=== PATIENT | female | born 1995 | race Caucasian/White ===

== ENCOUNTER 2023-10-14 19:23 | Outpatient (REF) | payer OTHER, SELFPAY ==
[2023-10-20 09:12] LABS: Age Gdln ACOG Testing Note (.); IGP, rfx Aptima HPV ASCU Note (.)
== END 2023-10-14 19:24 | disposition home or self-care (01) ==
LOC: LAB 19:23
PROVIDERS: Visit Provider Obstetrics & Gynecology
DX: Z01.419 Encounter for gynecological examination (general) (routine) without abnormal findings (principal)
CPT/HCPCS: G0145

== ENCOUNTER 2024-10-17 12:49 | Outpatient (REF) | payer OTHER, SELFPAY ==
[2024-10-24 03:13] LABS: Age Gdln ACOG Testing Note (.); HPV Aptima Positive (Negative); IGP, rfx Aptima HPV ASCU Note (.)
== END 2024-10-17 12:50 | disposition home or self-care (01) ==
LOC: LAB 12:49
PROVIDERS: Visit Provider Obstetrics & Gynecology
DX: Z01.419 Encounter for gynecological examination (general) (routine) without abnormal findings (principal)
CPT/HCPCS: 87624; 88175

== ENCOUNTER 2024-10-31 12:49 | Outpatient (REF) | payer OTHER, SELFPAY ==
--- OUTSIDE RECORDS SUMMARY | 2024-11-06 13:16 | XMS_ITS | CCD ---
Author Organization [facility] Care Team Providers Care Customer Sales Distributor Name Role Phone Marcanthony, Aimee Unavailable Unavailable Marcanthony, Aimee Unavailable Unavailable DOCTOR, OUT OF TOWN Unavailable Unavailable Marcanthony, Aimee Unavailable Unavailable DOCTOR, OUT OF TOWN Unavailable Unavailable Marcanthony, Aimee Unavailable Unavailable Marcanthony, Aimee Unavailable Unavailable Marcanthony, Aimee Unavailable Unavailable Latha, Edward E Unavailable Unavailable Latha, Edward E Unavailable Unavailable JOSEFINA, NAVITA Unavailable Unavailable JOSEFINA, NAVITA Unavailable Unavailable Giuliana Mckee DO Primary Care Provider [phone] [facility]OSCH Primary Care Unavailable MARYANA ., DR PA Consulting Unavailable MARYANA ., DR PA Admitting Unavailable MARYANA ., DR PA Attending Unavailable [facility]OS[facility] Primary Care Unavailable MARYANA ., DR PA Admitting Unavailable MARYANA ., DR PA Attending Unavailable MARYANA ., DR PA Consulting Unavailable ZIEBER, DR CALLIE Bhagat Consulting Unavailable GIULIANA MCKEE Primary Care Unavailable BORIS SMITH Attending Unavailable Giuliana Mckee DO Primary Care Provider Ellis Mijares DO Unavailable ELLIS MIJARES Attending Unavailable ELLIS MIJARES Attending Unavailable Allergies Allergy Classification Reported Allergen(s) Allergy Type Date of Onset Reaction(s) Facility (2 sources) No Known Allergies Drug allergy (disorder) 04-12-2017 [facility] Repository Medications Current Medications Medication Drug Class(es) Dates Sig (Normalized) Sig (Original) acetaminophen 325 mg oral tablet (1 source) Start: 04-23-2016 take 2 tablets by mouth every four hours as needed for pain acetaminophen (TYLENOL) 325 MG tablet Take 2 tablets by mouth every 4 hours as needed for Pain or Fever 120 tablet 3 04/23/2016 Active sertraline 50 mg oral tablet (1 source) Serotonin Reuptake Inhibitor Start: 10-11-2019 take 1 tablet by mouth once daily sertraline (ZOLOFT) 50 MG tablet Take 1 tablet by mouth daily 30 tablet 5 10/11/2019 Active Problems Active Problems Problem Classification Problem Date Documented Date Episodic/Chronic Anxiety disorders (1 source) Anxiety; Translations: [Anxiety disorder, unspecified] Onset: 10-11-2019 10-11-2019 Chronic E Codes: Natural/environment (1 source) Bitten by dog, initial encounter; Translations: [Bitten by dog, initial encounter] Onset: 04-29-2023 Episodic Esophageal disorders (1 source) Gastroesophageal reflux disease; Translations: [Gastro-esophageal reflux disease without esophagitis] Onset: 03-06-2013 03-06-2013 Chronic Immunizations and screening for infectious disease (2 sources) Suspected disease caused by 2019-nCoV; Translations: [Suspected 2019-nCoV infection] Onset: 04-29-2023 Episodic Menstrual disorders (7 sources) Excessive and frequent menstruation with irregular cycle; Translations: [Menorrhagia] Onset: 07-27-2022 Chronic Open wounds of extremities (2 sources) Open bite of left hand, initial encounter; Translations: [Laceration without foreign body of left hand, initial encounter] Onset: 04-29-2023 Episodic Unclassified (5 sources) Encounter for screening for malignant neoplasm of cervix; Translations: [Z12.4 - Encounter for screening for malignant neoplasm of cervix] Onset: 06-01-2017 Episodic Unclassified (2 sources) 37 weeks gestation of ; Translations: [35 weeks gestation of ] Onset: 04-16-2017 Past or Other Problems Problem Classification Problem Date Documented Da te Episodic/Chronic Coma; stupor; and brain damage (1 source) Loss of consciousness; Translations: [Unspecified coma] Onset: 04-22-2016 Resolved: 06-01-2016 06-01-2016 Episodic Headache; including migraine (1 source) Headache; Translations: [Headache] Onset: 12-07-2013 Resolved: 06-01-2016 06-01-2016 Episodic Normal and/or delivery (5 sources) Encounter for supervision of normal first , third trimester; Translations: [Single live ] Onset: 02-01-2017 Episodic OB-related trauma to perineum and vulva (1 source) First degree perineal laceration during delivery; Translations: [O70.0 - First degree perineal laceration during delivery] Onset: 08-06-2017 Episodic Other bone disease and musculoskeletal deformities (1 source) Costal chondritis; Translations: [Chondrocostal junction syndrome [Tietze]] Onset: 03-06-2013 Resolved: 10-11-2019 10-11-2019 Episodic Other injuries and conditions due to external causes (1 source) Injury of head; Translations: [Unspecified injury of head, initial encounter] Onset: 04-22-2016 Resolved: 06-01-2016 06-01-2016 Episodic Polyhydramnios and other problems of amniotic cavity (1 source) Full-term premature rupture of membranes, onset of labor within 24 hours of rupture; Translations: [O42.02 - Full-term premature rupture of membranes, onset of labor within 24 hours of rupture] Onset: 08-06-2017 Episodic Umbilical cord complication (1 source) Labor and delivery complicated by cord around neck, without compression, not applicable or unspecified; Translations: [O69.81X0 - Labor and delivery complicated by cord around neck, without compression, not applicable or unspecified] Onset: 08-06-2017 Episodic Results Test Name Value Interpretation Reference Range Facility HCG ( test) Ql (U)o n 10-31-2024 Interpretation and review of laboratory results Normal [facility] Preg Test, Ur Negative Negative [facility] Urinalysis macro (dipstick) panel (U)on 10-31-2024 Bilirubin, UA Negative Negative - 4(70) +++ mg/dL [facility] Blood, UA Positive Negative - 50 Terell/mcL [facility] Comment on above: large Clarity, UA Clear [facility] Color, UA Yellow [facility] Glucose, UA Negative Negative - 1999(110) ++++ mg/dL [facility] Interpretation and review of laboratory results Normal [facility] Ketones, UA Negative Negative - 160(16) ++++ mg/dL [facility] Leukocytes, UA Negative Negative - 500+++ Kaylyn/mcL [facility] Nitrite, UA Negative Negative - Positive [facility] pH, UA 5.5 5 - 9 [facility] Protein, UA Negative Negative - 1999(20) ++++ mg/dL [facility] Spec Grav, UA 1.03 1 - 1.03 [facility] Urobilinogen, UA 0.2 0.2 - 12 mg/dL [facility] IGP,APTIMA HPV,AGE GDLNon AGE GDLN ACOG TESTING Note . [facility] Comment on above: TESTS RESULT FLAG UN ITS REF RANGE LAB Clinician Provided Cytology Information Source.............Cervix;Endocervix No. of containers..01 ThinPrep Vial Age Algo ACOG Olinda... FLAG LEGEND: L-Low Normal,H-High Normal,LL-Alert Low,HH-Alert High <-Panic Low,>-Panic High,A-Abnormal,AA-Critical Abnormal Performed at: 01 =[address] [place] [address] Leisa Rivera MD, HPV APTIMA Positive Abnormal Negative [facility] Comment on above: This nucleic acid am plification test detects fourteen high- risk HPV types (16,18,31,33,35,39,45,51,52,56,58,59,66,68) without differentiation. Performed at: =[address] [id number] Gang Mower Operator: Leisa Rivera MD, Phone: [phone] Performed at: [address] [id number] Gang Mower Operator: Leisa Rivera MD, Phone: [phone] IGP, RFX APTIMA HPV ASCU Note Abnormal . [facility] Comment on above: TESTS RESULT FLAG UN ITS REF RANGE LAB DIAGNOSIS: [A] 02 EPITHELIAL CELL ABNORMALITY. ATYPICAL SQUAMOUS CELLS OF UNDETERMINED SIGNIFICANCE (ASC-US). PREDOMINANCE OF COCCOBACILLI CONSISTENT WITH SHIFT IN VAGINAL LUCY IS PRESENT. Recommendation: [A] 02 Suggest follow up as clinically appropriate. Specimen adequacy: 02 Satisfactory for evaluation. Endocervical and/or squamous metaplastic cells (endocervical component) are present. Areas of partially obscuring inflammatory exudate are present. Performed by: 02 Janelle Hooper, Hops Farmworker (ASCP) Electronically si... 02 Fanny Phan MD, Pathologist . 02 Pathologist ICD10: 02 R87.610, R87.5 Note: Note 02 The Pap smear is a screening test designed to aid in the detection of premalignant and malignant conditions of the uterine cervix. It is not a diagnostic procedure and should not be used as the sole means of detecting cervical cancer. Both false-positive and false-negative reports do occur. Test Methodology: Note 02 This liquid based ThinPrep(R) pap test was screened with the use of an image guided system. . 02 See below for HPV testing results. FLAG LEGEND: L-Low Normal,H-High Normal,LL-Alert Low,HH-Alert High <-Panic Low,>-Panic High,A-Abnormal,AA-Critical Abnormal Performed at: [address] [facility] [address] [id number] Leisa Rivera MD, Interpretation and review of laboratory results Abnormal [facility] BRUSH-SPATULA CERVIX ENDOCERVIX CLINISY[facility] Cytology Cervical or vaginal smear or scraping studyOrdered By: Radha Hayes on 10-14-2023 [facility] PAP ACOG PANEL 2: 21 to 29on 10-14-2022 . . Normal [facility] Comment on above: Performed By: #### [id number] #### [facility] [address] [address] [address] Thu Whitman Age Gdln ACOG Testing - [facility] Comment on above: Performed By: #### [id number] #### [facility] [address] [place] [address] Dr. Thu Whitman DIAGNOSIS: Comment [facility] Comment on above: Result Comment: NEGA TIVE FOR INTRAEPITHELIAL LESION OR MALIGNANCY. Performed By: #### [id number] #### [facility] [address] [address] [address] Thu Whitman Methodology: Comment [facility] Comment on above: Result Comment: This liquid based ThinPrep(R) pap test was screened with the use of an image guided system. Performed By: #### [id number] #### [facility] [address] [place] [address] Dr. Thu Whitman Note: Comment [facility] Comment on above: Result Comment: The Pap smear is a screening test designed to aid in the detection of premalignant and malignant conditions of the uterine cervix. It is not a diagnostic procedure and should not be used as the sole means of detecting cervical cancer. Both false-positive and false-negative reports do occur. . Performed By: #### [id number] #### [facility] [address] [place] [address] Dr. Thu Whitman Performed by: Comment Normal [facility] Comment on above: Result Comment: Denisse Dukes, Product Analyst Performed By: #### 4 [id number] #### [facility] [address] [place] [address] Dr. Thu Whitman Reflex Criteria: Comment Normal [facility] Comment on above: Result Comment: The HPV DNA reflex criteria were not met with this specimen result therefore, no HPV testing was performed. . Performed By: #### [id number] #### [facility] [address] [place] [address] Dr. Thu Whitman Specimen adequacy: Comment Normal [facility] Comment on above: Result Comment: Sati sfactory for evaluation. Endocervical and/or squamous metaplastic cells (endocervical component) are present. Performed By: #### 4 [id number] #### [facility] [address] [place] [address] Dr. Thu Whitman CBC AUTO DIFFon 07-27-2022 BASO # 0.1 103/ul Normal 0.0-0.1 [facility] Comment on above: Performed By: #### C BC #### [facility] [address] [place] [address] Dr. Thu Whitman Basophils/100 WBC (Bld) 1.0 % Normal 0.2-2.0 [facility] Comment on above: Performed By: #### C BC #### [facility] [address] [place] [address] Dr. Thu Whitman EO # 0.1 103/ul Normal 0.0-0.7 [facility] Comment on above: Performed By: #### C BC #### [facility] [address] [place] [address] Dr. Thu Whitman Eosinophils/100 WBC (Bld) 2.0 % Normal 0.9-7.0 [facility] Comment on above: Performed By: #### C BC #### [facility] [address] [place] [address] Dr. Thu Whitman Erythrocyte distribution width (RBC) [Ratio] 12.2 % Normal 11.0-15.0 [facility] Comment on above: Performed By: #### C BC #### [facility] [address] [place] [address] Dr. Thu Whitman Hematocrit (Bld) [Volume fraction] 43.3 % Normal 36.0-48.0 [facility] Comment on above: Performed By: #### C BC #### [facility] [address] [place] [address] Dr. Thu Whitman Hemoglobin (Bld) [Mass/Vol] 13.8 g/dL Normal 12.0-16.0 [facility] Comment on above: Performed By: #### C BC #### [facility] [address] [place] [address] Dr. Thu Whitman IG # 0.01 10e3/ul Normal 0.00-0.03 [facility] Comment on above: Performed By: #### C BC #### [facility] [address] [place] [address] Dr. Thu Whitman IG % 0.2 % Normal 0.0-0.5 [facility] Comment on above: Performed By: #### C BC #### [facility] [address] [place] [address] Dr. Thu Whitman LYMPH # 2.3 103/ul Normal 1.2-3.8 [facility] Comment on above: Performed By: #### C BC #### [facility] [address] [place] [address] Dr. Thu Whitman Lymphocytes/100 WBC (Bld) 47.2 % Normal 20.5-60.0 [facility] Comment on above: Performed By: #### C BC #### [facility] [address] [place] [address] Dr. Thu Whitman MANUAL DIFF REQ NO Normal [facility] Comment on above: Performed By: #### C BC #### [facility] [address] [place] [address] Dr. Thu Whitman MCH (RBC) [Entitic mass] 28.5 pg Normal 26.7-34.0 [facility] Comment on above: Performed By: #### C BC #### [facility] [address] [place] [address] Dr. Thu Whitman MCHC (RBC) [Mass/Vol] 31.9 g/dL Normal 29.9-35.2 [facility] Comment on above: Performed By: #### C BC #### [facility] [address] [address] [address] Thu Whitman MCV (RBC) [Entitic vol] 89.5 fL Normal 81.0-99.0 [facility] Comment on above: Performed By: #### C BC #### [facility] [address] [address] [address] Thu Whitman MONO # 0.4 103/ul Normal 0.3-0.8 [facility] Comment on above: Performed By: #### C BC #### [facility] [address] [place] [address] Dr. Thu Whitman Monocytes/100 WBC (Bld) 7.4 % Normal 1.7-12.0 [facility] Comment on above: Performed By: #### C BC #### [facility] [address] [place] [address] Dr. Thu Whitman NEUT # 2.1 103/ul Normal 1.4-6.5 [facility] Comment on above: Performed By: #### C BC #### [facility] [address] [place] [address] Dr. Thu Whitman Neutrophils/100 WBC (Bld) 42.2 % Critically low 43.0-75.0 [facility] Comment on above: Performed By: #### C BC #### [facility] [address] [place] [address] Dr. Thu Whitman Platelet mean volume (Bld) [Entitic vol] 10.0 fL Normal 9.5-13.5 [facility] Comment on above: Performed By: #### C BC #### [facility] [address] [place] [address] Dr. Thu Whitman PLT 218 103/ul Normal 150-450 [facility] Comment on above: Performed By: #### C BC #### [facility] [address] [place] [address] Dr. Thu Whitman RBC 4.84 106/ul Normal 4.20-5.40 [facility] Comment on above: Performed By: #### C BC #### [facility] [address] [address] [address] Thu Whitman WBC 4.9 103/ul Normal 4.0-11.0 [facility] Comment on above: Performed By: #### C BC #### [facility] [address] [place] [address] Dr. Thu Whitman FREE T4on 07-27-2022 Free T4 [Mass/Vol] 0.85 ng/dL Normal 0.76-1.46 [facility] Comment on above: Performed By: #### F T4 #### [facility] [address] [place] [address] Dr. Thu Whitman GLYCOHEMOGLOBIN A1Con 2022 ADA RECOMMENDATION SEE BELOW Normal [facility] Comment on above: Result Comment: ADA RECOMMENDED LIMIT 4.0 - 6.0 ADA THERAPEUTIC TARGET < 7.0 ACTION SUGGESTED > 7.0 Performed By: #### A 1C #### [facility] [address] [place] [address] Dr. Thu Whitman Glucose [Mass/Vol] 94 mg/dL Normal [facility] Comment on above: Performed By: #### A 1C #### [facility] [address] [place] [address] Dr. Thu Whitman HbA1c (Bld) [Mass fraction] 4.9 % Normal 4.5-6.2 [facility] Comment on above: Performed By: #### A 1C #### [facility] [address] [place] [address] Dr. Thu Whitman PREG QUANT HCGon 07-27-2022 HCG QUANT <1 Normal [facility] Comment on above: Performed By: #### T SH, PREGQNT #### [facility] [address] [place] [address] Dr. Thu Whitman HCG RANGE SEE BELOW Normal [facility] Comment on above: Result Comment: 5-50 0.2-1 WEEK 50-500 1-2 WEEKS 100-5,000 2-3 WEEKS 500-10,000 3-4 WEEKS 1,000-50,000 4-5 WEEKS 10,000-100,000 5-6 WEEKS 15,000-200,000 6-8 WEEKS 10,000-100,000 2-3 MONTHS Performed By: #### T SH, PREGQNT #### [facility] [address] [place] [address] Dr. Thu Whitman PROTIMEon 07-27-2022 INR Coag (PPP) [Relative time] 1.04 {INR} Normal [facility] Comment on above: Performed By: #### P TT, PT #### [facility] [address] [place] [address] Dr. Thu Whitman INR GUIDELINES SEE BELOW Normal [facility] Comment on above: Result Comment: HELGA RED INR: 2.0 - 3.0 CONDITIONS NOT LISTED BELOW 2.5 - 3.5 FOR PROSTHETIC HEART VALVE REPLACEMENT 2.5 - 3.5 RECURRENT THROMBOSIS Performed By: #### P TT, PT #### [facility] [address] [place] [address] Dr. Thu Whitman PT Coag (PPP) [Time] 11.0 s Normal 9.0-11.6 [facility] Comment on above: Performed By: #### P TT, PT #### [facility] [address] [place] [address] Dr. Thu Whitman PTTon 07-27-2022 aPTT Coag (Bld) [Time] 28.9 s Normal 22.3-36.2 [facility] Comment on above: Performed By: #### P TT, PT #### [facility] [address] [place] [address] Dr. Thu Whitman TSHon 07-27-2022 TSH 1.549 uIU/mL Normal 0.358-3.740 [facility] Comment on above: Performed By: #### T SH, PREGQNT #### [facility] [address] [place] [address] Dr. Thu Whitman US PELVIS AND TRANSVAGon US PELVIS AND TRANSVAG EXAMINATION: US PELVIS AND TRANSVAG HISTORY: Excessive menstruation with irregular cycle COMPARISON: No relevant comparison available. TECHNIQUE: Transabdominal and transvaginal sonographic examination. FINDINGS: UTERUS: Normal size and appearance. Uterus size: 8.1 x 4.4 x 4.5 cm ENDOMETRIUM: Normal homogeneous appearance. Endometrial thickness: 6 mm RIGHT OVARY: Contains numerous small follicles. Duplex Doppler demonstrates normal waveform and flow; resistive index 0.7. Ovary size: 4.8 x 3.4 x 2.0 cm LEFT OVARY: Contains numerous small follicles. Duplex Doppler demonstrates normal waveform and flow; resistive index 0.4. Ovary size: 3.6 x 2.8 x 2.4 cm CUL-DE-SAC: Unremarkable. No significant free fluid. BLADDER: Unremarkable. OTHER: None. IMPRESSION: 1. Normal pelvic ultrasound. Electronically authenticated by: CALLIE WEISS Date: 2022-07-27 11:20 Normal [facility] COVID-19, Rapidon 07-31-2021 SARS-CoV-2 (COVID-19) RNA TASNEEM+probe Ql (Unsp spec) Not detected Not Detected [facility] Comment on above: Rapid NAAT: The specimen is NEGATIVE for SARS-CoV-2, the novel coronavirus associated with COVID-19. The ID NOW COVID-19 assay is designed to detect the virus that causes COVID-19 in patients with signs and symptoms of infection who are suspected of COVID-19. An individual without symptoms of COVID-19 and who is not shedding SARS-CoV-2 virus would expect to have a negative (not detected) result in this assay. Negative results should be treated as presumptive and, if inconsistent with clinical signs and symptoms or necessary for patient management, should be tested with an alternative molecular assay. Negative results do not preclude SARS-CoV-2 infection and should not be used as the sole basis for patient management decisions. Fact sheet for Healthcare Providers: https://www.fda.gov/media/284049/download Fact sheet for Patients: https://www.fda.gov/media/316508/download Methodology: Isothermal Nucleic Acid Amplification Specimen Description .NASOPHARYNGEAL SWAB [facility] Provider Letteron 12-31-2020 Provider Letter (Inserted Image. Rhonda ble to display) December 31, 2020 Dear Summer, We have been trying to reach you with no success. It is important that you return our call regarding your appointment upon receiving this letter. Also, at the time of your call, please provide us with your current information. Thank you for your prompt attention to this matter. Sincerely, [facility] [address] [place] [address] [facility] CBCon 08-05-2020 Erythrocyte distribution width (RBC) [Ratio] 12.5 % Normal 11.5 - 14.5 [facility] Comment on above: Performed By: #### C BC #### [address] [address] Hematocrit (Bld) [Volume fraction] 39.1 % Normal 36.0 - 46.0 [facility] Comment on above: Performed By: #### C BC #### [address] [address] Hemoglobin (Bld) [Mass/Vol] 13.2 g/dL Normal 12.0 - 16.0 [facility] Comment on above: Performed By: #### C BC #### [address] [address] MCHC (RBC) [Mass/Vol] 33.7 g/dL Normal 32.0 - 36.0 [facility] Comment on above: Performed By: #### C BC #### [address] [address] MCV (RBC) [Entitic vol] 93 fL Normal 80 - 100 [facility] Comment on above: Performed By: #### C BC #### [address] [address] Platelets (Bld) [#/Vol] 189 10*3/uL Normal 150 - 450 [facility] Comment on above: Performed By: #### C BC #### [address] [address] RBC (Bld) [#/Vol] 4.21 x10E12/L Normal 4.00 - 5.20 [facility] Comment on above: Performed By: #### C BC #### [address] [address] WBC (Bld) [#/Vol] 4.9 10*3/uL Normal 4.4 - 11.3 [facility] Comment on above: Performed By: #### C BC #### [address] [address] HCG,SERUM QUALITATIVEon 07-22 HCG,SERUM QUALITATIVE Negative Normal Negative [facility] Comment on above: Performed By: #### H CGS #### [address] [address] Provider Note - ED v2on 07-22 Provider Note - ED v2 Provider Note - ED v2: Chart Review: ED NOTES ED NOTES: HPI: Patient started her period on Wednesday and has noticed increased bleeding ever since. She states she is feeling approximately 2 pads per hour. Patient does not take any current control pills and follows up with Dr. Dias LAW ENFORCEMENT DIRECTOR in [place]. She denies any nausea vomiting or fever. Review of systems negative otherwise. ROS: All systems are negative other than as noted in HPI. Physical Exam I have reviewed the triage vital signs. Const: Well nourished, well developed, appears stated age, no acute distress Eyes: PERRL, EOM intact, no conjunctival injection, vision grossly normal HENT: Neck supple without meningismus , Moist mucous membranes, no pharyengeal swelling or exudate CV: Regular rate and rhythm, Warm, well-perfused extremities. Chest non tender RESP: Lungs clear bilaterally, Unlabored respiratory effort GI: soft, non-tender, non-distended, no masses : MSK: No gross deformities appreciated Back: Non tender, no pain with ROM Skin: Warm, dry. No rashes Neuro: Alert and oriented x4, GCS 15 , seismograph helper II-XII grossly intact. Sensation and motor function of extremities grossly intact. Psych: Appropriate mood and affect. I have reviewed and confirmed nurses/medics notes for patient past, social and family history. Portions of this note were dictated by speech recognition. An attempt at proof reading was made to minimize errors. Minor errors in gold leaf laborer may be present. HISTORY OF PRESENTING ILLNESS SUMMER is a 24 year old Female and was seen by me at 05-Aug-2020 12:03. Triage Information: Most recent Vital Sign Value Date Temp (F): 98.6 08-05-2020 12:36 Temp (C): 37 08-05-2020 12:36 Heart Rate (beats/min): 77 08-05-2020 12:36 Respirations (breaths/min): 16 08-05-2020 12:36 SpO2 (%): 100 08-05-2020 12:36 BP Systolic (mm Hg): 120 08-05-2020 12:36 BP Diastolic (mm Hg): 74 08-05-2020 12:36 PAST MEDICAL HISTORY ATTESTATION: I have reviewed and confirmed nurse's/medic's notes for patient's medications, allergies, and medical, surgical, family and social history ALLERGIES/INTOLERANCES: No Known Allergies HEALTH HISTORY: No documented data. OUTPATIENT MEDICATIONS: Home Medications Review Status for Reconciliation: Complete Med Status: No Current Medications SIGNIFICANT EVENTS: No documented data. LAW ENFORCEMENT DIRECTOR: Is : unable to answer Is : no Order Test: order serum test RESULTS/VITAL SIGNS RESULTS: Recent Lab Results: I have reviewed these laboratory results: Complete Blood Count 05-Aug-2020 12:41:00 ResultValue White Blood Cell Count 4.9 Red Blood Cell Count 4.21 HGB 13.2 HCT 39.1 MCV 93 MCHC 33.7 PLT 189 RDW-CV 12.5 HCG, Serum 05-Aug-2020 12:41:00 ResultValue HCG, Serum NEGATIVE VITAL SIGNS: T PRBP SpO2O2(LPM) %FiO2 Method 05-Aug-2020 13:37:[id number] 100 05-Aug-2020 12:36:[id number] 100 05-Aug-2020 12:05:[id number]/74 100 MEDICAL DECISION MAKING/ED COURSE MDM/ED COURSE: 1330-final results reviewed with patient. Lab work here was unremarkable including a negative test and stable hemoglobin and hematocrit. Patient has stable vital signs and I discussed with her the option of me calling her LAW ENFORCEMENT DIRECTOR or her taking care of it on discharge and she states she would prefer to be discharged where she will contact them and discuss possible initiation of hormonal control peers. Patient given discharge instructions as noted below and discharged home. Your lab work today does not show any sign of anemia and you are not currently . As discussed, I do recommend that you contact your LAW ENFORCEMENT DIRECTOR today or tomorrow and discuss your symptoms as to whether or not they would recommend starting on some sort of a hormonal control to help regulate your bleeding. Please otherwise get plenty rest and fluids and feel free to return to the nearest ER for any new or worsening concerns. CLINICAL IMPRESSION Diagnosis/Annotation: ED Dx Name:Abnormal uterine bleeding Code:N93.9 Disposition: discharged Type: home ATTESTATION CRITICAL CARE TIME Is this a critically ill patient: no Electronic Signatures: Jitendra Lux I (WELLNESS PROGRAM MANAGER-INSURANCE ADMINISTRATOR) (Signed 05-Aug-2020 13:41) Authored: ED Notes, HPI, PMH, Results/Vital Signs, MDM/ED Course, Clinical Impression, Attestation, Chart Review, Scores Last Updated: 05-Aug-2020 13:41 by Jitendra Lux I (WELLNESS PROGRAM MANAGER-INSURANCE ADMINISTRATOR) [facility] Risk Screen - Adult Emergenc n 08-05-2020 Risk Screen - Adult Emergency Preferred Language: Preferred Language: Preferred Language for Discussing Health Care (patient/designee)Azeri Advanced Directives: Advance Directive/DNRno Family Violence Adult: Abuse Screen: Are you or have you been threatened or abused physically, emotionally, or sexually by anyoneno Learning Assessment (Patient): Learning Assessment (Patient): Patient is Able to be Assessed for Learningyes Factors Influencing Readiness to Learnn/a Factors that Impact Ability to Learnnone Devices/Methods Used to Communicatenone Learning Preferencesverbal instruction; written material Cultural Considerationsnone Developmental Considerationsnone Confucianism Considerationsnone Learning Assessment (Other Learner): Learning Assessment (Other Learner): Other learner availableno Pressure Injury/TB/Substance: Pressure Injury: Do you have a coughno Substance Use Current or Former Historynever: Cigarette/Tobacco, e-Cigarette/Vaping, Alcohol, Street Drugs Admission Risk Screen: Significant IndicatorsComplete CAGE: CAGE: Is this an injured patient at a Trauma Center ([facility]/[place]/ [place]): no Electronic Signatures: Kay Medley) (Signed 05-Aug-2020 12:43) Authored: Preferred Language, Advanced Directives, Family Violence Adult, Learning Assessment (Patient), Learning Assessment (Other Learner), Pressure Injury/TB/Substance, Pressure Injury, CAGE Last Updated: 05-Aug-2020 12:43 by Kay Medley) [facility] Triage - EDon 08-05-2020 Triage - ED Quick Triage: Are You no Have You Given In The Last 6 Weeksyes Are You Currently Breastfeedingno (1) Chart Review: PRIMARY ASSESSMENT FEMI KRAMER's primary assessment is Within Defined Limits. The airway is open and patent. Breathing spontaneous and unlabored with clear breath sounds bilaterally. Circulation is normal with good peripheral pulses. Skin is warm and dry and color is normal for race. ARRIVAL INFORMATION Means of Arrival: Ambulatory Mode of Arrival: private vehicle Arrival From: home Accompanied By: self Language: Spoken Language Preferred: Azeri Reading Language Preferred: Azeri Present on Arrival: Device Present on Arrival to ED: no CHIEF COMPLAINT FEMI KRAMER is a Female patient with a chief complaint of vaginal bleeding (c/o vaginal bleeding x 2 days, heavier than normal. denies any pain. pt had a tubal ligation done on 06/26. denies feeling lightheaded). Triage Date/Time: 05-Aug-2020 12:05 Pain Rating (0-10): 0 = None Vital Signs: Temperature: 98.6F ( 37.0C) Blood Pressure: 120/74 Mean: Heart Rate: 77 Respiratory Rate: 16 Pulse Oximetry: 100% Height: 5 feet 4 inches. 162.5 CM Weight: 150.3 pounds. Calculated 68.2 kg. 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 Symptoms Are Negative For: fever and nausea. Risk Screens Suicide Risk Screen In the Past Month: Have you wished you were or wished you could go to sleep and not wake up no In the Past Month: Have you had any actual thoughts of killing yourself no In Your Lifetime: Have you ever done anything, started to do anything, or prepared to do anything to end your life no Gillespie Fall Scale Screening Has the patient fallen before (or is the patient in the ED as a result of a fall) has not had a fall Does the patient have an impaired gait does not have impaired gait Is the patient cognitively impaired not cognitively impaired Interventions: Gillespie Fall Interventions: LOW INTERVENTIONS: *patient oriented to surroundings and call system, * patient/family falls education completed and documented, *patients fall status communicated during bedside handoff, *whiteboard updated, *mode of toileting discussed with patient, *bed in low position with brakes locked, *call light in reach, * non-skid footwear TRAVEL HISTORY Travel History Coronavirus Screening: no exposure or symptoms Travel Exposure History: NO travel to International locations in the past 30 days PAIN Pain Scale Used: PRATIBHA Pain Rating (0-10): 0 = None Past Medical History: Past Medical History Reviewedyes Electronic Signatures: Kay Medley (RN) (Signed 05-Aug-2020 13:59) Authored: Quick Triage, Risk Screens, Pain, Arrival, ABCD, Travel History, Chart Review, Scores, Past Medical History Last Updated: 05-Aug-2020 13:59 by Kay Medley (BRENDA) References: 1. Data Referenced From Provider Note - ED v2 05-Aug-2020 12:25 Normal [facility] Ambulatory Clinical Summaryo n 07-09-2020 Ambulatory Clinical Summary {[id number] Normal [facility] Obstetrics Office/Clinic Not john 07-09-2020 Obstetrics Office/Clinic Note Chief Complaint 6 week PP and PO, delivered 05-29-2020, had tubel 06-26-2020, EPDS score 9 , bottlefeeding - formula Paradox Depression Score EPDS Score: 9 History of Present Illness 24 yo s/p in May, then L/S bilat salpingectomy 06/26, doing well. Bottle feeding. EPDS score of 9. Mood good. VB stopped, just spotting. No pain. Incisions healed well. No sex yet. Review of Systems Constitutional: No fever, No chills, No sweats, No weakness. Respiratory: No shortness of breath, No cough. Cardiovascular: No chest pain, Noperipheral edema. Physical Exam Vitals & Measurements T: 36.7 ?C (Temporal Artery) BP: 114/72 HT: 162 cm WT: 70.2 kg WT: 70.2 kg BMI: 26.75 General Exam: Constitutional: alert, no acute distress, well hydrated, well developed, well nourished. Skin: normal color, no rashes, no lesions, no unusual bruising. Head: atraumatic, normocephalic. Eyes: EOM intact, no nystagmus, no icterus. Ears: no external deformities, gross hearing intact. Mouth: normal dentition Respiratory: no respiratory distress. Abdomen: nondistended, nontender, no guarding, no masses. Spine: normal mobility, no deformities. Extremities: no deformities, no clubbing, no cyanosis, no edema. Neuro: normal, cranial nn II-XII grossly intact, sensation intact, motor intact, station & gait normal. Psych: oriented to all spheres, affect and mood appropriate, normal interaction, good eye contact. Pelvic Exam: Vulva: normal appearance, normal hair distribution, no lesions or masses. Urethra: normal, no masses, non-tender, no discharge. Bladder: normal, non-tender, non-distended. Vagina: normal, rugated, physiologic discharge, no lesions, no masses, adequate pelvic support. Cervix: normal, midposition, no motion tenderness, no lesions. Uterus: smooth, mobile, non-tender, adequate support, anteverted. Adnexa: normal, no masses, mobile, nontender. Assessment/Plan RTC 1 yr or prn. 1. examination following vaginal delivery (Z39.2: Encounter for routine follow-up) Ordered: care only (separate procedure) 79441 Orders: acetaminophen-oxycodone, 1 tab(s), Oral, q6hr Pain 4-7, 15 tab(s), Refill(s) 0, [facility], 162, cm, 06/18/20 7:34:00 EST, Height/Length Dosing, 70.6, kg, 06/18/20 7:34:00 EST, Weight Dosing docusate, 100 mg = 1 cap(s), Oral, BID, Take to avoid constipation, # 40 cap(s), Refills(s) 0, Pharmacy: [facility], 162, cm, 06/18/20 7:34:00 EST, Height/Length Dosing, 70.6, kg, 06/18/20 7:34:00 EST, Weight Dosing ibuprofen, 600 mg = 1 tab(s), Oral, q6hr, PRN Pain 1-3, # 30 tab(s), Refills(s) 0, Pharmacy: [facility], 162, cm, 06/18/20 7:34:00 EST, Height/Length Dosing, 70.6, kg, 06/18/20 7:34:00 EST, Weight Dosing Follow-up With When Contact Information [facility] In 1 year Additional Instructions: Problem List/Past Medical History Ongoing No qualifying data Historical Depression during , antepartum 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 Never Smokeless Tobacco Use:., 07/09/2020 Family History Diabetes mellitus type 1: Grandparent. Hypertension: Grandparent. [facility] Patient Educationon 07-09-19 21 Patient Education Heart Disease Preven tion Heart disease can lead to heart attacks and strokes. This is a leading cause of . Heart disease can be inherited and can be caused from the lifestyle you lead. You can do a lot to keep your heart and blood vessels healthy. WHAT SHOULD I DO EACH DAY TO KEEP MY HEART HEALTHY? ? Do not smoke. ? Follow a healthy eating plan as recommended by your caregiver or dietitian. ? Be active for a total of 30 minutes most days. Ask your caregiver what activities are best for you. ? Limit the amount of alcohol you drink. ? Involve family and friends to help you with a healthy lifestyle. HOW DOES HEART DISEASE CAUSE HIGH BLOOD PRESSURE? ? Narrowed blood vessels leave a smaller opening for blood to flow through. It is like turning on a garden hose and holding your thumb over the opening. The smaller opening makes the water shoot out with more pressure. In the same way, narrowed blood vessels can lead to high blood pressure. Other factors, such as kidney problems and being overweight, also can lead to high blood pressure. ? If you have high blood pressure you may need to take blood pressure medicine every day. Some types of blood pressure medicine can also help keep your kidneys healthy. ? Many people with diabetes also have high blood pressure. If you have heart, eye, or kidney problems from diabetes, high blood pressure can make them worse. HOW DO MY BLOOD VESSELS GET CLOGGED? ? Cholesterol is a substance that is made by the body and used for many important functions. It is also found in food that comes from animals. When your cholesterol is high, it can stick to the insides of your blood vessels, making them narrowed and even clogged. This problem is called atherosclerosis . ? Narrowed and clogged blood vessels make it harder for blood to get to important body organs. This can cause problems such as: ? Chest pain (angina ). Angina can cause temporary pain in your chest, arms, shoulders, or back. You may feel the pain more when your heart beats faster, such as when you exercise. The pain may go away when you rest. You also may feel very weak and sweaty. ? A heart attack. A heart attack happens when a blood vessel in or near the heart becomes blocked. Not enough blood is getting to the heart. During a heart attack, you may have chest pain in your chest, arms, shoulders, or back along with nausea, indigestion, extreme weakness, and sweating. WHAT CAN I DO TO PREVENT HEART DISEASE? ? Keep your blood pressure under control as recommended by your caregiver. ? Keep your cholesterol under control. Have it checked at least once a year. Target cholesterol levels for most people are: ? Total blood cholesterol level: Below 200. ? LDL (bad) cholesterol: Below 100. ? HDL (good) cholesterol: Above 40 in men and above 50 in women. ? Triglycerides (another type of fat in the blood): Below 150. ? Make physical activity a part of your daily routine. Check with your caregiver to learn what activities are best for you. ? Make sure that the foods you eat are heart-healthy. ? Include foods high in fiber, such as oat bran, oatmeal, whole-grain breads and cereals. ? Cut back on fried foods and foods high in saturated fat. This includes foods such as meats, butter, whole dairy products, shortening, and coconut or palm oil. ? Avoid salty foods such as canned food, luncheon meat, salty snacks, and fast food. ? Eat more fruits and vegetables. ? Drink less alcohol. ? Lose weight as recommended by your caregiver. ? If you smoke, quit. Your caregiver can help you with quitting options. ? Ask your caregiver whether you should take a daily aspirin. Studies have shown that taking aspirin can help reduce your risk of heart disease and stroke. ? Take your prescribed medicines as directed. WHAT ARE THE WARNING SIGNS OF A HEART ATTACK? You may have one or more of the following warning signs: ? Chest pain or discomfort. ? Pain or discomfort in your arms, back, jaw, or neck. ? Indigestion or stomach pain. ? Shortness of breath. ? Sweating. ? Nausea or vomiting. ? Lightheadedness. ? No warning signs at all or they may come and go. FOR MORE INFORMATION To find out more about heart disease and stroke prevention, visit the [place] [employer] website at www.americanheart.org Document Released: 01/19/2005 Document Revised: 12/06/2012 Document Reviewed: 08/03/2008 ExitCare? Patient Information ?2013 [facility]. [facility] Pre-Certification Formon Pre-Certification Form [id number]:12 7 [facility] IntraOperative Documentson 0 07-01-2020 IntraOperative Documents [id number]:12 7 [facility] Main OR Intraoperative Recor don 07-01-2020 Main OR Intraoperative Record IntraOp Document Type FT Summary Primary Physician: TAWANDA SARMIENTO, Ludivina Phillip Finalized Date/Time: 07/01/20 09:20:13 Pt. Name: FEMI KRAMER Leola Samaniego/Sex: 1995 Female Med Rec #: [id number] Physician: Ludivina GARDNER MD Financial #: [id number] Pt. Type: A Room/Bed: [facility] Admit/Disch: 06/26/20 11:11:26 - 06/26/20 17:05:00 Institution: Case Times FT Entry 1 Patient Times In Room 06/26/20 13:41:00 Out Room 06/26/20 14:28:00 Procedure Times Start 06/26/20 14:02:00 Stop 06/26/20 14:24:00 Anesthesia Times Start 06/26/20 13:41:00 Stop 06/26/20 14:28:00 Last Modified By: Barrett GUTIERREZ, Nazia Phillip 06/26/20 14:28:41 General Comments: 07/01/20 Chart open to review and send charges. Chelsey Dumont RN Case Attendance FT Entry 1 Entry 2 Entry 3 Case Attendee Pamela Orr MD, Ludivina Hyde RN, Nazia Phillip Role Performed Anesthesiologist Surgeon - Primary Burial Needs Salesperson - Primary Drilling Engineering Manager Time In 06/26/20 13:41:00 06/26/20 13:41:00 06/26/20 13:41:00 Time Out 06/26/20 14:28:00 06/26/20 14:28:00 06/26/20 14:28:00 Procedure TUBAL LIGATION TUBAL LIGATION TUBAL LIGATION LAPAROSCOPIC(Bilateral) LAPAROSCOPIC(Bilateral) LAPAROSCOPIC(Bilateral) Comments DR MILLIGAN SUPERVISING Last Modified By: Barrett GUTIERREZ, Nazia Hyde RN, Nazia Hyde RN, Nazia Phillip 06/26/20 14:36:36 06/26/20 14:36:36 06/26/20 14:36:36 Entry 4 Entry 5 Case Attendee Janelle Orozco RN, CNOR, Wagner Role Performed Scrub - Primary MARITIME PILOT Time In 06/26/20 13:41:00 06/26/20 13:41:00 Time Out 06/26/20 14:28:00 06/26/20 14:28:00 Procedure TUBAL LIGATION TUBAL LIGATION LAPAROSCOPIC(Bilateral) LAPAROSCOPIC(Bilateral) Comments Last Modified By: Barrett GUTIERREZ, Nazia Nazia He RN 06/26/20 14:36:36 06/26/20 14:36:36 Perioperative Protocols FT Pre-Care Text: Implements protective measures prior to operative or invasive procedure, confirms identity before the operative or invasive procedure, verifies operative procedure, surgical site, and laterality Entry 1 Procedure(s) TUBAL LIGATION Patient Identity Birthday, ID Band LAPAROSCOPIC(Bilateral) Verified (select at Check, Patient least 2): Participation Consents / H and P Anesthesia Consent, Operative Site N/A Verified HandP, Surgery/Procedure Marking Verified Consent Surgical Site Yes Laterality Verified n/a Verified Procedure Verified Yes Correct Patient Yes Position Verified Availability Equipment, Medication Prep Dry Yes Verified (If Applicable) PreOp Antibiotic No Time Out Pamela Orr, Given Participants Ludivina GARDNER MD, Crosby RN, Amy J, Ojeda, Rachel L, Alva GUTIERREZ, Wagner MENDES Time Out Complete 06/26/20 14:01:00 Outcomes Met? Yes Last Modified By: Nazia Hyde RN 06/26/20 14:05:28 Post-Care Text: The patient is free from signs and symptoms of injury caused by extraneous objects Allergy Information FT Pre-Care Text: Verifies allergies Entry 1 Allergies Reviewed? Yes Allergies Reviewed Self/Patient With Outcomes Met? Yes Last Modified By: Nazia Hyde RN 06/26/20 10:11:50 Post-Care Text: The patient received appropriate medication(s) safely administered during the perioperative period Surgical Procedures FT Entry 1 Procedure Description Procedure TUBAL LIGATION Modifiers Bilateral LAPAROSCOPIC Surgeon Description BILATERAL LAPAROSCOPIC SALPINGECTOMY Primary Procedure Yes Primary Surgeon Ludivina GARDNER MD Start 06/26/20 14:02:00 Stop 06/26/20 14:24:00 Anesthesia Type General Surgical Service Obstetric Gynecology Wound Class 2 - Clean-Contaminated Last Modified By: Nazia Hyde RN 06/26/20 14:36:38 General Case Data FT Pre-Care Text: Classifies surgical wound, implements aseptic technique, initiates traffic control Entry 1 Case Information OR OR 6 FT Case Level Level 3 Wound Class 2 - Clean-Contaminated Specialty Obstetric Gynecology ASA Class 2 Preop Diagnosis ELECTIVE STERILIZATION Postop Same As Preop Yes Postop Diagnosis ELECTIVE STERILIZATION Outcomes Met? Yes Last Modified By: Nazia Hyde RN 06/26/20 14:05:35 Post-Care Text: The patient is free from signs and symptoms of infection Skin Assessment (Pre Procedure) FT Pre-Care Text: Implements protective measures to prevent skin/ tissue injury due to thermal or mechanical sources Evaluates for signs and symptoms of physical injury to skin and tissue Entry 1 Skin Integrity Intact, Almond, Warm, and Skin Abnormality No Dry Outcomes Met? Yes Last Modified By: Nazia Hyde RN 06/26/20 14:05:46 Post-Care Text: The patient is free from signs and symptoms of injury caused by extraneous objects Patient Positioning FT Pre-Care Text: Identifies physical alterations that require additional precautions for procedure-specific positioning, verifies presence of prosthetics or corrective devices, positions the patient, evaluates the patient for signs and symptoms of injury as a result of positioning En (more content not included)... Normal [facility] Coding Summary.on 06-29-2020 Coding Summary. CODING DATE: FINAL [facility] STATUS: Home (Routine DC) PAYOR: Medicaid EAPG DESCRIPTION 0999 UNASSIGNED ADMIT DX: REASON FOR VISIT DX: Z30.2 Encounter for sterilization FINAL DX: PRINCIPAL: Z30.2 Encounter for sterilization SECONDARY: PYMT PROC EAPG STAT DESCRIPTION DOCTOR NAME DATE 56918 Laparoscopy, surgical; Ludivina GARDNER MD 06/26/2020 with removal of adnexal structures (partial or total oophorectomy and/or salpingectomy) 83752 Anesthesia for Wilfred Milligan Jr., DO 06/26/2020 intraperitoneal procedures in lower abdomen including laparoscopy; not otherwise specified NOTE: The code number assigned matches the documented diagnosis and / or procedure in the patient's chart. However, the narrative phrase printed from the coding software may appear abbreviated, or result in slightly different terminology. Coded By: Kelly Leal Date Saved: 06/29/2020 09:41 pm Normal [facility] Coding Summary. CODING DATE: FINAL [facility] STATUS: Home (Routine DC) PAYOR: Medicaid EAPG DESCRIPTION 0999 UNASSIGNED ADMIT DX: REASON FOR VISIT DX: Z30.2 Encounter for sterilization FINAL DX: PRINCIPAL: Z30.2 Encounter for sterilization SECONDARY: PYMT PROC EAPG STAT DESCRIPTION DOCTOR NAME DATE 14652 Laparoscopy, surgical; Ludivina GARDNER MD 06/26/2020 with removal of adnexal structures (partial or total oophorectomy and/or salpingectomy) 27562 Anesthesia for Twin Milligan Jr., DOyde 06/26/2020 intraperitoneal procedures in lower abdomen including laparoscopy; not otherwise specified NOTE: The code number assigned matches the documented diagnosis and / or procedure in the patient's chart. However, the narrative phrase printed from the coding software may appear abbreviated, or result in slightly different terminology. Revised Coded By: Kelly Leal Revised Date Saved: 06/29/2020 09:41 pm [facility] [place] 06-28-2020 Consent [id number]:1 27 [facility] Postoperative Documentson Postoperative Documents [id number]:1 27 [facility] [place] 06-27-2020 Consent [id number]:12 7 [facility] Consent for Anesthesiaon Consent for Anesthesia [id number]#1.00CD:12 7 [facility] Consent for Procedure/Surger yon 06-27-2020 Consent for Procedure/Surgery [id number]#1.00CD:12 7 [facility] Discharge Instructionson Discharge Instructions [id number]#1.00CD:12 7 [facility] H&P Updateon 06-27-2020 H&P Update [id number]#1.00CD:12 7 [facility] IntraOperative Documentson 0 06-27-2020 IntraOperative Documents [id number]#1.00CD:12 7 [facility] IntraOperative Documents [id number]#1.00CD:12 7 Normal [facility] Preoperative Documentson Preoperative Documents [id number]#1.00CD:12 7 Normal [facility] Consent for Treatmenton Consent for Treatment [id number]#1.00CD:12 7 Normal [facility] Inpatient Patient Summaryon 06-26-2020 Inpatient Patient Summary [address] [address] [facility] Clinical Discharge Instructions PERSON INFORMATION Name: FEMI KRAMER [facility]#:[id number] PHYSICIANS Admitting Physician: Ludivina GARDNER MD Attending Physician: Ludivina GARDNER MD PCP: GIULIANA MCKEE DO Discharge Diagnosis: Encounter for female sterilization procedure Comment: PATIENT EDUCATION INFORMATION Instructions: Post Op Patient Instructions - FT (Custom) Medication Leaflets: Follow up: With: Address: When: Ludivina GARDNER [address] [place] [address] In 2 weeks 07/10/2020 Comments: already scheduled Type Location Start [facility] 07/09/2020 10:30 AM 07/09/2020 11:00 AM Confirmed MEDICATION LIST New Medications [employer] [address] [place] [address], [phone] acetaminophen-oxycodone (Percocet 325 mg-5 mg Tab) 1 Tablets By Mouth every 6 hours as needed Pain 4-7. Refills: 0. docusate (Colace 100 mg Cap) 1 Capsules By Mouth 2 times a day. Take to avoid constipation. Refills: 0. ibuprofen (ibuprofen 600 mg Tab) 1 Tablets By Mouth every 6 hours as needed Pain 1-3. Refills: 0. Medications to Continue with No Changes Other Medications acetaminophen (acetaminophen 325 mg Tab) 1 Tablets By Mouth every 4 hours as needed Pain/Fever. Comment: Normal [facility] Main OR PACU I [facility] Main OR PACU I Record PACU Phase I Document Type FT Summary Primary Physician: Ludivina GARDNER MD Finalized Date/Time: 06/26/20 16:16:53 Pt. Name: FEMI KRAMER Leola Voss./Sex: 1995 Female Med Rec #: [id number] Physician: Ludivina GARDNER MD Financial #: [id number] Pt. Type: A Room/Bed: Admit/Disch: 06/26/20 11:11:26 - Institution: Case Times PACU I FT Pre-Care Text: Identifies barriers to communication and implements measures to provide psychological support Develops individualized plan of care, and ensures continuity of care Maintains patient's dignity and privacy, and maintains patient confidentiality Identifies and reports philosophical, cultural, and spiritual beliefs and values Identifies individual values and wishes concerning care Implements aseptic technique, and administers prescribed antibiotic therapy and immunizing agents as ordered Evaluates postoperative tissue perfusion Implements thermoregulation measures, and monitors body temperature Evaluates postoperative respiratory status Evaluates postoperative cardiac status Evaluates postoperative neurological status Assesses pain control, collaborated in initiating patient-controlled analgesia and implements alternative methods of pain control Verifies allergies, administers prescribed medications and solutions, evaluates response to medications Entry 1 In PACU I 06/26/20 14:30:00 Discharge from PACU 06/26/20 15:00:00 I Outcomes Met? Yes Last Modified By: Giovanna Plunkett RN 06/26/20 16:16:46 Post-Care Text: The patient demonstrates knowledge of the expected response to the operative or invasive procedure The patient's care is consistent with the individualized perioperative plan of care The patient's right to privacy is maintained The patient's value system, lifestyle, ethnicity, and culture are considered, respected, and incorporated into the perioperative plan of care The patient participates in decisions affecting his or her perioperative plan of care The patient is free from signs and symptoms of infection The patient has wound/tissue perfusion consistent with or improved from baseline levels established preoperatively The patient is at or returning to normothermia at the conclusion of the immediate postoperative period The patient's respiratory function is consistent with or improved from baseline levels established preoperatively The patient's cardiovascular status is consistent with or improved from baseline levels established preoperatively The patient's cardiovascular status is consistent with or improved from baseline levels established preoperatively The patient demonstrates and/or reports adequate pain control throughout the perioperative period The patient received appropriate medication(s), safely administered during the perioperative period Acuity Level PACU I FT Entry 1 Start Time 06/26/20 14:30:00 Stop Time 06/26/20 15:00:00 Acuity Level Acuity Level I Last Modified By: Giovanna Plunkett RN 06/26/20 16:16:52 Finalized By: Giovanna Plunkett RN Document Signatures Signed By: Giovanna Plunkett RN 06/26/20 16:16 Normal [facility] Main OR PACU II Rec[facility] Main OR PACU II Record PACU Phase II Document Type FT Summary Primary Physician: Ludivina GARDNER MD Finalized Date/Time: 06/26/20 18:39:38 Pt. Name: FEMI KRAMERO.B./Sex: 1995 Female Med Rec #: [id number] Physician: Ludivina GARDNER MD Financial #: [id number] Pt. Type: A Room/Bed: Admit/Disch: 06/26/20 11:11:26 - Institution: Case Times PACU II FT Pre-Care Text: Identifies barriers to communication and implements measures to provide psychological support and determines knowledge level Develops individualized plan of care, and ensures continuity of care Maintains patient's dignity and privacy, and maintains patient confidentiality Identifies and reports philosophical, cultural, and spiritual beliefs and values Identifies individual values and wishes concerning care administers prescribed antibiotic therapy and immunizing agents as ordered, Evaluates postoperative tissue perfusion Implements thermoregulation measures, and monitors body temperature Evaluates postoperative respiratory status Evaluates postoperative cardiac status Evaluates postoperative neurological status Assesses pain control, collaborated in initiating patient-controlled analgesia and implements alternative methods of pain control Verifies allergies, administers prescribed medications and solutions, evaluates response to medications Entry 1 In PACU II 06/26/20 15:00:00 Discharge from PACU 06/26/20 17:05:00 II Outcomes Met? Yes Last Modified By: Evangelina Juarez RN 06/26/20 18:39:36 Post-Care Text: The patient demonstrates knowledge of the expected response to the operative or invasive procedure The patient's care is consistent with the individualized perioperative plan of care The patient's right to privacy is maintained The patient's value system, lifestyle, ethnicity, and culture are considered, respected, and incorporated into the perioperative plan of care The patient participates in decisions affecting his or her perioperative plan of care. The patient is free from signs and symptoms of infection The patient has wound/tissue perfusion consistent with or improved from baseline levels established preoperatively The patient is at or returning to normothermia at the conclusion of the immediate postoperative period The patient's respiratory function is consistent with or improved from baseline levels established preoperatively The patient's cardiovascular status is consistent with or improved from baseline levels established preoperatively The patient's neurological status is consistent with or improved from baseline levels established preoperatively The patient demonstrates and/or reports adequate pain control throughout the perioperative period The patient received appropriate medication(s), safely administered during the perioperative period Finalized By: Evangelina Juarez RN Document Signatures Signed By: Evangelina Juarez RN 06/26/20 18:39 Normal [facility] Main OR Preoperative Recordo n 06-26-2020 Main OR Preoperative Record PreOp Document Type FT Summary Primary Physician: Ludivina GARDNER MD Finalized Date/Time: 06/26/20 14:11:47 Pt. Name: FEMI KRAMER/Sex: 1995 Female Med Rec #: [id number] Physician: Ludivina GARDNER MD Financial #: [id number] Pt. Type: A Room/Bed: [place] [address] Admit/Disch: 06/26/20 11:11:26 - Institution: Case Times PreOp FT Pre-Care Text: Verifies consent for planned procedure, identifies individual values and wishes concerning care, includes family members in perioperative teaching Entry 1 Patient Times. In Pre Surgery 06/26/20 11:15:00 Out Pre Surgery 06/26/20 13:39:00 Outcomes Met? Yes Last Modified By: Nazia Hyde RN 06/26/20 14:11:46 Post-Care Text: The patient participates in decisions affecting his or her perioperative plan of care Finalized By: Nazia Hyde RN Document Signatures Signed By: Nazia Hyde RN 06/26/20 14:11 Normal [facility] Monitor [facility] 06-26-2020 Monitor Record [id number]#1.00CD:1 27 Normal [facility] Operative Reporton Operative Report Patient: MÓNICA KRAMER Age: 24 years Sex: Female : 1995 Associated Diagnoses: None Author: Ludivina GARDNER MD Postoperative Information Procedure: Laparoscopic bilateral salpingectomy Date/ Time: 06/26/2020 14:36:00 Preoperative Diagnosis: Encounter for female sterilization procedure ([id number] Z30.2, Discharge, Medical). Postoperative Diagnosis: same. Performed by: Ludivina GARDNER MD. Findings: Normal appearing uterus, tubes, and ovaries bilaterally. Specimens Removed: bilateral fallopian tubes. Estimated Blood Loss: 5 ml. Complications: None. Anesthesia type: General. Description of procedure: After obtaining consent, patient taken to the OR. Once adequate anesthesia obtained, patient placed in the dorsal lithotomy position and was prepped and draped in the normal sterile fashion. A bivalved speculum was placed in the patient's vagina. Cervix visualized and appeared very large. Uterine manipulator placed for uterine manipulation during the surgery. Speculum then removed. Attention was then turned to the abdomen, where the Veress needle was placed in the umbilicus. Opening pressure was noted to be 6mmHg. Pneumoperitoneum was obtained to a pressure of 15mmHg. 5mm port then placed through umbilicus into abdomen, and intraabdominal placement confirmed with the laparoscope. Intraabdominal findings as noted above. First the right lower quadrant and then left lower quadrant 5mm ports were then placed under direct visualization. First the left fallopian tube was grasped, followed to the fimbriated end, and then then mesosalpinx was cauterized and transected almost up to the uterus. The fallopian tube was then cauterized and transected, thus amputating the left fallopian tube. Tube was removed. Likewise this process was repeated on the right side where the right fallopian tube was grasped, followed to fimbriated end, mesosalpinx cauterized and transected, and fallopian tube cauterized and transected, amputating the tube. Almost the entire length of each fallopian tube was removed. Following removal, hemostasis noted. All instruments then removed. Pneumoperitoneum was allowed to escape. With aid of anesthesia, she was given deep breaths along with simultaneous abdominal pressure to expel as much gas as possible. Ports then removed. Skin closed with skin glue. Uterine manipulator and tenaculum also removed. Patient tolerated procedure well and was taken to the recovery room in stable condition. Sponge, lap, and instrument counts were correct x2. Ludivina Gardner MD [facility] Comment on above: Result Comment: Elec tronically Signed By: Ludivina GARDNER MD\.br\Date and Time Signed: 06/26/20 14:40 EST Outpatient Surgery Discharge Instructionon 06-26-2020 Outpatient Surgery Discharge Instruction [place] [id number] Patient Discharge Instructions PERSON INFORMATION Name: FEMI KRAMER Date of : 1995 Current Date: 06/26/2020 15:02:14 PHYSICIANS Admitting Physician: Ludivina GARDNER MD Discharge Diagnosis: Encounter for female sterilization procedure FEMI KRAMER has been given the following list of follow-up instructions, prescriptions, and patient education materials: PATIENT FOLLOW-UP INFORMATION Diet: Regular Discharge Activity: Ambulate as tolerated, Arrange for a responsible adult supervision for 24 hours, Expect mild pain, Expect minimal amount of drainage and/or bleeding Call Your Doctor For: Persistent or heavy bleeding, Temperature above 101.5 degrees, Redness, swelling, or pus at operative site, Severe pain at the operative site, Persistent vomiting Additional Instructions: No driving x3days, no strenuous activity or lifting >20# x2wk, nothing in vagina x2wk. Remove skin glue in 1wk, rinse with hydrogen peroxide 2x/day if needed. Showers only, no baths until incisions mostly healed. Walking/stairs fine today in moderation. IF UNABLE TO CONTACT YOUR PHYSICIAN AND YOU FEEL IT IS AN EMERGENCY, GO TO THE NEAREST EMERGENCY ROOM OR CALL [address] [facility] R, have received the attached patient education materials/instructions and have verbalized understanding: May we do a follow up call? Yes No I was present when discharge instructions were given Patient Signature ___ Date Clinican/Nurse Signature Date Follow up: With: Address: When: Ludivina GARDNER [address] [place] [address] In 2 weeks 07/10/2020 Comments: already scheduled Type Location Start [facility] 07/09/2020 10:30 AM 07/09/2020 11:00 AM Confirmed Pharmacy Information: Other: [facility] You may receive a survey from Oliver Mathur asking you to rate your care experience. Your feedback is important and will help us understand what we do well and how we can improve the quality of care we provide to you, your loved ones and our community. It?s an honor to serve you. Thank you for choosing [facility] HERE ARE THE MEDICATION CHANGES THAT OCCURRED DURING YOUR HOSPITAL STAY New Medications [facility] [address] [facility] [place] [address], [phone] acetaminophen-oxycodone (Percocet 325 mg-5 mg Tab) 1 Tablets By Mouth every 6 hours as needed Pain 4-7. Refills: 0. docusate (Colace 100 mg Cap) 1 Capsules By Mouth 2 times a day. Take to avoid constipation. Refills: 0. ibuprofen (ibuprofen 600 mg Tab) 1 Tablets By Mouth every 6 hours as needed Pain 1-3. Refills: 0. Medications to Continue with No Changes Other Medications acetaminophen (acetaminophen 325 mg Tab) 1 Tablets By Mouth every 4 hours as needed Pain/Fever. PATIENT EDUCATION INFORMATION Instructions: Normal [facility] Patient Education - Texton 0 06-26-2020 Patient Education - Text Normal [facility] Progress Note-Physicianon Progress Note-Physician Patient: FEMI KRAMER Age: 24 years Sex: Female : 1995 Associated Diagnoses: None Author: Wilfred Milligan Jr., DO Postoperative Information Post Operative Note: Post Anesthesia Care Unit. Anesthetic utilized: General. Health Status Allergies: Allergic Reactions (Selected) No Known Allergies Problem list: All Problems Supervision of normal in third trimester / SNOMED CT 736942130 / Confirmed Encounter for sterilization / SNOMED CT 166979944 / Confirmed Resolved: Depression during , antepartum / SNOMED CT 2417619383 Resolved: Genital herpes simplex virus (HSV) infection in mother affecting / SNOMED CT 8820239801 Resolved: / SNOMED CT 728046751 Resolved: / SNOMED CT 814564695 need for PA Canceled: Supervision of normal in second trimester / SNOMED CT 413824717 Physical Examination Vital Signs 06/26/2020 15:05 EST Temperature Oral 36.4 DegC Heart Rate Monitored 51 bpm LOW Respiratory Rate 16 br/min Systolic Blood Pressure 122 mmHg Diastolic Blood Pressure 76 mmHg Blood Pressure Location Right arm Mean Arterial Pressure, Monitered 91 mmHg SpO2 99 % BP/Pulse Patient Position Supine 06/26/2020 14:30 EST Temperature Axillary 36.3 DegC Heart Rate Monitored 50 bpm LOW Respiratory Rate Monitored 21 br/min Systolic Blood Pressure 106 mmHg Diastolic Blood Pressure 62 mmHg Blood Pressure Location Left arm SpO2 98 % Pain assessment: Pain Assessment 06/26/2020 15:05 EST Preliminary Pain Scale 0 , Controlled. General: Alert and oriented, No acute distress, No nausea. Adequate hydration.. Respiratory: Adequate air exchange.. Cardiovascular: stable. Neurologic: Normal sensory. Review / Management Condition: Stable. Assessment Anesthetic outcome No anesthetic complications noted. Plan Transfer/ Discharge: Condition stable. Normal [facility] Comment on above: Result Comment: Elec tronically Signed By: Wilfred Milligan Jr., DO\.br\Date and Time Signed: 06/26/20 15:11 EST Progress Note-Physician Patient: FEMI KRAMER Age: 24 years Sex: Female : 1995 Associated Diagnoses: None Author: Wilfred Milligan Jr., DO Preoperative Information Time patient last ate or drank:=== (NPO since midnight) Anesthesia history: Patient History: No prior problems with anesthesia.. Re-eval prior to induction: Inital eval reviewed: No significant interval change, Surgical H&P documented and on chart. Surgical consent signed and on chart.. Anesthesia results Review of Systems Cardiovascular: Negative except as documented in history of present illness. Respiratory: Negative. Neurologic: Negative. Health Status Allergies: Allergic Reactions (Selected) No Known Allergies, Allergies (1) Active Reaction No Known Allergies None Documented Current medications: (Selected) Inpatient Medications Ordered HYDROmorphone 1 mg/mL injectable solution: 0.4 mg = 0.4 mL, Injection, IV Push, q4min PRN Pain for 5 dose(s), Stop date Limited # of times, Routine, Start date 06/26/20 12:46:00 EST Lactated Ringers IV Cher 1000 mL 1,000 mL: 1,000 mL, IV, 100 mL/hr, Routine, Start date 06/26/20 12:46:00 EST, 10 hour(s), Total volume (mL): 1,000, 70.6 kg, 1.78, m2 Lactated Ringers IV Cher 1000 mL 1,000 mL: 1,000 mL, IV, 150 mL/hr, Routine, Start date 06/26/20 11:15:00 EST, 6.7 hour(s), Total volume (mL): 1,000, 70.6 kg, 1.78, m2 Phenergan 25 mg/mL Injection: 12.5 mg = 0.5 mL, Injection, IV Push, q2min PRN Other (see comment) for 2 dose(s), Stop date Limited # of times, Routine, Start date 06/26/20 12:46:00 EST Documented Medications Documented acetaminophen 325 mg Tab: 325 mg = 1 tab(s), Oral, q4hr, PRN Pain/Fever, Refills(s) 0 Histories Past Medical History: Resolved (265421956): Onset on 08/30/2019 at 24 years. Resolved on 05/29/2020 at 24 years. 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 Resolved on 04/12/2017 at 21 years. Genital herpes simplex virus (HSV) infection in mother affecting (6977779540): Resolved. Depression during , antepartum (1669891744): Resolved. Family History: Hypertension Grandparent Diabetes mellitus type 1 Grandparent Procedure history: Tonsillectomy (401715638). 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 Physical Examination Airway: Mallampati classification: II (soft palate, fauces, uvula visible). Respiratory: Lungs are clear to auscultation. Cardiovascular: Regular rhythm. Review / Management Results review: Lab results 06/19/2020 9:36 EST SARS-CoV-2, TASNEEM Not Detected 06/18/2020 7:43 EST WBC 5.0 E9/L RBC 4.8 E12/L Hgb 15.0 gm/dL Hct 45.2 % MCV 93.3 fL MCH 31.0 pg MCHC 33.2 gm/dL RDW 11.8 % Platelet 184.0 E9/L MPV 8.7 fL Beta hCG Ql Negative . Plan [place] [employer]hesi[employer] (ASA) physical status classification: Class II. Anesthetic Preoperative Plan Anesthesia: General. . Anesthetic plan, risks, benefits, and alternatives discussed with the patient and/or family. Patient verbalized understanding. Adverse reactions, complications, and alternatives discujssed. Consent signed and on chart.. [facility] Comment on above: Result Comment: Elec tronically Signed By: Wilfred Milligan Jr., DO.portillo\Date and Time Signed: 06/26/20 12:48 EST Nursing Assessmenton Nursing Assessment [id number]:12 7 [facility] Coding Summary.on 06-22-2020 Coding Summary. CODING DATE: FINAL [facility] STATUS: Home (Routine DC) PAYOR: Medicaid [facility] DESCRIPTION 0388 LEVEL III MICROBIOLOGY TESTS ADMIT DX: REASON FOR VISIT DX: Z01.818 Encounter for other preprocedural examination FINAL DX: PRINCIPAL: Z01.818 Encounter for other preprocedural examination SECONDARY: Z20.828 Contact with and (suspected) exposure to other viral communicable diseases PYMT PROC EAPG STAT DESCRIPTION DOCTOR NAME DATE NOTE: The code number assigned matches the documented diagnosis and / or procedure in the patient's chart. However, the narrative phrase printed from the coding software may appear abbreviated, or result in slightly different terminology. Coded By: Jackie Mccartney Date Saved: 06/22/2020 02:45 pm [facility] Formson 06-20-2020 Forms [id number]:12 7 [facility] Priority Order-Wilmar 2019 Priority Order-STAT Comment Invalid Interpretation Code [facility] Comment on above: Result Comment: Rece ived Performed at: [facility] [address] [facility], [place] [id number] MD Gene Rae Performed By: #### S ARS-CoV-2, TASNEEM, [id number] #### [facility] [address] [place] [address] SARS-CoV-2, NAAon 06-20-2020 SARS-CoV-2 (COVID-19) RNA TASNEEM+probe Ql (Resp) Not detected Invalid Interpretation Code Not Detected [facility] Comment on above: Result Comment: This nucleic acid amplification test was developed and its performance characteristics determined by [employer]. Nucleic acid amplification tests include PCR and TMA. This test has not been FDA cleared or approved. This test has been authorized by FDA under an Emergency Use Authorization (EUA). This test is only authorized for the duration of time the declaration that circumstances exist justifying the authorization of the emergency use of in vitro diagnostic tests for detection of SARS-CoV-2 virus and/or diagnosis of COVID-19 infection under section 564(b)(1) of the Act, 21 U.S.C. 360bbb-3(b) (1), unless the authorization is terminated or revoked sooner. When diagnostic testing is negative, the possibility of a false negative result should be considered in the context of a patient's recent exposures and the presence of clinical signs and symptoms consistent with COVID-19. An individual without symptoms of COVID-19 and who is not shedding SARS-CoV-2 virus would expect to have a negative (not detected) result in this assay. Performed at: [facility] [address] [facility] [place] [id number] MD Gene Rae Performed By: #### S ARS-CoV-2, TASNEEM, [id number] #### [facility] [address] [place] [address] Coding Summary.on 06-19-2020 Coding Summary. CODING DATE: 020 FINAL [facility] STATUS: Home (Routine DC) PAYOR: Medicaid EAPG DESCRIPTION 0402 BASIC CHEMISTRY TESTS 0408 LEVEL I HEMATOLOGY TESTS ADMIT DX: REASON FOR VISIT DX: Z01.812 Encounter for preprocedural laboratory examination FINAL DX: PRINCIPAL: Z01.812 Encounter for preprocedural laboratory examination SECONDARY: PYMT PROC EAPG STAT DESCRIPTION DOCTOR NAME DATE NOTE: The code number assigned matches the documented diagnosis and / or procedure in the patient's chart. However, the narrative phrase printed from the coding software may appear abbreviated, or result in slightly different terminology. Coded By: Falguni Baez CphT Date Saved: 06/19/2020 04:53 pm Normal [facility] B hCG [place] 06-18-2020 Beta hCG Ql Negative Normal [facility] Comment on above: Order Comment: unles s history of hysterectomy Performed By: #### 2 [id number] #### [facility] [address] [place] [address] CBC w/Indiceson 06-18-2020 Erythrocyte distribution width (RBC) [Ratio] 11.8 % Normal 10.9-14.2 [facility] Comment on above: Performed By: #### 2 [id number], [id number] #### [facility] [address] [place] [address] Hematocrit (Bld) [Volume fraction] 45.2 % Normal 34.0-46.0 [facility] Comment on above: Performed By: #### 2 [id number], [id number] #### [facility] [address] [place] [address] Hemoglobin (Bld) [Mass/Vol] 15.0 g/dL Normal 12.0-16.0 [facility] Comment on above: Performed By: #### 2 [id number], [id number] #### [facility] [address] [place] [address] MCH (RBC) [Entitic mass] 31.0 pg Normal 27.0-34.0 [facility] Comment on above: Performed By: #### 2 [id number], [id number] #### [facility] [address] [place] [address] MCHC (RBC) [Mass/Vol] 33.2 g/dL Normal 31.4-36.0 [facility] Comment on above: Performed By: #### 2 [id number], [id number] #### [facility] [address] [place] [address] MCV (RBC) [Entitic vol] 93.3 fL Normal 80.0-100.0 [facility] Comment on above: Performed By: #### 2 [id number], [id number] #### [facility] [address] [place] [address] Platelet mean volume (Bld) [Entitic vol] 8.7 fL Normal 6.4-10.8 [facility] Comment on above: Performed By: #### 2 [id number], [id number] #### [facility] [address] [place] [address] Platelets (Bld) [#/Vol] 184.0 E9/L Normal 150.0-500.0 [facility] Comment on above: Performed By: #### 2 [id number], [id number] #### [facility] [address] [place] [address] RBC (Bld) [#/Vol] 4.8 E12/L Normal 4.3-5.9 [facility] Comment on above: Performed By: #### 2 [id number], [id number] #### [facility] [address] [place] [address] WBC corrected for nucl RBC Auto (Bld) [#/Vol] 5.0 E9/L Normal 4.0-11.0 [facility] Comment on above: Performed By: #### 2 [id number], [id number] #### [facility] [address] [place] [address] Consent for Treatmenton 05-22 Consent for Treatment [id number]:12 7 Normal [facility] H&P Updateon 06-18-2020 H&P Update [id number]#1.00CD:1 27 Normal [facility] Pre-Certification Formon Pre-Certification Form [id number]#1.00CD:12 7 Normal [facility] Consent for Procedure/Surger yon 06-06-2020 Consent for Procedure/Surgery [id number]#1.00CD:12 7 Normal [facility] Physician Orderon 06-06-2020 Physician Order [id number]#1.00CD:12 7 Normal [facility] Physician Orderon 06-05-2020 Physician Order [id number]#1.00CD:12 7 Normal [facility] Coding Summary.on 06-02-2020 Coding Summary. CODING DATE: 020 FINAL [facility] STATUS: Home (Routine DC) PAYOR: Medicaid GROUPERS: 807 MS-DRG VAGINAL DELIVERY WITHOUT STERILIZATION OR D&C WITHOUT CC/GROUP HOME Low Trim 0 High Trim 999 560 APR-DRG VAGINAL DELIVERY Severity of Illness Moderate Risk of Mortality Minor DIAGNOSES: ADMIT DX: O99.344 Other mental disorders complicating childbirth REASON FOR VISIT DX: FINAL DX: PRINCIPAL: O69.81X0 Y Labor and delivery complicated by cord around neck, without compression, not applicable or unspecified SECONDARY: Z37.0 1 Single live O99.344 Y Other mental disorders complicating childbirth F32.9 Y Major depressive disorder, single episode, unspecified Z3A.39 1 39 weeks gestation of Z86.19 1 Personal history of other infectious and parasitic diseases PROCEDURES: DOCTOR NAME DATE Delivery of Products of Ludivina GARDNER MD 05/29/2020 Conception, External Approach [id number] Introduction of Hernando Matos JR, DO 05/29/2020 Anti-inflammatory into Spinal Canal, Percutaneous Approach [id number] Introduction of Anesthetic Hernando Matos JR, DO 05/29/2020 Agent into Spinal Canal, Percutaneous Approach [id number] Drainage of Amniotic Fluid, Ludivina GARDNER MD 05/29/2020 Therapeutic from Products of Conception, Via Natural or Artificial Opening NOTE: The code number assigned matches the documented diagnosis and / or procedure in the patient's chart. However, the narrative phrase printed from the coding software may appear abbreviated, or result in slightly different terminology. Coded By: Jackie Mccartney Date Saved: 06/02/2020 05:00 pm Normal [facility] Discharge Instructionson Discharge Instructions [id number]:1 27 Normal [facility] Inpatient Clinical Summaryon 05-31-2020 Inpatient Clinical Summary [address] [address] Clinical Summary Person Information Name: FEMI KRAMER [place] Age: 24 Years : 1995 Sex: Female PCP: GIULIANA MCKEE DO Marital Status: Single Race: White Ethnicity: Non- or Language: Azeri Visit Id: Visit Reason: Speciality: Acuity: 2 PP Enc Type: Inpatient Med Service: Obstetrics Arrival: 05/29/2020 06:52:16 Discharge: 05/31/2020 13:15:00 Dispo Type: Home (Routine DC) Address: [address] [place] [id number] Provider Notes: Patient: FEMI KRAMER Age: 24 years Sex: Female : 1995 Associated Diagnoses: None Author: TAWANDA SARMIENTO, Ludivina Phillip Basic Information 24 yo PPD#2 s/p , doing well. Ambulating, voiding, jon reg diet, pain well controlled with po pain meds. Bottle feeding going well. Desires BTL for PP contraception. Lochia normal. Admit date: 05/29/20 Discharge date: 05/31/20 Condition: stable Discharge diagnoses: 1. TIUP 2. Depression 3. h/o HSV 4. Desires permanent sterilization Procedures: 1. 2. Epidural Consultations: none Disposition: home Discharge diet: regular Discharge meds: ibuprofen OTC prn Hospital course: Patient admitted for scheduled IOL. Progressed to complete and went on to deliver without complication. Please see delivery note for further details about delivery. On PPD#2 pt was ambulating, voiding, jon reg diet, pain well controlled, and bottle feeding. Ready for discharge. Pt would like bilat salpingectomy for PP contraception. Discharge restrictions: No lifting >20# for 4 wks, nothing in vagina x4 wks, no strenuous activity x4 wks. Call if Temp >100.4, uncontrolled pain or N/V, bleeding soaking more than 1 pad/hr. Review of Systems Constitutional: Negative. Eye: Negative. Ear/Nose/Mouth/Throat: Negative. Respiratory: Negative. Cardiovascular: Negative. Breast: Negative. Gastrointestinal: Negative. Genitourinary: Negative. Gynecologic: bleeding. Hematology/Lymphatics: Negative. Endocrine: Negative. Immunologic: Negative. Musculoskeletal: Negative. Integumentary: Negative. Neurologic: Negative. Psychiatric: Negative. All other systems are negative Health Status Allergies: Allergic Reactions (Selected) No Known Allergies Current medications: (Selected) Inpatient Medications Ordered Lanolin: 1 ubaldo, Ointment, Topical, q2hr PRN Dry skin, Routine, Start date 05/29/20 15:37:00 EST Multivitamins with Folic Acid 1 mg Tab: 1 tab(s), Tab, Oral, qAM, Routine, Start date 05/30/20 7:30:00 EST acetaminophen 325 mg Tab: 975 mg = 3 tab(s), Tab, Oral, q8hr PRN Headache, Routine, Start date 05/29/20 15:37:00 EST acetaminophen-codeine 300 mg-30 mg Tab: 1 tab(s), Tab, Oral, q6hr PRN Pain 1-3, Routine, Start date 05/29/20 15:37:00 EST acetaminophen-codeine 300 mg-30 mg Tab: 2 tab(s), Tab, Oral, q6hr PRN Pain 4-7, Routine, Start date 05/29/20 15:37:00 EST benzocaine-menthol 20%-0.5% topical spray: 1 spray(s), [place], Topical, q4hr PRN Pain, Routine, Start date 05/29/20 15:37:00 EST calcium carbonate 500 mg Chew Tab: 500 mg = 1 tab(s), Tab-Chew, Oral, q6hr PRN Control of stomach acid, Routine, Start date 05/29/20 15:37:00 EST docusate sodium 100 mg Cap: 100 mg = 1 cap(s), Cap, Oral, BID, Routine, Start date 05/29/20 21:00:00 EST hydrocortisone 2.5% Rectal Crm w/Appl: 1 ubaldo, Cream-Ubaldo, Rectal, QID PRN Other (see comment), Routine, Start date 05/29/20 15:37:00 EST hydrocortisone 25 mg Supp: 25 mg = 1 supp, Supp, Rectal, BID PRN Other (see comment), Routine, Start date 05/29/20 15:37:00 EST ibuprofen 600 mg Tab: 600 mg = 1 tab(s), Tab, Oral, q6hr PRN Other (see comment), Routine, Start date 05/29/20 15:37:00 EST simethicone 80 mg Chew Tab: 80 mg = 1 tab(s), Tab-Chew, Oral, QID PRN Gas, Routine, Start date 05/29/20 15:37:00 EST witch jose rectal 50% pad: 1 ubaldo, Pad, Topical, q4hr PRN Other (see comment), Routine, Start date 05/29/20 15:37:00 EST zolpidem 5 mg Tab: 5 mg = 1 tab(s), Tab, Oral, Bedtime PRN Sleep for 7 day(s), Stop date 06/05/20 15:36:00 EST, Routine, Start date 05/29/20 15:37:00 EST Prescriptions Prescribed PNV oral tablet: 1 tab(s), Oral, Daily, 90 tab(s), Refill(s) 4, ANY VITAMIN, [facility], 163, cm, 11/07/19 8:38:00 EDT, Height/Length Measured, 71.9, kg, 11/07/19 8:38:00 EDT, Weight Measured valacyclovir 500 mg Tab: 500 mg = 1 tab(s), Oral, q12hr, # 30 tab(s), Refills(s) 1, Pharmacy: [facility], 163, cm, 04/25/20 11:47:00 EST, Height/Length Dosing, 78.1, kg, 04/25/20 11:47:00 EST, Weight Dosing Physical Examination Vital Signs 05/30/2020 20:16 EST Temperature Oral 36.5 DegC Heart Rate Monitored 67 bpm Systolic Blood Pressure 116 mmHg Diastolic Blood Pressure 68 mmHg Mean (more content not included)... Normal [facility] Inpatient Patient Summaryon 05-31-2020 Inpatient Patient Summary [address] [address] Patient Discharge Instructions PERSON INFORMATION Name: FEMI KRAMER Date of : 1995 Current Date: 05/31/2020 13:26:12 PHYSICIANS Admitting Physician: Ludivina GARDNER MD Primary Care Physician: GIULIANA MCKEE DO PCP Comment: Discharge Diagnosis: Condition at Discharge: Stable FEMI KRAMER has been given the following list of follow-up instructions, prescriptions, and patient education materials: PATIENT FOLLOW-UP INFORMATION Diet: Regular Activity: Wound Care Instructions: Remove Your Dressing IN: Days Call Your Doctor For: IF UNABLE TO CONTACT YOUR PHYSICIAN AND YOU FEEL IT IS AN EMERGENCY, GO TO THE NEAREST EMERGENCY ROOM OR CALL 911 Home Treatment: Devices/Equipment: Special Services: Additional Instructions: Physician to provide the following pending test results: None Follow up: In the event that this physician does not participate in your insurance network, please consult with your insurance company to find a nearby participating provider. Type Location Start [facility] 07/09/2020 10:30 AM 07/09/2020 11:00 AM Confirmed Comment: INIA SUMMER R, have received the attached patient education materials/instructions and have verbalized understanding. Patient Signature ____ Date Clinican/Nurse Signature Date MEDICATION LIST Medications to Continue with No Changes Other Medications multivitamin, (PNV oral tablet) 1 Tablets By Mouth every day. ANY VITAMIN. Refills: 4. Last Dose: Next Dose: valacyclovir (valacyclovir 500 mg Tab) 1 Tablets By Mouth every 12 hours. Refills: 1. Last Dose: Next Dose: Pharmacy Information: Other: [facility] PATIENT EDUCATION INFORMATION Instructions: Medication Leaflets: Thank you for choosing [facility] Normal [facility] Progress Note-Physicianon Progress Note-Physician Patient: FEMI KRAMER Age: 24 years Sex: Female : 1995 Associated Diagnoses: None Author: Hernando Matos JR, DO Postoperative Information Post Operative Note: L/D EPIDURAL POST DELIVERY NOTE.. Anesthetic utilized: Regional: EPCA for L/D. Health Status Allergies: Allergic Reactions (Selected) No Known Allergies Current medications: (Selected) Inpatient Medications Ordered Lanolin: 1 ubaldo, Ointment, Topical, q2hr PRN Dry skin, Routine, Start date 05/29/20 15:37:00 EST Multivitamins with Folic Acid 1 mg Tab: 1 tab(s), Tab, Oral, qAM, Routine, Start date 05/30/20 7:30:00 EST acetaminophen 325 mg Tab: 975 mg = 3 tab(s), Tab, Oral, q8hr PRN Headache, Routine, Start date 05/29/20 15:37:00 EST acetaminophen-codeine 300 mg-30 mg Tab: 1 tab(s), Tab, Oral, q6hr PRN Pain 1-3, Routine, Start date 05/29/20 15:37:00 EST acetaminophen-codeine 300 mg-30 mg Tab: 2 tab(s), Tab, Oral, q6hr PRN Pain 4-7, Routine, Start date 05/29/20 15:37:00 EST benzocaine-menthol 20%-0.5% topical spray: 1 spray(s), [place], Topical, q4hr PRN Pain, Routine, Start date 05/29/20 15:37:00 EST calcium carbonate 500 mg Chew Tab: 500 mg = 1 tab(s), Tab-Chew, Oral, q6hr PRN Control of stomach acid, Routine, Start date 05/29/20 15:37:00 EST docusate sodium 100 mg Cap: 100 mg = 1 cap(s), Cap, Oral, BID, Routine, Start date 05/29/20 21:00:00 EST hydrocortisone 2.5% Rectal Crm w/Appl: 1 ubaldo, Cream-Ubaldo, Rectal, QID PRN Other (see comment), Routine, Start date 05/29/20 15:37:00 EST hydrocortisone 25 mg Supp: 25 mg = 1 supp, Supp, Rectal, BID PRN Other (see comment), Routine, Start date 05/29/20 15:37:00 EST ibuprofen 600 mg Tab: 600 mg = 1 tab(s), Tab, Oral, q6hr PRN Other (see comment), Routine, Start date 05/29/20 15:37:00 EST simethicone 80 mg Chew Tab: 80 mg = 1 tab(s), Tab-Chew, Oral, QID PRN Gas, Routine, Start date 05/29/20 15:37:00 EST witch jose rectal 50% pad: 1 ubaldo, Pad, Topical, q4hr PRN Other (see comment), Routine, Start date 05/29/20 15:37:00 EST zolpidem 5 mg Tab: 5 mg = 1 tab(s), Tab, Oral, Bedtime PRN Sleep for 7 day(s), Stop date 06/05/20 15:36:00 EST, Routine, Start date 05/29/20 15:37:00 EST Prescriptions Prescribed PNV oral tablet: 1 tab(s), Oral, Daily, 90 tab(s), Refill(s) 4, ANY VITAMIN, [employer] [employer], 163, cm, 11/07/19 8:38:00 EDT, Height/Length Measured, 71.9, kg, 11/07/19 8:38:00 EDT, Weight Measured valacyclovir 500 mg Tab: 500 mg = 1 tab(s), Oral, q12hr, # 30 tab(s), Refills(s) 1, Pharmacy: [facility], 163, cm, 11/05/20 11:47:00 EST, Height/Length Dosing, 78.1, kg, 04/25/20 11:47:00 EST, Weight Dosing Problem list: All Problems Supervision of normal in third trimester / SNOMED CT 272955234 / Confirmed Depression during , antepartum / SNOMED CT 2651992815 / Confirmed Genital herpes simplex virus (HSV) infection in mother affecting / SNOMED CT 3008276624 / Confirmed Resolved: / SNOMED CT 612669509 Resolved: / SNOMED CT 333647764 Canceled: Supervision of normal in second trimester / SNOMED CT 065947523 Physical Examination VSS, Epidural catheter removed intact, Lumbar area site nontender, no erythema Intake and Output Pt. denies significant n/v, and is tolerating p.o. Vital Signs (last 24 hrs) Last Charted Temp Oral 36.5 DegC (MAY 30:) SBP 116 mmHg (MAY 30:) DBP 68 mmHg (MAY 30:) SpO2 98 % (MAY 30) Pain assessment: Pain Assessment 05/31/2020 0:50 EST Pain Symptoms Self Report Yes, able to self report Primary Pain Location OB Uterine Primary Pain Laterality Bilateral Primary Pain Radiation No Primary Pain Quality Cramping Patient Preferred Pain Tool Numeric rating Numeric Pain Scale 4 Numeric Pain Score 4 Primary Pain Interventions Medications 05/30/2020 20:16 EST Pain Symptoms Self Report No, able to self report 05/30/2020 7:49 EST Pain Symptoms Self Report No, able to self report Numeric Pain Scale 0 = No pain Numeric Pain Score 0 05/30/2020 6:15 EST Numeric Pain Scale 0 = No pain Numeric Pain Score 0 05/30/2020 5:15 EST Numeric Pain Scale 0 = No pain Numeric Pain Score 0 05/30/2020 3:15 EST Numeric Pain Scale 0 = No pain Numeric Pain Score 0 05/30/2020 1:37 EST Numeric Pain Scale 0 = No pain Numeric Pain Score 0 . Respiratory: Adequate air exchange with voodoo of preoperative function.. Cardiovascular: Cardiovascular function is stable and has returned to preoperative levels.. Neurologic: Pt. has returned to preoperative baseline.. Assessment Anesthetic outcome No anesthetic complications noted. Plan Transfer/ Discharge: Patient can be discharged from anesthesia care. Condition good. Normal [facility] Comment on above: Result Comment: Elec tronically Signed By: Hernando Matos JR, DO\.br\Date and Time Signed: 05/31/20 09:12 EST Progress Note-Physician Patient: FEMI KRAMER Age: 24 years Sex: Female : 1995 Associated Diagnoses: None Author: Hernando Matos JR, DO Postoperative Information Post Operative Note: L/D EPIDURAL POST DELIVERY NOTE.. Anesthetic utilized: Regional: EPCA for L/D. Health Status Allergies: Allergic Reactions (Selected) No Known Allergies Current medications: (Selected) Inpatient Medications Ordered D5LR 1000 mL Soln-IV 1,000 mL: 1,000 mL, IV, 125 mL/hr, Routine, Start date 05/29/20 7:14:00 EST, 8 hour(s), Total volume (mL): 1,000, 78.6 kg, May saline lock IV if patient desires mobility, 1.89, m2 Epidural Bag Ropivacaine Fentanyl 200 mL: 200 mL, Epidural, 10 mL/hr, for 48 hour(s), Stop date 05/31/20 9:52:00 EST, Routine, Start date 05/29/20 9:53:00 EST, 20 hour(s), Total volume (mL): 200, 76.8 kg, 1.86, m2 Lactated Ringers IV Cher 1000 mL 1,000 mL: 1,000 mL, IV, 125 mL/hr, Routine, Start date 05/29/20 7:14:00 EST, 8 hour(s), Total volume (mL): 1,000, 78.6 kg, May saline lock IV if patient desires mobility, 1.89, m2 Lactated Ringers IV Cher 1000 mL 1,000 mL: 1,000 mL, IV, 125 mL/hr, Routine, Start date 05/29/20 9:53:00 EST, 8 hour(s), Total volume (mL): 1,000, 76.8 kg, 1.86, m2 Lactated Ringers IV Cher 1000 mL 1,000 mL: 1,000 mL, IV, Bolus, Other (see comment) for 2 dose(s), Stop date 05/31/20 9:52:00 EST, Routine, Start date 05/29/20 9:53:00 EST, Total volume (mL): 1,000, 76.8 kg, 1.86, m2 Zofran 4 mg/2 mL Injection: 4 mg = 2 mL, Injection, IV Push, q4hr PRN Itching, Routine, Start date 05/29/20 9:53:00 EST diphenhydrAMINE 50 mg/mL Inj: 25 mg = 0.5 mL, Injection, IV Push, q4hr PRN Itching, Routine, Start date 05/29/20 9:53:00 EST ePHEDrine 50 mg/mL Inj: 10 mg = 0.2 mL, Injection, IV Push, Once PRN Other (see comment), Routine, Start date 05/29/20 9:53:00 EST fentaNYL 50 mcg/mL Inj 2 mL: 100 microgram = 2 mL, Injection, Epidural, Once PRN Other (see comment), Routine, Start date 05/29/20 9:53:00 EST naloxone 1 mg/mL Soln: 2 mg = 2 mL, Injection, IV Push, Once PRN Other (see comment), Routine, Start date 05/29/20 9:53:00 EST ondansetron 4 mg/2 mL Inj: 4 mg = 2 mL, Injection, IV Push, q4hr PRN Nausea, Routine, Start date 05/29/20 7:14:00 EST oxytocin additive 30 unit(s) [1 munit/min] + Dextrose 5% in Lactated Ringers Premix 500 mL: 500 mL, IV, 1 mL/hr, Routine, Start date 05/29/20 7:14:00 EST, 500 hour(s), Total volume (mL): 500, Titrate per protocol, 78.6 kg, 1.89, m2 ropivacaine 0.2% injectable solution 10 mL: 18 mg, 9 mL, Injection, Epidural, Once PRN Other (see comment), Routine, Start date 05/29/20 9:53:00 EST Prescriptions Prescribed PNV oral tablet: 1 tab(s), Oral, Daily, 90 tab(s), Refill(s) 4, ANY VITAMIN, [employer] 320, 163, cm, 11/07/19 8:38:00 EDT, Height/Length Measured, 71.9, kg, 11/07/19 8:38:00 EDT, Weight Measured valacyclovir 500 mg Tab: 500 mg = 1 tab(s), Oral, q12hr, # 30 tab(s), Refills(s) 1, Pharmacy: [facility], 163, cm, 04/25/20 11:47:00 EST, Height/Length Dosing, 78.1, kg, 04/25/20 11:47:00 EST, Weight Dosing Problem list: All Problems Supervision of normal in third trimester / SNOMED CT 062554457 / Confirmed Depression during , antepartum / SNOMED CT 5072382081 / Confirmed Genital herpes simplex virus (HSV) infection in mother affecting / SNOMED CT 4601378808 / Confirmed / SNOMED CT 173092707 / Confirmed Resolved: / SNOMED CT 198226472 Canceled: Supervision of normal in second trimester / SNOMED CT 497856558 Physical Examination VSS, Epidural catheter removed intact, Lumbar area site nontender, no erythema Intake and Output Pt. denies significant n/v, and is tolerating p.o. Vital Signs (last 24 hrs) Last Charted Temp Oral 36.6 DegC (MAY 29 07:30) SBP 133 mmHg (MAY 29:30) DBP 82 mmHg (MAY 29:) Weight 76.6 kg (MAY 29:40) Height 162.5 cm (MAY 29:40) BMI 29.01 (MAY 29:40) Pain assessment: Pain Assessment 05/29/2020 7:40 EST Numeric Pain Scale 0 = No pain Numeric Pain Score 0 . Respiratory: Adequate air exchange with voodoo of preoperative function.. Cardiovascular: Cardiovascular function is stable and has returned to preoperative levels.. Neurologic: Pt. has returned to preoperative baseline.. Assessment Anesthetic outcome No anesthetic complications noted. Plan Transfer/ Discharge: Patient can be discharged from anesthesia care. Condition good. Normal [facility] Comment on above: Result Comment: Elec tronically Signed By: Hernando Matos JR, DO CBC w/Indiceson 05-30-2020 Erythrocyte distribution width (RBC) [Ratio] 12.3 % Normal 10.9-14.2 [facility] Comment on above: Performed By: #### 2 [id number] #### [facility] [address] [place] [address] Hematocrit (Bld) [Volume fraction] 38.9 % Normal 34.0-46.0 [facility] Comment on above: Performed By: #### 2 [id number] #### [facility] [address] [place] [address] Hemoglobin (Bld) [Mass/Vol] 13.9 g/dL Normal 12.0-16.0 [facility] Comment on above: Performed By: #### 2 [id number] #### [facility] [address] [place] [address] MCH (RBC) [Entitic mass] 33.0 pg Normal 27.0-34.0 [facility] Comment on above: Performed By: #### 2 [id number] #### [facility] [address] [place] [address] MCHC (RBC) [Mass/Vol] 35.7 g/dL Normal 31.4-36.0 [facility] Comment on above: Performed By: #### 2 [id number] #### [facility] [address] [place] [address] MCV (RBC) [Entitic vol] 92.3 fL Normal 80.0-100.0 [facility] Comment on above: Performed By: #### 2 [id number] #### [facility] [address] [place] [address] Platelet mean volume (Bld) [Entitic vol] 9.9 fL Normal 6.4-10.8 [facility] Comment on above: Performed By: #### 2 [id number] #### [facility] [address] [place] [address] Platelets (Bld) [#/Vol] 155.0 E9/L Normal 150.0-500.0 [facility] Comment on above: Performed By: #### 2 [id number] #### [facility] [address] [place] [address] RBC (Bld) [#/Vol] 4.2 E12/L Low 4.3-5.9 [facility] Comment on above: Performed By: #### 2 [id number] #### [facility] [address] [place] [address] WBC corrected for nucl RBC Auto (Bld) [#/Vol] 11.2 E9/L High 4.0-11.0 [facility] Comment on above: Performed By: #### 2 [id number] #### [facility] [address] [place] [address] Progress Note-Physicianon Progress Note-Physician Patient: FEMI KRAMER Age: 24 years Sex: Female : 1995 Associated Diagnoses: None Author: TAWANDA SARMIENTO, Ludivina Phillip Basic Information 24 yo PPD#1 s/p , doing well. Ambulating, voiding, jon reg diet, pain well controlled with po pain meds. going well, but not sure she will keep this up. Was not planning on . Desires BTL for PP contraception. Lochia normal. Review of Systems Constitutional: Negative. Eye: Negative. Ear/Nose/Mouth/Throat: Negative. Respiratory: Negative. Cardiovascular: Negative. Breast: Negative. Gastrointestinal: Negative. Genitourinary: Negative. Gynecologic: bleeding. Hematology/Lymphatics: Negative. Endocrine: Negative. Immunologic: Negative. Musculoskeletal: Negative. Integumentary: Negative. Neurologic: Negative. Psychiatric: Negative. All other systems are negative Health Status Allergies: Allergic Reactions (Selected) No Known Allergies Current medications: (Selected) Inpatient Medications Ordered Lanolin: 1 ubaldo, Ointment, Topical, q2hr PRN Dry skin, Routine, Start date 05/29/20 15:37:00 EST Multivitamins with Folic Acid 1 mg Tab: 1 tab(s), Tab, Oral, qAM, Routine, Start date 05/30/20 7:30:00 EST acetaminophen 325 mg Tab: 975 mg = 3 tab(s), Tab, Oral, q8hr PRN Headache, Routine, Start date 05/29/20 15:37:00 EST acetaminophen-codeine 300 mg-30 mg Tab: 1 tab(s), Tab, Oral, q6hr PRN Pain 1-3, Routine, Start date 05/29/20 15:37:00 EST acetaminophen-codeine 300 mg-30 mg Tab: 2 tab(s), Tab, Oral, q6hr PRN Pain 4-7, Routine, Start date 05/29/20 15:37:00 EST benzocaine-menthol 20%-0.5% topical spray: 1 spray(s), [place], Topical, q4hr PRN Pain, Routine, Start date 05/29/20 15:37:00 EST calcium carbonate 500 mg Chew Tab: 500 mg = 1 tab(s), Tab-Chew, Oral, q6hr PRN Control of stomach acid, Routine, Start date 05/29/20 15:37:00 EST docusate sodium 100 mg Cap: 100 mg = 1 cap(s), Cap, Oral, BID, Routine, Start date 05/29/20 21:00:00 EST hydrocortisone 2.5% Rectal Crm w/Appl: 1 ubaldo, Cream-Ubaldo, Rectal, QID PRN Other (see comment), Routine, Start date 05/29/20 15:37:00 EST hydrocortisone 25 mg Supp: 25 mg = 1 supp, Supp, Rectal, BID PRN Other (see comment), Routine, Start date 05/29/20 15:37:00 EST ibuprofen 600 mg Tab: 600 mg = 1 tab(s), Tab, Oral, q6hr PRN Other (see comment), Routine, Start date 05/29/20 15:37:00 EST measles/mumps/rubella virus vaccine subcutaneous injection: 0.5 mL, Powder-Inj, SubCutaneous, Once PRN Other (see comment), Routine, Start date 05/29/20 15:37:00 EST oxytocin additive 30 unit(s) + Dextrose 5% in Lactated Ringers Premix 500 mL: 500 mL, IV, Titrate, Routine, Start date 05/29/20 15:34:00 EST, Total volume (mL): 500, Titrate to control bleeding after delivery of placenta., 76.8 kg, 1.86, m2 simethicone 80 mg Chew Tab: 80 mg = 1 tab(s), Tab-Chew, Oral, QID PRN Gas, Routine, Start date 05/29/20 15:37:00 EST witch jose rectal 50% pad: 1 ubaldo, Pad, Topical, q4hr PRN Other (see comment), Routine, Start date 05/29/20 15:37:00 EST zolpidem 5 mg Tab: 5 mg = 1 tab(s), Tab, Oral, Bedtime PRN Sleep for 7 day(s), Stop date 06/05/20 15:36:00 EST, Routine, Start date 05/29/20 15:37:00 EST Prescriptions Prescribed PNV oral tablet: 1 tab(s), Oral, Daily, 90 tab(s), Refill(s) 4, ANY VITAMIN, [facility], 163, cm, 11/07/19 8:38:00 EDT, Height/Length Measured, 71.9, kg, 11/07/19 8:38:00 EDT, Weight Measured valacyclovir 500 mg Tab: 500 mg = 1 tab(s), Oral, q12hr, # 30 tab(s), Refills(s) 1, Pharmacy: [facility], 163, cm, 04/25/20 11:47:00 EST, Height/Length Dosing, 78.1, kg, 04/25/20 11:47:00 EST, Weight Dosing Physical Examination Vital Signs 05/30/2020 7:49 EST Temperature Oral 36.8 DegC Heart Rate Monitored 75 bpm Systolic Blood Pressure 122 mmHg Diastolic Blood Pressure 75 mmHg Mean Arterial Pressure, Monitered 91 mmHg SpO2 98 % 05/30/2020 7:49 EST Respiratory Rate 16 br/min Blood Pressure Location Left arm Mean Arterial Pressure, Cuff 91 mmHg Hourly Rounding Yes General: Alert and oriented, No acute distress. Eye: Pupils are equal, round and reactive to light. HENT: Normocephalic, Normal hearing, Oral mucosa is moist. Respiratory: Lungs are clear to auscultation, Respirations are non-labored, Breath sounds are equal, Symmetrical chest wall expansion. Cardiovascular: Normal rate, Regular rhythm, Normal peripheral perfusion. Gastrointestinal: Soft, Non-tender, Non-distended, Normal bowel sounds. Musculoskeletal Normal range of motion. Normal strength. Integumentary: Warm, Dry. Neurologic: Alert, Oriented. Psychiatric: Cooperative, Appropriate mood & affect. Review / Management Results review: Lab results 05/30/2020 6:26 EST Hgb 13.9 gm/dL 05/29/2020 7:34 EST Hgb 14.4 gm/dL . Impression and Plan 24 yo PPD#1 s/p , doing well. 1. Routine PP care 2. Plan for BTL 3-4 wks PP 3. Anticipate (more content not included)... Normal [facility] Comment on above: Result Comment: Elec tronically Signed By: Ludivina GARDNER MD\.br\Date and Time Signed: 05/30/20 17:52 EST Progress Note-Physician Patient: FEMI KRAMER Age: 24 years Sex: Female : 1995 Associated Diagnoses: None Author: Ludivina GARDNER MD Basic Information 24 yo PPD#1 s/p , doing well. Ambulating, voiding, jon reg diet, pain well controlled with po pain meds. going well, but not sure she will keep this up. Was not planning on . Desires BTL for PP contraception. Lochia normal. Review of Systems Constitutional: Negative. Eye: Negative. Ear/Nose/Mouth/Throat: Negative. Respiratory: Negative. Cardiovascular: Negative. Breast: Negative. Gastrointestinal: Negative. Genitourinary: Negative. Gynecologic: bleeding. Hematology/Lymphatics: Negative. Endocrine: Negative. Immunologic: Negative. Musculoskeletal: Negative. Integumentary: Negative. Neurologic: Negative. Psychiatric: Negative. All other systems are negative Health Status Allergies: Allergic Reactions (Selected) No Known Allergies Current medications: (Selected) Inpatient Medications Ordered Lanolin: 1 ubaldo, Ointment, Topical, q2hr PRN Dry skin, Routine, Start date 05/29/20 15:37:00 EST Multivitamins with Folic Acid 1 mg Tab: 1 tab(s), Tab, Oral, qAM, Routine, Start date 05/30/20 7:30:00 EST acetaminophen 325 mg Tab: 975 mg = 3 tab(s), Tab, Oral, q8hr PRN Headache, Routine, Start date 05/29/20 15:37:00 EST acetaminophen-codeine 300 mg-30 mg Tab: 1 tab(s), Tab, Oral, q6hr PRN Pain 1-3, Routine, Start date 05/29/20 15:37:00 EST acetaminophen-codeine 300 mg-30 mg Tab: 2 tab(s), Tab, Oral, q6hr PRN Pain 4-7, Routine, Start date 05/29/20 15:37:00 EST benzocaine-menthol 20%-0.5% topical spray: 1 spray(s), [place], Topical, q4hr PRN Pain, Routine, Start date 05/29/20 15:37:00 EST calcium carbonate 500 mg Chew Tab: 500 mg = 1 tab(s), Tab-Chew, Oral, q6hr PRN Control of stomach acid, Routine, Start date 05/29/20 15:37:00 EST docusate sodium 100 mg Cap: 100 mg = 1 cap(s), Cap, Oral, BID, Routine, Start date 05/29/20 21:00:00 EST hydrocortisone 2.5% Rectal Crm w/Appl: 1 ubaldo, Cream-Ubaldo, Rectal, QID PRN Other (see comment), Routine, Start date 05/29/20 15:37:00 EST hydrocortisone 25 mg Supp: 25 mg = 1 supp, Supp, Rectal, BID PRN Other (see comment), Routine, Start date 05/29/20 15:37:00 EST ibuprofen 600 mg Tab: 600 mg = 1 tab(s), Tab, Oral, q6hr PRN Other (see comment), Routine, Start date 05/29/20 15:37:00 EST simethicone 80 mg Chew Tab: 80 mg = 1 tab(s), Tab-Chew, Oral, QID PRN Gas, Routine, Start date 05/29/20 15:37:00 EST witch jose rectal 50% pad: 1 ubaldo, Pad, Topical, q4hr PRN Other (see comment), Routine, Start date 05/29/20 15:37:00 EST zolpidem 5 mg Tab: 5 mg = 1 tab(s), Tab, Oral, Bedtime PRN Sleep for 7 day(s), Stop date 06/05/20 15:36:00 EST, Routine, Start date 05/29/20 15:37:00 EST Prescriptions Prescribed PNV oral tablet: 1 tab(s), Oral, Daily, 90 tab(s), Refill(s) 4, ANY VITAMIN, [facility], 163, cm, 11/07/19 8:38:00 EDT, Height/Length Measured, 71.9, kg, 11/07/19 8:38:00 EDT, Weight Measured valacyclovir 500 mg Tab: 500 mg = 1 tab(s), Oral, q12hr, # 30 tab(s), Refills(s) 1, Pharmacy: [facility], 163, cm, 04/25/20 11:47:00 EST, Height/Length Dosing, 78.1, kg, 04/25/20 11:47:00 EST, Weight Dosing Physical Examination Vital Signs 05/30/2020 7:49 EST Temperature Oral 36.8 DegC Heart Rate Monitored 75 bpm Systolic Blood Pressure 122 mmHg Diastolic Blood Pressure 75 mmHg Mean Arterial Pressure, Monitered 91 mmHg SpO2 98 % 05/30/2020 7:49 EST Respiratory Rate 16 br/min Blood Pressure Location Left arm Mean Arterial Pressure, Cuff 91 mmHg Hourly Rounding Yes General: Alert and oriented, No acute distress. Eye: Pupils are equal, round and reactive to light. HENT: Normocephalic, Normal hearing, Oral mucosa is moist. Respiratory: Lungs are clear to auscultation, Respirations are non-labored, Breath sounds are equal, Symmetrical chest wall expansion. Cardiovascular: Normal rate, Regular rhythm, Normal peripheral perfusion. Gastrointestinal: Soft, Non-tender, Non-distended, Normal bowel sounds. Musculoskeletal Normal range of motion. Normal strength. Integumentary: Warm, Dry. Neurologic: Alert, Oriented. Psychiatric: Cooperative, Appropriate mood & affect. Review / Management Results review: Lab results 05/30/2020 6:26 EST Hgb 13.9 gm/dL 05/29/2020 7:34 EST Hgb 14.4 gm/dL . Impression and Plan 24 yo PPD#1 s/p , doing well. 1. Routine PP care 2. Plan for BTL 3-4 wks PP 3. Anticipate d/c tomorrow. Ludivina Gardner MD Normal [facility] Comment on above: Result Comment: Elec tronically Signed By: TAWANDA SARMIENTO, Ludivina J\.br\Date and Time Signed: 05/30/20 17:55 EST ABO/Rhon 05-29-2020 ABO/Rh Positive Invalid Interpretation Code [facility] Comment on above: Performed By: #### 1 [id number] ####[facility] [address] [place] [address] ABO/Rh History Checkon 05-29 ABO/Rh History Check Verified Hx Blood Type Normal [facility] Comment on above: Performed By: #### 1 [id number] ####[facility] [address] [place] [address] ABSCon 05-29-2020 ABSC Gel Interp Negative Normal [facility] Comment on above: Performed By: #### 1 [id number] ####[facility] [address] [place] [address] Blood Bank ID#on 05-29-2020 BBID# [id number] Invalid Interpretation Code [facility] Comment on above: Performed By: #### 1 [id number] ####[facility] [address] [place] [address] CBC w/Indiceson 05-29-2020 Erythrocyte distribution width (RBC) [Ratio] 12.6 % Normal 10.9-14.2 [facility] Comment on above: Performed By: #### 2 [id number] #### [facility] [address] [place] [address] Hematocrit (Bld) [Volume fraction] 41.6 % Normal 34.0-46.0 [facility] Comment on above: Performed By: #### 2 [id number] #### [facility] [address] [place] [address] Hemoglobin (Bld) [Mass/Vol] 14.4 g/dL Normal 12.0-16.0 [facility] Comment on above: Performed By: #### 2 [id number] #### [facility] [address] [place] [address] MCH (RBC) [Entitic mass] 32.3 pg Normal 27.0-34.0 [facility] Comment on above: Performed By: #### 2 [id number] #### [facility] [address] [place] [address] MCHC (RBC) [Mass/Vol] 34.6 g/dL Normal 31.4-36.0 [facility] Comment on above: Performed By: #### 2 [id number] #### [facility] [address] [place] [address] MCV (RBC) [Entitic vol] 93.5 fL Normal 80.0-100.0 [facility] Comment on above: Performed By: #### 2 [id number] #### [facility] [address] [place] [address] Platelet mean volume (Bld) [Entitic vol] 10.1 fL Normal 6.4-10.8 [facility] Comment on above: Performed By: #### 2 [id number] #### [facility] [address] [place] [address] Platelets (Bld) [#/Vol] 191.0 E9/L Normal 150.0-500.0 [facility] Comment on above: Performed By: #### 2 [id number] #### [facility] [address] [place] [address] RBC (Bld) [#/Vol] 4.4 E12/L Normal 4.3-5.9 [facility] Comment on above: Performed By: #### 2 [id number] #### [facility] [address] [place] [address] WBC corrected for nucl RBC Auto (Bld) [#/Vol] 9.8 E9/L Normal 4.0-11.0 [facility] Comment on above: Performed By: #### 2 [id number] #### [facility] [address] [place] [address] Consenton 05-29-2020 Consent [id number]#1.00CD:1 27 Normal [facility] Consent for Procedure/Surger yon 05-29-2020 Consent for Procedure/Surgery [id number]#1.00CD:12 7 [facility] Consent for Procedure/Surgery [id number]#1.00CD:12 7 [facility] Consent for Treatmenton Consent for Treatment [id number]#1.00CD:1 27 [facility] Consent for Treatment [id number]#1.00CD:1 27 [facility] Delivery Summaryon 0 Delivery Summary Patient: MÓNICA KRAMER Age: 24 years Sex: Female : 1995 Associated Diagnoses: None Author: Ludivina GARDNER MD Basic Information Gestational Age: Gestational Age (EGA) and LETY * Note: EGA calculated as of 05/29/2020 LETY: 06/05/2020 EGA*: 39 weeks Type: Authoritative Method Date: 08/30/2019 Method: Last Menstrual Period (08/30/2019) Confirmation: Confirmed Description: -- Comments: -- Entered by: Kaylyn Lobo LPN on 10/24/2019 Other LETY Calculations for this : No additional LETY calculations have been recorded for this . Procedure Vaginal delivery procedure Performed by: Ludivina GARDNER MD. Indication for delivery: labor progression induced. Informed consent obtained: for anesthesia, for procedure. Anesthesia method: epidural. Position: birthing bed. Rupture of membranes: moderate amount of fluid, appearance of fluid clear, amniotomy. Delivery of : time of 05/29/2020 14:48:00, uneventful, umbilical cord clamped and cut, RACHELE presentation, with right shoulder anterior, left shoulder posterior. Tight nuchal cord x1 reduced after delivery of body. Status of Viable Gender: male. Apgars: 7 at one minute, 9 at five minutes. Weight: 3644 grams, =8# 1oz. Cord blood: blood gases obtained, specimen obtained. Umbilical cord: three vessels. Resuscitation required: manual stimulation. Personnel present at resuscitation: L&D RN. Not suctioned prior to delivery of shoulders. Placenta: delivery spontaneous, intact, mono-amnionic, no abnormalities. Uterus: hemostasis. Procedure tolerated: well. Complications Maternal: no complications. Tyler/ Baby A: no complications. Post Delivery Intact. Estimated blood loss: 300 ml. Impression and Plan Vaginal Delivery: condition: Stable. Maternal condition: Stable. Ludivina Gardner MD [facility] Comment on above: Result Comment: Elec tronically Signed By: TAWANDA SARMIENTO, Ludivina Phillip\.br\Date and Time Signed: 05/29/20 17:01 EST Discharge Instructionson Discharge Instructions [id number]#1.00CD:12 7 [facility] Help Me Grow Referralon Help Me Grow Referral [id number]#1.00CD:12 7 [facility] Progress Note-Physicianon Progress Note-Physician Patient: FEMI KRAMER Age: 24 years Sex: Female : 1995 Associated Diagnoses: None Author: Hernando Matos JR, DO Preoperative Information Anesthesia history: Patient history: Denies any history of anesthesia complications.. Family history: Denies any history of anesthesia complications.. Review of Systems Respiratory: Denies sob, or change in respiratory status.. Cardiovascular: Denies chest pain, or palpitations. No recent change in functional status.. Hematology/Lymphatics: Denies any history of bleeding disorders or excessive bleeding/ bruising.. Neurologic: Denies any history of significant motor/sensory deficits, TIA's or CVA's.. Health Status Allergies: Allergic Reactions (Selected) No Known Allergies Current medications: (Selected) Inpatient Medications Ordered D5LR 1000 mL Soln-IV 1,000 mL: 1,000 mL, IV, 125 mL/hr, Routine, Start date 05/29/20 7:14:00 EST, 8 hour(s), Total volume (mL): 1,000, 78.6 kg, May saline lock IV if patient desires mobility, 1.89, m2 Epidural Bag Ropivacaine Fentanyl 200 mL: 200 mL, Epidural, 10 mL/hr, for 48 hour(s), Stop date 05/31/20 9:52:00 EST, Routine, Start date 05/29/20 9:53:00 EST, 20 hour(s), Total volume (mL): 200, 76.8 kg, 1.86, m2 Lactated Ringers IV Cher 1000 mL 1,000 mL: 1,000 mL, IV, 125 mL/hr, Routine, Start date 05/29/20 7:14:00 EST, 8 hour(s), Total volume (mL): 1,000, 78.6 kg, May saline lock IV if patient desires mobility, 1.89, m2 Lactated Ringers IV Cher 1000 mL 1,000 mL: 1,000 mL, IV, 125 mL/hr, Routine, Start date 05/29/20 9:53:00 EST, 8 hour(s), Total volume (mL): 1,000, 76.8 kg, 1.86, m2 Lactated Ringers IV Cher 1000 mL 1,000 mL: 1,000 mL, IV, Bolus, Other (see comment) for 2 dose(s), Stop date 05/31/20 9:52:00 EST, Routine, Start date 05/29/20 9:53:00 EST, Total volume (mL): 1,000, 76.8 kg, 1.86, m2 Zofran 4 mg/2 mL Injection: 4 mg = 2 mL, Injection, IV Push, q4hr PRN Itching, Routine, Start date 05/29/20 9:53:00 EST diphenhydrAMINE 50 mg/mL Inj: 25 mg = 0.5 mL, Injection, IV Push, q4hr PRN Itching, Routine, Start date 05/29/20 9:53:00 EST ePHEDrine 50 mg/mL Inj: 10 mg = 0.2 mL, Injection, IV Push, Once PRN Other (see comment), Routine, Start date 05/29/20 9:53:00 EST fentaNYL 50 mcg/mL Inj 2 mL: 100 microgram = 2 mL, Injection, Epidural, Once PRN Other (see comment), Routine, Start date 05/29/20 9:53:00 EST naloxone 1 mg/mL Soln: 2 mg = 2 mL, Injection, IV Push, Once PRN Other (see comment), Routine, Start date 05/29/20 9:53:00 EST ondansetron 4 mg/2 mL Inj: 4 mg = 2 mL, Injection, IV Push, q4hr PRN Nausea, Routine, Start date 05/29/20 7:14:00 EST oxytocin additive 30 unit(s) [1 munit/min] + Dextrose 5% in Lactated Ringers Premix 500 mL: 500 mL, IV, 1 mL/hr, Routine, Start date 05/29/20 7:14:00 EST, 500 hour(s), Total volume (mL): 500, Titrate per protocol, 78.6 kg, 1.89, m2 ropivacaine 0.2% injectable solution 10 mL: 18 mg, 9 mL, Injection, Epidural, Once PRN Other (see comment), Routine, Start date 05/29/20 9:53:00 EST Prescriptions Prescribed PNV oral tablet: 1 tab(s), Oral, Daily, 90 tab(s), Refill(s) 4, ANY VITAMIN, [facility] 320, 163, cm, 11/07/19 8:38:00 EDT, Height/Length Measured, 71.9, kg, 11/07/19 8:38:00 EDT, Weight Measured valacyclovir 500 mg Tab: 500 mg = 1 tab(s), Oral, q12hr, # 30 tab(s), Refills(s) 1, Pharmacy: [facility], 163, cm, 04/25/20 11:47:00 EST, Height/Length Dosing, 78.1, kg, 04/25/20 11:47:00 EST, Weight Dosing Problem list: All Problems Supervision of normal in third trimester / SNOMED CT 200494644 / Confirmed Depression during , antepartum / SNOMED CT 3165482734 / Confirmed Genital herpes simplex virus (HSV) infection in mother affecting / SNOMED CT 6793968497 / Confirmed / SNOMED CT 346612235 / Confirmed Resolved: / SNOMED CT 055917563 Canceled: Supervision of normal in second trimester / SNOMED CT 859800427 Histories Past Medical History: Resolved ([id number]): Onset on 07/27/2016 at 20 years. Resolved on 04/12/2017 at 21 years. Family History: Hypertension Grandparent Diabetes mellitus type 1 Grandparent Procedure history: Tonsillectomy ([id number]). 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 Physical Examination Vital Signs (last 24 hrs) Last Charted Temp Oral 36.6 DegC (MAY 29 07:30) SBP 133 mmHg (MAY 29:30) DBP 82 mmHg (MAY 29 07:30) Weight 76.6 kg (MAY 29 07:40) Height 1 (more content not included)... Normal [facility] Comment on above: Result Comment: Elec tronically Signed By: Hernando Matos JR, DO\.br\Date and Time Signed: 05/29/20 10:57 EST Progress Note-Physician Patient: FEMI KRAMER Age: 24 years Sex: Female : 1995 Associated Diagnoses: None Author: Hernando Matos JR, DO Procedure Epidural injection procedure Confirmed: patient. Performed by: self. Informed consent: signed by patient. Indication: CONTROL OF LABOR PAIN. Location: lumbar. Preparation and technique: informed consent obtained, positioned sitting upright, sterile preparation of site (in usual fashion, with 10 % povidone iodine, draped to expose affected area, UTILIZING AN ARROW EPIDURAL KIT), local anesthesia lidocaine with epinephrine, approach (midline, L 3-4), needle (# 17 gauge, placed via loss of resistance technique, WITH NS AND AIR), aspiration NEGATIVE FOR BLOOD OR CSF, injectant UPON LOCATION OF THE EPIDURAL SPACE, A 19G ARROW EPIDURAL CATHETER WAS EASILY INSERTED WITHOUT PAIN OR PARESTHESIAS TO 3CM INTO THE EPIDURAL SPACE. AFTER A TEST DOSE, A TOTAL BOLUS OF 9 ML OF NAROPIN 0.2% AND 100MCG OF FENTANYL WAS EASILY INJECTED. PATIENT DENIED ANY SIGNS OR SYMPTOMS OF INTRAVASCULAR OR INTRATHECAL INJECTION, THEN AN EPIDURAL HOTEL RECREATIONAL FACILITIES MANAGER WAS INITIATED AND MAINTAINED AT 10 ML/HR. INFUSION TO BE DISCONTINUED AT THE TAPE MAKING MACHINE OPERATOR'S REQUEST.. Procedure tolerated: well. Complications: NO APPARENT COMPLICATIONS AT THE END OF THE PROCEDURE. 12S/ 5S Impression and Plan Normal [facility] Comment on above: Result Comment: Elec tronically Signed By: Hernando Matos JR, DO.portillo\Date and Time Signed: 05/29/20 10:56 EST UA With Cult Reflexon 2019 Bacteria LM Ql (Urine sed) TRACE Normal Trace [facility] Comment on above: Order Comment: Urina ry Catheter Insertion triggered Urinalysis With Culture Reflex order by discern. Performed By: #### 1 [id number] ####[facility] [address] [place] [address] Bilirubin Ql (U) Negative Normal Negative [facility] Comment on above: Order Comment: Urina ry Catheter Insertion triggered Urinalysis With Culture Reflex order by discern. Performed By: #### 1 [id number] ####[facility] [address] [place] [address] Clarity (U) CLEAR Normal Clear [facility] Comment on above: Order Comment: Urina ry Catheter Insertion triggered Urinalysis With Culture Reflex order by discern. Performed By: #### 1 [id number] ####[facility] [address] [place] [address] Color (U) YELLOW Normal Yellow [facility] Comment on above: Order Comment: Urina ry Catheter Insertion triggered Urinalysis With Culture Reflex order by discern. Performed By: #### 1 [id number] ####[facility] [address] [place] [address] Epithelial cells.squamous LM.HPF (Urine sed) [#/Area] 0-2 Normal 0-2 [facility] Comment on above: Order Comment: Urina ry Catheter Insertion triggered Urinalysis With Culture Reflex order by discern. Performed By: #### 1 [id number] ####[facility] [address] [place] [address] Glucose Test strip (U) [Mass/Vol] Negative Normal Negative [facility] Comment on above: Order Comment: Urina ry Catheter Insertion triggered Urinalysis With Culture Reflex order by discern. Performed By: #### 1 [id number] ####[address] [address] Hemoglobin Ql (U) TRACE Abnormal Negative [facility] Comment on above: Order Comment: Urina ry Catheter Insertion triggered Urinalysis With Culture Reflex order by discern. Performed By: #### 1 [id number] ####[address] [address] Ketones (U) [Mass/Vol] Negative Normal Negative [facility] Comment on above: Order Comment: Urina ry Catheter Insertion triggered Urinalysis With Culture Reflex order by discern. Performed By: #### 1 [id number] ####[address] [address] [place].plasma/Lith ium.RBC (Bld) [Mass ratio] 0-3 Normal 0-3 [facility] Comment on above: Order Comment: Urina ry Catheter Insertion triggered Urinalysis With Culture Reflex order by discern. Performed By: #### 1 [id number] ####[address] [address] Nitrite Ql (U) Negative Normal Negative [facility] Comment on above: Order Comment: Urina ry Catheter Insertion triggered Urinalysis With Culture Reflex order by discern. Performed By: #### 1 [id number] ####[address] [address] pH (U) 7.0 [pH] Invalid Interpretation Code 5.0-9.0 [facility] Comment on above: Order Comment: Urina ry Catheter Insertion triggered Urinalysis With Culture Reflex order by discern. Performed By: #### 1 [id number] ####[address] [address] Protein (U) [Mass/Vol] Negative Normal Negative [facility] Comment on above: Order Comment: Urina ry Catheter Insertion triggered Urinalysis With Culture Reflex order by discern. Performed By: #### 1 [id number] ####[address] [address] Specific gravity (U) [Rel density] 1.015 Invalid Interpretation Code 1.005-1.030 [facility] Comment on above: Order Comment: Urina ry Catheter Insertion triggered Urinalysis With Culture Reflex order by discern. Performed By: #### 1 [id number] ####[address] [address] UA Spec Desc Romero Normal [facility] Comment on above: Order Comment: Urina ry Catheter Insertion triggered Urinalysis With Culture Reflex order by discern. Performed By: #### 1 [id number] ####[address] [address] Urobilinogen Qn (U) 0.2 {Damien'U}/dL Normal 0.0-1.0 [facility] Comment on above: Order Comment: Urina ry Catheter Insertion triggered Urinalysis With Culture Reflex order by discern. Performed By: #### 1 [id number] ####[address] [address] WBC Auto Ql (U) Negative Normal Negative [facility] Comment on above: Order Comment: Urina ry Catheter Insertion triggered Urinalysis With Culture Reflex order by discern. Performed By: #### 1 [id number] ####[address] [address] WBC LM.HPF (Urine sed) [#/Area] 0-5 Normal 0-5 [facility] Comment on above: Order Comment: Urina ry Catheter Insertion triggered Urinalysis With Culture Reflex order by discern. Performed By: #### 1 [id number] ####[address] [address] Vaccinationson 05-29-2020 Vaccinations [id number]#1.00CD:1 27 Normal [facility] Vaccinations [id number]#1.00CD:1 27 Normal [facility] Coding Summary.on 05-25-2020 Coding Summary. CODING DATE: 020 [facility] STATUS: Home (Routine DC) PAYOR: Medicaid EAPG DESCRIPTION 0397 LEVEL II MICROBIOLOGY TESTS ADMIT DX: REASON FOR VISIT DX: Z34.93 Encounter for supervision of normal , unspecified, third trimester FINAL DX: PRINCIPAL: Z34.93 Encounter for supervision of normal , unspecified, third trimester SECONDARY: PYMT PROC EAPG STAT DESCRIPTION DOCTOR NAME DATE NOTE: The code number assigned matches the documented diagnosis and / or procedure in the patient's chart. However, the narrative phrase printed from the coding software may appear abbreviated, or result in slightly different terminology. Coded By: Shakila Peter Date Saved: 05/25/2020 05:57 am [facility] Consent for Procedure/Surger yon 05-22-2020 Consent for Procedure/Surgery [id number]:1 27 [facility] Formson 05-22-2020 Forms [id number]#1.00CD:1 27 [facility] Ambulatory Clinical Summaryo n 05-21-2020 Ambulatory Clinical Summary {[id number] D:[id number] [facility] Obstetrics Office/Clinic Not john 05-21-2020 Obstetrics Office/Clinic Note Chief Complaint OB 37w 6d, baby moving, ROJAS and nausea increase hip and back pain Obstetric History History (0,0,0,1) # 1 Baby 1 Outcome Date: 04/12/2017 Outcome: Live Outcome or Result: Vaginal Gender: Female Gest Age: 37 weeks Wt: 3033 g Hospital: [facility] Labor: -- Child's Name: -- Baby's Father: -- Comment: Tenzin EGA and LETY Gestational Age (EGA) and LETY * Note: EGA calculated as of 05/21/2020 LETY: 06/05/2020 EGA*: 37 weeks 6 days Type: Authoritative Method Date: 08/30/2019 Method: Last Menstrual Period (08/30/2019) Confirmation: Confirmed Description: -- Comments: -- Entered by: Kaylyn Lobo LPN on 10/24/2019 Other LETY Calculations for this : No additional LETY calculations have been recorded for this History of Present Illness ob visit Review of Systems Constitutional: No fever, No chills, No sweats, No weakness. Respiratory: No shortness of breath, No cough. Cardiovascular: No chest pain, Noperipheral edema. Physical Exam Vitals & Measurements T: 36.8 ?C (Temporal Artery) BP: 16/72 HT: 163.0 cm HT: 163 cm WT: 78.6 kg WT: 78.6 kg BMI: 29.58 Examinations Glucose Urine Dipstick: Negative Protein Urine Dipstick: Negative Weight Measured: 78.6 kg Systolic Blood Pressure: 16 mmHg Low Diastolic Blood Pressure: 72 mmHg D-EGA at Documented Date, Time: 37W 6D Fundal Height: 40.5 cm Labor Signs/Symptoms: Headaches, Nausea, Other: hip pain Cervix Dilation: 3 cm Cervix Effacement: 80 Station: -3 Armijo's Score: 9 Baby A - Activity: Decreased per patient Baby A - FHR: 120 bpm Next Appointment: 1 week(s) Antepartum Comment: desires IOL next wk. Signed labor/larc consents - desires PP BTL. Signed medicaid and surgery consents. IOL sched for next 05/29 @ 0700. BPP today for decr General Exam: Constitutional: alert, no acute distress, well hydrated, well developed, well nourished. Skin: normal color, no rashes, no lesions, no unusual bruising. Head: atraumatic, normocephalic. Eyes: EOM intact, no nystagmus, no icterus. Ears: no external deformities, gross hearing intact. Respiratory: no respiratory distress. Abdomen: gravid, nontender. Extremities: no deformities, no edema. Psych: oriented to all spheres, affect and mood appropriate, normal interaction, good eye contact. Assessment/Plan IOL next Wed, 05/29 @ 0700. BPP today due to [facility]. 1. Supervision of normal in third trimester (Z34.93: Encounter for supervision of normal , unspecified, third trimester) Ordered: Office Visit Level 4 Est 91347 TH US Biophysical Profile w/o N-Str 2. Genital herpes simplex virus (HSV) infection in mother affecting (O98.319: Other infections with a predominantly sexual mode of transmission complicating , unspecified trimester) Ordered: Office Visit Level 4 Est 21034 TH US Biophysical Profile w/o N-Str 3. Depression during , antepartum (O99.340: Other mental disorders complicating , unspecified trimester) Ordered: Office Visit Level 4 Est 31973 TH US Biophysical Profile w/o N-Str 4. 37 weeks gestation of (Z3A.37: 37 weeks gestation of ) Ordered: Office Visit Level 4 Est 79547 TH US Biophysical Profile w/o N-Str Follow-up With When Contact Information Ludivina GARDNER MD In [address] [place] [address]- Additional Instructions: Problem List/Past Medical History Ongoing Depression during , antepartum Genital herpes simplex virus (HSV) infection in mother affecting Supervision of normal in third trimester Historical Procedure/Surgical History Tonsillectomy. 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 Never Smokeless Tobacco Use:., 05/13/2020 Family History Diabetes mellitus type 1: Grandparent. Hypertension: Grandparent. Lab Results Ambulatory Point of Care Results Glucose Urine Dipstick: Negative (05/21/20 09:40:00) Protein Urine Dipstick: Negative (05/21/20 09:40:00) Normal [facility] Comment on above: Result Comment: Elec tronically Signed By: Ludivina GARDNER MD\.br\Date and Time Signed: 05/21/20 10:57 EST Patient Educationon 12-01-20 20 Patient Education Score The score is a number given to a baby at 1 and 5 minutes after . The 1 minute score tells how well the baby survived the process. The 5 minute score tells how the baby is adapting to being outside of the womb. It is a standard way to exam babies before they leave the delivery room. The test is scored on 10 points. The highest score is 10. The lowest is 0. Both the tests are the same. They are the total of points from five observations: ACTIVITY ? 2 points if the baby is active, moving arms and legs. ? 1 point if the baby's arms are curled up and legs are bent. ? 0 points if the baby is limp. PULSE (HOW MANY TIMES THE HEART BEATS IN A MINUTE) ? 2 points if the pulse is over 100. A baby's heart is tiny, so it beats fast. ? 1 point if the pulse is 80-100. ? 0 points if the pulse is absent or below 80. GRIMACE ? 2 points if the baby coughs or pulls away when suctioned. ? 1 point if the baby makes a face when suctioned or touched. ? 0 points if the baby does not respond at all. APPEARANCE ? 2 points if the skin is the same color all over the body. ? 1 point if the arms and legs are a different, usually bluish color. ? 0 points if the baby is pale or bluish saldivar. RESPIRATION OR BREATHING ? 2 points if the baby is crying. ? 1 point if breathing is slow or weak. This can happen if the mother has had narcotics. ? 0 points if the baby is not breathing at all. Scores below 3 are critically low, scores 4 to 6 are fairly low, and scores 7 to 10 are normal. A low score in the first minute indicates that the baby needs some type of assistance. If the score remains low longer than 10 minutes there is a risk of the baby having neurological problems. Even babies with lower scores at 10 minutes tend to do well. The score does not predict intelligence, personality, or abilities. The Score is not used in babies that require immediate resuscitation. The ABC (airway, breathing, and circulation) emergency evaluation is used instead. Document Released: 09/13/2008 Document Revised: 03/01/2013 Document Reviewed: 09/13/2008 [employer]? Patient Information ?2013 [employer]. Family Medicine Score The score is a number given to a baby at 1 and 5 minutes after . The 1 minute score tells how well the baby survived the process. The 5 minute score tells how the baby is adapting to being outside of the womb. It is a standard way to exam babies before they leave the delivery room. The test is scored on 10 points. The highest score is 10. The lowest is 0. Both the tests are the same. They are the total of points from five observations: ACTIVITY ? 2 points if the baby is active, moving arms and legs. ? 1 point if the baby's arms are curled up and legs are bent. ? 0 points if the baby is limp. PULSE (HOW MANY TIMES THE HEART BEATS IN A MINUTE) ? 2 points if the pulse is over 100. A baby's heart is tiny, so it beats fast. ? 1 point if the pulse is 80-100. ? 0 points if the pulse is absent or below 80. GRIMACE ? 2 points if the baby coughs or pulls away when suctioned. ? 1 point if the baby makes a face when suctioned or touched. ? 0 points if the baby does not respond at all. APPEARANCE ? 2 points if the skin is the same color all over the body. ? 1 point if the arms and legs are a different, usually bluish color. ? 0 points if the baby is pale or bluish saldivar. RESPIRATION OR BREATHING ? 2 points if the baby is crying. ? 1 point if breathing is slow or weak. This can happen if the mother has had narcotics. ? 0 points if the baby is not breathing at all. Scores below 3 are critically low, scores 4 to 6 are fairly low, and scores 7 to 10 are normal. A low score in the first minute indicates that the baby needs some type of assistance. If the score remains low longer than 10 minutes there is a risk of the baby having neurological problems. Even babies with lower scores at 10 minutes tend to do well. The score does not predict intelligence, personality, or abilities. The Score is not used in babies that require immediate resuscitation. The ABC (airway, breathing, and circulation) emergency evaluation is used instead. Document Released: 09/13/2008 Document Revised: 03/01/2013 Document Reviewed: 09/13/2008 [facility]? Patient Information ?2013 [employer]. Normal [facility] US Biophysical Profile w/o N-Stron 05-21-2020 US Biophysical Profile w/o N-Str Exam Date/Time: 05/21/2020 11:11 EST Reason for Exam: Decreased movements Report IMPRESSION: BIOPHYSICAL PROFILE SCORE OF 8 OUT OF 8. EXAM: US Biophysical Profile w/o N-Str CLINICAL HISTORY: Decreased movements Gestational Age by LMP: 37 weeks, 6 days 37w6d (weeks/days) COMPARISON: 05/08/2020 TECHNIQUE: Grayscale evaluation of the fetus was performed for biophysical profile purposes and does not constitute an anatomic survey. FINDINGS: There is a single intrauterine fetus in a cephalic position. There is a posterior placenta without evidence of placenta previa. Amniotic Fluid Index: 15.0 cm cardiac activity is measured at 146 bpm. Points were awarded for the following: * Breathin *Gross Body Movement: 2 * Tone: 2 *Amniotic Fluid Volume: 2 Biophysical Profile Sum Score: 8 FINAL REPORT Dictated: 05/21/2020 2:26 pm Pato Orta MD Signed (Electronic Signature): 05/21/2020 2:26 pm Signed by: Pato Orta MD Transcribed by: LUIS Technologist: MIKEY Technical Comments LMP : 08/30/19 LETY 06/05/20 LETY Obtained LETY by LMP GA 37w6d History 2 Para 1 Technical Comments Transabdominal Ultrasound Performed Placenta Location posterior, fundal Placenta Grade 2 Positioning Vertex Amniotic Fluid Volume Normal Biophysical Profile Total Score out of 8 8 Normal [facility] Ambulatory Clinical Summaryo n 05-13-2020 Ambulatory Clinical Summary {[id number] Normal [facility] Obstetrics Office/Clinic Not john 05-13-2020 Obstetrics Office/Clinic Note Chief Complaint OB 36w 5d, baby moving, had cramping and sharp pain down through vagina, GBS done last visit Obstetric History History (0,0,0,1) # 1 Baby 1 Outcome Date: 04/12/2017 Outcome: Live Outcome or Result: Vaginal Gender: Female Gest Age: 37 weeks Wt: 3033 g Hospital: [facility] Labor: -- Child's Name: -- Baby's Father: -- Comment: Tenzin EGA and LETY Gestational Age (EGA) and LETY * Note: EGA calculated as of 05/13/2020 LETY: 06/05/2020 EGA*: 36 weeks 5 days Type: Authoritative Method Date: 08/30/2019 Method: Last Menstrual Period (08/30/2019) Confirmation: Confirmed Description: -- Comments: -- Entered by: Kaylyn Lobo LPN on 10/24/2019 Other LETY Calculations for this : No additional LETY calculations have been recorded for this History of Present Illness ob visit Review of Systems Constitutional: No fever, No chills, No sweats, No weakness. Respiratory: No shortness of breath, No cough. Cardiovascular: No chest pain, Noperipheral edema. Physical Exam Vitals & Measurements T: 37.1 ?C (Temporal Artery) BP: 124/72 HT: 163 cm HT: 163.0 cm WT: 78.5 kg WT: 78.5 kg BMI: 29.55 Examinations Glucose Urine Dipstick: Negative Protein Urine Dipstick: Negative Weight Measured: 78.5 kg Systolic Blood Pressure: 124 mmHg Diastolic Blood Pressure: 72 mmHg D-EGA at Documented Date, Time: 36W 5D Fundal Height: 38 cm Labor Signs/Symptoms: Contractions Cervix Dilation: 3 cm Cervix Effacement: 70 Station: -3 Armijo's Score: 8 Baby A - Activity: Present per patient Baby A - FHR: 135 bpm Next Appointment: 1 week(s) Antepartum Comment: routine ob General Exam: Constitutional: alert, no acute distress, well hydrated, well developed, well nourished. Skin: normal color, no rashes, no lesions, no unusual bruising. Head: atraumatic, normocephalic. Eyes: EOM intact, no nystagmus, no icterus. Ears: no external deformities, gross hearing intact. Respiratory: no respiratory distress. Abdomen: gravid, nontender. Extremities: no deformities, no edema. Psych: oriented to all spheres, affect and mood appropriate, normal interaction, good eye contact. Assessment/Plan RTC 1 wk. Plan for induction at 39wks. Mood stable. GBS neg. 1. Supervision of normal in third trimester (Z34.93: Encounter for supervision of normal , unspecified, third trimester) Ordered: Office Visit Level 4 Est 70702 TH 2. Genital herpes simplex virus (HSV) infection in mother affecting (O98.319: Other infections with a predominantly sexual mode of transmission complicating , unspecified trimester) Ordered: Office Visit Level 4 Est 49007 TH 3. Depression during , antepartum (O99.340: Other mental disorders complicating , unspecified trimester) Ordered: Office Visit Level 4 Est 09463 TH 4. 36 weeks gestation of (Z3A.36: 36 weeks gestation of ) Ordered: Office Visit Level 4 Est 51925 TH Follow-up With When Contact Information Ludivina GARDNER MD In [address] [place] [address]- Additional Instructions: Problem List/Past Medical History Ongoing Depression during , antepartum Genital herpes simplex virus (HSV) infection in mother affecting Supervision of normal in third trimester Historical Procedure/Surgical History Tonsillectomy. 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 Never Smokeless Tobacco Use:., 05/13/2020 Family History Diabetes mellitus type 1: Grandparent. Hypertension: Grandparent. Lab Results Ambulatory Point of Care Results Glucose Urine Dipstick: Negative (05/13/20 13:18:00) Protein Urine Dipstick: Negative (05/13/20 13:18:00) Normal [facility] Comment on above: Result Comment: Elec tronically Signed By: Ludivina GARDNER MD\.br\Date and Time Signed: 05/13/20 13:59 EST Patient Educationon 05-13-20 20 Patient Education [facility] Score The score is a number given to a baby at 1 and 5 minutes after . The 1 minute score tells how well the baby survived the process. The 5 minute score tells how the baby is adapting to being outside of the womb. It is a standard way to exam babies before they leave the delivery room. The test is scored on 10 points. The highest score is 10. The lowest is 0. Both the tests are the same. They are the total of points from five observations: ACTIVITY ? 2 points if the baby is active, moving arms and legs. ? 1 point if the baby's arms are curled up and legs are bent. ? 0 points if the baby is limp. PULSE (HOW MANY TIMES THE HEART BEATS IN A MINUTE) ? 2 points if the pulse is over 100. A baby's heart is tiny, so it beats fast. ? 1 point if the pulse is 80-100. ? 0 points if the pulse is absent or below 80. GRIMACE ? 2 points if the baby coughs or pulls away when suctioned. ? 1 point if the baby makes a face when suctioned or touched. ? 0 points if the baby does not respond at all. APPEARANCE ? 2 points if the skin is the same color all over the body. ? 1 point if the arms and legs are a different, usually bluish color. ? 0 points if the baby is pale or bluish saldivar. RESPIRATION OR BREATHING ? 2 points if the baby is crying. ? 1 point if breathing is slow or weak. This can happen if the mother has had narcotics. ? 0 points if the baby is not breathing at all. Scores below 3 are critically low, scores 4 to 6 are fairly low, and scores 7 to 10 are normal. A low score in the first minute indicates that the baby needs some type of assistance. If the score remains low longer than 10 minutes there is a risk of the baby having neurological problems. Even babies with lower scores at 10 minutes tend to do well. The score does not predict intelligence, personality, or abilities. The Score is not used in babies that require immediate resuscitation. The ABC (airway, breathing, and circulation) emergency evaluation is used instead. Document Released: 09/13/2008 Document Revised: 03/01/2013 Document Reviewed: 09/13/2008 [employer]? Patient Information ?2013 [employer]. Epifanio [facility] US Follow Upon US Follow Up Exam Date/Time: 05/08/2020 09:19 EST Reason for Exam: Size - measuring standard growth/amniotic fluid volume Report IMPRESSION: SINGLE LIVE INTRAUTERINE CORRESPONDING TO APPROXIMATELY COMPOSITE ULTRASOUND AGE: 36 WEEKS, 1 DAYS. NO GROSS ABNORMALITY IDENTIFIED. US Follow Up: 05/08/2020 8:59 AM CLINICAL HISTORY: Size - measuring standard growth/amniotic fluid volume. . LMP: 08/30/2019 LETY from LMP: 06/05/2020 Gestational Age by LMP: 36 weeks, 0 days LETY (AUA): 06/04/2020 COMPOSITE ULTRASOUND AGE: 36 WEEKS, 1 DAYS COMPARISON: 04/11/2020. Transabdominal ultrasound of the gravid uterus was performed. FINDINGS: A single live intrauterine is noted in cephalic position. cardiac activity is measured at 125 bpm. PLACENTA: A grade 2-appearing placenta is posterior and fundal without evidence of placenta previa. The amniotic fluid volume appears within normal limits for gestation. Amniotic Fluid Index: 19.9 cm MEASUREMENTS: The following measurements were obtained: * Biparietal Diameter: 8.8 cm with the Growth Percentile Rank: 45.0 Percent * Head Circumference: 31.8 cm with the Growth Percentile Rank: 17.0 Percent * Abdominal Circumference: 33.5 cm with the Growth Percentile Rank: 90.0 Percent * Femur Length: 6.9 cm with the Growth Percentile Rank: 32.0 Percent * which corresponds to COMPOSITE ULTRASOUND AGE: 36 WEEKS, 1 DAYS. ESTIMATED WEIGHT: Estimated Weight: 2961.2 (grams) Report Estimated Weight: 6lbs 8.5ozs (lbs/oz) EFW growth percentile rank: 66 (Percent) EFW AUA Percentile: 62.5 (Percent) EFW LMP Percentile: 66.1 (Percent) A full anatomy survey was not performed. FINAL REPORT Dictated: 05/10/2020 1:24 pm Ishaan Fonseca M.D. Signed (Electronic Signature): 05/10/2020 1:24 pm Signed by: Ishaan Fonseca M.D. Transcribed by: [place] Technologist: MIKEY Technical Comments LMP : 08/30/19 LETY 06/05/20 LETY Obtained LETY by LMP GA 36w0d History 2 Para 1 Transabdominal Ultrasound Performed Placenta Location posterior, fundal Placenta Grade 2 Amniotic Fluid Volume High Normal Normal [facility] Group B Strep by PCRon 05-09 Group B Strep by PCR Specimen Negative for Group B Streptococcus by DNA amplification. Normal Negative [facility] Comment on above: Performed By: #### S ARS-CoV-2, TASNEEM, [id number] #### [facility] [address] [place] [address] Group B Strep colonization by PCR Negative Normal Negative [facility] Comment on above: Performed By: #### S ARS-CoV-2, TASNEEM, [id number] #### [facility] [address] [place] [address] Ambulatory Clinical Summaryo n 05-08-2020 Ambulatory Clinical Summary {[id number] D:[id number] Normal [facility] Ambulatory Clinical Summary {[id number] Normal [facility] Obstetrics Office/Clinic Not john 05-08-2020 Obstetrics Office/Clinic Note Chief Complaint OB visit 36 weeks, headaches, [place], GBS today. Obstetric History History (0,0,0,1) # 1 Baby 1 Outcome Date: 04/12/2017 Outcome: Live Outcome or Result: Vaginal Gender: Female Gest Age: 37 weeks Wt: 3033 g Hospital: [facility] Labor: -- Child's Name: -- Baby's Father: -- Comment: Tenzin EGA and LETY Gestational Age (EGA) and LETY * Note: EGA calculated as of 05/08/2020 LETY: 06/05/2020 EGA*: 36 weeks Type: Authoritative Method Date: 08/30/2019 Method: Last Menstrual Period (08/30/2019) Confirmation: Confirmed Description: -- Comments: -- Entered by: Kaylyn Lobo LPN on 10/24/2019 Other LETY Calculations for this : No additional LETY calculations have been recorded for this History of Present Illness 24 y/o here for appt following growth US. Per mammography supervisor: FHR 125, SHANTELLE 19.9, EFW 66%, 6lbs 8oz, AC 90%. She has been having mago carballo contractions. Frequency varies. She has some at least once a day, feels like severe period cramp. She feels like she is starting to lose her mucous plug. She started on the antivirals. Review of Systems Constitutional: No fever, No chills, No headache. Skin: No rash, No lesions. Respiratory: No shortness of breath. Cardiovascular: No peripheral edema. Gastrointestinal: No nausea, No vomiting, Noheartburn, No diarrhea, No constipation. Genitourinary: No dysuria. Gynecology: No abnormal vaginal discharge, No vaginal itching/burning, No bleeding, No leaking of fluid. Physical Exam Vitals & Measurements BP: 122/74 HT: 163 cm HT: 163.0 cm WT: 77.7 kg WT: 77.7 kg BMI: 29.24 Examinations Glucose Urine Dipstick: Negative Protein Urine Dipstick: Negative Weight Measured: 77.7 kg Systolic Blood Pressure: 122 mmHg Diastolic Blood Pressure: 74 mmHg D-EGA at Documented Date, Time: 36 weeks Labor Signs/Symptoms: Cramps Cervix Dilation: 2 cm Cervix Effacement: 50 Station: -3 Armijo's Score: 3 Baby A - Activity: Present per patient Baby A - FHR: 125 bpm Next Appointment: 1 week(s) Antepartum Comment: gbs done. growth today. SHANTELLE 19.9, EFW 66%, 6lbs 8oz, AC 90%. General Exam: Constitutional: alert, no acute distress, well hydrated, well developed, well nourished. Skin: normal color, no rashes, no lesions, no unusual bruising. Head: atraumatic, normocephalic. Eyes: EOM intact, no nystagmus, no icterus. Ears: no external deformities, gross hearing intact. Respiratory: no respiratory distress. Abdomen: gravid, nontender. Extremities: no deformities, no edema. Psych: oriented to all spheres, affect and mood appropriate, normal interaction, good eye contact. Assessment/Plan 1. Depression during , antepartum (O99.340: Other mental disorders complicating , unspecified trimester) Stable. Ordered: Office Visit Level 3 Est 11713 TH 2. Supervision of normal in third trimester (Z34.93: Encounter for supervision of normal , unspecified, third trimester) Follow up in [address] Gardner. Ordered: Group B Streptococcus colonization by PCR Office Visit Level 3 Est 49129 TH 3. 36 weeks gestation of (Z3A.36: 36 weeks gestation of ) Ordered: Office Visit Level 3 Est 19094 TH 4. Genital herpes simplex virus (HSV) infection in mother affecting (O98.319: Other infections with a predominantly sexual mode of transmission complicating , unspecified trimester) Start on antivirals. Ordered: Office Visit Level 3 Est 61476 TH Follow-up With When Contact Information [facility] In [address] [place] [address]- Additional Instructions: Problem List/Past Medical History Ongoing Depression during , antepartum Genital herpes simplex virus (HSV) infection in mother affecting Supervision of normal in third trimester Historical Procedure/Surgical History Tonsillectomy. 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 Never Smokeless Tobacco Use:., 05/08/2020 Family History Diabetes mellitus type 1: Grandparent. Hypertension: Grandparent. Lab Results Ambulatory Point of Care Results Glucose Urine Dipstick: Negative (05/08/20 08:57:00) Protein Urine Dipstick: Negative (05/08/20 08:57:00) Normal [facility] Comment on above: Result Comment: Elec tronically Signed By: Silvia MURDOCK\.portillo\Date and Time Signed: 05/08/20 10:11 EST Patient Educationon 05-08-20 20 Patient Education Family Medicine How a Baby Grows During begins when the male's sperm enters the female's egg. This happens in the fallopian tube and is called fertilization. The fertilized egg is called an embryo until it reaches 9 weeks from the time of fertilization. From 9 weeks until it is called a fetus. The fertilized egg moves down the tube into the uterus and attaches to the inside lining of the uterus. The woman is responsible for the growth of the embryo/fetus by supplying nourishment and oxygen through the blood stream and placenta to the developing fetus. The uterus becomes larger and pops out from the abdomen more and more as the fetus develops and grows. A normal lasts 280 days, with a range of 259 to 294 days, or 40 weeks. The is divided up into three trimesters: ? First trimester - 0 to 13 weeks. ? Second trimester - 14 to 27 weeks. ? Third trimester - 28 to 40 weeks. The day your baby is supposed to be born is called estimated date of confinement (EDC) or estimated date of delivery (LETY). GROWTH OF THE BABY MONTH BY MONTH 1. First Month: The fertilized egg attaches to the inside of the uterus and certain cells will form the placenta and others will develop into the fetus. The arms, legs, brain, spinal cord, lungs, and heart begin to develop. At the end of the first month the heart begins to beat. The embryo weighs less than an ounce and is ? inch long. 2. Second Month: The bones can be seen, the inner ear, eye lids, hands and feet form and genitals develop. By the end of 8 weeks, all of the major organs are developing. The fetus now weighs less than an ounce and is one inch (2.54 cm) long. 3. Third Month: Teeth buds appear, all the internal organs are forming, bones and muscles begin to grow, the spine can flex and the skin is transparent. Finger and toe nails begin to form, the hands develop faster than the feet and the arms are longer than the legs at this point. The fetus weighs a little more than an ounce (0.03 kg) and is 3? inches (8.89cm) long. 4. Fourth Month: The placenta is completely formed. The external sex organs, neck, outer ear, eyebrows, eyelids and fingernails are formed. The fetus can hear, swallow, flex its arms and legs and the kidney begins to produce urine. The skin is covered with a white waxy coating (vernix ) and very thin hair (lanugo ) is present. The fetus weighs 5 ounces (0.14kg) and is 6 to 7 inches (16.51cm) long. 5. Fifth Month: The fetus moves around more and can be felt for the first time (called quickening ), sleeps and wakes up at times, may begin to suck its finger and the nails grow to the end of the fingers. The gallbladder is now functioning and helps to digest the nutrients, eggs are formed in the female and the testicles begin to drop down from the abdomen to the scrotum in the male. The fetus weighs ? to 1 pound (0.45kg) and is 10 inches (25.4cm) long. 6. Sixth Month: The lungs are formed but the fetus does not breath yet. The eyes open, the brain develops more quickly at this time, one can detect finger and toe prints and thicker hair grows. The fetus weighs 1 to 1? pounds (0.68kg) and is 12 inches (30.48cm) long. 7. Seventh Month: The fetus can hear and respond to sounds, kicks and stretches and can sense changes in light. The fetus weighs 2 to 2? pounds (1.13kg) and is 14 inches (35.56cm) long. 8. Eight Month: All organs and body systems are fully developed and functioning. The bones get harder, taste buds develop and can taste sweet and sour flavors and the fetus may hiccup now. Different parts of the brain are developing and the skull remains soft for the brain to grow. The fetus weighs 5 pounds (2.27kg) and is 18 inches (45.75cm) long. 9. Ninth Month: The fetus gains about a half a pound a week, the lungs are fully developed, patterns of sleep develop and the head moves down into the bottom of the uterus called vertex. If the buttocks moves into the bottom of the uterus, it is called a breech. The fetus weighs 6 to 9 pounds (2.72 to 4.08kg) and is 20 inches (50.8cm) long. You should be informed about your , yourself and how the baby is developing as much as possible. Being informed helps you to enjoy this experience. It also gives you the sense to feel if something is not going right and when to ask questions. Talk to your caregiver when you have questions about your baby or your own body. Document Released: 11/23/2008 Document Revised: 08/29/2012 Document Reviewed: 11/23/2008 ExitCare? Patient Information ?2013 [employer]. [facility] Ambulatory Clinical Summaryo n 04-25-2020 Ambulatory Clinical Summary {[id number] [facility] Obstetrics Office/Clinic Not john 04-25-2020 Obstetrics Office/Clinic Note Chief Complaint OB visit 34 weeks 1 day, Obstetric History History (0,0,0,1) # 1 Baby 1 Outcome Date: 04/12/2017 Outcome: Live Outcome or Result: Vaginal Gender: Female Gest Age: 37 weeks Wt: 3033 g Hospital: [facility] Labor: -- Child's Name: -- Baby's Father: -- Comment: Tenzin EGA and LETY Gestational Age (EGA) and LETY * Note: EGA calculated as of 04/25/2020 LETY: 06/05/2020 EGA*: 34 weeks 1 day Type: Authoritative Method Date: 08/30/2019 Method: Last Menstrual Period (08/30/2019) Confirmation: Confirmed Description: -- Comments: -- Entered by: Kaylyn Lobo LPN on 10/24/2019 Other LETY Calculations for this : No additional LETY calculations have been recorded for this History of Present Illness 24 y/o here for visit. Active movement. Denies ctx. TUMS for heartburn here and there. Tylenol for headaches. Review of Systems Constitutional: No fever, No chills, Yes headache. Skin: No rash, No lesions. Respiratory: No shortness of breath. Cardiovascular: No peripheral edema. Gastrointestinal: No nausea, No vomiting, Yesheartburn, No diarrhea, No constipation. Genitourinary: No dysuria. Gynecology: No abnormal vaginal discharge, No vaginal itching/burning, No bleeding, No leaking of fluid. Physical Exam Vitals & Measurements T: 36.7 ?C (Temporal Artery) BP: 122/70 HT: 163.0 cm HT: 163.0 cm WT: 78.1 kg WT: 78.1 kg BMI: 29.4 Examinations Glucose Urine Dipstick: Negative Protein Urine Dipstick: Negative Weight Measured: 78.1 kg Systolic Blood Pressure: 122 mmHg Diastolic Blood Pressure: 70 mmHg D-EGA at Documented Date, Time: 34W 1D Fundal Height: 39 cm Labor Signs/Symptoms: None Baby A - Activity: Present per patient Baby A - FHR: 152 bpm Next Appointment: 2 week(s) Antepartum Comment: growth & GBS next time. General Exam: Constitutional: alert, no acute distress, well hydrated, well developed, well nourished. Skin: normal color, no rashes, no lesions, no unusual bruising. Head: atraumatic, normocephalic. Eyes: EOM intact, no nystagmus, no icterus. Ears: no external deformities, gross hearing intact. Respiratory: no respiratory distress. Abdomen: gravid, nontender. Extremities: no deformities, no edema. Psych: oriented to all spheres, affect and mood appropriate, normal interaction, good eye contact. Assessment/Plan 1. Depression during , antepartum (O99.340: Other mental disorders complicating , unspecified trimester) Stable. Ordered: Office Visit Level 3 Est 00348 TH 2. Supervision of normal in third trimester (Z34.93: Encounter for supervision of normal , unspecified, third trimester) Follow up in 2 weeks for appt and growth US. Ordered: Office Visit Level 3 Est 92917 TH Follow Up 3. 34 weeks gestation of (Z3A.34: 34 weeks gestation of ) Ordered: Office Visit Level 3 Est 40527 TH 4. Genital herpes simplex virus (HSV) infection in mother affecting (O98.319: Other infections with a predominantly sexual mode of transmission complicating , unspecified trimester) Plan to start antivirals @ 36 wks. Ordered: Office Visit Level 3 Est 29872 TH Orders: valacyclovir, 500 mg = 1 tab(s), Oral, q12hr, # 30 tab(s), Refills(s) 1, Pharmacy: [facility], 163, cm, 04/25/20 11:47:00 EST, Height/Length Dosing, 78.1, kg, 04/25/20 11:47:00 EST, Weight Dosing Follow-up With When Contact Information [facility] In [address] [place] [address]- Additional Instructions: Problem List/Past Medical History Ongoing Depression during , antepartum Genital herpes simplex virus (HSV) infection in mother affecting Supervision of normal in third trimester Historical Procedure/Surgical History Tonsillectomy. 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 Never Smokeless Tobacco Use:., 04/25/2020 Family History Diabetes mellitus type 1: Grandparent. Hypertension: Grandparent. Lab Results Ambulatory Point of Care Results Glucose Urine Dipstick: Negative (04/25/20 12:04:51) Protein Urine Dipstick: Negative (04/25/20 12:04:51) Normal [facility] Comment on above: Result Comment: Elec tronically Signed By: Silvia MURDOCK\.portillo\Date and Time Signed: 04/25/20 12:07 EST Patient Educationon 04-25-20 Patient Education Family Medicine How a Baby Grows During begins when the male's sperm enters the female's egg. This happens in the fallopian tube and is called fertilization. The fertilized egg is called an embryo until it reaches 9 weeks from the time of fertilization. From 9 weeks until it is called a fetus. The fertilized egg moves down the tube into the uterus and attaches to the inside lining of the uterus. The woman is responsible for the growth of the embryo/fetus by supplying nourishment and oxygen through the blood stream and placenta to the developing fetus. The uterus becomes larger and pops out from the abdomen more and more as the fetus develops and grows. A normal lasts 280 days, with a range of 259 to 294 days, or 40 weeks. The is divided up into three trimesters: ? First trimester - 0 to 13 weeks. ? Second trimester - 14 to 27 weeks. ? Third trimester - 28 to 40 weeks. The day your baby is supposed to be born is called estimated date of confinement (EDC) or estimated date of delivery (LETY). GROWTH OF THE BABY MONTH BY MONTH 1. First Month: The fertilized egg attaches to the inside of the uterus and certain cells will form the placenta and others will develop into the fetus. The arms, legs, brain, spinal cord, lungs, and heart begin to develop. At the end of the first month the heart begins to beat. The embryo weighs less than an ounce and is ? inch long. 2. Second Month: The bones can be seen, the inner ear, eye lids, hands and feet form and genitals develop. By the end of 8 weeks, all of the major organs are developing. The fetus now weighs less than an ounce and is one inch (2.54 cm) long. 3. Third Month: Teeth buds appear, all the internal organs are forming, bones and muscles begin to grow, the spine can flex and the skin is transparent. Finger and toe nails begin to form, the hands develop faster than the feet and the arms are longer than the legs at this point. The fetus weighs a little more than an ounce (0.03 kg) and is 3? inches (8.89cm) long. 4. Fourth Month: The placenta is completely formed. The external sex organs, neck, outer ear, eyebrows, eyelids and fingernails are formed. The fetus can hear, swallow, flex its arms and legs and the kidney begins to produce urine. The skin is covered with a white waxy coating (vernix ) and very thin hair (lanugo ) is present. The fetus weighs 5 ounces (0.14kg) and is 6 to 7 inches (16.51cm) long. 5. Fifth Month: The fetus moves around more and can be felt for the first time (called quickening ), sleeps and wakes up at times, may begin to suck its finger and the nails grow to the end of the fingers. The gallbladder is now functioning and helps to digest the nutrients, eggs are formed in the female and the testicles begin to drop down from the abdomen to the scrotum in the male. The fetus weighs ? to 1 pound (0.45kg) and is 10 inches (25.4cm) long. 6. Sixth Month: The lungs are formed but the fetus does not breath yet. The eyes open, the brain develops more quickly at this time, one can detect finger and toe prints and thicker hair grows. The fetus weighs 1 to 1? pounds (0.68kg) and is 12 inches (30.48cm) long. 7. Seventh Month: The fetus can hear and respond to sounds, kicks and stretches and can sense changes in light. The fetus weighs 2 to 2? pounds (1.13kg) and is 14 inches (35.56cm) long. 8. Eight Month: All organs and body systems are fully developed and functioning. The bones get harder, taste buds develop and can taste sweet and sour flavors and the fetus may hiccup now. Different parts of the brain are developing and the skull remains soft for the brain to grow. The fetus weighs 5 pounds (2.27kg) and is 18 inches (45.75cm) long. 9. Ninth Month: The fetus gains about a half a pound a week, the lungs are fully developed, patterns of sleep develop and the head moves down into the bottom of the uterus called vertex. If the buttocks moves into the bottom of the uterus, it is called a breech. The fetus weighs 6 to 9 pounds (2.72 to 4.08kg) and is 20 inches (50.8cm) long. You should be informed about your , yourself and how the baby is developing as much as possible. Being informed helps you to enjoy this experience. It also gives you the sense to feel if something is not going right and when to ask questions. Talk to your caregiver when you have questions about your baby or your own body. Document Released: 11/23/2008 Document Revised: 08/29/2012 Document Reviewed: 11/23/2008 ExitCare? Patient Information ?2013 [employer]. [facility] Follow Upon Follow Up Exam Date/Time: 04/11/2020 10:21 EDT Reason for Exam: EFW large on previous US, and S>D on fundal heights; Size - measuring standard growth/ amniotic fluid volume Report IMPRESSION: SINGLE LIVE INTRAUTERINE CORRESPONDING TO APPROXIMATELY COMPOSITE ULTRASOUND AGE: 33 WEEKS, 6 DAYS. US Follow Up: 04/11/2020 9:53 AM CLINICAL HISTORY: Size - measuring standard growth/amniotic fluid volume, EFW large on previous US, and S>D on fundal heights. . LMP: 08/30/2019 LETY from LMP: 06/05/2020 Gestational Age by LMP: 32 weeks, 1 days LETY (AUA): 05/24/2020 COMPOSITE ULTRASOUND AGE: 33 WEEKS, 6 DAYS COMPARISON: 01/03/2020. Transabdominal ultrasound of the gravid uterus was performed. FINDINGS: A single live intrauterine is noted in cephalic position. cardiac activity is measured at 135 bpm. PLACENTA: A grade 1-appearing placenta is posterior without evidence of placenta previa. The amniotic fluid volume appears within normal limits for gestation. Amniotic Fluid Index: 21.3 cm MEASUREMENTS: The following measurements were obtained: * Biparietal Diameter: 8.5 cm with the Growth Percentile Rank: 91.0 Percent * Head Circumference: 31.7 cm with the Growth Percentile Rank: 93.0 Percent * Abdominal Circumference: 30.1 cm with the Growth Percentile Rank: 92.0 Percent * Femur Length: 6.0 cm with the Growth Percentile Rank: 16.0 Percent * which corresponds to COMPOSITE ULTRASOUND AGE: 33 WEEKS, 6 DAYS. ESTIMATED WEIGHT: Estimated Weight: 2187.2 (grams) Estimated Weight: 4lbs 13.2ozs (lbs/oz) Report EFW growth percentile rank: 79 (Percent) EFW AUA Percentile: 29.9 (Percent) EFW LMP Percentile: 79.2 (Percent) The estimated weight is within normal limits. There are growth parameters (BPD, HC, AC) that are greater than 90th percentile. A full anatomy survey was not performed. FINAL REPORT Dictated: 04/12/2020 3:35 pm Ishaan Fonseca M.D. Signed (Electronic Signature): 04/12/2020 3:35 pm Signed by: Ishaan Fonseca M.D. Transcribed by: LUIS Technologist: MIKEY Technical Comments LMP : 08/30/19 LETY 06/05/20 LETY Obtained LETY by LMP GA 32w1d History 2 Para 1 Transabdominal Ultrasound Performed Placenta Location posterior Placenta Grade 1 Positioning Vertex Amniotic Fluid Volume High Normal Normal [facility] Ambulatory Clinical Summaryo n 04-11-2020 Ambulatory Clinical Summary {[id number] Normal [facility] Obstetrics Office/Clinic Not john 04-11-2020 Obstetrics Office/Clinic Note Chief Complaint OB 32w 1d, baby moving, swelling fingers Obstetric History History (0,0,0,1) # 1 Baby 1 Outcome Date: 04/12/2017 Outcome: Live Outcome or Result: Vaginal Gender: Female Gest Age: 37 weeks Wt: 3033 g Hospital: [facility] Labor: -- Child's Name: -- Baby's Father: -- Comment: Stephenle EGA and LETY Gestational Age (EGA) and LETY * Note: EGA calculated as of 04/11/2020 LETY: 06/05/2020 EGA*: 32 weeks 1 day Type: Authoritative Method Date: 08/30/2019 Method: Last Menstrual Period (08/30/2019) Confirmation: Confirmed Description: -- Comments: -- Entered by: Kaylyn Lobo LPN on 10/24/2019 Other LETY Calculations for this : No additional LETY calculations have been recorded for this History of Present Illness ob visit Review of Systems Constitutional: No fever, No chills, No sweats, No weakness. Respiratory: No shortness of breath, No cough. Cardiovascular: No chest pain, Noperipheral edema. Physical Exam Vitals & Measurements T: 36.8 ?C (Temporal Artery) BP: 120/74 HT: 163 cm HT: 163.0 cm WT: 77.7 kg WT: 77.7 kg BMI: 29.24 Examinations Glucose Urine Dipstick: Negative Protein Urine Dipstick: Negative Weight Measured: 77.7 kg Systolic Blood Pressure: 120 mmHg Diastolic Blood Pressure: 74 mmHg D-EGA at Documented Date, Time: 32W 1D Fundal Height: 38 cm Labor Signs/Symptoms: None Baby A - Activity: Present per patient Baby A - FHR: 135 bpm Next Appointment: 2 week(s) Antepartum Comment: EFW 79%, but BPD 91%, HC 93%, AC 92%, FL 16%. SHANTELLE 21.3cm. Will repeat at 36wks General Exam: Constitutional: alert, no acute distress, well hydrated, well developed, well nourished. Skin: normal color, no rashes, no lesions, no unusual bruising. Head: atraumatic, normocephalic. Eyes: EOM intact, no nystagmus, no icterus. Ears: no external deformities, gross hearing intact. Respiratory: no respiratory distress. Abdomen: gravid, nontender. Extremities: no deformities, no edema. Psych: oriented to all spheres, affect and mood appropriate, normal interaction, good eye contact. Assessment/Plan RTC 2 wks 1. Supervision of normal in third trimester (Z34.93: Encounter for supervision of normal , unspecified, third trimester) Ordered: Office Visit Level 3 Est 68974 TH 2. Genital herpes simplex virus (HSV) infection in mother affecting (O98.319: Other infections with a predominantly sexual mode of transmission complicating , unspecified trimester) Ordered: Office Visit Level 3 Est 84676 3. Depression during , antepartum (O99.340: Other mental disorders complicating , unspecified trimester) Ordered: Office Visit Level 3 Est 22836 TH 4. 32 weeks gestation of (Z3A.32: 32 weeks gestation of ) Ordered: Office Visit Level 3 Est 03163 Follow-up With When Contact Information Ludivina GARDNER MD In [address] [place] [address]- Additional Instructions: Problem List/Past Medical History Ongoing Depression during , antepartum Genital herpes simplex virus (HSV) infection in mother affecting Supervision of normal in third trimester Historical Procedure/Surgical History Tonsillectomy. 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 Never Smokeless Tobacco Use:., 04/11/2020 Family History Diabetes mellitus type 1: Grandparent. Hypertension: Grandparent. Lab Results Ambulatory Point of Care Results Glucose Urine Dipstick: Negative (04/11/20 10:13:00) Protein Urine Dipstick: Negative (04/11/20 10:13:00) Normal [facility] Comment on above: Result Comment: Elec tronically Signed By: TAWANDA SARMIENTO, Ludivina Kat.portillo\Date and Time Signed: 04/11/20 10:48 EDT Patient Educationon 04-11-20 20 Patient Education Family Medicine How a Baby Grows During begins when the male's sperm enters the female's egg. This happens in the fallopian tube and is called fertilization. The fertilized egg is called an embryo until it reaches 9 weeks from the time of fertilization. From 9 weeks until it is called a fetus. The fertilized egg moves down the tube into the uterus and attaches to the inside lining of the uterus. The woman is responsible for the growth of the embryo/fetus by supplying nourishment and oxygen through the blood stream and placenta to the developing fetus. The uterus becomes larger and pops out from the abdomen more and more as the fetus develops and grows. A normal lasts 280 days, with a range of 259 to 294 days, or 40 weeks. The is divided up into three trimesters: ? First trimester - 0 to 13 weeks. ? Second trimester - 14 to 27 weeks. ? Third trimester - 28 to 40 weeks. The day your baby is supposed to be born is called estimated date of confinement (EDC) or estimated date of delivery (LETY). GROWTH OF THE BABY MONTH BY MONTH 1. First Month: The fertilized egg attaches to the inside of the uterus and certain cells will form the placenta and others will develop into the fetus. The arms, legs, brain, spinal cord, lungs, and heart begin to develop. At the end of the first month the heart begins to beat. The embryo weighs less than an ounce and is ? inch long. 2. Second Month: The bones can be seen, the inner ear, eye lids, hands and feet form and genitals develop. By the end of 8 weeks, all of the major organs are developing. The fetus now weighs less than an ounce and is one inch (2.54 cm) long. 3. Third Month: Teeth buds appear, all the internal organs are forming, bones and muscles begin to grow, the spine can flex and the skin is transparent. Finger and toe nails begin to form, the hands develop faster than the feet and the arms are longer than the legs at this point. The fetus weighs a little more than an ounce (0.03 kg) and is 3? inches (8.89cm) long. 4. Fourth Month: The placenta is completely formed. The external sex organs, neck, outer ear, eyebrows, eyelids and fingernails are formed. The fetus can hear, swallow, flex its arms and legs and the kidney begins to produce urine. The skin is covered with a white waxy coating (vernix ) and very thin hair (lanugo ) is present. The fetus weighs 5 ounces (0.14kg) and is 6 to 7 inches (16.51cm) long. 5. Fifth Month: The fetus moves around more and can be felt for the first time (called quickening ), sleeps and wakes up at times, may begin to suck its finger and the nails grow to the end of the fingers. The gallbladder is now functioning and helps to digest the nutrients, eggs are formed in the female and the testicles begin to drop down from the abdomen to the scrotum in the male. The fetus weighs ? to 1 pound (0.45kg) and is 10 inches (25.4cm) long. 6. Sixth Month: The lungs are formed but the fetus does not breath yet. The eyes open, the brain develops more quickly at this time, one can detect finger and toe prints and thicker hair grows. The fetus weighs 1 to 1? pounds (0.68kg) and is 12 inches (30.48cm) long. 7. Seventh Month: The fetus can hear and respond to sounds, kicks and stretches and can sense changes in light. The fetus weighs 2 to 2? pounds (1.13kg) and is 14 inches (35.56cm) long. 8. Eight Month: All organs and body systems are fully developed and functioning. The bones get harder, taste buds develop and can taste sweet and sour flavors and the fetus may hiccup now. Different parts of the brain are developing and the skull remains soft for the brain to grow. The fetus weighs 5 pounds (2.27kg) and is 18 inches (45.75cm) long. 9. Ninth Month: The fetus gains about a half a pound a week, the lungs are fully developed, patterns of sleep develop and the head moves down into the bottom of the uterus called vertex. If the buttocks moves into the bottom of the uterus, it is called a breech. The fetus weighs 6 to 9 pounds (2.72 to 4.08kg) and is 20 inches (50.8cm) long. You should be informed about your , yourself and how the baby is developing as much as possible. Being informed helps you to enjoy this experience. It also gives you the sense to feel if something is not going right and when to ask questions. Talk to your caregiver when you have questions about your baby or your own body. Document Released: 11/23/2008 Document Revised: 08/29/2012 Document Reviewed: 11/23/2008 ExitCare? Patient Information ?2013 [employer]. [facility] Ambulatory Clinical Summaryo n 03-28-2020 Ambulatory Clinical Summary {[id number] Normal [facility] Obstetrics Office/Clinic Not john 03-28-2020 Obstetrics Office/Clinic Note Chief Complaint OB 30w 1d, baby moving, nausea Obstetric History History (0,0,0,1) # 1 Baby 1 Outcome Date: 04/12/2017 Outcome: Live Outcome or Result: Vaginal Gender: Female Gest Age: 37 weeks Wt: 3033 g Hospital: [facility] Labor: -- Child's Name: -- Baby's Father: -- Comment: Tenzin EGA and LETY Gestational Age (EGA) and LETY * Note: EGA calculated as of 03/28/2020 LETY: 06/05/2020 EGA*: 30 weeks 1 day Type: Authoritative Method Date: 08/30/2019 Method: Last Menstrual Period (08/30/2019) Confirmation: Confirmed Description: -- Comments: -- Entered by: Kaylyn Lobo LPN on 10/24/2019 Other LETY Calculations for this : No additional LETY calculations have been recorded for this History of Present Illness ob visit Review of Systems Constitutional: No fever, No chills, No sweats, No weakness. Respiratory: No shortness of breath, No cough. Cardiovascular: No chest pain, Noperipheral edema. Physical Exam Vitals & Measurements T: 36.9 ?C (Temporal Artery) BP: 120/72 HT: 163.0 cm HT: 163 cm WT: 76.8 kg WT: 76.8 kg BMI: 28.91 Examinations Glucose Urine Dipstick: Negative Protein Urine Dipstick: Negative Weight Measured: 76.8 kg Systolic Blood Pressure: 120 mmHg Diastolic Blood Pressure: 72 mmHg D-EGA at Documented Date, Time: 30W 1D Fundal Height: 33 cm Labor Signs/Symptoms: None Baby A - Activity: Present per patient Baby A - FHR: 120 bpm Next Appointment: 2 week(s) Antepartum Comment: Has growth US in 2 wks; needs HSV suppression at 36wks General Exam: Constitutional: alert, no acute distress, well hydrated, well developed, well nourished. Skin: normal color, no rashes, no lesions, no unusual bruising. Head: atraumatic, normocephalic. Eyes: EOM intact, no nystagmus, no icterus. Ears: no external deformities, gross hearing intact. Respiratory: no respiratory distress. Abdomen: gravid, nontender. Extremities: no deformities, no edema. Psych: oriented to all spheres, affect and mood appropriate, normal interaction, good eye contact. Assessment/Plan RTC 2 wks with US to f/u growth due to measuring large previously. 1. Supervision of normal in third trimester (Z34.93: Encounter for supervision of normal , unspecified, third trimester) Ordered: Office Visit Level 3 Est 68487 TH 2. Genital herpes simplex virus (HSV) infection in mother affecting (O98.319: Other infections with a predominantly sexual mode of transmission complicating , unspecified trimester) Needs suppression at 36 wks Ordered: Office Visit Level 3 Est 26032 TH 3. Depression during , antepartum (O99.340: Other mental disorders complicating , unspecified trimester) Stable Ordered: Office Visit Level 3 Est 45452 TH 4. 30 weeks gestation of (Z3A.30: 30 weeks gestation of ) Ordered: Office Visit Level 3 Est 64372 TH Follow-up With When Contact Information Ludivina GARDNER MD In [address] [place] [address] Additional Instructions: Problem List/Past Medical History Ongoing Depression during , antepartum Genital herpes simplex virus (HSV) infection in mother affecting Supervision of normal in third trimester Historical Procedure/Surgical History Tonsillectomy. 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 Never Smokeless Tobacco Use:., 03/28/2020 Family History Diabetes mellitus type 1: Grandparent. Hypertension: Grandparent. Lab Results Ambulatory Point of Care Results Glucose Urine Dipstick: Negative (03/28/20 09:43:00) Protein Urine Dipstick: Negative (03/28/20 09:43:00) Normal [facility] Comment on above: Result Comment: Elec tronically Signed By: Ludivina GARDNER MD\.br\Date and Time Signed: 03/28/20 10:04 EDT Patient Educationon 10-08-20 20 Patient Education Family Medicine How a Baby Grows During begins when the male's sperm enters the female's egg. This happens in the fallopian tube and is called fertilization. The fertilized egg is called an embryo until it reaches 9 weeks from the time of fertilization. From 9 weeks until it is called a fetus. The fertilized egg moves down the tube into the uterus and attaches to the inside lining of the uterus. The woman is responsible for the growth of the embryo/fetus by supplying nourishment and oxygen through the blood stream and placenta to the developing fetus. The uterus becomes larger and pops out from the abdomen more and more as the fetus develops and grows. A normal lasts 280 days, with a range of 259 to 294 days, or 40 weeks. The is divided up into three trimesters: ? First trimester - 0 to 13 weeks. ? Second trimester - 14 to 27 weeks. ? Third trimester - 28 to 40 weeks. The day your baby is supposed to be born is called estimated date of confinement (EDC) or estimated date of delivery (LETY). GROWTH OF THE BABY MONTH BY MONTH 1. First Month: The fertilized egg attaches to the inside of the uterus and certain cells will form the placenta and others will develop into the fetus. The arms, legs, brain, spinal cord, lungs, and heart begin to develop. At the end of the first month the heart begins to beat. The embryo weighs less than an ounce and is ? inch long. 2. Second Month: The bones can be seen, the inner ear, eye lids, hands and feet form and genitals develop. By the end of 8 weeks, all of the major organs are developing. The fetus now weighs less than an ounce and is one inch (2.54 cm) long. 3. Third Month: Teeth buds appear, all the internal organs are forming, bones and muscles begin to grow, the spine can flex and the skin is transparent. Finger and toe nails begin to form, the hands develop faster than the feet and the arms are longer than the legs at this point. The fetus weighs a little more than an ounce (0.03 kg) and is 3? inches (8.89cm) long. 4. Fourth Month: The placenta is completely formed. The external sex organs, neck, outer ear, eyebrows, eyelids and fingernails are formed. The fetus can hear, swallow, flex its arms and legs and the kidney begins to produce urine. The skin is covered with a white waxy coating (vernix ) and very thin hair (lanugo ) is present. The fetus weighs 5 ounces (0.14kg) and is 6 to 7 inches (16.51cm) long. 5. Fifth Month: The fetus moves around more and can be felt for the first time (called quickening ), sleeps and wakes up at times, may begin to suck its finger and the nails grow to the end of the fingers. The gallbladder is now functioning and helps to digest the nutrients, eggs are formed in the female and the testicles begin to drop down from the abdomen to the scrotum in the male. The fetus weighs ? to 1 pound (0.45kg) and is 10 inches (25.4cm) long. 6. Sixth Month: The lungs are formed but the fetus does not breath yet. The eyes open, the brain develops more quickly at this time, one can detect finger and toe prints and thicker hair grows. The fetus weighs 1 to 1? pounds (0.68kg) and is 12 inches (30.48cm) long. 7. Seventh Month: The fetus can hear and respond to sounds, kicks and stretches and can sense changes in light. The fetus weighs 2 to 2? pounds (1.13kg) and is 14 inches (35.56cm) long. 8. Eight Month: All organs and body systems are fully developed and functioning. The bones get harder, taste buds develop and can taste sweet and sour flavors and the fetus may hiccup now. Different parts of the brain are developing and the skull remains soft for the brain to grow. The fetus weighs 5 pounds (2.27kg) and is 18 inches (45.75cm) long. 9. Ninth Month: The fetus gains about a half a pound a week, the lungs are fully developed, patterns of sleep develop and the head moves down into the bottom of the uterus called vertex. If the buttocks moves into the bottom of the uterus, it is called a breech. The fetus weighs 6 to 9 pounds (2.72 to 4.08kg) and is 20 inches (50.8cm) long. You should be informed about your , yourself and how the baby is developing as much as possible. Being informed helps you to enjoy this experience. It also gives you the sense to feel if something is not going right and when to ask questions. Talk to your caregiver when you have questions about your baby or your own body. Document Released: 11/23/2008 Document Revised: 08/29/2012 Document Reviewed: 11/23/2008 ExitCare? Patient Information ?2013 [employer]. Normal [facility] Ambulatory Clinical Summaryo n 02-29-2020 Ambulatory Clinical Summary {[id number] Normal [facility] Obstetrics Office/Clinic Not john 02-29-2020 Obstetrics Office/Clinic Note Chief Complaint OB 26w 1d, baby moving, nausea Obstetric History History (0,0,0,1) # 1 Baby 1 Outcome Date: 04/12/2017 Outcome: Live Outcome or Result: Vaginal Gender: Female Gest Age: 37 weeks Wt: 3033 g Hospital: [facility] Labor: -- Child's Name: -- Baby's Father: -- Comment: Tenzin EGA and LETY Gestational Age (EGA) and LETY * Note: EGA calculated as of 02/29/2020 LETY: 06/05/2020 EGA*: 26 weeks 1 day Type: Authoritative Method Date: 08/30/2019 Method: Last Menstrual Period (08/30/2019) Confirmation: Confirmed Description: -- Comments: -- Entered by: Kaylyn Lobo LPN on 10/24/2019 Other LETY Calculations for this : No additional LETY calculations have been recorded for this History of Present Illness ob visit Review of Systems Constitutional: No fever, No chills, No sweats, No weakness. Respiratory: No shortness of breath, No cough. Cardiovascular: No chest pain, Noperipheral edema. Physical Exam Vitals & Measurements T: 36.8 ?C (Temporal Artery) BP: 118/72 HT: 163 cm WT: 75.0 kg WT: 75.0 kg BMI: 28.23 Examinations Glucose Urine Dipstick: Negative Protein Urine Dipstick: Negative Weight Measured: 75 kg Systolic Blood Pressure: 118 mmHg Diastolic Blood Pressure: 72 mmHg D-EGA at Documented Date, Time: 26W 1D Fundal Height: 30 cm Labor Signs/Symptoms: None Baby A - Activity: Present per patient Baby A - FHR: 130 bpm Next Appointment: 4 week(s) Antepartum Comment: US at 32wks for growth; rec TdaP at HD General Exam: Constitutional: alert, no acute distress, well hydrated, well developed, well nourished. Skin: normal color, no rashes, no lesions, no unusual bruising. Head: atraumatic, normocephalic. Eyes: EOM intact, no nystagmus, no icterus. Ears: no external deformities, gross hearing intact. Respiratory: no respiratory distress. Abdomen: gravid, nontender. Extremities: no deformities, no edema. Psych: oriented to all spheres, affect and mood appropriate, normal interaction, good eye contact. Assessment/Plan RTC 4 wks. Growth US at 32wks to measure growth as pt has been measuring large. Mood stable off meds. 1. Supervision of normal in second trimester (Z34.92: Encounter for supervision of normal , unspecified, second trimester) Ordered: Office Visit Level 3 Est 89954 TH US Follow Up 2. Genital herpes simplex virus (HSV) infection in mother affecting (O98.319: Other infections with a predominantly sexual mode of transmission complicating , unspecified trimester) Ordered: Office Visit Level 3 Est 16978 TH Follow Up 3. Depression during , antepartum (O99.340: Other mental disorders complicating , unspecified trimester) Ordered: Office Visit Level 3 Est 89112 TH US Follow Up 4. 26 weeks gestation of (Z3A.26: 26 weeks gestation of ) Ordered: Office Visit Level 3 Est 90966 TH US Follow Up Follow-up With When Contact Information Ludivina GARDNER MD In [address] [place] [address]- Additional Instructions: Problem List/Past Medical History Ongoing Depression during , antepartum Genital herpes simplex virus (HSV) infection in mother affecting Supervision of normal in second trimester Historical Procedure/Surgical History Tonsillectomy. 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 Never Smokeless Tobacco Use:., 02/29/2020 Family History Diabetes mellitus type 1: Grandparent. Hypertension: Grandparent. Lab Results Ambulatory Point of Care Results Glucose Urine Dipstick: Negative (02/29/20 09:41:00) Protein Urine Dipstick: Negative (02/29/20 09:41:00) [facility] Comment on above: Result Comment: Elec tronically Signed By: TAWANDA SARMIENTO, Ludivina Phillip\.br\Date and Time Signed: 02/29/20 10:02 EDT Coding Summary.on 02-20-2020 Coding Summary. CODING DATE: 020 [facility] DSC STATUS: Home (Routine DC) PAYOR: Medicaid EA DESCRIPTION 0425 LEVEL I OTHER MISCELLANEOUS ANCILLARY PROCEDURES 0402 BASIC CHEMISTRY TESTS 0408 LEVEL I HEMATOLOGY TESTS 0393 BLOOD AND TISSUE TYPING 0486 BASIC BLOOD TYPING ADMIT DX: REASON FOR VISIT DX: Z3A.22 22 weeks gestation of FINAL DX: PRINCIPAL: Z3A.22 22 weeks gestation of SECONDARY: PYMT PROC EAPG STAT DESCRIPTION DOCTOR NAME DATE NOTE: The code number assigned matches the documented diagnosis and / or procedure in the patient's chart. However, the narrative phrase printed from the coding software may appear abbreviated, or result in slightly different terminology. Coded By: Falguni Baez CphT Date Saved: 02/20/2020 03:43 pm Normal [facility] ABO/Rhon 02-19-2020 ABO/Rh Positive Invalid Interpretation Code [facility] Comment on above: Performed By: #### 1 [id number] ####[facility] [address] [place] [address] ABSCon 02-19-2020 ABSC Gel Interp Negative Normal [facility] Comment on above: Performed By: #### 1 [id number] ####[facility] [address] [place] [address] CBC w/Indiceson 02-19-2020 Erythrocyte distribution width (RBC) [Ratio] 13.5 % Normal 10.9-14.2 [facility] Comment on above: Performed By: #### 3 [id number], [id number] #### [facility] [address] [place] [address] Hematocrit (Bld) [Volume fraction] 37.6 % Normal 34.0-46.0 [facility] Comment on above: Performed By: #### 3 [id number], [id number] #### [facility] [address] [place] [address] Hemoglobin (Bld) [Mass/Vol] 13.4 g/dL Normal 12.0-16.0 [facility] Comment on above: Performed By: #### 3 [id number], [id number] #### [facility] [address] [place] [address] MCH (RBC) [Entitic mass] 33.2 pg Normal 27.0-34.0 [facility] Comment on above: Performed By: #### 3 [id number], [id number] #### [facility] [address] [place] [address] MCHC (RBC) [Mass/Vol] 35.7 g/dL Normal 31.4-36.0 [facility] Comment on above: Performed By: #### 3 [id number], [id number] #### [facility] [address] [place] [address] MCV (RBC) [Entitic vol] 92.8 fL Normal 80.0-100.0 [facility] Comment on above: Performed By: #### 3 [id number], [id number] #### [facility] [address] [place] [address] Platelet mean volume (Bld) [Entitic vol] 8.5 fL Normal 6.4-10.8 [facility] Comment on above: Performed By: #### 3 [id number], [id number] #### [facility] [address] [place] [address] Platelets (Bld) [#/Vol] 157.0 E9/L Normal 150.0-500.0 [facility] Comment on above: Performed By: #### 3 [id number], [id number] #### [facility] [address] [place] [address] RBC (Bld) [#/Vol] 4.0 E12/L Low 4.3-5.9 [facility] Comment on above: Performed By: #### 3 [id number], [id number] #### [facility] [address] [place] [address] WBC corrected for nucl RBC Auto (Bld) [#/Vol] 6.9 E9/L Normal 4.0-11.0 [facility] Comment on above: Performed By: #### 3 [id number], [id number] #### [facility] [address] [place] [address] Consent for Treatmenton 01-21 Consent for Treatment [id number]:12 [id number] Normal [facility] Gest Scr Glu 1 Hron 02-19-20 20 Glucose [Mass/Vol] 116 mg/dL Normal 55-140 [facility] Comment on above: Result Comment: Posi tive Screen =1 HR > 140mg/dL Performed By: #### 3 [id number], [id number] ####[facility] [address] [place] [address] Ambulatory Clinical Summaryo n 02-01-2020 Ambulatory Clinical Summary {[id number] Normal [facility] Obstetrics Office/Clinic Not john 02-01-2020 Obstetrics Office/Clinic Note Chief Complaint OB 22w 1d, baby moving Obstetric History History (0,0,0,1) # 1 Baby 1 Outcome Date: 04/12/2017 Outcome: Live Outcome or Result: Vaginal Gender: Female Gest Age: 37 weeks Wt: 3033 g Hospital: [facility] Labor: -- Child's Name: -- Baby's Father: -- Comment: Tenzin EGA and LETY Gestational Age (EGA) and LETY * Note: EGA calculated as of 02/01/2020 LETY: 06/05/2020 EGA*: 22 weeks 1 day Type: Authoritative Method Date: 08/30/2019 Method: Last Menstrual Period (08/30/2019) Confirmation: Confirmed Description: -- Comments: -- Entered by: Kaylyn Lobo LPN on 10/24/2019 Other LETY Calculations for this : No additional LETY calculations have been recorded for this History of Present Illness ob visit Review of Systems Constitutional: No fever, No chills, No sweats, No weakness. Respiratory: No shortness of breath, No cough. Cardiovascular: No chest pain, Noperipheral edema. Physical Exam Vitals & Measurements T: 36.9 ?C (Temporal Artery) BP: 110/72 HT: 163.0 cm HT: 163 cm WT: 73.8 kg WT: 73.8 kg BMI: 27.78 Examinations Glucose Urine Dipstick: Negative Protein Urine Dipstick: Negative Weight Measured: 73.8 kg Systolic Blood Pressure: 110 mmHg Diastolic Blood Pressure: 72 mmHg D-EGA at Documented Date, Time: 22W 1D Fundal Height: 25.5 cm Labor Signs/Symptoms: None Baby A - Activity: Present per patient Baby A - FHR: 138 bpm Next Appointment: 4 week(s) Antepartum Comment: routine ob General Exam: Constitutional: alert, no acute distress, well hydrated, well developed, well nourished. Skin: normal color, no rashes, no lesions, no unusual bruising. Head: atraumatic, normocephalic. Eyes: EOM intact, no nystagmus, no icterus. Ears: no external deformities, gross hearing intact. Respiratory: no respiratory distress. Abdomen: gravid, nontender. Extremities: no deformities, no edema. Psych: oriented to all spheres, affect and mood appropriate, normal interaction, good eye contact. Assessment/Plan RTC 4 wks. Mood good. Minimal weight gain so far. 1. Supervision of normal in second trimester (Z34.92: Encounter for supervision of normal , unspecified, second trimester) Ordered: Office Visit Level 4 Est 32084 TH 2. Genital herpes simplex virus (HSV) infection in mother affecting (O98.319: Other infections with a predominantly sexual mode of transmission complicating , unspecified trimester) Ordered: Office Visit Level 4 Est 09439 TH 3. Depression during , antepartum (O99.340: Other mental disorders complicating , unspecified trimester) Ordered: Office Visit Level 4 Est 50568 TH 4. 22 weeks gestation of (Z3A.22: 22 weeks gestation of ) Ordered: ABO/Rh Antibody Screen CBC w/ Indices Gestational Screen Glucose 1 Hour Office Visit Level 4 Est 05967 TH Follow-up With When Contact Information Ludivina GARDNER MD In [address] [place] [address]- Additional Instructions: Problem List/Past Medical History Ongoing Depression during , antepartum Genital herpes simplex virus (HSV) infection in mother affecting Supervision of normal in second trimester Historical Procedure/Surgical History Tonsillectomy. 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 Never Smokeless Tobacco Use:., 02/01/2020 Family History Diabetes mellitus type 1: Grandparent. Hypertension: Grandparent. Lab Results Ambulatory Point of Care Results Glucose Urine Dipstick: Negative (02/01/20 09:32:00) Protein Urine Dipstick: Negative (02/01/20 09:32:00) Normal [facility] Comment on above: Result Comment: Elec tronically Signed By: Ludivina GARDNER MD\.br\Date and Time Signed: 02/01/20 09:52 EDT Ambulatory Clinical Summaryo n 07--2020 Ambulatory Clinical Summary {[id number] Epifanio Faustin [facility] Obstetrics Office/Clinic Not john 01-08-2020 Obstetrics Office/Clinic Note Chief Complaint OB 18w 5d, feeling flutters, vaginal pain like menstrual cramping for about half hour went away after warm bath and resting, pressure low abd. area off and on through out yesterday and this morning not as much but still there Obstetric History History (0,0,0,1) # 1 Baby 1 Outcome Date: 04/12/2017 Outcome: Live Outcome or Result: Vaginal Gender: Female Gest Age: 37 weeks Wt: 3033 g Hospital: [facility] Labor: -- Child's Name: -- Baby's Father: -- Comment: [place] EGA and LETY Gestational Age (EGA) and LETY * Note: EGA calculated as of 01/08/2020 LETY: 06/05/2020 EGA*: 18 weeks 5 days Type: Authoritative Method Date: 08/30/2019 Method: Last Menstrual Period (08/30/2019) Confirmation: Confirmed Description: -- Comments: -- Entered by: Kaylyn Lobo LPN on 10/24/2019 Other LETY Calculations for this : No additional LETY calculations have been recorded for this History of Present Illness ob visit, vaginal pain yest and today Review of Systems Constitutional: No fever, No chills, No sweats, No weakness. Respiratory: No shortness of breath, No cough. Cardiovascular: No chest pain, Noperipheral edema. Physical Exam Vitals & Measurements T: 37.1 ?C (Temporal Artery) BP: 114/66 HT: 163 cm WT: 72.1 kg BMI: 27.14 Examinations Glucose Urine Dipstick: Negative Ketones Urine Dipstick: Negative Protein Urine Dipstick: Trace Weight Measured: 72.1 kg Systolic Blood Pressure: 114 mmHg Diastolic Blood Pressure: 66 mmHg D-EGA at Documented Date, Time: 18W 5D Labor Signs/Symptoms: Pelvic pain Baby A - Activity: Present per patient Baby A - FHR: 150 bpm Next Appointment: 4 week(s) Antepartum Comment: Discussed Mg for HAs; having round ligament pain General Exam: Constitutional: alert, no acute distress, well hydrated, well developed, well nourished. Skin: normal color, no rashes, no lesions, no unusual bruising. Head: atraumatic, normocephalic. Eyes: EOM intact, no nystagmus, no icterus. Ears: no external deformities, gross hearing intact. Respiratory: no respiratory distress. Abdomen: gravid, nontender. Extremities: no deformities, no edema. Psych: oriented to all spheres, affect and mood appropriate, normal interaction, good eye contact. Assessment/Plan RTC 4 wks. Round ligament pain. Discussed Mg for her frequent HAs. 1. Supervision of normal in second trimester (Z34.92: Encounter for supervision of normal , unspecified, second trimester) Ordered: Office Visit Level 3 Est 99801 TH 2. Genital herpes simplex virus (HSV) infection in mother affecting (O98.319: Other infections with a predominantly sexual mode of transmission complicating , unspecified trimester) Ordered: Office Visit Level 3 Est 71713 TH 3. Depression during , antepartum (O99.340: Other mental disorders complicating , unspecified trimester) Ordered: Office Visit Level 3 Est 97799 TH 4. 18 weeks gestation of (Z3A.18: 18 weeks gestation of ) Ordered: Office Visit Level 3 Est 91204 TH Abdominal pain during in second trimester (O26.892: Other specified related conditions, second trimester) Ordered: Urnls Dip Stick Non-Auto w/o Micrscpy POC 89173 Follow-up With When Contact Information Ludivina GARDNER MD In [address] [place] [address]- Additional Instructions: Problem List/Past Medical History Ongoing Depression during , antepartum Genital herpes simplex virus (HSV) infection in mother affecting Supervision of normal in second trimester Historical Procedure/Surgical History Tonsillectomy. 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 Never Smokeless Tobacco Use:., 01/08/2020 Family History Diabetes mellitus type 1: Grandparent. Hypertension: Grandparent. Lab Results Ambulatory Point of Care Results Bilirubin Urine Dipstick: Negative (01/08/20 10:26:00) Blood Urine Dipstick: Negative (01/08/20 10:26:00) Glucose Urine Dipstick: Negative (01/08/20 10:26:00) Ketones Urine Dipstick: Negative (01/08/20 10:26:00) Leukocytes Urine Dipstick: Negative (01/08/20 10:26:00) Nitrite Urine Dipstick: Negative (01/08/20 10:26:00) Protein Urine Dipstick: Trace (01/08/20 10:26:00) Specific [place] Urine Dipstick: 1.020 (01/08/20 10:26:00) Urine Appea (more content not included)... Normal [facility] Comment on above: Result Comment: Elec tronically Signed By: TAWANDA SARMIENTO, Ludivina Phillip\.portillo\Date and Time Signed: 01/08/20 10:36 EDT US After 1st Trime steron 01-05-2020 US After 1st Trimester Exam Date/Time: 01/03/2020 08:52 EDT Reason for Exam: Standard Anatomy Report IMPRESSION: SINGLE LIVE INTRAUTERINE CORRESPONDING TO APPROXIMATELY Composite Ultrasound Age: 18 weeks, 6 days. NO GROSS ABNORMALITY IDENTIFIED. US After 1st Trimester: 01/03/2020 8:02 AM CLINICAL HISTORY: Standard Anatomy. . LMP: 08/30/2019 LETY from LMP: 06/05/2020 Gestational Age by LMP: 18 weeks, 0 days LETY from average ultrasound age: 1205/30/2020 Composite Ultrasound Age: 18 weeks, 6 days COMPARISON: 11/03/2019. Transabdominal ultrasound of the gravid uterus was performed. FINDINGS: A single live intrauterine is noted in variable position. cardiac activity is measured at 155 bpm. The Cervix Length: 3.1 cm. PLACENTA: A grade 1-appearing placenta is posterior in location without evidence of placenta previa. The amniotic fluid volume appears within normal limits for gestation. MEASUREMENTS: The following measurements were obtained: * Biparietal Diameter: 4.0 cm with the Growth Percentile Rank: 62.0 Percent * Head Circumference: 15.6 cm with the Growth Percentile Rank: 67.0 Percent * Abdominal Circumference: 14.2 cm with the Growth Percentile Rank: 90.0 Percent * Femur Length: 2.8 cm with the Growth Percentile Rank: 64.0 Percent * which corresponds to Composite Ultrasound Age: 18 weeks, 6 days. Report ESTIMATED WEIGHT: Estimated Weight: 266.6 (grams) Estimated Weight: 0lbs 9.4ozs (lbs/oz) EFW growth percentile rank: 94 (Percent) EFW AUA Percentile: 51.9 (Percent) EFW LMP Percentile: 93.7 (Percent) cerebral ventricles, choroid plexus, posterior fossa, upper lip, spine, kidneys, urinary bladder, four-chamber heart, left ventricular outflow tract, right ventricular outflow tract, diaphragm, stomach, three-vessel cord, cord insertion and extremities appear within normal limits. FINAL REPORT Dictated: 01/05/2020 11:51 am Francis Nascimento M.D. Signed (Electronic Signature): 01/05/2020 11:51 am Signed by: Francis Nascimento M.D. Transcribed by: LUIS Technologist: MIKEY Technical Comments LMP : 08/30/19 LETY 06/05/20 LETY Obtained LETY by LMP GA 18w0d History 2 Para 1 Transabdominal Ultrasound Performed Placenta Location posterior Placenta Grade 1 Positioning Variable Amniotic Fluid Volume Normal Measurements EFW (g) 94% Anatomy Brain Normal Heart Normal Kidneys. Normal Stomach Normal Bladder Normal 3VC Normal Spine Normal Extremities Normal Diaphragm Normal ACI Normal Normal [facility] Ambulatory Clinical Summaryo n 01-03-2020 Ambulatory Clinical Summary {[id number]}C [id number] Normal [facility] Obstetrics Office/Clinic Not john 01-03-2020 Obstetrics Office/Clinic Note Chief Complaint OB visit 18 weeks, headaches less than last appointment, Obstetric History History (0,0,0,1) # 1 Baby 1 Outcome Date: 04/12/2017 Outcome: Live Outcome or Result: Vaginal Gender: Female Gest Age: 37 weeks Wt: 3033 g Hospital: [facility] Labor: -- Child's Name: -- Baby's Father: -- Comment: [place] EGA and LETY Gestational Age (EGA) and LETY * Note: EGA calculated as of 01/03/2020 LETY: 06/05/2020 EGA*: 18 weeks Type: Authoritative Method Date: 08/30/2019 Method: Last Menstrual Period (08/30/2019) Confirmation: Confirmed Description: -- Comments: -- Entered by: Kaylyn Lobo LPN on 10/24/2019 Other LETY Calculations for this : No additional LETY calculations have been recorded for this History of Present Illness 24 y/o here for visit following anatomy US. Per mammography supervisor: anatomy WNL, FHR 155, variable position, cx 3.1cm, posterior placenta, EFW 94%, 9oz. Headaches are better than last time. Review of Systems Constitutional: No fever, No chills, Yes headache. Skin: No rash, No lesions. Respiratory: No shortness of breath. Cardiovascular: No peripheral edema. Gastrointestinal: No nausea, No vomiting, Noheartburn, No diarrhea, No constipation. Genitourinary: No dysuria. Gynecology: No abnormal vaginal discharge, No vaginal itching/burning, No bleeding, No leaking of fluid. Physical Exam Vitals & Measurements BP: 118/72 HT: 163 cm WT: 72.3 kg BMI: 27.21 Examinations Glucose Urine Dipstick: Negative Protein Urine Dipstick: Negative Weight Measured: 72.3 kg Systolic Blood Pressure: 118 mmHg Diastolic Blood Pressure: 72 mmHg D-EGA at Documented Date, Time: 18 weeks Labor Signs/Symptoms: Headaches Baby A - FHR: 155 bpm Next Appointment: 4 week(s) Antepartum Comment: anatomy WNL today. EFW 94%. General Exam: Constitutional: alert, no acute distress, well hydrated, well developed, well nourished. Skin: normal color, no rashes, no lesions, no unusual bruising. Head: atraumatic, normocephalic. Eyes: EOM intact, no nystagmus, no icterus. Ears: no external deformities, gross hearing intact. Respiratory: no respiratory distress. Abdomen: gravid, nontender. Extremities: no deformities, no edema. Psych: oriented to all spheres, affect and mood appropriate, normal interaction, good eye contact. Assessment/Plan 1. Depression during , antepartum (O99.340: Other mental disorders complicating , unspecified trimester) Stable. Ordered: Office Visit Level 3 Est 54608 TH 2. Supervision of normal in second trimester (Z34.92: Encounter for supervision of normal , unspecified, second trimester) Recommend Magnesium 500mg daily for headaches. Let pt know her sequentil screen is complete and low risk. Discussed first OB lab results. Follow up in 4 weeks. Ordered: Office Visit Level 3 Est 71531 TH 3. 18 weeks gestation of (Z3A.18: 18 weeks gestation of ) Ordered: Office Visit Level 3 Est 31568 TH 4. 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 Ordered: Office Visit Level 3 Est 31419 TH Follow-up With When Contact Information [facility] In [address] [place] [address]- Additional Instructions: Problem List/Past Medical History Ongoing Depression during , antepartum Genital herpes simplex virus (HSV) infection in mother affecting Supervision of normal in second trimester Historical Procedure/Surgical History Tonsillectomy. 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 Never Smokeless Tobacco Use:., 01/03/2020 Family History Diabetes mellitus type 1: Grandparent. Hypertension: Grandparent. Lab Results Ambulatory Point of Care Results Glucose Urine Dipstick: Negative (01/03/20 08:52:00) Protein Urine Dipstick: Negative (01/03/20 08:52:00) Normal [facility] Comment on above: Result Comment: Elec tronically Signed By: Silvia MURDOCK\.portillo\Date and Time Signed: 01/03/20 09:17 EDT Sequential Screen, Second Tr imesteron 01-01-2020 Sequential Screen 2 see below Normal [facility] Comment on above: Order Comment: (Send out facility name if possible): [facility] with accompanying paperwork. Result Comment: Screen negative - detailed report to follow Testing Performed: [facility] [place] [address] Performed By: #### S EQ2 #### [facility] [address] [place] [address] Sequential Screen, First Tri mesteron 12-06-2019 Sequential Screen 1 see below Normal [facility] Comment on above: Order Comment: (Send out facility name if possible): [facility] with accompanying paperwork. Result Comment: Jeanie olguin Results pending second trimester sample - detailed report to follow Testing Performed: [facility] [address] [place] [address] Performed By: #### S EQ1 #### [address] [address] Miscellaneous Lab Procedureo n 05-23-2017 [facility] [place] [facility] [place] Normal [facility] Comment on above: Order Comment: Test( s) Ordered: Result Comment: Test Ordered: IGP, rfx Aptima HPV ASCUInterpretation:NEGATIVE FOR INTRAEPITHELIAL LESION AND MALIGNANCYPREDOMINANCE OF COCCOBACILLI CONSISTENT WITH SHIFT INVAGINAL LUCY IS PRESENTPathologist Provided ICD Codes:R87.5Specimen Adequacy:Satisfactory for evaluation. Endocervical and/or squamousmetaplastic cells (endocervical component) are present.Comments:The pap smear is a screening test designated to aid in thedetection of pre-malignant and malignant conditions of theuterine cervix. It is not a diagnostic procedure and shouldnot be used as the sole means of detecting cervical cancer.Both false-positive and false-negative reports do occur.This liquid based ThinPrep(R) pap test was screened with theuse of an image guided system.Performed by Deborah Arias Product Analyst (ASCP)The HPV DNA reflex criteria were not met with this specimenresult therefore, no HPV testing was performed. _ TESTING PERFORMED AT [facility]. ORIGINAL REPORT ON FILE IN LAB CONTAINS ADDITIONAL TEST SITE INFORMATION. ___ Performed By: #### L 801.1541 ####[facility] [address] [facility] [place], [address] Discharge Instructionon 03-22 Discharge Instruction [facility] [address] [place], [place] [address]Zvehqmtkpxko for Home/Discharge Wjuswsiesynu02/24/17 2115MR#: [id number] Acct: [id number]: FEMI KRAMER R Rep #: [id number]: 1995 21 From: [facility]: Status: ADM INDischarge Diet: No RestrictionsDischarge Activity: Return to Normal Activity, May not drive while taking narcotic painmedications., May ShowerMay resume sexual activity in: 4-6 weeksAdditional Activity Instructions:: Nothing in the vagina for 4-6 weeks. You may return towork/school in 6 weeks.Call your doctor if your incision/area has: Continuous Slow Oozing, Sudden Increased Bleeding,Increased Pain/ Swelling, Increased Redness, Foul Smelling DischargeAdditional Instructions:If you experience any of the following, contact your healthcare provider.* Bleeding that soaks a pad every hour for 2 hours* Fever 100.4 or higher* Unrelieved incision or abdominal pain* Swelling, redness, discharge or bleeding from your incision or episiotomy site* Your incision begins to separate* Problems urinating (including inability to urinate or burning while urinating).* Visual changes* Severe headache* Flu-like symptoms* Pain or redness in one of both of your breasts* Pain, warmth, tenderness or swelling in your legs, especially the calf area* Frequent nausea and vomiting* Symptoms of depression or anxietyIf you experience any of the following, call 911 or go to the nearest Emergency Room.* Chest pain* Problems breathing* Seizure activity* Partial or complete paralysis of a body part, slurred speech, weakness or drooping of theface, or a sudden inability to walk or hold your balanceAllergies/Adverse Reactions:AllergiesNo Known Allergies Allergy (Verified 04/12/17 16:08)Medications to take at DischargeNaproxen [Naprosyn] 250 - 500 mg PO Q8H PRN PRN #30 tablet 04/13/17The following prescriptions were given:Naproxen [Naprosyn] 250 - 500 mg PO Q8H PRN PRN #30 tabletPRN Reason: MILD PAINWhen: Call to make an appointment with your doctor in 6 weeks. If you had elevated BloodPressure or 4th degree laceration you will need to be seen in 2 weeks.04/13/172114 Date Aimee Castelan [facility]: Normal [facility] Operative Reporton 7 Operative Report [facility] [id number] [place], [place] [address]Htpsxlkqs Crstnx02/24/17 0031MR#: [id number] Acct: [id number]: FEMI KRAMER Rep #: [id number]: 1995 21 From: [facility]: Status: ADM IN YLocation: WP [id number] DeliveryMaternal Presentation: Active Labor, Spontaneous Rupture of Bnwjgliaq81 yo @ 37w1d presents IAL SROM clear fluid, 3-4 cm dilated.Amniotic Membrane Rupture Type: Spontaneous at homeAmniotic Fluid Description: ClearFinal LETY: 05/02/17Gestational age: 37 Weeks and 2 DaysDate of Procedure: 04/12/17Pre-Operative Diagnosis: ial sromPost-Operative Diagnosis: sameSurgery/ Procedure Performed: Spontaneous Vaginal DeliveryType of Anesthesia: EpiduralDescription of Procedure:delivered uncomplicated loose nuchal x 1 easily reduced over the head and rest of infantdleivered. delayed cord clamping 30 sec. 1st degree perineal laceration repaired in the usualfashion. 200cc ebl. placenta delivered itnact immediately following. Presentation: LOAPlacental Delivery Description: SpontaneousPlacenta Disposition: [facility] PavilionCord Entanglement: Around neck x 1, looseEstimated Blood Loss: 200Infant A gender: FemaleLaceration: Perineal Extension/lac, 1st degreeMedications given after delivery: IV PitocinComplications: None04/13/17 0033 Date Aimee Castelan MDCC: Aimee Castelan MD Signed Normal [facility] (ROM) Rupture Of Membraneson 04-12-2017 ROM Positive High Negative [facility] Comment on above: Result Comment: Amni otic fluid present indicates rupture of Membranes.RESULTS CALLED TO MICHELLE 04/12/17 Conner8 Brittni Sandoval.REPORT READ BACK BY SAME . Performed By: #### L 205.1000 ####[facility] [address] [place], [place], [address] CBC-Complete Blood Cnt No Di ffon 04-12-2017 Erythrocyte distribution width Auto Ratio (RBC) 12.3 % Normal 11.6-14.6 [facility] Comment on above: Performed By: #### L 100.0500 ####[facility] [address] [facility] [address] Erythrocytes (RBC) 4.56 M/mm3 Normal 4.2-5.4 [facility] Comment on above: Performed By: #### L 100.0500 ####[facility] [address] [place], [address] Hematocrit (HCT) 40.0 % Normal 37-47 [facility] Comment on above: Performed By: #### L 100.0500 ####[facility] [address] [place], [address] Hemoglobin mass conc (Bld) 13.8 g/dL Normal 12.0-15.0 [facility] Comment on above: Performed By: #### L 100.0500 ####[facility] [address] [place], [address] MCH 30.3 pg Normal 27.0-32.0 [facility] Comment on above: Performed By: #### L 100.0500 ####[facility] [address] [place], [address] MCHC mass conc (RBC) 34.5 g/gl Normal 32-36 [facility] Comment on above: Performed By: #### L 100.0500 ####[facility] [address] [place], [address] MCV 87.7 fL Normal 81-99 [facility] Comment on above: Performed By: #### L 100.0500 ####[facility] [address] [place], [address] Platelet mean volume (PMV) 11.4 fL Normal 6.2-12.0 [facility] Comment on above: Performed By: #### L 100.0500 ####[facility] [address] [place], [address] Platelets 201 10*3/uL Normal 150-450 [facility] Comment on above: Performed By: #### L 100.0500 ####[facility] [address] [place], [address] RDW SD 38.7 fl Normal 35.1-43.9 [facility] Comment on above: Performed By: #### L 100.0500 ####[facility] [address] [place], [address] WBC (Leukocytes) 11.6 10*3/uL High 4.4-11.0 [facility] Comment on above: Performed By: #### L 100.0500 ####[facility] [address] [place], [address] History and Physical Examon 04-12-2017 History and Physical Exam [facility] [address] [facility] [place], [place] [address]Legbbtj and Oswqevjm68/23/17 1732#: [id number] Acct: [id number]: FEMI KRAMER Rep #: [id number]: 1995 21 From: [facility]ime[facility] Castelan [facility]: Status: ADM IN YLocation: [id number] and PhysicalDate of Admission: 04/12/17History of Present Illness:21 yo @ 37w1d presents IAL with SROM clear fluid.Family History Summary:Reviewed history and no changes required: 04/12/2017MGF - Has Family History of Diabetes - Entered On: 03/15/2017MGF - Has Family History of Heart Disease - Entered On: 03/29/2017Social History:Reviewed history from 04/05/2017 and no changes required:DustinPast Surgical History:Reviewed history from 03/15/2017 and no changes required:tonsilsPast HistoryGravida: 1[OB LETY Calculations]Vital Signs - OBHeight: 64 inches/ minFlowsheet View for Follow-up VisitEstimated weeks ofgestation: 37 1/7Review of SystemsGUComplains of abnormal vaginal discharge.Denies vaginal itching or burning, urinary incontinence, urinary urgency, urinaryfrequency and bloody urine.Except as noted in the HPI, the review of systems is negative for General and GI. Lab Monitoring, Entry, and TrackingInitial Lab:TEST VALUE DATE REVIEWEDD (Rh) Type: posAntibody screen: negativeRubella: immuneVDRL: negativeHBsAg: negativeHIV: negativePhysical ExaminationVital Signs:Last Ht: 64 (03/15/2017)General Exam:Constitutional:alert , no acute distress, well hydrated, well developed and well nourished.Abdomen:gravid, nontender, no guarding, normal BS, no hepatosplenomegaly and no hernias.Pelvic Exam:Vulva:normal appearance, normal hair distribution and no lesions or masses.Urethra:no masses, non-tender and no discharge.Bladder:no masses, non-tender and non-distended.Vagina:norm al, rugated, physiologic discharge, no lesions, no masses, no cystocele and adequatepelvic support.Cervix:normal, no motion tenderness and no lesions. / clear fluidUterus:gravid, size c/w dates, softened, anteverted, anteflexed, mobile and non-tender.Adnexa:normal, no masses, mobile and nontender.Rectum:normal and no masses.fhts 130s moderate variability reactive no decels. toco q 2-3 minutesA/P:21 yo @ 37w1d IAL srom clear fluidadmit IAL routine care gbs negative epi PRN1 1736 Date [facility]elan [facility] Signature (if applicable): Date CC: Aimee Castelan MD Signed Normal [facility] Type AND Screenon 04-12-2017 Antibody Screen Negative Normal [facility] Comment on above: Order Comment: Reaso n for Type AND Screen/Red Cells: ROUTINE Performed By: #### B 101.7450 ####[facility] [address] [place], [place], [address] BLOOD TYPE GEL Positive Normal [facility] Comment on above: Order Comment: Reaso n for Type AND Screen/Red Cells: ROUTINE Performed By: #### B 101.7450 ####[facility] [address] [place], [address] Culture, Group B Streptococc uson 04-08-2017 CUGRB STEPHANY Culture Group B Beta Streptococcus is not isolated. Normal [facility] Comment on above: Performed By: #### M 100.1800 ####[facility] [address] [place], [address] Group B Strep DNA By PCRon 1 GBS TEST RESULT Negative Normal Negative [facility] Comment on above: Order Comment: NO CO LLECTION INFORMATION GIVENSource: Vaginal Performed By: #### L 8200.0000 ####[facility] [address] [place], [address] CBC with Diffon 12-16-2016 Basophils Auto #/vol (Bld) 0.0 K/mcL Normal 0-0.2 [facility] Comment on above: Performed By: #### C BCDIF, [place], [place] ####Unless otherwise noted, all testing performed by [address] [phone]: [id number] Director: Jr Alcantara M.D. Basophils/100 WBC Auto (Bld) 0.2 % Normal [facility] Comment on above: Performed By: #### C BCDIF, [place] ####Unless otherwise noted, all testing performed by [address] [phone]: [id number] Director: Jr Alcantara M.D. Eosinophils 0.0 K/mcL Normal 0-0.5 [facility] Comment on above: Performed By: #### C BCDIF, [place] ####Unless otherwise noted, all testing performed by [address] [phone]: [id number] Director: Jr Alcantara M.D. Eosinophils/100 leukocytes 0.0 % Normal [facility] Comment on above: Performed By: #### C BCDIF, [place] ####Unless otherwise noted, all testing performed by [address] [phone]: [id number] Director: Jr Alcantara M.D. Erythrocyte distribution width Auto Ratio (RBC) 13.4 % Normal 10-14.4 [facility] Comment on above: Performed By: #### C BCDIEsequiel, [place] ####Unless otherwise noted, all testing performed by [address] [phone]: [id number] Director: Jr Alcantara M.D. Erythrocytes (RBC) 4.23 M/mcL Normal 3.7-5.0 [facility] Comment on above: Performed By: #### C BCBOB, [place] ####Unless otherwise noted, all testing performed by [address] [phone]: [id number] Director: Jr Alcantara M.D. Hematocrit (HCT) 37.7 % Normal 34.4-44.8 [facility] Comment on above: Performed By: #### C BCDIF, [place] ####Unless otherwise noted, all testing performed by [address] [phone]: [id number] Director: Jr Alcantara M.D. Hemoglobin mass conc (Bld) 13.4 g/dL Normal 11.6-15.4 [facility] Comment on above: Performed By: #### C BCDIF, [place] ####Unless otherwise noted, all testing performed by [address] [phone]: [id number] Director: Jr Alcantara M.D. Lymphocytes 0.8 K/mcL Low 1.0-3.7 [facility] Comment on above: Performed By: #### C BCDIF, [place] ####Unless otherwise noted, all testing performed by [address] [phone]: [id number] Director: Jr Alcantara M.D. Lymphocytes/100 leukocytes 16.3 % Normal [facility] Comment on above: Performed By: #### C BCDIF, [place] ####Unless otherwise noted, all testing performed by [address] [phone]: [id number] Director: Jr Alcantara M.D. MCH 31.6 pg Normal 27.9-33.9 [facility] Comment on above: Performed By: #### C BCDIF, [place] ####Unless otherwise noted, all testing performed by [address] [phone]: [id number] Director: Jr Alcantara M.D. MCHC mass conc (RBC) 35.5 g/dL High 33.1-35.1 [facility] Comment on above: Performed By: #### C BCDIF, [place] ####Unless otherwise noted, all testing performed by [address] [phone]: [id number] Director: Jr Alcantara M.D. MCV 89.1 fL Normal 82.6-98.9 [facility] Comment on above: Performed By: #### C BCBOB, [place] ####Unless otherwise noted, all testing performed by [address] [phone]: [id number] Director: Jr Alcantara M.D. Monocytes 0.3 K/mcL Normal 0.1-0.6 [facility] Comment on above: Performed By: #### C BCANDREWF, [place] ####Unless otherwise noted, all testing performed by [address] [phone]: [id number] Director: Jr Alcantara M.D. Monocytes/100 leukocytes 5.4 % Normal [facility] Comment on above: Performed By: #### C RUFINA, [place] ####Unless otherwise noted, all testing performed by [address] [phone]: [id number] Director: Jr Alcantara M.D. Neutrophils 4.0 K/mcL Normal 1.2-6.9 [facility] Comment on above: Performed By: #### C BCBOB, [place] ####Unless otherwise noted, all testing performed by [address] [phone]: [id number] Director: Jr Alcantara M.D. Platelet mean volume (PMV) 8.3 fL Normal 7.0-10.6 [facility] Comment on above: Performed By: #### C BCDIF, [place] ####Unless otherwise noted, all testing performed by [address] [phone]: [id number] Director: Jr Alcantara M.D. Platelets 120 K/mcL Low 162-402 [facility] Comment on above: Performed By: #### C BCDIF, [place] ####Unless otherwise noted, all testing performed by [address] [phone]: [id number] Director: Jr Alcantara M.D. Segmented Neut % 78.1 % Normal [facility] Comment on above: Performed By: #### C BCDIF, [place] ####Unless otherwise noted, all testing performed by [address] [phone]: [id number] Director: Jr Alcantara M.D. WBC (Leukocytes) 5.1 K/mcL Normal 3.4-10.6 [facility] Comment on above: Performed By: #### C BCDIF, [place] ####Unless otherwise noted, all testing performed by [address] [phone]: [id number] Director: Jr Alcantara M.D. [facility] 12-16-2016 Alanine aminotransferase (ALT) 62 U/L Normal 14-65 [facility] Comment on above: Performed By: #### C BCDIF, [place] ####Unless otherwise noted, all testing performed by [address] [phone]: [id number] Director: Jr Alcantara M.D. Albumin 3.5 g/dL Normal 3.2-5.2 [facility] Comment on above: Performed By: #### C BCDIF, [place] ####Unless otherwise noted, all testing performed by [address] [phone]: [id number] Director: Jr Alcantara M.D. Alkaline phosphatase (ALP) 72 U/L Normal 40-140 [facility] Comment on above: Performed By: #### C BCDIF, [place] ####Unless otherwise noted, all testing performed by [address] [phone]: [id number] Director: Jr Alcantara M.D. Aspartate aminotransferase (AST) 51 U/L High 0-45 [facility] Comment on above: Performed By: #### C BCDIF, [place] ####Unless otherwise noted, all testing performed by [address] [phone]: [id number] Director: Jr Alcantara M.D. Bilirubin (total) 0.6 mg/dL Normal 0.3-1.2 [facility] Comment on above: Performed By: #### C BCDIF, [place] ####Unless otherwise noted, all testing performed by [address] [phone]: [id number] Director: Jr Alcantara M.D. Calcium 8.7 mg/dL Normal 8.4-10.2 [facility] Comment on above: Performed By: #### C BCDIF, [place] ####Unless otherwise noted, all testing performed by [address] [phone]: [id number] Director: Jr Alcantara M.D. Chloride 102 mmol/L Normal 98-108 [facility] Comment on above: Performed By: #### C BCDIF, [place] ####Unless otherwise noted, all testing performed by [address] [phone]: [id number] Director: Jr Alcantara M.D. CO2 25 mmol/L Normal 21-32 [facility] Comment on above: Performed By: #### C BCDIF, [place] ####Unless otherwise noted, all testing performed by [address] [phone]: [id number] Director: Jr Alcantara M.D. Creatinine 0.52 mg/dL Normal 0.50-1.00 [facility] Comment on above: Performed By: #### C BCDIF, [place] ####Unless otherwise noted, all testing performed by [address] [phone]: [id number] Director: Jr Alcantara M.D. eGFR (black) mL/min/{1.73_m2} Normal [facility] Comment on above: Result Comment: Afri can S[place] GFR Calc Performed By: #### C BCDIF, [place] ####Unless otherwise noted, all testing performed by [address] [phone]: [id number] Director: Jr Alcantara M.D. eGFR (non-black) mL/min/{1.73_m2} Normal [facility] Comment on above: Result Comment: Non- GFR CalceGFR is an estimated Glomerular Filtration Rate based on the valueof the patient's serum creatinine. In outpatients, eGFR should be usedas a helpful tool in screening for CKD. In inpatients or patients withacute renal failure, eGFR represents the GFR at the moment of the drawand should be used with caution. Performed By: #### C BCDIF, [place] ####Unless otherwise noted, all testing performed by [address] [phone]: [id number] Director: Jr Alcantara M.D. Glucose mass conc 94 mg/dL Normal 65-99 [facility] Comment on above: Performed By: #### C BCDIF, [place] ####Unless otherwise noted, all testing performed by [address] [phone]: [id number] Director: Jr Alcantara M.D. Potassium molar conc 3.2 mmol/L Low 3.5-5.1 [facility] Comment on above: Performed By: #### C BCDIF, [place] ####Unless otherwise noted, all testing performed by [address] [phone]: [id number] Director: Jr Alcantara M.D. Protein 7.1 g/dL Normal 6.0-8.0 [facility] Comment on above: Performed By: #### C BCDIF, [place] ####Unless otherwise noted, all testing performed by [address] [phone]: [id number] Director: Jr Alcantara M.D. Sodium 136 mmol/L Normal 135-145 [facility] Comment on above: Performed By: #### C BCDIF, [place] ####Unless otherwise noted, all testing performed by [address] [phone]: [id number] Director: Jr Alcantara M.D. Urea nitrogen 4 mg/dL Low 8-25 [facility] Comment on above: Performed By: #### C KUSH ALMARAZ [place] ####Unless otherwise noted, all testing performed by [address] [phone]: [id number] Director: Jr Alcantara M.D. Culture, Bloodon 12-16-2016 Culture, Blood Test Name: Culture, Blood Culture Status: Final Culture Report: No Growth - Day 5 Micro Source: .... [facility] Comment on above: Performed By: #### B C ####Unless otherwise noted, all testing performed by [address] [phone]: [id number] Director: Jr Alcantara M.D. Culture, Blood Test Name: Culture, Blood Culture Status: Final Culture Report: No Growth - Day 5 Micro Source: .... Normal [facility] Comment on above: Performed By: #### B C ####Unless otherwise noted, all testing performed by [address] [phone]: [id number] Director: Jr Alcantara M.D. Culture, Urineon 12-16-2016 Culture, Urine Test Name: Culture, Urine Culture Status: Final Culture Report: No significant growth. Micro Source: .... [facility] Comment on above: Performed By: #### U RCUL ####Unless otherwise noted, all testing performed by [address] [phone]: [id number] Director: Jr Alcantara M.D. Lactic Acidon 12-16-2016 Lactate 0.7 mmol/L Normal 0.6-2.0 [facility] Comment on above: Performed By: #### C KUSH [place] ####Unless otherwise noted, all testing performed by [address] [phone]: [id number] Director: Jr Alcantara M.D. Urine with Indicated Culture on 12-16-2016 Bilirubin,Urine Small Abnormal NEG;NEGATIVE [facility] Comment on above: Performed By: #### U IC ####Unless otherwise noted, all testing performed by [address] [phone]: [id number] Director: Jr Alcantara M.D. Blood,Urine Negative Normal NEG;NEGATIVE [facility] Comment on above: Performed By: #### U IC ####Unless otherwise noted, all testing performed by [address] [phone]: [id number] Director: Jr Alcantara M.D. Ketone,Urine >= 160 Normal [facility] Comment on above: Performed By: #### U IC ####Unless otherwise noted, all testing performed by [address] [phone]: [id number] Director: Jr Alcantara M.D. Leuk.Esterase,Urine Trace Abnormal Negative [facility] Comment on above: Performed By: #### U IC ####Unless otherwise noted, all testing performed by [address] [phone]: [id number] Director: Jr Alcantara M.D. Mucus, Urine Moderate Abnormal None Seen [facility] Comment on above: Performed By: #### U IC ####Unless otherwise noted, all testing performed by [address] [phone]: [id number] Director: Jr Alcantara M.D. Nitrite,Urine Negative Normal NEG;NEGATIVE [facility] Comment on above: Performed By: #### U IC ####Unless otherwise noted, all testing performed by [address] [phone]: [id number] Director: Jr Alcantara M.D. Protein,Urine Trace Abnormal NEGATIVE;NEG [facility] Comment on above: Performed By: #### U IC ####Unless otherwise noted, all testing performed by [address] [phone]: [id number] Director: Jr Alcantara M.D. Specific [place],Urine 1.020 Normal 1.003-1.029 [facility] Comment on above: Performed By: #### U IC ####Unless otherwise noted, all testing performed by [address] [phone]: [id number] Director: Jr Alcantara M.D. Squamous Epithelial 5-10 Abnormal 0-3+;NS [facility] Comment on above: Performed By: #### U IC ####Unless otherwise noted, all testing performed by [address] [phone]: [id number] Director: Jr Alcantara M.D. Urine, bacteria in sediment Rare Normal NS;RARE [facility] Comment on above: Performed By: #### U IC ####Unless otherwise noted, all testing performed by [address] [phone]: [id number] Director: Jr Alcantara M.D. Urine, character Clear Normal [facility] Comment on above: Performed By: #### U IC ####Unless otherwise noted, all testing performed by [address] [phone]: [id number] Director: Jr Alcantara M.D. Urine, color Yellow Normal [facility] Comment on above: Performed By: #### U IC ####Unless otherwise noted, all testing performed by [address] [phone]: [id number] Director: Jr Alcantara M.D. Urine, glucose presence Negative Normal NEG;NEGATIVE [facility] Comment on above: Performed By: #### U IC ####Unless otherwise noted, all testing performed by [address] [phone]: [id number] Director: Jr Alcantara M.D. Urine, leukocytes in sedmiment 5-10 Abnormal 0-3+;3-5+;NS [facility] Comment on above: Performed By: #### U IC ####Unless otherwise noted, all testing performed by [address] [phone]: [id number] Director: Jr Alcantara M.D. Urine, pH 7.0 [pH] Normal 4.5-8.0 [facility] Comment on above: Performed By: #### U IC ####Unless otherwise noted, all testing performed by [address] [phone]: [id number] Director: Jr Alcantara M.D. Urobilinogen,Urine 1.0 EU/dL High 0.2 [facility] Comment on above: Performed By: #### U IC ####Unless otherwise noted, all testing performed by [address] [phone]: [id number] Director: Jr Alcantara M.D. Vital Signs Date Time Vital Sign Value Performing Clinician [facility] 10-31-2024 13:33-0400 Body mass index (BMI) [Ratio] 22.83 kg/m2 Ellis Maryana DO Work Phone: [facility] 10-31-2024 13:33-0400 Body weight 60.33 kg Ellis Maryana DO Work Phone: [facility] 10-31-2024 13:33-0400 Diastolic blood pressure 68 mm[Hg] Ellis Maryana DO Work Phone: [facility] 10-31-2024 13:33-0400 Systolic blood pressure 118 mm[Hg] Ellis Maryana DO Work Phone: [facility] 10-17-2024 09:03-0400 Body mass index (BMI) [Ratio] 22.49 kg/m2 Ellis Maryana DO Work Phone: [facility] 10-17-2024 09:03-0400 Body weight 59.42 kg Ellis Maryana DO Work Phone: [facility] 10-17-2024 09:03-0400 Diastolic blood pressure 68 mm[Hg] Ellis Maryana DO Work Phone: [facility] 10-17-2024 09:03-0400 Systolic blood pressure 108 mm[Hg] Ellis Maryana DO Work Phone: [facility] Encounters Encounter Date Encounter Type Care Provider Facility Start: 10-31-2024 End: 10-31-2024 Patient encounter procedure Ellis Maryana DO Work Phone: [facility] Comment on above: Pre-op evaluation; Menorrhagia with regular cycle Start: 10-31-2024 End: 10-31-2024 Preprocedural examination done Ellis Maryana DO Work Phone: [facility] Start: 10-31-2024 End: 10-31-2024 ambulatory ELLIS MARYANA Not Available Start: 10-17-2024 End: 10-17-2024 Bamboo flowsheet Ellis Maryana DO Work Phone: [facility] Start: 10-17-2024 End: 10-24-2024 Bamboo flowsheet Ellis Maryana DO Work Phone: [facility] Start: 10-17-2024 End: 10-24-2024 Clinisync Result Encounter Ellis Maryana DO Work Phone: [facility] Unsolicited Start: 10-17-2024 End: 10-17-2024 Patient encounter procedure Ellsi Maryana DO Work Phone: [facility] Work Phone: Start: 10-17-2024 End: 10-17-2024 Periodic preventive med est patient 18-39 yrs Ellis Maryana DO Work Phone: [facility] Comment on above: Well woman exam with routine gynecological exam; Menorrhagia with regular cycle Start: 10-17-2024 End: 10-17-2024 ambulatory ELLIS MARYANA Not Available Start: 04-29-2023 End: 04-29-2023 Emergency department patient visit GIULIANA Chelsey [facility] Start: 10-07-2022 End: 10-07-[address] DOCTOR OLIVAREZ Facility:[facility] Start: 07-27-2022 End: 07-28-[address] DOCTOR OLIVAREZ Facility:[facility] Start: 07-31-2021 End: 07-31-2021 Subsequent hospital visit by physician [facility] Covid19 Pat Screening Schedule MW PRE ADMIT Comment on above: Suspected 2019-nCoV infection Start: 05-18-2017 Ambulatory Aimee Estrada lity:[facility] Start: 05-02-2017 Ambulatory Aimee Estrada lity:[facility] Start: 04-12-2017 End: 04-14-2017 Evaluation and management of inpatient Aimee Castelan Facility:[facility] Start: 04-05-2017 Ambulatory Aimee Estrada lity:[facility] Start: 02-01-2017 End: 02-01-2017 Ambulatory [facility] Start: 12-16-2016 End: 12-16-2016 Emergency department patient visit Jesús Azul Facility:[facility] Date Procedure Procedure Detail Performing Clinician Start: 10-31-2024 Urnls dip stick/tabl et rgnt non-auto w/o micrscp OSIX DO Work Phone: Start: 10-17-2024 IGP,APTIMA HPV,AGE GDLN OSIX DO Work Phone: Start: 10-14-2023 Cytp cerv/vag auto t hin layer prep mnl screen OSIX DO Work Phone: Start: 07-31-2021 COVID-19, RAPID Giuliana Mckee DO Work Phone: Start: 10-24-2019 Microscopic observat ion [Identifier] in Cervix by Cyto stain [facility] Schedule Plan of Treatment Date Care Activity Detail Author Start: 05-29-2030 DTaP/Tdap/Td vaccine (9 - Td or Tdap) DTaP/Tdap/Td vaccine (9 - Td or Tdap) [facility] Start: 02-19-2025 Influenza vaccination Influenz a Vaccine (Season Ended) [facility] Start: 12-06-2024 End: 12-06-2024 Patient encounter procedure 12/06/2024 1:30 PM EDT Office Visit [facility] [address] [place] [address] Nazia Reid PA [address] [place] [address] [facility] Start: 11-08-2024 End: 11-08-2024 Patient encounter procedure 11/08/2024 1:30 PM EDT Procedure Visit [facility] [address] [place] [id number] Ellis Mijares, DO [address] [place] [address] [facility] Start: 10-31-2024 End: 10-31-2024 Patient encounter procedure 10/31/2024 1:30 PM EDT Procedure [facility] [address] [place] [phone] Ellis Mijares, DO [address] [place] [address] [facility] Start: 10-17-2024 End: 10-17-2025 aPTT in Blood by Coagulation assay APTT Lab Routine Menorrhagia with regular cycle Expected: 10/17/2024 (Approximate), Expires: 10/17/2025 [facility] Comment on above: Expected: 10/17/2024 (Approximate), Expires: 10/17/2025 Start: 10-17-2024 End: 10-17-2025 US Pelvis US Pelvis w/ TV Imaging Routine Menorrhagia with regular cycle Expected: 10/17/2024, Expires: 10/17/2025 [facility] Comment on above: Expected: 10/17/2024 , Expires: 10/17/2025 Start: 10-17-2024 End: 10-17-2024 Patient encounter procedure 10/17/2024 9:00 AM EDT Office Visit [facility] [address] [place] [phone] Ellis Mijares, DO [address] [place] [address] Arrived [facility] Comment on above: Arrived Start: 10-23-2022 Screening for malign ant neoplasm of cervix Pap smear [facility] Start: 02-19-2021 Influenza vaccination Flu vaccine (# 1) [facility] Start: 2010 [facility] Start: 2007 Depression Screen Depression Screen [facility] Start: 2006 HPV vaccine (1 - 2-d ose series) HPV vaccine (1 - 2-dose series) [facility] Start: 2000 COVID-19 Vaccine (1) COVID-19 Vaccin e (1) [facility] Start: 04-06-2000 Varicella vaccine (2 of 2 - 2-dose childhood series) Varicella vaccine (2 of 2 - 2-dose childhood series) [facility] Start: 1995 Hepatitis C screening Hepatitis C sc reen [facility] CBC W Auto Different ial panel - Blood CBC and differential Lab Routine Menorrhagia with regular cycle Ordered: 10/17/2024 [facility] Comment on above: Ordered: 10/17/2024 Cytology Cervical or vaginal smear or scraping study Pap Smear Pathology and Cytology Routine Well woman exam with routine gynecological exam Ordered: 10/17/2024 [facility] Work Phone: Comment on above: Ordered: 10/17/2024 Endometrial biopsy Endometrial b iopsy Procedures Routine Menorrhagia with regular cycle Ordered: 10/31/2024 [facility] Work Phone: Comment on above: Ordered: 10/31/2024 hCG, quantitative, hCG, quantitative, Lab Routine Menorrhagia with regular cycle Ordered: 10/17/2024 [facility] Comment on above: Ordered: 10/17/2024 Hemoglobin A1c/Hemoglobin.total in Blood Hemoglobin A1c Lab Routine Menorrhagia with regular cycle Ordered: 10/17/2024 [facility] Comment on above: Ordered: 10/17/2024 Prothrombin time (PT ) in Blood by Coagulation assay Protime-INR Lab Routine Menorrhagia with regular cycle Ordered: 10/17/2024 [facility] Comment on above: Ordered: 10/17/2024 Thyrotropin [Units/volume] in Serum or Plasma TSH Lab Routine Menorrhagia with regular cycle Ordered: 10/17/2024 [facility] Comment on above: Ordered: 10/17/2024 Thyroxine (T4) free [Mass/volume] in Serum or Plasma T4, free Lab Routine Menorrhagia with regular cycle Ordered: 10/17/2024 [facility] Comment on above: Ordered: 10/17/2024 Immunizations Immunization Date Immunization Notes Care Provider Hilario mittalbri 05-29-2020 influenza virus vacc ine, unspecified formulation Ellis Mijares DO Work Phone: [facility] 04-22-2016 tetanus toxoid, redu dorie diphtheria toxoid, and acellular pertussis vaccine, adsorbed Mwh Schedule [facility] Payers Date Payer Category Payer Private Health Insurance [facility] [id number] 2017 Unknown [id number] 2015 Unknown [id number] 1995 Unknown [id number] 1995 Unknown [id number] 1995 Unknown [id number] 1995 Unknown [id number] 1995 Unknown 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 female who presents for No chief complaint on file. Patient presents today for Pre Op/Endometrial Biopsy appointment. Patient is scheduled to undergo Endometrial Ablation with Ana on 11/24/[address] Mijares at [facility]. MEDICATIONS No current outpatient medications ALLERGIES No Known Allergies PROBLEMS Active Ambulatory Problems Diagnosis Date Noted No Active Ambulatory Problems Resolved Ambulatory Problems Diagnosis Date Noted No Resolved Ambulatory Problems No Additional Past Medical History HISTORY PAST MEDICAL HISTORY SOCIAL HISTORY No past medical history on file. Social History Tobacco Use Smoking status: Not on file Smokeless tobacco: Not on file Substance Use Topics Alcohol use: Not on file Drug use: Not on file FAMILY HISTORY No family history on file. SURGICAL HISTORY History reviewed. No pertinent surgical history. REVIEW OF SYSTEMS Review of Systems: Review of Systems Constitutional: Negative. HENT: Negative. Eyes: Negative. Respiratory: Negative. Cardiovascular: Negative. Gastrointestinal: Negative. Genitourinary: Positive for menstrual problem. Musculoskeletal: Negative. Skin: Negative. Neurological: Negative. All other systems reviewed and are negative. Hematological: Negative. Endocrine: Negative. Allergic/Immunologic: Negative. OBJECTIVE Objective: Physical Exam Constitutional: Appearance: Normal appearance. She is well-developed. Genitourinary: Vulva normal. Cardiovascular: Rate and Rhythm: Normal rate and regular rhythm. Pulmonary: Effort: Pulmonary effort is normal. Breath sounds: Normal breath sounds. Abdominal: General: Bowel sounds are normal. There is no distension. Palpations: Abdomen is soft. Tenderness: There is no abdominal tenderness. There is no guarding or rebound. Musculoskeletal: General: No swelling. Normal range of motion. Right lower leg: No edema. Left lower leg: No edema. Neurological: Mental Status: She is alert and oriented to person, place, and time. Skin: General: Skin is warm and dry. Psychiatric: Mood and Affect: Mood normal. Behavior: Behavior normal. Vitals and nursing note reviewed. Exam conducted with a adult education professional present. Vitals: Estimated body mass index is 22.83 kg/m as calculated from the following: Height as of 10/07/22: 5' 4 . Weight as of this encounter: 133 lb. BP: 118/68 Patient's last menstrual period was 10/01/2024 (approximate). ASSESSMENT & PLAN ICD-10-CM 1. Pre-op evaluation Z01.818 POCT urinalysis dipstick manually resulted POCT , urine manually resulted 2. Menorrhagia with regular cycle N92.0 Endometrial biopsy EMBX: Patient was placed in dorsal lithotomy position with feet in stirrups. A sterile speculum was placed into the vagina and the cervix was visualized. The cervix was grasped with a single tooth tenaculum. The endometrial pipette was placed through the cervix into the uterus, endometrial curettage was performed and sampling was obtained, endometrial curettings were placed in formalin, and single tooth tenaculum was removed. Excellent hemostasis was assured. All instruments were removed from vagina. Pre Op: Patient is doing well but has complaints of menorrhagia. I have discussed conservative management vs. surgical management with the patient in detail and patient desires surgical management at this time. Patient will undergo Endometrial Ablation with Ana on 11/24/24. Surgical consents were signed, mmc was reviewed, and patient is to proceed to [facility]. Follow Up: Patient is to follow up between 1-2 weeks post operative to assess proper healing and recovery from procedure. Documented by Kimberly Resendiz LPN on behalf of: Ellis Mijares DO documented in this encounter [facility] History of Present illness Narrative 10-17-2024 Shruthi Arredondo LPN - 10/17/2024 9:00 AM EDT Note Date & Type Note Facility 10-17-2024 History of Presen t illness Narrative Reason for Appointment: Patient ID: Femi Kramer is a 29 y.o. female who presents for Well Women Visit Patient presents today for Annual Exam. and Consult appointment. MEDICATIONS No current outpatient medications ALLERGIES No Known Allergies PROBLEMS Active Ambulatory Problems Diagnosis Date Noted No Active Ambulatory Problems Resolved Ambulatory Problems Diagnosis Date Noted No Resolved Ambulatory Problems No Additional Past Medical History HISTORY PAST MEDICAL HISTORY SOCIAL HISTORY No past medical history on file. Social History Tobacco Use Smoking status: Not on file Smokeless tobacco: Not on file Substance Use Topics Alcohol use: Not on file Drug use: Not on file FAMILY HISTORY No family history on file. SURGICAL HISTORY No past surgical history on file. REVIEW OF SYSTEMS Review of Systems: Review of Systems OBJECTIVE Objective: OBGyn Exam Vitals: Estimated body mass index is 22.49 kg/m as calculated from the following: Height as of 10/07/22: 5' 4 . Weight as of this encounter: 131 lb. BP: 108/68 No LMP recorded. ASSESSMENT & PLAN ICD-10-CM 1. Well woman exam with routine gynecological exam Z01.419 Pap Smear Annual Exam: Patient presents today for an annual exam. Patient states she is doing well and has complaints of irregular cycle this month. Patients complaints of heavy cycles. Discussed options with patient from conservative verses surgical management. Patient desires to proceed with surgical management via Endometrial Ablation. Patient already has bilateral tubal ligation. Pap was obtained without difficulty. Follow Up: Patient is to return for Endometrial biopsy/Pre-op & in one year for annual unless needed otherwise. Documented by Shruthi Arredondo LPN on behalf of: Ellis Mijares DO documented in this encounter [facility] Clinical Note 05-31-2020 Note Date & Type Note Facility 05-31-2020 Note The following Patien t Education Materials have been given to the patient: EducationMaterial [facility] Discharge summary note 05-31-2020 Note Date & Type Note Facility 05-31-2020 Note Patient: MÓNICA KRAMER Age: 24 years Sex: Female : 1995 Associated Diagnoses: None Author: TAWANDA SARMIENTO, Ludivina Phillip Basic Information 24 yo PPD#2 s/p , doing well. Ambulating, voiding, jon reg diet, pain well controlled with po pain meds. Bottle feeding going well. Desires BTL for PP contraception. Lochia normal. Admit date: 05/29/20 Discharge date: 05/31/20 Condition: stable Discharge diagnoses: 1. TIUP 2. Depression 3. h/o HSV 4. Desires permanent sterilization Procedures: 1. 2. Epidural Consultations: none Disposition: home Discharge diet: regular Discharge meds: ibuprofen OTC prn Hospital course: Patient admitted for scheduled IOL. Progressed to complete and went on to deliver without complication. Please see delivery note for further details about delivery. On PPD#2 pt was ambulating, voiding, jon reg diet, pain well controlled, and bottle feeding. Ready for discharge. Pt would like bilat salpingectomy for PP contraception. Discharge restrictions: No lifting >20# for 4 wks, nothing in vagina x4 wks, no strenuous activity x4 wks. Call if Temp >100.4, uncontrolled pain or N/V, bleeding soaking more than 1 pad/hr. Review of Systems Constitutional: Negative. Eye: Negative. Ear/Nose/Mouth/Throat: Negative. Respiratory: Negative. Cardiovascular: Negative. Breast: Negative. Gastrointestinal: Negative. Genitourinary: Negative. Gynecologic: bleeding. Hematology/Lymphatics: Negative. Endocrine: Negative. Immunologic: Negative. Musculoskeletal: Negative. Integumentary: Negative. Neurologic: Negative. Psychiatric: Negative. All other systems are negative Health Status Allergies: Allergic Reactions (Selected) No Known Allergies Current medications: (Selected) Inpatient Medications Ordered Lanolin: 1 ubaldo, Ointment, Topical, q2hr PRN Dry skin, Routine, Start date 05/29/20 15:37:00 EST Multivitamins with Folic Acid 1 mg Tab: 1 tab(s), Tab, Oral, qAM, Routine, Start date 05/30/20 7:30:00 EST acetaminophen 325 mg Tab: 975 mg = 3 tab(s), Tab, Oral, q8hr PRN Headache, Routine, Start date 05/29/20 15:37:00 EST acetaminophen-codeine 300 mg-30 mg Tab: 1 tab(s), Tab, Oral, q6hr PRN Pain 1-3, Routine, Start date 05/29/20 15:37:00 EST acetaminophen-codeine 300 mg-30 mg Tab: 2 tab(s), Tab, Oral, q6hr PRN Pain 4-7, Routine, Start date 05/29/20 15:37:00 EST benzocaine-menthol 20%-0.5% topical spray: 1 spray(s), [place], Topical, q4hr PRN Pain, Routine, Start date 05/29/20 15:37:00 EST calcium carbonate 500 mg Chew Tab: 500 mg = 1 tab(s), Tab-Chew, Oral, q6hr PRN Control of stomach acid, Routine, Start date 05/29/20 15:37:00 EST docusate sodium 100 mg Cap: 100 mg = 1 cap(s), Cap, Oral, BID, Routine, Start date 05/29/20 21:00:00 EST hydrocortisone 2.5% Rectal Crm w/Appl: 1 ubaldo, Cream-Ubaldo, Rectal, QID PRN Other (see comment), Routine, Start date 05/29/20 15:37:00 EST hydrocortisone 25 mg Supp: 25 mg = 1 supp, Supp, Rectal, BID PRN Other (see comment), Routine, Start date 05/29/20 15:37:00 EST ibuprofen 600 mg Tab: 600 mg = 1 tab(s), Tab, Oral, q6hr PRN Other (see comment), Routine, Start date 05/29/20 15:37:00 EST simethicone 80 mg Chew Tab: 80 mg = 1 tab(s), Tab-Chew, Oral, QID PRN Gas, Routine, Start date 05/29/20 15:37:00 EST witch jose rectal 50% pad: 1 ubaldo, Pad, Topical, q4hr PRN Other (see comment), Routine, Start date 05/29/20 15:37:00 EST zolpidem 5 mg Tab: 5 mg = 1 tab(s), Tab, Oral, Bedtime PRN Sleep for 7 day(s), Stop date 06/05/20 15:36:00 EST, Routine, Start date 05/29/20 15:37:00 EST Prescriptions Prescribed PNV oral tablet: 1 tab(s), Oral, Daily, 90 tab(s), Refill(s) 4, ANY VITAMIN, [facility], 163, cm, 11/07/19 8:38:00 EDT, Height/Length Measured, 71.9, kg, 11/07/19 8:38:00 EDT, Weight Measured valacyclovir 500 mg Tab: 500 mg = 1 tab(s), Oral, q12hr, # 30 tab(s), Refills(s) 1, Pharmacy: [facility], 163, cm, 04/25/20 11:47:00 EST, Height/Length Dosing, 78.1, kg, 04/25/20 11:47:00 EST, Weight Dosing Physical Examination Vital Signs 05/30/2020 20:16 EST Temperature Oral 36.5 DegC Heart Rate Monitored 67 bpm Systolic Blood Pressure 116 mmHg Diastolic Blood Pressure 68 mmHg Mean Arterial Pressure, Monitered 84 mmHg SpO2 98 % 05/30/2020 20:16 EST Respiratory Rate 16 br/min Blood Pressure Location Right arm Mean Arterial Pressure, Cuff 84 mmHg Hourly Rounding Yes General: Alert and oriented, No acute distress. Eye: Pupils are equal, round and reactive to light. HENT: Normocephalic, Normal hearing, Oral mucosa is moist. Respiratory: Lungs are clear to auscultation, Respirations are non-labored, Breath sounds are equal, Symmetrical chest wall expansion. Cardiovascular: Normal rate, Regular rhythm, Normal peripheral perfusion. Gastrointestinal: Soft, Non-tender, Non-distended, Normal bowel sounds. Musculoskeletal Normal range of motion. Normal strengt (more content not included)... [facility] Comment on above: Result Comment: Elec tronically Signed By: TAWANDA SARMIENTO, Ludivina Phillip\.portillo\Date and Time Signed: 05/31/20 06:54 EST History and physical note 05-29-2020 Note Date & Type Note Facility 05-29-2020 Note Patient: MÓNICA KRAMER Age: 24 years Sex: Female : 1995 Associated Diagnoses: None Author: Ludivina GARDNER MD Basic Information Reason for admission: Scheduled induction. Maternal complications: Depression, h/o HSV. Informed consent obtained for anesthesia and procedure. Gestational Age: Gestational Age (EGA) and LETY * Note: EGA calculated as of 05/29/2020 LETY: 06/05/2020 EGA*: 39 weeks Type: Authoritative Method Date: 08/30/2019 Method: Last Menstrual Period (08/30/2019) Confirmation: Confirmed Description: -- Comments: -- Entered by: Kaylyn Lobo LPN on 10/24/2019 Other LETY Calculations for this : No additional LETY calculations have been recorded for this . Chief Complaint 05/29/2020 7:40 EST induction History of Present Illness Patient is Para Information: : 2 Para Term: 1 Para : 0 Para Abortions: 0 Para Livin. Review of Systems Constitutional: Negative. Eye: Negative. Ear/Nose/Mouth/Throat: Negative. Respiratory: Negative. Cardiovascular: Negative. Breast: Negative. Gastrointestinal: Negative. Genitourinary: Negative. Gynecologic: Negative. Hematology/Lymphatics: Negative. Endocrine: Negative. Immunologic: Negative. Musculoskeletal: Negative. Integumentary: Negative. Neurologic: Negative. Psychiatric: Negative. All other systems are negative Health Status Allergies: Allergic Reactions (Selected) No Known Allergies Problem list: All Problems Supervision of normal in third trimester / SNOMED CT 131467163 / Confirmed / SNOMED CT 910669666 / Confirmed Genital herpes simplex virus (HSV) infection in mother affecting / SNOMED CT 9686244571 / Confirmed Depression during , antepartum / SNOMED CT 4680841706 / Confirmed Histories History History (0,0,0,1) # 1 Baby 1 Outcome Date: 04/12/2017 Outcome: Live Outcome or Result: Vaginal Gender: Female Gest Age: 37 weeks Wt: 3033 g Hospital: [facility] Labor: -- Child's Name: -- Baby's Father: -- Comment: Tenzin Family History: Hypertension Grandparent Diabetes mellitus type 1 Grandparent Procedure history: Tonsillectomy ([id number]). 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 Substance Abuse Denies Substance Abuse (11/07/2019) DENIES Tobacco Denies Tobacco Use (10/24/2019) Never (less than 100 in lifetime) Tobacco Use:. Never Smokeless Tobacco Use:. Psychosocial History Family/Social (05/29/20) Emotional Support Available: Yes Father of Baby Involved: Yes Domestic Violence Screen (05/29/20) Have You Ever Been Emotionally Or Physically Abused by Your Partner: No Have You Been Physically Hurt by Someone Within the Past Year: No Within the Last Year, Has Anyone Forced You to Have Sexual Activity: No . Physical Examination Vital Signs 05/29/2020 7:30 EST Temperature Oral 36.6 DegC Heart Rate Monitored 86 bpm Respiratory Rate 16 br/min Systolic Blood Pressure 133 mmHg Diastolic Blood Pressure 82 mmHg Mean Arterial Pressure, Cuff 99 mmHg Hourly Rounding Yes General: Alert and oriented, No acute distress. Eye: Extraocular movements are intact. HENT: Normocephalic, Normal hearing, Oral mucosa is moist. Respiratory: Respirations are non-labored. Cardiovascular: Normal rate, Regular rhythm, Normal peripheral perfusion. Gastrointestinal: Soft, Non-tender, gravid. Obstetric Exam Contractions noted: regular pattern. Tyler/ Baby A evaluation: movement present, heart tones reactive, assessment of heart tracing reassuring heart rate. Cervix: dilated 4 cm, station/ evidence of descent -3, membrane status ruptured artificially, amniotic fluid (moderate amount, clear fluid). Musculoskeletal Normal range of motion. Normal strength. Integumentary: Warm, Dry. Neurologic: Alert, Oriented. Psychiatric: Cooperative, Appropriate mood & affect. Impression and Plan 24 yo @ 39 wga with h/o depression and HSV 1. Admitted, previously consented 2. Pitocin for induction 3. AROM performed - clear fluid 4. Epidural prn Ludivina Gardner MD [facility] Comment on above: Result Comment: Elec tronically Signed By: TAWANDA SARMIENTO, Ludivina J\.br\Date and Time Signed: 05/29/20 16:56 EST Clinical Note 02-29-2020 Note Date & Type Note Facility 02-29-2020 Note Allergy and Immunolo gy Immunizations and Immunizations can help keep you healthy. They can also protect your baby from some diseases until your baby can receive vaccines. If you are or planning a , the vaccines you need are determined by your: ? Age. ? Lifestyle. ? Medical history. ? Travel plans. ? Previous vaccines. Vaccine benefits usually outweigh risks in women when: ? The risk of disease exposure is high. ? Infection would pose a risk to you or your unborn baby. ? The vaccine is unlikely to cause harm. IMMUNIZATIONS BEFORE If possible, make sure that your immunizations are up-to-date before becoming . Before your , it is safe and important for you to receive weakened viral and bacterial (inactivated ) vaccines as needed. Live viral and live bacterial (attenuated ) vaccines should be given 1 month or more before . Some examples of attenuated vaccines include: ? Adenovirus. ? Live attenuated influenza vaccine (LAIV). ? Measles, mumps, and rubella (MMR). ? Measles, mumps, rubella, and varicella (MMRV). ? Polio (IPV). ? Rotovirus (RV5 or RV1). ? Smallpox (vaccinia ). ? Typhoid (capsule form of the vaccine). ? Varicella (CORNELIA). ? Yellow fever (YF). If you become within 1 month after receiving an attenuated vaccine, contact your caregiver. IMMUNIZATIONS DURING During your , it is safe and important for you to receive inactivated vaccines as needed. Until your baby can receive vaccines, your baby will get some protection to diseases from your vaccines. You should receive inactivated influenza (IIV) and adult tetanus, diphtheria, and acellular pertussis vaccines (Tdap) during your . ? IIV. The inactivated seasonal flu shot will protect you and your baby (up to 6 months of age) from some complications and strains of influenza. women can receive IIV at any time and during any trimester. ? Tdap. This vaccine will help prevent pertussis (whooping cough) in you and your baby. You should receive 1 dose of this vaccine during each . It is recommended that this vaccine be received during the 27th through 36th week of . Attenuated vaccines are not usually given to women. There is a possible risk of passing the vaccine virus or bacteria to the unborn baby. If you are and received an attenuated vaccine, contact your caregiver. Risks versus benefits should always be determined before a woman gets immunized with an attenuated vaccine. IMMUNIZATIONS AFTER After your , it is safe and important for you to receive vaccines as needed. This is true even if you are . If you did not receive the Tdap vaccine during your , you should receive the vaccine right after delivery. You should receive MMR or MMRV within days after delivery if you are not immune to measles, mumps, rubella, or varicella. IMMUNIZATIONS FOR INTERNATIONAL TRAVELERS If you are and planning international travel, talk to your caregiver at least 4 to 6 weeks before your trip. Discuss precautions or vaccine options. The risk of disease and immunization should always be determined before you receive vaccines. Immunizations that are recommended for international travelers include: ? Hepatitis B (HepB). ? IIV. ? Tdap or Td. ? Hepatitis A (HepA). Immunizations that should be delayed or given only when benefits outweigh the risk of disease exposure for international travelers include: ? Hungarian encephalitis (JE). ? Meningococcal meningitis (MPSV4 or MCV4). ? Pneumococcal polysaccharide (PPSV23). ? IPV. ? Rabies. ? Typhoid. ? YF. Immunizations that should not be given to international travelers include: ? BCG tuberculosis. ? MMR. ? MMRV. ? Human papillomavirus (HPV4 or HPV2). ? CORNELIA. ? LAIV. Document Released: 06/26/2008 Document Revised: 08/29/2012 Document Reviewed: 07/21/2012 ExitCare? Patient Information ?2013 [employer] [facility]. [facility] Clinical Note 02-01-2020 Note Date & Type Note Facility 02-01-2020 Note Allergy and Immunolo gy Immunizations and Immunizations can help keep you healthy. They can also protect your baby from some diseases until your baby can receive vaccines. If you are or planning a , the vaccines you need are determined by your: ? Age. ? Lifestyle. ? Medical history. ? Travel plans. ? Previous vaccines. Vaccine benefits usually outweigh risks in women when: ? The risk of disease exposure is high. ? Infection would pose a risk to you or your unborn baby. ? The vaccine is unlikely to cause harm. IMMUNIZATIONS BEFORE If possible, make sure that your immunizations are up-to-date before becoming . Before your , it is safe and important for you to receive weakened viral and bacterial (inactivated ) vaccines as needed. Live viral and live bacterial (attenuated ) vaccines should be given 1 month or more before . Some examples of attenuated vaccines include: ? Adenovirus. ? Live attenuated influenza vaccine (LAIV). ? Measles, mumps, and rubella (MMR). ? Measles, mumps, rubella, and varicella (MMRV). ? Polio (IPV). ? Rotovirus (RV5 or RV1). ? Smallpox (vaccinia ). ? Typhoid (capsule form of the vaccine). ? Varicella (CORNELIA). ? Yellow fever (YF). If you become within 1 month after receiving an attenuated vaccine, contact your caregiver. IMMUNIZATIONS DURING During your , it is safe and important for you to receive inactivated vaccines as needed. Until your baby can receive vaccines, your baby will get some protection to diseases from your vaccines. You should receive inactivated influenza (IIV) and adult tetanus, diphtheria, and acellular pertussis vaccines (Tdap) during your . ? IIV. The inactivated seasonal flu shot will protect you and your baby (up to 6 months of age) from some complications and strains of influenza. women can receive IIV at any time and during any trimester. ? Tdap. This vaccine will help prevent pertussis (whooping cough) in you and your baby. You should receive 1 dose of this vaccine during each . It is recommended that this vaccine be received during the 27th through 36th week of . Attenuated vaccines are not usually given to women. There is a possible risk of passing the vaccine virus or bacteria to the unborn baby. If you are and received an attenuated vaccine, contact your caregiver. Risks versus benefits should always be determined before a woman gets immunized with an attenuated vaccine. IMMUNIZATIONS AFTER After your , it is safe and important for you to receive vaccines as needed. This is true even if you are . If you did not receive the Tdap vaccine during your , you should receive the vaccine right after delivery. You should receive MMR or MMRV within days after delivery if you are not immune to measles, mumps, rubella, or varicella. IMMUNIZATIONS FOR INTERNATIONAL TRAVELERS If you are and planning international travel, talk to your caregiver at least 4 to 6 weeks before your trip. Discuss precautions or vaccine options. The risk of disease and immunization should always be determined before you receive vaccines. Immunizations that are recommended for international travelers include: ? Hepatitis B (HepB). ? IIV. ? Tdap or Td. ? Hepatitis A (HepA). Immunizations that should be delayed or given only when benefits outweigh the risk of disease exposure for international travelers include: ? Hungarian encephalitis (JE). ? Meningococcal meningitis (MPSV4 or MCV4). ? Pneumococcal polysaccharide (PPSV23). ? IPV. ? Rabies. ? Typhoid. ? YF. Immunizations that should not be given to international travelers include: ? BCG tuberculosis. ? MMR. ? MMRV. ? Human papillomavirus (HPV4 or HPV2). ? CORNELIA. ? LAIV. Document Released: 06/26/2008 Document Revised: 08/29/2012 Document Reviewed: 07/21/2012 ExitCare? Patient Information ?2013 [facility]. [facility] Evaluation note Note Date & Type Note Facility Evaluation note Diagnosis Suspected 2019-nCoV infection documented in this encounter fypio Phone: Evaluation note Note Date & Type Note Facility Evaluation note Diagnosis Well woman exam with routine gynecological exam Routine gynecological examination Menorrhagia with regular cycle documented in this encounter [facility] Evaluation note Note Date & Type Note Facility Evaluation note Diagnosis Pre-op evaluation Menorrhagia with regular cycle documented in this encounter [facility] Summary Purpose Family History No Family History Records FoundNo Family History Records FoundNo Family History Records FoundNo Family History Records FoundNo Family History Records FoundNo Family History Records FoundNo Family History Records FoundNo Family History Records FoundNo Family History Records Found Advance Directives No Advanced Directives Records FoundDocuments on File Type Date 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 ACP-Advance Directive ACP-Power of Call Worker Latest Code Status on File Code Status Date Activated Date Inactivated Comments Full Code 04/22/2016 9:51 PM 04/23/2016 1:04 PM Additional Source Comments INFORMATION SOURCE (unrecogn ized section and content) DATE CREATED AUTHOR 12/10/2017 [facility] DATE CREATED AUTHOR AUTHOR'S ORGANIZ ATION 12/15/2017 [facility] DATE CREATED AUTHOR AUTHOR'S ORGANIZ ATION 12/15/2017 [facility] DATE CREATED AUTHOR AUTHOR'S ORGANIZ ATION 01/11/2020 [facility] DATE CREATED AUTHOR AUTHOR'S ORGANIZ ATION 2020 [facility] DATE CREATED AUTHOR AUTHOR'S ORGANIZ ATION 01/01/2021 [facility] DATE CREATED AUTHOR AUTHOR'S ORGANIZ ATION 10/16/2022 [facility] DATE CREATED AUTHOR AUTHOR'S ORGANIZ ATION 05/01/2023 [facility] DATE CREATED AUTHOR AUTHOR'S ORGANIZ ATION 11/01/2024 [facility] EPIC Care Teams (unrecognized sec tion and content) Customer Sales Distributor Relationship Specialty Start Date End Date Giuliana Mckee DO [address] [place] [address] PCP - General 03/22/16 Customer Sales Distributor Relationship Specialty Start Date End Date Giuliana Mckee DO [address] [place] [address] PCP - General Internal Medicine 10/14/23 Ellis Mijares DO [facility] [place] [address] PCP - [facility] 09/20/23 Customer Sales Distributor Relationship Specialty Start Date End Date Giuliana Mckee DO [address] [place] [address] PCP - General Internal Medicine 10/14/23 Ellis Mijares DO [facility] [place] [address] PCP - [facility] 09/20/23 Customer Sales Distributor Relationship Specialty Start Date End Date Giuliana Mckee DO [address] [place] [address] PCP - General Internal Medicine 10/14/23 Ellis Mijares DO [address] [facility] [place] [address] PCP - [facility] 09/20/23 Reason for Visit (unrecogniz ed section and content) Reason Comments Well Women Visit FOR RECORDS PERTAINING TO PATIENTS WHO ARE OR HAVE BEEN ENROLLED IN A CHEMICAL DEPENDENCY/SUBSTANCEABUSE PROGRAM, SOME INFORMATION MAY BE OMITTED. This clinical summary was aggregated from multiple sources. Caution should be exercised in using it in the provision of clinical care. This summary normalizes information from multiple sources, and as a consequence, information in this document may materially change the coding, format and clinical context of patient data. In addition, data may be omitted in some cases. CLINICAL DECISIONS SHOULD BE BASED ON THE PRIMARY CLINICAL RECORDS. [employer] provides no warranty or guarantee of the accuracy or completeness of information in this document.
== END 2024-10-31 12:50 | disposition home or self-care (01) ==
LOC: LAB 12:49
PROVIDERS: Visit Provider Obstetrics & Gynecology
DX: N92.0 Excessive and frequent menstruation with regular cycle (principal)

== ENCOUNTER 2024-11-08 14:24 | Outpatient (REF) | payer OTHER, SELFPAY | END 2024-11-08 14:25 | disposition home or self-care (01) | LOC: LAB 14:24 | PROVIDERS: Visit Provider Obstetrics & Gynecology | DX: R87.610 Atypical squamous cells of undetermined significance on cytologic smear of cervix (ASC-US) (principal); R87.810 Cervical high risk human papillomavirus (HPV) DNA test positive ==

== ENCOUNTER 2024-12-13 15:13 | Outpatient (OUT) | payer OTHER, SELFPAY ==
--- OUTSIDE RECORDS SUMMARY | 2024-12-13 14:10 | XMS_ITS | Encounter Summary ---
Author Organization [facility] Address [address] [place] [address] Care Team Providers Care Tyre Builder Name Role Phone Giuliana Drummond DO Primary Care Provider [phone] Ellis Mijares DO Unavailable Reason for Visit * Reason Comments Pre-op Visit Encounter Details Date Type Department Care Team (Late Contact Info) Description 12/13/2024 2:10 PM EDT Consult [facility] [address] [place] [address] Ellis Mijares DO [address] [place] [address] Pre-op examination; Menorrhagia with regular cycle; Abnormal uterine bleeding (AUB); Pelvic pain Social History Tobacco Use Types Packs/Day Years Used Date Smoking Tobacco: Never Assessed Comments No Sex and Gender Information Value Date Recorded Sex Assigned at Female 10/13/2023 11:34 AM EDT Legal Sex Female 11:19 PM EDT Gender Identity Female 10/13/2023 11:34 AM EDT Sexual Orientation Not on file documented as of this encounter Last Filed Vital Signs Vital Sign Reading Time Taken Comments Blood Pressure 112/62 12/13/2024 2:39 PM EDT Pulse - - Temperature - - Respiratory Rate - - Oxygen Saturation - - Inhaled Oxygen Concentration - - Weight 57.2 kg (126 lb) 12/13/2024 2:39 PM EDT Height - - Body Mass Index 21.63 11/08/2024 2:07 PM EDT documented in this encounter Plan of Treatment Upcoming Encounters Date Type Department Care Team (Late st Contact Info) Description 01/23/2025 1:30 PM EDT Office Visit [facility] [address] [facility] [place] [phone] Nazia Reid PA [address] [place] [address] 05/15/2025 2:00 PM EST Procedure [facility] [address] [facility] [place] [phone] Ellis Mijares DO [address] [place], [place] [id number] documented as of this encounter Visit Diagnoses Diagnosis Pre-op examination Menorrhagia with regular cycle Abnormal uterine bleeding (AUB) Pelvic pain documented in this encounter Care Teams Tyre Builder Relationship Specialty Start Date End Date Giuliana Drummond DO [facility] [place] [address] PCP - General Internal Medicine 10/14/23 Ellis Mijares DO [address] [place], [place] [address] PCP - [facility] 09/20/23 documented as of this encounter
--- OUTSIDE RECORDS SUMMARY | 2024-12-13 15:16 | XMS_ITS | Encounter Summary ---
Author Organization [facility] Address [address] [place] [address] Care Team Providers Care Art Gallery Director Name Role Phone Giuliana Drummond DO Primary Care Provider [phone] Ellis Mijares DO Unavailable Encounter Details Date Type Department Care Team (Late st Contact Info) Description 10/31/2024 Abstract [facility] [address] [place] [address] [place] [address] Ellis Mijares DO [address] [place] [address] Dr Tracey [place], [facility] Social History Tobacco Use Types Packs/Day Years Used Date Smoking Tobacco: Never Assessed Comments No Sex and Gender Information Value Date Recorded Sex Assigned at Female 10/13/2023 11:34 AM EDT Legal Sex Female 11:19 PM EDT Gender Identity Female 10/13/2023 11:34 AM EDT Sexual Orientation Not on file documented as of this encounter Plan of Treatment Upcoming Encounters Date Type Department Care Team (Late st Contact Info) Description 01/23/2025 1:30 PM EDT Office Visit [facility] [address] [place], [place] [address] [address] Nazia Reid PA [address] [place] [address] [place] [address] 05/15/2025 2:00 PM EST Procedure Visit [facility] [address] [place], [place] [address] [address] Ellis Mijares DO [address] [place], [place] [id number] documented as of this encounter Visit Diagnoses Not on filedocumented in this encounter Care Teams Art Gallery Director Relationship Specialty Start Date End Date Giuliana Drummond DO [address] [place] [phone] PCP - General Internal Medicine 10/14/23 Ellis Mijares DO [address] [place] [address] PCP - [facility] 09/20/23 documented as of this encounter
--- OUTSIDE RECORDS SUMMARY | 2024-12-13 15:16 | XMS_ITS | Encounter Summary ---
Author Organization [facility] Address [address] [place] [address] Care Team Providers Care Columnist/Commentator Name Role Phone Giuliana Drummond DO Primary Care Provider [phone] Ellis Mijares DO Unavailable Encounter Details Date Type Department Care Team (Late st Contact Info) Description 10/24/2024 Orders Only [facility] OB [address] [place] [address] [place] [address] Lindsey Mclain LPN [address] [facility] [address] [facility] [address] [place] [address] Social History Tobacco Use Types Packs/Day Years Used Date Smoking Tobacco: Never Assessed Comments Unknown Sex and Gender Information Value Date Recorded Sex Assigned at Female 10/13/2023 11:34 AM EDT Legal Sex Female 11:19 PM EDT Gender Identity Female 10/13/2023 11:34 AM EDT Sexual Orientation Not on file documented as of this encounter Plan of Treatment Upcoming Encounters Date Type Department Care Team (Late st Contact Info) Description 01/23/2025 1:30 PM EDT Office Visit [facility] [address] [place] [address] [place] [address] Nazia Reid PA [address] [facility] [place] [address] 05/15/2025 2:00 PM EST Procedure Visit [facility] OB [address] [place] [address] [place] [address] Ellis Mijares DO [address] [place] [address] documented as of this encounter Procedures Procedure Name Priority Date/Time Associated Diagnosis Comments PAP SMEAR Routine 10/17/2024 12:00 AM EDT documented in this encounter Results * (ABNORMAL) Pap Smear (10/17/2024 12:00 AM EDT) Swab Cervical swab / Unknown us Maryana Nurse [facility] CYTOLOGY ORDERABLES Final Result EXTERNAL LAB documented in this encounter Visit Diagnoses Not on filedocumented in this encounter Care Teams Columnist/Commentator Relationship Specialty Start Date End Date Giuliana Drummond DO [address] [place] [address] PCP - General Internal Medicine 10/14/23 Ellis Mijares DO [address] [place] [address] PCP - [facility] 09/20/23 documented as of this encounter
--- OUTSIDE RECORDS SUMMARY | 2024-12-13 15:16 | XMS_ITS | Clinical Summary ---
Author Organization [facility] Address [address] [place] [address] Care Team Providers Care Dining Room Busser Name Role Phone Giuliana Drummond Primary Care Provider [phone] Allergies No known active allergies Medications Pseudoephedrine -DM-GG 60-15-400 MG TABS Take 1 tablet by mouth every 4-6 hours as needed (not to exceed 4 tablets in 24 hours) 30 tablet 11/13/2024 Active loratadine (CLARITIN) 10 MG tablet Take 1 tablet by mouth daily 30 tablet 11/13/2024 Active Active Problems Problem Noted Date Diagnosed Date Anxiety 10/11/2019 Acid reflux 03/06/2013 Resolved Problems Problem Noted Date Diagnosed Date Resolved Date LOC (loss of consciousness) 04/22/2016 06/01/2016 Head trauma 04/22/2016 06/01/2016 Headache 12/07/2013 06/01/2016 Costochondritis 03/06/2013 10/11/2019 Encounters Date Type Department Care Team Description 11/13/2024 12:33 PM EDT - 11/13/2024 1:33 PM EDT Emergency [facility] Emergency Department [address] [place] [address] Surendra Louise MD Nonspecific syndrome suggestive of viral illness (Primary Dx) Discharge Disposition: Home or Self Care 11/13/2024 Travel from Last 3 Months Immunizations Immunization Administration Dates Next Due DTP/HiB 03/07/1996,1995,1995 DTaP vaccine 01/13/2000,10/31/1996 Hep B, ENGERIX-B, RECOMBIVAX -HB, (age - 19y), IM, 0.5mL 03/07/1996,1995,1995 Hib vaccine 10/31/1996 Influenza Virus Vaccine 05/29/2020,04/14/2017 MMR, PRIORIX, M-M-R II, (age 12m+), SC, 0.5mL 01/13/2000,10/31/1996 Polio OPV 01/13/2000, 6,1995,1995 Rabies 04/29/2023 TDaP, ADACEL (age 10y-64y), BOOSTRIX (age 10y+), IM, 0.5mL 05/29/2020,03/08/2020,04/22/2016 Varicella, VARIVAX, (age 12m +), SC, 0.5mL 01/13/2000 Family History Medical History Relation Name Comments Diabetes Maternal Grandfather Heart Disease Maternal Grandfather Relation Name Status Comments Maternal Grandfather Social History Tobacco Use Types Packs/Day Years Used Date Smoking Tobacco: Never Smokeless Tobacco: Never Alcohol Use Standard Drinks/Week Comments No 0 (1 standard drink = 0.6 oz pur e alcohol) AUDIT-C Answer Date Recorded Q1: How often do you have a drink containing alcohol? Never 11/13/2024 Q2: How many drinks containi ng alcohol do you have on a typical day when you are drinking? Patient does not drink Q3: How often do you have si x or more drinks on one occasion? Never 11/13/2024 Overall Financial Resource Strain (CARDIA) Answe r Date Recorded How hard is it for you to pa y for the very basics like food, housing, medical care, and heating? Not hard at all 05/10/2023 PHQ-2 Answer Date Recorded PHQ-9 Total Score 0 04/29/2023 Hunger Vital Sign Answer Date Recorded Within the past 12 months, y ou worried that your food would run out before you got the money to buy more. Never true 05/10/20 23 Within the past 12 months, t he food you bought just didn't last and you didn't have money to get more. Never true 05/10/2023 PRAPARE - Transportation Answer Date Re corded Lack of Transportation (Medical) Not on file 05/10/2023 In the past 12 months, has l ack of transportation kept you from meetings, work, or from getting things needed for daily living? No 05/10/2023 Housing Stability Vital Sign Answer Christiano e Recorded Unable to Pay for Housing in the Last Year Not o n file 05/10/2023 Number of Places Lived in the Last Year Not on f ile 05/10/2023 In the last 12 months, was t here a time when you did not have a steady place to sleep or slept in a usp (including now)? No 05/10/2023 Food Insecurity Answer Date Recorded Within the past 12 months, y ou worried that your food would run out before you got the money to buy more. 1 05/10/2023 Within the past 12 months, t he food you bought just didn't last and you didn't have money to get more. 1 05/10/2023 Interpersonal Safety Domain Source: IP Abuse Scr eening Answer Date Recorded Read-Only, Retired: Physical Abuse Denies 04/29/2023 Read-Only, Retired: Verbal Abuse Denies 04/29/2023 Read-Only, Retired: Emotional abuse Denies 04/29/2023 Read-Only, Retired: Financial Abuse Denies 04/29/2023 Read-Only, Retired: Sexual abuse Denies 04/29/2023 Comments No Sex and Gender Information Value Date Recorded Sex Assigned at Not on file Legal Sex Female 1:20 PM EST Gender Identity Not on file Sexual Orientation Not on file Last Filed Vital Signs Vital Sign Reading Time Taken Comments Blood Pressure 120/62 11/13/2024 12:36 PM EDT Pulse 88 11/13/2024 12:36 PM EDT Temperature 37.1 C (98.8 F) 11/13/2024 12:36 PM EDT Respiratory Rate 18 11/13/2024 12:36 PM EDT Oxygen Saturation 98% 11/13/2024 12:36 PM EDT Inhaled Oxygen Concentration - - Weight 59 kg (130 lb) 11/13/2024 12:36 PM EDT Height 162.6 cm (5' 4 ) 11/13/2024 12:36 PM EDT Body Mass Index 22.31 11/13/2024 12:36 PM EDT Plan of Treatment Health Maintenance Due Date Last Done Comments Varicella vaccine (2 of 2 - 2-dose childhood series) 04/06/2000 01/13/2000 HIV screen 2010 Hepatitis C screen 2013 Pap smear 10/23/2022 10/24/2019 COVID-19 Vaccine ( season) 2024 Depression Screen 04/29/2024 04/29/2023 Flu vaccine (Season Ended) 2025 05/29/2020, DTaP/Tdap/Td vaccine (9 - Td or Tdap) 05/29/2030 05/29/2020, 03/08/2020, 04/22/2016, Additional history exists Hepatitis B vaccine Completed 03/07/1996, 1995, 1995 Hib vaccine Completed 10/31/1996, 02/19, 1995, Additional history exists Polio vaccine Completed 01/13/2000, 02/19, 1995, Additional history exists HPV vaccine Aged Out No longer eligi ble based on patient's age to complete this topic Hepatitis A vaccine Aged Out No longe r eligible based on patient's age to complete this topic Meningococcal (ACWY) vaccine Aged Out No longer eligible based on patient's age to complete this topic Meningococcal B vaccine Aged Out No l onger eligible based on patient's age to complete this topic Pneumococcal 0-49 years Vaccine Aged Out No longer eligible based on patient's age to complete this topic Procedures Procedure Name Priority Date/Time Associated Diagnosis Comments XR CHEST (2 VW) STAT 11/13/2024 12:57 PM EDT HM PAP SMEAR Routine 10/24/2019 from Last 3 Months or Most Recently Relevant to Health Maintenance Results * XR CHEST (2 VW) (11/13/2024 12:57 PM EDT) Anatomical Region Laterality Modality Chest Computed Radiogr aphy Chest 11/13/2024 12:5 7 PM EDT Impressions 11/13/2024 1:22 PM EDT No acute heart or lung disease identified. Narrative 11/13/2024 1:22 PM EDT EXAM: XR CHEST (2 VW) HISTORY: . cough, chills, scattered courses/wheeze, no hx asthma . COMPARISON: None. TECHNIQUE: Frontal and lateral chest FINDINGS: Heart and vascularity are unremarkable. Lungs are free of focal infiltrates. No bony abnormality is appreciated. Procedure Note Pillo Jean MD - 11/13/2024 EXAM: XR CHEST (2 VW) HISTORY: . cough, chills, scattered courses/wheeze, no hx asthma . COMPARISON: None. TECHNIQUE: Frontal and lateral chest FINDINGS: Heart and vascularity are unremarkable. Lungs are free of focal infiltrates. No bony abnormality is appreciated. IMPRESSION: No acute heart or lung disease identified. Surendra Louise MD IMG DIAGNOSTIC IMAGING OR DERABLES Final Result * PAP SMEAR (10/24/2019) Historical Provider HEALTH MAINTENANCE Final Result from Last 3 Months or Most Recently Relevant to Health Maintenance [facility] Advance Directives * Full Code (Latest Code Status on File) Date Activated Date Inactivated Comments 04/22/2016 9:51 PM 04/23/2016 1:04 PM Care Teams Dining Room Busser Relationship Specialty Start Date End Date Giuliana Drummond DO [address] [place] [address] PCP - General 03/22/16
--- OUTSIDE RECORDS SUMMARY | 2024-12-13 15:16 | XMS_ITS | Encounter Summary ---
Author Organization [facility] Address [address] [place] [address] Care Team Providers Care Aerial Hurricane Hunter Name Role Phone Giuliana Drummond DO Primary Care Provider [phone] Ellis Mijares DO Unavailable Encounter Details Date Type Department Care Team (Late st Contact Info) Description 11/20/2024 Abstract [facility] OB [address] [place] [address] [place] [address] Ellis Mijares DO [address] [place] [address] Dr [place], [facility] Social History Tobacco Use Types Packs/Day Years [...] 01/23/2025 1:30 PM EDT Office Visit [facility] OB [address] [place], [place] [address] [address] Nazia Reid PA [address] [place] [address] [place] [address] 05/15/2025 2:00 PM EST Procedure Visit [facility] OB [address] [place], [place] [address] [address] Ellis Mijares DO [address] [place], [place] [id number] documented as of this encounter Visit Diagnoses Not on filedocumented in this encounter Care Teams Aerial Hurricane Hunter Relationship Specialty Start Date End Date Giuliana Drummond DO [address] [place] [phone] PCP - General Internal Medicine 10/14/23 Ellis Mijares DO [address] [place] [address] PCP - [facility] 09/20/23 documented as of this encounter
--- OUTSIDE RECORDS SUMMARY | 2024-12-13 15:16 | XMS_ITS | Clinical Summary ---
Author Organization [facility] Address [address] [facility] [place] [address] Phone Care Team Providers Care Baby Attendant Name Role Phone Giuliana Drummond DO Primary Care Provider + Social History Tobacco Use Types Packs/Day Years Used Date Smoking Tobacco: Never Assessed Comments Unknown Sex and Gender Information Value Date Recorded Sex Assigned at Not on file Legal Sex Female 5:52 PM EST Gender Identity Not on file Sexual Orientation Not on file Plan of Treatment Not on file Care Teams Baby Attendant Relationship Specialty Start Date End Date Giuliana Drummond DO [address] [place] [address] PCP - General 08/05/20
--- OUTSIDE RECORDS SUMMARY | 2024-12-13 15:16 | XMS_ITS | Encounter Summary ---
Author Organization [facility] Address [address] [place] [address] Care Team Providers Care Photonics Technician Name Role Phone Giuliana Drummond DO Primary Care Provider [phone] Ellis Mijares DO Unavailable Encounter Details Date Type Department Care Team (Late st Contact Info) Description 12/13/2024 Bamboo flowsheet [facility] [address] [place] [address] Ellis Mijares DO [address] [place] [address] Dr Tracey Vu, [facility] Social History Tobacco Use Types Packs/Day [...] 01/23/2025 1:30 PM EDT Office Visit [facility] OB [address] [place] [address] [place] [address] Nazia Reid PA [address] [place] [address] Dr [place], [facility] 05/15/2025 2:00 PM EST Procedure Visit [facility] OB [address] [place] [address] [place] [address] Ellis Mijares DO [address] [place] [address] documented as of this encounter Visit Diagnoses Not on filedocumented in this encounter Care Teams Photonics Technician Relationship Specialty Start Date End Date Giuliana Drummond DO [address] [place] [phone] PCP - General Internal Medicine 10/14/23 Ellis Mijares DO [address] [place] [address] PCP - [facility] 09/20/23 documented as of this encounter
--- OUTSIDE RECORDS SUMMARY | 2024-12-13 15:16 | XMS_ITS | Clinical Summary ---
Author Organization [facility] Address [address] [place] [address] Care Team Providers Care Window And Door Installer Name Role Phone Giuliana Drummond DO Primary Care Provider [phone] Ellis Mijares DO Unavailable Allergies No known active allergies Medications No known medications Encounters Date Type Department Care Team Description 12/13/2024 2:10 PM EDT Consult [facility] [address] [place] [address] Ellis Mijares DO Pre-op examination; Menorrhagia with regular cycle; Abnormal uterine bleeding (AUB); Pelvic pain 12/13/2024 Bamboo flowsheet [facility] [address] [place] [address] Ellis Mijares, DO 11/20/2024 Abstract [facility] [address] [place] [address] Ellis Mijares, 11/09/2024 Telephone [facility] [address] [place] [address] Ellis Mijares, DO 11/08/2024 1:30 PM EDT Procedure Visit [facility] [place] [address] Ellis Mijares DO ASCUS with positive high risk HPV cervical 11/08/2024 External Result Encounter [facility] External Department Unsolicited Ellis Mijares, DO 11/08/2024 Travel 11/08/2024 Orders Only [facility] [address] [place] [address] Radha Hayes MA 10/31/2024 1:30 PM EDT Procedure Visit [facility] [address] [place] [address] Ellis Mijares DO Pre-op evaluation; Menorrhagia with regular cycle; Abnormal uterine bleeding (AUB); Pelvic pain 10/31/2024 Abstract [facility] [address] [place] [address] Ellis Mijares, 10/31/2024 External Result Encounter [facility] External Department Unsolicited Ellis Mijares, 10/31/2024 Travel 10/24/2024 Orders Only [facility] [address] [place] [address] Lindsey Mclain LPN 10/17/2024 9:00 AM EDT Office Visit [facility] [address] [place] [address] Ellis Mijares DO Well woman exam with routine gynecological exam; Menorrhagia with regular cycle 10/17/2024 Clinisync Result Encounter [facility] External Department Unsolicited Ellis Mijares, 10/17/2024 Bamboo flowsheet [facility] [address] [place] [address] Ellis Mijares DO from Last 3 Months Family History Medical History Relation Name Comments Diabetes Maternal Grandfather Jose Manuel Bradford Heart failure Maternal Grandfather Jose Manuel Bradford Relation Name Status Comments Maternal Grandfather Jose Manuel rBadford Alive Social History Tobacco Use Types Packs/Day Years Used Date Smoking Tobacco: Never Assessed Comments No Sex and Gender Information Value Date Recorded Sex Assigned at Female 10/13/2023 11:34 AM EDT Legal Sex Female 11:19 PM EDT Gender Identity Female 10/13/2023 11:34 AM EDT Sexual Orientation Not on file Last Filed Vital Signs Vital Sign Reading Time Taken Comments Blood Pressure 112/62 12/13/2024 2:39 PM EDT Pulse - - Temperature - - Respiratory Rate - - Oxygen Saturation - - Inhaled Oxygen Concentration - - Weight 57.2 kg (126 lb) 12/13/2024 2:39 PM EDT Height 162.6 cm (5' 4 ) 11/08/2024 2:07 PM EDT Body Mass Index 21.63 11/08/2024 2:07 PM EDT Plan of Treatment Upcoming Encounters Date Type Department Care Team (Late st Contact Info) Description 01/23/2025 1:30 PM EDT Office Visit [facility] OB [address] [facility] [address] Nazia Reid PA [address] [place], [place] [address] 05/15/2025 2:00 PM EST Procedure Visit [facility] [address] [facility] [place] [address] Ellis Mijares DO [address] [facility] [address] [place], [place] [id number] Health Maintenance Due Date Last Done Comments Influenza Vaccine (Season Ended) 2025 05/29/20, 04/14/2017 Procedures Procedure Name Priority Date/Time Associated Diagnosis Comments COLPOSCOPY Routine 11/08/2024 2:24 PM EDT ASCUS with positive high risk HPV cervical POCT , URINE Routine 11/08/2024 2:13 PM EDT ASCUS with positive high risk HPV cervical POCT URINALYSIS DIPSTICK Routine 11/08/2024 2:12 PM EDT ASCUS with positive high risk HPV cervical PATHOLOGY REQUEST FOR LAB [facility] Routine 11/08/2024 12:00 AM EDT POCT , URINE Routine 10/31/2024 1:38 PM EDT Pre-op evaluation POCT URINALYSIS DIPSTICK Routine 10/31/2024 1:38 PM EDT Pre-op evaluation ENDOMETRIAL BIOPSY Routine 10/31/2024 12 :00 AM EDT PATHOLOGY REQUEST FOR LAB [facility] Routine 10/31/2024 12:00 AM EDT IGP,APTIMA HPV,AGE GDLN Routine 10/17/2024 8:55 AM EDT PAP SMEAR Routine 10/17/2024 12:00 AM EDT from Last 3 Months Results * Colposcopy (11/08/2024 2:24 PM EDT) Kimberly Rosario LPN - 11/08/2024 2:24 PM EDT Kimberly Resendiz LPN 11/08/2024 3:07 PM Colposcopy Date/Time: 11/08/2024 2:24 PM Performed by: Ellis Mijares DO Authorized by: Ellis Mijares DO Consent: Patient questions answered: yes Risks and benefits of the procedure and its alternatives discussed: yes Procedural risks discussed: Bleeding Consent obtained: Written Consent given by: Patient Indication: Other indication(s): clinical abnormality Pre-procedure: Prep solution(s): acetic acid Procedure: Colposcopy with: endocervical curettage Cervix visibility: fully visualized Post-procedure: Patient tolerance of procedure: Patient tolerated the procedure well with no immediate complications Instructions and paperwork completed: yes Comments: Colposcopy: Patient is doing well and has no complaints. Pap results have been reviewed with the patient in great detail and patient voiced understanding. Patient presents today for a Colposcopy with ECC. Patient was placed in dorsal lithotomy position with feet in stirrups, a sterile speculum was placed into the vagina and the cervix was visualized. Cervix was cleansed with vinegar. Postprocedural instructions given. All if patients questions answered and she expressed understanding. Advised to call in interim with questions or concerns. Follow Up: Patient is to return in 6 months for Repeat Pap. Ellis Mijares DO IN CLINIC/BEDSIDE ORDERABLES Fin al Result * POCT , urine manually resulted (11/08/2024 2:13 PM EDT) Only the most recent of2 resultswithin the time period is included. Preg Test, Ur Negative Negative Urine 11/08/2024 2:1 3 PM EDT us Ellis Maryana DO POINT OF CARE TEST ENTER/EDIT OR DERABLES Final Result * POCT urinalysis dipstick manually resulted (11/08/2024 2:12 PM EDT) Only the most recent of2 resultswithin the time period is included. Color, UA Yellow Clarity, UA Clear Glucose, UA Negative Negative - 2000(110) ++++ mg/dL Bilirubin, UA Negative Negative - 4(70) +++ mg/dL Ketones, UA Negative Negative - 160(16) ++++ mg/dL Spec Grav, UA 1.025 1 - 1.03 Blood, UA Negative Negative - 50 Terell/mcL pH, UA 7.0 5 - 9 Protein, UA Negative Negative - 2000(20) ++++ mg/dL Urobilinogen, UA 0.2 0.2 - 12 mg/dL Leukocytes, UA Trace Negative - 500+++ Kaylyn/mcL Nitrite, UA Negative Negative - Positive Urine 11/08/2024 2:12 PM EDT us Ellis Maryana DO POINT OF CARE TEST ENTER/EDIT OR DERABLES Final Result * PATHOLOGY REQUEST FOR LAB [facility] (11/08/2024 12:00 AM EDT) Only the most recent of2 resultswithin the time period is included. PATHOLOGY REQUEST FOR LAB [facility] 11/15/2024 9:44 AM EDT [facility] Comment:See report. Scanned copy available in EMR. Other Topography unknown / Unknown 11/08/2024 11/09/2024 1:05 PM EDT Narrative [facility] - 11/15/2024 9:44 AM EDT ENDO CERVIX us Ellis Maryana DO LAB BLOOD ORDERABLES Final Resul t [facility] [address] [place] [address], [facility] [address] [facility] [place] [address] * Endometrial biopsy (10/31/2024 12:00 AM EDT) us Ellis Mijares DO SURGICAL HISTORY PROCEDURES Jeanie olguin Result EXTERNAL LAB * (ABNORMAL) IGP,APTIMA HPV,AGE GDLN (10/17/2024 8:55 AM EDT) AGE GDLN ACOG TESTING Note . [facility] Comment: TESTS RESULT FLAG UNITS REF RANGE LAB Clinician Provided Cytology Information Source.............Cervix;Endocervix No. of containers..01 ThinPrep Vial Age Algo ACOG Olinda... 01 FLAG LEGEND: L-Low Normal,H-High Normal,LL-Alert Low,HH-Alert High <-Panic Low,>-Panic High,A-Abnormal,AA-Critical Abnormal Performed at: 01 =G [facility] [address] [address] Leisa Rivera MD, IGP, RFX APTIMA HPV ASCU Note(A) . [facility] Comment: TESTS RESULT FLAG UNITS REF RANGE LAB DIAGNOSIS: [A] 02 EPITHELIAL [...] are present. Performed by: 02 Janelle Hooper, Tractor Sweeper Operator (ASCP) Electronically si... 02 Fanny Phan MD, [...] <-Panic Low,>-Panic High,A-Abnormal,AA-Critical Abnormal Performed at: [address] [place] [address] Leisa Rivera MD, HPV APTIMA Positive( A) Negative [facility] Comment: This nucleic acid amplification test detects fourteen high- risk HPV types (16,18,31,33,35,39,45,51,52,56,58,59,66,68) without differentiation. Performed at: = - [facility] [id number] Dry Transfer Worker: Leisa Rivera MD, Phone: [phone] Performed at: - [facility] [id number] Dry Transfer Worker: Leisa Rivera MD, Phone: [phone] 10/17/2024 8:55 AM EDT 10/17/2024 12:47 PM EDT Narrative [facility] - 10/24/2024 3:13 AM EDT BRUSH-SPATULA CERVIX ENDOCERVIX Ellis Mijares DO LAB BLOOD ORDERABLES Final [facility]ul t [facility] * (ABNORMAL) Pap Smear (10/17/2024 12:00 AM EDT) Swab Cervical swab / Unknown Maryana Nurse [facility] LAB CYTOLOGY ORDERABLES Final Result EXTERNAL LAB from Last 3 Months Insurance [employer] Care Teams Window And Door Installer Relationship Specialty Start Date End Date Giuliana Drummond DO [address] [place] [phone] PCP - General Internal Medicine 10/14/23 Ellis Mijares DO [address] [place] [address] [place] [address] PCP - [facility] 09/20/23
--- OUTSIDE RECORDS SUMMARY | 2024-12-13 15:16 | XMS_ITS | Encounter Summary ---
Author Organization [facility] Address [address] [place] [address] Care Team Providers Care Grinder Set Up Operator Internal Name Role Phone Giuliana Drummond DO Primary Care Provider [phone] Ellis Mijares DO Unavailable Encounter Details Date Type Department Care Team (Late st Contact Info) Description 11/08/[address] [facility] [address] [facility] [place] [address] [address] [place] [address] Social History Tobacco Use Types Packs/Day Years [...] 01/23/2025 1:30 PM EDT Office Visit [facility] [address] [facility] [place] [address] Nazia Reid PA [address] [place], [place] [address] [place], [facility] 05/15/2025 2:00 PM EST Procedure Visit [facility] [address] [facility] [place] [address] Ellis Mijares DO [address] [place] [address] documented as of this encounter Procedures Procedure Name Priority Date/Time Associated Diagnosis Comments ENDOMETRIAL BIOPSY Routine 10/31/2024 12:00 AM EDT documented in this encounter Results * Endometrial biopsy (10/31/2024 12:00 AM EDT) Ellis Mijares DO SURGICAL HISTORY PROCEDURES Jeanie l Result EXTERNAL LAB documented in this encounter Visit Diagnoses Not on filedocumented in this encounter Care Teams Grinder Set Up Operator Internal Relationship Specialty Start Date End Date Giuliana Drummond DO [address] [place] [address] PCP - General Internal Medicine 10/14/23 Ellis Mijares DO [address] [place] [address] PCP - [facility] 09/20/23 documented as of this encounter
--- OUTSIDE RECORDS SUMMARY | 2024-12-13 15:16 | XMS_ITS | Clinical Summary ---
Author Organization [facility] Address [address] [place] [address] Care Team Providers Care Custom Harvester Name Role Phone Unavailable Primary Care Provider Unavailabl e Social History Tobacco Use Types Packs/Day Years Used Date Smoking Tobacco: Never Assessed Comments Unknown Sex and Gender Information Value Date Recorded Sex Assigned at Not on file Legal Sex Female 12:38 PM EDT Gender Identity Not on file Sexual Orientation Not on file Plan of Treatment Not on file Insurance BCBS OUT OF STATE [facility]
[2024-12-13 15:37] LABS: Eosinophils Absolute Auto 0.1 10^3/uL (0.0-0.7); Eosinophils Percent Auto 2.8 % (0.9-7.0); Lymphocytes Absolute Auto 1.5 10^3/uL (1.2-3.8); Lymphocytes Percent Auto 38.8 % (20.5-60.0); Mean Corpuscular Hemoglobin 16.4 pg (26.7-34.0); Monocytes Absolute Auto 0.4 10^3/uL (0.3-0.8); Monocytes Percent Auto 8.9 % (1.7-12.0); Neutrophils Absolute Auto 1.9 10^3/uL (1.4-6.5); Neutrophils Percent Auto 48.5 % (43.0-75.0); Platelet Count 162 10^3/uL (150-450); Red Cell Distribution Width 18.5 % (11.0-15.0); White Blood Count 3.9 10^3/uL (4.0-11.0)
[2024-12-13 15:44] LABS: Estimated Average Glucose 100 mg/dL; Glycohemoglobin A1C 5.1 % (4.5-6.2)
[2024-12-13 15:59] LABS: INR 1.12; Prothrombin Time 11.7 sec (9.0-11.6)
[2024-12-13 16:01] LABS: Hematocrit 23.9 % (36.0-48.0); Hemoglobin 6.4 g/dL (12.0-16.0)
[2024-12-13 16:02] LABS: Mean Corpuscular HGB Conc 26.8 g/dL (29.9-35.2); Mean Corpuscular Volume 61.3 fL (81.0-99.0)
[2024-12-13 16:08] LABS: Free T4 0.83 ng/dL (0.76-1.46); Thyroid Stimulating Hormone 0.756 uIU/mL (0.358-3.740)
[2024-12-13 16:11] LABS: HCG Quantitative <1 mIU/mL
== END 2024-12-13 15:14 | disposition home or self-care (01) ==
PROVIDERS: PCP Student in an Organized Health Care Education/Training Program; Visit Provider Obstetrics & Gynecology
DX: N92.0 Excessive and frequent menstruation with regular cycle (principal)
CPT/HCPCS: 36415; 83036; 84439; 84443; 84702; 85025; 85610; 85730

== ENCOUNTER 2024-12-15 13:24 | Outpatient (OUT) | payer OTHER, SELFPAY ==
--- OUTSIDE RECORDS SUMMARY | 2024-12-15 13:47 | XMS_ITS | CCD ---
Author Organization 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 Name Role Phone Noahanthony, Aimee Unavailable Unavailable Marcanthony, Aimee Unavailable Unavailable DOCTOR, OUT OF TOWN Unavailable Unavailable Marcanthony, Aimee Unavailable Unavailable DOCTOR, OUT OF TOWN Unavailable Unavailable Marcanthony, Aimee Unavailable Unavailable Marcanthony, Aimee Unavailable Unavailable Marcanthony, Aimee Unavailable Unavailable Latha, Edward E Unavailable Unavailable Latha, Edward E Unavailable Unavailable JOSEFINA, NAVITA Unavailable Unavailable JOSEFINA, NAVITA Unavailable Unavailable Giuliana Mckee DO Primary Care Provider [phone] [facility] Primary Care Unavailable MARYANA ., DR PA Consulting Unavailable MARYANA ., DR PA Admitting Unavailable MARYANA ., DR PA Attending Unavailable SHER, DR BOSCH Primary Care Unavailable MARYANA ., DR PA Admitting Unavailable MARYANA ., DR PA Attending Unavailable MARYANA ., DR PA Consulting Unavailable ZIEBER, DR CALLIE Bhagat Consulting Unavailable Giuliana Mckee DO Primary Care Provider [phone] Ellis Mijares DO Unavailable Giuliana Mckee DO Primary Care Provider ELLIS MIJARES Attending Unavailable ELLIS MIJARES Attending Unavailable ELLIS MIJARES Attending Unavailable ELLIS MIJARES Attending Unavailable GIULIANA MCKEE Primary Care Unavailable DEYSI LOUISE Attending Unavailable MAURICIO FUNES Attending Unavailable GIULIANA MCKEE Primary Care Unavailable Allergies Allergy Classification Reported Allergen(s) Allergy Type Date of Onset Reaction(s) Facility (2 sources) No Known Allergies Drug allergy (disorder) 04-12-2017 [facility] Repository Medications Current Medications Medication Drug Class(es) Dates Sig (Normalized) Sig (Original) acetaminophen 325 mg oral tablet (1 source) Start: 04-23-2016 take 2 tablets by mouth every four hours as needed for pain acetaminophen (TYLENOL) 325 MG tablet Take 2 tablets by mouth every 4 hours as needed for Pain or Fever 120 tablet 3 04/23/2016 Active dextromethorphan hydrobromide 15 mg / guaiFENesin 400 mg / pseudoephedrine hydrochloride 60 mg oral tablet (2 sources) alpha-Adrenergic Agonist, Uncompetitive R-jnmonr-Q-asparta te Receptor Antagonist, Sigma-1 Agonist Start: 11-13-2024 take 1 tablet by mouth every four to six hours as needed, then take 4 tablets by mouth every twenty-four hours as needed Pseudoephedrine-DM -GG 60-15-400 MG TABS Take 1 tablet by mouth every 4-6 hours as needed (not to exceed 4 tablets in 24 hours) 30 tablet 11/13/2024 Active loratadine 10 mg oral tablet (2 sources) Start: 11-13-2024 End: 12-13-2024 take 1 tablet by mouth once daily loratadine (CLARITIN) 10 MG tablet Take 1 tablet by mouth daily 30 tablet 11/13/2024 12/13/2024 Active megestrol acetate 20 mg oral tablet (1 source) Progestin Start: 12-13-2024 End: 01-12-2025 take 1 tablet by mouth twice daily megestrol (MEGACE) 20 MG tablet Take 1 tablet by mouth 2 times daily 12/13/2024 01/12/2025 Active sertraline 50 mg oral tablet (1 source) Serotonin Reuptake Inhibitor Start: 10-11-2019 take 1 tablet by mouth once daily sertraline (ZOLOFT) 50 MG tablet Take 1 tablet by mouth daily 30 tablet 5 10/11/2019 Active Problems Active Problems Problem Classification Problem Date Documented Date Episodic/Chronic Abdominal pain (1 source) Pain in pelvis; Translations: [Pelvic and perineal pain] 12-13-2024 Episodic Anxiety disorders (3 sources) Anxiety; Translations: [Anxiety disorder, unspecified] Onset: 10-11-2019 10-11-2019 Chronic Cancer of cervix (1 source) Atypical squamous cells of undetermined significance on cervical Papanicolaou smear; Translations: [Atypical squamous cells of undetermined significance on cytologic smear of cervix (ASC-US)] 11-08-2024 Episodic Deficiency and other anemia (1 source) Anemia; Translations: [Anemia, unspecified] 12-13-2024 Episodic Deficiency and other anemia (1 source) Anemia, unspecified; Translations: [Anemia, unspecified] Onset: 12-13-2024 Episodic Esophageal disorders (3 sources) Gastroesophageal reflux disease; Translations: [Gastro-esophageal reflux disease without esophagitis] Onset: 03-06-2013 03-06-2013 Chronic Immunizations and screening for infectious disease (1 source) Suspected disease caused by 2019-nCoV; Translations: [Suspected 2019-nCoV infection] Episodic Menstrual disorders (10 sources) Excessive and frequent menstruation with irregular cycle; Translations: [Menorrhagia] Onset: 07-27-2022 Chronic Other female genital disorders (1 source) Abnormal uterine bleeding; Translations: [Abnormal uterine and vaginal bleeding, unspecified] 12-13-2024 Chronic Other female genital disorders (1 source) H/O: inter-menstrual bleeding; Translations: [Personal history of other diseases of the female genital tract] 12-13-2024 Episodic Other female genital disorders (1 source) Personal history of other diseases of the female genital tract; Translations: [Personal history of other diseases of the female genital tract] Onset: 12-13-2024 Episodic Unclassified (5 sources) Encounter for screening for malignant neoplasm of cervix; Translations: [Z12.4 - Encounter for screening for malignant neoplasm of cervix] Onset: 06-01-2017 Episodic Unclassified (2 sources) 37 weeks gestation of ; Translations: [35 weeks gestation of ] Onset: 04-16-2017 Viral infection (2 sources) Viral syndrome; Translations: [Viral infection, unspecified] Onset: 11-13-2024 11-13-2024 Episodic Past or Other Problems Problem Classification Problem Date Documented Da te Episodic/Chronic Coma; stupor; and brain damage (3 sources) Loss of consciousness; Translations: [Unspecified coma] Onset: 04-22-2016 Resolved: 06-01-2016 06-01-2016 Episodic Headache; including migraine (3 sources) Headache; Translations: [Headache] Onset: 12-07-2013 Resolved: 06-01-2016 06-01-2016 Episodic Normal and/or delivery (5 sources) Encounter for supervision of normal first , third trimester; Translations: [Single live ] Onset: 02-01-2017 Episodic OB-related trauma to perineum and vulva (1 source) First degree perineal laceration during delivery; Translations: [O70.0 - First degree perineal laceration during delivery] Onset: 08-06-2017 Episodic Other bone disease and musculoskeletal deformities (3 sources) Costal chondritis; Translations: [Chondrocostal junction syndrome [Tietze]] Onset: 03-06-2013 Resolved: 10-11-2019 10-11-2019 Episodic Other injuries and conditions due to external causes (3 sources) Injury of head; Translations: [Unspecified injury of [...] Results Test Name Value Interpretation Reference Range [facility] 12-13-2024 Anion gap [Moles/Vol] 16 mmol/L 9 - 17 mmol/L [facility] Calcium [Mass/Vol] 9.1 mg/dL 8.6 - 10. 4 mg/dL [facility] Chloride [Moles/Vol] 103 mmol/L 98 - 107 mmol/L [facility] CO2 [Moles/Vol] 20 mmol/L 20 - 31 mmol/L [facility] Creatinine [Mass/Vol] 0.7 mg/dL 0.5 - 0.9 mg/dL [facility] EstJoshua Rate - PINF [facility] Comment on above: These results are not intended for use in patients <18 years of age. eGFR results are calculated without a race factor using the 2020 CKD-EPI equation. Careful clinical correlation is recommended, particularly when comparing to results calculated using previous equations. The CKD-EPI equation is less accurate in patients with extremes of muscle mass, extra-renal metabolism of creatine, excessive creatine ingestion, or following therapy that affects renal tubular secretion. Glucose [Mass/Vol] 100 mg/dL High 70 - 99 mg/dL [facility] Interpretation and review of laboratory results Abnormal [facility] Potassium [Moles/Vol] 3.7 mmol/L 3.7 - 5.3 mmol/L [facility] Sodium [Moles/Vol] 139 mmol/L 135 - 144 mmol/L [facility] Urea nitrogen [Mass/Vol] 13 mg/dL 6 - 20 mg/dL [facility] Basic Metabolic Profon 12-13 Anion gap [Moles/Vol] 16 mmol/L Normal 9-17 [facility] Comment on above: Performed By: #### P T, BMP, TSH, CDP #### [facility] [address] [id number] Touch Up Worker: Pillo Alvarado MD Calcium [Mass/Vol] 9.1 mg/dL Normal 8.6-10.4 [facility] Comment on above: Performed By: #### P T, BMP, TSH, CDP #### [facility] [address] [place] [address] Touch Up Worker: Pillo Alvarado MD Chloride [Moles/Vol] 103 mmol/L Normal 98-107 [facility] Comment on above: Performed By: #### P T, BMP, TSH, CDP #### [facility] [address] [place] [address] Touch Up Worker: Pillo Alvarado MD CO2 [Moles/Vol] 20 mmol/L Normal 20-31 [facility] Comment on above: Performed By: #### P T, BMP, TSH, CDP #### [facility] [address] [place] [address] Touch Up Worker: Pillo Alvarado MD Creatinine [Mass/Vol] 0.7 mg/dL Normal 0.5-0.9 [facility] Comment on above: Performed By: #### P T, BMP, TSH, CDP #### [facility] [address], [place] [id number] Touch Up Worker: Pillo Alvarado MD GFR/1.73 sq M.predicted among non-blacks MDRD (S/P/Bld) [Vol rate/Area] mL/min/{1.73_m2} Normal >60 [facility] Comment on above: Result Comment: These results are not intended for use in patients <18 years of age. eGFR results are calculated without a race factor using the 2020 CKD-EPI equation. Careful clinical correlation is recommended, particularly when comparing to results calculated using previous equations. The CKD-EPI equation is less accurate in patients with extremes of muscle mass, extra-renal metabolism of creatine, excessive creatine ingestion, or following therapy that affects renal tubular secretion. Performed By: #### P T, BMP, TSH, CDP #### [facility] [address], [place] [id number] Touch Up Worker: Pillo Alvarado MD Glucose [Mass/Vol] 100 mg/dL High 70-99 [facility] Comment on above: Performed By: #### P T, BMP, TSH, CDP #### [facility] [address], [place] [id number] Touch Up Worker: Pillo Alvarado MD Potassium [Moles/Vol] 3.7 mmol/L Normal 3.7-5.3 [facility] Comment on above: Performed By: #### P T, BMP, TSH, CDP #### [facility] [address] [place], [place] [id number] Touch Up Worker: Pillo Alvarado MD Sodium [Moles/Vol] 139 mmol/L Normal 135-144 [facility] Comment on above: Performed By: #### P T, BMP, TSH, CDP #### [facility] [address] [place], [place] [id number] Touch Up Worker: Pillo Alvarado MD Urea nitrogen [Mass/Vol] 13 mg/dL Normal 6-20 [facility] Comment on above: Performed By: #### P T, BMP, TSH, CDP #### [facility] [address] [place] [address] Touch Up Worker: Pillo Alvarado MD CBC with Auto Differentialon 12-13-2024 Basophils (Bld) [#/Vol] 0.03 10*3/uL [facility] Basophils/100 WBC (Bld) 1 % 0 - 2 % [facility] Eosinophils (Bld) [#/Vol] 0.13 10*3/uL [facility] Eosinophils/100 WBC (Bld) 3 % 0 - 5 % [facility] Erythrocyte distribution width (RBC) [Ratio] 18.2 % High 12.1 - 15.2 % [facility] Hematocrit (Bld) [Volume fraction] 24.5 % Low 36.0 - 46.0 % [facility] Hemoglobin (Bld) [Mass/Vol] 6.7 g/dL Critically low 12.0 - 16.0 g/dL [facility] Immature granulocytes (Bld) [#/Vol] 0 10*3/uL [facility] Immature granulocytes/100 WBC (Bld) 0 % 0 - 5 % [facility] Interpretation and review of laboratory results Abnormal [facility] Lymphocytes/100 WBC (Bld) 33 % 15 - 40 % [facility] Lymphocytes/100 WBC (Bld) 1.68 % [facility] MCH (RBC) [Entitic mass] 16.3 pg Low 26.0 - 34.0 pg [facility] MCHC (RBC) [Mass/Vol] 27.3 g/dL Low 31.0 - 37.0 g/dL [facility] MCV (RBC) [Entitic vol] 59.5 fL Low 80.0 - 100.0 fL [facility] Monocytes/100 WBC (Bld) 6 % 4 - 8 % [facility] Monocytes/100 WBC (Bld) 0.32 % [facility] Morphology Herminio (Bld) [Interp] SLIGHT ANISOCYTOSIS [facility] Morphology Herminio (Bld) [Interp] MODERATE MICROCYTOSIS [facility] Morphology Herminio (Bld) [Interp] MODERATE HYPOCHROMIA [facility] Morphology Herminio (Bld) [Interp] Decreased Platelets [facility] Neutrophils/100 WBC (Bld) 58 % 47 - 75 % [facility] Platelet mean volume (Bld) [Entitic vol] Abnormal 6.0 - 12.0 fL [facility] Platelets (Bld) [#/Vol] 160 10*3/uL [facility] RBC (Bld) [#/Vol] 4.12 10*6/uL 4.00 - 5.2 0 m/uL [facility] Segmented neutrophils/100 WBC (Bld) 2.98 % [facility] WBC other (Bld) [#/Vol] 5.1 [facility] CBC with Diffon 12-13-2024 Morphology Herminio (Bld) [Interp] SLIGHT Normal [facility] Comment on above: Result Comment: ANIS OCYTOSIS MODERATE MICROCYTOSIS MODERATE HYPOCHROMIA Decreased Platelets Performed By: #### P T, BMP, TSH, CDP #### [facility] [address] [place] [address] Touch Up Worker: Pillo Alvarado MD Abs. Basophil 0.03 k/uL Normal 0.00-0.20 [facility] Comment on above: Performed By: #### P T, BMP, TSH, CDP #### [facility] [address] [place] [address] Touch Up Worker: Pillo Alvarado MD Abs.Imm.Granulocyte 0.00 k/uL Normal 0.00-0.30 [facility] Comment on above: Performed By: #### P T, BMP, TSH, CDP #### [facility] [address] [place] [address] Touch Up Worker: Pillo Alvarado MD Abs.Neutrophil (Seg) 2.98 k/uL Normal 2.5-7.0 [facility] Comment on above: Performed By: #### P T, BMP, TSH, CDP #### [facility] [address] [id number] Touch Up Worker: Pillo Alvarado MD Basophils/100 WBC (Bld) 1 % Normal 0-2 [facility] Comment on above: Performed By: #### P T, BMP, TSH, CDP #### [facility] [address] [id number] Touch Up Worker: Pillo Alvarado MD Eosinophils (Bld) [#/Vol] 0.13 10*3/uL Normal 0.00-0.40 [facility] Comment on above: Performed By: #### P T, BMP, TSH, CDP #### [facility] [address] [place] [address] Touch Up Worker: Pillo Alvarado MD Eosinophils/100 WBC (Bld) 3 % Normal 0-5 [facility] Comment on above: Performed By: #### P T, BMP, TSH, CDP #### [facility] [address] [place] [address] Touch Up Worker: Pillo Alvarado MD Erythrocyte distribution width (RBC) [Ratio] 18.2 % High 12.1-15.2 [facility] Comment on above: Performed By: #### P T, BMP, TSH, CDP #### [facility] [address] [place] [address] Touch Up Worker: Pillo Alvarado MD Hematocrit (Bld) [Volume fraction] 24.5 % Low 36.0-46.0 [facility] Comment on above: Performed By: #### P T, BMP, TSH, CDP #### [facility] [address] [place] [address] Touch Up Worker: Pillo Alvarado MD Hemoglobin (Bld) [Mass/Vol] 6.7 g/dL Critically low 12.0-16.0 [facility] Comment on above: Performed By: #### P T, BMP, TSH, CDP #### [facility] [address] [place] [address] Touch Up Worker: Pillo Alvarado MD Immature granulocytes/100 WBC (Bld) 0 % Normal 0-5 [facility] Comment on above: Performed By: #### P T, BMP, TSH, CDP #### [facility] [address] [id number] Touch Up Worker: Pillo Alvarado MD Lymphocytes (Bld) [#/Vol] 1.68 10*3/uL Normal 1.00-4.80 [facility] Comment on above: Performed By: #### P T, BMP, TSH, CDP #### [facility] [address] [place] [address] Touch Up Worker: Pillo Alvarado MD Lymphocytes/100 WBC (Bld) 33 % Normal 15-40 [facility] Comment on above: Performed By: #### P T, BMP, TSH, CDP #### [facility] [address] [place] [address] Touch Up Worker: Pillo Alvarado MD MCH (RBC) [Entitic mass] 16.3 pg Low 26.0-34.0 [facility] Comment on above: Performed By: #### P T, BMP, TSH, CDP #### [facility] [address] [id number] Touch Up Worker: Pillo Alvarado MD MCHC (RBC) [Mass/Vol] 27.3 g/dL Low 31.0-37.0 [facility] Comment on above: Performed By: #### P T, BMP, TSH, CDP #### [facility] [address] [id number] Touch Up Worker: Pillo Alvarado MD MCV (RBC) [Entitic vol] 59.5 fL Low 80.0-100.0 [facility] Comment on above: Performed By: #### P T, BMP, TSH, CDP #### [facility] [address] [place] [address] Touch Up Worker: Pillo Alvarado MD Monocytes (Bld) [#/Vol] 0.32 10*3/uL Normal 0.00-1.00 [facility] Comment on above: Performed By: #### P T, BMP, TSH, CDP #### [facility] [address] [id number] Touch Up Worker: Pillo Alvarado MD Monocytes/100 WBC (Bld) 6 % Normal 4-8 [facility] Comment on above: Performed By: #### P T, BMP, TSH, CDP #### [facility] [address] [place] [address] Touch Up Worker: Pillo Alvarado MD MPV Abnormal Normal 6.0-12.0 [facility] Comment on above: Performed By: #### P T, BMP, TSH, CDP #### [facility] [address] [place] [address] Touch Up Worker: Pillo Alvarado MD Neutrophil (Seg) 58 % Normal 47-75 [facility] Comment on above: Performed By: #### P T, BMP, TSH, CDP #### [facility] [address] [place] [address] Touch Up Worker: Pillo Alvarado MD Platelets (Bld) [#/Vol] 160 10*3/uL Normal 140-450 [facility] Comment on above: Performed By: #### P T, BMP, TSH, CDP #### [facility] [address] [place] [address] Touch Up Worker: Pillo Alvarado MD RBC (Bld) [#/Vol] 4.12 10*6/uL Normal 4.00-5.20 [facility] Comment on above: Performed By: #### P T, BMP, TSH, CDP #### [facility] [address] [place] [address] Touch Up Worker: Pillo Alvarado MD WBC (Bld) [#/Vol] 5.1 10*3/uL Normal 3.5-11.0 [facility] Comment on above: Performed By: #### P T, BMP, TSH, CDP #### [facility] [address] [place] [address] Touch Up Worker: Pillo Alvarado MD HCG Qualitative, Serumon HCG ( test) Ql Negative NEGATIVE [facility] Comment on above: Specimens with hCG l evels near the threshold of the test (25 mIU/mL) may give a negative or indeterminate result. In such cases, another test should be performed with a new specimen in 48-72 hours. If early is suspected clinically in this setting, correlation with quantitative serum b-hCG level is suggested. [facility] has confirmed the use of plasma for this test. This has not been cleared or approved by the U.S. Food and Drug Administration. The FDA has determined that such clearance is not necessary. [facility] HCG Screen, Bloodon 12-14-19 25 HCG Screen, Blood Negative Normal [facility] Comment on above: Result Comment: Spec imens with hCG levels near the threshold of the test (25 mIU/mL) may give a negative or indeterminate result. In such cases, another test should be performed with a new specimen in 48-72 hours. If early is suspected clinically in this setting, correlation with quantitative serum b-hCG level is suggested. [facility] has confirmed the use of plasma for this test. This has not been cleared or approved by the U.S. Food and Drug Administration. The FDA has determined that such clearance is not necessary. Performed By: #### H CG #### [facility] [address] [place] [address] Touch Up Worker: Pillo Alvarado MD MLR HEMOGLOBIN A1Con 025 Glucose [Mass/Vol] 100 mg/dL [facility] HbA1c (Bld) [Mass fraction] 5.1 % 4.5 - 6.2 % [facility] Comment on above: ADA RECOMMENDED LIMI T 4.0 - 6.0 ADA THERAPEUTIC TARGET < 7.0 ACTION SUGGESTED > 7.0 [facility] No Panel Informationon 12-13 [facility] PTon 12-13-2024 INR Coag (PPP) [Relative time] 1.1 {INR} Normal [facility] Comment on above: Result Comment: Therapeutic Range: Moderate Anticoagulant Intensity: INR = 2.0-3.0 High Anticoagulant Intensity: INR = 2.5-3.5 Performed By: #### P T, BMP, TSH, CDP #### [facility] [address] [place] [address] Touch Up Worker: Pillo Alvarado MD PT Coag (PPP) [Time] 14.7 s High 11.5-14.2 [facility] Comment on above: Performed By: #### P T, BMP, TSH, CDP #### [facility] [address] [place] [address] Touch Up Worker: Pillo Alvarado MD Protime-INRon 12-13-2024 INR Coag (PPP) [Relative time] 1.1 {INR} [facility] Comment on above: Therapeutic Range: Moderate Anticoagulant Intensity: INR = 2.0-3.0 High Anticoagulant Intensity: INR = 2.5-3.5 Interpretation and review of laboratory results Abnormal [facility] PT Coag (PPP) [Time] 14.7 s High [facility] TSHon 12-13-2024 TSH Qn 1.68 m[IU]/L [facility] Thyroid Stim. Horm.on 2024 Thyroid Stim. Horm. 1.68 uIU/mL Normal 0.27-4.20 [facility] Comment on above: Performed By: #### P T, BMP, TSH, CDP #### [facility] [address] [place] [address] Touch Up Worker: Pillo Alvarado MD Type + Screenon 12-13-2024 Type + Screen Sample Expiration 12/16/2024,2359 Arm Band Number RZB ABO/Rh(D) A POSITIVE Antibody Screen NEGATIVE Unit Number [id number] Blood Component Type Leukocyte Reduced Red Cell Unit Division 00 Status of Unit TRANSFUSED Transfusion Status OK TO TRANSFUSE Crossmatch Result COMPATIBLE Normal [facility] Comment on above: Performed By: #### T YS #### [facility] [address] [place] [address] Touch Up Worker: Pillo Alvarado MD PATHOLOGY REQUEST FOR LAB CO RPon 11-15-2024 PATHOLOGY REQUEST FOR LAB [facility] Comment on above: See report. Scanned copy available in EMR. ENDO [facility] XR CHEST (2 VW)on 11-13-2024 XR CHEST (2 VW) EXAM: XR CHEST (2 VW ) HISTORY: . cough, chills, scattered courses/wheeze, no hx asthma . COMPARISON: None. TECHNIQUE: Frontal and lateral chest FINDINGS: Heart and vascularity are unremarkable. Lungs are free of focal infiltrates. No bony abnormality is appreciated. IMPRESSION: No acute heart or lung disease identified. Interpreted by: Pillo Jean MD Signed by: Pillo Jean MD 11/13/24 Final result Normal [facility] XR Chest 2 Viewson No acute heart or lung disease identified. [facility] RIS CONSOLIDATED EXAM: XR CHEST (2 VW ) HISTORY: . cough, chills, scattered courses/wheeze, no hx asthma . COMPARISON: None. TECHNIQUE: Frontal and lateral chest FINDINGS: Heart and vascularity are unremarkable. Lungs are free of focal infiltrates. No bony abnormality is appreciated. [facility] RIS CONSOLIDATED Pillo Jean MD - 11/13/2024 EXAM: XR CHEST (2 VW) HISTORY: . cough, chills, scattered courses/wheeze, no hx asthma . COMPARISON: None. TECHNIQUE: Frontal and lateral chest FINDINGS: Heart and vascularity are unremarkable. Lungs are free of focal infiltrates. No bony abnormality is appreciated. IMPRESSION: No acute heart or lung disease identified. [facility] Radiology Study observation (narrative) [facility] XR Chest 2 ViewsOrdered By: Pillo Jean on 11-13-2024 [facility] [employer] Work Phone: Colposcopyon 11-08-2024 Kimberly ResendizKASSIE 11/08/2024 3:07 PM Colposcopy Date/Time: 11/08/2024 2:24 [...] return in 6 months for Repeat Pap. [facility] HCG ( test) Ql (U)o n 11-08-2024 Interpretation and review of laboratory results Normal [facility] Preg Test, Ur Negative Negative [facility] Urinalysis macro (dipstick) panel (U)on 11-08-2024 Bilirubin, UA Negative Negative - 4(70) +++ mg/dL [facility] Blood, UA Negative Negative - 50 Terell/mcL [facility] Clarity, UA Clear [facility] Color, UA Yellow [facility] Glucose, UA Negative Negative - 2000(110) ++++ mg/dL [facility] Interpretation and review of laboratory results Normal [facility] Ketones, UA Negative Negative - 160(16) ++++ mg/dL [facility] Leukocytes, UA Trace Negative - 500+++ Kaylyn/mcL [facility] Nitrite, UA Negative Negative - Positive [facility] pH, UA 7 5 - 9 [facility] Protein, UA Negative Negative - 1999(20) ++++ mg/dL [facility] Spec Grav, UA 1.025 1 - 1.03 [facility] Urobilinogen, UA 0.2 0.2 - 12 mg/dL [facility] PATHOLOGY REQUEST FOR LAB CO RPon 11-07-2024 PATHOLOGY REQUEST FOR LAB KENNEDY [facility] Comment on above: See report. Scanned copy available in EMR. [facility] HCG ( test) Ql (U)o n 10-31-2024 Interpretation and review of laboratory results Normal [facility] Preg Test, Ur Negative Negative [facility] Urinalysis macro (dipstick) panel (U)on 10-31-2024 Bilirubin, UA Negative Negative - 4(70) +++ mg/dL [facility] Blood, UA Positive Negative - 50 Terell/mcL [facility] Comment on above: large Clarity, UA Clear [facility] Color, UA Yellow [facility] Glucose, UA Negative Negative - 1999(110) ++++ mg/dL [facility] Interpretation and review of laboratory results Normal [facility] Ketones, UA Negative Negative - 160(16) ++++ mg/dL [facility] Leukocytes, UA Negative Negative - 500+++ Kaylyn/mcL [facility] Nitrite, UA Negative Negative - Positive [facility] pH, UA 5.5 5 - 9 [facility] Protein, UA Negative Negative - 1999(20) ++++ mg/dL [facility] Spec Grav, UA 1.03 1 - 1.03 [facility] Urobilinogen, UA 0.2 0.2 - 12 mg/dL [facility] IGP,APTIMA HPV,AGE GDLNon AGE GDLN ACOG TESTING Note . [facility] Comment on above: TESTS RESULT FLAG UN ITS REF RANGE LAB Clinician Provided Cytology Information Source.............Cervix;Endocervix No. of containers..01 ThinPrep Vial Age Algo ACOG Olinda... FLAG LEGEND: L-Low Normal,H-High Normal,LL-Alert Low,HH-Alert High <-Panic Low,>-Panic High,A-Abnormal,AA-Critical Abnormal Performed at: 01 =[address] [phone] Leisa Rviera MD, HPV APTIMA Positive Abnormal Negative [facility] Comment on above: This nucleic acid am plification test detects fourteen high- risk HPV types (16,18,31,33,35,39,45,51,52,56,58,59,66,68) without differentiation. Performed at: =[address] [id number] Touch Up Worker: Leisa Rivera MD, Phone: [phone] Performed at: [address] [id number] Touch Up Worker: Leisa Rivera MD, Phone: [phone] IGP, RFX APTIMA HPV ASCU Note Abnormal . [facility] Comment on above: TESTS RESULT FLAG U NITS REF RANGE LAB DIAGNOSIS: [A] 02 EPITHELIAL [...] are present. Performed by: 02 Janelle Hooper, Dance Teacher (ASCP) Electronically si... Fanny Phan MD, Pathologist . 02 Pathologist [...] <-Panic Low,>-Panic High,A-Abnormal,AA-Critical Abnormal Performed at: [address] [id number] Leisa Rivera MD, Interpretation and review of laboratory results Abnormal [facility] BRUSH-SPATULA CERVIX ENDOCERVIX CLIN[facility] Cytology Cervical or vaginal smear or scraping studyOrdered By: Radha Hayes on 10-14-2023 NOM Enertiv PAP ACOG PANEL 2: 21 to 29on 10-14-[address] [facility] Comment on above: Performed By: #### [id number] #### [facility] [address] [place] [address] Dr. Thu Whitman Age Gdln ACOG Testing 21-[address] [facility] Comment on above: Performed By: #### 4 [id number] #### [facility] [address] [place] [address] Dr. Thu Whitman DIAGNOSIS: Comment Normal [facility] Comment on above: Result Comment: NEGA TIVE FOR INTRAEPITHELIAL LESION OR MALIGNANCY. Performed By: #### 4 [id number] #### [facility] [address] [place] [address] Dr. Thu Whitman Methodology: Comment Normal [facility] Comment on above: Result Comment: This liquid based ThinPrep(R) pap test was screened with the use of an image guided system. Performed By: #### 4 [id number] #### [facility] [address] [place] [address] Dr. Thu Whitman Note: Comment Normal [facility] Comment on above: Result Comment: The Pap smear is a screening test designed to aid in the detection of premalignant and malignant conditions of the uterine cervix. It is not a diagnostic procedure and should not be used as the sole means of detecting cervical cancer. Both false-positive and false-negative reports do occur. . Performed By: #### 4 [id number] #### [facility] [address] [place] [address] Dr. Thu Whitman Performed by: Comment Normal [facility] Comment on above: Result Comment: Denisse Dukes, Senior Technical Recruiter Performed By: #### 4 [id number] #### [facility] [address] [place] [address] Dr. Thu Whitman Reflex Criteria: Comment Normal [facility] Comment on above: Result Comment: The HPV DNA reflex criteria were not met with this specimen result therefore, no HPV testing was performed. . Performed By: #### 4 [id number] #### [facility] [address] [place] [address] Dr. Thu Whitman Specimen adequacy: Comment Normal [facility] Comment on above: Result Comment: Sati sfactory for evaluation. Endocervical and/or squamous metaplastic cells (endocervical component) are present. Performed By: #### 4 [id number] #### [facility] [address] [address] [address] Thu Whitman CBC AUTO DIFFon 07-27-2022 BASO # 0.1 103/ul Normal 0.0-0.1 [facility] Comment on above: Performed By: #### C BC #### [facility] [address] [address] [address] Thu Whitman Basophils/100 WBC (Bld) 1.0 % Normal 0.2-2.0 [facility] Comment on above: Performed By: #### C BC #### [facility] [address] [place] [address] Dr. Thu Whitman EO # 0.1 103/ul Normal 0.0-0.7 [facility] Comment on above: Performed By: #### C BC #### [facility] [address] [place] [address] Dr. Thu Whitman Eosinophils/100 WBC (Bld) 2.0 % Normal 0.9-7.0 [facility] Comment on above: Performed By: #### C BC #### [facility] [address] [place] [address] Dr. Thu Whitman Erythrocyte distribution width (RBC) [Ratio] 12.2 % Normal 11.0-15.0 [facility] Comment on above: Performed By: #### C BC #### [facility] [address] [place] [address] Dr. Thu Whitman Hematocrit (Bld) [Volume fraction] 43.3 % Normal 36.0-48.0 [facility] Comment on above: Performed By: #### C BC #### [facility] [address] [place] [address] Dr. Thu Whitman Hemoglobin (Bld) [Mass/Vol] 13.8 g/dL Normal 12.0-16.0 [facility] Comment on above: Performed By: #### C BC #### [facility] [address] [place] [address] Dr. Thu Whitman IG # 0.01 10e3/ul Normal 0.00-0.03 [facility] Comment on above: Performed By: #### C BC #### [facility] [address] [place] [address] Dr. Thu Whitman IG % 0.2 % Normal 0.0-0.5 [facility] Comment on above: Performed By: #### C BC #### [facility] [address] [place] [address] Dr. Thu Whitman LYMPH # 2.3 103/ul Normal 1.2-3.8 [facility] Comment on above: Performed By: #### C BC #### [facility] [address] [place] [address] Dr. Thu Whitman Lymphocytes/100 WBC (Bld) 47.2 % Normal 20.5-60.0 [facility] Comment on above: Performed By: #### C BC #### [facility] [address] [place] [address] Dr. Thu Whitman MANUAL DIFF REQ NO Normal [facility] Comment on above: Performed By: #### C BC #### [facility] [address] [place] [address] Dr. Thu Whitman MCH (RBC) [Entitic mass] 28.5 pg Normal 26.7-34.0 [facility] Comment on above: Performed By: #### C BC #### [facility] [address] [place] [address] Dr. Thu Whitman MCHC (RBC) [Mass/Vol] 31.9 g/dL Normal 29.9-35.2 [facility] Comment on above: Performed By: #### C BC #### [facility] [address] [place] [address] Dr. Thu Whitman MCV (RBC) [Entitic vol] 89.5 fL Normal 81.0-99.0 [facility] Comment on above: Performed By: #### C BC #### [facility] [address] [place] [address] Dr. Thu Whitman MONO # 0.4 103/ul Normal 0.3-0.8 [facility] Comment on above: Performed By: #### C BC #### [facility] [address] [place] [address] Dr. Thu Whitman Monocytes/100 WBC (Bld) 7.4 % Normal 1.7-12.0 [facility] Comment on above: Performed By: #### C BC #### [facility] [address] [place] [address] Dr. Thu Whitman NEUT # 2.1 103/ul Normal 1.4-6.5 [facility] Comment on above: Performed By: #### C BC #### [facility] [address] [place] [address] Dr. Thu Whitman Neutrophils/100 WBC (Bld) 42.2 % Critically low 43.0-75.0 [facility] Comment on above: Performed By: #### C BC #### [facility] [address] [place] [address] Dr. Thu Whitman Platelet mean volume (Bld) [Entitic vol] 10.0 fL Normal 9.5-13.5 [facility] Comment on above: Performed By: #### C BC #### [facility] [address] [place] [address] Dr. Thu Whitman PLT 218 103/ul Normal 150-450 [facility] Comment on above: Performed By: #### C BC #### [facility] [address] [place] [address] Dr. Thu Whitman RBC 4.84 106/ul Normal 4.20-5.40 [facility] Comment on above: Performed By: #### C BC #### [facility] [address] [place] [address] Dr. Thu Whitman WBC 4.9 103/ul Normal 4.0-11.0 [facility] Comment on above: Performed By: #### C BC #### [facility] [address] [place] [address] Dr. Thu Whitman FREE T4on 07-27-2022 Free T4 [Mass/Vol] 0.85 ng/dL Normal 0.76-1.46 [facility] Comment on above: Performed By: #### F T4 #### [facility] [address] [place] [address] Dr. Thu Whitman GLYCOHEMOGLOBIN A1Con 2022 ADA RECOMMENDATION SEE BELOW Normal [facility] Comment on above: Result Comment: ADA RECOMMENDED LIMIT 4.0 - 6.0 ADA THERAPEUTIC TARGET < 7.0 ACTION SUGGESTED > 7.0 Performed By: #### A 1C #### [facility] [address] [address] [address] Thu Whitman Glucose [Mass/Vol] 94 mg/dL Normal [facility] Comment on above: Performed By: #### A 1C #### [facility] [address] [address] [address] Thu Whitman HbA1c (Bld) [Mass fraction] 4.9 % Normal 4.5-6.2 [facility] Comment on above: Performed By: #### A 1C #### [facility] [address] [place] [address] Dr. Thu Whitman PREG QUANT HCGon 07-27-2022 HCG QUANT <[address] [facility] Comment on above: Performed By: #### T SH, PREGQNT #### [facility] [address] [address] [address] Thu Whitman HCG RANGE SEE BELOW Normal [facility] Comment on above: Result Comment: 5-50 0.2-1 WEEK 50-500 1-2 WEEKS 100-5,000 2-3 WEEKS 500-10,000 3-4 WEEKS 1,000-50,000 4-5 WEEKS 10,000-100,000 5-6 WEEKS 15,000-200,000 6-8 WEEKS 10,000-100,000 2-3 MONTHS Performed By: #### T SH, PREGQNT #### [facility] [address] [place] [address] Dr. Thu Whitman PROTIMEon 07-27-2022 INR Coag (PPP) [Relative time] 1.04 {INR} Normal [facility] Comment on above: Performed By: #### P TT, PT #### [facility] [address] [place] [address] Dr. Thu Whitman INR GUIDELINES SEE BELOW Normal [facility] Comment on above: Result Comment: HELGA RED INR: 2.0 - 3.0 CONDITIONS NOT LISTED BELOW 2.5 - 3.5 FOR PROSTHETIC HEART VALVE REPLACEMENT 2.5 - 3.5 RECURRENT THROMBOSIS Performed By: #### P TT, PT #### [facility] [address] [place] [address] Dr. Thu Whitman PT Coag (PPP) [Time] 11.0 s Normal 9.0-11.6 [facility] Comment on above: Performed By: #### P TT, PT #### [facility] [address] [place] [address] Dr. Thu Whitman PTTon 07-27-2022 aPTT Coag (Bld) [Time] 28.9 s Normal 22.3-36.2 [facility] Comment on above: Performed By: #### P TT, PT #### [facility] [address] [place] [address] Dr. Thu Whitman TSHon 07-27-2022 TSH 1.549 uIU/mL Normal 0.358-3.740 [facility] Comment on above: Performed By: #### T SH, PREGQNT #### [facility] [address] [place] [address] Dr. Thu Whitman US PELVIS AND TRANSVAGon [...] CALLIE WEISS Date: 2022-07-27 11:20 Normal [facility] COVID-19, Rapidon 07-31-2021 SARS-CoV-2 (COVID-19) RNA TASNEEM+probe Ql (Unsp spec) Not detected Not Detected [facility] Comment on above: Rapid NAAT: The specimen [...] management decisions. Fact sheet for Healthcare Providers: https://www.fda.gov/media/074944/download Fact sheet for Patients: https://www.fda.gov/media/646359/download Methodology: Isothermal Nucleic Acid Amplification Specimen Description .NASOPHARYNGEAL SWAB [facility] Provider Letteron 12-31-2020 Provider Letter (Inserted Image. [...] your prompt attention to this matter. Sincerely, [facility] [address] Normal [facility] CBCon 08-05-2020 Erythrocyte distribution width (RBC) [Ratio] 12.5 % Normal 11.5 - 14.5 [facility] Comment on above: Performed By: #### C BC #### [address] [address] Hematocrit (Bld) [Volume fraction] 39.1 % Normal 36.0 - 46.0 [facility] Comment on above: Performed By: #### C BC #### [address] [id number] Hemoglobin (Bld) [Mass/Vol] 13.2 g/dL Normal 12.0 - 16.0 [facility] Comment on above: Performed By: #### C BC #### [address] [address] MCHC (RBC) [Mass/Vol] 33.7 g/dL Normal 32.0 - 36.0 [facility] Comment on above: Performed By: #### C BC #### [address] [address] MCV (RBC) [Entitic vol] 93 fL Normal 80 - 100 [facility] Comment on above: Performed By: #### C BC #### [address] [address] Platelets (Bld) [#/Vol] 189 10*3/uL Normal 150 - 450 [facility] Comment on above: Performed By: #### C BC #### [address] [address] RBC (Bld) [#/Vol] 4.21 x10E12/L Normal 4.00 - 5.20 [facility] Comment on above: Performed By: #### C BC #### [address] [address] WBC (Bld) [#/Vol] 4.9 10*3/uL Normal 4.4 - 11.3 [facility] Comment on above: Performed By: #### C BC #### [address] [address] HCG,SERUM QUALITATIVEon 07-22 HCG,SERUM QUALITATIVE Negative Normal Negative [facility] Comment on above: Performed By: #### H CGS #### [address] [address] Provider Note - ED v2on 07-22 Provider Note - ED v2 Provider Note - ED v2: Chart Review: ED NOTES ED NOTES: HPI: Patient started her period on Wednesday and has noticed increased bleeding ever since. She states she is feeling approximately 2 pads per hour. Patient does not take any current control pills and follows up with Dr. Dias WELF[employer] C[employer]RE MANAGER in [place]. She denies any nausea vomiting or fever. [...] Alert and oriented x4, GCS 15 , fraud investigator II-XII grossly intact. Sensation and motor function of extremities grossly intact. Psych: Appropriate mood and affect. I have reviewed and confirmed nurses/medics notes for patient past, social and family history. Portions of this note were dictated by speech recognition. An attempt at proof reading was made to minimize errors. Minor errors in recording studio setup worker may be present. HISTORY OF PRESENTING ILLNESS [...] Current Medications SIGNIFICANT EVENTS: No documented data. WELFARE CENTRE MANAGER: Is : unable to answer Is : [...] SIGNS: T PRBP SpO2O2(LPM) %FiO2 Method 05-Aug-2020 13:37:00-2984306/60 100 05-Aug-2020 12:36:00-929070525/74 100 05-Aug-2020 12:05:[id number]/74 100 MEDICAL DECISION MAKING/ED COURSE MDM/ED COURSE: 1330-final results reviewed with patient. Lab work here was unremarkable including a negative test and stable hemoglobin and hematocrit. Patient has stable vital signs and I discussed with her the option of me calling her WELFARE CENTRE MANAGER or her taking care of it on [...] I do recommend that you contact your WELFARE CENTRE MANAGER today or tomorrow and discuss your symptoms [...] patient: no Electronic Signatures: Jitendra Lux I (MAGNETIC DOCTOR-HELPDESK ADMINISTRATOR) (Signed 05-Aug-2020 13:41) Authored: ED Notes, HPI, PMH, Results/Vital Signs, MDM/ED Course, Clinical Impression, Attestation, Chart Review, Scores Last Updated: 05-Aug-2020 13:41 by Jitendra Lux I (MAGNETIC DOCTOR-HELPDESK ADMINISTRATOR) [facility] Screen - Adult Emergenc yon 08-05-2020 Risk Screen - Adult Emergency Preferred Language: Preferred Language: Preferred Language for Discussing Health Care (patient/designee)Burundian Advanced Directives: Advance Directive/DNRno Family Violence Adult: Abuse Screen: Are you or have you been threatened or abused physically, emotionally, or sexually by anyoneno Learning Assessment (Patient): Learning Assessment (Patient): Patient is Able to be Assessed for Learningyes Factors Influencing Readiness to Learnn/a Factors that Impact Ability to Learnnone Devices/Methods Used to Communicatenone Learning Preferencesverbal instruction; written material Cultural Considerationsnone Developmental Considerationsnone Worship Considerationsnone Learning Assessment (Other Learner): Learning Assessment (Other Learner): Other learner availableno Pressure Injury/TB/Substance: Pressure Injury: Do you have a coughno Substance Use Current or Former Historynever: Cigarette/Tobacco, e-Cigarette/Vaping, Alcohol, Street Drugs Admission Risk Screen: Significant IndicatorsComplete CAGE: CAGE: Is this an injured patient at a Tra[place] Center ([facility]/[place]/ [place]): no Electronic Signatures: Kay Medley (RN) (Signed 05-Aug-2020 12:43) Authored: Preferred Language, Advanced Directives, Family Violence Adult, Learning Assessment (Patient), Learning Assessment (Other Learner), Pressure Injury/TB/Substance, Pressure Injury, CAGE Last Updated: 05-Aug-2020 12:43 by Kay Meldey (BRENDA) [facility] Triage - EDon 08-05-2020 Triage - ED [...] Accompanied By: self Language: Spoken Language Preferred: Burundian Reading Language Preferred: Burundian Present on Arrival: Device Present on Arrival [...] obeys commands Best Verbal Response: (V5) oriented Tish Score: 15 Allergies: no Last menstrual period: 03-Aug-2020 [employer]GER History: control Patient has homicidal thoughts: no [...] Past Medical History Reviewedyes Electronic Signatures: Kay Medley) (Signed 05-Aug-2020 13:59) Authored: Quick Triage, Risk Screens, Pain, Arrival, ABCD, Travel History, Chart Review, Scores, Past Medical History Last Updated: 05-Aug-2020 13:59 by Kay Medley (BRENDA) References: 1. Data Referenced From Provider Note - ED v2 05-Aug-2020 12:25 Normal [facility] Ambulatory Clinical Summaryo n 07-09-2020 Ambulatory Clinical Summary {[id number] Normal [facility] Obstetrics Office/Clinic Not john 07-09-2020 Obstetrics Office/Clinic Note Chief Complaint 6 week PP and PO, delivered 05-29-2020, had tubel 06-26-2020, EPDS score 9 , bottlefeeding - formula [place] Depression Score EPDS Score: 9 History of [...] routine follow-up) Ordered: care only (separate procedure) [id number] Orders: acetaminophen-oxycodone, 1 tab(s), Oral, q6hr Pain 4-7, 15 tab(s), Refill(s) 0, [facility] 320, 162, cm, 06/18/20 7:34:00 EST, Height/Length Dosing, 70.6, kg, 06/18/20 7:34:00 EST, Weight Dosing docusate, 100 mg = 1 cap(s), Oral, BID, Take to avoid constipation, # 40 cap(s), Refills(s) 0, Pharmacy: [facility] [place] [address], 162, cm, 06/18/20 7:34:00 EST, Height/Length Dosing, 70.6, kg, 06/18/20 7:34:00 EST, Weight Dosing ibuprofen, 600 mg = 1 tab(s), Oral, q6hr, PRN Pain 1-3, # 30 tab(s), Refills(s) 0, Pharmacy: [facility] [place] [address], 162, cm, 06/18/20 7:34:00 EST, Height/Length Dosing, 70.6, kg, 06/18/20 7:34:00 EST, Weight Dosing Follow-up With When Contact Information [facility] [place] In 1 year Additional Instructions: Problem List/Past [...] DENIES, 07/09/2020 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 Never Smokeless Tobacco Use:., 07/09/2020 Family History Diabetes mellitus type 1: Grandparent. Hypertension: Grandparent. [facility] Patient Educationon 07-09-19 Patient Education Heart Disease Preven tion Heart [...] heart disease and stroke prevention, visit the [place] [employer] website at www.americanheart.org Document Released: 01/19/2005 Document Revised: 12/06/2012 Document Reviewed: 08/03/2008 ExitCare? Patient Information ?2013 [employer]. [facility] Pre-Certification Formon Pre-Certification Form [id number]:12 7 [facility] IntraOperative Documentson 0 07-01-2020 IntraOperative Documents [id number]:12 7 [facility] Main OR Intraoperative Recor don 07-01-2020 Main OR Intraoperative Record IntraOp Document Type FT Summary Primary Physician: Ludivina GARDNER MD Finalized Date/Time: 07/01/20 09:20:13 Pt. Name: FEMI KRAMER/Sex: 1995 Female Med Rec #: [id number] Physician: Ludivina GARDNER MD Financial #: [id number] Pt. Type: A Room/Bed: Admit/Disch: 06/26/20 11:11:26 - 06/26/20 17:05:00 Institution: Case Times FT Entry 1 Patient Times In Room 06/26/20 13:41:00 Out Room 06/26/20 14:28:00 Procedure Times Start 06/26/20 14:02:00 Stop 06/26/20 14:24:00 Anesthesia Times Start 06/26/20 13:41:00 Stop 06/26/20 14:28:00 Last Modified By: Barrett GUTIERREZ, Day Phillip 06/26/20 14:28:41 General Comments: 07/01/20 Chart open to review and send charges. Chlesey Dumont RN Case Attendance FT Entry 1 Entry 2 Entry 3 Case Attendee Pamela Orr MD, Ludivina Hyde RN, Day Phillip Role Performed Anesthesiologist Surgeon - Primary Publisher Assistant - Primary [employer] Superintendent Time In 06/26/20 13:41:00 06/26/20 13:41:00 06/26/20 13:41:00 Time Out 06/26/20 14:28:00 06/26/20 14:28:00 06/26/20 14:28:00 Procedure TUBAL LIGATION TUBAL LIGATION TUBAL LIGATION LAPAROSCOPIC(Bilateral) LAPAROSCOPIC(Bilateral) LAPAROSCOPIC(Bilateral) Comments DR MILLIGAN SUPERVISING Last Modified By: Barrett RN, Day Hyde RN, Day Hyde RN, Day Phillip 06/26/20 14:36:36 06/26/20 14:36:36 06/26/20 14:36:36 Entry 4 Entry 5 Case Attendee Janelle Orozco RN, CNOR, Wagner Role Performed Scrub - Primary CHANNEL ACCOUNT MANAGER Time In 06/26/20 13:41:00 06/26/20 13:41:00 Time Out 06/26/20 14:28:00 06/26/20 14:28:00 Procedure TUBAL LIGATION TUBAL LIGATION LAPAROSCOPIC(Bilateral) LAPAROSCOPIC(Bilateral) Comments Last Modified By: Barrett GUTIERREZ, Day Hyde RN, Day Phillip 06/26/20 14:36:36 06/26/20 14:36:36 Perioperative Protocols FT [...] No Time Out Pamela Orr, Given Participants TAWANDA Ludivina SARMIENTO Crosby RN, Amy J, Ojeda, Rachel L, Beeker RN, MARYJANEOR, Wagner Time Out Complete 06/26/20 14:01:00 Outcomes Met? Yes Last Modified By: Day Hyde RN 06/26/20 14:05:28 Post-Care Text: The patient is free from signs and symptoms of injury caused by extraneous objects Allergy Information FT Pre-Care Text: Verifies allergies Entry 1 Allergies Reviewed? Yes Allergies Reviewed Self/Patient With Outcomes Met? Yes Last Modified By: Day Hyde RN 06/26/20 10:11:50 Post-Care Text: The [...] Class 2 - Clean-Contaminated Last Modified By: Day Hyde RN 06/26/20 14:36:38 General Case Data FT Pre-Care Text: Classifies surgical wound, implements aseptic technique, initiates traffic control Entry 1 Case Information OR OR 6 FT Case Level Level 3 Wound Class 2 - Clean-Contaminated Specialty Obstetric Gynecology ASA Class 2 Preop Diagnosis ELECTIVE STERILIZATION Postop Same As Preop Yes Postop Diagnosis ELECTIVE STERILIZATION Outcomes Met? Yes Last Modified By: Day Hyde RN 06/26/20 14:05:35 Post-Care Text: The patient is free from signs and symptoms of infection Skin Assessment (Pre Procedure) FT Pre-Care Text: Implements protective measures to prevent skin/ tissue injury due to thermal or mechanical sources Evaluates for signs and symptoms of physical injury to skin and tissue Entry 1 Skin Integrity Intact, [place], Warm, and Skin Abnormality No Dry Outcomes Met? Yes Last Modified By: Day Hyde RN 06/26/20 14:05:46 Post-Care Text: The [...] positioning En (more content not included)... Normal [facility] Coding Summary.on 06-29-2020 Coding Summary. CODING DATE: [facility] STATUS: Home (Routine DC) PAYOR: Medicaid EA DESCRIPTION 0999 UNASSIGNED ADMIT DX: REASON FOR VISIT DX: Z30.2 Encounter for sterilization FINAL DX: PRINCIPAL: Z30.2 Encounter for sterilization SECONDARY: PYMT PROC EAPG STAT DESCRIPTION DOCTOR NAME DATE 85273 Laparoscopy, surgical; Ludivina GARDNER MD 06/26/2020 with removal of adnexal structures (partial or total oophorectomy and/or salpingectomy) 38520 Anesthesia for Milligan Jr. DO, Wilfred 06/26/2020 intraperitoneal procedures in lower abdomen including laparoscopy; not otherwise specified NOTE: The code number assigned matches the documented diagnosis and / or procedure in the patient's chart. However, the narrative phrase printed from the coding software may appear abbreviated, or result in slightly different terminology. Coded By: Kelly Leal Date Saved: 06/29/2020 09:41 pm [facility] Coding Summary. CODING DATE: [facility] STATUS: Home (Routine DC) PAYOR: Medicaid EAPG DESCRIPTION 0999 UNASSIGNED ADMIT DX: REASON FOR VISIT DX: Z30.2 Encounter for sterilization FINAL DX: PRINCIPAL: Z30.2 Encounter for sterilization SECONDARY: PYMT PROC EAPG STAT DESCRIPTION DOCTOR NAME DATE 20623 Laparoscopy, surgical; Ludivina GARDNER MD 06/26/2020 with removal of adnexal structures (partial or total oophorectomy and/or salpingectomy) 29247 Anesthesia for Milligan Jr. DO, Wilfred 06/26/2020 intraperitoneal procedures in lower abdomen including laparoscopy; not otherwise specified NOTE: The code number assigned matches the documented diagnosis and / or procedure in the patient's chart. However, the narrative phrase printed from the coding software may appear abbreviated, or result in slightly different terminology. Revised Coded By: Kelly Leal Revised Date Saved: 06/29/2020 09:41 pm [facility] [place] 06-28-2020 Consent [id number]#1.00CD:1 27 [facility] Postoperative Documentson Postoperative Documents [id number]#1.00CD:1 27 Normal [facility] [place] 06-27-2020 Consent [id number]#1.00CD:12 7 [facility] Consent for Anesthesiaon Consent for Anesthesia [id number]#1.00CD:12 7 [facility] Consent for Procedure/Surger yon 06-27-2020 Consent for Procedure/Surgery [id number]#1.00CD:12 7 [facility] Discharge Instructionson Discharge Instructions [id number]#1.00CD:12 7 [facility] H&P Updateon 06-27-2020 H&P Update [id number]#1.00CD:12 7 [facility] IntraOperative Documentson 0 06-27-2020 IntraOperative Documents [id number]#1.00CD:12 7 [facility] IntraOperative Documents [id number]#1.00CD:12 7 [facility] Preoperative Documentson Preoperative Documents [id number]#1.00CD:12 7 [facility] Consent for Treatmenton Consent for Treatment [id number]#1.00CD:12 7 [facility] Inpatient Patient Summaryon 06-26-2020 Inpatient Patient Summary [address] [address] [facility] Clinical Discharge Instructions PERSON INFORMATION Name: FEMI KRAMER PHYSICIANS Admitting Physician: Ludivina GARDNER MD Attending Physician: Ludivina GARDNER MD PCP: GIULIANA MCKEE DO Discharge Diagnosis: Encounter for female sterilization procedure Comment: PATIENT EDUCATION INFORMATION Instructions: Post Op Patient Instructions - FT (Custom) Medication Leaflets: Follow up: With: Address: When: Ludivina GARDNER [address] [place] [phone] In 2 weeks 07/10/2020 Comments: already scheduled Type Location Start Finish [facility] 07/09/2020 10:30 AM 07/09/2020 11:00 AM Confirmed MEDICATION LIST New Medications [facility] [address] [place] [address], [phone] acetaminophen-oxycodone (Percocet 325 mg-5 mg Tab) 1 [...] 4 hours as needed Pain/Fever. Comment: Normal [facility] Main OR PACU I [facility] Main OR PACU I Record PACU Phase I Document Type FT Summary Primary Physician: Ludivina GARDNER MD Finalized Date/Time: 06/26/20 16:16:53 Pt. Name: FEMI KRAMER Leola Ivy/Sex: 1995 Female Med Rec #: [id number] Physician: Ludivina GARDNER MD Financial #: [id number] Pt. Type: A Room/Bed: Admit/Disch: 06/26/20 11:11:26 [...] By: Giovanna Plunkett RN 06/26/20 16:16 Normal [facility] Main OR PACU II [facility] Main OR PACU II Record PACU Phase II Document Type FT Summary Primary Physician: Ludivina GARDNER MD Finalized Date/Time: 06/26/20 18:39:38 Pt. Name: FEMI KRAMER Leola Samaniego/Sex: 1995 Female Med Rec #: [id number] Physician: Ludivina GARDNER MD Financial #: [id number] Pt. Type: A Room/Bed: Admit/Disch: 06/26/20 11:11:26 [...] By: Evangelina Juarez RN 06/26/20 18:39 Normal [facility] Main OR Preoperative Recordo n 06-26-2020 Main OR Preoperative Record PreOp Document Type FT Summary Primary Physician: Ludivina GARDNER MD Finalized Date/Time: 06/26/20 14:11:47 Pt. Name: FEMI KRAMER/Sex: 1995 Female Med Rec #: [id number] Physician: Ludivina GARDNER MD Financial #: [id number] Pt. Type: A Room/Bed: Admit/Disch: 06/26/20 11:11:26 - Institution: Case Times PreOp FT Pre-Care Text: Verifies consent for planned procedure, identifies individual values and wishes concerning care, includes family members in perioperative teaching Entry 1 Patient Times. In Pre Surgery 06/26/20 11:15:00 Out Pre Surgery 06/26/20 13:39:00 Outcomes Met? Yes Last Modified By: Day Hyde RN 06/26/20 14:11:46 Post-Care Text: The patient participates in decisions affecting his or her perioperative plan of care Finalized By: Day Hyde RN Document Signatures Signed By: Day Hyde RN 06/26/20 14:11 Normal [facility] Monitor [facility] 06-26-2020 Monitor Record [id number]#1.00CD:1 27 Normal [facility] Operative Reporton Operative Report Patient: MÓNICA KRAMER Age: 24 years Sex: Female : 1995 Associated Diagnoses: None Author: Ludivina GARDNER MD Postoperative Information Procedure: Laparoscopic bilateral salpingectomy Date/ Time: 06/26/2020 14:36:00 Preoperative Diagnosis: Encounter for female sterilization procedure (GHV53-RN Z30.2, Discharge, Medical). Postoperative Diagnosis: same. Performed [...] counts were correct x2. Ludivina Gardner MD [facility] Comment on above: Result Comment: Elec tronically Signed By: Ludivina GARDNER MD\.br\Date and Time Signed: 06/26/20 14:40 EST Outpatient Surgery Discharge Instructionon 06-26-2020 Outpatient Surgery Discharge Instruction [address] [address] Patient Discharge Instructions PERSON INFORMATION Name: FEMI [...] THE NEAREST EMERGENCY ROOM OR CALL 911 I, FEMI KRAMER, have received the attached patient education materials/instructions and have verbalized understanding: May we do a follow up call? Yes No I was present when discharge instructions were given Patient Signature ___ Date Clinican/Nurse Signature Date Follow up: With: Address: When: Ludivina GARDNER [address] [place] [address] In 2 weeks 07/10/2020 Comments: already scheduled Type Location Start Finish [facility] 07/09/2020 10:30 AM 07/09/2020 11:00 AM Confirmed [...] to serve you. Thank you for choosing [facility] HERE ARE THE MEDICATION CHANGES THAT OCCURRED DURING YOUR HOSPITAL STAY New Medications [facility] [address] [place] [id number], [phone] acetaminophen-oxycodone (Percocet 325 mg-5 mg Tab) 1 [...] needed Pain/Fever. PATIENT EDUCATION INFORMATION Instructions: Normal [facility] Patient Education - Texton 0 06-26-2020 Patient Education - Text Normal [facility] Progress Note-Physicianon Progress Note-Physician Patient: FEMI KRAMER Age: 24 years Sex: Female : 1995 Associated Diagnoses: None Author: Wilfred Milligan Jr., DO Postoperative Information Post Operative Note: Post Anesthesia Care Unit. Anesthetic utilized: General. Health Status Allergies: Allergic Reactions (Selected) No Known Allergies Problem list: All Problems Supervision of normal in third trimester / SNOMED CT 986878143 / Confirmed Encounter for sterilization / SNOMED CT 459184005 / Confirmed Resolved: Depression during , antepartum / SNOMED CT 4594311148 Resolved: Genital herpes simplex virus (HSV) infection in mother affecting / SNOMED CT 8069972357 Resolved: / SNOMED CT 284389308 Resolved: / SNOMED CT 025589319 need for PA Canceled: Supervision of normal in second trimester / SNOMED CT 532317156 Physical Examination Vital Signs 06/26/2020 15:05 EST [...] noted. Plan Transfer/ Discharge: Condition stable. Normal [facility] Comment on above: Result Comment: Elec tronically [...] Refills(s) 0 Histories Past Medical History: Resolved (828663424): Onset on 08/30/2019 at 24 years. Resolved on 05/29/2020 at 24 years. 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 Resolved on 04/12/2017 at 21 years. Genital herpes simplex virus (HSV) infection in mother affecting (2167135923): Resolved. Depression during , antepartum (0968476157): Resolved. Family History: Hypertension Grandparent Diabetes mellitus type 1 Grandparent Procedure history: Tonsillectomy (504926582). 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 Plan [place] [employer]esthesiologists (ASA) physical status classification: Class II. Anesthetic Preoperative Plan Anesthesia: General. . Anesthetic plan, risks, benefits, and alternatives discussed with the patient and/or family. Patient verbalized understanding. Adverse reactions, complications, and alternatives discujssed. Consent signed and on chart.. Normal [facility] Comment on above: Result Comment: Elec tronically Signed By: Wilfred Milligan Jr., DO\.portillo\Date and Time Signed: 06/26/20 12:48 EST Nursing Assessmenton Nursing Assessment [id number]#1.00CD:12 7 Normal [facility] Coding Summary.on 06-22-2020 Coding Summary. CODING DATE: FINAL [facility] STATUS: Home (Routine DC) PAYOR: Medicaid EAPG DESCRIPTION 0388 LEVEL III MICROBIOLOGY TESTS ADMIT [...] Jackie Mccartney Date Saved: 06/22/2020 02:45 pm Normal [facility] Formson 06-20-2020 Forms [id number]#1.00CD:12 7 Normal [facility] Priority Order-Wilmar 2019 Priority Order-STAT Comment Invalid Interpretation Code [facility] Comment on above: Result Comment: Rece ived Performed at: [facility] [address] [facility] [place] [id number] MD Gene Rae Performed By: #### S ARS-CoV-2, TASNEEM, [id number] #### [facility] [address] [place] [address] SARS-CoV-2, NAAon 06-20-2020 SARS-CoV-2 (COVID-19) RNA TASNEEM+probe Ql (Resp) Not detected Invalid Interpretation Code Not Detected [facility] Comment on above: Result Comment: This nucleic acid amplification test was developed and its performance characteristics determined by [employer]. Nucleic acid amplification tests include PCR and [...] detected) result in this assay. Performed at: [facility] [address] [facility] [place] [id number] MD Gene Rae Performed By: #### S ARS-CoV-2, TASNEEM, [id number] #### [facility] [address] [place] [address] Coding Summary.on 06-19-2020 Coding Summary. CODING DATE: 020 FINAL [facility] STATUS: Home (Routine DC) PAYOR: [...] CphT Date Saved: 06/19/2020 04:53 pm Normal [facility] B hCG Qual[place] 06-18-2020 Beta hCG Ql Negative Normal [facility] Comment on above: Order Comment: unles s history of hysterectomy Performed By: #### 2 [id number], [id number] #### [facility] [address] [place] [address] CBC w/Indiceson 06-18-2020 Erythrocyte distribution width (RBC) [Ratio] 11.8 % Normal 10.9-14.2 [facility] Comment on above: Performed By: #### 2 [id number], [id number] #### [facility] [address] [place] [address] Hematocrit (Bld) [Volume fraction] 45.2 % Normal 34.0-46.0 [facility] Comment on above: Performed By: #### 2 [id number], [id number] #### [facility] [address] [place] [address] Hemoglobin (Bld) [Mass/Vol] 15.0 g/dL Normal 12.0-16.0 [facility] Comment on above: Performed By: #### 2 [id number], [id number] #### [facility] [address] [place] [address] MCH (RBC) [Entitic mass] 31.0 pg Normal 27.0-34.0 [facility] Comment on above: Performed By: #### 2 [id number], [id number] #### [facility] [address] [place] [address] MCHC (RBC) [Mass/Vol] 33.2 g/dL Normal 31.4-36.0 [facility] Comment on above: Performed By: #### 2 [id number], [id number] #### [facility] [address] [place] [address] MCV (RBC) [Entitic vol] 93.3 fL Normal 80.0-100.0 [facility] Comment on above: Performed By: #### 2 [id number], [id number] #### [facility] [address] [place] [address] Platelet mean volume (Bld) [Entitic vol] 8.7 fL Normal 6.4-10.8 [facility] Comment on above: Performed By: #### 2 [id number], [id number] #### [facility] [address] [place] [address] Platelets (Bld) [#/Vol] 184.0 E9/L Normal 150.0-500.0 [facility] Comment on above: Performed By: #### 2 [id number], [id number] #### [facility] [address] [place] [address] RBC (Bld) [#/Vol] 4.8 E12/L Normal 4.3-5.9 [facility] Comment on above: Performed By: #### 2 [id number], [id number] #### [facility] [address] [place] [address] WBC corrected for nucl RBC Auto (Bld) [#/Vol] 5.0 E9/L Normal 4.0-11.0 [facility] Comment on above: Performed By: #### 2 [id number], [id number] #### [facility] [address] [place] [address] Consent for Treatmenton 05-22 Consent for Treatment [id number]#1.00CD:12 Normal [facility] H&P Updateon 06-18-2020 H&P Update [id number]#1.00CD:1 27 [facility] Pre-Certification Formon Pre-Certification Form [id number]#1.00CD:12 [facility] Consent for Procedure/Surger yon 06-06-2020 Consent for Procedure/Surgery [id number]#1.00CD:12 [facility] Physician Orderon 06-06-2020 Physician Order [id number]#1.00CD:12 [facility] Physician Orderon 06-05-2020 Physician Order [id number]#1.00CD:12 7 [facility] Coding Summary.on 06-02-2020 Coding Summary. CODING DATE: 020 FINAL [facility] DSC STATUS: Home (Routine DC) PAYOR: Medicaid GROUPERS: 807 MS-DRG VAGINAL DELIVERY WITHOUT STERILIZATION OR D&C WITHOUT CC/CUSTODIAL Low Trim 0 High Trim 999 560 [...] and parasitic diseases PROCEDURES: DOCTOR NAME DATE [id number] Delivery of Products of Ludivina GARDNER MD 05/29/2020 Conception, External Approach [id number] Introduction of Hernando Matos JR, DO 05/29/2020 Anti-inflammatory into Spinal Canal, Percutaneous Approach [id number] Introduction of Anesthetic Hernando Matos JR, DO 05/29/2020 Agent into Spinal Canal, Percutaneous Approach [id number] Drainage of Amniotic Fluid, Ludivina GARDNER MD 05/29/2020 Therapeutic from Products of Conception, Via Natural or Artificial Opening NOTE: The code number assigned matches the documented diagnosis and / or procedure in the patient's chart. However, the narrative phrase printed from the coding software may appear abbreviated, or result in slightly different terminology. Coded By: Jackie Mccartney Date Saved: 06/02/2020 05:00 pm Normal [facility] Discharge Instructionson Discharge Instructions [id number]#1.00CD:1 27 Normal [facility] Inpatient Clinical Summaryon 05-31-2020 Inpatient Clinical Summary [place] [id number] Clinical Summary Person Information Name: FEMI KRAMER Leola [facility] Age: 24 Years : 1995 Sex: Female PCP: GIULIANA MCKEE DO Marital Status: Single Race: White Ethnicity: Non- or Language: Bur[place]ian Visit Id: Visit Reason: Speciality: Acuity: 2 PP Enc Type: Inpatient Med Service: Obstetrics Arrival: 05/29/2020 06:52:16 Discharge: 05/31/2020 13:15:00 Dispo Type: Home ([facility] [place]) Address: [address] [place] [id number] Provider Notes: Patient: FEMI KRAMER Age: 24 years Sex: Female : 1995 Associated Diagnoses: None Author: Ludivina GARDNER MD Basic Information 24 yo PPD#2 s/p , [...] EST benzocaine-menthol 20%-0.5% topical spray: 1 spray(s), [place], Topical, q4hr PRN Pain, Routine, Start date 05/29/20 15:37:00 EST calcium carbonate 500 mg Chew Tab: 500 mg = 1 tab(s), Tab-Chew, Oral, q6hr PRN Control of stomach acid, Routine, Start date 05/29/20 15:37:00 EST docusate sodium 100 mg Cap: 100 mg = 1 cap(s), Cap, Oral, BID, Routine, Start date 05/29/20 21:00:00 EST hydrocortisone 2.5% Rectal Crm w/Appl: 1 ubaldo, Cream-Ubadlo, Rectal, QID PRN Other (see comment), Routine, [...] Daily, 90 tab(s), Refill(s) 4, ANY VITAMIN, [facility] [address], 163, cm, 11/07/19 8:38:00 EDT, Height/Length Measured, 71.9, kg, 11/07/19 8:38:00 EDT, Weight Measured valacyclovir 500 mg Tab: 500 mg = 1 tab(s), Oral, q12hr, # 30 tab(s), Refills(s) 1, Pharmacy: [facility] [address] [address], 163, cm, 04/25/20 11:47:00 EST, Height/Length Dosing, 78.1, kg, 04/25/20 11:47:00 EST, Weight Dosing Physical Examination Vital Signs 05/30/2020 20:16 EST Temperature Oral 36.5 DegC Heart Rate Monitored 67 bpm Systolic Blood Pressure 116 mmHg Diastolic Blood Pressure 68 mmHg Mean (more content not included)... Normal [facility] Inpatient Patient Summaryon 05-31-2020 Inpatient Patient Summary [place] [address] Patient Discharge Instructions PERSON INFORMATION Name: FEMI [...] a nearby participating provider. Type Location Start Finish [facility]UR Blanchard 07/09/2020 10:30 AM 07/09/2020 11:00 AM Confirmed Comment: NIA Engle SUMMER R, have received the [...] Instructions: Medication Leaflets: Thank you for choosing [facility] Normal [facility] Progress Note-Physicianon Progress Note-Physician Patient: FEMI KRAMER [...] EST benzocaine-menthol 20%-0.5% topical spray: 1 spray(s), [place], Topical, q4hr PRN Pain, Routine, Start date [...] Daily, 90 tab(s), Refill(s) 4, ANY VITAMIN, [facility] [address], 163, cm, 11/07/19 8:38:00 EDT, Height/Length Measured, 71.9, kg, 11/07/19 8:38:00 EDT, Weight Measured valacyclovir 500 mg Tab: 500 mg = 1 tab(s), Oral, q12hr, # 30 tab(s), Refills(s) 1, Pharmacy: [facility], 163, cm, 04/25/20 11:47:00 EST, Height/Length Dosing, 78.1, kg, 04/25/20 11:47:00 EST, Weight Dosing Problem list: All Problems Supervision of normal in third trimester / SNOMED CT 211132090 / Confirmed Depression during , antepartum / SNOMED CT 4055824471 / Confirmed Genital herpes simplex virus (HSV) infection in mother affecting / SNOMED CT 7442133395 / Confirmed Resolved: / SNOMED CT 719969826 Resolved: / SNOMED CT 569946313 Canceled: Supervision of normal in second trimester / SNOMED CT 794463885 Physical Examination VSS, Epidural catheter removed intact, Lumbar area site nontender, no erythema Intake and Output Pt. denies significant n/v, and is tolerating p.o. Vital Signs (last 24 hrs) Last Charted Temp Oral 36.5 DegC (MAY 30 20:16) SBP 116 mmHg (MAY 30 20:16) DBP 68 mmHg (MAY 30:) SpO2 98 % (MAY 30:) Pain assessment: Pain Assessment 05/31/2020 0:50 EST [...] 0 . Respiratory: Adequate air exchange with roman catholic of preoperative function.. Cardiovascular: Cardiovascular function is stable and has returned to preoperative levels.. Neurologic: Pt. has returned to preoperative baseline.. Assessment Anesthetic outcome No anesthetic complications noted. Plan Transfer/ Discharge: Patient can be discharged from anesthesia care. Condition good. Normal [facility] Comment on above: Result Comment: Elec tronically [...] Daily, 90 tab(s), Refill(s) 4, ANY VITAMIN, [facility], 163, cm, 11/07/19 8:38:00 EDT, Height/Length Measured, 71.9, kg, 11/07/19 8:38:00 EDT, Weight Measured valacyclovir 500 mg Tab: 500 mg = 1 tab(s), Oral, q12hr, # 30 tab(s), Refills(s) 1, Pharmacy: [facility], 163, cm, 04/25/20 11:47:00 EST, Height/Length Dosing, 78.1, kg, 04/25/20 11:47:00 EST, Weight Dosing Problem list: All Problems Supervision of normal in third trimester / SNOMED CT 617963333 / Confirmed Depression during , antepartum / SNOMED CT 8802895055 / Confirmed Genital herpes simplex virus (HSV) infection in mother affecting / SNOMED CT 4958104568 / Confirmed / SNOMED CT 881983348 / Confirmed Resolved: / SNOMED CT 038589338 Canceled: Supervision of normal in second trimester / SNOMED CT 422840831 Physical Examination VSS, Epidural catheter removed intact, Lumbar area site nontender, no erythema Intake and Output Pt. denies significant n/v, and is tolerating p.o. Vital Signs (last 24 hrs) Last Charted Temp Oral 36.6 DegC (MAY 29:) SBP 133 mmHg (MAY 29) DBP 82 mmHg (MAY 29) Weight 76.6 kg (MAY 29) Height 162.5 cm (MAY 29) BMI 29.01 (MAY 29) Pain assessment: Pain Assessment 05/29/2020 7:40 EST Numeric Pain Scale 0 = No pain Numeric Pain Score 0 . Respiratory: Adequate air exchange with roman catholic of preoperative function.. Cardiovascular: Cardiovascular function is stable and has returned to preoperative levels.. Neurologic: Pt. has returned to preoperative baseline.. Assessment Anesthetic outcome No anesthetic complications noted. Plan Transfer/ Discharge: Patient can be discharged from anesthesia care. Condition good. Normal [facility] Comment on above: Result Comment: Elec tronically Signed By: Carlo HANSON DOHernando CBC w/Indiceson 05-30-2020 Erythrocyte distribution width (RBC) [Ratio] 12.3 % Normal 10.9-14.2 [facility] Comment on above: Performed By: #### 2 [id number] #### [facility] [address] [place] [address] Hematocrit (Bld) [Volume fraction] 38.9 % Normal 34.0-46.0 [facility] Comment on above: Performed By: #### 2 [id number] #### [facility] [address] [place] [address] Hemoglobin (Bld) [Mass/Vol] 13.9 g/dL Normal 12.0-16.0 [facility] Comment on above: Performed By: #### 2 [id number] #### [facility] [address] [place] [address] MCH (RBC) [Entitic mass] 33.0 pg Normal 27.0-34.0 [facility] Comment on above: Performed By: #### 2 [id number] #### [facility] [address] [place] [address] MCHC (RBC) [Mass/Vol] 35.7 g/dL Normal 31.4-36.0 [facility] Comment on above: Performed By: #### 2 379036 #### [facility] [address] [place] [address] MCV (RBC) [Entitic vol] 92.3 fL Normal 80.0-100.0 [facility] Comment on above: Performed By: #### 2 744939 #### [facility] [address] [place] [address] Platelet mean volume (Bld) [Entitic vol] 9.9 fL Normal 6.4-10.8 [facility] Comment on above: Performed By: #### 2 [id number] #### [facility] [address] [place] [address] Platelets (Bld) [#/Vol] 155.0 E9/L Normal 150.0-500.0 [facility] Comment on above: Performed By: #### 2 633625 #### [facility] [address] [place] [address] RBC (Bld) [#/Vol] 4.2 E12/L Low 4.3-5.9 [facility] Comment on above: Performed By: #### 2 057569 #### [facility] [address] [place] [address] WBC corrected for nucl RBC Auto (Bld) [#/Vol] 11.2 E9/L High 4.0-11.0 [facility] Comment on above: Performed By: #### 2 [id number] #### [facility] [address] [place] [address] Progress Note-Physicianon Progress Note-Physician Patient: FEMI KRAMER [...] EST benzocaine-menthol 20%-0.5% topical spray: 1 spray(s), [place], Topical, q4hr PRN Pain, Routine, Start date [...] Daily, 90 tab(s), Refill(s) 4, ANY VITAMIN, [employer] 320, 163, cm, 11/07/19 8:38:00 EDT, Height/Length Measured, 71.9, kg, 11/07/19 8:38:00 EDT, Weight Measured valacyclovir 500 mg Tab: 500 mg = 1 tab(s), Oral, q12hr, # 30 tab(s), Refills(s) 1, Pharmacy: [facility], 163, cm, 04/25/20 11:47:00 EST, Height/Length [...] 3. Anticipate (more content not included)... Normal [facility] Comment on above: Result Comment: Elec tronically [...] EST benzocaine-menthol 20%-0.5% topical spray: 1 spray(s), [place], Topical, q4hr PRN Pain, Routine, Start date [...] Daily, 90 tab(s), Refill(s) 4, ANY VITAMIN, [facility], 163, cm, 11/07/19 8:38:00 EDT, Height/Length Measured, 71.9, kg, 11/07/19 8:38:00 EDT, Weight Measured valacyclovir 500 mg Tab: 500 mg = 1 tab(s), Oral, q12hr, # 30 tab(s), Refills(s) 1, Pharmacy: [facility], 163, cm, 04/25/20 11:47:00 EST, Height/Length [...] Anticipate d/c tomorrow. Ludivina Gardner MD Normal [facility] Comment on above: Result Comment: Elec tronically Signed By: TAWANDA SARMIENTO, Ludivina J\.br\Date and Time Signed: 05/30/20 17:55 EST ABO/Rhon 05-29-2020 ABO/Rh Positive Invalid Interpretation Code [facility] Comment on above: Performed By: #### 1 [id number], [id number], [id number], [id number] ####[facility] [address] [place] [address] ABO/Rh History Checkon 05-29 ABO/Rh History Check Verified Hx Blood Type Normal [facility] Comment on above: Performed By: #### 1 [id number], [id number], [id number], [id number] ####[facility] [address] [place] [address] ABSCon 05-29-2020 ABSC Gel Interp Negative Normal [facility] Comment on above: Performed By: #### 1 [id number], [id number], [id number], [id number] ####[facility] [address] [place] [address] Blood Bank ID#on 05-29-2020 BBID# [id number] Invalid Interpretation Code [facility] Comment on above: Performed By: #### 1 [id number], [id number], [id number], [id number] ####[facility] [address] [place] [address] CBC w/Indiceson 05-29-2020 Erythrocyte distribution width (RBC) [Ratio] 12.6 % Normal 10.9-14.2 [facility] Comment on above: Performed By: #### 2 385285 #### [facility] [address] [place] [address] Hematocrit (Bld) [Volume fraction] 41.6 % Normal 34.0-46.0 [facility] Comment on above: Performed By: #### 2 983685 #### [facility] [address] [place] [address] Hemoglobin (Bld) [Mass/Vol] 14.4 g/dL Normal 12.0-16.0 [facility] Comment on above: Performed By: #### 2 573060 #### [facility] [address] [place] [address] MCH (RBC) [Entitic mass] 32.3 pg Normal 27.0-34.0 [facility] Comment on above: Performed By: #### 2 707958 #### [facility] [address] [place] [address] MCHC (RBC) [Mass/Vol] 34.6 g/dL Normal 31.4-36.0 [facility] Comment on above: Performed By: #### 2 769944 #### [facility] [address] [place] [address] MCV (RBC) [Entitic vol] 93.5 fL Normal 80.0-100.0 [facility] Comment on above: Performed By: #### 2 266863 #### [facility] [address] [place] [address] Platelet mean volume (Bld) [Entitic vol] 10.1 fL Normal 6.4-10.8 [facility] Comment on above: Performed By: #### 2 409486 #### [facility] [address] [place] [address] Platelets (Bld) [#/Vol] 191.0 E9/L Normal 150.0-500.0 [facility] Comment on above: Performed By: #### 2 664026 #### [facility] [address] [place] [address] RBC (Bld) [#/Vol] 4.4 E12/L Normal 4.3-5.9 [facility] Comment on above: Performed By: #### 2 626741 #### [facility] [address] [place] [address] WBC corrected for nucl RBC Auto (Bld) [#/Vol] 9.8 E9/L Normal 4.0-11.0 [facility] Comment on above: Performed By: #### 2 143710 #### [facility] [address] [place] [address] Consenton 05-29-2020 Consent [id number]#1.00CD:1 27 Normal [facility] Consent for Procedure/Surger yon 05-29-2020 Consent for Procedure/Surgery [id number]#1.00CD:12 7 Normal [facility] Consent for Procedure/Surgery [id number]#1.00CD:12 7 Normal [facility] Consent for Treatmenton Consent for Treatment [id number]#1.00CD:1 27 Normal [facility] Consent for Treatment [id number]#1.00CD:1 27 Normal [facility] Delivery Summaryon 0 Delivery Summary Patient: MÓNICA [...] Stable. Maternal condition: Stable. Ludivina Gardner MD [facility] Comment on above: Result Comment: Elec tronically Signed By: Ludivina GARDNER MD\.br\Date and Time Signed: 05/29/20 17:01 EST Discharge Instructionson Discharge Instructions [id number]#1.00CD:12 7 [facility] Help Me Grow Referralon Help Me Grow Referral [id number]#1.00CD:12 7 [facility] Progress Note-Physicianon Progress Note-Physician Patient: FEMI KRAMER [...] Daily, 90 tab(s), Refill(s) 4, ANY VITAMIN, [facility], 163, cm, 11/07/19 8:38:00 EDT, Height/Length Measured, 71.9, kg, 11/07/19 8:38:00 EDT, Weight Measured valacyclovir 500 mg Tab: 500 mg = 1 tab(s), Oral, q12hr, # 30 tab(s), Refills(s) 1, Pharmacy: [facility], 163, cm, 04/25/20 11:47:00 EST, Height/Length Dosing, 78.1, kg, 04/25/20 11:47:00 EST, Weight Dosing Problem list: All Problems Supervision of normal in third trimester / SNOMED CT 977058040 / Confirmed Depression during , antepartum / SNOMED CT 4303970224 / Confirmed Genital herpes simplex virus (HSV) infection in mother affecting / SNOMED CT 8843320601 / Confirmed / SNOMED CT 087473350 / Confirmed Resolved: / SNOMED CT 912439972 Canceled: Supervision of normal in second trimester / SNOMED CT 930708458 Histories Past Medical History: Resolved ([id number]): Onset on 07/27/2016 at 20 years. Resolved on 04/12/2017 at 21 years. Family History: Hypertension Grandparent Diabetes mellitus type 1 Grandparent Procedure history: Tonsillectomy (066717264). 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 Physical Examination Vital Signs (last 24 hrs) Last Charted Temp Oral 36.6 DegC (MAY 29 07:30) SBP 133 mmHg (MAY 29 07:30) DBP 82 mmHg (MAY 29 07:30) Weight 76.6 kg (MAY 29 07:40) Height 1 (more content not included)... Normal [facility] Comment on above: Result Comment: Elec tronically [...] INTRAVASCULAR OR INTRATHECAL INJECTION, THEN AN EPIDURAL JOURNAL ENTRY AUDIT CLERK WAS INITIATED AND MAINTAINED AT 10 ML/HR. INFUSION TO BE DISCONTINUED AT THE JOURNAL ENTRY AUDIT CLERK'S REQUEST.. Procedure tolerated: well. Complications: NO APPARENT COMPLICATIONS AT THE END OF THE PROCEDURE. 12S/ 5S Impression and Plan Normal [facility] Comment on above: Result Comment: Elec tronically Signed By: Hernando Matos JR, DO\.br\Date and Time Signed: 05/29/20 10:56 EST UA With Cult Reflexon 2019 Bacteria LM Ql (Urine sed) TRACE Normal Trace [facility] Comment on above: Order Comment: Urina ry Catheter Insertion triggered Urinalysis With Culture Reflex order by discern. Performed By: #### 1 [id number] ####[facility] [address] [place] [address] Bilirubin Ql (U) Negative Normal Negative [facility] Comment on above: Order Comment: Urina ry Catheter Insertion triggered Urinalysis With Culture Reflex order by discern. Performed By: #### 1 [id number] ####[address] [address] Clarity (U) CLEAR Normal Clear [facility] Comment on above: Order Comment: Urina ry Catheter Insertion triggered Urinalysis With Culture Reflex order by discern. Performed By: #### 1 [id number] ####[address] [address] Color (U) YELLOW Normal Yellow [facility] Comment on above: Order Comment: Urina ry Catheter Insertion triggered Urinalysis With Culture Reflex order by discern. Performed By: #### 1 9393382 ####[address] [address] Epithelial cells.squamous LM.HPF (Urine sed) [#/Area] 0-2 Normal 0-2 [facility] Comment on above: Order Comment: Urina ry Catheter Insertion triggered Urinalysis With Culture Reflex order by discern. Performed By: #### 1 [id number] ####[address] [address] Glucose Test strip (U) [Mass/Vol] Negative Normal Negative [facility] Comment on above: Order Comment: Urina ry Catheter Insertion triggered Urinalysis With Culture Reflex order by discern. Performed By: #### 1 0965613 ####[address] [address] Hemoglobin Ql (U) TRACE Abnormal Negative [facility] Comment on above: Order Comment: Urina ry Catheter Insertion triggered Urinalysis With Culture Reflex order by discern. Performed By: #### 1 4383712 ####[address] [address] Ketones (U) [Mass/Vol] Negative Normal Negative [facility] Comment on above: Order Comment: Urina ry Catheter Insertion triggered Urinalysis With Culture Reflex order by discern. Performed By: #### 1 5911542 ####[facility] [address] [place] [address] [place].plasma/Lith ium.RBC (Bld) [Mass ratio] 0-3 Normal 0-3 [facility] Comment on above: Order Comment: Urina ry Catheter Insertion triggered Urinalysis With Culture Reflex order by discern. Performed By: #### 1 [id number] ####[address] [address] Nitrite Ql (U) Negative Normal Negative [facility] Comment on above: Order Comment: Urina ry Catheter Insertion triggered Urinalysis With Culture Reflex order by discern. Performed By: #### 1 [id number] ####[address] [address] pH (U) 7.0 [pH] Invalid Interpretation Code 5.0-9.0 [facility] Comment on above: Order Comment: Urina ry Catheter Insertion triggered Urinalysis With Culture Reflex order by discern. Performed By: #### 1 0714588 ####[address] [address] Protein (U) [Mass/Vol] Negative Normal Negative [facility] Comment on above: Order Comment: Urina ry Catheter Insertion triggered Urinalysis With Culture Reflex order by discern. Performed By: #### 1 [id number] ####[address] [address] Specific gravity (U) [Rel density] 1.015 Invalid Interpretation Code 1.005-1.030 [facility] Comment on above: Order Comment: Urina ry Catheter Insertion triggered Urinalysis With Culture Reflex order by discern. Performed By: #### 1 [id number] ####[address] [address] UA Spec Desc Romero Normal [facility] Comment on above: Order Comment: Urina ry Catheter Insertion triggered Urinalysis With Culture Reflex order by discern. Performed By: #### 1 [id number] ####[address] [address] Urobilinogen Qn (U) 0.2 {Damien'U}/dL Normal 0.0-1.0 [facility] Comment on above: Order Comment: Urina ry Catheter Insertion triggered Urinalysis With Culture Reflex order by discern. Performed By: #### 1 [id number] ####[facility] [address] [place] [address] WBC Auto Ql (U) Negative Normal Negative [facility] Comment on above: Order Comment: Urina ry Catheter Insertion triggered Urinalysis With Culture Reflex order by discern. Performed By: #### 1 [id number] ####[facility] [address] [place] [address] WBC LM.HPF (Urine sed) [#/Area] 0-5 Normal 0-5 [facility] Comment on above: Order Comment: Urina ry Catheter Insertion triggered Urinalysis With Culture Reflex order by discern. Performed By: #### 1 [id number] ####[facility] [address] [place] [address] Vaccinationson 05-29-2020 Vaccinations [id number]#1.00CD:1 27 Normal [facility] Vaccinations [id number]#1.00CD:1 27 Normal [facility] Coding Summary.on 05-25-2020 Coding Summary. CODING DATE: 020 FINAL [facility] STATUS: Home (Routine DC) PAYOR: [...] Shakila Peter Date Saved: 05/25/2020 05:57 am [facility] Consent for Procedure/Surger yon 05-22-2020 Consent for Procedure/Surgery [id number]#1.00CD:1 27 [facility] Formson 05-22-2020 Forms [id number]#1.00CD:1 27 [facility] Ambulatory Clinical Summaryo n 05-21-2020 Ambulatory Clinical Summary {[id number] D:[id number] Normal [facility] Obstetrics Office/Clinic Not john 05-21-2020 Obstetrics Office/Clinic Note Chief Complaint OB 37w 6d, baby moving, ROJAS and nausea increase hip and back pain Obstetric History History (0,0,0,1) # 1 Baby 1 Outcome Date: 04/12/2017 Outcome: Live Outcome or Result: Vaginal Gender: Female Gest Age: 37 weeks Wt: 3033 g Hospital: [facility] Labor: -- Child's Name: -- Baby's Father: [...] 05/29 @ 0700. BPP today for decr FM General Exam: Constitutional: alert, no acute distress, [...] 05/29 @ 0700. BPP today due to decr . 1. Supervision of normal in third trimester (Z34.93: Encounter for supervision of normal , unspecified, third trimester) Ordered: Office Visit Level 4 Est 14794 TH US Biophysical Profile w/o N-Str 2. Genital herpes simplex virus (HSV) infection in mother affecting (O98.319: Other infections with a predominantly sexual mode of transmission complicating , unspecified trimester) Ordered: Office Visit Level 4 Est 81705 TH US Biophysical Profile w/o N-Str 3. Depression during , antepartum (O99.340: Other mental disorders complicating , unspecified trimester) Ordered: Office Visit Level 4 Est 51667 TH US Biophysical Profile w/o N-Str 4. 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 Never Smokeless Tobacco Use:., 05/13/2020 Family History Diabetes mellitus type 1: Grandparent. Hypertension: Grandparent. Lab Results Ambulatory Point of Care Results Glucose Urine Dipstick: Negative (05/21/20 09:40:00) Protein Urine Dipstick: Negative (05/21/20 09:40:00) Normal [facility] Comment on above: Result Comment: Elec tronically Signed By: TAWANDA SARMIENTO, Ludivina Kat.portillo\Date and Time Signed: 05/21/20 10:57 EST Patient Educationon 05-21-20 20 Patient Education Score The score is [...] 09/13/2008 Document Revised: 03/01/2013 Document Reviewed: 09/13/2008 [facility]? [facility] Information [facility] Medicine Score The score is a number [...] Document Reviewed: 09/13/2008 [employer]? Patient Information ?2013 [employer] Biophysical Profile w/o N-Stron 05-21-2020 US Biophysical [...] Total Score out of 8 8 Normal [facility] Ambulatory Clinical Summaryo n 05-13-2020 Ambulatory Clinical Summary {[id number]}C D:[id number] Normal [facility] Obstetrics Office/Clinic Not john 05-13-2020 Obstetrics Office/Clinic Note Chief Complaint OB 36w 5d, baby moving, had cramping and sharp pain down through vagina, GBS done last visit Obstetric History History (0,0,0,1) # 1 Baby 1 Outcome Date: 04/12/2017 Outcome: Live Outcome or Result: Vaginal Gender: Female Gest Age: 37 weeks Wt: 3033 g Hospital: [facility] Labor: -- Child's Name: -- Baby's Father: [...] trimester) Ordered: Office Visit Level 4 Est 74808 TH 2. Genital herpes simplex virus (HSV) infection in mother affecting (O98.319: Other infections with a predominantly sexual mode of transmission complicating , unspecified trimester) Ordered: Office Visit Level 4 Est 00652 3. Depression during , antepartum (O99.340: Other mental disorders complicating , unspecified trimester) Ordered: Office Visit Level 4 Est 46078 TH 4. 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 Never Smokeless Tobacco Use:., 05/13/2020 Family History Diabetes mellitus type 1: Grandparent. Hypertension: Grandparent. Lab Results Ambulatory Point of Care Results Glucose Urine Dipstick: Negative (05/13/20 13:18:00) Protein Urine Dipstick: Negative (05/13/20 13:18:00) Normal [facility] Comment on above: Result Comment: Elec tronically Signed By: TAWANDA SARMIENTO, Ludivina Phillip\.br\Date and Time Signed: 05/13/20 13:59 EST Patient Educationon 05-13-20 20 Patient Education Family Medicine Score The score is a [...] Document Reviewed: 09/13/2008 ExitCare? Patient Information ?2013 [facility]. [facility] US Follow Upon US Follow Up Exam [...] Signed by: Ishaan Fonseca M.D. Transcribed by: [facility] Technologist: MIKEY Technical Comments LMP : 08/30/19 LETY 06/05/20 LETY Obtained LETY by LMP GA 36w0d History 2 Para 1 Transabdominal Ultrasound Performed Placenta Location posterior, fundal Placenta Grade 2 Amniotic Fluid Volume High Normal Normal [facility] Group B Strep by PCRon 05-09 Group B Strep by PCR Specimen Negative for Group B Streptococcus by DNA amplification. Normal Negative [facility] Comment on above: Performed By: #### S ARS-CoV-2, TASNEEM, [id number] #### [facility] Laboratory [address] [place] [address] Group B Strep colonization by PCR Negative Normal Negative [facility] Comment on above: Performed By: #### S ARS-CoV-2, TASNEEM, [id number] #### [facility] Laboratory [address] [place] [address] Ambulatory Clinical Summaryo n 05-08-2020 Ambulatory Clinical Summary {[id number]}C D:[id number] Normal [facility] Ambulatory Clinical Summary {[id number]}C D:[id number] Normal [facility] Obstetrics Office/Clinic Not john 05-08-2020 Obstetrics Office/Clinic Note Chief Complaint OB visit 36 weeks, headaches, [place], GBS today. Obstetric History History (0,0,0,1) # 1 Baby 1 Outcome Date: 04/12/2017 Outcome: Live Outcome or Result: Vaginal Gender: Female Gest Age: 37 weeks Wt: 3033 g Hospital: [facility] Labor: -- Child's Name: -- Baby's Father: [...] here for appt following growth US. Per nurse reviewer: FHR 125, SHANTELLE 19.9, EFW 66%, 6lbs [...] Stable. Ordered: Office Visit Level 3 Est 35938 2. Supervision of normal in third trimester (Z34.93: Encounter for supervision of normal , unspecified, third trimester) Follow up in [address] Gardner. Ordered: Group B Streptococcus colonization by PCR Office Visit Level 3 Est 33603 3. 36 weeks gestation of (Z3A.36: 36 weeks gestation of ) Ordered: Office Visit Level 3 Est 64070 4. Genital herpes simplex virus (HSV) infection in mother affecting (O98.319: Other infections with a predominantly sexual mode of transmission complicating , unspecified trimester) Start on antivirals. 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 Never Smokeless Tobacco Use:., 05/08/2020 Family History Diabetes mellitus type 1: Grandparent. Hypertension: Grandparent. Lab Results Ambulatory Point of Care Results Glucose Urine Dipstick: Negative (05/08/20 08:57:00) Protein Urine Dipstick: Negative (05/08/20 08:57:00) Normal [facility] Comment on above: Result Comment: Elec tronically [...] Document Reviewed: 11/23/2008 ExitCare? Patient Information ?2013 [facility]. [facility] Ambulatory Clinical Summaryo n 04-25-2020 Ambulatory Clinical Summary {[id number]}C D:[id number] Normal [facility] Obstetrics Office/Clinic Not john 04-25-2020 Obstetrics Office/Clinic Note Chief Complaint OB visit 34 weeks 1 day, Obstetric History History (0,0,0,1) # 1 Baby 1 Outcome Date: 04/12/2017 Outcome: Live Outcome or Result: Vaginal Gender: Female Gest Age: 37 weeks Wt: 3033 g Hospital: [facility] Labor: -- Child's Name: -- Baby's Father: [...] Stable. Ordered: Office Visit Level 3 Est 69580 TH 2. Supervision of normal in third trimester (Z34.93: Encounter for supervision of normal , unspecified, third trimester) Follow up in 2 weeks for appt and growth US. Ordered: Office Visit Level 3 Est 39220 TH Follow Up 3. 34 weeks gestation of (Z3A.34: 34 weeks gestation of ) Ordered: Office Visit Level 3 Est 45694 TH 4. Genital herpes simplex virus (HSV) infection in mother affecting (O98.319: Other infections with a predominantly sexual mode of transmission complicating , unspecified trimester) Plan to start antivirals @ 36 wks. 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 Never Smokeless Tobacco Use:., 04/25/2020 Family History Diabetes mellitus type 1: Grandparent. Hypertension: Grandparent. Lab Results Ambulatory Point of Care Results Glucose Urine Dipstick: Negative (04/25/20 12:04:51) Protein Urine Dipstick: Negative (04/25/20 12:04:51) Normal [facility] Comment on above: Result Comment: Elec tronically Signed By: Silvia MURDOCK\.br\Date and Time Signed: 04/25/20 12:07 EST Patient Educationon 04-25-20 20 Patient Education Family Medicine How a [...] Document Reviewed: 11/23/2008 ExitCare? Patient Information ?2013 [facility] Follow Upon US Follow Up Exam Date/Time: 04/11/2020 10:21 EDT [...] Vertex Amniotic Fluid Volume High Normal Normal [facility] Ambulatory Clinical Summaryo n 04-11-2020 Ambulatory Clinical Summary {[id number]}C D:[id number] Normal [facility] Obstetrics Office/Clinic Not john 04-11-2020 Obstetrics Office/Clinic Note Chief Complaint OB 32w 1d, baby moving, swelling fingers Obstetric History History (0,0,0,1) # 1 Baby 1 Outcome Date: 04/12/2017 Outcome: Live Outcome or Result: Vaginal Gender: Female Gest Age: 37 weeks Wt: 3033 g Hospital: [facility] Labor: -- Child's Name: -- Baby's Father: [...] trimester) Ordered: Office Visit Level 3 Est 91598 TH 2. Genital herpes simplex virus (HSV) infection in mother affecting (O98.319: Other infections with a predominantly sexual mode of transmission complicating , unspecified trimester) Ordered: Office Visit Level 3 Est 28186 TH 3. Depression during , antepartum (O99.340: Other mental disorders complicating , unspecified trimester) Ordered: Office Visit Level 3 Est 70458 TH 4. 32 weeks gestation of (Z3A.32: 32 weeks gestation of ) Ordered: Office Visit Level 3 Est 63800 TH Follow-up With When Contact Information TAWANDA SARMIENTO, Ludivina Phillip In [address] [place] [address]- Additional Instructions: Problem List/Past Medical History Ongoing Depression during , antepartum Genital herpes simplex virus (HSV) infection in mother affecting Supervision of normal in third trimester Historical Procedure/Surgical History Tonsillectomy. 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 Never Smokeless Tobacco Use:., 04/11/2020 Family History Diabetes mellitus type 1: Grandparent. Hypertension: Grandparent. Lab Results Ambulatory Point of Care Results Glucose Urine Dipstick: Negative (04/11/20 10:13:00) Protein Urine Dipstick: Negative (04/11/20 10:13:00) Normal [facility] Comment on above: Result Comment: Elec tronically Signed By: TAWANDA SARMIENTO, Ludivina Kat.portillo\Date and Time Signed: 04/11/20 10:48 EDT Patient Educationon 04-11-20 Patient Education Family Medicine How a Baby [...] Document Reviewed: 11/23/2008 ExitCare? Patient Information ?2013 [facility]. [facility] Ambulatory Clinical Summaryo n 03-28-2020 Ambulatory Clinical Summary {[id number]}C D:[id number] [facility] Obstetrics Office/Clinic Not john 03-28-2020 Obstetrics Office/Clinic Note Chief Complaint OB 30w 1d, baby moving, nausea Obstetric History History (0,0,0,1) # 1 Baby 1 Outcome Date: 04/12/2017 Outcome: Live Outcome or Result: Vaginal Gender: Female Gest Age: 37 weeks Wt: 3033 g Hospital: [facility] Labor: -- Child's Name: -- Baby's Father: [...] trimester) Ordered: Office Visit Level 3 Est 19270 2. Genital herpes simplex virus (HSV) infection in mother affecting (O98.319: Other infections with a predominantly sexual mode of transmission complicating , unspecified trimester) Needs suppression at 36 wks Ordered: Office Visit Level 3 Est 18765 3. Depression during , antepartum (O99.340: Other mental disorders complicating , unspecified trimester) Stable Ordered: Office Visit Level 3 Est 51455 4. 30 weeks gestation of (Z3A.30: 30 weeks gestation of ) Ordered: Office Visit Level 3 Est 12891 Follow-up With When Contact Information Ludivina GARDNER MD In [address] [place] [address]- Additional Instructions: Problem List/Past Medical History Ongoing Depression during , antepartum Genital herpes simplex virus (HSV) infection in mother affecting Supervision of normal in third trimester Historical Procedure/Surgical History Tonsillectomy. 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 Never Smokeless Tobacco Use:., 03/28/2020 Family History Diabetes mellitus type 1: Grandparent. Hypertension: Grandparent. Lab Results Ambulatory Point of Care Results Glucose Urine Dipstick: Negative (03/28/20 09:43:00) Protein Urine Dipstick: Negative (03/28/20 09:43:00) Normal [facility] Comment on above: Result Comment: Elec tronically Signed By: Ludivina GARDNER MD\.br\Date and Time Signed: 03/28/20 10:04 EDT Patient Educationon 03-28-20 Patient Education Family Medicine How a Baby [...] Document Reviewed: 11/23/2008 ExitCare? Patient Information ?2013 [facility]. [facility] Ambulatory Clinical Summaryo n 02-29-2020 Ambulatory Clinical Summary {[id number]}C D:[id number] [facility] Obstetrics Office/Clinic Not john 02-29-2020 Obstetrics Office/Clinic Note Chief Complaint OB 26w 1d, baby moving, nausea Obstetric History History (0,0,0,1) # 1 Baby 1 Outcome Date: 04/12/2017 Outcome: Live Outcome or Result: Vaginal Gender: Female Gest Age: 37 weeks Wt: 3033 g Hospital: [facility] Labor: -- Child's Name: -- Baby's Father: [...] trimester) Ordered: Office Visit Level 3 Est 34778 TH Follow Up 2. Genital herpes simplex virus (HSV) infection in mother affecting (O98.319: Other infections with a predominantly sexual mode of transmission complicating , unspecified trimester) Ordered: Office Visit Level 3 Est 03172 TH Follow Up 3. Depression during , antepartum (O99.340: Other mental disorders complicating , unspecified trimester) Ordered: Office Visit Level 3 Est 71992 TH Follow Up 4. 26 weeks gestation of (Z3A.26: 26 weeks gestation of ) Ordered: Office Visit Level 3 Est 77593 TH Follow Up Follow-up With When Contact Information Ludivina GARDNER MD In [address] [place] [address]- Additional Instructions: Problem List/Past Medical History Ongoing Depression during , antepartum Genital herpes simplex virus (HSV) infection in mother affecting Supervision of normal in second trimester Historical Procedure/Surgical History Tonsillectomy. 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 Never Smokeless Tobacco Use:., 02/29/2020 Family History Diabetes mellitus type 1: Grandparent. Hypertension: Grandparent. Lab Results Ambulatory Point of Care Results Glucose Urine Dipstick: Negative (02/29/20 09:41:00) Protein Urine Dipstick: Negative (02/29/20 09:41:00) Normal [facility] Comment on above: Result Comment: Elec tronically Signed By: TAWANDA SARMIENTO, Ludivina Kat.portillo\Date and Time Signed: 02/29/20 10:02 EDT Coding Summary.on 02-20-2020 Coding Summary. CODING DATE: 020 FINAL [facility] DSC STATUS: Home (Routine DC) PAYOR: Medicaid EAPG DESCRIPTION 0425 LEVEL I OTHER MISCELLANEOUS ANCILLARY [...] CphT Date Saved: 02/20/2020 03:43 pm Normal [facility] ABO/Rhon 02-19-2020 ABO/Rh Positive Invalid Interpretation Code [facility] Comment on above: Performed By: #### 1 [id number], [id number] ####[facility] [id number] [place] [address] ABSCon 02-19-2020 ABSC Gel Interp Negative Normal [facility] Comment on above: Performed By: #### 1 [id number], [id number] ####[facility] [id number] [place] [address] CBC w/Indiceson 02-19-2020 Erythrocyte distribution width (RBC) [Ratio] 13.5 % Normal 10.9-14.2 [facility] Comment on above: Performed By: #### 3 [id number], [id number] #### [facility] Laboratory [address] [place] [address] Hematocrit (Bld) [Volume fraction] 37.6 % Normal 34.0-46.0 [facility] Comment on above: Performed By: #### 3 [id number], [id number] #### [facility] [address] [place] [address] Hemoglobin (Bld) [Mass/Vol] 13.4 g/dL Normal 12.0-16.0 [facility] Comment on above: Performed By: #### 3 [id number], [id number] #### [facility] Laboratory [address] [place] [address] MCH (RBC) [Entitic mass] 33.2 pg Normal 27.0-34.0 [facility] Comment on above: Performed By: #### 3 [id number], [id number] #### [facility] [address] [place] [address] MCHC (RBC) [Mass/Vol] 35.7 g/dL Normal 31.4-36.0 [facility] Comment on above: Performed By: #### 3 [id number], [id number] #### [facility] [address] [place] [address] MCV (RBC) [Entitic vol] 92.8 fL Normal 80.0-100.0 [facility] Comment on above: Performed By: #### 3 [id number], [id number] #### [facility] [address] [place] [address] Platelet mean volume (Bld) [Entitic vol] 8.5 fL Normal 6.4-10.8 [facility] Comment on above: Performed By: #### 3 [id number], [id number] #### [facility] [address] [place] [address] Platelets (Bld) [#/Vol] 157.0 E9/L Normal 150.0-500.0 [facility] Comment on above: Performed By: #### 3 [id number], [id number] #### [facility] [address] [place] [address] RBC (Bld) [#/Vol] 4.0 E12/L Low 4.3-5.9 [facility] Comment on above: Performed By: #### 3 [id number], [id number] #### [facility] [address] [place] [address] WBC corrected for nucl RBC Auto (Bld) [#/Vol] 6.9 E9/L Normal 4.0-11.0 [facility] Comment on above: Performed By: #### 3 [id number], [id number] #### [facility] [address] [place] [address] Consent for Treatmenton 01-21 Consent for Treatment [id number]:12 7 Normal [facility] Gest Scr Glu 1 Hron 02-19-20 20 Glucose [Mass/Vol] 116 mg/dL Normal 55-140 [facility] Comment on above: Result Comment: Posi tive Screen =1 HR > 140mg/dL Performed By: #### 3 [id number], [id number] ####[facility] [id number] [place] [address] Ambulatory Clinical Summaryo n 02-01-2020 Ambulatory Clinical Summary {[id number] D:[id number] Normal [facility] Obstetrics Office/Clinic Not john 02-01-2020 Obstetrics Office/Clinic Note Chief Complaint OB 22w 1d, baby moving Obstetric History History (0,0,0,1) # 1 Baby 1 Outcome Date: 04/12/2017 Outcome: Live Outcome or Result: Vaginal Gender: Female Gest Age: 37 weeks Wt: 3033 g Hospital: [facility] Labor: -- Child's Name: -- Baby's Father: [...] trimester) Ordered: Office Visit Level 4 Est 00983 2. Genital herpes simplex virus (HSV) infection in mother affecting (O98.319: Other infections with a predominantly sexual mode of transmission complicating , unspecified trimester) Ordered: Office Visit Level 4 Est 20918 3. Depression during , antepartum (O99.340: Other mental disorders complicating , unspecified trimester) Ordered: Office Visit Level 4 Est 63833 4. 22 weeks gestation of (Z3A.22: 22 weeks gestation of ) Ordered: ABO/Rh Antibody Screen CBC w/ Indices Gestational Screen Glucose 1 Hour Office Visit Level 4 Est 52110 Follow-up With When Contact Information Ludivina GARDNER MD In [address] [place] [address]- Additional Instructions: Problem List/Past Medical History Ongoing Depression during , antepartum Genital herpes simplex virus (HSV) infection in mother affecting Supervision of normal in second trimester Historical Procedure/Surgical History Tonsillectomy. 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 Never Smokeless Tobacco Use:., 02/01/2020 Family History Diabetes mellitus type 1: Grandparent. Hypertension: Grandparent. Lab Results Ambulatory Point of Care Results Glucose Urine Dipstick: Negative (02/01/20 09:32:00) Protein Urine Dipstick: Negative (02/01/20 09:32:00) Normal [facility] Comment on above: Result Comment: Elec tronically Signed By: Ludivina GARDNER MD\.br\Date and Time Signed: 02/01/20 09:52 EDT Ambulatory Clinical Summaryo n 01-08-2020 Ambulatory Clinical Summary {[id number] D:[id number] Normal [facility] Obstetrics Office/Clinic Not john 01-08-2020 Obstetrics Office/Clinic [...] Age: 37 weeks Wt: 3033 g Hospital: [facility] Labor: -- Child's Name: -- Baby's Father: [...] trimester) Ordered: Office Visit Level 3 Est 47565 TH 2. Genital herpes simplex virus (HSV) infection in mother affecting (O98.319: Other infections with a predominantly sexual mode of transmission complicating , unspecified trimester) Ordered: Office Visit Level 3 Est 55366 TH 3. Depression during , antepartum (O99.340: Other mental disorders complicating , unspecified trimester) Ordered: Office Visit Level 3 Est 14412 TH 4. 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 Normal [facility] Comment on above: Result Comment: Elec tronically Signed By: TAWANDA SARMIENTO, Ludivina Phillip\.br\Date and Time Signed: 01/08/20 10:36 EDT US [...] Extremities Normal Diaphragm Normal ACI Normal Normal [facility] Ambulatory Clinical Summaryo n 01-03-2020 Ambulatory Clinical Summary {[id number] D:[id number] Normal [facility] Obstetrics Office/Clinic Not john 01-03-2020 Obstetrics Office/Clinic Note Chief Complaint OB visit 18 weeks, headaches less than last appointment, Obstetric History History (0,0,0,1) # 1 Baby 1 Outcome Date: 04/12/2017 Outcome: Live Outcome or Result: Vaginal Gender: Female Gest Age: 37 weeks Wt: 3033 g Hospital: [facility] Labor: -- Child's Name: -- Baby's Father: [...] here for visit following anatomy US. Per nurse reviewer: anatomy WNL, FHR 155, variable position, cx [...] Stable. Ordered: Office Visit Level 3 Est 99089 TH 2. Supervision of normal in second trimester (Z34.92: Encounter for supervision of normal , unspecified, second trimester) Recommend Magnesium 500mg daily for headaches. Let pt know her sequentil screen is complete and low risk. Discussed first OB lab results. Follow up in 4 weeks. Ordered: Office Visit Level 3 Est 92006 TH 3. 18 weeks gestation of (Z3A.18: 18 weeks gestation of ) Ordered: Office Visit Level 3 Est 52958 TH 4. 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 Ordered: Office Visit Level 3 Est 39563 TH Follow-up With When Contact Information [facility] In [address] [place] [address]- Additional Instructions: Problem List/Past Medical History Ongoing Depression during , antepartum Genital herpes simplex virus (HSV) infection in mother affecting Supervision of normal in second trimester Historical Procedure/Surgical History Tonsillectomy. 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 Never Smokeless Tobacco Use:., 01/03/2020 Family History Diabetes mellitus type 1: Grandparent. Hypertension: Grandparent. Lab Results Ambulatory Point of Care Results Glucose Urine Dipstick: Negative (01/03/20 08:52:00) Protein Urine Dipstick: Negative (01/03/20 08:52:00) Normal [facility] Comment on above: Result Comment: Elec tronically Signed By: Silvia MURDOCK\.portillo\Date and Time Signed: 01/03/20 09:17 EDT Sequential Screen, Second Tr michelle 01-01-2020 Sequential Screen 2 see below Normal [facility] Comment on above: Order Comment: (Send out facility name if possible): [facility] with accompanying paperwork. Result Comment: Screen negative - detailed report to follow Testing Performed: [facility] [address] [place] [address] Performed By: #### S EQ2 #### [facility] [address] [place] [address] Sequential Screen, First Tri mesteron 12-06-2019 Sequential Screen 1 see below Normal [facility] Comment on above: Order Comment: (Send out facility name if possible): [facility] with accompanying paperwork. Result Comment: Jeanie olguin Results pending second trimester sample - detailed report to follow Testing Performed: [facility] [address] [place] [address] Performed By: #### S EQ1 #### [facility] [address] [place] [address] Miscellaneous Lab Procedureo n 05-23-2017 [facility] LAB TEST Normal [facility] Comment on above: Order Comment: Test( s) [...] an image guided system.Performed by Deborah Arias Senior Technical Recruiter ([facility])The HPV DNA reflex criteria were not met with this specimenresult therefore, no HPV testing was performed. _ TESTING PERFORMED AT [facility]. ORIGINAL REPORT ON FILE IN LAB CONTAINS ADDITIONAL TEST SITE INFORMATION. ___ Performed By: #### L 801.1541 ####[facility] [address] [place], [address] Discharge Instructionon 03-22 Discharge Instruction [facility] [address] [place] [place], [place] [address]Kxhqcskyqmmt for Home/Discharge Mnineutzuesk59/24/17 2115#: [id number] Acct: [id number]: NIAFEMI R Rep #: [id number]: 1995 [facility] Status: ADM INDischarge Diet: No RestrictionsDischarge Activity: [...] seen in 2 weeks.04/13/172114 Date Aimee Castelan [facility]: Normal [facility] Operative Reporton 7 Operative Report [facility] [address] [place], [place] [address]Cdmzvekvn Qhimyq49/24/17 0031MR#: [id number] Acct: [id number]: FEMI KRAMER Rep #: [id number]: 1995 21 From: Aimee Castelan MDPCP: Status: ADM IN ocation: WP [id number] DeliveryMaternal Presentation: Active Labor, Spontaneous Rupture of Xmhrzsblt41 yo @ 37w1d presents IAL SROM clear [...] IV PitocinComplications: None04/13/[address] [facility]: Aimee Castelan MD Signed Normal [facility] (ROM) Rupture Of Membraneson 04-12-2017 ROM Positive High Negative [facility] Comment on above: Result Comment: Amni otic fluid present indicates rupture of Membranes.RESULTS CALLED TO [facility] 04/12/17 3638 Brittni Sandoval.REPORT READ BACK BY SAME . Performed By: #### L 205.1000 ####[facility] [address] [place], [address] CBC-Complete Blood Cnt No Di ffon 04-12-2017 Erythrocyte distribution width Auto Ratio (RBC) 12.3 % Normal 11.6-14.6 [facility] Comment on above: Performed By: #### L 100.0500 ####[facility] [address] [place], [address] Erythrocytes (RBC) 4.56 M/mm3 Normal 4.2-5.4 [facility] Comment on above: Performed By: #### L 100.0500 ####[facility] [address] [place], [address] Hematocrit (HCT) 40.0 % Normal 37-47 [facility] Comment on above: Performed By: #### L 100.0500 ####[facility] [address] [place], [address] Hemoglobin mass conc (Bld) 13.8 g/dL Normal 12.0-15.0 [facility] Comment on above: Performed By: #### L 100.0500 ####[facility] [address] [place], [address] MCH 30.3 pg Normal 27.0-32.0 [facility] Comment on above: Performed By: #### L 100.0500 ####[facility] [address] [place], [address] MCHC mass conc (RBC) 34.5 g/gl Normal 32-36 [facility] Comment on above: Performed By: #### L 100.0500 ####[facility] [address] [place], [address] MCV 87.7 fL Normal 81-99 [facility] Comment on above: Performed By: #### L 100.0500 ####[facility] [address] [place], [address] Platelet mean volume (PMV) 11.4 fL Normal 6.2-12.0 [facility] Comment on above: Performed By: #### L 100.0500 ####[facility] [address] [place], [address] Platelets 201 10*3/uL Normal 150-450 [facility] Comment on above: Performed By: #### L 100.0500 ####[facility] [address] [place], [address] RDW SD 38.7 fl Normal 35.1-43.9 [facility] Comment on above: Performed By: #### L 100.0500 ####[facility] [address] [place], [address] WBC (Leukocytes) 11.6 10*3/uL High 4.4-11.0 [facility] Comment on above: Performed By: #### L 100.0500 ####[facility] [address] [place], [address] History and Physical Examon 04-12-2017 History and Physical Exam [facility] [address] [address]Eszclwc and Kpzoabfc30/23/17 1732#: [id number] Acct: [id number]: FEMI KRAMER Rep #: [id number]: 1995 21 [facility]: Status: ADM IN YLocation: WP [id number] and PhysicalDate of Admission: 04/12/17History of Present [...] support.Cervix:normal, no motion tenderness and no lesions. 460/-1 clear fluidUterus:gravid, size c/w dates, softened, anteverted, anteflexed, mobile and non-tender.Adnexa:normal, no masses, mobile and nontender.Rectum:normal and no masses.fhts 130s moderate variability reactive no decels. toco q 2-3 minutesA/P:21 yo @ 37w1d IAL srom clear fluidadmit IAL routine care gbs negative epi PRN1 [address] [facility] Signature (if applicable): Date CC: Aimee Castelan MD Signed [facility] Type AND Screenon 04-12-2017 Antibody Screen Negative [facility] Comment on above: Order Comment: Reaso n for Type AND Screen/Red Cells: ROUTINE Performed By: #### B 101.7450 ####[facility] [address] [place], [place], [address] BLOOD TYPE GEL Positive [facility] Comment on above: Order Comment: Reaso n for Type AND Screen/Red Cells: ROUTINE Performed By: #### B 101.7450 ####[facility] [address] [place], [place], [address] Culture, Group B Streptococc uson 04-08-2017 CUGRB STEPHANY Culture Group B Beta Streptococcus is not isolated. [facility] Comment on above: Performed By: #### M 100.1800 ####[facility] [address] [place], [place], [address] Group B Strep DNA By PCRon 1 GBS TEST RESULT Negative Normal Negative [facility] Comment on above: Order Comment: NO CO LLECTION INFORMATION GIVENSource: Vaginal Performed By: #### L 8200.0000 ####[facility] [address] [place], [address] CBC with Diffon 12-16-2016 Basophils Auto #/vol (Bld) 0.0 K/mcL Normal 0-0.2 [facility] Comment on above: Performed By: #### C BCBOB, KRISTINET, GHASSAN ####Unless otherwise noted, all testing performed by [place] [phone]: [id number] Director: Jr Alcantara M.D. Basophils/100 WBC Auto (Bld) 0.2 % Normal [facility] Comment on above: Performed By: #### C BCKRISTINE ROJAST, GHASSAN ####Unless otherwise noted, all testing performed by [place] [phone]: [id number] Director: Jr Alcantara M.D. Eosinophils 0.0 K/mcL Normal 0-0.5 [facility] Comment on above: Performed By: #### C KUSH ALMARAZ, GHASSAN ####Unless otherwise noted, all testing performed by [address] [phone]: [id number] Director: Jr Alcantara M.D. Eosinophils/100 leukocytes 0.0 % Normal [facility] Comment on above: Performed By: #### C BCKUSH ROJAS, GHASSAN ####Unless otherwise noted, all testing performed by [address] [phone]: [id number] Director: Jr Alcantara M.D. Erythrocyte distribution width Auto Ratio (RBC) 13.4 % Normal 10-14.4 [facility] Comment on above: Performed By: #### C BCDIF, [place], [place] ####Unless otherwise noted, all testing performed by [address] [phone]: [id number] Director: Jr Alcantara M.D. Erythrocytes (RBC) 4.23 M/mcL Normal 3.7-5.0 [facility] Comment on above: Performed By: #### C BCDIF, [place], [place] ####Unless otherwise noted, all testing performed by [address] [phone]: [id number] Director: Jr Alcantara M.D. Hematocrit (HCT) 37.7 % Normal 34.4-44.8 [facility] Comment on above: Performed By: #### C BCDIF, [place], [place] ####Unless otherwise noted, all testing performed by [address] [phone]: [id number] Director: Jr Alcantara M.D. Hemoglobin mass conc (Bld) 13.4 g/dL Normal 11.6-15.4 [facility] Comment on above: Performed By: #### C BCDIF, [place], [place] ####Unless otherwise noted, all testing performed by [address] [phone]: [id number] Director: Jr Alcantara M.D. Lymphocytes 0.8 K/mcL Low 1.0-3.7 [facility] Comment on above: Performed By: #### C BCDIF, [place], [place] ####Unless otherwise noted, all testing performed by [address] [phone]: [id number] Director: Jr Alcantara M.D. Lymphocytes/100 leukocytes 16.3 % Normal [facility] Comment on above: Performed By: #### C BCANDREWF, [place], [place] ####Unless otherwise noted, all testing performed by [address] [phone]: [id number] Director: Jr Alcantara M.D. MCH 31.6 pg Normal 27.9-33.9 [facility] Comment on above: Performed By: #### C BCDIF, [place], [place] ####Unless otherwise noted, all testing performed by [address] [phone]: [id number] Director: Jr Alcantara M.D. MCHC mass conc (RBC) 35.5 g/dL High 33.1-35.1 [facility] Comment on above: Performed By: #### C BCBOB, [place], [place] ####Unless otherwise noted, all testing performed by [address] [phone]: [id number] Director: Jr Alcantara M.D. MCV 89.1 fL Normal 82.6-98.9 [facility] Comment on above: Performed By: #### C BCDIF, [place], [place] ####Unless otherwise noted, all testing performed by [address] [phone]: [id number] Director: Jr Alcantara M.D. Monocytes 0.3 K/mcL Normal 0.1-0.6 [facility] Comment on above: Performed By: #### C BCDIF, [place], [place] ####Unless otherwise noted, all testing performed by [address] [place], [place] [phone]: [id number] Director: Jr Alcantara M.D. Monocytes/100 leukocytes 5.4 % Normal [facility] Comment on above: Performed By: #### C BCDIF, [place], [place] ####Unless otherwise noted, all testing performed by [address] [phone]: [id number] Director: Jr Alcantara M.D. Neutrophils 4.0 K/mcL Normal 1.2-6.9 [facility] Comment on above: Performed By: #### C BCDIF, [place], [place] ####Unless otherwise noted, all testing performed by [address] [phone]: [id number] Director: Jr Alcantara M.D. Platelet mean volume (PMV) 8.3 fL Normal 7.0-10.6 [facility] Comment on above: Performed By: #### C BCDIF, [place], [place] ####Unless otherwise noted, all testing performed by [address] [phone]: [id number] Director: Jr Alcantara M.D. Platelets 120 K/mcL Low 162-402 [facility] Comment on above: Performed By: #### C BCDIF, [place], [place] ####Unless otherwise noted, all testing performed by [address] [phone]: [id number] Director: Jr Alcantara M.D. Segmented Neut % 78.1 % Normal [facility] Comment on above: Performed By: #### C BCDIF, [place], [place] ####Unless otherwise noted, all testing performed by [address] [phone]: [id number] Director: Jr Alcantara M.D. WBC (Leukocytes) 5.1 K/mcL Normal 3.4-10.6 [facility] Comment on above: Performed By: #### C BCDIF, [place], [place] ####Unless otherwise noted, all testing performed by [address] [phone]: [id number] Director: Jr Alcantara M.D. [facility] 12-16-2016 Alanine aminotransferase (ALT) 62 U/L Normal 14-65 [facility] Comment on above: Performed By: #### C BCDIF, [place], [place] ####Unless otherwise noted, all testing performed by [address] [phone]: [id number] Director: Jr Alcantara M.D. Albumin 3.5 g/dL Normal 3.2-5.2 [facility] Comment on above: Performed By: #### C BCDIF, [place], [place] ####Unless otherwise noted, all testing performed by [address] [phone]: [id number] Director: Jr Alcantara M.D. Alkaline phosphatase (ALP) 72 U/L Normal 40-140 [facility] Comment on above: Performed By: #### C BCDIF, [place], [place] ####Unless otherwise noted, all testing performed by [address] [phone]: [id number] Director: Jr Alcantara M.D. Aspartate aminotransferase (AST) 51 U/L High 0-45 [facility] Comment on above: Performed By: #### C BCDIF, [place], [place] ####Unless otherwise noted, all testing performed by [place] [phone]: [id number] Director: Jr Alcantara M.D. Bilirubin (total) 0.6 mg/dL Normal 0.3-1.2 [facility] Comment on above: Performed By: #### C BCDIF, [place], [place] ####Unless otherwise noted, all testing performed by [place] [phone]: [id number] Director: Jr Alcantara M.D. Calcium 8.7 mg/dL Normal 8.4-10.2 [facility] Comment on above: Performed By: #### C BCDIF, [place], [place] ####Unless otherwise noted, all testing performed by [place] [phone]: [id number] Director: Jr Alcantara M.D. Chloride 102 mmol/L Normal 98-108 [facility] Comment on above: Performed By: #### C BCDIF, [place], [place] ####Unless otherwise noted, all testing performed by [place] [phone]: [id number] Director: Jr Alcantara M.D. CO2 25 mmol/L Normal 21-32 [facility] Comment on above: Performed By: #### C BCDIF, [place], [place] ####Unless otherwise noted, all testing performed by [place] [phone]: [id number] Director: Jr Alcantara M.D. Creatinine 0.52 mg/dL Normal 0.50-1.00 [facility] Comment on above: Performed By: #### C BCDIF, [place], [place] ####Unless otherwise noted, all testing performed by [address] [phone]: [id number] Director: Jr Alcantara M.D. eGFR (black) mL/min/{1.73_m2} Normal [facility] Comment on above: Result Comment: Afri can Palauan GFR Calc Performed By: #### C KUSH ALMARAZ, GHASSAN ####Unless otherwise noted, all testing performed by [address] [phone]: [id number] Director: Jr Alcantara M.D. eGFR (non-black) mL/min/{1.73_m2} Normal [facility] Comment on above: Result Comment: Non- GFR CalceGFR is an estimated Glomerular Filtration Rate based on the valueof the patient's serum creatinine. In outpatients, eGFR should be usedas a helpful tool in screening for CKD. In inpatients or patients withacute renal failure, eGFR represents the GFR at the moment of the drawand should be used with caution. Performed By: #### C BCDIF, [place], [place] ####Unless otherwise noted, all testing performed by [address] [phone]: [id number] Director: Jr Alcantara M.D. Glucose mass conc 94 mg/dL Normal 65-99 [facility] Comment on above: Performed By: #### C BCDIF, [place], [place] ####Unless otherwise noted, all testing performed by [address], [place] [phone]: [id number] Director: Jr Alcantara M.D. Potassium molar conc 3.2 mmol/L Low 3.5-5.1 [facility] Comment on above: Performed By: #### C BCDIF, [place], [place] ####Unless otherwise noted, all testing performed by [address] [phone]: [id number] Director: Jr Alcantara M.D. Protein 7.1 g/dL Normal 6.0-8.0 [facility] Comment on above: Performed By: #### C BCDIF, [place], [place] ####Unless otherwise noted, all testing performed by [address] [phone]: [id number] Director: Jr Alcantara M.D. Sodium 136 mmol/L Normal 135-145 [facility] Comment on above: Performed By: #### C BCDIF, [place], [place] ####Unless otherwise noted, all testing performed by [address] [phone]: [id number] Director: Jr Alcantara M.D. Urea nitrogen 4 mg/dL Low 8-25 [facility] Comment on above: Performed By: #### C BCDIF, [place], [place] ####Unless otherwise noted, all testing performed by [address] [phone]: [id number] Director: Jr Alcantara M.D. Culture, Bloodon 12-16-2016 Culture, Blood Test Name: Culture, Blood Culture Status: Final Culture Report: No Growth - Day 5 Micro Source: .... Normal [facility] Comment on above: Performed By: #### B C ####Unless otherwise noted, all testing performed by [address] [phone]: [id number] Director: Jr Alcantara M.D. Culture, Blood Test Name: Culture, Blood Culture Status: Final Culture Report: No Growth - Day 5 Micro Source: .... Normal [facility] Comment on above: Performed By: #### B C ####Unless otherwise noted, all testing performed by [address] [phone]: [id number] Director: Jr Alcantara M.D. Culture, Urineon 12-16-2016 Culture, Urine Test Name: Culture, Urine Culture Status: Final Culture Report: No significant growth. Micro Source: .... Normal [facility] Comment on above: Performed By: #### U RCUL ####Unless otherwise noted, all testing performed by [address] [phone]: [id number] Director: Jr Alcantara M.D. Lactic Acidon 12-16-2016 Lactate 0.7 mmol/L Normal 0.6-2.0 [facility] Comment on above: Performed By: #### C BCDIF, [place], [place] ####Unless otherwise noted, all testing performed by [address] [phone]: [id number] Director: Jr Alcantara M.D. Urine with Indicated Culture on 12-16-2016 Bilirubin,Urine Small Abnormal NEG;NEGATIV E [facility] Comment on above: Performed By: #### U IC ####Unless otherwise noted, all testing performed by [address] [phone]: [id number] Director: Jr Alcantara M.D. Blood,Urine Negative Normal NEG;NEGATIV E [facility] Comment on above: Performed By: #### U IC ####Unless otherwise noted, all testing performed by [address] [phone]: [id number] Director: Jr Alcantara M.D. Ketone,Urine >= 160 Normal [facility] Comment on above: Performed By: #### U IC ####Unless otherwise noted, all testing performed by [address] [phone]: [id number] Director: Jr Alcantara M.D. Leuk.Esterase,Urine Trace Abnormal Negative [facility] Comment on above: Performed By: #### U IC ####Unless otherwise noted, all testing performed by [address] [phone]: [id number] Director: Jr Alcantara M.D. Mucus, Urine Moderate Abnormal None Seen [facility] Comment on above: Performed By: #### U IC ####Unless otherwise noted, all testing performed by [address] [phone]: [id number] Director: Jr Alcantara M.D. Nitrite,Urine Negative Normal NEG;NEGATIV E [facility] Comment on above: Performed By: #### U IC ####Unless otherwise noted, all testing performed by [address] [phone]: [id number] Director: Jr Alcantara M.D. Protein,Urine Trace Abnormal NEGATIVE;NE G [facility] Comment on above: Performed By: #### U IC ####Unless otherwise noted, all testing performed by [address] [phone]: [id number] Director: Jr Alcantara M.D. Specific [place],Urine 1.020 Normal 1.003-1.029 [facility] Comment on above: Performed By: #### U IC ####Unless otherwise noted, all testing performed by [address] [phone]: [id number] Director: Jr Alcantara M.D. Squamous Epithelial 5-10 Abnormal 0-3+;NS [facility] Comment on above: Performed By: #### U IC ####Unless otherwise noted, all testing performed by [address] [phone]: [id number] Director: Jr Alcantara M.D. Urine, bacteria in sediment Rare Normal NS;RARE [facility] Comment on above: Performed By: #### U IC ####Unless otherwise noted, all testing performed by [address] [phone]: [id number] Director: Jr Alcantara M.D. Urine, character Clear Normal [facility] Comment on above: Performed By: #### U IC ####Unless otherwise noted, all testing performed by [address] [phone]: [id number] Director: Jr Alcantara M.D. Urine, color Yellow Normal [facility] Comment on above: Performed By: #### U IC ####Unless otherwise noted, all testing performed by [address] [phone]: [id number] Director: Jr Alcantara M.D. Urine, glucose presence Negative Normal NEG;NEGATIV E [facility] Comment on above: Performed By: #### U IC ####Unless otherwise noted, all testing performed by [address] [phone]: [id number] Director: Jr Alcantara M.D. Urine, leukocytes in sedmiment 5-10 Abnormal 0-3+;3-5+;N S [facility] Comment on above: Performed By: #### U IC ####Unless otherwise noted, all testing performed by [address] [phone]: [id number] Director: Jr Alcantara M.D. Urine, pH 7.0 [pH] Normal 4.5-8.0 [facility] Comment on above: Performed By: #### U IC ####Unless otherwise noted, all testing performed by [address] [phone]: [id number] Director: Jr Alcantara M.D. Urobilinogen,Urine 1.0 EU/dL High 0.2 [facility] Comment on above: Performed By: #### U IC ####Unless otherwise noted, all testing performed by [address] [phone]: [id number] Director: Jr Alcantara M.D. Vital Signs Date Time Vital Sign Value Performing Clinician [facility] 12-13-2024 20:18-0400 SaO2% (BldA) [Mass fraction] 99 % Mauricio Funes MD Work Phone: [facility] [employer] 12-13-2024 20:13-0400 Heart rate 90 /min [facility]icio [facility]unes MD [facility] 12-13-2024 20:13-0400 Respiratory rate 18 /min Mauricio Funes MD [facility] [employer] 12-13-2024 20:11-0400 Body temperature 98.29 [degF] Mauricio Funes MD Work [facility] 12-13-2024 20:11-0400 Diastolic blood pressure 71 mm[Hg] Mauricio Funes MD Work [facility] 12-13-2024 20:11-0400 Systolic blood pressure 125 mm[Hg] Mauricio Funes MD Work Phone: [facility] 12-13-2024 17:37-0400 Body height 162.6 cm Mauricio Funes MD Work Phone: [facility] [employer] 12-13-2024 17:37-0400 Body mass index (BMI) [Ratio] 21.63 kg/m2 Mauricio Funes MD Work Phone: [facility] 12-13-2024 17:37-0400 Body weight 57.15 kg Mauricio Funes MD Work Phone: [facility] 12-13-2024 14:39-0400 Body mass index (BMI) [Ratio] 21.63 kg/m2 Ellis Maryana DO Work Phone: [facility] 12-13-2024 14:39-0400 Body weight 57.15 kg Ellis Maryana DO Work Phone: [facility] 12-13-2024 14:39-0400 Diastolic blood pressure 62 mm[Hg] Ellis Maryana DO Work Phone: [facility] 12-13-2024 14:39-0400 Systolic blood pressure 112 mm[Hg] Ellis Maryana DO Work Phone: [facility] 11-13-2024 12:36-0400 Body height 162.6 cm Deysi Louise MD Work Phone: [facility] [employer] 11-13-2024 12:36-0400 Body mass index (BMI) [Ratio] 22.31 kg/m2 Deysi Louise MD Work Phone: [facility] [employer] 11-13-2024 12:36-0400 Body temperature 98.8 [degF] Deysi Louise MD Work Phone: [facility] [employer] 11-13-2024 12:36-0400 Body weight 58.97 kg Deysi Louise MD Work Phone: [facility] [employer] 11-13-2024 12:36-0400 Diastolic blood pressure 62 mm[Hg] Deysi Louise MD Work Phone: [facility] [employer] 11-13-2024 12:36-0400 Heart rate 88 /min Deysi Louise MD Work Phone: [facility] [employer] 11-13-2024 12:36-0400 Respiratory rate 18 /min Deysi Louise MD Work Phone: [facility] [employer] 11-13-2024 12:36-0400 SaO2% (BldA) [Mass fraction] 98 % Deysi Louise MD Work Phone: [facility] [employer] 11-13-2024 12:36-0400 Systolic blood pressure 120 mm[Hg] Deysi Louise MD Work Phone: [facility] [employer] 11-08-2024 14:07-0400 Body height 162.6 cm Ellis Maryana DO Work Phone: [facility] 11-08-2024 14:07-0400 Body mass index (BMI) [Ratio] 23 kg/m2 Ellis Maryana DO Work Phone: [facility] 11-08-2024 14:07-0400 Body weight 60.78 kg Ellis Maryana DO Work Phone: [facility] 11-08-2024 14:07-0400 Diastolic blood pressure 64 mm[Hg] Ellis Maryana DO Work Phone: [facility] 11-08-2024 14:07-0400 Systolic blood pressure 110 mm[Hg] Ellis Maryana DO Work Phone: [facility] 10-31-2024 13:33-0400 Body mass index (BMI) [Ratio] 22.83 kg/m2 Ellis Maryana DO Work Phone: [facility] 10-31-2024 13:33-0400 Body weight 60.33 kg Ellis Maryana DO Work Phone: [facility] 10-31-2024 13:33-0400 Diastolic blood pressure 68 mm[Hg] Ellis Maryana DO Work Phone: [facility] 10-31-2024 13:33-0400 Systolic blood pressure 118 mm[Hg] Ellis Maryana DO Work Phone: [facility] 10-17-2024 09:03-0400 Body mass index (BMI) [Ratio] 22.49 kg/m2 Ellis Maryana DO Work Phone: [facility] 10-17-2024 09:03-0400 Body weight 59.42 kg Ellis Maryana DO Work Phone: [facility] 10-17-2024 09:03-0400 Diastolic blood pressure 68 mm[Hg] Ellis Maryana DO Work Phone: [facility] 10-17-2024 09:03-0400 Systolic blood pressure 108 mm[Hg] Ellis Maryana DO Work Phone: [facility] Encounters Encounter Date Encounter Type Care Provider Facility Start: 12-13-2024 End: 12-13-2024 Emergency department patient visit Mauricio Funes MD Work Phone: [facility] Comment on above: Symptomatic anemia ( Primary Dx); History of metrorrhagia; Menorrhagia with irregular cycle Start: 12-13-2024 End: 12-13-2024 ambulatory ELLIS MARYANA Not Available Start: 12-13-2024 End: 12-13-2024 Office outpatient visit 15 minutes Ellis Maryana DO Work Phone: [facility] Comment on above: Pre-op examination; Menorrhagia with regular cycle; Abnormal uterine bleeding (AUB); Pelvic pain Start: 12-13-2024 End: 12-13-2024 Preprocedural examination done Ellis Maryana DO Work Phone: [facility] Start: 12-13-2024 End: 12-13-2024 Bamboo flowsheet Ellis Maryana DO Work Phone: [facility] Start: 12-13-2024 End: 12-13-2024 Bamboo flowsheet Ellis Maryana DO Work Phone: [facility] Start: 12-13-2024 End: 12-13-2024 Clinisync Result Encounter Ellis Maryana DO Work Phone: [facility] External Department Unsolicited Start: 11-13-2024 End: 11-13-2024 Emergency department patient visit [facility]ysi Louise MD [facility] Comment on above: Nonspecific syndrome suggestive of viral illness (Primary Dx) Start: 11-08-2024 End: 11-15-2024 External Result Encounter Ellis Maryana DO Work Phone: [facility] External Department Unsolicited Start: 11-08-2024 End: 11-15-2024 External Result Encounter Ellis Maryana DO Work Phone: [facility] External Department Unsolicited Start: 11-08-2024 End: 11-08-2024 Patient encounter procedure Ellis Maryana DO Work Phone: [facility] Comment on above: ASCUS with positive high risk HPV cervical Start: 11-08-2024 End: 11-08-2024 ambulatory ELLIS MARYANA Not Available Start: 10-31-2024 End: 11-07-2024 External Result Encounter Ellis Maryana DO Work Phone: [facility] Unsolicited Start: 10-31-2024 End: 11-07-2024 External Result Encounter Ellis Maryana DO Work Phone: [facility] Unsolicited Start: 10-31-2024 End: 10-31-2024 Patient encounter procedure [...] Start: 10-17-2024 End: 10-17-2024 Patient encounter procedure Ellis Maryana DO Work Phone: [facility] Work Phone: Start: 10-17-2024 End: 10-17-2024 Periodic preventive med est patient 18-39 yrs Ellis Maryana DO Work Phone: [facility] Comment on above: Well woman exam with routine gynecological exam; Menorrhagia with regular cycle Start: 10-17-2024 End: 10-17-2024 ambulatory ELLIS MONZONO Not Available Start: 10-07-2022 End: 10-07-[address] DOCTOR OLIVAREZ Facility:[facility] Start: 07-27-2022 End: 07-28-[address] DOCTOR OLIVAREZ Facility:[facility] Start: 07-31-2021 End: 07-31-2021 Subsequent hospital visit by physician [facility] Covid19 Pat Screening Schedule MW PRE ADMIT Comment on above: Suspected 2019-nCoV infection Start: 05-18-2017 Ambulatory Aimee Estrada lity:[facility] Start: 05-02-2017 Ambulatory Aimee Estrada lity:[facility] Start: 04-12-2017 End: 04-14-2017 Evaluation and management of inpatient Aimee Castelan Facility:[facility] Start: 04-05-2017 Ambulatory Aimee Castelan Reykaleb lity:[facility] Start: 02-01-2017 End: 02-01-2017 Ambulatory [facility] Start: 12-16-2016 End: 12-16-2016 Emergency department patient visit Jesús Azul Facility:[facility] Date Procedure Procedure Detail Performing Clinician Start: 12-13-2024 End: 12-13-2024 Transfusion of packed red blood cells Mauricio Funes MD Work Phone: Start: 12-13-2024 Ecg routine ecg w/le ast 12 lds w/i&r Mauricio Funes MD Work Phone: Start: 12-13-2024 Basic metabolic pane l calcium total Mauricio Funes MD Work Phone: Start: 12-13-2024 Blood typing serolog ic abo Mauricio Funes MD Work Phone: Start: 12-13-2024 MLR HEMOGLOBIN A1C Core y Maryana DO Work Phone: Start: 11-13-2024 Radiologic exam ches t 2 views Deysi Louise MD Work Phone: Start: 11-08-2024 COLPOSCOPY Ellis Fazi o DO Work Phone: Start: 11-08-2024 End: 11-08-2024 Urnls dip stick/tablet rgnt non-auto w/o micrscp Ellis Maryana DO Work Phone: Start: 11-08-2024 PATHOLOGY REQUEST FO R LAB [facility] Ellis Maryana DO Work Phone: Start: 10-31-2024 Urnls dip stick/tabl et rgnt non-auto w/o micrscp Ellis Maryana DO Work Phone: Start: 10-31-2024 PATHOLOGY REQUEST FO R LAB [facility] Ellis Maryana DO Work Phone: Start: 10-17-2024 IGP,APTIMA HPV,AGE GDLN Ellis Maryana DO Work Phone: Start: 10-14-2023 Cytp cerv/vag auto t hin layer prep [facility] Work Phone: Start: 07-31-2021 COVID-19, RAPID Giuliana Chelsey Mckee DO Work Phone: Start: 10-24-2019 Microscopic observat ion [Identifier] in Cervix by Cyto stain [facility] Schedule Plan of Treatment Date Care Activity Detail Author Start: 05-29-2030 DTaP/Tdap/Td vaccine (9 - Td or Tdap) DTaP/Tdap/Td vaccine (9 - Td or Tdap) [facility] Start: 05-15-2025 End: 05-15-2025 Patient encounter procedure 05/15/2025 2:00 PM EST Procedure Visit [facility] [address] [place] [address] Ellis Mijares, DO [address] [place] [address] [facility] Start: 02-19-2025 Influenza vaccination Influenz a Vaccine (Season Ended) [facility] Start: 01-23-2025 End: 01-23-2025 Patient encounter procedure 01/23/2025 1:30 PM EDT Office Visit [facility] [address] [facility] [place] [address] Day Reid PA [address] [place], [place] [id number] [facility] Start: 01-19-2025 Influenza vaccination Flu vacc ine (Season Ended) [facility] Start: 12-06-2024 End: 12-06-2024 Patient encounter procedure 12/06/2024 1:30 PM EDT Office Visit [facility] [address] [facility] [place] [address] Day Reid PA [address] [place], [place] [id number] [facility] Start: 11-08-2024 End: 11-08-2025 Colposcopy Colposcopy Procedures Routine ASCUS with positive high risk HPV cervical Expected: 11/08/2024 (Approximate), Expires: 11/08/2025 [facility] Work Phone: Comment on above: Expected: 11/08/2024 (Approximate), Expires: 11/08/2025 Start: 11-08-2024 End: 11-08-2024 Patient encounter procedure 11/08/2024 1:30 PM EDT Procedure Visit [facility] [address] [facility] [place] [address] Ellis Mijares, DO [address], [place] [id number] [facility] Start: 10-31-2024 End: 10-31-2024 Patient encounter procedure 10/31/2024 1:30 PM EDT Procedure Visit [facility] [address] [place] [address] Ellis Mijares, DO [address], [place] [id number] [facility] Start: 10-17-2024 End: 10-17-2025 aPTT in Blood by Coagulation assay APTT Lab Routine Menorrhagia with regular cycle Expected: 10/17/2024 (Approximate), Expires: 10/17/2025 [facility] Comment on above: Expected: 10/17/2024 (Approximate), Expires: 10/17/2025 Start: 10-17-2024 End: 10-17-2025 US Pelvis US Pelvis w/ TV Imaging Routine Menorrhagia with regular cycle Expected: 10/17/2024, Expires: 10/17/2025 [facility] Comment on above: Expected: 10/17/2024 , Expires: 10/17/2025 Start: 10-17-2024 End: 10-17-2024 Patient encounter procedure 10/17/2024 9:00 AM EDT Office Visit [facility] [address] [place] [id number] Ellis Mijares, DO [address] [facility] [address] [place] [address] Arrived [facility] Comment on above: Arrived Start: 04-29-2024 Depression Screen Depression Screen [facility] Start: 02-20-2024 COVID-19 Vaccine ( season) COVID-19 Vaccine ( season) [facility] Start: 10-23-2022 Screening for malign ant neoplasm of cervix Pap smear [facility] Start: 02-19-2021 Influenza vaccination Flu vaccine (# 1) [facility] Start: 2013 Hepatitis C screening Hepatitis C sc reen [facility] Start: 2010 HIV screening HIV screen [facility] Start: 2007 Depression Screen Depression Screen [facility] Start: 2006 HPV vaccine (1 - 2-d ose series) HPV vaccine (1 - 2-dose series) [facility] Start: 2000 COVID-19 Vaccine (1) COVID-19 Vaccin e (1) [facility] Start: 04-06-2000 Varicella vaccine (2 of 2 - 2-dose childhood series) Varicella vaccine (2 of 2 - 2-dose childhood series) [facility] Start: 1995 Hepatitis C screening [facility] CBC W Auto Different ial panel - Blood CBC and differential Lab Routine Menorrhagia with regular cycle Ordered: 10/17/2024 [facility] Comment on above: Ordered: 10/17/2024 Cytology Cervical or vaginal smear or scraping study Pap Smear Pathology and Cytology Routine Well woman exam with routine gynecological exam Ordered: 10/17/2024 [facility] [employer] Work Phone: Comment on above: Ordered: 10/17/2024 EKG 12 Lead (Chest Pain) EKG 12 Lead (Chest Pain) ECG STAT 12/13/2024 6:23 PM EDT [facility] Endometrial biopsy Endometrial b iopsy Procedures Routine Menorrhagia with regular cycle Ordered: 10/31/2024 [facility] [employer] Work Phone: Comment on above: Ordered: 10/31/2024 hCG, quantitative, hCG, quantitative, Lab Routine Menorrhagia with regular cycle Ordered: 10/17/2024 [facility] [employer] Comment on above: Ordered: 10/17/2024 Hemoglobin A1c/Hemoglobin.total in Blood Hemoglobin A1c Lab Routine Menorrhagia with regular cycle Ordered: 10/17/2024 [facility] [employer] Comment on above: Ordered: 10/17/2024 End: 12-27-2024 Hemoglobin and Hematocrit Hemoglobin and Hematocrit Lab Routine Post Transfusion Post Transfusion Post Transfustion until discontinued starting 12/13/2024 [facility] Comment on above: Post Transfusion Pos t Transfusion Post Transfustion until discontinued starting 12/13/2024 End: 12-13-2024 PREPARE RBC (CROSSMATCH), 1 Units PREPARE RBC (CROSSMATCH), 1 Units Blood Bank Routine Once for 1 Occurrences starting 12/13/2024 until 12/13/2024 [facility] Comment on above: Once for 1 Occurrenc es starting 12/13/2024 until 12/13/2024 Prothrombin time (PT ) in Blood by Coagulation assay Protime-INR Lab Routine Menorrhagia with regular cycle Ordered: 10/17/2024 [facility] [employer] Comment on above: Ordered: 10/17/2024 Thyrotropin [Units/volume] in Serum or Plasma TSH Lab Routine Menorrhagia with regular cycle Ordered: 10/17/2024 [facility] Comment on above: Ordered: 10/17/2024 Thyroxine (T4) free [Mass/volume] in Serum or Plasma T4, free Lab Routine Menorrhagia with regular cycle Ordered: 10/17/2024 [facility] Comment on above: Ordered: 10/17/2024 TYPE AND SCREEN TYPE AND SCREEN Blood Bank STAT 12/13/2024 5:37 PM EDT [facility] Immunizations Immunization Date Immunization Notes Care Provider Fa cility 04-29-2023 Rabies Deysi baptiste MD Work Phone: [facility] 05-29-2020 tetanus toxoid, reduced diphtheria toxoid, and acellular pertussis vaccine, adsorbed Deysi Louise MD Work Phone: [facility] 05-29-2020 influenza virus vaccine, unspecified formulation Ellismojgan Mijares Work Phone: [facility] 03-08-2020 tetanus toxoid, reduced diphtheria toxoid, and acellular pertussis vaccine, adsorbed Deysi Louise MD Work Phone: [facility] 04-14-2017 influenza virus vaccine, unspecified formulation Deysi Louise MD Work Phone: [facility] 04-22-2016 tetanus toxoid, reduced diphtheria toxoid, and acellular pertussis vaccine, adsorbed [facility] 01-13-2000 diphtheria, tetanus toxoids and acellular pertussis vaccine, unspecified formulation Deysi Louise MD Work Phone: [facility] 01-13-2000 measles, mumps and rubella virus vaccine Deysi Louise MD Work Phone: [facility] 01-13-2000 trivalent poliovirus vaccine, live, oral Deysi Louise MD Work Phone: [facility] 01-13-2000 varicella virus vaccine Deysi Louise MD Work Phone: [facility] 10-31-1996 diphtheria, tetanus toxoids and acellular pertussis vaccine, unspecified formulation Deysi Louise MD [facility]: [facility] 10-31-1996 haemophilus influenz ae type b vaccine, conjugate unspecified formulation Deysi Louise MD Work Phone: [facility] 10-31-1996 measles, mumps and rubella virus vaccine Deysi Louise MD Work Phone: [facility] 03-07-1996 DTP-Haemophilus influenzae type b conjugate vaccine Deysi Louise MD Work Phone: [facility] 03-07-1996 hepatitis B vaccine, pediatric or pediatric/adolescent dosage Deysi Louise MD Work Phone: [facility] 03-07-1996 trivalent poliovirus vaccine, live, oral Deysi Louise MD Work Phone: [facility] 1995 DTP-Haemophilus influenzae type b conjugate vaccine Deysi Louise MD Work Phone: [facility] 1995 trivalent poliovirus vaccine, live, oral Deysi Louise MD Work Phone: [facility] 1995 DTP-Haemophilus influenzae type b conjugate vaccine Deysi Louise MD Work Phone: [facility] 1995 hepatitis B vaccine, pediatric or pediatric/adolescent dosage Deysi Louise MD Work Phone: [facility] 1995 trivalent poliovirus vaccine, live, oral Deysi Louise MD Work Phone: [facility] 1995 hepatitis B vaccine, pediatric or pediatric/adolescent dosage Deysi Louise MD Work Phone: [facility] [employer] Payers Date Payer Category Payer Private Health Insurance [facility] MEDICAID [id number] 2017 Unknown [facility] MED[facility] [id number] 2017-Present [phone] [address] [place] [address] [id number] 2015 Unknown [id number] 1995 Unknown [id number] 1995 Unknown [id number] 1995 Unknown [id number] 1995 Unknown [id number] 1995 Unknown [id number] [id number] 1995 Unknown [id number] [id number] 1995 Unknown [id number] 1995 Unknown 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 [employer] Work Phone: Start: 10-11-2019 History SDOH Food Worry 1 [facility] Work Phone: Start: 1995 Sex Assigned At Not on file [facility] [employer] Work Phone: Tobacco smoking stat [facility] Tobacco smoking consumption unknown [facility] Start: 1995 Sex assigned at Female [facility] Start: 10-13-2023 Gender identity Identifies as female gender (finding) [facility] Start: 11-13-2024 End: 12-13-2024 Sexual orientation Not on file [facility] Start: 05-10-2023 Tobacco use and exposure Smokeless tobacco non-user [employer] Start: 11-13-2024 End: 12-13-2024 History of Social function [employer] How often to you hav e a drink containing alcohol? Never [facility] How many standard drinks containing alcohol do you have on a typical day? Patient does not drink [employer] (I/We) worried wheth er (my/our) food would run out before (I/we) got money to buy more. Never true [employer] Start: 07-31-2012 Sex Female (finding) [facility] [employer] Functional Status Date Assessment Result Facility [facility] Clinical Notes 02-01-2020 to 12-13-2024 Shawna Nassar - 12/13/2024 2:10 PM Derek Resendiz LPN - 11/08/2024 1:30 PM Derek Resendiz LPN - 10/31/2024 1:30 PM Roxana Arredondo LPN - 10/17/2024 9:00 AM EDT Note Date & Type Note Facility 12-13-2024 History of Present illness Narrative Reason for Appointment: Patient ID: Femi Kramer is a 29 y.o. female who presents for Pre-op Visit Patient presents today for Pre Op appointment. Patient is scheduled to undergo Endometrial Ablation with Ana on 01-11-[address] Mijares at [facility]. MEDICATIONS No current outpatient medications ALLERGIES No [...] Respiratory: Negative. Cardiovascular: Negative. Gastrointestinal: Negative. Genitourinary: Negative. Musculoskeletal: Negative. Skin: Negative. Neurological: Negative. All other systems reviewed and are negative. Hematological: Negative. Endocrine: Negative. Allergic/Immunologic: Negative. OBJECTIVE Objective: Physical Exam Constitutional: Appearance: Normal appearance. She is well-developed. Cardiovascular: Rate and Rhythm: Normal rate and [...] nursing note reviewed. Exam conducted with a contact assembler present. Vitals: Estimated body mass index is 23 kg/m as calculated from the following: Height as of 11/08/24: 5' 4 . Weight as of 11/08/24: 134 lb. BP: No LMP recorded. ASSESSMENT & PLAN ICD-10-CM 1. Pre-op examination Z01.818 2. Menorrhagia with regular cycle N92.0 3. Abnormal uterine bleeding (AUB) N93.9 4. Pelvic pain R10.2 Pre Op: Patient is doing well but has complaints of bleeding and pelvic pain. Patient has tried hormone therapy in the past but all attempts to subside patients issues have failed. I have discussed conservative management vs. surgical management with the patient in detail and patient desires surgical management at this time. Patient will undergo Endometrial Ablation with Ana on 01/11/25. Surgical consents were signed, mmc was reviewed, and patient is to proceed to [facility]. Follow Up: Patient is to follow up between 1-2 weeks post op to assess proper healing and recovery from procedure. Documented by Kimberly Resendiz LPN on behalf of: day reid, pac documented in this encounter [facility] 11-08-2024 History of Present illness Narrative Associated Order(s): Colposcopy Post-Procedure Diagnose(s): ASCUS with positive high risk HPV cervical Reason for Appointment: Patient ID: Femi Kramer is a 29 y.o. female who presents for Abnormal Pap Smear (Pt present today a Colposcopy procedure. Pt had an abnormal pap smear ASCUS HPV+ on 10/17/2024.) Patient presents today for a Colposcopy appointment. MEDICATIONS No current outpatient medications ALLERGIES [...] Respiratory: Negative. Cardiovascular: Negative. Gastrointestinal: Negative. Genitourinary: Negative. Musculoskeletal: Negative. Skin: Negative. Neurological: Negative. All [...] nursing note reviewed. Exam conducted with a contact assembler present. Vitals: Estimated body mass index is 23 kg/m as calculated from the following: Height as of this encounter: 5' 4 . Weight as of this encounter: 134 lb. BP: 110/64 Patient's last menstrual period was 11/04/2024 (approximate). ASSESSMENT & PLAN Assessment/Plan Encounter Diagnosis: ICD-10-CM 1. ASCUS with positive high risk HPV cervical R87.610 POCT urinalysis dipstick manually resulted R87.810 POCT , urine manually resulted Colposcopy Colposcopy Date/Time: 11/08/2024 2:24 PM Performed by: [...] return in 6 months for Repeat Pap. Documented by Kimberly Resendiz LPN on behalf of: Ellis Mijares DO documented in this encounter [facility] 10-31-2024 History of Present illness Narrative Reason for Appointment: Patient ID: Femi Kramer is a 29 y.o. female who presents for No chief complaint on file. Patient presents today for Pre Op/Endometrial Biopsy appointment. Patient is scheduled to undergo Endometrial Ablation with Ana on 11/24/[address] Mijares at [facility]. MEDICATIONS No current outpatient medications ALLERGIES No [...] nursing note reviewed. Exam conducted with a contact assembler present. Vitals: Estimated body mass index is [...] reviewed, and patient is to proceed to [facility]. Follow Up: Patient is to follow up between 1-2 weeks post operative to assess proper healing and recovery from procedure. Documented by Kimberly Resendiz LPN on behalf of: Ellis Mijares DO documented in this encounter [facility] 10-17-2024 History of Present illness Narrative Reason for Appointment: Patient ID: [...] Ellis Mijares DO documented in this encounter [facility] 05-31-2020 Note The following Patien t Education Materials have been given to the patient: EducationMaterial [facility] 05-31-2020 Note Patient: MÓNICA KRAMER Age: 24 [...] EST benzocaine-menthol 20%-0.5% topical spray: 1 spray(s), [place], Topical, q4hr PRN Pain, Routine, Start date [...] Daily, 90 tab(s), Refill(s) 4, ANY VITAMIN, [facility], 163, cm, 11/07/19 8:38:00 EDT, Height/Length Measured, 71.9, kg, 11/07/19 8:38:00 EDT, Weight Measured valacyclovir 500 mg Tab: 500 mg = 1 tab(s), Oral, q12hr, # 30 tab(s), Refills(s) 1, Pharmacy: [facility], 163, cm, 04/25/20 11:47:00 EST, Height/Length [...] motion. Normal strengt (more content not included)... 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 Substance Abuse Denies Substance Abuse (11/07/2019) DENIES [...] fluid 4. Epidural prn Ludivina Gardner MD [facility] Comment on above: Result Comment: Elec tronically Signed By: TAWANDA SARMIENTO, Ludivina J\.br\Date and Time Signed: 05/29/20 16:56 EST 02-29-2020 Note Allergy and Immunolo gy Immunizations [...] disease exposure for international travelers include: ? Palauan encephalitis (JE). ? Meningococcal meningitis (MPSV4 or MCV4). ? Pneumococcal polysaccharide (PPSV23). ? IPV. ? Rabies. ? Typhoid. ? YF. Immunizations that should not be given to international travelers include: ? BCG tuberculosis. ? MMR. ? MMRV. ? Human papillomavirus (HPV4 or HPV2). ? CORNELIA. ? LAIV. Document Released: 06/26/2008 Document Revised: 08/29/2012 Document Reviewed: 07/21/2012 ExitCare? Patient Information ?2013 [employer]. [facility] 02-01-2020 Note Allergy and Immunolo gy Immunizations [...] disease exposure for international travelers include: ? Palauan encephalitis (JE). ? Meningococcal meningitis (MPSV4 or MCV4). ? Pneumococcal polysaccharide (PPSV23). ? IPV. ? Rabies. ? Typhoid. ? YF. Immunizations that should not be given to international travelers include: ? BCG tuberculosis. ? MMR. ? MMRV. ? Human papillomavirus (HPV4 or HPV2). ? CORNELIA. ? LAIV. Document Released: 06/26/2008 Document Revised: 08/29/2012 Document Reviewed: 07/21/2012 ExitCare? Patient Information ?2013 [facility]. [facility] Evaluation note Diagnosis Suspected 2019-nCoV infection documented in this encounter [employer] Phone: evaluation note* Diagnosis Well woman exam with routine gynecological exam Routine gynecological examination Menorrhagia with regular cycle [facility] Diagnosis Pre-op evaluation Menorrhagia with regular cycle [facility] Diagnosis ASCUS with positive high risk HPV cervical [facility]* Diagnosis Nonspecific syndrome suggestive of viral illness- Primary [facility] Symptomatic anemia- Primary History of metrorrhagia Personal history of other genital system and obstetric disorders Menorrhagia with irregular cycle Excessive or frequent menstruation [facility]* Diagnosis Pre-op examination Menorrhagia with regular cycle Abnormal uterine bleeding (AUB) Pelvic pain [facility] Attachments The following attachments cannot be sent through Care Everywhere. * Viral Infections ([place]) [facility] Attachments The following attachments cannot be sent through Care Everywhere. 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 Relationship Specialty Start Date End Date Giuliana Mckee DO [address] [place] [place] [phone] PCP - General 03/22/16 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 Relationship Specialty Start Date End Date Giuliana Mckee DO [address] [place] [phone] PCP - General Internal Medicine 10/14/23 Ellis Mijares DO [facility] [place] [address] PCP - [facility] 09/20/23 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 Relationship Specialty Start Date End Date Giuliana Mckee DO [address] [place] [phone] PCP - General Internal Medicine 10/14/23 Ellis Mijares DO [facility] [place] [address] PCP - [facility] 09/20/23 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 Relationship Specialty Start Date End Date Giuliana Mckee DO [address] [place] [phone] PCP - General Internal Medicine 10/14/23 Ellis Mijares DO [address] [place] [address] PCP - [facility] 09/20/23 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 Relationship Specialty Start Date End Date Giuliana Mckee DO [address] [place] [address] PCP - General Internal Medicine 10/14/23 Ellis Mijares, [address] [facility] [place] [address] PCP - [facility] 09/20/23 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 Relationship Specialty Start Date End Date Giuliana Mckee DO [address] [place] [phone] PCP - General Internal Medicine 10/14/23 Ellis Mijares, DO [address] [facility] [place] [address] PCP - [facility] 09/20/23 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 Pt had an abnormal pap smear ASCUS HPV+ on 10/17/2024. Reason Comments Cold Symptoms Cough, runny nose, c hills started on . No medications taken. Reason Comments Irregular Menses Patient sent from OB doctor after having blood drawn today for low HGB. Patient stated she has irregular menses that are often heavy in nature. Denies . Had tubal. Denies any symptoms. Reason Comments Pre-op Visit Ordered Prescriptions (unrec ognized section and content) Prescription Sig Dispense Quantity Refills Last Filled Start Date End Date loratadine (CLARITIN) 10 MG tablet Take 1 tablet by mouth daily 30 tablet 11/13/2024 5 Pseudoephedrine-DM -GG 60-15-400 MG TABS Take 1 tablet by mouth every 4-6 hours as needed (not to exceed 4 tablets in 24 hours) 30 tablet 11/13/2024 FOR RECORDS PERTAINING TO PATIENTS WHO ARE [...] BE BASED ON THE PRIMARY CLINICAL RECORDS. [facility] [employer] provides no warranty or guarantee of the accuracy or completeness of information in this document.
--- NOTE | 2024-12-15 13:52 | XR_ITS ---
[address] [address] Patient Name: FEMI KRAMER MRN: [id number] date: 1995 Sex: F Assigned Patient Location: [facility] Current Patient Location: Accession/Order Number: [id number] Exam Date: 12/15/2024 15:27 Report Date: 12/15/2024 15:28 At the request of: EMBER PEDROZA DO Procedure: XR chest 2V Chest 2 views CLINICAL HISTORY: Preop exam COMPARISON: None FINDINGS: Heart normal in size. Lungs are clear. No free air. XR/XR chest 2V IMPRESSION: NO ACUTE CARDIOPULMONARY ABNORMALITY. Impression dictated by: Servando Benavidez Jr., D.O. 12/15/2024 3:28 PM Dictation Location: [place] [address] Electronically authenticated by: [id number] Y Date: 12/15/2024 15:28
== END 2024-12-15 13:25 | disposition home or self-care (01) ==
LOC: PST 13:24
PROVIDERS: PCP Student in an Organized Health Care Education/Training Program; Visit Provider Obstetrics & Gynecology
DX: Z01.810 Encounter for preprocedural cardiovascular examination (principal); Z01.812 Encounter for preprocedural laboratory examination; N92.0 Excessive and frequent menstruation with regular cycle; N93.9 Abnormal uterine and vaginal bleeding, unspecified
CPT/HCPCS: 71046; 76830; 76856; 86850; 86900; 86901

== ENCOUNTER 2024-12-15 13:29 | Outpatient (OUT) | payer OTHER, SELFPAY ==
--- NOTE | 2024-12-15 14:20 | US_ITS ---
The [address] [address] Patient Name: FEMI KRAMER MRN: [id number] date: 1995 Sex: F Assigned Patient Location: Current Patient Location: Accession/Order Number: [id number] Exam Date: 12/15/2024 15:28 Report Date: 12/15/2024 15:35 At the request of: EMBER PEDROZA DO Procedure: US pelvis w/ transvaginal Pelvic ultrasound. Reason for exam: Menorrhagia. Comparison: none Technique: Transabdominal imaging of the uterus and ovaries was performed. Transvaginal imaging of the uterus and ovaries was also obtained. Additional spectral Doppler analysis of the ovaries was also obtained. Findings: Uterus measures 9.0 x 4.7 x 5.4 cm. No measurable fibroid. Endometrium measures 10 mm without focal abnormality. Small amount of free fluid is seen. Right ovary measures 5.8 x 2.3 x 4.1 cm. Left ovary measures 3.9 x 2.4 x 3.8 cm. Normal arterial and venous Doppler waveforms. No adnexal mass. US/US pelvis w/ transvaginal Impression: Unremarkable pelvic ultrasound. Impression dictated by: Servando Benavidez Jr., D.O. 12/15/2024 3:35 PM Dictation Location: [place] [address] Electronically authenticated by: [id number] Y Date: 12/15/2024 15:35
== END 2024-12-15 13:30 | disposition home or self-care (01) ==
LOC: US 13:30
PROVIDERS: PCP Student in an Organized Health Care Education/Training Program; Visit Provider Obstetrics & Gynecology
DX: N92.0 Excessive and frequent menstruation with regular cycle (principal)
CPT/HCPCS: 76830; 76856

== ENCOUNTER 2024-12-18 06:15 | Day surgery (SDC) | payer OTHER, SELFPAY ==
[2024-12-15 14:02] VITALS: BP 124/73; PULSE 76; TEMP 36.4; O2SAT 99; BMI 21.7
--- OUTSIDE RECORDS SUMMARY | 2024-12-18 06:19 | XMS_ITS | CCD ---
Author Organization [facility] Care Team Providers Care [place] Hand Name Role Phone Marcanthony, Aimee Unavailable Unavailable Marcanthony, Aimee Unavailable Unavailable DOCTOR, OUT OF TOWN Unavailable Unavailable Marcanthony, Aimee Unavailable Unavailable DOCTOR, OUT OF TOWN Unavailable Unavailable Marcanthony, Aimee Unavailable Unavailable Marcanthony, Aimee Unavailable Unavailable Marcanthony, Aimee Unavailable Unavailable Latha, Edward E Unavailable Unavailable Latha, Edward E Unavailable Unavailable JOSEFINA, NAVITA Unavailable Unavailable JOSEFINA, NAVITA Unavailable Unavailable Giuliana Mckee DO Primary Care Provider [phone] [facility] Primary Care Unavailable MARYANA ., DR PA Consulting Unavailable MARYANA ., DR PA Admitting Unavailable MARYANA ., DR PA Attending Unavailable [facility] Primary Care Unavailable MARYANA ., DR PA Admitting Unavailable MARYANA ., DR PA Attending Unavailable MARYANA ., DR PA Consulting Unavailable ZIEBER, DR CALLIE Bhagat Consulting Unavailable Giuliana Mckee DO Primary Care Provider [phone] Ellis Mijares DO Unavailable Giuliana Mckee DO [...] No Known Allergies Drug allergy (disorder) 04-12-2017 [facility] Repository Medications Current Medications Medication Drug [...] oral tablet (2 sources) alpha-Adrenergic Agonist, Uncompetitive [place] te Receptor Antagonist, Sigma-1 Agonist Start: 11-13-2024 [...] Active megestrol acetate 20 mg oral tablet (4 sources) Progestin Start: 12-13-2024 End: 01-13-2025 take 1 tablet by mouth twice daily, then take 1 tablet by mouth twice daily megestrol (Megace) 20 MG tablet Indications: Abnormal uterine bleeding (AUB) Take 1 tablet (20 mg total) by mouth 2 (two) times a day. Take 1 tablet 2 times daily 60 tablet 12/14/2024 01/13/2025 Active sertraline 50 mg oral tablet (1 [...] Test Name Value Interpretation Reference Range Facility ALL TYPE AND SCREENon 2024 ABO and Rh group Nom (Bld) Blood group A Rh(D) positive [facility] US PELVIS W/ TRANSVAGINALon 12-15-2024 [place] [address] Ultrasound Report Signed Patient: FEMI KRAMER MR#: [id number] : 1995 Acct:[id number] Age/Sex: 29 / F ADM Date: 12/15/24 Loc: US Attending Dr: Ellis Mijares D.O. Ordering Physician: Ellis Mijares D.O. Date of Service: 12/15/24 Procedure(s): US pelvis w/ transvaginal Accession Number(s): [id number] cc: Ellis Mijares D.O.; Giuliana Mckee M.D. The [place] [id number] Patient Name: FEMI KRAMER MRN: [facility]:[id number] date: 1995 Sex: F Assigned Patient Location: US Current Patient Location: US Accession/Order Number: [id number] Exam Date: 12/15/2024 15:28 Report Date: 12/15/2024 15:35 At the request of: ELLIS MIJARES DO Procedure: US pelvis w/ transvaginal Pelvic ultrasound. Reason for exam: Menorrhagia. Comparison: none Technique: Transabdominal imaging of the uterus and ovaries was performed. Transvaginal imaging of the uterus and ovaries was also obtained. Additional spectral Doppler analysis of the ovaries was also obtained. Findings: Uterus measures 9.0 x 4.7 x 5.4 cm. No measurable fibroid. Endometrium measures 10 mm without focal abnormality. Small amount of free fluid is seen. Right ovary measures 5.8 x 2.3 x 4.1 cm. Left ovary measures 3.9 x 2.4 x 3.8 cm. Normal arterial and venous Doppler waveforms. No adnexal mass. US/US pelvis w/ transvaginal Impression: Unremarkable pelvic ultrasound. Impression dictated by: Servando Benavidez Jr., D.O. 12/15/2024 3:35 PM Dictation Location: [place] [address] Electronically authenticated by: [id number] Y Date: 12/15/2024 15:35 Dictated By: Servando Benavidez M.D. Signed By: 12/15/24 1538 DD/ 34 TD/TT: Radio Mechanic: [facility] Radiology Radiologkaleb panda MD - 12/15/2024 [place] [address] Ultrasound Report Signed Patient: FEMI KRAMER MR#: [id number] : 1995 Acct:[id number] Age/Sex: 29 / F ADM Date: 12/15/24 Loc: US Attending Dr: Ellis Mijares D.O. Ordering Physician: Ellis Mijares D.O. Date of Service: 12/15/24 Procedure(s): US pelvis w/ transvaginal Accession Number(s): [id number] cc: Ellis Mijares D.O.; Giuliana Mckee M.D. [place] [id number] Patient Name: FEMI KRAMER MRN: [facility]:[id number] date: 1995 Sex: F Assigned Patient Location: US Current Patient Location: US Accession/Order Number: [id number] Exam Date: 12/15/2024 15:28 Report Date: 12/15/2024 15:35 At the request of: ELLIS MIJARES DO Procedure: US pelvis w/ transvaginal Pelvic ultrasound. Reason for exam: Menorrhagia. Comparison: none Technique: Transabdominal imaging of the uterus and ovaries was performed. Transvaginal imaging of the uterus and ovaries was also obtained. Additional spectral Doppler analysis of the ovaries was also obtained. Findings: Uterus measures 9.0 x 4.7 x 5.4 cm. No measurable fibroid. Endometrium measures 10 mm without focal abnormality. Small amount of free fluid is seen. Right ovary measures 5.8 x 2.3 x 4.1 cm. Left ovary measures 3.9 x 2.4 x 3.8 cm. Normal arterial and venous Doppler waveforms. No adnexal mass. US/US pelvis w/ transvaginal Impression: Unremarkable pelvic ultrasound. Impression dictated by: Servando Benavidez Jr., D.O. 12/15/2024 3:35 PM Dictation Location: [place] [address] Electronically authenticated by: [id number] Y Date: 12/15/2024 15:35 Dictated By: Servando Benavidez M.D. Signed By: 12/15/24 1538 DD/ 34 TD/TT: Radio Mechanic: [facility] Radiology Study observation (narrative) [facility] US PELVIS W/ TRANSVAGINALOrd ered By: Radiologist Radiology on 12-15-2024 [facility] Work Phone: XR CHEST 2Von 12-15-2024 [place] [address] XRay Report Signed Patient: FEMI KRAMER MR#: [id number] : 1995 Acct:[id number] Age/Sex: 29 / F ADM Date: 12/15/24 Loc: [facility] Attending Dr: Ellis Mijares D.O. Ordering Physician: Ellis Mijares D.O. Date of Service: 12/15/24 Procedure(s): XR chest 2V Accession Number(s): [id number] cc: Ellis Mijares D.O.; Giuliana Mckee M.D. The [address] [address] Patient Name: FEMI KRAMER MRN: [facility]:[id number] date: 1995 Sex: F Assigned Patient Location: [place] Current Patient Location: Accession/Order Number: [id number] Exam Date: 12/15/2024 15:27 Report Date: 12/15/2024 15:28 At the request of: ELLIS MIJARES DO Procedure: XR chest 2V Chest 2 views CLINICAL HISTORY: Preop exam COMPARISON: None FINDINGS: Heart normal in size. Lungs are clear. No free air. XR/XR chest 2V IMPRESSION: NO ACUTE CARDIOPULMONARY ABNORMALITY. Impression dictated by: Servando Benavidez Jr., D.O. 12/15/2024 3:28 PM Dictation Location: [place] [address] Electronically authenticated by: [id number] Y Date: 12/15/2024 15:28 Dictated By: Servando Benavidez M.D. Signed By: 12/15/24 1530 DD/ 1528 TD/TT: Radio Mechanic: [facility] Radiology Radiologkaleb panda MD - 12/15/2024 The [place] [id number] XRay Report Signed Patient: FEMI KRAMER MR#: [id number] : 1995 Acct:[id number] Age/Sex: 29 / F ADM Date: 12/15/24 Loc: PST Attending Dr: Ellis Mijares D.O. Ordering Physician: Ellis Mijares D.O. Date of Service: 12/15/24 Procedure(s): XR chest 2V Accession Number(s): [id number] cc: Ellis Mijares D.O.; Giuliana Mckee M.D. [place] [address] Patient Name: FEMI KRAMER MRN: [facility]:[id number] date: 1995 Sex: F Assigned Patient Location: [place] Current Patient Location: Accession/Order Number: [id number] Exam Date: 12/15/2024 15:27 Report Date: 12/15/2024 15:28 At the request of: ELLIS MIJARES DO Procedure: XR chest 2V Chest 2 views CLINICAL HISTORY: Preop exam COMPARISON: None FINDINGS: Heart normal in size. Lungs are clear. No free air. XR/XR chest 2V IMPRESSION: NO ACUTE CARDIOPULMONARY ABNORMALITY. Impression dictated by: Servando Benavidez Jr., D.O. 12/15/2024 3:28 PM Dictation Location: [place] [address] Electronically authenticated by: [id number] Y Date: 12/15/2024 15:28 Dictated By: Servando Benavidez M.D. Signed By: 12/15/24 1530 DD/ 1528 TD/TT: Radio Mechanic: [facility] [employer] Radiology Study observation (narrative) [facility] XR CHEST 2VOrdered By: Radio [facility] Radiology on 12-15-2024 [facility] [employer] Work Phone: BMPon 12-13-2024 Anion gap [Moles/Vol] 16 mmol/L 9 - 17 mmol/L [employer] [facility] Calcium [Mass/Vol] 9.1 mg/dL 8.6 - 10. 4 mg/dL [facility] [place] Chloride [Moles/Vol] 103 mmol/L 98 - 10 7 mmol/L [facility] CO2 [Moles/Vol] 20 mmol/L 20 - 31 mmol/L [facility] Creatinine [Mass/Vol] 0.7 mg/dL 0.5 - 0.9 mg/dL [facility] Joshua Lobo [facility] Gerardo [facility] Comment on above: These results are [...] 100 mg/dL High 70 - 99 mg/dL [facility] Interpretation and review of laboratory results Abnormal [facility] Potassium [Moles/Vol] 3.7 mmol/L 3.7 - 5.3 mmol/L [facility] Sodium [Moles/Vol] 139 mmol/L 135 - 144 mmol/L [facility] Urea nitrogen [Mass/Vol] 13 mg/dL 6 - 20 mg/dL [facility] Basic Metabolic Profon 12-13 Anion gap [Moles/Vol] 16 mmol/L Normal 9-17 [facility] Comment on above: Performed By: #### P T, BMP, TSH, CDP #### [facility] [address] [place] [address] Fitness Teacher: Pillo Alvarado MD Calcium [Mass/Vol] 9.1 mg/dL Normal 8.6-10.4 [facility] Comment on above: Performed By: #### P T, BMP, TSH, CDP #### [facility] [address] [facility] [place] [address] Fitness Teacher: Pillo Alvarado MD Chloride [Moles/Vol] 103 mmol/L Normal 98-107 [facility] Comment on above: Performed By: #### P T, BMP, TSH, CDP #### [facility] [address] [place], [place] [id number] Fitness Teacher: Pillo Alvarado MD CO2 [Moles/Vol] 20 mmol/L Normal 20-31 [facility] Comment on above: Performed By: #### P T, BMP, TSH, CDP #### [facility] [address] [place], [place] [id number] Fitness Teacher: Pillo Alvarado MD Creatinine [Mass/Vol] 0.7 mg/dL Normal 0.5-0.9 [facility] Comment on above: Performed By: #### P T, BMP, TSH, CDP #### [facility] [address] [place] [address] Fitness Teacher: Pillo Alvarado MD GFR/1.73 sq M.predicted among non-blacks MDRD (S/P/Bld) [Vol rate/Area] mL/min/{1.73_m2} Normal >60 [facility] Comment on above: Result Comment: These [...] #### P T, BMP, TSH, CDP #### [facility] [address] [place] [address] Fitness Teacher: Pillo Alvarado MD Glucose [Mass/Vol] 100 mg/dL High 70-99 [facility] Comment on above: Performed By: #### P T, BMP, TSH, CDP #### [facility] [address] [place], [place] [id number] Fitness Teacher: Pillo Alvarado MD Potassium [Moles/Vol] 3.7 mmol/L Normal 3.7-5.3 [facility] Comment on above: Performed By: #### P T, BMP, TSH, CDP #### [facility] [address] [place] [address] Fitness Teacher: Pillo Alvarado MD Sodium [Moles/Vol] 139 mmol/L Normal 135-144 [facility] Comment on above: Performed By: #### P T, BMP, TSH, CDP #### [facility] [address] [place] [address] Fitness Teacher: Pillo Alvarado MD Urea nitrogen [Mass/Vol] 13 mg/dL Normal 6-20 [facility] Comment on above: Performed By: #### P T, BMP, TSH, CDP #### [facility] [address] [place] [address] Fitness Teacher: Pillo Alvarado MD CBC with Auto Differentialon 12-13-2024 Basophils (Bld) [#/Vol] 0.03 10*3/uL [facility] Basophils/100 WBC (Bld) 1 % 0 - 2 % [facility] Eosinophils (Bld) [#/Vol] 0.13 10*3/uL [facility] Eosinophils/100 WBC (Bld) 3 % 0 - 5 % [facility] Erythrocyte distribution width (RBC) [Ratio] 18.2 % High 12.1 - 15.2 % [facility] Hematocrit (Bld) [Volume fraction] 24.5 % Low 36.0 - 46.0 % [facility] Hemoglobin (Bld) [Mass/Vol] 6.7 g/dL Critically low 12.0 - 16.0 g/dL [facility] Immature granulocytes (Bld) [#/Vol] 0 10*3/uL [facility] Immature granulocytes/100 WBC (Bld) 0 % 0 - 5 % [facility] Interpretation and review of laboratory results Abnormal [facility] Lymphocytes/100 WBC (Bld) 33 % 15 - 40 % [facility] Lymphocytes/100 WBC (Bld) 1.68 % [facility] MCH (RBC) [Entitic mass] 16.3 pg Low 26.0 - 34.0 pg [facility] MCHC (RBC) [Mass/Vol] 27.3 g/dL Low 31.0 - 37.0 g/dL [facility] MCV (RBC) [Entitic vol] 59.5 fL Low 80.0 - 100.0 fL [facility] Monocytes/100 WBC (Bld) 6 % 4 - 8 % [facility] Monocytes/100 WBC (Bld) 0.32 % [facility] Morphology Herminio (Bld) [Interp] SLIGHT ANISOCYTOSIS [facility] Morphology Herminio (Bld) [Interp] MODERATE MICROCYTOSIS [facility] Morphology Herminio (Bld) [Interp] MODERATE HYPOCHROMIA [facility] Morphology Herminio (Bld) [Interp] Decreased Platelets [facility] Neutrophils/100 WBC (Bld) 58 % 47 - 75 % [facility] Platelet mean volume (Bld) [Entitic vol] Abnormal 6.0 - 12.0 fL [facility] Platelets (Bld) [#/Vol] 160 10*3/uL [facility] RBC (Bld) [#/Vol] 4.12 10*6/uL 4.00 - 5.2 0 m/uL [facility] Segmented neutrophils/100 WBC (Bld) 2.98 % [facility] WBC other (Bld) [#/Vol] 5.1 [facility] CBC with Diffon 12-13-2024 Morphology Herminio (Bld) [Interp] SLIGHT Normal [facility] Comment on above: Result Comment: ANIS OCYTOSIS MODERATE MICROCYTOSIS MODERATE HYPOCHROMIA Decreased Platelets Performed By: #### P T, BMP, TSH, CDP #### [facility] [address] [place] [address] Fitness Teacher: Pillo Alvarado MD Abs. Basophil 0.03 k/uL Normal 0.00-0.20 [facility] Comment on above: Performed By: #### P T, BMP, TSH, CDP #### [facility] [address] [place] [id number] Fitness Teacher: Pillo Alvarado MD Abs.Imm.Granulocyte 0.00 k/uL Normal 0.00-0.30 [facility] Comment on above: Performed By: #### P T, BMP, TSH, CDP #### [facility] [address] [place] [id number] Fitness Teacher: Pillo Alvarado MD Abs.Neutrophil (Seg) 2.98 k/uL Normal 2.5-7.0 [facility] Comment on above: Performed By: #### P T, BMP, TSH, CDP #### [facility] [address] [place] [address] Fitness Teacher: Pillo Alvarado MD Basophils/100 WBC (Bld) 1 % Normal 0-2 [facility] Comment on above: Performed By: #### P T, BMP, TSH, CDP #### [facility] [address] [place] [address] Fitness Teacher: Pillo Alvarado MD Eosinophils (Bld) [#/Vol] 0.13 10*3/uL Normal 0.00-0.40 [facility] Comment on above: Performed By: #### P T, BMP, TSH, CDP #### [facility] [address] [place] [address] Fitness Teacher: Pillo Alvarado MD Eosinophils/100 WBC (Bld) 3 % Normal 0-5 [facility] Comment on above: Performed By: #### P T, BMP, TSH, CDP #### [facility] [address] [place] [id number] Fitness Teacher: Pillo Alvarado MD Erythrocyte distribution width (RBC) [Ratio] 18.2 % High 12.1-15.2 [facility] Comment on above: Performed By: #### P T, BMP, TSH, CDP #### [facility] [address] [place] [address] Fitness Teacher: Pilol Alvarado MD Hematocrit (Bld) [Volume fraction] 24.5 % Low 36.0-46.0 [facility] Comment on above: Performed By: #### P T, BMP, TSH, CDP #### [facility] [address] [place] [id number] Fitness Teacher: Pillo Alvarado MD Hemoglobin (Bld) [Mass/Vol] 6.7 g/dL Critically low 12.0-16.0 [facility] Comment on above: Performed By: #### P T, BMP, TSH, CDP #### [facility] [address] [place] [address] Fitness Teacher: Pillo Alvarado MD Immature granulocytes/100 WBC (Bld) 0 % Normal 0-5 [facility] Comment on above: Performed By: #### P T, BMP, TSH, CDP #### [facility] [address] [place] [address] Fitness Teacher: Pillo Alvarado MD Lymphocytes (Bld) [#/Vol] 1.68 10*3/uL Normal 1.00-4.80 [facility] Comment on above: Performed By: #### P T, BMP, TSH, CDP #### [facility] [address] [place] [address] Fitness Teacher: Pillo Alvarado MD Lymphocytes/100 WBC (Bld) 33 % Normal 15-40 [facility] Comment on above: Performed By: #### P T, BMP, TSH, CDP #### [facility] [address] [place] [address] Fitness Teacher: Pillo Alvarado MD MCH (RBC) [Entitic mass] 16.3 pg Low 26.0-34.0 [facility] Comment on above: Performed By: #### P T, BMP, TSH, CDP #### [facility] [address] [place] [phone] Fitness Teacher: Pillo Alvarado MD MCHC (RBC) [Mass/Vol] 27.3 g/dL Low 31.0-37.0 [facility] Comment on above: Performed By: #### P T, BMP, TSH, CDP #### [facility] [address] [place] [address] Fitness Teacher: Pillo Alvarado MD MCV (RBC) [Entitic vol] 59.5 fL Low 80.0-100.0 [facility] Comment on above: Performed By: #### P T, BMP, TSH, CDP #### [facility] [address] [place] [address] Fitness Teacher: Pillo Alvarado MD Monocytes (Bld) [#/Vol] 0.32 10*3/uL Normal 0.00-1.00 [facility] Comment on above: Performed By: #### P T, BMP, TSH, CDP #### [facility] [address] [place] [address] Fitness Teacher: Pillo Alvarado MD Monocytes/100 WBC (Bld) 6 % Normal 4-8 [facility] Comment on above: Performed By: #### P T, BMP, TSH, CDP #### [facility] [address] [place] [address] Fitness Teacher: Pillo Alvarado MD MPV Abnormal Normal 6.0-12.0 [facility] Comment on above: Performed By: #### P T, BMP, TSH, CDP #### [facility] [address] [place] [address] Fitness Teacher: Pillo Alvarado MD Neutrophil (Seg) 58 % Normal 47-75 [facility] Comment on above: Performed By: #### P T, BMP, TSH, CDP #### [facility] [address] [place] [address] Fitness Teacher: Pillo Alvarado MD Platelets (Bld) [#/Vol] 160 10*3/uL Normal 140-450 [facility] Comment on above: Performed By: #### P T, BMP, TSH, CDP #### [facility] [address] [place] [address] Fitness Teacher: Pillo Alvarado MD RBC (Bld) [#/Vol] 4.12 10*6/uL Normal 4.00-5.20 [facility] Comment on above: Performed By: #### P T, BMP, TSH, CDP #### [facility] [address] [place] [address] Fitness Teacher: Pillo Alvarado MD WBC (Bld) [#/Vol] 5.1 10*3/uL Normal 3.5-11.0 [facility] Comment on above: Performed By: #### P T, BMP, TSH, CDP #### [facility] [address] [place] [address] Fitness Teacher: Pillo Alvarado MD HCG Qualitative, Serumon HCG ( test) Ql Negative NEGATIVE [facility] Comment on above: Specimens with hCG l evels near the threshold of the test (25 mIU/mL) may give a negative or indeterminate result. In such cases, another test should be performed with a new specimen in 48-72 hours. If early is suspected clinically in this setting, correlation with quantitative serum b-hCG level is suggested. [employer] has confirmed the use of plasma for this test. This has not been cleared or approved by the U.S. Food and Drug Administration. The FDA has determined that such clearance is not necessary. [facility] HCG Screen, Bloodon 12-14-19 25 HCG Screen, Blood Negative Normal NEG [facility] Comment on above: Result Comment: Spec imens with hCG levels near the threshold of the test (25 mIU/mL) may give a negative or indeterminate result. In such cases, another test should be performed with a new specimen in 48-72 hours. If early is suspected clinically in this setting, correlation with quantitative serum b-hCG level is suggested. [facility] has confirmed the use of plasma for this test. This has not been cleared or approved by the U.S. Food and Drug Administration. The FDA has determined that such clearance is not necessary. Performed By: #### H CG #### [facility] [address] [place] [address] Fitness Teacher: Pillo Alvarado MD MLR HEMOGLOBIN A1Con 025 Glucose [Mass/Vol] 100 mg/dL [facility] HbA1c (Bld) [Mass fraction] 5.1 % 4.5 - 6.2 % [facility] Comment on above: ADA RECOMMENDED LIMI T 4.0 - 6.0 ADA THERAPEUTIC TARGET < 7.0 ACTION SUGGESTED > 7.0 [facility] No Panel Informationon 12-13 [facility] PTon 12-13-2024 INR Coag (PPP) [Relative time] 1.1 {INR} Normal [facility] Comment on above: Result Comment: Therapeutic Range: Moderate Anticoagulant Intensity: INR = 2.0-3.0 High Anticoagulant Intensity: INR = 2.5-3.5 Performed By: #### P T, BMP, TSH, CDP #### [facility] [address] [place] [address] Fitness Teacher: Pillo Alvarado MD PT Coag (PPP) [Time] 14.7 s High 11.5-14.2 [facility] Comment on above: Performed By: #### P T, BMP, TSH, CDP #### [facility] [address] [place] [address] Fitness Teacher: Pillo Alvarado MD Protime-INRon 12-13-2024 INR Coag (PPP) [Relative time] 1.1 {INR} [facility] Comment on above: Therapeutic Range: Moderate Anticoagulant Intensity: INR = 2.0-3.0 High Anticoagulant Intensity: INR = 2.5-3.5 Interpretation and review of laboratory results Abnormal [facility] PT Coag (PPP) [Time] 14.7 s High [facility] TSHon 12-13-2024 TSH Qn 1.68 m[IU]/L [facility] Thyroid Stim. Horm.on 2024 Thyroid Stim. Horm. 1.68 uIU/mL Normal 0.27-4.20 [facility] Comment on above: Performed By: #### P T, BMP, TSH, CDP #### [facility] [address] [place] [address] Fitness Teacher: Pillo Alvarado MD Type + Screenon 12-13-2024 Type + Screen Sample Expiration 12/16/2024,2359 Arm Band Number RZB ABO/Rh(D) A POSITIVE Antibody Screen NEGATIVE Unit Number [id number] Blood Component Type Leukocyte Reduced Red Cell Unit Division 00 Status of Unit TRANSFUSED Transfusion Status OK TO TRANSFUSE Crossmatch Result COMPATIBLE Normal [facility] Comment on above: Performed By: #### T YS #### [facility] [address] [place] [address] Fitness Teacher: Pillo Alvarado MD PATHOLOGY REQUEST FOR LAB CO RPon 11-15-2024 PATHOLOGY REQUEST FOR LAB [place] [facility] Comment on above: See report. Scanned copy available in EMR. [facility] XR CHEST (2 VW)on 11-13-2024 XR CHEST [...] Pillo Jean MD 11/13/24 Final result Normal [facility] XR Chest 2 Viewson No acute heart or lung disease identified. [facility] RIS CONSOLIDATED EXAM: XR CHEST (2 VW ) HISTORY: . cough, chills, scattered courses/wheeze, no hx asthma . COMPARISON: None. TECHNIQUE: Frontal and lateral chest FINDINGS: Heart and vascularity are unremarkable. Lungs are free of focal infiltrates. No bony abnormality is appreciated. [facility] RIS CONSOLIDATED Ted Pillo L, MD - 11/13/2024 EXAM: XR CHEST (2 VW) HISTORY: . cough, chills, scattered courses/wheeze, no hx asthma . COMPARISON: None. TECHNIQUE: Frontal and lateral chest FINDINGS: Heart and vascularity are unremarkable. Lungs are free of focal infiltrates. No bony abnormality is appreciated. IMPRESSION: No acute heart or lung disease identified. [facility] Radiology Study observation (narrative) [facility] XR Chest 2 ViewsOrdered By: Pillo Jean on 11-13-2024 [facility] Work Phone: Colposcopyon 11-08-2024 Kimberly Resendiz LPN 11/08/2024 3:07 PM Colposcopy [...] return in 6 months for Repeat Pap. [facility] HCG ( test) Ql (U)o n 11-08-2024 Interpretation and review of laboratory results Normal [facility] Preg Test, Ur Negative Negative [facility] Urinalysis macro (dipstick) panel (U)on 11-08-2024 Bilirubin, UA Negative Negative - 4(70) +++ mg/dL [facility] Blood, UA Negative Negative - 50 Terell/mcL [facility] Clarity, UA Clear [facility] Color, UA Yellow [facility] Glucose, UA Negative Negative - 1999(110) ++++ mg/dL [facility] Interpretation and review of laboratory results Normal [facility] Ketones, UA Negative Negative - 160(16) ++++ mg/dL [facility] Leukocytes, UA Trace Negative - 500+++ Kaylyn/mcL [facility] Nitrite, UA Negative Negative - Positive [facility] pH, UA 7 5 - 9 [facility] Protein, UA Negative Negative - 1999(20) ++++ mg/dL [facility] Spec Grav, UA 1.025 1 - 1.03 [facility] Urobilinogen, UA 0.2 0.2 - 12 mg/dL [facility] PATHOLOGY REQUEST FOR LAB CO RPon 11-07-2024 PATHOLOGY REQUEST FOR LAB K[place] [facility] Comment on above: See report. Scanned copy available in EMR. [facility] HCG ( test) Ql (U)o n 10-31-2024 Interpretation and review of laboratory results Normal [facility] Preg Test, Ur Negative Negative [facility] Urinalysis macro (dipstick) panel (U)on 10-31-2024 Bilirubin, UA Negative Negative - 4(70) +++ mg/dL [facility] Blood, UA Positive Negative - 50 Terell/mcL [facility] Comment on above: large Clarity, UA Clear [facility] Color, UA Yellow [facility] Glucose, UA Negative Negative - 1999(110) ++++ mg/dL [facility] Interpretation and review of laboratory results Normal [facility] Ketones, UA Negative Negative - 160(16) ++++ mg/dL [facility] Leukocytes, UA Negative Negative - 500+++ Kaylyn/mcL [facility] Nitrite, UA Negative Negative - Positive [facility] pH, UA 5.5 5 - 9 [facility] Protein, UA Negative Negative - 1999(20) ++++ mg/dL [facility] Spec Grav, UA 1.03 1 - 1.03 [facility] Urobilinogen, UA 0.2 0.2 - 12 mg/dL [facility] IGP,APTIMA HPV,AGE GDLNon AGE GDLN ACOG TESTING Note . [facility] Comment on above: TESTS RESULT FLAG UN ITS REF RANGE LAB Clinician Provided Cytology Information Source.............Cervix;Endocervix No. of containers..01 ThinPrep Vial Age Algo ACOG Olinda... FLAG LEGEND: L-Low Normal,H-High Normal,LL-Alert Low,HH-Alert High <-Panic Low,>-Panic High,A-Abnormal,AA-Critical Abnormal Performed at: 01 =G [address] [address] Leisa Rivera MD, HPV APTIMA Positive Abnormal Negative [facility] Comment on above: This nucleic acid am plification test detects fourteen high- risk HPV types (16,18,31,33,35,39,45,51,52,56,58,59,66,68) without differentiation. Performed at: =[address] [id number] Fitness Teacher: Leisa Rivera MD, Phone: [phone] Performed at: [address] [id number] Fitness Teacher: Leisa Rivera MD, Phone: [phone] IGP, RFX APTIMA HPV ASCU Note Abnormal . [facility] Comment on above: TESTS RESULT FLAG UN [...] are present. Performed by: 02 Janelle Hooper, Union Organiser ([facility]) Electronically si... Fanny Phan MD, Pathologist . [...] <-Panic Low,>-Panic High,A-Abnormal,AA-Critical Abnormal Performed at: [address] [place] [address] Leisa Rivera MD, Interpretation and review of laboratory results Abnormal [facility] BRUSH-SPATULA CERVIX ENDOCERVIX CL[facility]IS[facility] Cytology Cervical or vaginal smear or scraping studyOrdered By: Radha Hayes on 10-14-2023 [facility] PAP ACOG PANEL 2: 21 to 29on 10-14-2022 . . Normal [facility] Comment on above: Performed By: #### [id number] #### [facility] [address] [place] [address] Dr. Thu Whitman Age Gdln ACOG Testing - [facility] Comment on above: Performed By: #### [id number] #### [facility] [address] [place] [address] Dr. Thu Whitman DIAGNOSIS: Comment [facility] Comment on above: Result Comment: NEGA TIVE FOR INTRAEPITHELIAL LESION OR MALIGNANCY. Performed By: #### [id number] #### [facility] [address] [place] [address] Dr. Thu Whitman Methodology: Comment [facility] Comment on above: Result Comment: This liquid based ThinPrep(R) pap test was screened with the use of an image guided system. Performed By: #### [id number] #### [facility] [address] [place] [address] Dr. Thu Whitman Note: Comment [facility] Comment on above: Result Comment: The Pap smear is a screening test designed to aid in the detection of premalignant and malignant conditions of the uterine cervix. It is not a diagnostic procedure and should not be used as the sole means of detecting cervical cancer. Both false-positive and false-negative reports do occur. . Performed By: #### 4 [id number] #### [facility] [address] [place] [address] Dr. Thu Whitman Performed by: Comment Normal [facility] Comment on above: Result Comment: Denisse Dukes [employer] Performed By: #### 4 [id number] #### [facility] [address] [place] [address] Dr. Thu Whitman Reflex Criteria: Comment [facility] Comment on above: Result Comment: The HPV DNA reflex criteria were not met with this specimen result therefore, no HPV testing was performed. . Performed By: #### 4 [id number] #### [facility] [address] [place] [address] Dr. Thu Whitman Specimen adequacy: Comment Normal [facility] Comment on above: Result Comment: Sati sfactory for evaluation. Endocervical and/or squamous metaplastic cells (endocervical component) are present. Performed By: #### 4 [id number] #### [facility] [address] [place] [address] Dr. Thu Whitman CBC AUTO DIFFon 07-27-2022 BASO # 0.1 103/ul Normal 0.0-0.1 [facility] Comment on above: Performed By: #### C BC #### [facility] [address] [place] [address] Dr. Thu Whitman Basophils/100 WBC (Bld) 1.0 % Normal 0.2-2.0 [facility] Comment on above: Performed By: #### C BC #### [facility] [address] [place] [address] Dr. Thu Whitman EO # 0.1 103/ul Normal 0.0-0.7 [facility] Comment on above: Performed By: #### C BC #### [facility] [address] [place] [address] Dr. Thu Whitman Eosinophils/100 WBC (Bld) 2.0 % Normal 0.9-7.0 [facility] Comment on above: Performed By: #### C BC #### [facility] [address] [place] [address] Dr. Thu Whitman Erythrocyte distribution width (RBC) [Ratio] 12.2 % Normal 11.0-15.0 [facility] Comment on above: Performed By: #### C BC #### [facility] [address] [place] [address] Dr. Thu Whitman Hematocrit (Bld) [Volume fraction] 43.3 % Normal 36.0-48.0 [facility] Comment on above: Performed By: #### C BC #### [facility] [address] [place] [address] Dr. Thu Whitman Hemoglobin (Bld) [Mass/Vol] 13.8 g/dL Normal 12.0-16.0 [facility] Comment on above: Performed By: #### C BC #### [facility] [address] [place] [address] Dr. Thu Whitman IG # 0.01 10e3/ul Normal 0.00-0.03 [facility] Comment on above: Performed By: #### C BC #### [facility] [address] [place] [address] Dr. Thu Whitman IG % 0.2 % Normal 0.0-0.5 [facility] Comment on above: Performed By: #### C BC #### [facility] [address] [place] [address] Dr. Thu Whitman LYMPH # 2.3 103/ul Normal 1.2-3.8 [facility] Comment on above: Performed By: #### C BC #### [facility] [address] [place] [address] Dr. Thu Whitman Lymphocytes/100 WBC (Bld) 47.2 % Normal 20.5-60.0 [facility] Comment on above: Performed By: #### C BC #### [facility] [address] [place] [address] Dr. Thu Whitman MANUAL DIFF REQ NO Normal [facility] Comment on above: Performed By: #### C BC #### [facility] [address] [place] [address] Dr. Thu Whitman MCH (RBC) [Entitic mass] 28.5 pg Normal 26.7-34.0 [facility] Comment on above: Performed By: #### C BC #### [facility] [address] [place] [address] Dr. Thu Whitman MCHC (RBC) [Mass/Vol] 31.9 g/dL Normal 29.9-35.2 [facility] Comment on above: Performed By: #### C BC #### [facility] [address] [place] [address] Dr. Thu Whitman MCV (RBC) [Entitic vol] 89.5 fL Normal 81.0-99.0 [facility] Comment on above: Performed By: #### C BC #### [facility] [address] [place] [address] Dr. Thu Whitman MONO # 0.4 103/ul Normal 0.3-0.8 [facility] Comment on above: Performed By: #### C BC #### [facility] [address] [place] [address] Dr. Thu Whitman Monocytes/100 WBC (Bld) 7.4 % Normal 1.7-12.0 [facility] Comment on above: Performed By: #### C BC #### [facility] [address] [place] [address] Dr. Thu Whitman NEUT # 2.1 103/ul Normal 1.4-6.5 [facility] Comment on above: Performed By: #### C BC #### [facility] [address] [place] [address] Dr. Thu Whitman Neutrophils/100 WBC (Bld) 42.2 % Critically low 43.0-75.0 [facility] Comment on above: Performed By: #### C BC #### [facility] [address] [place] [address] Dr. Thu Whitman Platelet mean volume (Bld) [Entitic vol] 10.0 fL Normal 9.5-13.5 [facility] Comment on above: Performed By: #### C BC #### [facility] [address] [place] [address] Dr. Thu Whitman PLT 218 103/ul Normal 150-450 [facility] Comment on above: Performed By: #### C BC #### [facility] [address] [place] [address] Dr. Thu Whitman RBC 4.84 106/ul Normal 4.20-5.40 [facility] Comment on above: Performed By: #### C BC #### [facility] [address] [place] [address] Dr. Thu Whitman WBC 4.9 103/ul Normal 4.0-11.0 [facility] Comment on above: Performed By: #### C BC #### [facility] [address] [place] [address] Dr. Thu Whitman FREE T4on 07-27-2022 Free T4 [Mass/Vol] 0.85 ng/dL Normal 0.76-1.46 [facility] Comment on above: Performed By: #### F T4 #### [facility] [address] [place] [address] Dr. Thu Whitman GLYCOHEMOGLOBIN A1Con 2022 ADA RECOMMENDATION SEE BELOW Normal [facility] Comment on above: Result Comment: ADA RECOMMENDED LIMIT 4.0 - 6.0 ADA THERAPEUTIC TARGET < 7.0 ACTION SUGGESTED > 7.0 Performed By: #### A 1C #### [facility] [address] [place] [address] Dr. Thu Whitman Glucose [Mass/Vol] 94 mg/dL Normal [facility] Comment on above: Performed By: #### A 1C #### [facility] [address] [place] [address] Dr. Thu Whitman HbA1c (Bld) [Mass fraction] 4.9 % Normal 4.5-6.2 [facility] Comment on above: Performed By: #### A 1C #### [facility] [address] [place] [address] Dr. Thu Whitman PREG QUANT HCGon 07-27-2022 HCG QUANT <1 Normal [facility] Comment on above: Performed By: #### T SH, PREGQNT #### [facility] [address] [place] [address] Dr. Thu Whitman HCG RANGE SEE BELOW Normal [facility] Comment on above: Result Comment: 5-50 0.2-1 WEEK 50-500 1-2 WEEKS 100-5,000 2-3 WEEKS 500-10,000 3-4 WEEKS 1,000-50,000 4-5 WEEKS 10,000-100,000 5-6 WEEKS 15,000-200,000 6-8 WEEKS 10,000-100,000 2-3 MONTHS Performed By: #### T SH, PREGQNT #### [facility] [address] [place] [address] Dr. Thu Whitman PROTIMEon 07-27-2022 INR Coag (PPP) [Relative time] 1.04 {INR} Normal [facility] Comment on above: Performed By: #### P TT, PT #### [facility] [address] [place] [address] Dr. hTu Whitman INR GUIDELINES SEE BELOW Normal [facility] Comment on above: Result Comment: HELGA RED INR: 2.0 - 3.0 CONDITIONS NOT LISTED BELOW 2.5 - 3.5 FOR PROSTHETIC HEART VALVE REPLACEMENT 2.5 - 3.5 RECURRENT THROMBOSIS Performed By: #### P TT, PT #### [facility] [address] [place] [address] Dr. Thu Whitman PT Coag (PPP) [Time] 11.0 s Normal 9.0-11.6 [facility] Comment on above: Performed By: #### P TT, PT #### [facility] [address] [place] [address] Dr. Thu Whitman PTTon 07-27-2022 aPTT Coag (Bld) [Time] 28.9 s Normal 22.3-36.2 [facility] Comment on above: Performed By: #### P TT, PT #### [facility] [address] [place] [address] Dr. Thu Whitman TSHon 07-27-2022 TSH 1.549 uIU/mL Normal 0.358-3.[address] [facility] Comment on above: Performed By: #### T SH, PREGQNT #### [facility] [address] [place] [address] Dr. Thu Whitman US PELVIS AND TRANSVAGon [...] by: CALLIE WEISS Date: 2022-07-27 11:20 Normal [facility] COVID-19, Rapidon 07-31-2021 SARS-CoV-2 (COVID-19) RNA TASNEEM+probe Ql (Unsp spec) Not detected Not Detected [facility] Comment on above: Rapid NAAT: The [...] management decisions. Fact sheet for Healthcare Providers: https://www.fda.gov/media/183806/download Fact sheet for Patients: https://www.fda.gov/media/191751/download Methodology: Isothermal Nucleic Acid Amplification Specimen Description .NASOPHARYNGEAL SWAB [facility] Provider Letteron 12-31-2020 Provider Letter (Inserted Image. [...] your prompt attention to this matter. Sincerely, [place] [address] [facility] CBCon 08-05-2020 Erythrocyte distribution width (RBC) [Ratio] 12.5 % Normal 11.5 - 14.5 [facility] Comment on above: Performed By: #### C BC #### [address] [address] Hematocrit (Bld) [Volume fraction] 39.1 % Normal 36.0 - 46.0 [facility] Comment on above: Performed By: #### C BC #### [address] [address] Hemoglobin (Bld) [Mass/Vol] 13.2 g/dL Normal 12.0 - 16.0 [facility] Comment on above: Performed By: #### C BC #### [address] [address] MCHC (RBC) [Mass/Vol] 33.7 g/dL Normal 32.0 - 36.0 [facility] Comment on above: Performed By: #### C BC #### [address] [address] MCV (RBC) [Entitic vol] 93 fL Normal 80 - 100 [facility] Comment on above: Performed By: #### C BC #### [address] [address] Platelets (Bld) [#/Vol] 189 10*3/uL Normal 150 - 450 [facility] Comment on above: Performed By: #### C BC #### [address] [address] RBC (Bld) [#/Vol] 4.21 x10E12/L Normal 4.00 - 5.20 [facility] Comment on above: Performed By: #### C BC #### [address] [address] WBC (Bld) [#/Vol] 4.9 10*3/uL Normal 4.4 - 11.3 [facility] Comment on above: Performed By: #### C BC #### [address] [address] HCG,SERUM QUALITATIVEon 07-22 HCG,SERUM QUALITATIVE Negative Normal Negative [facility] Comment on above: Performed By: #### H CGS #### [facility] [address] [place] [address] Provider Note - ED v2on 07-22 Provider Note - ED v2 Provider Note - ED v2: Chart Review: ED NOTES ED NOTES: HPI: Patient started her period on Wednesday and has noticed increased bleeding ever since. She states she is feeling approximately 2 pads per hour. Patient does not take any current control pills and follows up with Dr. Dias SUBSURFACE AUGMENTEE ELINT OPERATOR in [place]. She denies any nausea vomiting or fever. 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 Sensation and motor function of extremities grossly intact. Psych: Appropriate mood and affect. I have reviewed and confirmed nurses/medics notes for patient past, social and family history. Portions of this note were dictated by speech recognition. An attempt at proof reading was made to minimize errors. Minor errors in head orthopedic team physician may be present. HISTORY OF PRESENTING ILLNESS [...] Current Medications SIGNIFICANT EVENTS: No documented data. SUBSURFACE AUGMENTEE ELINT OPERATOR: Is : unable to answer Is : [...] SIGNS: T PRBP SpO2O2(LPM) %FiO2 Method 05-Aug-2020 13:37:[id number]/60 100 05-Aug-2020 12:36:[id number]/74 100 05-Aug-2020 12:05:[id number]/74 100 MEDICAL DECISION MAKING/ED COURSE MDM/ED COURSE: 1330-final results reviewed with patient. Lab work here was unremarkable including a negative test and stable hemoglobin and hematocrit. Patient has stable vital signs and I discussed with her the option of me calling her SUBSURFACE AUGMENTEE ELINT OPERATOR or her taking care of it on [...] I do recommend that you contact your SUBSURFACE AUGMENTEE ELINT OPERATOR today or tomorrow and discuss your symptoms [...] patient: no Electronic Signatures: Jitendra Lux I (FILTER TIP INSPECTOR-ROAD MACHINE RUNNER) (Signed 05-Aug-2020 13:41) Authored: ED Notes, HPI, PMH, Results/Vital Signs, MDM/ED Course, Clinical Impression, Attestation, Chart Review, Scores Last Updated: 05-Aug-2020 13:41 by Jitendra Lux I (FILTER TIP INSPECTOR-ROAD MACHINE RUNNER) [facility] Risk Screen - Adult Emergenc yon 08-05-2020 Risk Screen - Adult Emergency Preferred Language: Preferred Language: Preferred Language for Discussing Health Care (patient/designee)Justin larsen Advanced Directives: Advance Directive/DNRno Family Violence Adult: Abuse Screen: Are you or have you been threatened or abused physically, emotionally, or sexually by anyoneno Learning Assessment (Patient): Learning Assessment (Patient): Patient is Able to be Assessed for Learningyes Factors Influencing Readiness to Learnn/a Factors that Impact Ability to Learnnone Devices/Methods Used to Communicatenone Learning Preferencesverbal instruction; written material Cultural Considerationsnone Developmental Considerationsnone Amish Considerationsnone Learning Assessment (Other Learner): Learning Assessment (Other Learner): Other learner availableno Pressure Injury/TB/Substance: Pressure Injury: Do you have a coughno Substance Use Current or Former Historynever: Cigarette/Tobacco, e-Cigarette/Vaping, Alcohol, Street Drugs Admission Risk Screen: Significant IndicatorsComplete CAGE: CAGE: Is this an injured patient at a Trauma Center ([facility]/[place] /[place]): no Electronic Signatures: Kay Medley (BRENDA) (Signed 05-Aug-2020 12:43) Authored: Preferred Language, Advanced Directives, Family Violence Adult, Learning Assessment (Patient), Learning Assessment (Other Learner), Pressure Injury/TB/Substance, Pressure Injury, CAGE Last Updated: 05-Aug-2020 12:43 by Kay Medley (BRENDA) [facility] Triage - EDon 08-05-2020 Triage - ED [...] Accompanied By: self Language: Spoken Language Preferred: Lithuanian Reading Language Preferred: Lithuanian Present on Arrival: Device Present on Arrival [...] BMI (kg/m2): 25.827 Calculated BSA (m2) 1.75 [place] Coma Scale: Best Eye Response: (E4) spontaneous Best Motor Response: (M6) obeys commands Best Verbal Response: (V5) oriented [place] Score: 15 Allergies: no Last menstrual period: 03-Aug-2020 SUBSURFACE AUGMENTEE ELINT OPERATOR History: control Patient has homicidal thoughts: no [...] Note - ED v2 05-Aug-2020 12:25 Normal [facility] Ambulatory Clinical Summaryo n 07-09-2020 Ambulatory Clinical Summary {[id number] }[id number] Normal [place] [facility] Not john 07-09-2020 Obstetrics Office/Clinic Note Chief Complaint 6 week PP and PO, delivered 05-29-2020, had tubel 06-26-2020, EPDS score 9 , bottlefeeding - formula [place] Depression Score EPDS Score: 9 History of [...] routine follow-up) Ordered: care only (separate procedure) [id number] Orders: acetaminophen-oxycodone, 1 tab(s), Oral, q6hr Pain 4-7, 15 tab(s), Refill(s) 0, [facility], 162, cm, 06/18/20 7:34:00 EST, Height/Length Dosing, 70.6, kg, 06/18/20 7:34:00 EST, Weight Dosing docusate, 100 mg = 1 cap(s), Oral, BID, Take to avoid constipation, # 40 cap(s), Refills(s) 0, Pharmacy: [facility], 162, cm, 06/18/20 7:34:00 EST, Height/Length Dosing, 70.6, kg, 06/18/20 7:34:00 EST, Weight Dosing ibuprofen, 600 mg = 1 tab(s), Oral, q6hr, PRN Pain 1-3, # 30 tab(s), Refills(s) 0, Pharmacy: [facility], 162, cm, 06/18/20 7:34:00 EST, Height/Length Dosing, 70.6, kg, 06/18/20 7:34:00 EST, Weight Dosing Follow-up With When Contact Information [facility] In 1 year Additional Instructions: Problem List/Past [...] DENIES, 07/09/2020 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 Never Smokeless Tobacco Use:., 07/09/2020 Family History Diabetes mellitus type 1: Grandparent. Hypertension: Grandparent. [facility] Patient Educationon 07-09-19 21 Patient Education Heart [...] heart disease and stroke prevention, visit the [place] [employer] website at www.americanheart.org Document Released: 01/19/2005 Document Revised: 12/06/2012 Document Reviewed: 08/03/2008 ExitCare? Patient Information ?2014 [employer]. [facility] Pre-Certification Formon Pre-Certification Form [id number]#[id number]: 127 [facility] [place] IntraOperative Documentson 0 07-01-2020 IntraOperative Documents [id number]#1.00CD: 127 [facility] Main OR Intraoperative Recor don 07-01-2020 Main OR Intraoperative Record IntraOp Document Type FT Summary Primary Physician: Ludivina GARDNER MD Finalized Date/Time: 07/01/20 09:20:13 Pt. Name: FEMI KRAMER.O.B./Sex: 1995 Female Med Rec #: [id number] Physician: Ludivina GARDNER MD Financial #: [id number] Pt. Type: A Room/Bed: [facility] Admit/Disch: 06/26/20 11:11:26 - 06/26/20 17:05:00 Institution: [...] 1 Entry 2 Entry 3 Case Attendee Jesse RODRIGUEZ, Pamela GARDNER MD, Ludivina Hyde RN, Nazia Phillip Role Performed Anesthesiologist Surgeon - Primary Batch Roller Operator - Primary Sustainable Design Coordinator Time In 06/26/20 13:41:00 06/26/20 13:41:00 06/26/20 [...] CNOR, Wagner Role Performed Scrub - Primary BLENDER LABORER Time In 06/26/20 13:41:00 06/26/20 13:41:00 Time Out 06/26/20 14:28:00 06/26/20 14:28:00 Procedure TUBAL LIGATION TUBAL LIGATION LAPAROSCOPIC(Bilateral) LAPAROSCOPIC(Bilateral) Comments Last Modified By: Barrett RN, Nazia Hyde RN, Nazia Phillip 06/26/20 14:36:36 06/26/20 14:36:36 Perioperative Protocols [...] Given Participants Ludivina GARDNER MD, Crosby RN, Ernesto Remy Rachel L, Alva GUTIERREZ, MARYJANEORWagner Time Out Complete 06/26/20 14:01:00 Outcomes Met? [...] and tissue Entry 1 Skin Integrity Intact, [place], Warm, and Skin Abnormality No Dry Outcomes [...] positioning En (more content not included)... [facility] [place] Coding Summary.on 06-29-2020 Coding Summary. CODING DATE: FINAL [facility] STATUS: Home (Routine DC) PAYOR: Medicaid EAPG DESCRIPTION 0999 UNASSIGNED ADMIT DX: REASON FOR VISIT DX: Z30.2 Encounter for sterilization FINAL DX: PRINCIPAL: Z30.2 Encounter for sterilization SECONDARY: PYMT PROC EAPG STAT DESCRIPTION DOCTOR NAME DATE 59192 Laparoscopy, surgical; Ludivina GARDNER MD 06/26/2020 with removal of adnexal structures (partial or total oophorectomy and/or salpingectomy) 73340 Anesthesia for Milligan Jr. DO, Wilfred 06/26/2020 intraperitoneal procedures in lower abdomen including laparoscopy; not otherwise specified NOTE: The code number assigned matches the documented diagnosis and / or procedure in the patient's chart. However, the narrative phrase printed from the coding software may appear abbreviated, or result in slightly different terminology. Coded By: Kelly Leal Date Saved: 06/29/2020 09:41 pm [facility] [place] Coding Summary. CODING DATE: FINAL [facility] STATUS: Home (Routine DC) PAYOR: Medicaid EA DESCRIPTION 0999 UNASSIGNED ADMIT DX: REASON FOR VISIT DX: Z30.2 Encounter for sterilization FINAL DX: PRINCIPAL: Z30.2 Encounter for sterilization SECONDARY: PYMT PROC EAPG STAT DESCRIPTION DOCTOR NAME DATE 93720 Laparoscopy, surgical; Ludivina GARDNER MD 06/26/2020 with removal of adnexal structures (partial or total oophorectomy and/or salpingectomy) 87761 Anesthesia for Milligan Jr. DO, Wilfred 06/26/2020 intraperitoneal procedures in lower abdomen including laparoscopy; not otherwise specified NOTE: The code number assigned matches the documented diagnosis and / or procedure in the patient's chart. However, the narrative phrase printed from the coding software may appear abbreviated, or result in slightly different terminology. Revised Coded By: Kelly Leal Revised Date Saved: 06/29/2020 09:41 pm [facility] [place] 06-28-2020 Consent [id number] :127 [facility] Postoperative Documentson Postoperative Documents [id number]#1.00CD :127 [facility] [place] 06-27-2020 Consent [id number]#1.00CD: 127 [facility] Consent for Anesthesiaon Consent for Anesthesia [id number]#1.00CD: 127 [facility] Consent for Procedure/Surger yon 06-27-2020 Consent for Procedure/Surgery [id number]#1.00CD: 127 [facility] Discharge Instructionson Discharge Instructions [id number]#1.00CD: 127 [facility] H&P Updateon 06-27-2020 H&P Update [id number]#1.00CD: 127 [facility] IntraOperative Documentson 0 06-27-2020 IntraOperative Documents [id number]#1.00CD: 127 [facility] IntraOperative Documents [id number]#1.00CD: 127 [facility] Preoperative Documentson Preoperative Documents [id number]#1.00CD: 127 [facility] [place] Consent for Treatmenton Consent for Treatment [id number]#1.00CD: 127 Normal [place] Inpatient Patient Summaryon 06-26-2020 Inpatient Patient Summary [address] [address] [facility] Clinical Discharge Instructions PERSON INFORMATION Name: FEMI KRAMER PHYSICIANS Admitting Physician: Ludivina GARDNER MD Attending Physician: Ludivina GARDNER MD PCP: GIULIANA MCKEE DO Discharge Diagnosis: Encounter for female sterilization procedure Comment: PATIENT EDUCATION INFORMATION Instructions: Post Op Patient Instructions - FT (Custom) Medication Leaflets: Follow up: With: Address: When: Ludivina GARDNER [address] [place] [address] In 2 weeks 07/10/2020 Comments: already scheduled Type Location Start [facility] 07/09/2020 10:30 AM 07/09/2020 11:00 AM Confirmed MEDICATION LIST New Medications [facility] [address] [place] [address], [phone] acetaminophen-oxycodone (Percocet 325 mg-5 mg Tab) 1 [...] 4 hours as needed Pain/Fever. Comment: [facility] [place] Main OR PACU I [facility] Main OR PACU I Record PACU Phase I Docum ent Type FT Summary Primary Physician: Ludivina GARDNER MD Finalized Date/Time: 06/26/20 16:16:53 Pt. Name: FEMI KRAMER Leola CollierB./Sex: 1995 Female Med Rec #: [id number] Physician: Ludivina GARDNER MD Financial #: [id number] Pt. Type: A Room/Bed: Admit/Disch: 06/26/20 11:11:26 [...] By: Giovanna Plunkett RN 06/26/20 16:16 [facility] [place] Main OR PACU II [facility] Main OR PACU II Record PACU Phase II Document Type FT Summary Primary Physician: Ludivina GARDNER MD Finalized Date/Time: 06/26/20 18:39:38 Pt. Name: FEMI KRAMER/Sex: 1995 Female Med Rec #: [id number] Physician: Ludivina GARDNER MD Financial #: [id number] Pt. Type: A Room/Bed: Admit/Disch: 06/26/20 11:11:26 [...] By: Evangelina Juarez RN 06/26/20 18:39 [facility] [place] Main OR Preoperative Recordo n 06-26-2020 Main OR Preoperative Record PreOp Document Type FT Summary Primary Physician: Ludivina GARDNER MD Finalized Date/Time: 06/26/20 14:11:47 Pt. Name: FEMI KRAMER/Sex: 1995 Female Med Rec #: [id number] Physician: Ludivina GARDNER MD Financial #: [id number] Pt. Type: A Room/Bed: 02/19 Admit/Disch: 06/26/20 11:11:26 - Institution: Case Times [...] By: Nazia Hyde RN 06/26/20 14:11 Normal [place] Monitor [facility] 06-26-2020 Monitor Record [id number]#1.00CD :127 Normal [place] Operative Reporton Operative Report Patient: MÓNICA KRAMER Age: 24 years Sex: Female : 1995 Associated Diagnoses: None Author: Ludivina GARDNER MD Postoperative Information Procedure: Laparoscopic bilateral salpingectomy Date/ Time: 06/26/2020 14:36:00 Preoperative Diagnosis: Encounter for female sterilization procedure (AQG30-WQ Z30.2, Discharge, Medical). Postoperative Diagnosis: same. Performed [...] counts were correct x2. Ludivina Gardner MD [facility] Comment on above: Result Comment: Elec tronically Signed By: Ludivina GARDNER MD\.br\Date and Time Signed: 06/26/20 14:40 EST Outpatient Surgery Discharge Instructionon 06-26-2020 Outpatient Surgery Discharge Instruction [place] [id number] Patient Discharge Instructions PERSON INFORMATION Name: FEMI [...] THE NEAREST EMERGENCY ROOM OR CALL 911 INIA SUMMER R, have received the attached patient education materials/instructions and have verbalized understanding: May we do a follow up call? Yes No I was present when discharge instructions were given Patient Signature Date Clinican/Nurse Signature Date Follow up: With: Address: When: Ludivina GARDNER [address] [place] [address] In 2 weeks 07/10/2020 Comments: already scheduled Type Location Start Finish State [facility] [place] 07/09/2020 10:30 AM 07/09/2020 11:00 AM Confirmed Pharmacy Information: Other: [facility] You may receive a survey from [employer] asking you to rate your care experience. Your feedback is important and will help us understand what we do well and how we can improve the quality of care we provide to you, your loved ones and our community. It?s an honor to serve you. Thank you for choosing [facility] HERE ARE THE MEDICATION CHANGES THAT OCCURRED DURING YOUR HOSPITAL STAY New Medications [facility] [address] [place] [address], [phone] acetaminophen-oxycodone (Percocet 325 mg-5 mg Tab) 1 [...] needed Pain/Fever. PATIENT EDUCATION INFORMATION Instructions: Normal [place] Patient Education - Texton 0 06-26-2020 Patient Education - Text Normal [place] Progress Note-Physicianon Progress Note-Physician Patient: FEMI KRAMER Age: 24 years Sex: Female : 1995 Associated Diagnoses: None Author: Wilfred Milligan Jr., DO Postoperative Information Post Operative Note: Post Anesthesia Care Unit. Anesthetic utilized: General. Health Status Allergies: Allergic Reactions (Selected) No Known Allergies Problem list: All Problems Supervision of normal in third trimester / SNOMED CT 920571646 / Confirmed Encounter for sterilization / SNOMED CT 911861128 / Confirmed Resolved: Depression during , antepartum / SNOMED CT 3881918912 Resolved: Genital herpes simplex virus (HSV) infection in mother affecting / SNOMED CT 1110945408 Resolved: / SNOMED CT 637718544 Resolved: / SNOMED CT 778666138 need for PA Canceled: Supervision of normal in second trimester / SNOMED CT 184986237 Physical Examination Vital Signs 06/26/2020 15:05 EST [...] noted. Plan Transfer/ Discharge: Condition stable. Normal [place] Comment on above: Result Comment: Elec tronically [...] Refills(s) 0 Histories Past Medical History: Resolved (233029137): Onset on 08/30/2019 at 24 years. Resolved on 05/29/2020 at 24 years. Comments: 06/17/2020 EST 16:11 EST - Summer Oakes LPN need for PA (615029549): Onset on 07/27/2016 at 20 years. Resolved on 04/12/2017 at 21 years. Genital herpes simplex virus (HSV) infection in mother affecting (6371422172): Resolved. Depression during , antepartum (2530213826): Resolved. Family History: Hypertension Grandparent Diabetes mellitus type 1 Grandparent Procedure history: Tonsillectomy (653607983). 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 Plan [place] [employer] Anesthesiologists (ASA) physical status classification: Class II. Anesthetic Preoperative Plan Anesthesia: General. . Anesthetic plan, risks, benefits, and alternatives discussed with the patient and/or family. Patient verbalized understanding. Adverse reactions, complications, and alternatives discujssed. Consent signed and on chart.. [facility] Comment on above: Result Comment: Elec tronically Signed By: Wilfred Milligan Jr., DO\.portillo\Date and Time Signed: 06/26/20 12:48 EST Nursing Assessmenton Nursing Assessment [id number]#1.00CD: 127 Normal [place] Coding Summary.on 06-22-2020 Coding Summary. CODING DATE: FINAL [facility] STATUS: Home (Routine DC) PAYOR: [...] Jackie Mccartney Date Saved: 06/22/2020 02:45 pm [facility] Formson 06-20-2020 Forms [id number]#1.00CD: 127 [facility] Priority Order-Wilmar 2019 Priority Order-STAT Comment Invalid Interpretation Code [place] Comment on above: Result Comment: Rece ived Performed at: [facility] [address] [facility], [place] [id number] MD Gene Rae Performed By: #### S ARS-CoV-2, TASNEEM, [id number] #### [place] [facility] [address] [place] [address] SARS-CoV-2, NAAon 06-20-2020 SARS-CoV-2 (COVID-19) RNA TASNEEM+probe Ql (Resp) Not detected Invalid Interpretation Code Not Detected [place] Comment on above: Result Comment: This nucleic acid amplification test was developed and its performance characteristics determined by [employer]. Nucleic acid amplification tests include PCR and [...] detected) result in this assay. Performed at: [facility] [address] [facility] [place] [id number] MD Gene Rae Performed By: #### S ARS-CoV-2, TASNEEM, [id number] #### [place] [facility] [address] [place] [address] Coding Summary.on 06-19-2020 Coding Summary. CODING DATE: 020 [facility] STATUS: Home (Routine DC) PAYOR: Medicaid [...] CphT Date Saved: 06/19/2020 04:53 pm Normal [place] B hCG Qualon 06-18-2020 Beta hCG Ql Negative Normal [place] Comment on above: Order Comment: unles s history of hysterectomy Performed By: #### 2 [id number], [id number] #### [place] [facility] [address] [place] [address] CBC w/Indiceson 06-18-2020 Erythrocyte distribution width (RBC) [Ratio] 11.8 % Normal 10.9-14.2 [place] Comment on above: Performed By: #### 2 [id number], [id number] #### [place] [facility] [address] [place] [address] Hematocrit (Bld) [Volume fraction] 45.2 % Normal 34.0-46.0 [place] Comment on above: Performed By: #### 2 [id number], [id number] #### [place] [facility] [address] [place] [address] Hemoglobin (Bld) [Mass/Vol] 15.0 g/dL Normal 12.0-16.0 [place] Comment on above: Performed By: #### 2 [id number], [id number] #### [place] [facility] [address] [place] [address] MCH (RBC) [Entitic mass] 31.0 pg Normal 27.0-34.0 [place] Comment on above: Performed By: #### 2 [id number], [id number] #### [place] [facility] [address] [place] [address] MCHC (RBC) [Mass/Vol] 33.2 g/dL Normal 31.4-36.0 [facility] Comment on above: Performed By: #### 2 1331802, [id number] #### [place] [facility] [address] [place] [address] MCV (RBC) [Entitic vol] 93.3 fL Normal 80.0-100.0 [place] Comment on above: Performed By: #### 2 9124977, [id number] #### [place] [facility] [address] [place] [address] Platelet mean volume (Bld) [Entitic vol] 8.7 fL Normal 6.4-10.8 [place] Comment on above: Performed By: #### 2 [id number], [id number] #### [place] [facility] [address] [place] [address] Platelets (Bld) [#/Vol] 184.0 E9/L Normal 150.0-500.0 [place] Comment on above: Performed By: #### 2 [id number], 0473551 #### [place] [facility] [address] [place] [address] RBC (Bld) [#/Vol] 4.8 E12/L Normal 4.3-5.9 [place] Comment on above: Performed By: #### 2 [id number], [id number] #### [place] [facility] [address] [place] [address] WBC corrected for nucl RBC Auto (Bld) [#/Vol] 5.0 E9/L Normal 4.0-11.0 [place] Comment on above: Performed By: #### 2 [id number], [id number] #### [place] [facility] [address] [place] [address] Consent for Treatmenton 05-22 Consent for Treatment [id number]#1.00CD: 127 Normal [place] H&P Updateon 06-18-2020 H&P Update [id number]#1.00CD :127 Normal [place] Pre-Certification Formon Pre-Certification Form [id number]#1.00CD: 127 Normal [place] Consent for Procedure/Surger yon 06-06-2020 Consent for Procedure/Surgery [id number]#1.00CD: 127 Normal [place] Physician Orderon 06-06-2020 Physician Order [id number]#1.00CD: 127 Normal [place] Physician Orderon 06-05-2020 Physician Order [id number]#1.00CD: 127 Normal [place] Coding Summary.on 06-02-2020 Coding Summary. CODING DATE: 020 FINAL [facility] DSC STATUS: Home (Routine DC) PAYOR: [...] Ludivina GARDNER MD 05/29/2020 Conception, External Approach [id number] Introduction of Hernando Matos JR, DO 05/29/2020 Anti-inflammatory into Spinal Canal, Percutaneous Approach [id number] Introduction of Anesthetic Hernando Matos JR, DO 05/29/2020 Agent into Spinal Canal, Percutaneous Approach [id number] Drainage of Amniotic Fluid, Ludivina GARDNER MD 05/29/2020 Therapeutic from Products of Conception, Via Natural or Artificial Opening NOTE: The code number assigned matches the documented diagnosis and / or procedure in the patient's chart. However, the narrative phrase printed from the coding software may appear abbreviated, or result in slightly different terminology. Coded By: Jackie Mccartney Date Saved: 06/02/2020 05:00 pm Normal [place] Discharge Instructionson Discharge Instructions [id number]#1.00CD :127 Normal [place] Inpatient Clinical Summaryon 05-31-2020 Inpatient Clinical Summary [place] [id number] Clinical Summary Person Information Name: FEMI KRAMER/[place] Age: 24 Years : 1995 Sex: Female PCP: GIULIANA MCKEE DO Marital Status: Single Race: White Ethnicity: Non- or Language: Lithuanian Visit Id: Visit Reason: Speciality: Acuity: 2 PP Enc Type: Inpatient Med Service: Obstetrics Arrival: 05/29/2020 06:52:16 Discharge: 05/31/2020 13:15:00 Dispo Type: Home (Routine DC) Address: [address] [facility] [id number] Provider Notes: Patient: FEMI KRAMER Age: 24 [...] EST benzocaine-menthol 20%-0.5% topical spray: 1 spray(s), [place], Topical, q4hr PRN Pain, Routine, Start date [...] Gas, Routine, Start date 05/29/20 15:37:00 EST witfrancesca jose rectal 50% pad: 1 ubaldo, Pad, Topical, q4hr PRN Other (see comment), Routine, Start date 05/29/20 15:37:00 EST zolpidem 5 mg Tab: 5 mg = 1 tab(s), Tab, Oral, Bedtime PRN Sleep for 7 day(s), Stop date 06/05/20 15:36:00 EST, Routine, Start date 05/29/20 15:37:00 EST Prescriptions Prescribed PNV oral tablet: 1 tab(s), Oral, Daily, 90 tab(s), Refill(s) 4, ANY VITAMIN, [facility], 163, cm, 11/07/19 8:38:00 EDT, Height/Length Measured, 71.9, kg, 11/07/19 8:38:00 EDT, Weight Measured valacyclovir 500 mg Tab: 500 mg = 1 tab(s), Oral, q12hr, # 30 tab(s), Refills(s) 1, Pharmacy: [facility], 163, cm, 04/25/20 11:47:00 EST, Height/Length Dosing, 78.1, kg, 04/25/20 11:47:00 EST, Weight Dosing Physical Examination Vital Signs 05/30/2020 20:16 EST Temperature Oral 36.5 DegC Heart Rate Monitored 67 bpm Systolic Blood Pressure 116 mmHg Diastolic Blood Pressure 68 mmHg Mean (more content not included)... Normal [place] Inpatient Patient Summaryon 05-31-2020 Inpatient Patient Summary [place] [id number] Patient Discharge Instructions PERSON INFORMATION Name: FEMI KRAMER Date of : 1995 Current Date: 05/31/2020 13:26:12 PHYSICIANS Admitting Physician: TAWANDA SARMIENTO, Ludivina Phillip Primary Care Physician: GIULIANA MCKEE DO PCP [...] a nearby participating provider. Type Location Start [facility] [place] 07/09/2020 10:30 AM 07/09/2020 11:00 AM Confirmed Comment: NIA Engle SUMMER R, have received the attached patient education materials/instructions and have verbalized understanding. Patient Signature Date Clinican/Nurse Signature Date MEDICATION LIST Medications to Continue with No Changes Other Medications multivitamin, (PNV oral tablet) 1 Tablets By Mouth every day. ANY VITAMIN. Refills: 4. Last Dose: _Next Dose: _ valacyclovir (valacyclovir 500 mg Tab) 1 Tablets By Mouth every 12 hours. Refills: 1. Last Dose: _Next Dose: _ Pharmacy Information: Other: [facility] [place] PATIENT EDUCATION INFORMATION Instructions: Medication Leaflets: Thank you for choosing [facility] Normal [place] Progress Note-Physicianon Progress Note-Physician Patient: FEMI KRAMER [...] EST benzocaine-menthol 20%-0.5% topical spray: 1 spray(s), [place], Topical, q4hr PRN Pain, Routine, Start date [...] Daily, 90 tab(s), Refill(s) 4, ANY VITAMIN, [facility], 163, cm, 11/07/19 8:38:00 EDT, Height/Length Measured, 71.9, kg, 11/07/19 8:38:00 EDT, Weight Measured valacyclovir 500 mg Tab: 500 mg = 1 tab(s), Oral, q12hr, # 30 tab(s), Refills(s) 1, Pharmacy: [facility], 163, cm, 04/25/20 11:47:00 EST, Height/Length Dosing, 78.1, kg, 04/25/20 11:47:00 EST, Weight Dosing Problem list: All Problems Supervision of normal in third trimester / SNOMED CT 359473970 / Confirmed Depression during , antepartum / SNOMED CT 6280445709 / Confirmed Genital herpes simplex virus (HSV) infection in mother affecting / SNOMED CT 0942028138 / Confirmed Resolved: / SNOMED CT 630415294 Resolved: / SNOMED CT 297180000 Canceled: Supervision of normal in second trimester / SNOMED CT 573281717 Physical Examination VSS, Epidural catheter removed intact, [...] 0 . Respiratory: Adequate air exchange with hoahaoism of preoperative function.. Cardiovascular: Cardiovascular function is stable and has returned to preoperative levels.. Neurologic: Pt. has returned to preoperative baseline.. Assessment Anesthetic outcome No anesthetic complications noted. Plan Transfer/ Discharge: Patient can be discharged from anesthesia care. Condition good. Normal [place] Comment on above: Result Comment: Elec tronically Signed By: Hernando Matos JR, DO\Date and Time Signed: 05/31/20 09:12 EST Progress [...] Daily, 90 tab(s), Refill(s) 4, ANY VITAMIN, [facility], 163, cm, 11/07/19 8:38:00 EDT, Height/Length Measured, 71.9, kg, 11/07/19 8:38:00 EDT, Weight Measured valacyclovir 500 mg Tab: 500 mg = 1 tab(s), Oral, q12hr, # 30 tab(s), Refills(s) 1, Pharmacy: [facility], 163, cm, 04/25/20 11:47:00 EST, Height/Length Dosing, 78.1, kg, 04/25/20 11:47:00 EST, Weight Dosing Problem list: All Problems Supervision of normal in third trimester / SNOMED CT 085966516 / Confirmed Depression during , antepartum / SNOMED CT 2537045518 / Confirmed Genital herpes simplex virus (HSV) infection in mother affecting / SNOMED CT 2695955426 / Confirmed / SNOMED CT 895129909 / Confirmed Resolved: / SNOMED CT 739743920 Canceled: Supervision of normal in second trimester / SNOMED CT 495110302 Physical Examination VSS, Epidural catheter removed intact, Lumbar area site nontender, no erythema Intake and Output Pt. denies significant n/v, and is tolerating p.o. Vital Signs (last 24 hrs) Last Charted Temp Oral 36.6 DegC (MAY 29:) SBP 133 mmHg (MAY 29:) DBP 82 mmHg (MAY 29:) Weight 76.6 kg (MAY 29:40) Height 162.5 cm (MAY 29:40) BMI 29.01 (MAY 29:) Pain assessment: Pain Assessment 05/29/2020 7:40 EST Numeric Pain Scale 0 = No pain Numeric Pain Score 0 . Respiratory: Adequate air exchange with hoahaoism of preoperative function.. Cardiovascular: Cardiovascular function is stable and has returned to preoperative levels.. Neurologic: Pt. has returned to preoperative baseline.. Assessment Anesthetic outcome No anesthetic complications noted. Plan Transfer/ Discharge: Patient can be discharged from anesthesia care. Condition good. Normal [place] Comment on above: Result Comment: Elec tronically Signed By: Hernando Maots JR, DO CBC w/Indiceson 05-30-2020 Erythrocyte distribution width (RBC) [Ratio] 12.3 % Normal 10.9-14.2 [place] Comment on above: Performed By: #### 2 [id number] #### [facility] [address] [place] [address] Hematocrit (Bld) [Volume fraction] 38.9 % Normal 34.0-46.0 [place] Comment on above: Performed By: #### 2 [id number] #### [place] [facility] [address] [place] [address] Hemoglobin (Bld) [Mass/Vol] 13.9 g/dL Normal 12.0-16.0 [facility] Comment on above: Performed By: #### 2 [id number] #### [facility] [address] [place] [address] MCH (RBC) [Entitic mass] 33.0 pg Normal 27.0-34.0 [facility] Comment on above: Performed By: #### 2 [id number] #### [facility] [address] [place] [address] MCHC (RBC) [Mass/Vol] 35.7 g/dL Normal 31.4-36.0 [facility] Comment on above: Performed By: #### 2 [id number] #### [facility] [address] [place] [address] MCV (RBC) [Entitic vol] 92.3 fL Normal 80.0-100.0 [facility] Comment on above: Performed By: #### 2 [id number] #### [facility] [address] [place] [address] Platelet mean volume (Bld) [Entitic vol] 9.9 fL Normal 6.4-10.8 [facility] Comment on above: Performed By: #### 2 [id number] #### [facility] [address] [place] [address] Platelets (Bld) [#/Vol] 155.0 E9/L Normal 150.0-500.0 [facility] Comment on above: Performed By: #### 2 [id number] #### [facility] [address] [place] [address] RBC (Bld) [#/Vol] 4.2 E12/L Low 4.3-5.9 [facility] Comment on above: Performed By: #### 2 [id number] #### [facility] [address] [place] [address] WBC corrected for nucl RBC Auto (Bld) [#/Vol] 11.2 E9/L High 4.0-11.0 [facility] Comment on above: Performed By: #### 2 [id number] #### [facility] [address] [place] [address] Progress Note-Physicianon Progress Note-Physician Patient: FMEI KRAMER Age: 24 years Sex: Female : [...] EST benzocaine-menthol 20%-0.5% topical spray: 1 spray(s), [place], Topical, q4hr PRN Pain, Routine, Start date [...] Daily, 90 tab(s), Refill(s) 4, ANY VITAMIN, [facility] 320, 163, cm, 11/07/19 8:38:00 EDT, Height/Length Measured, 71.9, kg, 11/07/19 8:38:00 EDT, Weight Measured valacyclovir 500 mg Tab: 500 mg = 1 tab(s), Oral, q12hr, # 30 tab(s), Refills(s) 1, Pharmacy: [facility] 320, 163, cm, 04/25/20 11:47:00 EST, Height/Length [...] 3. Anticipate (more content not included)... Normal [facility] Comment on above: Result Comment: Elec tronically [...] EST benzocaine-menthol 20%-0.5% topical spray: 1 spray(s), [place], Topical, q4hr PRN Pain, Routine, Start date [...] Daily, 90 tab(s), Refill(s) 4, ANY VITAMIN, [facility] 320, 163, cm, 11/07/19 8:38:00 EDT, Height/Length Measured, 71.9, kg, 11/07/19 8:38:00 EDT, Weight Measured valacyclovir 500 mg Tab: 500 mg = 1 tab(s), Oral, q12hr, # 30 tab(s), Refills(s) 1, Pharmacy: [facility] 320, 163, cm, 04/25/20 11:47:00 EST, Height/Length [...] Anticipate d/c tomorrow. Ludivina Gardner MD Normal [facility] Comment on above: Result Comment: Elec tronically Signed By: TAWANDA SARMIENTO, Ludivina J\.br\Date and Time Signed: 05/30/20 17:55 EST ABO/Rhon 05-29-2020 ABO/Rh Positive Invalid Interpretation Code [facility] Comment on above: Performed By: #### 1 [id number], [id number], [id number], [id number] ####[facility] [address] [place] [address] ABO/Rh History Checkon 05-29 ABO/Rh History Check Verified Hx Blood Type Normal [facility] Comment on above: Performed By: #### 1 [id number], [id number], [id number], [id number] ####[facility] [address] [place] [address] ABSCon 05-29-2020 ABSC Gel Interp Negative Normal [facility] Comment on above: Performed By: #### 1 [id number], [id number], [id number], [id number] ####[facility] [address] [place] [address] Blood Bank ID#on 05-29-2020 BBID# [id number] Invalid Interpretation Code [facility] Comment on above: Performed By: #### 1 [id number], [id number], [id number], [id number] ####[facility] [address] [place] [address] CBC w/Indiceson 05-29-2020 Erythrocyte distribution width (RBC) [Ratio] 12.6 % Normal 10.9-14.2 [facility] Comment on above: Performed By: #### 2 [id number] #### [facility] [address] [place] [address] Hematocrit (Bld) [Volume fraction] 41.6 % Normal 34.0-46.0 [facility] Comment on above: Performed By: #### 2 394750 #### [facility] [address] [place] [address] Hemoglobin (Bld) [Mass/Vol] 14.4 g/dL Normal 12.0-16.0 [facility] Comment on above: Performed By: #### 2 [id number] #### [facility] [address] [place] [address] MCH (RBC) [Entitic mass] 32.3 pg Normal 27.0-34.0 [facility] Comment on above: Performed By: #### 2 469265 #### [facility] [address] [place] [address] MCHC (RBC) [Mass/Vol] 34.6 g/dL Normal 31.4-36.0 [facility] Comment on above: Performed By: #### 2 376870 #### [facility] [address] [place] [address] MCV (RBC) [Entitic vol] 93.5 fL Normal 80.0-100.0 [facility] Comment on above: Performed By: #### 2 [id number] #### [facility] [address] [place] [address] Platelet mean volume (Bld) [Entitic vol] 10.1 fL Normal 6.4-10.8 [facility] Comment on above: Performed By: #### 2 752381 #### [facility] [address] [place] [address] Platelets (Bld) [#/Vol] 191.0 E9/L Normal 150.0-500.0 [facility] Comment on above: Performed By: #### 2 [id number] #### [facility] [address] [place] [address] RBC (Bld) [#/Vol] 4.4 E12/L Normal 4.3-5.9 [facility] Comment on above: Performed By: #### 2 711179 #### [facility] [address] [place] [address] WBC corrected for nucl RBC Auto (Bld) [#/Vol] 9.8 E9/L Normal 4.0-11.0 [facility] Comment on above: Performed By: #### 2 [id number] #### [facility] [address] [place] [address] Consenton 05-29-2020 Consent [id number] :127 Normal [facility] Consent for Procedure/Surger yon 05-29-2020 Consent for Procedure/Surgery [id number]#1.00CD: 127 Normal [facility] Consent for Procedure/Surgery [id number]#1.00CD: 127 Normal [facility] Consent for Treatmenton Consent for Treatment [id number]#1.00CD :127 Normal [facility] Consent for Treatment [id number]#1.00CD :127 Normal [facility] Delivery Summaryon 0 Delivery Summary Patient: MÓNICA [...] reduced after delivery of body. Status of infant Viable Gender: male. Apgars: 7 at one [...] Stable. Maternal condition: Stable. Ludivina Gardner MD [facility] Comment on above: Result Comment: Elec tronically Signed By: TAWANDA SARMIENTO, Ludivina Phillip\.br\Date and Time Signed: 05/29/20 17:01 EST Discharge Instructionson Discharge Instructions [id number]#1.00CD: 127 [facility] Help Me Grow Referralon Help Me Grow Referral [id number]#1.00CD: 127 [facility] Progress Note-Physicianon Progress Note-Physician Patient: FEMI KRAMER [...] Daily, 90 tab(s), Refill(s) 4, ANY VITAMIN, [facility], 163, cm, 11/07/19 8:38:00 EDT, Height/Length Measured, 71.9, kg, 11/07/19 8:38:00 EDT, Weight Measured valacyclovir 500 mg Tab: 500 mg = 1 tab(s), Oral, q12hr, # 30 tab(s), Refills(s) 1, Pharmacy: [facility], 163, cm, 04/25/20 11:47:00 EST, Height/Length Dosing, 78.1, kg, 04/25/20 11:47:00 EST, Weight Dosing Problem list: All Problems Supervision of normal in third trimester / SNOMED CT 786375619 / Confirmed Depression during , antepartum / SNOMED CT 1874107797 / Confirmed Genital herpes simplex virus (HSV) infection in mother affecting / SNOMED CT 4915373101 / Confirmed / SNOMED CT 717678178 / Confirmed Resolved: / SNOMED CT 862559031 Canceled: Supervision of normal in second trimester / SNOMED CT 127820341 Histories Past Medical History: Resolved ([id number]): Onset on 07/27/2016 at 20 years. Resolved on 04/12/2017 at 21 years. Family History: Hypertension Grandparent Diabetes mellitus type 1 Grandparent Procedure history: Tonsillectomy (488574596). 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 Physical Examination Vital Signs (last 24 hrs) Last Charted Temp Oral 36.6 DegC (MAY 29 07:30) SBP 133 mmHg (MAY 29:30) DBP 82 mmHg (MAY 29:30) Weight 76.6 kg (MAY 29 07:40) Height 1 (more content not included)... [facility] Comment on above: Result Comment: Elec tronically [...] INTRAVASCULAR OR INTRATHECAL INJECTION, THEN AN EPIDURAL WOOD HACKER WAS INITIATED AND MAINTAINED AT 10 ML/HR. INFUSION TO BE DISCONTINUED AT THE BLANKET FOLDER'S REQUEST.. Procedure tolerated: well. Complications: NO APPARENT COMPLICATIONS AT THE END OF THE PROCEDURE. 12S/ 5S Impression and Plan [facility] Comment on above: Result Comment: Elec tronically Signed By: Hernando Matos JR, DO.portillo\Date and Time Signed: 05/29/20 10:56 EST UA With Cult Reflexon 2019 Bacteria LM Ql (Urine sed) TRACE Normal Trace [facility] Comment on above: Order Comment: Urina ry Catheter Insertion triggered Urinalysis With Culture Reflex order by discern. Performed By: #### 1 [id number] ####[facility] [address] [place] [address] Bilirubin Ql (U) Negative Normal Negative [facility] Comment on above: Order Comment: Urina ry Catheter Insertion triggered Urinalysis With Culture Reflex order by discern. Performed By: #### 1 [id number] ####[facility] [address] [place] [address] Clarity (U) CLEAR Normal Clear [facility] Comment on above: Order Comment: Urina ry Catheter Insertion triggered Urinalysis With Culture Reflex order by discern. Performed By: #### 1 [id number] ####[facility] [address] [place] [address] Color (U) YELLOW Normal Yellow [facility] Comment on above: Order Comment: Urina ry Catheter Insertion triggered Urinalysis With Culture Reflex order by discern. Performed By: #### 1 2194072 ####[facility] [address] [place] [address] Epithelial cells.squamous LM.HPF (Urine sed) [#/Area] 0-2 Normal 0-2 [facility] Comment on above: Order Comment: Urina ry Catheter Insertion triggered Urinalysis With Culture Reflex order by discern. Performed By: #### 1 8628571 ####[facility] [address] [place] [address] Glucose Test strip (U) [Mass/Vol] Negative Normal Negative [facility] Comment on above: Order Comment: Urina ry Catheter Insertion triggered Urinalysis With Culture Reflex order by discern. Performed By: #### 1 [id number] ####[facility] [address] [place] [address] Hemoglobin Ql (U) TRACE Abnormal Negative [facility] Comment on above: Order Comment: Urina ry Catheter Insertion triggered Urinalysis With Culture Reflex order by discern. Performed By: #### 1 7499722 ####[address] [address] Ketones (U) [Mass/Vol] Negative Normal Negative [facility] Comment on above: Order Comment: Urina ry Catheter Insertion triggered Urinalysis With Culture Reflex order by discern. Performed By: #### 1 [id number] ####[address] [address] [place].plasma/Lithiu m.RBC (Bld) [Mass ratio] 0-3 Normal 0-3 [facility] Comment on above: Order Comment: Urina ry Catheter Insertion triggered Urinalysis With Culture Reflex order by discern. Performed By: #### 1 [id number] ####[address] [address] Nitrite Ql (U) Negative Normal Negative [facility] Comment on above: Order Comment: Urina ry Catheter Insertion triggered Urinalysis With Culture Reflex order by discern. Performed By: #### 1 0877208 ####[address] [address] pH (U) 7.0 [pH] Invalid Interpretation Code 5.0-9.0 [facility] Comment on above: Order Comment: Urina ry Catheter Insertion triggered Urinalysis With Culture Reflex order by discern. Performed By: #### 1 [id number] ####[address] [address] Protein (U) [Mass/Vol] Negative Normal Negative [facility] Comment on above: Order Comment: Urina ry Catheter Insertion triggered Urinalysis With Culture Reflex order by discern. Performed By: #### 1 6576070 ####[address] [address] Specific gravity (U) [Rel density] 1.015 Invalid Interpretation Code 1.005-1.030 [facility] Comment on above: Order Comment: Urina ry Catheter Insertion triggered Urinalysis With Culture Reflex order by discern. Performed By: #### 1 [id number] ####[facility] [address] [place] [address] UA Spec Desc Romero Normal [facility] Comment on above: Order Comment: Urina ry Catheter Insertion triggered Urinalysis With Culture Reflex order by discern. Performed By: #### 1 [id number] ####[facility] [address] [place] [address] Urobilinogen Qn (U) 0.2 {Damien'U}/dL Normal 0.0-1.0 [facility] Comment on above: Order Comment: Urina ry Catheter Insertion triggered Urinalysis With Culture Reflex order by discern. Performed By: #### 1 3613132 ####[facility] [address] [place] [address] WBC Auto Ql (U) Negative Normal Negative [facility] Comment on above: Order Comment: Urina ry Catheter Insertion triggered Urinalysis With Culture Reflex order by discern. Performed By: #### 1 [id number] ####[facility] [address] [place] [address] WBC LM.HPF (Urine sed) [#/Area] 0-5 Normal 0-5 [facility] Comment on above: Order Comment: Urina ry Catheter Insertion triggered Urinalysis With Culture Reflex order by discern. Performed By: #### 1 2681400 ####[facility] [address] [place] [address] Vaccinationson 05-29-2020 Vaccinations [id number]#1.00CD :127 Normal [facility] Vaccinations [id number]#1.00CD :127 Normal [facility] Coding Summary.on 05-25-2020 Coding Summary. CODING DATE: 020 FINAL [facility] STATUS: Home (Routine DC) PAYOR: Medicaid EA DESCRIPTION 0397 LEVEL II MICROBIOLOGY TESTS ADMIT [...] Shakila Peter Date Saved: 05/25/2020 05:57 am [facility] Consent for Procedure/Surger yon 05-22-2020 Consent for Procedure/Surgery [id number]#1.00CD :127 [facility] Formson 05-22-2020 Forms [id number]#1.00CD :127 [facility] Ambulatory Clinical Summaryo n 05-21-2020 Ambulatory Clinical Summary {[id number] }CD:[id number] [facility] Obstetrics Office/Clinic Not john 05-21-2020 Obstetrics Office/Clinic Note Chief Complaint OB 37w 6d, baby moving, ROJAS and nausea increase hip and back pain Obstetric History History (0,0,0,1) # 1 Baby 1 Outcome Date: 04/12/2017 Outcome: Live Outcome or Result: Vaginal Gender: Female Gest Age: 37 weeks Wt: 3033 g Hospital: [facility] Labor: -- Child's Name: -- Baby's Father: [...] 05/29 @ 0700. BPP today due to [facility]. 1. Supervision of normal in third trimester (Z34.93: Encounter for supervision of normal , unspecified, third trimester) Ordered: Office Visit Level 4 Est 64635 TH US Biophysical Profile w/o N-Str 2. Genital herpes simplex virus (HSV) infection in mother affecting (O98.319: Other infections with a predominantly sexual mode of transmission complicating , unspecified trimester) Ordered: Office Visit Level 4 Est 74445 TH US Biophysical Profile w/o N-Str 3. Depression during , antepartum (O99.340: Other mental disorders complicating , unspecified trimester) Ordered: Office Visit Level 4 Est 65842 TH US Biophysical Profile w/o N-Str 4. 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 Never Smokeless Tobacco Use:., 05/13/2020 Family History Diabetes mellitus type 1: Grandparent. Hypertension: Grandparent. Lab Results Ambulatory Point of Care Results Glucose Urine Dipstick: Negative (05/21/20 09:40:00) Protein Urine Dipstick: Negative (05/21/20 09:40:00) Normal [facility] Comment on above: Result Comment: Elec tronically Signed By: Ludivina GARDNER MD\.br\Date and Time Signed: 05/21/20 10:57 EST Patient Educationon 05-21-20 Patient Education Score The score is a [...] 09/13/2008 Document Revised: 03/01/2013 Document Reviewed: 09/13/2008 [facility]? Patient Information ?2014 [employer] [facility]. Family Medicine Score The score is a [...] Document Reviewed: 09/13/2008 ExitCare? Patient Information ?2013 [employer]. [facility] Biophysical Profile w/o N-Stron 05-21-2020 Biophysical Profile w/o N-Str Exam Date/Time: 05/21/2020 [...] Total Score out of 8 8 Normal [facility] Ambulatory Clinical Summaryo n 05-13-2020 Ambulatory Clinical Summary {[id number] }CD:[id number] Normal [facility] Obstetrics Office/Clinic Not john 05-13-2020 Obstetrics Office/Clinic Note Chief Complaint OB 36w 5d, baby moving, had cramping and sharp pain down through vagina, GBS done last visit Obstetric History History (0,0,0,1) # 1 Baby 1 Outcome Date: 04/12/2017 Outcome: Live Outcome or Result: Vaginal Gender: Female Gest Age: 37 weeks Wt: 3033 g Hospital: [facility] Labor: -- Child's Name: -- Baby's Father: -- Comment: Paisle EGA and LETY Gestational Age (EGA) and [...] trimester) Ordered: Office Visit Level 4 Est 40527 TH 2. Genital herpes simplex virus (HSV) infection in mother affecting (O98.319: Other infections with a predominantly sexual mode of transmission complicating , unspecified trimester) Ordered: Office Visit Level 4 Est 12684 TH 3. Depression during , antepartum (O99.340: Other mental disorders complicating , unspecified trimester) Ordered: Office Visit Level 4 Est 52505 TH 4. 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 Never Smokeless Tobacco Use:., 05/13/2020 Family History Diabetes mellitus type 1: Grandparent. Hypertension: Grandparent. Lab Results Ambulatory Point of Care Results Glucose Urine Dipstick: Negative (05/13/20 13:18:00) Protein Urine Dipstick: Negative (05/13/20 13:18:00) Normal [facility] Comment on above: Result Comment: Elec tronically [...] Document Reviewed: 09/13/2008 ExitCare? Patient Information ?2013 [employer]. [facility] Follow Upon Follow Up Exam Date/Time: 05/08/2020 09:19 EST [...] 2 Amniotic Fluid Volume High Normal Normal [facility] Group B Strep by PCRon 05-09 Group B Strep by PCR Specimen Negative f or Group B Streptococcus by DNA amplification. Normal Negative [facility] Comment on above: Performed By: #### S ARS-CoV-2, TASNEEM, [id number] #### [facility] [address] [place] [address] Group B Strep colonization by PCR Negative Normal Negative [facility] Comment on above: Performed By: #### S ARS-CoV-2, TASNEEM, [id number] #### [facility] [address] [place] [address] Ambulatory Clinical Summaryo n 05-08-2020 Ambulatory Clinical Summary {[id number] }CD:[id number] Normal [facility] Ambulatory Clinical Summary {[id number] }CD:[id number] Normal [facility] Obstetrics Office/Clinic Not john 05-08-2020 Obstetrics Office/Clinic Note Chief Complaint OB visit 36 weeks, headaches, Ute Carballo, GBS today. Obstetric History History (0,0,0,1) # 1 Baby 1 Outcome Date: 04/12/2017 Outcome: Live Outcome or Result: Vaginal Gender: Female Gest Age: 37 weeks Wt: 3033 g Hospital: [facility] Labor: -- Child's Name: -- Baby's Father: [...] here for appt following growth US. Per key maker: FHR 125, SHANTELLE 19.9, EFW 66%, 6lbs [...] Stable. Ordered: Office Visit Level 3 Est 71173 TH 2. Supervision of normal in third trimester (Z34.93: Encounter for supervision of normal , unspecified, third trimester) Follow up in [address] Gardner. Ordered: Group B Streptococcus colonization by PCR Office Visit Level 3 Est 36203 TH 3. 36 weeks gestation of (Z3A.36: 36 weeks gestation of ) Ordered: Office Visit Level 3 Est 04216 TH 4. Genital herpes simplex virus (HSV) infection in mother affecting (O98.319: Other infections with a predominantly sexual mode of transmission complicating , unspecified trimester) Start on antivirals. 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 Never Smokeless Tobacco Use:., 05/08/2020 Family History Diabetes mellitus type 1: Grandparent. Hypertension: Grandparent. Lab Results Ambulatory Point of Care Results Glucose Urine Dipstick: Negative (05/08/20 08:57:00) Protein Urine Dipstick: Negative (05/08/20 08:57:00) Normal [facility] Comment on above: Result Comment: Elec tronically Signed By: Silvia MURDOCK\.portillo\Date and Time Signed: 05/08/20 10:11 EST Patient Educationon 05-08-20 Patient Education Family Medicine How a Baby [...] Document Reviewed: 11/23/2008 ExitCare? Patient Information ?2013 [employer]. [facility] Ambulatory Clinical Summaryo n 04-25-2020 Ambulatory Clinical Summary {[id number] }CD:[id number] Normal [facility] Obstetrics Office/Clinic Not john 04-25-2020 Obstetrics Office/Clinic Note Chief Complaint OB visit 34 weeks 1 day, Obstetric History History (0,0,0,1) # 1 Baby 1 Outcome Date: 04/12/2017 Outcome: Live Outcome or Result: Vaginal Gender: Female Gest Age: 37 weeks Wt: 3033 g Hospital: [facility] Labor: -- Child's Name: -- Baby's Father: [...] Stable. Ordered: Office Visit Level 3 Est 57806 TH 2. Supervision of normal in third trimester (Z34.93: Encounter for supervision of normal , unspecified, third trimester) Follow up in 2 weeks for appt and growth US. Ordered: Office Visit Level 3 Est 01892 TH Follow Up 3. 34 weeks gestation of (Z3A.34: 34 weeks gestation of ) Ordered: Office Visit Level 3 Est 88854 TH 4. Genital herpes simplex virus (HSV) infection in mother affecting (O98.319: Other infections with a predominantly sexual mode of transmission complicating , unspecified trimester) Plan to start antivirals @ 36 wks. 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 Never Smokeless Tobacco Use:., 04/25/2020 Family History Diabetes mellitus type 1: Grandparent. Hypertension: Grandparent. Lab Results Ambulatory Point of Care Results Glucose Urine Dipstick: Negative (04/25/20 12:04:51) Protein Urine Dipstick: Negative (04/25/20 12:04:51) Normal [place] Comment on above: Result Comment: Elec tronically [...] Document Reviewed: 11/23/2008 ExitCare? Patient Information ?2013 [employer]. Normal [place] US Follow Upon US Follow Up Exam [...] Vertex Amniotic Fluid Volume High Normal Normal [place] Ambulatory Clinical Summaryo n 04-11-2020 Ambulatory Clinical Summary {[id number] }CD:[id number] Normal [place] Obstetrics Office/Clinic Not john 04-11-2020 Obstetrics Office/Clinic Note Chief Complaint OB 32w 1d, baby moving, swelling fingers Obstetric History History (0,0,0,1) # 1 Baby 1 Outcome Date: 04/12/2017 Outcome: Live Outcome or Result: Vaginal Gender: Female Gest Age: 37 weeks Wt: 3033 g Hospital: [facility] Labor: -- Child's Name: -- Baby's Father: [...] trimester) Ordered: Office Visit Level 3 Est 54158 TH 2. Genital herpes simplex virus (HSV) infection in mother affecting (O98.319: Other infections with a predominantly sexual mode of transmission complicating , unspecified trimester) Ordered: Office Visit Level 3 Est 22417 TH 3. Depression during , antepartum (O99.340: Other mental disorders complicating , unspecified trimester) Ordered: Office Visit Level 3 Est 75344 TH 4. 32 weeks gestation of (Z3A.32: 32 weeks gestation of ) Ordered: Office Visit Level 3 Est 86552 TH Follow-up With When Contact Information Ludivina GARDNER MD In [address] [place] [address]- Additional Instructions: Problem List/Past Medical History Ongoing Depression during , antepartum Genital herpes simplex virus (HSV) infection in mother affecting Supervision of normal in third trimester Historical Procedure/Surgical History Tonsillectomy. 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 Never Smokeless Tobacco Use:., 04/11/2020 Family History Diabetes mellitus type 1: Grandparent. Hypertension: Grandparent. Lab Results Ambulatory Point of Care Results Glucose Urine Dipstick: Negative (04/11/20 10:13:00) Protein Urine Dipstick: Negative (04/11/20 10:13:00) Normal [place] Comment on above: Result Comment: Elec tronically [...] Document Reviewed: 11/23/2008 ExitCare? Patient Information ?2013 [employer]. [facility] Ambulatory Clinical Summaryo n 03-28-2020 Ambulatory Clinical Summary {[id number] }CD:[id number] [facility] Obstetrics Office/Clinic Not john 03-28-2020 Obstetrics Office/Clinic Note Chief Complaint OB 30w 1d, baby moving, nausea Obstetric History History (0,0,0,1) # 1 Baby 1 Outcome Date: 04/12/2017 Outcome: Live Outcome or Result: Vaginal Gender: Female Gest Age: 37 weeks Wt: 3033 g Hospital: [facility] Labor: -- Child's Name: -- Baby's Father: [...] trimester) Ordered: Office Visit Level 3 Est 37974 TH 2. Genital herpes simplex virus (HSV) infection in mother affecting (O98.319: Other infections with a predominantly sexual mode of transmission complicating , unspecified trimester) Needs suppression at 36 wks Ordered: Office Visit Level 3 Est 26837 TH 3. Depression during , antepartum (O99.340: Other mental disorders complicating , unspecified trimester) Stable Ordered: Office Visit Level 3 Est 89878 TH 4. 30 weeks gestation of (Z3A.30: 30 weeks gestation of ) Ordered: Office Visit Level 3 Est 79674 TH Follow-up With When Contact Information Ludivina GARDNER MD In [address] [place] [address]- Additional Instructions: Problem List/Past Medical History Ongoing Depression during , antepartum Genital herpes simplex virus (HSV) infection in mother affecting Supervision of normal in third trimester Historical Procedure/Surgical History Tonsillectomy. 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 Never Smokeless Tobacco Use:., 03/28/2020 Family History Diabetes mellitus type 1: Grandparent. Hypertension: Grandparent. Lab Results Ambulatory Point of Care Results Glucose Urine Dipstick: Negative (03/28/20 09:43:00) Protein Urine Dipstick: Negative (03/28/20 09:43:00) Normal [place] Comment on above: Result Comment: Elec tronically [...] Document Reviewed: 11/23/2008 ExitCare? Patient Information ?2013 [employer]. Normal [place] Ambulatory Clinical Summaryo n 02-29-2020 Ambulatory Clinical Summary {[id number] }CD:[id number] Normal [place] Obstetrics Office/Clinic Not john 02-29-2020 Obstetrics Office/Clinic Note Chief Complaint OB 26w 1d, baby moving, nausea Obstetric History History (0,0,0,1) # 1 Baby 1 Outcome Date: 04/12/2017 Outcome: Live Outcome or Result: Vaginal Gender: Female Gest Age: 37 weeks Wt: 3033 g Hospital: [facility] Labor: -- Child's Name: -- Baby's Father: [...] trimester) Ordered: Office Visit Level 3 Est 96378 TH Follow Up 2. Genital herpes simplex virus (HSV) infection in mother affecting (O98.319: Other infections with a predominantly sexual mode of transmission complicating , unspecified trimester) Ordered: Office Visit Level 3 Est 51541 TH Follow Up 3. Depression during , antepartum (O99.340: Other mental disorders complicating , unspecified trimester) Ordered: Office Visit Level 3 Est 17233 TH Follow Up 4. 26 weeks gestation of (Z3A.26: 26 weeks gestation of ) Ordered: Office Visit Level 3 Est 77979 TH Follow Up Follow-up With When Contact Information Ludivina GARDNER MD In [address] [place] [address]- Additional Instructions: Problem List/Past Medical History Ongoing Depression during , antepartum Genital herpes simplex virus (HSV) infection in mother affecting Supervision of normal in second trimester Historical Procedure/Surgical History Tonsillectomy. 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 Never Smokeless Tobacco Use:., 02/29/2020 Family History Diabetes mellitus type 1: Grandparent. Hypertension: Grandparent. Lab Results Ambulatory Point of Care Results Glucose Urine Dipstick: Negative (02/29/20 09:41:00) Protein Urine Dipstick: Negative (02/29/20 09:41:00) Normal [place] Comment on above: Result Comment: Elec tronically Signed By: TAWANDA SARMIENTO, Ludivina Kat.br\Date and Time Signed: 02/29/20 10:02 EDT Coding Summary.on 02-20-2020 Coding Summary. CODING DATE: 020 FINAL [facility] STATUS: Home (Routine DC) PAYOR: Medicaid [...] CphT Date Saved: 02/20/2020 03:43 pm Normal [place] ABO/Rhon 02-19-2020 ABO/Rh Positive Invalid Interpretation Code [facility] Comment on above: Performed By: #### 1 [id number], [id number] ####[place] [address] [place] [address] ABSCon 02-19-2020 ABSC Gel Interp Negative Normal [facility] Comment on above: Performed By: #### 1 [id number], [id number] ####[place] [address] [place] [address] CBC w/Indiceson 02-19-2020 Erythrocyte distribution width (RBC) [Ratio] 13.5 % Normal 10.9-14.2 [place] Comment on above: Performed By: #### 3 [id number], [id number] #### [facility] [address] [place] [address] Hematocrit (Bld) [Volume fraction] 37.6 % Normal 34.0-46.0 [facility] Comment on above: Performed By: #### 3 [id number], [id number] #### [facility] [address] [place] [address] Hemoglobin (Bld) [Mass/Vol] 13.4 g/dL Normal 12.0-16.0 [facility] Comment on above: Performed By: #### 3 [id number], [id number] #### [facility] [address] [place] [address] MCH (RBC) [Entitic mass] 33.2 pg Normal 27.0-34.0 [facility] Comment on above: Performed By: #### 3 [id number], [id number] #### [facility] [address] [place] [address] MCHC (RBC) [Mass/Vol] 35.7 g/dL Normal 31.4-36.0 [facility] Comment on above: Performed By: #### 3 [id number], [id number] #### [facility] [address] [place] [address] MCV (RBC) [Entitic vol] 92.8 fL Normal 80.0-100.0 [place] Comment on above: Performed By: #### 3 [id number], [id number] #### [facility] [address] [place] [address] Platelet mean volume (Bld) [Entitic vol] 8.5 fL Normal 6.4-10.8 [place] Comment on above: Performed By: #### 3 [id number], [id number] #### [facility] [address] [place] [address] Platelets (Bld) [#/Vol] 157.0 E9/L Normal 150.0-500.0 [facility] Comment on above: Performed By: #### 3 [id number], [id number] #### [facility] [address] [place] [address] RBC (Bld) [#/Vol] 4.0 E12/L Low 4.3-5.9 [facility] Comment on above: Performed By: #### 3 [id number], [id number] #### [facility] [address] [place] [address] WBC corrected for nucl RBC Auto (Bld) [#/Vol] 6.9 E9/L Normal 4.0-11.0 [facility] Comment on above: Performed By: #### 3 [id number], [id number] #### [facility] [address] [place] [address] Consent for Treatmenton 01-21 Consent for Treatment [id number]: 127 Normal [place] Gest Scr Glu 1 Hron 02-19-20 20 Glucose [Mass/Vol] 116 mg/dL Normal 55-140 [facility] Comment on above: Result Comment: Posi tive Screen =1 HR > 140mg/dL Performed By: #### 3 [id number], [id number] ####[place] [address] [place] [address] Ambulatory Clinical Summaryo n 02-01-2020 Ambulatory Clinical Summary {[id number] }CD:[id number] Normal [place] Obstetrics Office/Clinic Not john 02-01-2020 Obstetrics Office/Clinic Note Chief Complaint OB 22w 1d, baby moving Obstetric History History (0,0,0,1) # 1 Baby 1 Outcome Date: 04/12/2017 Outcome: Live Outcome or Result: Vaginal Gender: Female Gest Age: 37 weeks Wt: 3033 g Hospital: [facility] Labor: -- Child's Name: -- Baby's Father: -- Comment: Paisle EGA and LETY Gestational Age (EGA) and [...] trimester) Ordered: Office Visit Level 4 Est 73009 TH 2. Genital herpes simplex virus (HSV) infection in mother affecting (O98.319: Other infections with a predominantly sexual mode of transmission complicating , unspecified trimester) Ordered: Office Visit Level 4 Est 86200 TH 3. Depression during , antepartum (O99.340: Other mental disorders complicating , unspecified trimester) Ordered: Office Visit Level 4 Est 31297 TH 4. 22 weeks gestation of (Z3A.22: 22 weeks gestation of ) Ordered: ABO/Rh Antibody Screen CBC w/ Indices Gestational Screen Glucose 1 Hour Office Visit Level 4 Est 97458 TH Follow-up With When Contact Information Ludivina GARDNER MD In [address] [place] [address]- Additional Instructions: Problem List/Past Medical History Ongoing Depression during , antepartum Genital herpes simplex virus (HSV) infection in mother affecting Supervision of normal in second trimester Historical Procedure/Surgical History Tonsillectomy. 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 Never Smokeless Tobacco Use:., 02/01/2020 Family History Diabetes mellitus type 1: Grandparent. Hypertension: Grandparent. Lab Results Ambulatory Point of Care Results Glucose Urine Dipstick: Negative (02/01/20 09:32:00) Protein Urine Dipstick: Negative (02/01/20 09:32:00) Normal [place] Comment on above: Result Comment: Elec tronically Signed By: Ludivina GARDNER MD\.br\Date and Time Signed: 02/01/20 09:52 EDT Ambulatory Clinical Summaryo n 01-08-2020 Ambulatory Clinical Summary {[id number] }CD:[id number] Normal [place] Obstetrics Office/Clinic Not john 01-08-2020 Obstetrics Office/Clinic [...] Age: 37 weeks Wt: 3033 g Hospital: [facility] Labor: -- Child's Name: -- Baby's Father: [...] trimester) Ordered: Office Visit Level 3 Est 64768 TH 2. Genital herpes simplex virus (HSV) infection in mother affecting (O98.319: Other infections with a predominantly sexual mode of transmission complicating , unspecified trimester) Ordered: Office Visit Level 3 Est 65939 TH 3. Depression during , antepartum (O99.340: Other mental disorders complicating , unspecified trimester) Ordered: Office Visit Level 3 Est 31787 TH 4. 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 Normal [place] Comment on above: Result Comment: Elec tronically [...] Extremities Normal Diaphragm Normal ACI Normal Normal [place] Ambulatory Clinical Summaryo n 01-03-2020 Ambulatory Clinical Summary {[id number] }CD:[id number] Normal [place] Obstetrics Office/Clinic Not john 01-03-2020 Obstetrics Office/Clinic Note Chief Complaint OB visit 18 weeks, headaches less than last appointment, Obstetric History History (0,0,0,1) # 1 Baby 1 Outcome Date: 04/12/2017 Outcome: Live Outcome or Result: Vaginal Gender: Female Gest Age: 37 weeks Wt: 3033 g Hospital: [facility] Labor: -- Child's Name: -- Baby's Father: [...] here for visit following anatomy US. Per key maker: anatomy WNL, FHR 155, variable position, cx [...] Stable. Ordered: Office Visit Level 3 Est 74569 TH 2. Supervision of normal in second trimester (Z34.92: Encounter for supervision of normal , unspecified, second trimester) Recommend Magnesium 500mg daily for headaches. Let pt know her sequentil screen is complete and low risk. Discussed first OB lab results. Follow up in 4 weeks. Ordered: Office Visit Level 3 Est 80415 TH 3. 18 weeks gestation of (Z3A.18: 18 weeks gestation of ) Ordered: Office Visit Level 3 Est 36017 TH 4. 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 Ordered: Office Visit Level 3 Est 15630 TH Follow-up With When Contact Information [facility] In [address] [place] [address]- Additional Instructions: Problem List/Past Medical History Ongoing Depression during , antepartum Genital herpes simplex virus (HSV) infection in mother affecting Supervision of normal in second trimester Historical Procedure/Surgical History Tonsillectomy. 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 Never Smokeless Tobacco Use:., 01/03/2020 Family History Diabetes mellitus type 1: Grandparent. Hypertension: Grandparent. Lab Results Ambulatory Point of Care Results Glucose Urine Dipstick: Negative (01/03/20 08:52:00) Protein Urine Dipstick: Negative (01/03/20 08:52:00) Normal [place] Comment on above: Result Comment: Elec tronically Signed By: ALEKSANDRA SIMMONS, Silvia\.portillo\Date and Time Signed: 01/03/20 09:17 EDT Sequential Screen, Second Tr imesteron 01-01-2020 Sequential Screen 2 see below Normal [facility] Comment on above: Order Comment: (Send out facility name if possible): [facility] with accompanying paperwork. Result Comment: Screen negative - detailed report to follow Testing Performed: [facility]. [address] [place] [address] Performed By: #### S EQ2 #### [facility] [address] [place] [address] Sequential Screen, First Tri mesteron 12-06-2019 Sequential Screen 1 see below Normal [facility] Comment on above: Order Comment: (Send out facility name if possible): [facility] with accompanying paperwork. Result Comment: Jeanie olguin Results pending second trimester sample - detailed report to follow Testing Performed: [facility]. [address] [place] [address] Performed By: #### S EQ1 #### [address] [address] Miscellaneous Lab Procedureo n 05-23-2017 [facility] LAB TEST Normal [facility] Comment on above: Order Comment: Test( [...] of an image guided system.Performed by Deborah Arias, [employer])The HPV DNA reflex criteria were not met with this specimenresult therefore, no HPV testing was performed. ___ TESTING PERFORMED AT [facility]. ORIGINAL REPORT ON FILE IN LAB CONTAINS ADDITIONAL TEST SITE INFORMATION. Performed By: #### L 801.1541 ####[facility] [address] [place], [address] Discharge Instructionon 03-22 Discharge Instruction [facility] [address] [place], [place] [address]Pjxfhpjasecg for Home/Discharge Chzimwityjbd75/24/17 2115MR#: [id number] Acct: [id number]: FEMI KRAMER Rep #: [id number]: 1995 21 [facility] Status: ADM INDischarge Diet: No RestrictionsDischarge Activity: [...] seen in 2 weeks.04/13/172114 Date Aimee Castelan [facility]: Normal [facility] Operative Reporton 7 Operative Report [facility] [address] [place] [place], [place] [address]Trrejwttu Tfkeft57/24/17 0031MR#: [id number] Acct: [id number]: FEMI KRAMER Rep #: [id number]: 1995 21 From: [facility]: Status: ADM IN YLocation: WP [id number] DeliveryMaternal Presentation: Active Labor, Spontaneous Rupture of Iwfvxytnl55 yo @ 37w1d presents IAL SROM clear [...] IV PitocinComplications: None04/13/17 0033 Date Aimee Castelan [facility]: Aimee Castelan MD Signed Normal [facility] (ROM) Rupture Of Membraneson 04-12-2017 ROM Positive High Negative [facility] Comment on above: Result Comment: Amni otic fluid present indicates rupture of Membranes.[facility] 04/12/17 1618 Brittni Sandoval.REPORT READ BACK BY SAME . Performed By: #### L 205.1000 ####[facility] [address] [place], [place], [address] CBC-Complete Blood Cnt No Di ffon 04-12-2017 Erythrocyte distribution width Auto Ratio (RBC) 12.3 % Normal 11.6-14.6 [facility] Comment on above: Performed By: #### L 100.0500 ####[facility] [address] [place], [address] Erythrocytes (RBC) 4.56 M/mm3 Normal 4.2-5.4 [facility] Comment on above: Performed By: #### L 100.0500 ####[facility] [address] [place], [place], [address] Hematocrit (HCT) 40.0 % Normal 37-47 [facility] Comment on above: Performed By: #### L 100.0500 ####[facility] [address] [place], [address] Hemoglobin mass conc (Bld) 13.8 g/dL Normal 12.0-15.0 [facility] Comment on above: Performed By: #### L 100.0500 ####[facility] [address] [place], [address] MCH 30.3 pg Normal 27.0-32.0 [facility] Comment on above: Performed By: #### L 100.0500 ####[facility] [address] [place], [address] MCHC mass conc (RBC) 34.5 g/gl Normal 32-36 [facility] Comment on above: Performed By: #### L 100.0500 ####[facility] [address] [place], [address] MCV 87.7 fL Normal 81-99 [facility] Comment on above: Performed By: #### L 100.0500 ####[facility] [address] [place], [address] Platelet mean volume (PMV) 11.4 fL Normal 6.2-12.0 [facility] Comment on above: Performed By: #### L 100.0500 ####[facility] [address] [place], [address] Platelets 201 10*3/uL Normal 150-450 [facility] Comment on above: Performed By: #### L 100.0500 ####[facility] [address] [place], [address] RDW SD 38.7 fl Normal 35.1-43.9 [facility] Comment on above: Performed By: #### L 100.0500 ####[facility] [address] [place], [address] WBC (Leukocytes) 11.6 10*3/uL High 4.4-11.0 [facility] Comment on above: Performed By: #### L 100.0500 ####[facility] [address] [place], [address] History and Physical Examon 04-12-2017 History and Physical Exam [facility] [address] [address]Zdcvybz and Lleotkbl42/23/17 1732MR#: [id number] Acct: [id number]: FEMI KRAMER Rep #: [id number]: 1995 21 From: [facility]: Status: ADM IN YLocation: [id number] and PhysicalDate of Admission: 04/12/17History of Present [...] negativeHIV: negativePhysical ExaminationVital Signs:Last Ht: 64 (03/15/2017)General Exam:Constitutional:aler t, no acute distress, well hydrated, well developed and well nourished.Abdomen:gravid , nontender, no guarding, normal BS, no hepatosplenomegaly and no hernias.Pelvic Exam:Vulva:normal appearance, normal hair distribution and no lesions or masses.Urethra:no masses, non-tender and no discharge.Bladder:no masses, non-tender and non-distended.Vagina:nor mal, rugated, physiologic discharge, no lesions, no masses, no cystocele and adequatepelvic support.Cervix:normal, no motion tenderness and no lesions. 60/-1 clear fluidUterus:gravid, size c/w dates, softened, anteverted, anteflexed, mobile and non-tender.Adnexa:normal , no masses, mobile and nontender.Rectum:normal and no masses.fhts 130s moderate variability reactive no decels. toco q 2-3 minutesA/P:21 yo @ 37w1d IAL srom clear fluidadmit IAL routine care gbs negative epi PRN1 1736 Date Aimee Castelan [facility]ign Signature (if applicable): Date CC : Aimee Castelan MD Signed [facility] [facility] Type AND Screenon 04-12-2017 Antibody Screen Negative [facility] Comment on above: Order Comment: Reaso n for Type AND Screen/Red Cells: ROUTINE Performed By: #### B 101.7450 ####[facility] [address] [place], [place], [id number] BLOOD TYPE GEL Positive Normal [facility] Comment on above: Order Comment: Reaso n for Type AND Screen/Red Cells: ROUTINE Performed By: #### B 101.7450 ####[facility] [address] [place], [place], [id number] Culture, Group B Streptococc uson 04-08-2017 CUGRB STEPHANY Culture Group B Beta Streptococcus is not isolated. [facility] Comment on above: Performed By: #### M 100.1800 ####[facility] [address] [place], [address] Group B Strep DNA By PCRon 1 GBS TEST RESULT Negative Normal Negative [facility] Comment on above: Order Comment: NO CO LLECTION INFORMATION GIVENSource: Vaginal Performed By: #### L 8200.0000 ####[facility] [address] [place], [address] CBC with Diffon 12-16-2016 Basophils Auto #/vol (Bld) 0.0 K/mcL Normal 0-0.2 [facility] Comment on above: Performed By: #### C BCBOB, KRISTINET, GHASSAN ####Unless otherwise noted, all testing performed by [place] [phone]: [id number] Director: Jr Alcantara M.D. Basophils/100 WBC Auto (Bld) 0.2 % [facility] Comment on above: Performed By: #### C KUSH ALMARAZ, GHASSAN ####Unless otherwise noted, all testing performed by [place] [phone]: [id number] Director: Jr Alcantara M.D. Eosinophils 0.0 K/mcL Normal 0-0.5 [facility] Comment on above: Performed By: #### C BCBOB, [place], [place] ####Unless otherwise noted, all testing performed by [place] [phone]: [id number] Director: Jr Alcantara M.D. Eosinophils/100 leukocytes 0.0 % [facility] Comment on above: Performed By: #### C BCDIF, CMET, [place] ####Unless otherwise noted, all testing performed by [address] [phone]: [id number] Director: Jr Alcantara M.D. Erythrocyte distribution width Auto Ratio (RBC) 13.4 % Normal 10-14.4 [facility] Comment on above: Performed By: #### C BCDIF, [place], [place] ####Unless otherwise noted, all testing performed by [address] [phone]: [id number] Director: Jr Alcantara M.D. Erythrocytes (RBC) 4.23 M/mcL Normal 3.7-5.0 [facility] Comment on above: Performed By: #### C BCDIF, [place], [place] ####Unless otherwise noted, all testing performed by [address] [phone]: [id number] Director: Jr Alcantara M.D. Hematocrit (HCT) 37.7 % Normal 34.4-44.8 [facility] Comment on above: Performed By: #### C BCDIF, [place], [place] ####Unless otherwise noted, all testing performed by [address] [phone]: [id number] Director: Jr Alcantara M.D. Hemoglobin mass conc (Bld) 13.4 g/dL Normal 11.6-15.4 [facility] Comment on above: Performed By: #### C BCDIF, [place], [place] ####Unless otherwise noted, all testing performed by [address] [phone]: [id number] Director: Jr Alcantara M.D. Lymphocytes 0.8 K/mcL Low 1.0-3.7 [facility] Comment on above: Performed By: #### C BCDIF, [place], [place] ####Unless otherwise noted, all testing performed by [address] [phone]: [id number] Director: Jr Alcantara M.D. Lymphocytes/100 leukocytes 16.3 % Normal [facility] Comment on above: Performed By: #### C BCDIF, [place], [place] ####Unless otherwise noted, all testing performed by [address] [phone]: [id number] Director: Jr Alcantara M.D. MCH 31.6 pg Normal 27.9-33.9 [facility] Comment on above: Performed By: #### C BCDIF, [place], [place] ####Unless otherwise noted, all testing performed by [address] [phone]: [id number] Director: Jr Alcantara M.D. MCHC mass conc (RBC) 35.5 g/dL High 33.1-35.1 [facility] Comment on above: Performed By: #### C BCDIF, [place], [place] ####Unless otherwise noted, all testing performed by [address] [phone]: [id number] Director: Jr Alcantara M.D. MCV 89.1 fL Normal 82.6-98.9 [facility] Comment on above: Performed By: #### C BCDIF, [place], [place] ####Unless otherwise noted, all testing performed by [address], [place] [phone]: [id number] Director: Jr Alcantara M.D. Monocytes 0.3 K/mcL Normal 0.1-0.6 [facility] Comment on above: Performed By: #### C BCDIF, [place], [place] ####Unless otherwise noted, all testing performed by [address] [phone]: [id number] Director: Jr Alcantara M.D. Monocytes/100 leukocytes 5.4 % Normal [facility] Comment on above: Performed By: #### C BCDIF, [place], [place] ####Unless otherwise noted, all testing performed by [address] [phone]: [id number] Director: Jr Alcantara M.D. Neutrophils 4.0 K/mcL Normal 1.2-6.9 [facility] Comment on above: Performed By: #### C BCDIF, [place] ####Unless otherwise noted, all testing performed by [address] [phone]: [id number] Director: Jr Alcantara M.D. Platelet mean volume (PMV) 8.3 fL Normal 7.0-10.6 [facility] Comment on above: Performed By: #### C BCDIF, [place], [place] ####Unless otherwise noted, all testing performed by [address] [phone]: [id number] Director: Jr Alcantara M.D. Platelets 120 K/mcL Low 162-402 [facility] Comment on above: Performed By: #### C BCDIF, [place], [place] ####Unless otherwise noted, all testing performed by [address] [phone]: [id number] Director: Jr Alcantara M.D. Segmented Neut % 78.1 % Normal [facility] Comment on above: Performed By: #### C BCDIF, [place], [place] ####Unless otherwise noted, all testing performed by [address] [phone]: [id number] Director: Jr Alcantara M.D. WBC (Leukocytes) 5.1 K/mcL Normal 3.4-10.6 [facility] Comment on above: Performed By: #### C BCDIF, [place], [place] ####Unless otherwise noted, all testing performed by [address] [phone]: [id number] Director: Jr Alcantara M.D. [facility] 12-16-2016 Alanine aminotransferase (ALT) 62 U/L Normal 14-65 [facility] Comment on above: Performed By: #### C BCDIF, [place], [place] ####Unless otherwise noted, all testing performed by [address] [phone]: [id number] Director: Jr Alcantara M.D. Albumin 3.5 g/dL Normal 3.2-5.2 [facility] Comment on above: Performed By: #### C BCDIF, [place], [place] ####Unless otherwise noted, all testing performed by [address] [phone]: [id number] Director: Jr Alcantara M.D. Alkaline phosphatase (ALP) 72 U/L Normal 40-140 [facility] Comment on above: Performed By: #### C BCDIF, [place], [place] ####Unless otherwise noted, all testing performed by [address] [phone]: [id number] Director: Jr Alcantara M.D. Aspartate aminotransferase (AST) 51 U/L High 0-45 [facility] Comment on above: Performed By: #### C BCDIF, [place], [place] ####Unless otherwise noted, all testing performed by [address] [phone]: [id number] Director: Jr Alcantara M.D. Bilirubin (total) 0.6 mg/dL Normal 0.3-1.2 [facility] Comment on above: Performed By: #### C BCDIF, [place], [place] ####Unless otherwise noted, all testing performed by [address] [phone]: [id number] Director: Jr Alcantara M.D. Calcium 8.7 mg/dL Normal 8.4-10.2 [facility] Comment on above: Performed By: #### C BCDIF, [place], [place] ####Unless otherwise noted, all testing performed by [address] [phone]: [id number] Director: Jr Alcantara M.D. Chloride 102 mmol/L Normal 98-108 [facility] Comment on above: Performed By: #### C BCDIF, [place], [place] ####Unless otherwise noted, all testing performed by [address] [phone]: [id number] Director: Jr Alcantara M.D. CO2 25 mmol/L Normal 21-32 [facility] Comment on above: Performed By: #### C KUSH ALMARAZ, GHASSAN ####Unless otherwise noted, all testing performed by [address] [phone]: [id number] Director: Jr Alcantara M.D. Creatinine 0.52 mg/dL Normal 0.50-1.00 [facility] Comment on above: Performed By: #### C KUSH ALMARAZ, GHASSAN ####Unless otherwise noted, all testing performed by [address] [phone]: [id number] Director: Jr Alcantara M.D. eGFR (black) mL/min/{1.73_m2} Normal [facility] Comment on above: Result Comment: Afri can [place] GFR Calc Performed By: #### C KUSH ALMARAZ, GHASSAN ####Unless otherwise noted, all testing performed by [address] [phone]: [id number] Director: Jr Alcantara M.D. eGFR (non-black) mL/min/{1.73_m2} Normal [facility] Comment on above: Result Comment: Non- GFR CalceGFR is an estimated Glomerular Filtration Rate based on the valueof the patient's serum creatinine. In outpatients, eGFR should be usedas a helpful tool in screening for CKD. In inpatients or patients withacute renal failure, eGFR represents the GFR at the moment of the drawand should be used with caution. Performed By: #### C KUSH ALMARAZ, GHASSAN ####Unless otherwise noted, all testing performed by [address], [place] [phone]: [id number] Director: Jr Alcantara M.D. Glucose mass conc 94 mg/dL Normal 65-99 [facility] Comment on above: Performed By: #### C BCDIF, [place], [place] ####Unless otherwise noted, all testing performed by [address] [phone]: [id number] Director: Jr Alcantara M.D. Potassium molar conc 3.2 mmol/L Low 3.5-5.1 [facility] Comment on above: Performed By: #### C BCDIF, [place], [place] ####Unless otherwise noted, all testing performed by [address] [phone]: [id number] Director: Jr Alcantara M.D. Protein 7.1 g/dL Normal 6.0-8.0 [facility] Comment on above: Performed By: #### C BCDIF, [place], [place] ####Unless otherwise noted, all testing performed by [address] [phone]: [id number] Director: Jr Alcantara M.D. Sodium 136 mmol/L Normal 135-145 [facility] Comment on above: Performed By: #### C BCDIF, [place], [place] ####Unless otherwise noted, all testing performed by [address] [phone]: [id number] Director: Jr Alcantara M.D. Urea nitrogen 4 mg/dL Low 8-25 [facility] Comment on above: Performed By: #### C BCDIF, [place] ####Unless otherwise noted, all testing performed by [address] [phone]: [id number] Director: Jr Alcantara M.D. Culture, Bloodon 12-16-2016 Culture, Blood Test Name: Culture, Blood Culture Status: Final Culture Report: No Growth - Day 5 Micro Source: .... Normal [facility] Comment on above: Performed By: #### B C ####Unless otherwise noted, all testing performed by [address] [phone]: [id number] Director: Jr Alcantara M.D. Culture, Blood Test Name: Culture, Blood Culture Status: Final Culture Report: No Growth - Day 5 Micro Source: .... Normal [facility] Comment on above: Performed By: #### B C ####Unless otherwise noted, all testing performed by [address] [phone]: [id number] Director: Jr Alcantara M.D. Culture, Urineon 12-16-2016 Culture, Urine Test Name: Culture, Urine Culture Status: Final Culture Report: No significant growth. Micro Source: .... Normal [facility] Comment on above: Performed By: #### U RCUL ####Unless otherwise noted, all testing performed by [address] [phone]: [id number] Director: Jr Alcantara M.D. Lactic Acidon 12-16-2016 Lactate 0.7 mmol/L Normal 0.6-2.0 [facility] Comment on above: Performed By: #### C BCDIF, [place], [place] ####Unless otherwise noted, all testing performed by [address] [phone]: [id number] Director: Jr Alcantara M.D. Urine with Indicated Culture on 12-16-2016 Bilirubin,Urine Small Abnormal NEG;NEGATIV E [facility] Comment on above: Performed By: #### U IC ####Unless otherwise noted, all testing performed by [address] [phone]: [id number] Director: Jr Alcantara M.D. Blood,Urine Negative Normal NEG;NEGATIV E [facility] Comment on above: Performed By: #### U IC ####Unless otherwise noted, all testing performed by [address] [phone]: [id number] Director: Jr Alcantara M.D. Ketone,Urine >= 160 Normal [facility] Comment on above: Performed By: #### U IC ####Unless otherwise noted, all testing performed by [address] [phone]: [id number] Director: Jr Alcantara M.D. Leuk.Esterase,Urine Trace Abnormal Negative [facility] Comment on above: Performed By: #### U IC ####Unless otherwise noted, all testing performed by [address] [phone]: [id number] Director: Jr Alcantara M.D. Mucus, Urine Moderate Abnormal None Seen [facility] Comment on above: Performed By: #### U IC ####Unless otherwise noted, all testing performed by [address] [place] [phone]: [id number] Director: Jr Alcantara M.D. Nitrite,Urine Negative Normal NEG;NEGATIV E [facility] Comment on above: Performed By: #### U IC ####Unless otherwise noted, all testing performed by [address] [phone]: [id number] Director: Jr Alcantara M.D. Protein,Urine Trace Abnormal NEGATIVE;NE G [facility] Comment on above: Performed By: #### U IC ####Unless otherwise noted, all testing performed by [address] [phone]: [id number] Director: Jr Alcantara M.D. Specific Parlin,Urine 1.020 Normal 1.003-1.029 [facility] Comment on above: Performed By: #### U IC ####Unless otherwise noted, all testing performed by [address] [phone]: [id number] Director: Jr Alcantara M.D. Squamous Epithelial 5-10 Abnormal 0-3+;NS [facility] Comment on above: Performed By: #### U IC ####Unless otherwise noted, all testing performed by [address] [phone]: [id number] Director: Jr Alcantara M.D. Urine, bacteria in sediment Rare Normal NS;RARE [facility] Comment on above: Performed By: #### U IC ####Unless otherwise noted, all testing performed by [address] [phone]: [id number] Director: Jr Alcantara M.D. Urine, character Clear Normal [facility] Comment on above: Performed By: #### U IC ####Unless otherwise noted, all testing performed by [address] [phone]: [id number] Director: Jr Alcantara M.D. Urine, color Yellow Normal [facility] Comment on above: Performed By: #### U IC ####Unless otherwise noted, all testing performed by [address] [phone]: [id number] Director: Jr Alcantara M.D. Urine, glucose presence Negative Normal NEG;NEGATIV E [facility] Comment on above: Performed By: #### U IC ####Unless otherwise noted, all testing performed by [address] [phone]: [id number] Director: Jr Alcantara M.D. Urine, leukocytes in sedmiment 5-10 Abnormal 0-3+;3-5+;N S [facility] Comment on above: Performed By: #### U IC ####Unless otherwise noted, all testing performed by [address] [phone]: [id number] Director: Jr Alcantara M.D. Urine, pH 7.0 [pH] Normal 4.5-8.0 [facility] Comment on above: Performed By: #### U IC ####Unless otherwise noted, all testing performed by [address] [phone]: [id number] Director: Jr Alcantara M.D. Urobilinogen,Urine 1.0 EU/dL High 0.2 [facility] Comment on above: Performed By: #### U IC ####Unless otherwise noted, all testing performed by [address] [phone]: [id number] Director: Jr Alcantara M.D. Vital Signs Date Time Vital Sign Value Performing Clinician Faci lit 12-13-2024 20:18-0400 SaO2% (BldA) [Mass fraction] 99 % Mauricio Funes MD Work Phone: [employer] 12-13-2024 20:13-0400 Heart rate 90 /min Mauricio Funes MD Work Phone: [employer] 12-13-2024 20:13-0400 Respiratory rate 18 /min Mauricio Funes MD Work Phone: [employer] 12-13-2024 20:11-0400 Body temperature 98.29 [degF] Mauricio Funes MD Work Phone: [employer] 12-13-2024 20:11-0400 Diastolic blood pressure 71 mm[Hg] Mauricio Funes MD Work Phone: [employer] 12-13-2024 20:11-0400 Systolic blood pressure 125 mm[Hg] Mauricio Funes MD Work Phone: [employer] 12-13-2024 17:37-0400 Body height 162.6 cm Mauricio Funes MD Work Phone: [employer] 12-13-2024 17:37-0400 Body mass index (BMI) [Ratio] 21.63 kg/m2 Mauricio Funes MD Work Phone: [employer] 12-13-2024 17:37-0400 Body weight 57.15 kg Mauricio Funes MD Work Phone: [facility] 12-13-2024 14:39-0400 Body mass index (BMI) [Ratio] 21.63 kg/m2 Ellis Maryana DO Work Phone: [facility] 12-13-2024 14:39-0400 Body weight 57.15 kg Ellis Maryana DO Work Phone: [facility] 12-13-2024 14:39-0400 Diastolic blood pressure 62 mm[Hg] Ellis Maryana DO Work Phone: [facility] 12-13-2024 14:39-0400 Systolic blood pressure 112 mm[Hg] Ellis Maryana DO Work Phone: [facility] 11-13-2024 12:36-0400 Body height 162.6 cm Deysi Louise MD Work Phone: [facility] 11-13-2024 12:36-0400 Body mass index (BMI) [Ratio] 22.31 kg/m2 Deysi Louise MD Work Phone: [facility] 11-13-2024 12:36-0400 Body temperature 98.8 [degF] Deysi Louise MD Work Phone: [facility] 11-13-2024 12:36-0400 Body weight 58.97 kg Deysi Louise MD Work Phone: [facility] 11-13-2024 12:36-0400 Diastolic blood pressure 62 mm[Hg] [facility] 11-13-2024 12:36-0400 Heart rate 88 /min Deysi Louise MD [facility] [employer] 11-13-2024 12:36-0400 Respiratory rate 18 /min Deysi Louise MD [facility] 11-13-2024 12:36-0400 SaO2% (BldA) [Mass fraction] 98 % Deysi Louise MD Work Phone: [facility] 11-13-2024 12:36-0400 Systolic blood pressure 120 mm[Hg] Deysi Louise MD Work Phone: [facility] 11-08-2024 14:07-0400 Body height 162.6 cm Ellis Maryana DO Work Phone: [facility] 11-08-2024 14:07-0400 Body mass index (BMI) [Ratio] 23 kg/m2 Ellis Maryana DO Work Phone: [facility] 11-08-2024 14:07-0400 Body weight 60.78 kg Ellis Maryana DO Work Phone: [facility] 11-08-2024 14:07-0400 Diastolic blood pressure 64 mm[Hg] Ellis Maryana DO Work Phone: [facility] 11-08-2024 14:07-0400 Systolic blood pressure 110 mm[Hg] Ellis Maryana DO Work Phone: [facility] 10-31-2024 13:33-0400 Body mass index (BMI) [Ratio] 22.83 kg/m2 Ellis Maryana DO Work Phone: [facility] 10-31-2024 13:33-0400 Body weight 60.33 kg Ellis Maryana DO Work Phone: [facility] 10-31-2024 13:33-0400 Diastolic blood pressure 68 mm[Hg] Ellis Maryana DO Work Phone: [facility] 10-31-2024 13:33-0400 Systolic blood pressure 118 mm[Hg] Ellis Maryana DO Work Phone: [facility] 10-17-2024 09:03-0400 Body mass index (BMI) [Ratio] 22.49 kg/m2 Ellis Maryana DO Work Phone: [facility] 10-17-2024 09:03-0400 Body weight 59.42 kg Ellis Maryana DO Work Phone: [facility] 10-17-2024 09:03-0400 Diastolic blood pressure 68 mm[Hg] Ellis Maryana DO Work Phone: [facility] 10-17-2024 09:03-0400 Systolic blood pressure 108 mm[Hg] Ellis Maryana DO Work Phone: [facility] Encounters Encounter Date Encounter Type Care Provider Facility Start: 12-15-2024 End: 12-15-2024 Clinisync Result Encounter Ellis Maryana DO Work Phone: [facility] External Department Unsolicited Start: 12-15-2024 End: 12-15-2024 Clinisync Result Encounter Ellis Maryana DO Work Phone: [facility] External Department Unsolicited Start: 12-13-2024 End: 12-13-2024 Emergency department patient visit Mauricio Funes MD Work Phone: [facility] Emergency Department Comment on above: Symptomatic anemia ( Primary Dx); History of metrorrhagia; Menorrhagia with irregular cycle Start: 12-13-2024 End: 12-13-2024 ambulatory ELLIS MARYANA Not Available Start: 12-13-2024 End: 12-13-2024 Office outpatient visit 15 minutes Ellis Maryana DO Work Phone: [facility] Comment on above: Pre-op examination; Menorrhagia with regular cycle; Abnormal uterine bleeding (AUB); Pelvic pain Start: 12-13-2024 End: 12-13-2024 Preprocedural examination done Ellis Maryana DO Work Phone: [facility] Start: 12-13-2024 End: 12-13-2024 Bamboo flowsheet Ellis Maryana DO Work Phone: [facility] Start: 12-13-2024 End: 12-13-2024 Bamboo flowsheet Ellis Maryana DO Work Phone: [facility] Start: 12-13-2024 End: 12-13-2024 Clinisync Result Encounter Ellis Maryana DO Work Phone: [facility] External Department Unsolicited Start: 11-13-2024 End: 11-13-2024 Emergency department patient visit Deysi Louise MD Work Phone: [facility] Emergency Department Comment on above: Nonspecific syndrome suggestive of viral illness (Primary Dx) Start: 11-08-2024 End: 11-15-2024 External Result Encounter Ellis Maryana DO Work Phone: [facility] External Department Unsolicited Start: 11-08-2024 End: 11-15-2024 External Result Encounter Ellis Maryana DO Work Phone: [facility] External Department Unsolicited Start: 11-08-2024 End: 11-08-2024 [...] 10-17-2024 ambulatory ELLIS MARYANA Not Available Start: 10-07-2022 End: 10-07-[address] DOCTOR OLIVAREZ Facility:[facility] Start: 07-27-2022 End: 07-28-[address] DOCTOR OLIVAREZ Facility:[facility] Start: 07-31-2021 End: 07-31-2021 Subsequent hospital visit by physician Parker Covid19 Pat Screening Schedule [facility] PRE ADMIT Comment on above: Suspected 2019-nCoV infection Start: 05-18-2017 Ambulatory Aimee Estrada lity:[facility] Start: 05-02-2017 Ambulatory Aimee Estrada lity:[facility] Start: 04-12-2017 End: 04-14-2017 Evaluation and management of inpatient Aimee Castelan Facility:[facility] Start: 04-05-2017 Ambulatory Aimee Estrada lity:[facility] Start: 02-01-2017 End: 02-01-2017 Ambulatory [facility] Start: 12-16-2016 End: 12-16-2016 Emergency department patient visit Jesús Azul Facility:[facility] Date Procedure Procedure Detail Performing Clinician Start: 12-15-2024 US PELVIS W/ TRANSVAGINAL Ellis Maryana DO Work Phone: Start: 12-15-2024 XR CHEST 2V Ellis Fazi o DO Work Phone: Start: 12-15-2024 Antibody screen Ellis F azio DO Work Phone: Start: 12-15-2024 ALL TYPE AND SCREEN Cor ey Maryana DO Work Phone: Start: 12-13-2024 End: 12-13-2024 Transfusion of packed red blood cells Mauricio Funes MD Work Phone: Start: 12-13-2024 Ecg routine ecg w/le ast 12 lds w/i&r Mauricio Funes MD Work Phone: Start: 12-13-2024 Basic metabolic pane l calcium total Mauricio Funes MD Work Phone: Start: 12-13-2024 Blood typing serologic abo Mauricio Funes MD Work Phone: Start: [...] Phone: Start: 10-17-2024 IGP,APTIMA HPV,AGE GDLN Ellis Mijares DO Work Phone: Start: 10-14-2023 Cytp cerv/vag auto t hin layer prep mnl screen Ellis Mijares DO Work Phone: Start: 07-31-2021 COVID-19, RAPID Giuliana Mckee DO Work Phone: Start: 10-24-2019 Microscopic observat ion [Identifier] in Cervix by Cyto stain [facility] Schedule Plan of Treatment Date Care Activity Detail Author Start: 05-29-2030 DTaP/Tdap/Td vaccine (9 - Td or Tdap) DTaP/Tdap/Td vaccine (9 - Td or Tdap) [facility] Start: 05-15-2025 End: 05-15-2025 Patient encounter procedure 05/15/2025 2:00 PM EST Procedure Visit [facility] [address] [place] [place] [address] Ellis Mijares, [address] [place] [address] [facility] Start: 02-19-2025 Influenza vaccination Influenz a Vaccine (Season Ended) [facility] Start: 01-23-2025 End: 01-23-2025 Patient encounter procedure 01/23/2025 1:30 PM EDT Office Visit [facility] [address] [place] [address] Nazia Reid PA [address] [place] [address] [facility] Start: 01-19-2025 Influenza vaccination Flu vacc ine (Season Ended) Denny Wade [facility] Start: 12-06-2024 End: 12-06-2024 Patient encounter procedure 12/06/2024 1:30 PM EDT Office Visit [facility] [address] [place] [address] Nazia Reid, PA [address] [place] [address] [facility] Start: 11-08-2024 End: 11-08-2025 Colposcopy Colposcopy Procedures Routine ASCUS with positive high risk HPV cervical Expected: 11/08/2024 (Approximate), Expires: 11/08/2025 [facility] Work Phone: Comment on above: Expected: 11/08/2024 (Approximate), Expires: 11/08/2025 Start: 11-08-2024 End: 11-08-2024 Patient encounter procedure 11/08/2024 1:30 PM EDT Procedure Visit [facility] [address] [place] [phone] Ellis Mijares, DO [address] [place] [address] [facility] Start: 10-31-2024 End: 10-31-2024 Patient encounter procedure 10/31/2024 1:30 PM EDT Procedure Visit [facility] [address] [place] [id number] Ellis Mijares, DO [address] [place] [address] [facility] Start: 10-17-2024 End: 10-17-2025 aPTT in Blood by Coagulation assay APTT Lab Routine Menorrhagia with regular cycle Expected: 10/17/2024 (Approximate), Expires: 10/17/2025 [facility] Comment on above: Expected: 10/17/2024 (Approximate), Expires: 10/17/2025 Start: 10-17-2024 End: 10-17-2025 US Pelvis US Pelvis w/ TV Imaging Routine Menorrhagia with regular cycle Expected: 10/17/2024, Expires: 10/17/2025 [facility] Comment on above: Expected: 10/17/2024 , Expires: 10/17/2025 Start: 10-17-2024 End: 10-17-2024 Patient encounter procedure 10/17/2024 9:00 AM EDT Office Visit [facility] [address] [place] [address] Ellis Mijares, DO [address] [place] [address] Arrived [facility] Comment on above: Arrived Start: 04-29-2024 Depression Screen Depression Screen [facility] Start: 02-20-2024 COVID-19 Vaccine ( season) COVID-19 Vaccine () [facility] Start: 10-23-2022 Screening for malign ant neoplasm of cervix Pap smear [facility] Start: 02-19-2021 Influenza vaccination Flu vaccine (# 1) [facility] Start: 2013 Hepatitis C screening Hepatitis C [facility] Start: 2010 HIV screening HIV screen [facility] Start: 2007 Depression Screen Depression Screen [facility] Start: 2006 HPV vaccine (1 - 2-d ose series) HPV vaccine (1 - 2-dose series) [facility] Start: 2000 COVID-19 Vaccine (1) COVID-19 Vaccin e (1) [facility] Start: 04-06-2000 Varicella vaccine (2 of 2 - 2-dose childhood series) Varicella vaccine (2 of 2 - 2-dose childhood series) [facility] Start: 1995 Hepatitis C screening Hepatitis C [facility] CBC W Auto Different ial panel - Blood CBC and differential Lab Routine Menorrhagia with regular cycle Ordered: 10/17/2024 [facility] Comment on above: Ordered: 10/17/2024 Cytology Cervical or vaginal smear or scraping study Pap Smear Pathology and Cytology Routine Well woman exam with routine gynecological exam Ordered: 10/17/2024 [facility] Work Phone: Comment on above: Ordered: 10/17/2024 EKG 12 Lead (Chest Pain) EKG 12 Lead (Chest Pain) ECG STAT 12/13/2024 6:23 PM EDT [facility] Endometrial biopsy Endometrial b iopsy Procedures Routine Menorrhagia with regular cycle Ordered: 10/31/2024 [facility] Work Phone: Comment on above: Ordered: 10/31/2024 hCG, quantitative, hCG, quantitative, Lab Routine Menorrhagia with regular cycle Ordered: 10/17/2024 [facility] Comment on above: Ordered: 10/17/2024 Hemoglobin A1c/Hemoglobin.total in Blood Hemoglobin A1c Lab Routine Menorrhagia with regular cycle Ordered: 10/17/2024 [facility] Comment on above: Ordered: 10/17/2024 End: 12-27-2024 Hemoglobin and Hematocrit Hemoglobin and Hematocrit Lab Routine Post Transfusion Post Transfusion Post Transfustion until discontinued starting 12/13/2024 [facility] Comment on above: Post Transfusion Pos t Transfusion Post Transfustion until discontinued starting 12/13/2024 End: 12-13-2024 PREPARE RBC (CROSSMATCH), 1 Units PREPARE RBC (CROSSMATCH), 1 Units Blood Bank Routine Once for 1 Occurrences starting 12/13/2024 until 12/13/2024 [facility] Comment on above: Once for 1 Occurrenc es starting 12/13/2024 until 12/13/2024 Prothrombin time (PT ) in Blood by Coagulation assay Protime-INR Lab Routine Menorrhagia with regular cycle Ordered: 10/17/2024 [facility] Comment on above: Ordered: 10/17/2024 Thyrotropin [Units/volume] in Serum or Plasma TSH Lab Routine Menorrhagia with regular cycle Ordered: 10/17/2024 [facility] Comment on above: Ordered: 10/17/2024 Thyroxine (T4) free [Mass/volume] in Serum or Plasma T4, free Lab Routine Menorrhagia with regular cycle Ordered: 10/17/2024 [facility] Comment on above: Ordered: 10/17/2024 TYPE AND SCREEN TYPE AND SCREEN Blood Bank STAT 12/13/2024 5:37 PM EDT [facility] Immunizations Immunization Date Immunization Notes Care Provider Hilario wilcox 04-29-2023 Rabies Deysi baptiste MD Work Phone: [facility] 05-29-2020 tetanus toxoid, reduced diphtheria toxoid, and acellular pertussis vaccine, adsorbed Deysi Louise MD Work Phone: [facility] 05-29-2020 influenza virus vaccine, unspecified formulation Ellis Mijares DO Work Phone: [facility] 03-08-2020 tetanus toxoid, reduced diphtheria toxoid, and acellular pertussis vaccine, adsorbed Deysi Louise MD Work Phone: [facility] 04-14-2017 influenza virus vaccine, unspecified formulation Deysi Louise MD Work Phone: [facility] 04-22-2016 tetanus toxoid, reduced diphtheria toxoid, and acellular pertussis vaccine, adsorbed [facility] 01-13-2000 diphtheria, tetanus toxoids and acellular pertussis vaccine, unspecified formulation Deysi Louise MD Work Phone: [facility] 01-13-2000 measles, mumps and rubella virus vaccine Deysi Louise MD Work Phone: [facility] 01-13-2000 trivalent poliovirus vaccine, live, oral Deysi Louise MD Work Phone: [facility] 01-13-2000 varicella virus vaccine Deysi Louise MD Work Phone: [facility] 10-31-1996 diphtheria, tetanus toxoids and acellular pertussis vaccine, unspecified formulation Deysi Louise MD Work Phone: [facility] 10-31-1996 haemophilus influenz ae type b vaccine, conjugate unspecified formulation Deysi Louise MD Work Phone: [facility] 10-31-1996 measles, mumps and rubella virus vaccine Deysi Louise MD Work Phone: [facility] 03-07-1996 DTP-Haemophilus influenzae type b conjugate vaccine Deysi Louise MD Work Phone: [facility] 03-07-1996 hepatitis B vaccine, pediatric or pediatric/adolescent dosage Deysi Louise MD Work Phone: [facility] 03-07-1996 trivalent poliovirus vaccine, live, oral Deysi Louise MD Work Phone: [facility] 1995 DTP-Haemophilus influenzae type b conjugate vaccine Deysi Louise MD Work Phone: [facility] 1995 trivalent poliovirus vaccine, live, oral Deysi Louise MD Work Phone: [facility] 1995 DTP-Haemophilus influenzae type b conjugate vaccine Deysi Louise MD Work Phone: [facility] 1995 hepatitis B vaccine, pediatric or pediatric/adolescent dosage Deysi Louise MD Work Phone: [facility] 1995 trivalent poliovirus vaccine, live, oral Deysi Louise MD Work Phone: [facility] 1995 hepatitis B vaccine, pediatric or pediatric/adolescent dosage Deysi Louise MD Work Phone: [facility] Payers Date Payer Category Payer Private Health Insurance [employer] [id number] 2017 Unknown [facility] MEDICAID [id number] 2017-Present [phone] [address] [place] [address] [id number] 2015 Unknown [id number] 1995 Unknown [id number] 1995 Unknown [id number] 1995 Unknown [id number] [id number] 1995 Unknown [id number] [id number] 1995 Unknown [id number] 1259 1995 Unknown [id number] 1259 1995 Unknown [id number] 1995 Unknown 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 Start: 11-13-2024 End: 12-13-2024 History of Social function [employer] How often to you hav e a drink containing alcohol? Never [employer] How many standard drinks containing alcohol do you have on a typical day? Patient does not drink [employer] (I/We) worried wheth er (my/our) food would run out before (I/we) got money to buy more. Never true [employer] Start: 07-31-2012 Sex Female (finding) Denny [facility] [employer] Functional Status Date Assessment Result Facility [employer] [facility] Clinical Notes 02-01-2020 to 12-13-2024 Shawna Nassar - 12/13/2024 2:10 PM Derek Resendiz, KASSIE - 11/08/2024 1:30 PM Derek Resendiz, C [employer] - 10/31/2024 1:30 PM Roxana Arredondo, C [employer]EL[employer] - 10/17/2024 9:00 AM EDT Note Date & Type Note Facility 12-13-2024 History of Present illness Narrative Reason for Appointment: Patient ID: Femi Kramer is a 29 y.o. female who presents for Pre-op Visit Patient presents today for Pre Op appointment. Patient is scheduled to undergo Endometrial Ablation with Ana on 01-11-[address] Mijares at [facility]. MEDICATIONS No current outpatient medications ALLERGIES [...] nursing note reviewed. Exam conducted with a information services consultant present. Vitals: Estimated body mass index is [...] reviewed, and patient is to proceed to [facility]. Follow Up: Patient is to follow up between 1-2 weeks post op to assess proper healing and recovery from procedure. Documented by Kimberly Resendiz LPN on behalf of: maría gee documented in this encounter [facility] 11-08-2024 History of Present illness Narrative Associated [...] nursing note reviewed. Exam conducted with a information services consultant present. Vitals: Estimated body mass index is [...] Ellis Mijares DO documented in this encounter [facility] 10-31-2024 History of Present illness Narrative Reason for Appointment: Patient ID: Femi Kramer is a 29 y.o. female who presents for No chief complaint on file. Patient presents today for Pre Op/Endometrial Biopsy appointment. Patient is scheduled to undergo Endometrial Ablation with Ana on 11/24/[address] Mijares at [facility]. MEDICATIONS No current outpatient medications ALLERGIES [...] nursing note reviewed. Exam conducted with a information services consultant present. Vitals: Estimated body mass index is [...] reviewed, and patient is to proceed to [facility]. Follow Up: Patient is to follow up between 1-2 weeks post operative to assess proper healing and recovery from procedure. Documented by Kimberly Resendiz LPN on behalf of: Ellis Mijares DO documented in this encounter [facility] 10-17-2024 History of Present illness Narrative Reason [...] Ellis Mijares DO documented in this encounter [facility] 05-31-2020 Note The following Patien t Education Materials have been given to the patient: [employer] [place] 05-31-2020 Note Patient: MÓNICA KRAMER Age: 24 [...] EST benzocaine-menthol 20%-0.5% topical spray: 1 spray(s), [place], Topical, q4hr PRN Pain, Routine, Start date [...] Daily, 90 tab(s), Refill(s) 4, ANY VITAMIN, [facility], 163, cm, 11/07/19 8:38:00 EDT, Height/Length Measured, 71.9, kg, 11/07/19 8:38:00 EDT, Weight Measured valacyclovir 500 mg Tab: 500 mg = 1 tab(s), Oral, q12hr, # 30 tab(s), Refills(s) 1, Pharmacy: [facility], 163, cm, 04/25/20 11:47:00 EST, Height/Length [...] motion. Normal strengt (more content not included)... 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 Substance Abuse Denies Substance Abuse (11/07/2019) DENIES [...] fluid 4. Epidural prn Ludivina Gardner MD [place] Comment on above: Result Comment: Elec tronically Signed By: TAWANDA SARMEINTO, Ludivina J\.br\Date and Time Signed: 05/29/20 16:56 [...] disease exposure for international travelers include: ? Guatemalan encephalitis (JE). ? Meningococcal meningitis (MPSV4 or MCV4). ? Pneumococcal polysaccharide (PPSV23). ? IPV. ? Rabies. ? Typhoid. ? YF. Immunizations that should not be given to international travelers include: ? BCG tuberculosis. ? MMR. ? MMRV. ? Human papillomavirus (HPV4 or HPV2). ? CORNELIA. ? LAIV. Document Released: 06/26/2008 Document Revised: 08/29/2012 Document Reviewed: 07/21/2012 ExitCare? Patient Information ?2013 [employer] [facility]. [place] 02-01-2020 Note Allergy and Immunolo gy Immunizations [...] disease exposure for international travelers include: ? Guatemalan encephalitis (JE). ? Meningococcal meningitis (MPSV4 or MCV4). ? Pneumococcal polysaccharide (PPSV23). ? IPV. ? Rabies. ? Typhoid. ? YF. Immunizations that should not be given to international travelers include: ? BCG tuberculosis. ? MMR. ? MMRV. ? Human papillomavirus (HPV4 or HPV2). ? CORNELIA. ? LAIV. Document Released: 06/26/2008 Document Revised: 08/29/2012 Document Reviewed: 07/21/2012 ExitCare? Patient Information ?2013 [employer] [facility]. [place] Evaluation note Diagnosis Suspected 2019-nCoV infection [facility] note* Diagnosis Well woman exam with routine gynecological exam Routine gynecological examination Menorrhagia with regular cycle [facility]* Diagnosis Pre-op evaluation Menorrhagia with regular cycle [facility] Diagnosis ASCUS with positive high risk HPV cervical [facility]* Diagnosis Nonspecific syndrome suggestive of viral illness- Primary [facility] Diagnosis Symptomatic anemia- Primary History of metrorrhagia Personal history of other genital system and obstetric disorders Menorrhagia with irregular cycle Excessive or frequent menstruation documented in this encounter [facility] note* Diagnosis Pre-op examination Menorrhagia with regular cycle Abnormal uterine bleeding (AUB) Pelvic pain [facility]* Attachments The following attachments cannot be sent through Care Everywhere. * Viral Infections (Lithuanian) [facility] Attachments The following attachments cannot be sent through Care Everywhere. 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 ACP-Advance Directive ACP-Power of Supervisor Carding Latest Code Status on File Code Status Date Activated Date Inactivated Comments Full Code 04/22/2016 9:51 PM 04/23/2016 1:04 PM Date Activated Date Inactivated Comments 04/22/2016 9:51 PM 04/23/2016 1:04 PM Additional Source Comments INFORMATION SOURCE (unrecogn ized section and content) DATE CREATED AUTHOR 12/10/2017 [facility] DATE CREATED AUTHOR AUTHOR'S ORGANIZ ATION 12/15/2017 [facility] DATE CREATED AUTHOR AUTHOR'S ORGANIZ ATION 12/15/2017 [facility] DATE CREATED AUTHOR AUTHOR'S ORGANIZ ATION 01/11/2020 [facility] DATE CREATED AUTHOR AUTHOR'S ORGANIZ ATION 2020 [facility] DATE CREATED AUTHOR AUTHOR'S ORGANIZ ATION 01/01/2021 Revere Anthony [facility] ical Center DATE CREATED AUTHOR AUTHOR'S ORGANIZ ATION 10/16/2022 [facility] pital DATE CREATED AUTHOR AUTHOR'S ORGANIZ ATION 12/14/2024 [facility] Special[facility] EPIC DATE CREATED AUTHOR AUTHOR'S ORGANIZ ATION 12/15/2024 Rachel Fournier spital Care Teams (unrecognized sec tion and content) [facility] Relationship Specialty Start Date End Date Giuliana Mckee DO [address] [place] [address] PCP - General 03/22/16 [employer] [employer] [facility] Specialty Start Date End Date Giuliana Mckee DO [address] [place] [address] PCP - General Internal Medicine 10/14/23 Ellis Mijares DO [address] [place], [place] [address] [place] [address] PCP - [facility] 09/20/23 [facility] [employer] Relationship Specialty Start Date End Date Giuliana Mckee DO [address] [place] [phone] PCP - General Internal Medicine 10/14/23 Ellis Mijares, [address] [place] [address] PCP - [facility] 09/20/23 [facility] [employer] Relationship Specialty Start Date End Date Giuliana Mkcee DO [address] [place] [id number] PCP - General Internal Medicine 10/14/23 Ellis Mijares, DO [address] [place] [id number] PCP - [facility] 09/20/23 [facility] [employer] Relationship Specialty Start Date End Date Giuliana Mckee DO [address] [place] [address] PCP - General Internal Medicine 10/14/23 Ellis Mijares, [facility] [place] [address] PCP - [facility] 09/20/23 [facility] Relationship Specialty Start Date End Date Giuliana Mckee DO [address] [place] [address] PCP - General Internal Medicine 10/14/23 Ellis Mijares, [address] [place] [address] PCP - [facility] 09/20/23 [facility] Relationship Specialty Start Date End Date Giuliana Mckee DO [address] [place] [address] PCP - General 03/22/16 [facility] Relationship Specialty Start Date End Date Giuliana Mckee DO [address] [place] [address] PCP - General 03/22/16 [facility] Relationship Specialty Start Date End Date Giuliana Mckee DO [address] [place] [address] PCP - General Internal Medicine 10/14/23 Ellis Mijares, [address] [place] [address] PCP - [facility] 09/20/23 Reason for Visit (unrecogniz ed section [...] tablet by mouth daily 30 tablet 11/13/2024 Pseudoephedrine-DM -GG 60-15-400 MG TABS Take 1 [...] BE BASED ON THE PRIMARY CLINICAL RECORDS. [facility] [employer] [facility]. provides no warranty or guarantee of the accuracy or completeness of information in this document.
[2024-12-18 06:28] LABS: Basophils Absolute Auto 0.1 10^3/uL (0.0-0.1); Basophils Percent Auto 0.9 % (0.2-2.0); Eosinophils Absolute Auto 0.4 10^3/uL (0.0-0.7); Eosinophils Percent Auto 4.6 % (0.9-7.0); Hematocrit 30.7 % (36.0-48.0); Hemoglobin 8.5 g/dL (12.0-16.0); Immature Granulocytes Abs Auto 0.01 10^3/uL (0.00-0.03); Immature Granulocytes Pct Auto 0.1 % (0.0-0.5); Lymphocytes Absolute Auto 2.4 10^3/uL (1.2-3.8); Lymphocytes Percent Auto 31.3 % (20.5-60.0); Mean Corpuscular HGB Conc 27.7 g/dL (29.9-35.2); Mean Corpuscular Hemoglobin 17.5 pg (26.7-34.0); Mean Corpuscular Volume 63.3 fL (81.0-99.0); Monocytes Absolute Auto 0.5 10^3/uL (0.3-0.8); Monocytes Percent Auto 6.7 % (1.7-12.0); Neutrophils Absolute Auto 4.4 10^3/uL (1.4-6.5); Neutrophils Percent Auto 56.4 % (43.0-75.0); Platelet Count 169 10^3/uL (150-450); Red Blood Count 4.85 10^6/uL (4.20-5.40); Red Cell Distribution Width 21.6 % (11.0-15.0); White Blood Count 7.8 10^3/uL (4.0-11.0)
[2024-12-18 06:41] VITALS: BP 129/76; PULSE 58; TEMP 36.4; O2SAT 100
[2024-12-18 06:44] LABS: HCG Quantitative <1 mIU/mL
[2024-12-18] MEDS: LACTATED RINGER'S SOLUTION 1,000 ML 50 ML IV (06:52)
[2024-12-18] MEDS: LACTATED RINGER'S SOLUTION 1,000 ML 125 ML IV (08:14)
--- NOTE | 2024-12-18 08:17 | PM.ONB ---
Brief Operative Note Date of procedure: 12/18/24 Pre-op diagnosis general: menorrhagia, chronic anemia Post-op diagnosis: same as pre-op Procedure: NAME OF PROCEDURE: [ D&c hysteroscopy with myosure] PROCEDURE: The patient was taken back to the Operating Room where she was prepped and draped in normal sterile fashion after being placed under general anesthesia without difficulty. She was also placed in the dorsal lithotomy position. A weighted speculum was placed in the patient?s vagina. The anterior lip of the cervix was identified and grasped with a single tooth tenaculum. The patient?s uterus was then sounded roughly to [? 8] cm. The patient was then gently dilated using Hegar dilators. The hysteroscope was passed through the patient?s cervix into the uterus. Both ostia were identified. fluffy appearing endometrium. No gross evidence of malignancy, no gross evidence of polyps or fibroids. The myosure apparatus was placed through the scope, The myosure was engaged and endometrial curretting were removed along with endometrial polyp, The hysteroscope was then removed from the uterus. The endometrial curettings were sent out to pathology. The single tooth tenaculum was then removed from the patient's anterior lip of the cervix where excellent hemostasis was noted. All instruments were removed from the patient?s vagina. The patient tolerated the procedure well. Sponge, lap and needle counts were correct times two. The patient was taken to the Recovery Room in stable condition.Room in stable condition. Anesthesia: MAC Surgeon: Ellis Mijares Estimated blood loss (mL): 5 Pathology: other (endometrial currettings) Condition: stable Disposition: PACU Urinary Catheter Management Urinary Catheter Management Straight: Cath placed during this visit: no
[2024-12-18 08:20] VITALS: BP 116/69; PULSE 76; TEMP 36.2; O2SAT 98
--- NOTE | 2024-12-18 08:30 | PC.NURSE ---
Peripad changed for small amount light red drainage
[2024-12-18 08:35] VITALS: BP 112/62; PULSE 66; O2SAT 98
--- NOTE | 2024-12-18 08:44 | PC.NURSE ---
Peripad noted to have scant bleeding
[2024-12-18 09:03] VITALS: BP 121/69; PULSE 63; O2SAT 96
--- NOTE | 2024-12-18 09:05 | PC.NURSE ---
No increase of drainage on peripad from previous
[2024-12-18 09:35] VITALS: BP 127/70; PULSE 80; O2SAT 100
--- NOTE | 2024-12-18 09:55 | PC.NURSE ---
Up to bathroom and voids clear yellow without difficulty; peripad changed for small amount bleeding
== END 2024-12-18 09:45 | disposition home or self-care (01) ==
LOC: SURGOUT 06:15
PROVIDERS: PCP Student in an Organized Health Care Education/Training Program; Visit Provider Obstetrics & Gynecology
PROC: (CPT 00952; principal; 2024-12-18 07:30)
DX: N92.0 Excessive and frequent menstruation with regular cycle (principal); N93.9 Abnormal uterine and vaginal bleeding, unspecified; D64.9 Anemia, unspecified; N71.1 Chronic inflammatory disease of uterus; R10.2 Pelvic and perineal pain; Z98.51 Tubal ligation status; F17.290 Nicotine dependence, other tobacco product, uncomplicated; K21.9 Gastro-esophageal reflux disease without esophagitis; F32.A Depression, unspecified
CPT/HCPCS: 00952; 58558; 36415; 84702; 85025; J0131; J1100; J1885; J2250; J2405; J2704; J3010

== ENCOUNTER 2025-05-15 19:42 | Outpatient (REF) | payer OTHER, SELFPAY ==
--- OUTSIDE RECORDS SUMMARY | 2025-05-15 14:00 | XMS_ITS | Encounter Summary ---
Author Organization [facility] Address [address] [place] [address] Care Team Providers Care Boiler Mechanic Name Role Phone Giuliana Drummond DO Primary Care Provider [phone] Ellis Mijares DO Unavailable Reason for Visit * ReasonCommentsAbnormal Pap Smear Encounter Details DateTypeDepartmentCare Team (Latest Contact Info)Zfyncfqqinq35/25/2025 2:00 PM ESTProcedure Visit [facility] [address] [facility] [place] [address] Ellis Mijares DO [address] [facility] [place] [address] Papanicolaou smear of cervix with atypical squamous cells of undetermined significance (ASC-US) Social History Tobacco UseTypesPacks/DayYears UsedDateSmoking Tobacco: Never Assessed CommentsNoSex and Gender InformationValueDate RecordedSex Assigned at Sqeaqx2410/13/2023 11:34 AM EDTLegal XumUemwkp94/15/2023 11:19 PM EDTGender ElnfncufHbdjye42/24/2024 11:34 AM EDTSexual OrientationNot on filedocumented as of this encounter Last Filed Vital Signs Vital SignReadingTime TakenCommentsBlood Zmaliwcg435/6805/15/2025 2:38 PM EST Pulse--Temperature--Respiratory Rate--Oxygen Saturation--Inhaled Oxygen Concentration--Demjjq81 kg (130 lb 1.9 oz)05/15/2025 2:38 PM ESTHeight--Body Mass Index22.3405 2:07 PM EDTdocumented in this encounter Plan of Treatment DateTypeDepartmentCare Team (Latest Contact Info)Cihcbyhgfri53/03/2026 2:00 PM EDTProcedure Visit [facility]ESGY[facility] [address] [facility] [place] [phone] Ellis Mijares DO [address] [facility] [place] [address] NameTypePriorityAssociated DiagnosesOrder SchedulePap SmearPathology and CytologyRoutine Papanicolaou smear of cervix with atypical squamous cells of undetermined significance (ASC-US) Ordered: 05/15/2025documented as of this encounter Visit Diagnoses Diagnosis Papanicolaou smear of cervix with atypical squamous cells of undetermined significance (ASC-US) documented in this encounter Care Teams Team MemberRelationshipSpecialtyStart DateEnd Date Giuliana Drummond DO [facility] [place] [id number] PCP - GeneralInternal Medicine10/14/23 Ellis Mijares DO [address] [place] [address] [place] [address] PCP - [facility]09/20/23documented as of this encounter
--- OUTSIDE RECORDS SUMMARY | 2025-05-15 19:46 | XMS_ITS | Clinical Summary ---
Author Organization [facility] Address [address] [place] [address] Phone Care Team Providers Care Greeting Card Writer Name Role Phone Giuliana Drummond DO Primary Care Provider + Social History Tobacco UseTypesPacks/DayYears UsedDateSmoking Tobacco: Never Assessed CommentsUnknownSex and Gender InformationValueDate RecordedSex Assigned at Not on fileLegal QdpVetbbc63/26/2022 5:52 PM ESTGender IdentityNot on fileSexual OrientationNot on file Plan of Treatment Not on file Care Teams Team MemberRelationshipSpecialtyStart DateEnd Date Giuliana Drummond DO [facility] [place] [address] PCP - General08/05/20
--- OUTSIDE RECORDS SUMMARY | 2025-05-15 19:46 | XMS_ITS | Clinical Summary ---
[facility] [place] [address] Care Team Providers Care Campaign Director Name Role Phone Vandana Murray DO Primary Care Provider [phone] Medications No known medications Active Problems Patient Care Coordination No te Formatting of this note migh t be different from the original. Nursing Note: 11-24-2019: Lab released both 1st and 2nd Trimester Sequential Blood draws. Had to cancel 2nd trimester. Will need to place order when pt goes to have drawn (CG) No known active problems Social History Tobacco UseTypesPacks/DayYears UsedDateSmoking Tobacco: Never Assessed CommentsUnknownSex and Gender InformationValueDate RecordedSex Assigned at Not on fileLegal LiaVuylgn58/20/2020 8:39 AM EDTGender IdentityNot on fileSexual OrientationNot on file Plan of Treatment Health MaintenanceDue DateLast DoneCommentsMMR (1 of 1 - Standard series) 1996Varicella (1 of 2 - 13+ 2-dose series)2008MenB (1 of 2 - MenB 2- Dose Series Bexsero)2011Hepatitis A (1 of 2 - Risk 2-dose series) 2014Hepatitis B (1 of 3 - 19+ 3-dose series)2014Tetanus Diphtheria and Pertussis Vaccines (2 - Td or Tdap)HPV (1 - 3-dose SCDM series)3COVID-19 ( season)2025FLU (#1)02/19/2025HIB Aged OutNo longer eligible based on patient's age to complete this topicMenACWY Aged OutNo longer eligible based on patient's age to complete this topic NirsevimabAged OutNo longer eligible based on patient's age to complete this topicPneumococcalAged OutNo longer eligible based on patient's age to complete this topicPolioAged OutNo longer eligible based on patient's age to complete this topicRotavirusAged OutNo longer eligible based on patient's age to complete this topic Insurance Care Teams Team MemberRelationshipSpecialtyStart DateEnd Date Vandana Murray DO [address] [place] [address] PCP - GeneralObstetrics Gynecology11/23/19
--- OUTSIDE RECORDS SUMMARY | 2025-05-15 19:46 | XMS_ITS | Clinical Summary ---
Author Organization [facility] Address [address] [place] [address] Care Team Providers Care Claims Agent Right Of Way Name Role Phone Unavailable Primary Care Provider Unavailabl e Social History Tobacco UseTypesPacks/DayYears UsedDateSmoking Tobacco: Never Assessed CommentsUnknownSex and Gender InformationValueDate RecordedSex Assigned at Not on fileLegal XmgHvkuhu54/07/2017 12:38 PM EDTGender IdentityNot on file Sexual OrientationNot on file Plan of Treatment Not on file Insurance
--- OUTSIDE RECORDS SUMMARY | 2025-05-15 19:46 | XMS_ITS | Encounter Summary ---
Author Organization [facility] Address [address] [place] [address] Care Team Providers Care Admissions Supervisor Name Role Phone Giuliana Drummond DO Primary Care Provider [phone] Ellis Mijares DO Unavailable Encounter Details DateTypeDepartmentCare Team (Latest Contact Info)Rzzjguuonqg72/25/2025amboo flowsheet NOMGerardo JONES [address] [place] [address] Ellis Mijares DO [address], [place] [address] Social History Tobacco UseTypesPacks/DayYears UsedDateSmoking Tobacco: Never Assessed CommentsNoSex and Gender InformationValueDate RecordedSex Assigned at Jbfuup6910/13/2023 11:34 AM EDTLegal PujKexqak95/15/2023 11:19 PM EDTGender RwkaqqrfIdxwph01/24/2024 11:34 AM EDTSexual OrientationNot on filedocumented as of this encounter Plan of Treatment DateTypeDepartmentCare Team (Latest Contact Info)Sipjefgycty47/03/2026 2:00 PM EDTProcedure Visit [facility] M[facility]lla JONES [address] [place] [address] Ellis Mijares DO [address], [facility] documented as of this encounter Visit Diagnoses Not on filedocumented in this encounter Care Teams Team MemberRelationshipSpecialtyStart DateEnd Date Giuliana Drummond DO [address] [place] [address] [facility] - [facility]/14/23 Ellis Mijares DO [address] [place] [address] [place] [address] PCP - [facility]09/20/23documented as of this encounter
--- OUTSIDE RECORDS SUMMARY | 2025-05-15 19:46 | XMS_ITS | Clinical Summary ---
Author Organization [facility] Address [address] [place] [address] Care Team Providers Care Ophthalmic Technologist Name Role Phone Giuliana Drummond Primary Care Provider [phone] Ellis Mijares DO Unavailable Allergies No known active allergies Medications No known medications Active Problems ProblemNoted DateDiagnosed DatePapanicolaou smear of cervix with atypical squamous cells of undetermined significance (ASC-US)05/15/2025 Encounters DateTypeDepartmentCare KmfoZnjgbcfhypn24/25/2025 2:00 PM ESTProcedure Visit [facility] Mirella JONES [address] [place] [address] Ellis Mijares DO Papanicolaou smear of cervix with atypical squamous cells of undetermined significance (ASC-US)05/15/2025amboo flowsheet [facility] [address] [facility] [place] [address] Ellis Mijares DO from Last 3 Months Family History Medical HistoryRelationNameCommentsDiabetesMaternal GrandfatherPaul LongHeart failureMaternal GrandfatherPaul LongRelationNameStatusCommentsMaternal GrandfatherPaul LongAlive Social History Tobacco UseTypesPacks/DayYears UsedDateSmoking Tobacco: Never Assessed CommentsNoSex and Gender InformationValueDate RecordedSex Assigned at Fueitv5110/13/2023 11:34 AM EDTLegal TovVbzebp42/15/2023 11:19 PM EDTGender BwtvswfjJppbfl60/24/2024 11:34 AM EDTSexual OrientationNot on file Last Filed Vital Signs Vital SignReadingTime TakenCommentsBlood Ulhuqqnh196/6805/15/2025 2:38 PM EST Pulse--Temperature--Respiratory Rate--Oxygen Saturation--Inhaled Oxygen Concentration--Lxprbw93 kg (130 lb 1.9 oz)05/15/2025 2:38 PM HRXWypmqp647.6 cm (5' 4 )11/08/2024 2:07 PM EDTBody Mass Index22.34011/08/2024 2:07 PM EDT Plan of Treatment DateTypeDepartmentCare Team (Latest Contact Info)Dskwepjbqhr92/03/2026 2:00 PM EDTProcedure Visit [facility] Mirella OBSTEVE [address] [facility] [place] [address] Ellis Mijares DO [address] [facility] [place] [address] Health MaintenanceDue DateLast DoneCommentsCOVID-19 Vaccine ( season) 2025Influenza Vaccine (#1)/02/2020, 04/14/2017Pneumococcal Vaccine: Pediatrics (0 to 5 Years) and At-Risk Patients (6 to 64 Years)Aged Out No longer eligible based on patient's age to complete this topic Insurance Care Teams Team MemberRelationshipSpecialtyStart DateEnd Date Giuliana Drummond DO [address] [place] [address] [facility] - [facility]23 Ellis Mijares DO [address] [place] [address] [place] [address] PCP - [facility]09/20/23
--- OUTSIDE RECORDS SUMMARY | 2025-05-15 19:46 | XMS_ITS | Clinical Summary ---
Author Organization [facility] Address [address] [facility], [address] [place] [address] Care Team Providers Care Supervisor Speech Name Role Phone Giuliana Drummond Primary Care Provider Allergies No known active allergies Medications MedicationSigDispense QuantityRefillsLast FilledStart DateEnd DateStatus Rocslhzigsxisnf-KT-RC 60-15-400 MG TABS Take 1 tablet by mouth every 4-6 hours as needed (not to exceed 4 tablets in 24 hours) 30 tablet 5Active megestrol (MEGACE) 20 MG tablet Take 1 tablet by mouth 2 times daily5Active Active Problems ProblemNoted DateDiagnosed GcibAkufjzc44/22/2020Acid orzzqa1503/06/2013 Resolved Problems ProblemNoted DateDiagnosed DateResolved DateLOC (loss of consciousness) Head bnbchb09Headache Bcafemowjbumeyc73 Immunizations ImmunizationAdministration DatesNext DueDTP/HiB03/07/1996,1995,1995 DTaP rrcffei0601/13/2000,10/31/1996Hep B, ENGERIX-B, RECOMBIVAX-HB, (age - 19y), IM, 0.5mL03/07/1996,1995,1995Hib xchsdcg2110/31/1996Influenza Virus Ovqkdra5405/29/2020,04/14/2017MMR, PRIORIX, M-M-R II, (age 12m+), SC, 0.5mL 01/13/2000,10/31/1996Polio OPV01/13/2000,03/07/1996,1995,1995Rabies 04/29/2023TDaP, ADACEL (age 10y-64y), BOOSTRIX (age 10y+), IM, 0.5mL05/29/2020, 03/08/2020,04/22/2016Varicella, VARIVAX, (age 12m+), SC, 0.5mL01/13/2000 Family History Medical HistoryRelationNameCommentsDiabetesMaternal GrandfatherHeart Disease Maternal GrandfatherRelationNameStatusCommentsMaternal Grandfather Social History Tobacco UseTypesPacks/DayYears UsedDateSmoking Tobacco: NeverSmokeless Tobacco: NeverAlcohol UseStandard Drinks/WeekCommentsNo0 (1 standard drink = 0.6 oz pure alcohol)AUDIT-CAnswerDate RecordedQ1: How often do you have a drink containing alcohol?Never12/13/2024Q2: How many drinks containing alcohol do you have on a typical day when you are drinking?Patient does not drink12/13/2024Q3: How often do you have six or more drinks on one occasion?Never12/13/2024Overall Financial Resource Strain (CARDIA)AnswerDate RecordedHow hard is it for you to pay for the very basics like food, housing, medical care, and heating?Not hard at all 05/10/2023HQ-2AnswerDate RecordedPHQ-9 Total Hultk93606/29/2022Hunger Vital Sign AnswerDate RecordedWithin the past 12 months, you worried that your food would run out before you got the money to buymore.Never true05/10/2023Within the past 12 months, the food you bought just didn't last and you didn't have money to get more.Never true05/10/2023RAPARE - TransportationAnswerDate RecordedLack of Transportation (Medical)Not on file05/10/2023In the past 12 months, has lack of transportation kept you from meetings, work, or from getting things needed for daily living?No05/10/2023Housing Stability Vital SignAnswerDate RecordedUnable to Pay for Housing in the Last YearNot on file05/10/2023Number of Places Lived in the Last YearNot on file05/10/2023In the last 12 months, was there a time when you did not have a steady place to sleep or slept in ashelter (including now)?No05/10/2023Food InsecurityAnswerDate RecordedWithin the past 12 months, you worried that your food would run out before you got the money to buymore.1 05/10/2023Within the past 12 months, the food you bought just didn't last and you didn't have money to get more.Interpersonal Safety Domain Source: IP Abuse ScreeningAnswerDate RecordedPhysical pskkcWawfrh12/25/2025Verbal abuse Qldpvz6112/13/2024Emotional ctzjcXgzccj98/25/2025Financial armpqVqjjxf32/25/2025 Sexual btcukXzgieo53/25/2025CommentsNoSex and Gender InformationValue Date RecordedSex Assigned at BirthNot on fileLegal GxmQquxzq79/10/2013 1:20 PM ESTGender IdentityNot on fileSexual OrientationNot on file Last Filed Vital Signs Vital SignReadingTime TakenCommentsBlood Zfyavrtw767/7106 8:11 PM EDT Pthga378412/13/2024 8:13 PM QHHVdrmzgxoxdr08.8 ??C (98.3 ??F)12/13/2024 8:11 PM EDTRespiratory Caog733912/13/2024 8:13 PM EDTOxygen Zqchqayqtl53%12/13/2024 8:18 PM EDTInhaled Oxygen Concentration--Ebctpy60.2 kg (126 lb)12/13/2024 5:37 PM EDT Tjojyj636.6 cm (5' 4 )12/13/2024 5:37 PM EDTBody Mass Index21.63012/13/2024 5:37 PM EDT Plan of Treatment Health MaintenanceDue DateLast DoneCommentsVaricella vaccine (2 of 2 - 2-dose childhood series)Depression Svuyul4708/09/2007HIV screen 2010Hepatitis C pknlfs0408/09/2013Pap smear/10/2019Flu vaccine (#1)512/02/2020, 04/14/2017COVID-19 Vaccine (1 - season) 2025DTaP/Tdap/Td vaccine (9 - Td or Tdap), 03/08/2020, 04/22/2016, Additional history existsHepatitis B wrmbxwmNmancpcqr81/17/1996, 1995, 1995Hib inecyvrGygloydwy63/13/1997, 03/07/1996, 1995, Additional history existsPolio djguzqyPhwgdcdnb00/25/2000, 03/07/1996, 1995, Additional history existsHPV vaccine (No Doses Required)Completed Hepatitis A vaccineAged OutNo longer eligible based on patient's age to complete this topicMeningococcal (ACWY) vaccineAged OutNo longer eligible based on patient's age to complete this topicMeningococcal B vaccineAged OutNo longer eligible based on patient's age to complete this topicPneumococcal 0-49 years VaccineAged OutNo longer eligible based on patient's age to complete this topic Procedures Procedure NamePriorityDate/TimeAssociated DiagnosisCommentsHM PAP SMEARRoutine 10/24/2019from Last 3 Months or Most Recently Relevant to Health Maintenance Results * HM PAP SMEAR (10/24/2019) Narrative Authorizing ProviderResult TypeResult StatusHistorical Provider MDHEALTH MAINTENANCEFinal Result from Last 3 Months or Most Recently Relevant to Health Maintenance Insurance Advance Directives * Full Code (Latest Code Status on File) Date ActivatedDate WniffwbepmfRraulayn53/2/2016 9:51 PM04/23/2016 1:04 PM Care Teams Team MemberRelationshipSpecialtyStart DateEnd Date Giuliana Drummond DO [facility] [place] [address] PCP - Hobevgj58/2/16
--- OUTSIDE RECORDS SUMMARY | 2025-05-15 19:46 | XMS_ITS | CCD ---
Author Organization [facility] Care Team Providers Care Slitting Machine Feeder Name Role Phone Marcanthony, Aimee Unavailable Unavailable Marcanthony, Aimee Unavailable Unavailable DOCTOR, OUT OF TOWN Unavailable Unavailable Marcanthony, Aimee Unavailable Unavailable DOCTOR, OUT OF TOWN Unavailable Unavailable Marcanthony, Aimee Unavailable Unavailable Marcanthony, Aimee Unavailable Unavailable Marcanthony, Aimee Unavailable Unavailable Latha, Edward E Unavailable Unavailable Latha, Edward E Unavailable Unavailable JOSEFINA, NAVITA Unavailable Unavailable JOSEFINA, NAVITA Unavailable Unavailable Giuliana Mckee DO Primary Care Provider [facility] BOSCH Primary Care Unavailable MARYANA ., DR PA Consulting Unavailable MARYANA ., DR PA Admitting Unavailable MARYANA ., DR PA Attending Unavailable MISC, DR BOSCH Primary Care Unavailable MARYANA ., DR PA Admitting Unavailable MARYANA ., DR PA Attending Unavailable MARYANA ., DR PA Consulting Unavailable ZIEBER, DR CALLIE Bhagat Consulting Unavailable Giuliana Mckee DO Primary Care Provider [phone] Ellis Mijares DO Unavailable Giuliana Mckee DO Primary Care Provider [phone] ELLIS MIJARES Attending Unavailable ELLIS MIJARES Attending Unavailable ELLIS MIJARES Attending Unavailable ELLIS MIJARES Attending Unavailable MAURICIO FUNES Attending Unavailable GIULIANA MCKEE Primary Care Unavailable DEYSI LOUISE Attending Unavailable GIULIANA MCKEE Primary Care Unavailable Allergies Allergy ClassificationReported Allergen(s)Allergy TypeDate of OnsetReaction(s) Facility (2 sources)No Known AllergiesDrug allergy (disorder)86-90-3286[facility]bp[facility]iPaul[facility] Medications Current Medications MedicationDrug Class(es)DatesSig (Normalized)Sig (Original)acetaminophen 325 mg oral tablet (1 source)Start: 03-30-2852ejgd 2 tablets by mouth every four hours as needed for painacetaminophen (TYLENOL) 325 MG tablet Take 2 tablets by mouth every 4 hours as needed for Pain or Fever 120 tablet 3 04/23/2016 Activedextromethorphan hydrobromide 15 mg / guaiFENesin 400 mg / pseudoephedrine hydrochloride 60 mg oraltablet (2 sources)alpha-Adrenergic Agonist, Uncompetitive O-izcqtc-Y-aspartate Receptor Antagonist, Sigma-1 AgonistStart: 29-44-5304ffka 1 tablet by mouth every four to six hours as needed, then take 4 tablets by mouth every twenty-four hours as gjsulfTbfpecuyqtdwkly-MB-BK 60-15-400 MG TABS Take 1 tablet by mouth every 4-6 hours as needed (not to exceed 4 tablets in 24 hours) 30 tablet 11/13/2024 Activeloratadine 10 mg oral tablet (2 sources)Start: 11-13-2024 End: 04-61-5559qpsl 1 tablet by mouth once dailyloratadine (CLARITIN) 10 MG tablet Take 1 tablet by mouth daily 30 tablet 11/13/2024 12/13/2024 Active megestrol acetate 20 mg oral tablet (6 sources)ProgestinStart: 12-13-2024 End: 45-21-7787dmxw 1 tablet by mouth twice daily, then take 1 tablet by mouth twice dailymegestrol (Megace) 20 MG tablet Indications: Abnormal uterine bleeding (AUB) Take 1 tablet (20 mg total) by mouth 2 (two) times a day. Take 1 tablet 2 times daily 60 tablet 12/14/2024 01/13/2025 Activesertraline 50 mg oral tablet (1 source)Serotonin Reuptake InhibitorStart: 05-18-8304ednd 1 tablet by mouth once dailysertraline (ZOLOFT) 50 MG tablet Take 1 tablet by mouth daily 30 tablet 5 10/11/2019 Active Problems Active Problems Problem ClassificationProblemDateDocumented DateEpisodic/ChronicAbdominal pain (1 source)Pain in pelvis; Translations: [Pelvic and perineal pain]12-13-2024 EpisodicAnxiety disorders (3 sources)Anxiety; Translations: [Anxiety disorder, unspecified]Onset: 340610-91-2221YfcgowyBeislv of cervix (1 source)Atypical squamous cells of undetermined significance on cervical Papanicolaou smear; Translations: [Atypical squamous cells of undetermined significance on cytologic smear of cervix (ASC-US)]65-90-3790UrkhxsqlMrddmmsuxn and other anemia (1 source)Anemia; Translations: [Anemia, unspecified]52-20-6527Xmmurezs Deficiency and other anemia (1 source)Anemia, unspecified; Translations: [Anemia, unspecified]Onset: 97-07-4790RcmojijjLtrjxlgjws disorders (3 sources)Gastroesophageal reflux disease; Translations: [Gastro-esophageal reflux disease without esophagitis]Onset: 539569-23-5279Actbega Immunizations and screening for infectious disease (1 source)Suspected disease caused by 2019-nCoV; Translations: [Suspected 2019- nCoV infection]EpisodicMenstrual disorders (10 sources)Excessive and frequent menstruation with irregular cycle; Translations: [Menorrhagia]Onset: 74-85-5178TqerdkmFxqip female genital disorders (1 source)Abnormal uterine bleeding; Translations: [Abnormal uterine and vaginal bleeding, unspecified]79-47-7499IqrjxtkDrzac female genital disorders (1 source)H/O: inter-menstrual bleeding; Translations: [Personal history of other diseases of the female genital tract]65-53-2205KpanljopHwvtb female genital disorders (1 source)Personal history of other diseases of the female genital tract; Translations: [Personal history of other diseases of the female genital tract] Onset: 66-43-6245RixtbdvgAwkipkwiqwjt (5 sources)Encounter for screening for malignant neoplasm of cervix; Translations: [Z12.4 - Encounter for screening for malignant neoplasm of cervix] Onset: 13-45-4049EfbcmtquQtrxbxhbtgmr (2 sources)37 weeks gestation of ; Translations: [35 weeks gestation of ]Onset: 28-46-6460Gqfoe infection (2 sources)Viral syndrome; Translations: [Viral infection, unspecified]Onset: 935706-76-9154Wcyltkgp Past or Other Problems Problem ClassificationProblemDateDocumented DateEpisodic/ChronicComa; stupor; and brain damage (3 sources)Loss of consciousness; Translations: [Unspecified coma]Onset: 04-22-2016 Resolved: 703773-05-1499FovdjfuzDoccbkuh; including migraine (3 sources)Headache; Translations: [Headache]Onset: 12-07-2013 Resolved: 544543-03-5270ZeormgyzQgnbuo and/or delivery (5 sources)Encounter for supervision of normal first , third trimester; Translations: [Single live ]Onset: 37-58-5336WzhdqzseEZ-related trauma to perineum and vulva (1 source)First degree perineal laceration during delivery; Translations: [O70.0 - First degree perineal laceration during delivery]Onset: 89-57-7056Bkiglhqa Other bone disease and musculoskeletal deformities (3 sources)Costal chondritis; Translations: [Chondrocostal junction syndrome [Tietze]]Onset: 03-06-2013 Resolved: 960995-19-1833BisojkiuRiimy injuries and conditions due to external causes (3 sources)Injury of head; Translations: [Unspecified injury of head, initial encounter]Onset: 04-22-2016 Resolved: 935161-27-9509BcqkiuejYzjqfwjkuacsot and other problems of amniotic cavity (1 source)Full-term premature rupture of membranes, onset of labor within 24 hours of rupture; Translations: [O42.02 - Full-term premature rupture of membranes, onset of labor within 24 hours of rupture]Onset: 77-82-3595Uzxhxvzn Umbilical cord complication (1 source)Labor and delivery complicated by cord around neck, without compression, not applicable or unspecified; Translations: [O69.81X0 - Labor and delivery complicated by cord around neck, without compression, not applicable or unspecified]Onset: 33-77-7478Ewvmhofz Results Test NameValueInterpretationReference RangeFacilityPATHOLOGY REQUEST FOR LAB CORPon 24-17-0191KSCBIWBMB REQUEST FOR LAB [facility] HealthcareComment on above: See report. Scanned copy available in EMR.EMCFOhioHealth Mansfield HospitalALL CBC WITH AUTO DIFFon 57-67-9374FMNDJQHNO ABSOLUTE AUTO0.1[facility] Basophils/100 WBC (Bld)0.9 %0.2 - 2.0 %NOMS HealthcareEosinophils/100 WBC (Bld) 4.6 %0.9 - 7.0 %NOMS HealthcareErythrocyte distribution width (RBC) [Ratio]21.6 %High11.0 - 15.0 %[facility]OM[facility] HealthcareHematocrit (Bld) [Volume fraction]30.7 %Low36.0 - 48.0 %[facility]OM[facility] HealthcareHemoglobin (Bld) [Mass/Vol]8.5 g/dLLow12.0 - 16.0 g/dL NOMS HealthcareIMMATURE GRANULOCYTES ABS AUTO0.01NOMS HealthcareImmature granulocytes/100 WBC (Bld)0.1 %0.0 - 0.5 %[facility] HealthcareInterpretation and review of laboratory resultsAbnormalNONM HealthcareLYMPHOCYTES ABSOLUTE AUTO2.4 [facility]OM[facility] HealthcareLymphocytes/100 WBC (Bld)31.3 %20.5 - 60.0 %NOMCox NorthH (RBC) [Entitic mass]17.5 pgLow26.7 - 34.0 pgNOScotland County Memorial HospitalHC (RBC) [Mass/Vol] 27.7 g/dLLow29.9 - 35.2 g/dLCox SouthMCV (RBC) [Entitic vol]63.3 fLLow81.0 - 99.0 fLNOMetropolitan Saint Louis Psychiatric CenterMONOCYTES ABSOLUTE AUTO0.5NOMS HealthcareMonocytes/100 WBC (Bld)6.7 %1.7 - 12.0 %NOM HealthcareNEUTROPHILS ABSOLUTE AUTO4.4NOMS HealthcareNeutrophils/100 WBC (Bld)56.4 %43.0 - 75.0 %NOMDoctors Hospital Of SpringfieldTBH EO #0.4 NOMS HealthcareTB FRC550BIRX [facility]row County HospitalTB RBC4.85NOMS [facility] HospitalTB WBC7.8NOMS HealthcareCLINISYNCNOMS HealthcareALL TYPE AND SCREENon 11-99-1620ZSR and Rh group Nom (Bld)Blood group A Rh(D) positiveFirelands Regional Medical Center ,CLINISYNCNONM HealthcareUS PELVIS W/ TRANSVAGINALon 21-83-[address] [address] Ultrasound Report Signed Patient: FEMI KRAMER MR#: [id number] : 1995 Acct:[id number] Age/Sex: 29 / F ADM Date: 12/15/24 Loc: US Attending Dr: Ellis Mijares D.O. Ordering Physician: Ellis Mijares D.O. Date of Service: 12/15/24 Procedure(s): US pelvis w/ transvaginal Accession Number(s): [id number] cc: Ellis Mijares D.O.; Giuliana Mckee M.D. [place] [address] Patient Name: FEMI KRAMER MRN: [id number] date: 1995 Sex: F Assigned Patient Location: Current Patient Location: US Accession/Order Number: [id number] Exam Date: 12/15/2024 15:28 Report Date: 12/15/2024 [...] Jr., D.O. 12/15/2024 3:35 PM Dictation Location: [place] [address] Electronically authenticated by: [id number] Y Date: 12/15/2024 15:35 Dictated By: Servando Benavidez M.D. Signed By: 12/15/24 1538 DD/ TD/TT: Human Resources Office Assistant:TBHRadiology, Radiologist, - 12/15/2024 [place] [address] Ultrasound Report Signed Patient: FEMI KRAMER MR#: [id number] : 1995 Acct:[id number] Age/Sex: 29 / F ADM Date: 12/15/24 Loc: US Attending Dr: Ellis Mijares D.O. Ordering Physician: Ellis Mijares D.O. Date of Service: 12/15/24 Procedure(s): US pelvis w/ transvaginal Accession Number(s): [id number] cc: Ellis Mijares D.O.; Giuliana Mckee M.D. The [place] [id number] Patient Name: FEMI KRAMER MRN: [id number] date: 1995 Sex: F Assigned Patient Location: US Current Patient Location: US Accession/Order Number: [id number] Exam Date: 12/15/2024 15:28 Report Date: 12/15/2024 [...] Jr., D.O. 12/15/2024 3:35 PM Dictation Location: [place] [address] Electronically authenticated by: [id number] Y Date: 12/15/2024 15:35 Dictated By: Servando Benavidez M.D. Signed By: 12/15/24 1538 DD/ 34 TD/TT: Human Resources Office Assistant: CEZAR MosleyRadiology Study observation (narrative)CEZAR HealthcareUS PELVIS W/ TRANSVAGINALOrdered By: Radiologist Radiology on 40-69-2977HFFZ Healthcare Work Phone: XR CHEST 2Von 80-27-1923[place] [address] XRay Report Signed Patient: FEMI KRAMER MR#: [id number] : 1995 Acct:[id number] Age/Sex: 29 / F ADM Date: 12/15/24 Loc: [facility] Attending Dr: Ellis Mijares D.O. Ordering Physician: Ellis Mijares D.O. Date of Service: 12/15/24 Procedure(s): XR chest 2V Accession Number(s): [id number] cc: Ellis Mijares D.O.; Giuliana Mckee M.D. [place] [address] Patient Name: FEMI KRAMER MRN: [id number] date: 1995 Sex: F Assigned Patient Location: [facility] Current Patient Location: Accession/Order Number: [id number] Exam Date: 12/15/2024 15:27 Report Date: 12/15/2024 15:28 At the request of: ELLIS MIJARES DO Procedure: XR chest 2V Chest 2 views CLINICAL HISTORY: Preop exam COMPARISON: None FINDINGS: Heart normal in size. Lungs are clear. No free air. XR/XR chest 2V IMPRESSION: NO ACUTE CARDIOPULMONARY ABNORMALITY. Impression dictated by: Servando Benavidez Jr., D.O. 12/15/2024 3:28 PM Dictation Location: [place] [address] Electronically authenticated by: [id number] Y Date: 12/15/2024 15:28 Dictated By: Servando Benavidez M.D. Signed By: 12/15/24 1530 DD/ TD/TT: Human Resources Office Assistant:Clay Salazar MD - 12/15/2024 The [place] [id number] XRay Report Signed Patient: FEMI KRAMER MR#: [id number] : 1995 Acct:[id number] Age/Sex: 29 / F ADM Date: 12/15/24 Loc: [facility] Attending Dr: Ellis Mijares D.O. Ordering Physician: Ellis Mijares D.O. Date of Service: 12/15/24 Procedure(s): XR chest 2V Accession Number(s): [id number] cc: Ellis Mijares D.O.; Giuliana Mckee M.D. The [address] [address] Patient Name: FEMI KRAMER MRN: [facility]:[id number] date: 1995 Sex: F Assigned Patient Location: [facility] Current Patient Location: US Accession/Order Number: [id number] Exam Date: 12/15/2024 15:27 Report Date: 12/15/2024 15:28 At the request of: ELLIS MIJARES DO Procedure: XR chest 2V Chest 2 views CLINICAL HISTORY: Preop exam COMPARISON: None FINDINGS: Heart normal in size. Lungs are clear. No free air. XR/XR chest 2V IMPRESSION: NO ACUTE CARDIOPULMONARY ABNORMALITY. Impression dictated by: Servando Benavidez Jr., D.O. 12/15/2024 3:28 PM Dictation Location: [place] [address] Electronically authenticated by: [id number] Y Date: 12/15/2024 15:28 Dictated By: Servando Benavidez M.D. Signed By: 12/15/24 1530 DD/ 27 TD/TT: Human Resources Office Assistant: CEZAR HealthcareRadiology Study observation (narrative)NOMS HealthcareXR CHEST 2V Ordered By: Radiologist Radiology on 27-16-2465W[facility] Work Phone: bMPon [phone] gap [Moles/Vol]16 mmol/L9 - 17 mmol/LBon [facility] SystemCalcium [Mass/Vol]9.1 mg/dL8.6 - 10.4 mg/dLBon [facility] SystemChloride [Moles/Vol]103 mmol/L98 - 107 mmol/LBon [facility] SystemCO2 [Moles/Vol]20 mmol/L20 - 31 mmol/LBon [facility] Creatinine [Mass/Vol]0.7 mg/dL0.5 - 0.9 mg/dLBon [facility] SystemEst, Glom Filt Rate- PINFBon [facility] SystemComment on above: These results are not intended [...] therapy that affects renal tubular secretion. Glucose [Mass/Vol]100 mg/xOWnsc12 - 99 mg/dLBon [facility] Interpretation and review of laboratory resultsAbnormalBon [facility] Potassium [Moles/Vol]3.7 mmol/L3.7 - 5.3 mmol/LBon [facility] SystemSodium [Moles/Vol]139 mmol/L135 - 144 mmol/LBon [facility] SystemUrea nitrogen [Mass/Vol]13 mg/dL6 - 20 mg/dLBon [facility] SystemBasic Metabolic Profon 16-06-3609Rdvmn gap [Moles/Vol]16 mmol/LNormal9-17Ohiohealth Mansfield HospitalComment on above:Performed By: #### PT, BMP, TSH, CDP #### [facility] [address] [place] [address] Assistant Principal: Pillo Alvarado MDCalcium [Mass/Vol]9.1 mg/dLNormal8.6-10.4Ohiohealth Mansfield HospitalComment on above:Performed By: #### PT, BMP, TSH, CDP #### [facility] [address] [place], [place] [id number] Assistant Principal: RUBY Chmabershloride [Moles/Vol]103 mmol/ZMbsgkb57-958YvgkoOhiohealth Mansfield HospitalComharbor beach community hospital on above:Performed By: #### PT, BMP, TSH, CDP #### [facility] [address] [place], [place] [id number] Assistant Principal: RUBY ChambersO2 [Moles/Vol]20 mmol/LSvegur88-44GujayOhiohealth Mansfield HospitalComharbor beach community hospital on above:Performed By: #### PT, BMP, TSH, CDP #### [facility] [address] [place] [address] Assistant Principal: RUBY Chambersreatinine [Mass/Vol]0.7 mg/dLNormal0.5-0.9[facility] on above:Performed By: #### PT, BMP, TSH, CDP #### [facility] [address] [place], [place] [id number] Assistant Principal: Pillo Alvarado MDGFR/1.73 sq M.predicted among non-blacks MDRD (S/P/Bld) [Vol rate/Area]mL/min/{1.73_m2}Normal>60[facility] Mansfield HospitalComharbor beach community hospital on above:Result Comment: These results are not intended for [...] or following therapy that affects renal tubular secretion.Performed By: #### PT, BMP, TSH, CDP #### [facility] [address] [place], [place] [address] Assistant Principal: Pillo Alvarado MDGlucose [Mass/Vol]100 mg/iKBkju77-29LmvlvLakeHealth TriPoint Medical CenterComharbor beach community hospital on above:Performed By: #### PT, BMP, TSH, CDP #### [facility] [address] [place], [place] [address] Assistant Principal: ADRIAN Chambersotassium [Moles/Vol]3.7 mmol/LNormal3.7-5.3MLakeHealth TriPoint Medical CenterComment on above:Performed By: #### PT, BMP, TSH, CDP #### [facility] [address] [place] [id number] Assistant Principal: CHETNA Chambersodium [Moles/Vol]139 mmol/TXqqrzw879-155JkrqvOhiohealth Mansfield HospitalComment on above:Performed By: #### PT, BMP, TSH, CDP #### [facility] [address] [place] [phone] Assistant Principal: Pillo Alvarado MDUrea nitrogen [Mass/Vol]13 mg/dLNormal6-20Ohio[facility] Mansfield HospitalComment on above:Performed By: #### PT, BMP, TSH, CDP #### [facility] [address] [place] [address] Assistant Principal: Pillo Alvarado [facility] TULSABC with Auto Differentialon 73-98-2225Ozevjvaic (Bld) [#/Vol]0.03 10*3/uLBon Secours Peoples HospitalBasophils/100 WBC (Bld)1 %0 - 2 %[facility] HospitalEosinophils (Bld) [#/Vol]0.13 10*3/uLBon Secours Peoples HospitalEosinophils/100 WBC (Bld)3 %0 - 5 %[facility]aculate HospitalErythrocyte distribution width (RBC) [Ratio]18.2 %High12.1 - 15.2 %[facility] Hematocrit (Bld) [Volume fraction]24.5 %Low36.0 - 46.0 %Bon [facility] Hemoglobin (Bld) [Mass/Vol]6.7 g/dLCritically low12.0 - 16.0 g/dLBon SecAdena Fayette Medical CenterImmature granulocytes (Bld) [#/Vol]0 10*3/uLBon SecAdena [facility] Center Immature granulocytes/100 WBC (Bld)0 %0 - 5 %[facility] Interpretation and review of laboratory resultsAbnormalBon SecAdena Fayette Medical Center Lymphocytes/100 WBC (Bld)33 %15 - 40 %Bon [facility] SystemLymphocytes/100 WBC (Bld)1.68 %Bon [facility] DaytonH (RBC) [Entitic mass]16.3 pgLow26.0 - 34.0 pgBon SecSelect Medical Specialty Hospital - Cleveland-FairhillHC (RBC) [Mass/Vol]27.3 g/dLLow31.0 - 37.0 g/dL Bon [facility] DaytonV (RBC) [Entitic vol]59.5 fLLow80.0 - 100.0 fLBon [facility] SystemMonocytes/100 WBC (Bld)6 %4 - 8 %[facility] Monocytes/100 WBC (Bld)0.32 %Bon [facility] HealthMorphology Herminio (Bld) [Interp]SLIGHT ANISOCYTOSISBon SecAdena Fayette Medical CenterMorphology Herminio (Bld) [Interp] MODERATE MICROCYTOSISBon SecAdena Fayette Medical CenterMorphology Herminio (Bld) [Interp] MODERATE HYPOCHROMIABon SecAdena Fayette Medical CenterMorphology Herminio (Bld) [Interp] Decreased PlateletsBon [facility] Health SystemNeutrophils/100 WBC (Bld)58 %47 - 75 %[facility] Immaculate HospitalPlatelet mean volume (Bld) [Entitic vol]Abnormal6.0 - 12.0 fLBon SecOuachita and Morehouse parishes HealthPlatelets (Bld) [#/Vol]160 10*3/uLBon [facility]ours [facility] HealthRBC (Bld) [#/Vol]4.12 10*6/uL4.00 - 5.20 m/uLBon [facility] SystemSegmented neutrophils/100 WBC (Bld)2.98 %Bon [facility] SystemWBC other (Bld) [#/Vol]5.1[facility] Peoples HospitalBon SecAdena Fayette Medical CenterCBC with Diffon 17-16-6271Rjpcyigemh Herminio (Bld) [Interp]SLIGHTNormalOhiohealth Mansfield Hospital Comment on above:Result Comment: ANISOCYTOSIS MODERATE MICROCYTOSIS MODERATE HYPOCHROMIA Decreased PlateletsPerformed By: #### PT, BMP, TSH, CDP #### [facility] [address] [place] [address] Assistant Principal: Elizabeth Chambers. Basophil0.03 k/uLNormal0.00-0.20Ohio[facility] Mansfield HospitalComment on above:Performed By: #### PT, BMP, TSH, CDP #### [facility] [address] [place] [address] Assistant Principal: Elizabeth Chambers.Imm.Granulocyte0.00 k/uLNormal0.00-0.30Ohio[facility] Mansfield HospitalComment on above:Performed By: #### PT, BMP, TSH, CDP #### [facility] [address] [place] [address] Assistant Principal: Elizabeth Chambers.Neutrophil (Seg)2.98 k/uLNormal2.5-7.0Ohio[facility] Mansfield HospitalComment on above:Performed By: #### PT, BMP, TSH, CDP #### [facility] [address] [place] [address] Assistant Principal: Pillo Alvarado MDBasophils/100 WBC (Bld)1 %Normal0-2MercLong Beach Doctors HospitalComment on above:Performed By: #### PT, BMP, TSH, CDP #### [facility] [address] [place] [address] Assistant Principal: Pillo Alvarado MDEosinophils (Bld) [#/Vol]0.13 10*3/uLNormal 0.00-0.40Ohio[facility] Mansfield HospitalComment on above:Performed By: #### PT, BMP, TSH, CDP #### [facility] [address] [place] [address] Assistant Principal: Pillo Alvarado MDEosinophils/100 WBC (Bld)3 %Normal0-5Ohio[facility] Mansfield HospitalComment on above:Performed By: #### PT, BMP, TSH, CDP #### [facility] [address] [place] [address] Assistant Principal: Pillo lAvarado MDErythrocyte distribution width (RBC) [Ratio]18.2 % High12.1-15.2MLakeHealth TriPoint Medical CenterComment on above:Performed By: #### PT, BMP, TSH, CDP #### [facility] [address] [place] [address] Assistant Principal: Pillo Alvarado MDHematocrit (Bld) [Volume fraction]24.5 %Low 36.0-46.0[facility] Mansfield HospitalComment on above:Performed By: #### PT, BMP, TSH, CDP #### [facility] [address] [place] [address] Assistant Principal: Pillo Alvarado MDHemoglobin (Bld) [Mass/Vol]6.7 g/dLCritically low 12.0-16.0[facility] Mans[facility] HospitalComment on above:Performed By: #### PT, BMP, TSH, CDP #### [facility] [address] [place] [address] Assistant Principal: Pillo Alvarado MDImmature granulocytes/100 WBC (Bld)0 %Normal0-5 [facility] Mans[facility] HospitalComment on above:Performed By: #### PT, BMP, TSH, CDP #### [facility] [address] [place] [address] Assistant Principal: Pillo Alvarado MDLymphocytes (Bld) [#/Vol]1.68 10*3/uLNormal 1.00-4.80Ohio[facility] Mansfield HospitalComment on above:Performed By: #### PT, BMP, TSH, CDP #### [facility] [address] [place] [phone] Assistant Principal: Susan Chambershocytes/100 WBC (Bld)33 %Ljfvoe33-74FktlmOhiohealth Mansfield HospitalComment on above:Performed By: #### PT, BMP, TSH, CDP #### [facility] [address] [place] [phone] Assistant Principal: BLAISE Chambers (RBC) [Entitic mass]16.3 pgLow26.0-34.0[facility] Mansfield HospitalComment on above:Performed By: #### PT, BMP, TSH, CDP #### [facility] [address] [place] [address] Assistant Principal: BLAISE ChambersC (RBC) [Mass/Vol]27.3 g/dLLow31.0-37.0[facility] Mans[facility] HospitalComment on above:Performed By: #### PT, BMP, TSH, CDP #### [facility] [address] [place] [phone] Assistant Principal: SINAI ChambersCV (RBC) [Entitic vol]59.5 fLLow80.0-100.0[facility] Mans[facility] HospitalComment on above:Performed By: #### PT, BMP, TSH, CDP #### [facility] [address] [place] [phone] Assistant Principal: SINAI Chambersonocytes (Bld) [#/Vol]0.32 10*3/uLNormal0.00-1.00 [facility] HospitalComment on above:Performed By: #### PT, BMP, TSH, CDP #### [facility] [address] [place] [phone] Assistant Principal: SINAI Chambersonocytes/100 WBC (Bld)6 %Normal4-8Ohio[facility] Mansfield HospitalComment on above:Performed By: #### PT, BMP, TSH, CDP #### [facility] [address] [place], [place] [id number] Assistant Principal: SINAI ChambersPVAbnormalNormal6.0-12.0[facility] Comment on above:Performed By: #### PT, BMP, TSH, CDP #### [facility] [address] [place] [address] Assistant Principal: Hailey Chambersophil (Seg)58 %Tjgfji25-78ZwnexOhiohealth Mansfield HospitalComment on above:Performed By: #### PT, BMP, TSH, CDP #### [facility] [address] [place] [address] Assistant Principal: Boston Chambers (Bld) [#/Vol]160 10*3/rWPesawh104-361 [facility] Mansfield HospitalComment on above:Performed By: #### PT, BMP, TSH, CDP #### [facility] [address] [place] [address] Assistant Principal: NICOLE Chambers (d) [#/Vol]4.12 10*6/uLNormal4.00-5.20Ohiohealth Mansfield HospitalComment on above:Performed By: #### PT, BMP, TSH, CDP #### [facility] [address] [place] [address] Assistant Principal: PANCHO Chambers (d) [#/Vol]5.1 10*3/uLNormal3.5-11.0Ohiohealth Mansfield HospitalComment on above:Performed By: #### PT, BMP, TSH, CDP #### [facility] [address] [place] [address] Assistant Principal: Pillo Alvarado MDHCJen Qualitative, Serumon 86-87-6913HTY ( test) QlNegativeNEGATIVEBon Secours Peoples HospitalComment on above:Specimens with hCG levels near the threshold of the test (25 mIU/mL) may give a negative or indeterminate result. In such cases, another test should be performed with a new specimen in 48-72 hours. If early is suspected clinically in this setting, correlation with quantitative serum b-hCG level is suggested. [facility] has confirmed the use of plasma for this test. This has not been cleared or approved by the U.S. Food and Drug Administration. The FDA has determined that such clearance is not necessary. Bon [facility] State Health SystemHCG Screen, Bloodon 91-45-1692QDD Screen, BloodNegative NormalNEGOhiohealth Mansfield HospitalComment on above:Result Comment: Specimens with hCG levels near the threshold of the test (25 mIU/mL) may give a negative or indeterminate result. In such cases, another test should be performed with a new specimen in 48-72 hours. If early is suspected clinically in this setting, correlation with quantitative serum b-hCG level is suggested. [facility] has confirmed the use of plasma for this test. This has not been cleared or approved by the U.S. Food and Drug Administration. The FDA has determined that such clearance is not necessary.Performed By: #### HCG #### [facility] [address] [place] [address] Assistant Principal: LANETTE Chambers HEMOGLOBIN A1Con 62-49-2020Supgqdx [Mass/Vol] 100 mg/dLCox SouthHbA1c (Bld) [Mass fraction]5.1 %4.5 - 6.2 %[facility] HealthcareComment on above:ADA RECOMMENDED LIMIT 4.0 - 6.0 ADA THERAPEUTIC TARGET < 7.0 ACTION SUGGESTED > 7.0 CLINISYNCCox SouthNo Panel Informationon 46-50-2251Ylv [facility] 87-02-1206BTK Coag (PPP) [Relative time]1.1 {INR}NormalOhiohealth Mansfield HospitalComment on above:Result Comment: Therapeutic Range: Moderate Anticoagulant Intensity: INR = 2.0-3.0 High Anticoagulant Intensity: INR = 2.5-3.5Performed By: #### PT, BMP, TSH, CDP #### [facility] [address] [place] [address] Assistant Principal: COLIN Chambers Coag (PPP) [Time]14.7 sHigh11.5-14.2MLakeHealth TriPoint Medical CenterComment on above:Performed By: #### PT, BMP, TSH, CDP #### [facility] [address] [place] [address] Assistant Principal: ADRIAN Chambersrotime-INRon 96-32-5627LOH Coag (PPP) [Relative time]1.1 {INR}[facility]ac[facility] HospitalComharbor beach community hospital on above: Therapeutic Range: Moderate Anticoagulant Intensity: INR = 2.0-3.0 High Anticoagulant Intensity: INR = 2.5-3.5 Interpretation and review of laboratory resultsAbInova Alexandria Hospital PT Coag (PPP) [Time]14.7 sHighBon [facility] TSHon 47-40-2703GEU Qn1.68 m[IU]/LBon [facility] State Health SystemThyroid Stim. Horm.on 78-82-6712Rligfor Stim. Horm.1.68 uIU/mLNormal0.27-4.20[facility] Comment on above:Performed By: #### PT, BMP, TSH, CDP #### [facility] [address] [place] [address] Assistant Principal: Pillo Alvarado MDType + Screenon 85-44-0521Ywkp + ScreenSample Expiration 12/16/2024,2359 Arm Band Number RZB ABO/Rh(D) A POSITIVE Antibody Screen NEGATIVE Unit Number [id number] Blood Component Type Leukocyte Reduced Red Cell Unit Division 00 Status of Unit TRANSFUSED Transfusion Status OK TO TRANSFUSE Crossmatch Result COMPATIBLENoKettering Health Behavioral Medical CenterComment on above: Performed By: #### TYS #### [facility] [address] [place] [address] Assistant Principal: ADRIAN ChambersATHOLOGY REQUEST FOR LAB CORPon 11-15-2024 PATHOLOGY REQUEST FOR LAB [facility] CampusComment on above:See report. Scanned copy available in EMR.ENDO CERVIXFIRELANDSNOMS HealthcareXR CHEST (2 VW) on 88-89-8484BQ CHEST (2 VW)EXAM: XR CHEST (2 VW) HISTORY: . cough, chills, scattered courses/wheeze, no hx asthma . COMPARISON: None. TECHNIQUE: Frontal and lateral chest FINDINGS: Heart and vascularity are unremarkable. Lungs are free of focal infiltrates. No bony abnormality is appreciated. IMPRESSION: No acute heart or lung disease identified. Interpreted by: Pillo Jean MD Signed by: Pillo Jean MD 11/13/24 Final resultNoKettering Health Behavioral Medical CenterXR Chest 2 Viewson 11-13-2024 No acute heart or lung disease identified. [facility] CONSOLIDATEDEXAM: XR CHEST (2 VW) HISTORY: . cough, chills, scattered courses/wheeze, no hx asthma . COMPARISON: None. TECHNIQUE: Frontal and lateral chest FINDINGS: Heart and vascularity are unremarkable. Lungs are free of focal infiltrates. No bony abnormality is appreciated. [facility] Pillo Arzate MD - 11/13/2024 EXAM: XR CHEST (2 VW) HISTORY: . cough, chills, scattered courses/wheeze, no hx asthma . COMPARISON: None. TECHNIQUE: Frontal and lateral chest FINDINGS: Heart and vascularity are unremarkable. Lungs are free of focal infiltrates. No bony abnormality is appreciated. IMPRESSION: No acute heart or lung disease identified. [facility]ac[facility] HospitalRadiology Study observation (narrative)[facility] HospitalXR Chest 2 ViewsOrdered By: Pillo Jean on 92-57-8577QymMartinsville Memorial Hospital Work Phone: colposcopyon 77-13-7593FgrctKimberly Resendiz LPN 11/08/2024 3:07 PM Colposcopy Date/Time: [...] to return in 6 months for Repeat Pap.[facility] HCG ( test) Ql (U)on 40-25-9950Dgsvcgskeshhas and review of laboratory resultsNormalCox SouthPreg Test, UrNegativeNegativeNOSaint Francis Hospital & [facility] Services HealthcareUrinalysis macro (dipstick) panel (U)on 72-43-7702Myixcvdbt, UA NegativeNegative - 4(70) +++ mg/dLNOMS HealthcareBlood, UANegativeNegative - 50 Terell/mcLNONM HealthcareClarity, UAClearNONM HealthcareColor, UAYellowNONM HealthcareGlucose, UANegativeNegative - 2000(110) ++++ mg/dLNONM Healthcare Interpretation and review of laboratory resultsNormalCox SouthKetones, UA NegativeNegative - 160(16) ++++ mg/dLNONM HealthcareLeukocytes, UATraceNegative - 500+++ Kaylyn/mcLNONM HealthcareNitrite, UANegativeNegative - PositiveNOMS HealthcarepH, UA75 - 9NOMS HealthcareProtein, UANegativeNegative - 2000(20) ++++ mg/dLNONM HealthcareSpec Grav, UA1.0251 - 1.03NONM HealthcareUrobilinogen, UA 0.20.2 - 12 mg/dLNOMetropolitan Saint Louis Psychiatric CenterNONM HealthcarePATHOLOGY REQUEST FOR LAB CORPon [id number] REQUEST FOR LAB CORPLOGAN REGIONAL [facility] HealthcareComment on above:See report. Scanned copy available in EMR.EMBXFIRELANDSaint Mary's Health CenterHCG ( test) Ql (U)on 56-20-9498Ivrdnnlxdfbzmv and review of laboratory resultsNormal Cox SouthPreg Test, UrNegativeNegativeCentral [facility] Hospital Urinalysis macro (dipstick) panel (U)on 26-00-0649Cfgjkvoql, UANegativeNegative - 4(70) +++ mg/dLNOMetropolitan Saint Louis Psychiatric CenterBlood, UAPositiveNegative - 50 Terell/mcLNONM HealthcareComment on above:largeClarity, UAClearNONM HealthcareColor, UAYellow Cox SouthGlucose, UANegativeNegative - 1999(110) ++++ mg/dLLOGAN [facility] Healthcare Interpretation and review of laboratory resultsNormalCox SouthKetones, UA NegativeNegative - 160(16) ++++ mg/dLCox SouthLeukocytes, UANegative Negative - 500+++ Kaylyn/mcLCox SouthNitrite, UANegativeNegative - Positive [facility] HealthcarepH, UA5.55 - 9NONM HealthcareProtein, UANegativeNegative - 2000(20) ++++ mg/dLCox SouthSpec Grav, UA1.031 - 1.03NOMetropolitan Saint Louis Psychiatric Center Urobilinogen, UA0.20.2 - 12 mg/dLPemiscot Memorial Health Systems HealthcareIGP,APTIMA HPV,AGE GDLNon 73-59-2454IZH GDLN ACOG TESTINGNote.Cox SouthComment on above:TESTS RESULT FLAG UNITS REF RANGE LAB Clinician Provided Cytology Information Source.............Cervix;Endocervix No. of containers..01 ThinPrep Vial Age Algo ACOG Olinda... -19 07 FLAG LEGEND: L-Low Normal,H-High Normal,LL-Alert Low,HH-Alert High <-Panic Low,>-Panic High,A-Abnormal,AA-Critical Abnormal Performed at: 01 =[address] [address] Leisa Rivera MD, HPV APTIMAPositiveAbnormalNegativeNOMS HealthcareComment on above:This nucleic acid amplification test detects fourteen high- risk HPV types (16,18,31,33,35,39,45,51,52,56,58,59,66,68) without differentiation. Performed at: =[address] [id number] Assistant Principal: Leisa Rivera MD, Phone: [phone] Performed at: [address] [id number] Assistant Principal: Leisa Rivera MD, Phone: [phone] IGP, RFX APTIMA HPV ASCUNoteAbnormal.NOMS HealthcareComment on above:TESTS RESULT FLAG UNITS REF RANGE LAB DIAGNOSIS: [...] obscuring inflammatory exudate are present. Performed by: Janelle Hooper, Crm Architect ([facility]) Electronically si... Fanny Phan MD, Pathologist . [...] <-Panic Low,>-Panic High,A-Abnormal,AA-Critical Abnormal Performed at: [address] [address] Leisa Rivera MD, Interpretation and review of laboratory resultsAbnoEncompass Health Rehabilitation Hospital of York BRUSH-SPATULA CERVIX ENDOCERVIX CLINISYMoccasin Bend Mental Health InstituteCytology Cervical or vaginal smear or scraping study Ordered By: Radha Hayes on 43-23-9535KNZWCameron Regional Medical Center ACOG PANEL 2: 21 to 29on 10-14-2022..NormalThe [facility] Va Medical CenterComment on above:Performed By: #### [id number] #### [facility] [address] [place] [address] Dr. Thu Pina Gdln ACOG Ildbyqs85-21UlxjmtInhClinton Memorial Hospitalment on above:Performed By: #### [id number] #### [facility] [address] [address] [address] Thu WhitmanDIAGNOSIS:CommentNoOhioHealth Mansfield Hospital on above: Result Comment: NEGATIVE FOR INTRAEPITHELIAL LESION OR MALIGNANCY.Performed By: #### [id number] #### [place] [address] Dr. Thu WhitmanMethodology:CommentOhio State Health System on above: Result Comment: This liquid based ThinPrep(R) pap test was screened with the use of an image guided system.Performed By: #### [id number] #### [place] [address] Dr. Thu WhitmanNote:CommentOhio State Health System on above:Result Comment: The Pap smear is a screening test designed to aid in the detection of premalignant and malignant conditions of the uterine cervix. It is not a diagnostic procedure and should not be used as the sole means of detecting cervical cancer. Both false-positive and false-negative reports do occur. .Performed By: #### [id number] #### [place] [address] Dr. Thu WhitmanPerformed by:CommentOhio State Health System on above: Result Comment: Denisse Dukes CytotechnologistPerformed By: #### [id number] #### [place] [address] Dr. Thu WhitmanReflex Criteria:CommentOhio State Health System on above:Result Comment: The HPV DNA reflex criteria were not met with this specimen result therefore, no HPV testing was performed. .Performed By: #### [id number] #### [place] [address] Dr[address] Thu WhitmanSpecimen adequacy:CommentOhio State Health System on above:Result Comment: Satisfactory for evaluation. Endocervical and/or squamous metaplastic cells (endocervical component) are present.Performed By: #### [id number] #### [place] [address] Dr. Thu WhitmanLuma AUTO DIFFon 13-97-8490OBBI #0.1 103/ulNormal0.0-0.1The [facility] on above:Performed By: #### CBC #### [address] [place], [place] [address] Dr. Thu WhitmanBasophils/100 WBC (Bld)1.0 %Normal0.2-2.0The [facility] Comment on above:Performed By: #### CBC #### [facility] [address] [place] [address] Dr. Thu Woodruff #0.1 103/ulNormal0.0-0.7The [facility] Va Medical CenterComment on above: Performed By: #### CBC #### [facility] [address] [place] [address] Dr. Thu Guillaumeosinophils/100 WBC (Bld)2.0 %Normal0.9-7.0The [facility] Comment on above:Performed By: #### CBC #### [facility] [address] [place] [address] Dr. Thu Guillaumerythrocyte distribution width (RBC) [Ratio]12.2 %Ipbaje52.0-15.0 The [facility] Medical CenterComment on above:Performed By: #### CBC #### [facility] [address] [place] [address] Dr. Thu WhitmanHematocrit (Bld) [Volume fraction]43.3 %Ixzdbl73.0-48.0The [facility] Medical CenterComment on above:Performed By: #### CBC #### [facility] [address] [place] [address] Dr. Thu WhitmanHemoglobin (Bld) [Mass/Vol]13.8 g/yJFfeurg27.0-16.0The [facility] CenterComment on above:Performed By: #### CBC #### [facility] [address] [place] [address] Dr. Thu Alarcon #0.01 10e3/ulNormal0.00-0.03The [facility] Medical CenterComment on above:Performed By: #### CBC #### [facility] [address] [place] [address] Dr. Thu Alarcon %0.2 %Normal0.0-0.5The [facility] Medical CenterComment on above: Performed By: #### CBC #### [facility] [address] [address] [address] Thu Salas #2.3 103/ulNormal1.2-3.8The [facility] Medical CenterComment on above:Performed By: #### CBC #### [facility] [address] [address] [address] Thu Gutiérrezmphocytes/100 WBC (Bld)47.2 %Lgfnaj88.5-60.0The [facility] Medical CenterComment on above:Performed By: #### CBC #### [facility] [address] [place] [address] Dr. Thu Kemp DIFF REQNONormalThe [facility] Medical CenterComment on above: Performed By: #### CBC #### [facility] [address] [place] [address] Dr. Thu Lopez (RBC) [Entitic mass]28.5 gkLtlqei95.7-34.0The [facility] Medical CenterComment on above:Performed By: #### CBC #### [facility] [address] [place] [address] Dr. Thu Lopez (RBC) [Mass/Vol]31.9 g/zMRezayq54.9-35.2The [facility] Medical CenterComment on above:Performed By: #### CBC #### [facility] [address] [place] [address] Dr. Thu Lopez (RBC) [Entitic vol]89.5 nKYnkmad07.0-99.0The [facility] Medical CenterComment on above:Performed By: #### CBC #### [facility] [address] [place] [address] Dr. Thu Castellon #0.4 103/ulNormal0.3-0.8The [facility] Medical CenterComment on above:Performed By: #### CBC #### [facility] [address] [place] [address] Dr. Thu Villaocytes/100 WBC (Bld)7.4 %Normal1.7-12.0The [facility] Comment on above:Performed By: #### CBC #### [facility] [address] [address] [address] Thu Ontiveros #2.1 103/ulNormal1.4-6.5The [facility] Medical CenterComment on above:Performed By: #### CBC #### [facility] [address] [place] [address] Dr. Thu Herrerautrophils/100 WBC (Bld)42.2 %Critically low43.0-75.0The [facility] Medical CenterComment on above:Performed By: #### CBC #### [facility] [address] [place] [address] Dr. Thu WhitmanPlatelet mean volume (Bld) [Entitic vol]10.0 fLNormal9.5-13.5The [facility] Medical CenterComment on above:Performed By: #### CBC #### [facility] [address] [place] [address] Dr. Thu WhitmanPLT218 103/obAxcfyg893-002Xff [facility] Medical CenterComment on above: Performed By: #### CBC #### [facility] [address] [place] [address] Dr. Thu WhitmanRBC4.84 106/ulNormal4.20-5.40The [facility] Barber[facility] Campusment on above:Performed By: #### CBC #### [facility] [address] [place] [address] Dr. Thu WhitmanWBC4.9 103/ulNormal4.0-11.0The [facility] Campusment on above: Performed By: #### CBC #### [facility] [address] [place] [address] Dr. Thu WhitmanFREE T4on 35-10-7744Hcwh T4 [Mass/Vol]0.85 ng/dLNormal0.76-1.46 The [facility] Campusment on above:Performed By: #### FT4 #### [facility] [address] [place] [address] Dr. Thu WhitmanGLYCOHEMOGLOBIN A1Con 15-26-4414BJW RECOMMENDATIONSEE BELOWNormOhioHealth Dublin Methodist HospitalComharbor beach community hospital on above:Result Comment: ADA RECOMMENDED LIMIT 4.0 - 6.0 ADA THERAPEUTIC TARGET < 7.0 ACTION SUGGESTED > 7.0Performed By: #### A1C #### [facility] [address] [place] [address] Dr. Thu WhitmanGlucose [Mass/Vol]94 mg/dLNoUC HealthComment on above:Performed By: #### A1C #### [facility] [address] [place] [address] Dr. Thu WhitmanHbA1c (Bld) [Mass fraction]4.9 %Normal4.5-6.2The [facility] Medical CenterComment on above:Performed By: #### A1C #### [facility] [address] [place] [address] Dr. Thu WhitmanPREJen QUANT HCGon 33-66-5899IKL QUANT<1NormalThe [facility] Comment on above:Performed By: #### TSH, PREGQNT #### [facility] [address] [place] [address] Dr. Thu WhitmanHCJen RANGESEE [facility] HospitalComharbor beach community hospital on above: Result Comment: 5-50 0.2-1 WEEK 50-500 1-2 WEEKS 100-5,000 2-3 WEEKS 500-10,000 3-4 WEEKS 1,000-50,000 4-5 WEEKS 10,000-100,000 5-6 WEEKS 15,000-200,000 6-8 WEEKS 10,000-100,000 2-3 MONTHSPerformed By: #### TSH, PREGQNT #### [facility] [address] [place] [address] Dr. Thu WhitmanPROTIMEon 80-72-0429YLK Coag (PPP) [Relative time]1.04 {INR} NormalOhioHealth Southeastern Medical Center on above:Performed By: #### PTT, PT #### [facility] [address] [place] [address] Dr. Thu Buchanan GUIDELINESSEE [facility] Children's HospitalComharbor beach community hospital on above:Result Comment: DESIRED INR: 2.0 - 3.0 CONDITIONS NOT LISTED BELOW 2.5 - 3.5 FOR PROSTHETIC HEART VALVE REPLACEMENT 2.5 - 3.5 RECURRENT THROMBOSIS Performed By: #### PTT, PT #### [facility] [address] [place] [address] Dr. Thu Alejo Coag (PPP) [Time]11.0 sNormal9.0-11.6The [facility] Comment on above:Performed By: #### PTT, PT #### [facility] [address] [place] [address] Dr. Thu Gamino 43-88-2626kQOQ Coag (Bld) [Time]28.9 kCnyywl76.3-36.2The [facility] Medical CenterComment on above:Performed By: #### PTT, PT #### [facility] [address] [place] [address] Dr. Thu Miner 10-61-6291OUF3.549 uIU/mLNormal0.358-3.740The [facility] Medical CenterComment on above:Performed By: #### TSH, PREGQNT #### [facility] [address] [place] [address] Dr. Thu WhitmanUS PELVIS AND TRANSVAGon 18-54-8043SN PELVIS AND TRANSVAG EXAMINATION: US PELVIS AND [...] Normal pelvic ultrasound. Electronically authenticated by: CALLIE EWISS Date: 2022-07-27 11:20[facility] CenterCOVID-19, Rapidon 79-88-5374JOTC-CoV-2 (COVID-19) RNA TASNEEM+probe Ql (Unsp spec)Not detectedNot [facility] on above: Rapid NAAT: The specimen is [...] management decisions. Fact sheet for Healthcare Providers: https://www.fda.gov/media/632658/download Fact sheet for Patients: https://www.fda.gov/media/692954/download Methodology: Isothermal Nucleic Acid Amplification Specimen Description.NASOPHARYNGEAL SWABHospital Sisters Health System St. Mary's Hospital Medical CenterProvider Letter on 78-14-4786Azaylzro Letter December 31, 2020 Dear Summer, We have been trying to reach you with no success. It is important that you return our call regarding your appointment upon receiving this letter. Also, at the time of your call, please provide us with your current information. Thank you for your prompt attention to this matter. Sincerely, [facility] [place] [address] WpirghUxmvxmOhioHealth Southeastern Medical Center 28-48-0438Nexcwqxnxch distribution width (RBC) [Ratio]12.5 %Jedfau20.5 - 14.5SSeattle VA Medical Center Comment on above:Performed By: #### CBC #### [facility] [address] [place] [address]Zbuzzshesq (Bld) [Volume fraction]39.1 %Lkmsnw22.0 - 46.0 Multicare HealthComment on above:Performed By: #### CBC #### [address] [address]Ichcoeiudi (Bld) [Mass/Vol]13.2 g/wUBprzkq86.0 - 16.0Multicare HealthComment on above:Performed By: #### CBC #### [address] [address]KZOD (RBC) [Mass/Vol]33.7 g/aBQkjlmo11.0 - 36.0Multicare HealthComment on above:Performed By: #### CBC #### [address] [address]RIE (RBC) [Entitic vol]93 yKYibfee49 - 100Multicare HealthComment on above:Performed By: #### CBC #### [address] [address]Hmuljaewg (Bld) [#/Vol]189 10*3/wHNnmphh475 - 450Multicare HealthComment on above:Performed By: #### CBC #### [address] [address]RVQ (Bld) [#/Vol]4.21 x10E12/LNormal4.00 - 5.20SSeattle VA Medical CenterComment on above:Performed By: #### CBC #### [address] [address]AMW (Bld) [#/Vol]4.9 10*3/uLNormal4.4 - 11.3SSeattle VA Medical CenterComment on above:Performed By: #### CBC #### [address] [address]WWQ,SERUM QUALITATIVEon 37-34-7647UKQ,SERUM QUALITATIVENegative NormalNegativeSSeattle VA Medical CenterComment on above:Performed By: #### HCGS #### [address] [address]Skweesbb Note - ED v2on 08-44-8358Fsmkgrzd Note - ED b7Qpioemqd Note - ED v2: Chart Review: ED NOTES ED NOTES: HPI: Patient started her period on Wednesday and has noticed increased bleeding ever since. She states she is feeling approximately 2 pads per hour. Patient does not take any current control pills and follows up with Dr. Dias COVER OPERATOR in [place]. She denies any nausea vomiting or fever. 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 Sensation and motor function of extremities grossly intact. Psych: Appropriate mood and affect. I have reviewed and confirmed nurses/medics notes for patient past, social and family history. Portions of this note were dictated by speech recognition. An attempt at proof reading was made to minimize errors. Minor errors in ethanol quality leader may be present. HISTORY OF PRESENTING ILLNESS [...] Current Medications SIGNIFICANT EVENTS: No documented data. COVER OPERATOR: Is : unable to answer Is [...] SIGNS: T PRBP SpO2O2(LPM) %FiO2 Method 05-Aug-2020 13:37:00-3859301/60 100 05-Aug-2020 12:36:00-666978911/74 100 05-Aug-2020 12:05:00-740412745/74 100 MEDICAL DECISION MAKING/ED COURSE MDM/ED COURSE: 1330-final results reviewed with patient. Lab work here was unremarkable including a negative test and stable hemoglobin and hematocrit. Patient has stable vital signs and I discussed with her the option of me calling her COVER OPERATOR or her taking care of it [...] I do recommend that you contact your COVER OPERATOR today or tomorrow and discuss your [...] patient: no Electronic Signatures: Jitendra Lux I (MANAGER OF CARE-SWIMMING POOL MAINTENANCE SUPERVISOR) (Signed 05-Aug-2020 13:41) Authored: ED Notes, HPI, PMH, Results/Vital Signs, MDM/ED Course, Clinical Impression, Attestation, Chart Review, Scores Last Updated: 05-Aug-2020 13:41 by Jitendra Lux I (MANAGER OF CARE-SWIMMING POOL MAINTENANCE SUPERVISOR)[facility] CenterRisk Screen - Adult Emergencyon 12-89-0487Qzbd Screen - Adult EmergencyPreferred Language: Preferred Language: Preferred Language for Discussing Health Care (patient/designee)Cymro Advanced Directives: Advance Directive/DNRno Family Violence Adult: Abuse Screen: Are you or have you been threatened or abused physically, emotionally, or sexually by anyoneno Learning Assessment (Patient): Learning Assessment (Patient): Patient is Able to be Assessed for Learningyes Factors Influencing Readiness to Learnn/a Factors that Impact Ability to Learnnone Devices/Methods Used to Communicatenone Learning Preferencesverbal instruction; written material Cultural Considerationsnone Developmental Considerationsnone Zoroastrianism Considerationsnone Learning Assessment (Other Learner): Learning Assessment (Other Learner): Other learner availableno Pressure Injury/TB/Substance: Pressure Injury: Do you have a coughno Substance Use Current or Former Historynever: Cigarette/Tobacco, e-Cigarette/Vaping, Alcohol, Street Drugs Admission Risk Screen: Significant IndicatorsComplete CAGE: CAGE: Is this an injured patient at a Trauma Center [place]/[place]): no Electronic Signatures: Kay Medley (RN) (Signed 05-Aug-2020 12:43) Authored: Preferred Language, Advanced Directives, Family Violence Adult, Learning Assessment (Patient), Learning Assessment (Other Learner), Pressure Injury/TB/Substance, Pressure Injury, CAGE Last Updated: 05-Aug-2020 12:43 by Kay Medley (RN)[facility] CenterTriage - EDon 86-49-7137Yowowx - EDQuick Triage: Are You no Have You Given [...] Accompanied By: self Language: Spoken Language Preferred: Cymro Reading Language Preferred: Cymro Present on Arrival: Device Present on Arrival to ED: no CHIEF COMPLAINT SUMMER NIA is a Female patient with a chief [...] obeys commands Best Verbal Response: (V5) oriented Cornish Score: 15 Allergies: no Last menstrual period: 03-Aug-2020 COVER OPERATOR History: control Patient has homicidal thoughts: [...] From Provider Note - ED v2 05-Aug-2020 12:25[facility] CenterAmbulatory Clinical Summaryon 24-25-1717Xcnpkvimln Clinical Summary{91-31-i8-9b-o8-a0-96-3q-dr-29-1w-4p-be-73-71-26}CD:[id number]-Rittman HospitalObstetrics Office/Clinic Noteon 44-27-4173Ypctvyekix Office/Clinic NoteChief Complaint 6 week PP and PO, delivered 05-29-2020, had tubel 06-26-2020, EPDS score 9 , bottlefeeding - formula [place] Depression Score EPDS Score: 9 History of [...] intact, sensation intact, motor intact, station & gaitnormal. Psych: oriented to all spheres, affect and [...] routine follow-up) Ordered: care only (separate procedure) [id number] Orders: acetaminophen-oxycodone, 1 tab(s), Oral, q6hr Pain 4-7, 15 tab(s), Refill(s) 0, [facility] [address], 162, cm, 06/18/20 7:34:00 EST, Height/Length Dosing, 70.6, kg, 06/18/20 7:34:00 EST, Weight Dosing docusate, 100 mg = 1 cap(s), Oral, BID, Take to avoid constipation, # 40 cap(s), Refills(s) 0, Pharmacy: [facility] [address], 162, cm, 06/18/20 7:34:00 EST, Height/Length Dosing, 70.6, kg, :34:00 EST, Weight Dosing ibuprofen, 600 mg = 1 tab(s), Oral, q6hr, PRN Pain 1-3, # 30 tab(s), Refills(s) 0, Pharmacy: [facility] [address], 162, cm, 06/18/20 7:34:00 EST, Height/Length Dosing, 70.6, kg, 06/18/20 7:34:00 EST, Weight Dosing Follow-up With When Contact Information [facility] In 1 year Additional Instructions: Problem List/Past [...] 07/09/2020 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 Never Smokeless Tobacco Use:., 07/09/2020 Family History Diabetes mellitus type 1: Grandparent. Hypertension: Grandparent.[facility]ittman HospitalPatient Educationon 71-05-1943Qnxfuns EducationHeart Disease Prevention Heart disease can lead to heart attacks [...] flow through. It is like turning on agarden hose and holding your thumb over the [...] blood to get to important body organs. Thiscan cause problems such as: ? Chest pain [...] heart disease and stroke prevention, visit the [place] [employer] Association website at www.americanheart.org Document Released: 01/19/2005 Document Revised: 12/06/2012 Document Reviewed: 08/03/2008 ExitCare? Patient Information ?2014 [employer].[facility]Rittman HospitalPre-Certification Formon 80-06-8777Rtv-Certification Form [id number]#1.00CD:127NoMarymount HospitalIntraOperative Documentson 91-24-6284OxlqvXjynfppom Documents [id number]#1.00CD:127[facility]ittman HospitalMain OR Intraoperative Recordon 21-76-4086Rjba OR Intraoperative Record IntraOp Document Type FT Summary Primary Physician: Ludivina GARDNER MD Finalized Date/Time: 07/01/20 09:20:13 Pt. Name: FEMI KRAMERO.B./Sex: 1995 Female Med Rec #: [id number] Physician: Ludivina GARDNER MD Financial #: [id number] Pt. Type: A Room/Bed: Admit/Disch: 06/26/20 11:11:26 [...] Phillip Role Performed Anesthesiologist Surgeon - Primary Button Breaker - Primary Physical Therapy Manager Time In 06/26/20 13:41:00 06/26/20 13:41:00 [...] CNOR, Wagner Role Performed Scrub - Primary METAL DRESSER Time In 06/26/20 13:41:00 06/26/20 13:41:00 Time Out 06/26/20 14:28:00 06/26/20 14:28:00 Procedure TUBAL LIGATION TUBAL LIGATION LAPAROSCOPIC(Bilateral) LAPAROSCOPIC(Bilateral) Comments Last Modified By: Barrett RN, Day Hyde RN, Day Phillip 06/26/20 [...] Time Out Pamela Orr, Given Participants TAWANDA SARMIENTO, Barrett Chapin RN, Ernesto Remy Rachel L, Alva RN, VAUGHN, Wagner Time Out Complete 06/26/20 14:01:00 Outcomes [...] and tissue Entry 1 Skin Integrity Intact, [place], Warm, and Skin Abnormality No Dry Outcomes [...] result of positioning En (more content not included)...[facility]-Rittman HospitalCoding Summary.on 35-72-4513Znrndc Summary.CODING DATE: 06/29/2020 FINAL [facility] STATUS: Home (Routine DC) PAYOR: Medicaid EAPG DESCRIPTION 0999 UNASSIGNED ADMIT DX: REASON FOR VISIT DX: Z30.2 Encounter for sterilization FINAL DX: PRINCIPAL: Z30.2 Encounter for sterilization SECONDARY: PYMT PROC EAPG STAT DESCRIPTION DOCTOR NAME DATE 54430 Laparoscopy, surgical; Ludivina GARDNER MD 06/26/2020 with removal of adnexal structures (partial or total oophorectomy and/or salpingectomy) 48522 Anesthesia for Milligan Jr. DO, Wilfred 06/26/2020 intraperitoneal procedures in lower abdomen including laparoscopy; not otherwise specified NOTE: The code number assigned matches the documented diagnosis and / or procedure in the patient's chart. However, the narrative phrase printed from the coding software may appear abbreviated, or result in slightly different terminology. Coded By: Kelly Leal Date Saved: 06/29/2020 09:41 pmNCleveland Clinic Fairview HospitalCoding Summary. CODING DATE: 06/29/2020 FINAL [facility] STATUS: Home (Routine DC) PAYOR: Medicaid EA DESCRIPTION 0999 UNASSIGNED ADMIT DX: REASON FOR VISIT DX: Z30.2 Encounter for sterilization FINAL DX: PRINCIPAL: Z30.2 Encounter for sterilization SECONDARY: PYMT PROC EAPG STAT DESCRIPTION DOCTOR NAME DATE 16241 Laparoscopy, surgical; Ludivina GARDNER MD 06/26/2020 with removal of adnexal structures (partial or total oophorectomy and/or salpingectomy) 35980 Anesthesia for Milligan Jr. DO, Wilfred 06/26/2020 intraperitoneal procedures in lower abdomen including laparoscopy; not otherwise specified NOTE: The code number assigned matches the documented diagnosis and / or procedure in the patient's chart. However, the narrative phrase printed from the coding software may appear abbreviated, or result in slightly different terminology. Revised Coded By: Kelly Leal Revised Date Saved: 06/29/2020 09:[address] Rita'S Medical CenterConsent on [id number]#1.00CD:127Rocíonima [facility] Rita'S Medical CenterPostoperative Documentson 48-35-6244Nbcpwynjjgwsf [id number]#1.00CD:[address] [place], [place] [address]Consenton 74-45-0318Hlwuiuq [id number]#1.00CD:[address] [place], [place] [address]sen for Anesthesiaon 50-28-5371Mtaxfiv for Anesthesia [id number]#1.00CD:[address] [place], [place] [address]sent for Procedure/Surgeryon 48-33-8133Hrajliu for Procedure/Surgery [id number]#1.00CD:[address] [place], [place] [address]Discharge Instructionson 93-59-4785Luzehtqdj Instructions [id number]#1.00CD:[address] [place], [place] [address]H&P Updateon 06-27-2020H&P Update [id number]#1.00CD:[address] [place], [place] [address]IntraOperative Documentson 95-23-2047NyvgjEfujwskqs Documents [id number]#1.00CD:[address] [place], [place] [address]IntraOperative Documents [id number]#1.00CD:[address] [place], [place] [address]Preoperative Documentson 30-47-9341Mrltcxsxbrof Documents [id number]#1.00CD:127W[facility]-Rittman HospitalConsent for Treatmenton 47-68-7615Demjfba for Treatment [id number]#1.00CD:127[facility]-Rittman HospitalInpatient Patient Summaryon 66-57-8769Rxwwrpqzm Patient Summary [address] [address] [facility] Clinical Discharge Instructions PERSON INFORMATION Name: FEMI KRAMER PHYSICIANS Admitting Physician: Ludivina GARDNER MD Attending Physician: Ludivina GARDNER MD PCP: GIULIANA MCKEE DO Discharge Diagnosis: Encounter for female sterilization procedure Comment: PATIENT EDUCATION INFORMATION Instructions: Post Op Patient Instructions - FT (Custom) Medication Leaflets: Follow up: With: Address: When: Ludivina GARDNER [address] [place] [address] In 2 weeks 07/10/2020 Comments: already scheduled Type Location Start [facility] 07/09/2020 10:30 AM 07/09/2020 11:00 AM Confirmed MEDICATION LIST New Medications [facility] [address] [place] [address], [phone] acetaminophen-oxycodone (Percocet 325 mg-5 mg Tab) 1 [...] Mouth every 4 hours as needed Pain/Fever. Comment:[facility]ittman HospitalMain OR PACU I Recordon 32-68-5135Tesr OR PACU I RecordPACU Phase I Document Type FT Summary Primary Physician: Ludivina GARDNER MD Finalized Date/Time: 06/26/20 16:16:53 Pt. Name: FEMI KRAMER /Sex: 1995 Female Med Rec #: [id number] Physician: Ludivina GARDNER MD Financial #: [id number] Pt. Type: A Room/Bed: Admit/Disch: 06/26/20 11:11:26 [...] individualized perioperative plan of care The patient's rightto privacy is maintained The patient's value system, [...] with or improved from baseline levels established preoperativelyThe patient's cardiovascular status is consistent with or improved from baseline levels established preoperatively The patient's cardiovascular status is consistent with or improved from baseline levels established preoperatively The patient demonstrates and/or reports adequate pain control throughout the perioperative period The patient received appropriate medication(s), safely administered during the perioperativeperiod Acuity Level PACU I FT Entry 1 Start Time 06/26/20 14:30:00 Stop Time 06/26/20 15:00:00 Acuity Level Acuity Level I Last Modified By: Giovanna Plunkett RN 06/26/20 16:16:52 Finalized By: Giovanna Plunkett RN Document Signatures Signed By: Giovanna Plunkett RN 06/26/20 16:16NoMarymount HospitalMain OR PACU II Recordon 64-08-9112Zvjv OR PACU II RecordPACU Phase II Document Type FT Summary Primary Physician: Ludivina GARDNER MD Finalized Date/Time: 06/26/20 18:39:38 Pt. Name: FEMI KRAMER./Sex: 1995 Female Med Rec #: [id number] Physician: Ludivina GARDNER MD Financial #: [id number] Pt. Type: A Room/Bed: 02/19 Admit/Disch: 06/26/20 [...] and monitors body temperature Evaluates postoperative respiratory statusEvaluates postoperative cardiac status Evaluates postoperative neurological status Assesses pain control, collaborated in initiating patient-controlled analgesia and implements alternative methods of pain control Verifiesallergies, administers prescribed medications and solutions, evaluates response to medications Entry 1 In PACU II 06/26/20 15:00:00 Discharge from PACU 06/26/20 17:05:00 II Outcomes Met? Yes Last Modified By: Evangelina Juarez RN 06/26/20 18:39:36 Post-Care Text: The patient demonstrates knowledge of the expected response to the operative or invasive procedure The patient's care is consistent with the individualized perioperative plan of care The patient's rightto privacy is maintained The patient's value system, [...] with or improved from baseline levels established preoperativelyThe patient's cardiovascular status is consistent with or improved from baseline levels established preoperatively The patient's neurological status is consistent with or improved from baseline levels established preoperatively The patient demonstrates and/or reports adequate pain control throughout the perioperative period The patient received appropriate medication(s), safely administered during the perioperativeperiod Finalized By: Evangelina Juarez RN Document Signatures Signed By: Evangelina Juarez RN 06/26/20 18:39NoMarymount HospitalMain OR Preoperative Recordon 98-14-7997Siqj OR Preoperative RecordPreOp Document Type FT Summary Primary Physician: Ludivina GARDNER MD Finalized Date/Time: 06/26/20 14:11:47 Pt. Name: FEMI KRAMER/Sex: 1995 Female Med Rec #: [id number] Physician: Ludivina GARDNER MD Financial #: [id number] Pt. Type: A Room/Bed: Admit/Disch: 06/26/20 11:11:26 [...] Signatures Signed By: Day Hyde RN 06/26/20 14:11NoMarymount HospitalMonitor Recordon 29-26-1360Mwamttz [id number]#1.00CD:127 [facility]ittman HospitalOperative Reporton 60-77-4159Qawyfdnkd Report Patient: FEMI KRAMER Age: 24 years Sex: Female : 1995 Associated Diagnoses: None Author: Ludivina GARDNER MD Postoperative Information Procedure: Laparoscopic bilateral salpingectomy Date/ Time: 06/26/2020 14:36:00 Preoperative Diagnosis: Encounter for female sterilization procedure (IJS93-FI Z30.2, Discharge, Medical). Postoperative Diagnosis: same. Performed by: Ludivina GARDNER MD. Findings: Normal appearing uterus, tubes, and ovaries bilaterally. Specimens Removed: bilateral fallopian tubes. Estimated Blood Loss: 5 ml. Complications: None. Anesthesia type: General. Description of procedure: After obtaining consent, patient taken to the OR. Once adequate anesthesia obtained, patient placedin the dorsal lithotomy position and was prepped [...] cauterized and transected almost up to the uterus.The fallopian tube was then cauterized and transected, [...] procedure well and was taken to the recoveryroom in stable condition. Sponge, lap, and instrument counts were correct x2. Stephen MoreauMarymount HospitalComment on above:Result Comment: Electronically Signed By: Ludivina GARDNER MD\.br\Date and Time Signed: 06/26/20 14:40 ESTOutpatient Surgery Discharge Instructionon 06-26-2020 Outpatient Surgery Discharge Instruction [place] [id number] Patient Discharge Instructions PERSON INFORMATION Name: FEMI [...] Signature Date Follow up: With: Address: When: Ludivinajacqueline FIELDSUSE [address] [place] [address] In 2 weeks 07/10/2020 Comments: already scheduled Type Location Start Finish [facility] 07/09/2020 10:30 AM 07/09/2020 11:00 AM Confirmed Pharmacy Information: Other: [facility] You may receive a survey from [employer] asking you to rate your care experience. [...] OCCURRED DURING YOUR HOSPITAL STAY New Medications [facility] [address] [place] [address], [phone] acetaminophen-oxycodone (Percocet 325 mg-5 mg Tab) 1 [...] as needed Pain/Fever. PATIENT EDUCATION INFORMATION Instructions: [facility] HospitalPatient Education - Texton 65-47-9298Bbkqtmt Education - Text [facility] HospitalProgress Note-Physicianon 55-07-2759Fwkuggvb Note-PhysicianPatient: FEMI KRAMER Age: 24 years Sex: Female : 1995 Associated Diagnoses: None Author: Wilfred Milligan Jr., DO Postoperative Information Post Operative Note: Post Anesthesia Care Unit. Anesthetic utilized: General. Health Status Allergies: Allergic Reactions (Selected) No Known Allergies Problem list: All Problems Supervision of normal in third trimester / SNOMED CT 436598719 / Confirmed Encounter for sterilization / SNOMED CT 391564905 / Confirmed Resolved: Depression during , antepartum / SNOMED CT 3097390805 Resolved: Genital herpes simplex virus (HSV) infection in mother affecting / SNOMED CT 4218748259 Resolved: / SNOMED CT 560655780 Resolved: / SNOMED CT 088250662 need for PA Canceled: Supervision of normal in second trimester / SNOMED CT 777147495 Physical Examination Vital Signs 06/26/2020 15:05 EST [...] anesthetic complications noted. Plan Transfer/ Discharge: Condition stable.[facility]ittman HospitalComment on above:Result Comment: Electronically Signed By: Wilfred Milligan Jr., DO\.br\Date and Time Signed: 06/26/20 15:11 ESTProgress Note-PhysicianPatient: FEMI KRAMER Age: 24 years Sex: Female [...] Refills(s) 0 Histories Past Medical History: Resolved (252732347): Onset on 08/30/2019 at 24 years. Resolved on 05/29/2020 at 24 years. 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 Resolved on 04/12/2017 at 21 years. Genital herpes simplex virus (HSV) infection in mother affecting (9751425509): Resolved. Depression during , antepartum (6922578295): Resolved. Family History: Hypertension Grandparent Diabetes mellitus type 1 Grandparent Procedure history: Tonsillectomy (909429388). 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 Plan [place] Society of Anesthesiologists (ASA) physical status classification: Class II. Anesthetic Preoperative Plan Anesthesia: General. . Anesthetic plan, risks, benefits, and alternatives discussed with the patient and/or family. Patient verbalized understanding. Adverse reactions, complications, and alternatives discujssed. Consentsigned and on chart..Normal [facility]'S Medical CenterComment on above:Result Comment: Electronically Signed By: Wilfred Milligan Jr., DO\Date and Time Signed: 06/26/20 12:48 EST Nursing Assessmenton 56-88-9172Eowirdn Assessment [id number]#1.00CD:127NoMarymount HospitalCoding Summary.on 83-61-3971Rgzdvq Summary.CODING DATE: 06/22/2020 FINAL [facility] DSCH STATUS: Home (Routine DC) PAYOR: Medicaid EA DESCRIPTION 0388 LEVEL III MICROBIOLOGY TESTS ADMIT [...] By: Jackie Mccartney Date Saved: 06/22/2020 02:[address] Rita'S Medical CenterFormson [id number]#1.00CD:127NoMarymount HospitalPriority Order-Wilmar 78-89-3718Cmladpaj Order-STATComment Invalid Interpretation [facility] HospitalComment on above:Result Comment: Received Performed at: [facility] [address] [place], [place] [id number] MD Mills AnaghPerformed By: #### SARS-CoV-2, TASNEEM, [id number] #### [facility] [address] [place], [place] [address]DBOU-OnI-3, NAAon 56-50-5189HURT-CoV-2 (COVID-19) RNA TASNEEM+probe Ql (Resp)Not detectedInvalid Interpretation CodeNot DetectedMercy Health St. Rita'S Medical CenterComment on above:Result Comment: This nucleic acid amplification test was developed and its performance characteristics determined by [facility]. Nucleic acid amplification tests include PCR and [...] detected) result in this assay. Performed at: [facility] [address] [facility] [place] [id number] MD Mills AnaghPerformed By: #### SARS-CoV-2, TASNEEM, [id number] #### [facility] [address] [place] [address]Tfshuf Summary.on 95-17-8386Brbrwn Summary.CODING DATE: 06/19/2020 FINAL [facility] STATUS: Home (Routine DC) PAYOR: Medicaid [...] Falguni Baez CphT Date Saved: 06/19/2020 04:[address] Rita[address]S Medical CenterB hCG Qualon 22-10-1075Igxg hCG QlNegativeNormalMercy Health St. Rita'S Medical CenterComment on above: Order Comment: unless history of hysterectomyPerformed By: #### [id number], [id number] #### [facility] [address] [place] [address]EQE w/Indiceson 96-45-9852Xnztppytikv distribution width (RBC) [Ratio]11.8 %Dtbqnu54.9-14.2FSouthern Ohio Medical CenterComment on above: Performed By: #### [id number], [id number] #### [facility] [address] [place] [address] 399[address]Oajrfyaqnt (Bld) [Volume fraction]45.2 %Xoaijd08.0-46.0[facility] Rita'S Medical CenterComment on above:Performed By: #### [id number], [id number] #### [facility] [address] [place] [address] 41141Cgtajxsydv (Bld) [Mass/Vol]15.0 g/dCAxktwc08.0-16.0[facility] Rita'S Medical CenterComment on above:Performed By: #### [id number], [id number] #### [facility] [address] [place] [address] 52767NSU (RBC) [Entitic mass]31.0 zpQvmkxf76.0-34.0[facility] Rita'S Medical CenterComment on above:Performed By: #### [id number], [id number] #### [facility] [address] [place] [address] 99[address]DHTE (RBC) [Mass/Vol]33.2 g/uAZmsgfs10.4-36.0[facility] Rita'S Medical CenterComment on above:Performed By: #### [id number], [id number] #### [facility] [address] [place] [address] 61486BET (RBC) [Entitic vol]93.3 cCQargwq77.0-100.0[facility] Rita'S Medical CenterComment on above:Performed By: #### [id number], [id number] #### [facility] [address] [place] [address] 14332Aoyfttum mean volume (Bld) [Entitic vol]8.7 fLNormal6.4-10.[address] Rita'S Medical CenterComment on above:Performed By: #### [id number], [id number] #### [facility] [address] [place] [address] 248[address]Avqnsciuf (Bld) [#/Vol]184.0 E9/ZFgbedy524.0-500.0[facility] Rita'S Medical CenterComment on above:Performed By: #### [id number], [id number] #### [facility] [address] [place] [address] 81604ETL (Bld) [#/Vol]4.8 E12/LNormal4.3-5.9[facility] Rita'S Medical CenterComment on above:Performed By: #### [id number], [id number] #### [facility] [address] [place] [address]36[address]SGF corrected for nucl RBC Auto (Bld) [#/Vol]5.0 E9/LNormal 4.0-11.0[facility] Rita'S Medical CenterComment on above:Performed By: #### [id number], [id number] #### [facility] [address] [place] [address]32[address]Pegccfj for Treatmenton 10-02-1721Qhjslzw for Treatment [id number]#1.00CD:[address] [place], [place] [address]H&P Updateon 06-18-2020H&P Update [id number]#1.00CD:[address] [place], [place] [address]Pre-Certification Formon 29-55-8913Osv-Certification Form [id number]#1.00CD:[address] [place], [place] [address]Consent for Procedure/Surgeryon 65-57-8162Qylncbk for Procedure/Surgery [id number]#1.00CD:127[facility]itt[facility] HospitalPhysician Orderon 53-80-8424Zcgwvixny Order [id number]#1.00CD:127[facility]itt[facility] HospitalPhysician Orderon 17-23-7458Wjqlerymv Order [id number]#1.00CD:127[facility]ittman HospitalCoding Summary.on 25-94-0081Nawyef Summary.CODING DATE: 06/02/2020 FINAL [facility] DSCH STATUS: Home (Routine [place]) PAYOR: Medicaid GROUPERS: 807 MS-DRG VAGINAL DELIVERY WITHOUT STERILIZATION OR D&C WITHOUT CC/PRISON Low Trim 0 High Trim 999 560 [...] Ludivina GARDNER MD 05/29/2020 Conception, External Approach [id number] Introduction of Hernando Matos JR, DO 05/29/2020 Anti-inflammatory into Spinal Canal, Percutaneous Approach [id number] Introduction of Anesthetic Hernando Matos JR, DO 05/29/2020 Agent into Spinal Canal, Percutaneous Approach [id number] Drainage of Amniotic Fluid, Ludivina GARDNER MD 05/29/2020 Therapeutic from Products of Conception, Via Natural or Artificial Opening NOTE: The code number assigned matches the documented diagnosis and / or procedure in the patient's chart. However, the narrative phrase printed from the coding software may appear abbreviated, or result in slightly different terminology. Coded By: Jakcie Mccartney Date Saved: 06/02/2020 05:00 [facility] InstituteDischarge Instructionson [id number] Instructions [id number]:127NoДимтрий [facility] HospitalInpatient Clinical Summaryon [id number] Clinical Summary [place] [id number] Clinical Summary Person Information Name: FEMI KRAMER [facility] Age: 24 Years : 1995 Sex: Female PCP: GIULIANA MCKEE DO Marital Status: Single Race: White Ethnicity: Non- or Language: Cymro Visit Id: Visit Reason: Speciality: Acuity: 2 PP Enc Type: Inpatient Med Service: Obstetrics Arrival: 05/29/2020 06:52:16 Discharge: 05/31/2020 13:15:00 Dispo Type: Home ([facility]) Address: [address] [place] [address] [id number] Provider Notes: Patient: FEMI KRAMER Age: 24 [...] Oral, q6hr PRN Pain 1-3, Routine, Start date05/29/20 15:37:00 EST acetaminophen-codeine 300 mg-30 mg Tab: 2 tab(s), Tab, Oral, q6hr PRN Pain 4-7, Routine, Start date05/29/20 15:37:00 EST benzocaine-menthol 20%-0.5% topical spray: 1 spray(s), [place], Topical, q4hr PRN Pain, Routine, Start date [...] Daily, 90 tab(s), Refill(s) 4, ANY VITAMIN, [facility], 163, cm, 11/07/19 8:38:00 EDT, Height/Length Measured, 71.9, kg, 11/07/19 8:38:00EDT, Weight Measured valacyclovir 500 mg Tab: 500 mg = 1 tab(s), Oral, q12hr, # 30 tab(s), Refills(s) 1, Pharmacy: [facility], 163, cm, 04/25/20 11:47:00 EST, Height/Length Dosing, 78.1, kg, 04/25/20 11:47:00 EST, Weight Dosing Physical Examination Vital Signs 05/30/2020 20:16 EST Temperature Oral 36.5 DegC Heart Rate Monitored 67 bpm Systolic Blood Pressure 116 mmHg Diastolic Blood Pressure 68 mmHg Mean (more content not included)...[facility] HospitalInpatient Patient Summaryon [id number] Patient Summary [place] [id number] Patient Discharge Instructions PERSON INFORMATION Name: FEMI [...] a nearby participating provider. Type Location Start [facility] 07/09/2020 10:30 AM 07/09/2020 11:00 AM Confirmed [...] Last Dose: Next Dose: Pharmacy Information: Other: [facility] PATIENT EDUCATION INFORMATION Instructions: Medication Leaflets: Thank you for choosing [facility] HospitalProgress Note-Physicianon 26-21-7595Jyokeciv Note-Physician Patient: FEMI KRAMER Age: 24 years [...] Oral, q6hr PRN Pain 1-3, Routine, Start date05/29/20 15:37:00 EST acetaminophen-codeine 300 mg-30 mg Tab: 2 tab(s), Tab, Oral, q6hr PRN Pain 4-7, Routine, Start date05/29/20 15:37:00 EST benzocaine-menthol 20%-0.5% topical spray: 1 spray(s), [place], Topical, q4hr PRN Pain, Routine, Start date [...] Daily, 90 tab(s), Refill(s) 4, ANY VITAMIN, [facility], 163, cm, 11/07/19 8:38:00 EDT, Height/Length Measured, 71.9, kg, 11/07/19 8:38:00EDT, Weight Measured valacyclovir 500 mg Tab: 500 mg = 1 tab(s), Oral, q12hr, # 30 tab(s), Refills(s) 1, Pharmacy: [facility], 163, cm, 04/25/20 11:47:00 EST, Height/Length Dosing, 78.1, kg, 04/25/20 11:47:00 EST, Weight Dosing Problem list: All Problems Supervision of normal in third trimester / SNOMED CT 589167196 / Confirmed Depression during , antepartum / SNOMED CT 2857063609 / Confirmed Genital herpes simplex virus (HSV) infection in mother affecting / SNOMED CT 9059471316 /Confirmed Resolved: / SNOMED CT 919539501 Resolved: / SNOMED CT 362862511 Canceled: Supervision of normal in second trimester / SNOMED CT 044793537 Physical Examination VSS, Epidural catheter removed intact, [...] 0 . Respiratory: Adequate air exchange with anabaptism of preoperative function.. Cardiovascular: Cardiovascular function is stable and has returned to preoperative levels.. Neurologic: Pt. has returned to preoperative baseline.. Assessment Anesthetic outcome No anesthetic complications noted. Plan Transfer/ Discharge: Patient can be discharged from anesthesia care. Condition good.[facility] HospitalComment on above:Result Comment: Electronically Signed By: Hernando Matos JR, DO\.br\Date and Time Signed: 05/31/20 09:12 ESTProgress Note-PhysicianPatient: FEMI KRAMER Age: 24 years Sex: Female [...] mL/hr, Routine, Start date 05/29/20 7:14:00 EST, 8hour(s), Total volume (mL): 1,000, 78.6 kg, May [...] in Lactated Ringers Premix 500 mL: 500 mL,IV, 1 mL/hr, Routine, Start date 05/29/20 7:14:00 EST, 500 hour(s), Total volume (mL): 500, Titrateper protocol, 78.6 kg, 1.89, m2 ropivacaine 0.2% injectable solution 10 mL: 18 mg, 9 mL, Injection, Epidural, Once PRN Other (see comment), Routine, Start date 05/29/20 9:53:00 EST Prescriptions Prescribed PNV oral tablet: 1 tab(s), Oral, Daily, 90 tab(s), Refill(s) 4, ANY VITAMIN, [facility], 163, cm, 11/07/19 8:38:00 EDT, Height/Length Measured, 71.9, kg, 11/07/19 8:38:00EDT, Weight Measured valacyclovir 500 mg Tab: 500 mg = 1 tab(s), Oral, q12hr, # 30 tab(s), Refills(s) 1, Pharmacy: [facility], 163, cm, 04/25/20 11:47:00 EST, Height/Length Dosing, 78.1, kg, 04/25/20 11:47:00 EST, Weight Dosing Problem list: All Problems Supervision of normal in third trimester / SNOMED CT 219428457 / Confirmed Depression during , antepartum / SNOMED CT 4753080985 / Confirmed Genital herpes simplex virus (HSV) infection in mother affecting / SNOMED CT 9627923542 /Confirmed / SNOMED CT 709451475 / Confirmed Resolved: / SNOMED CT 806714880 Canceled: Supervision of normal in second trimester / SNOMED CT 791344295 Physical Examination VSS, Epidural catheter removed intact, Lumbar area site nontender, no erythema Intake and Output Pt. denies significant n/v, and is tolerating p.o. Vital Signs (last 24 hrs) Last Charted Temp Oral 36.6 DegC (MAY 29:30) SBP 133 mmHg (MAY 29:30) DBP 82 mmHg (MAY 29:) Weight 76.6 kg (MAY 29:40) Height 162.5 cm (MAY 29:40) BMI 29.01 (MAY 29:40) Pain assessment: Pain Assessment 05/29/2020 7:40 EST Numeric Pain Scale 0 = No pain Numeric Pain Score 0 . Respiratory: Adequate air exchange with anabaptism of preoperative function.. Cardiovascular: Cardiovascular function is stable and has returned to preoperative levels.. Neurologic: Pt. has returned to preoperative baseline.. Assessment Anesthetic outcome No anesthetic complications noted. Plan Transfer/ Discharge: Patient can be discharged from anesthesia care. Condition good.NormalFisher Stanton Medical CenterComment on above:Result Comment: Electronically Signed By: Hernando Matos JR, DO JCCLARISSE w/Briannaon 05-30-2020 Erythrocyte distribution width (RBC) [Ratio]12.3 %Ofhfot17.9-14.2FSouthern Ohio Medical CenterComment on above:Performed By: #### [id number] #### [facility] [address] [place] [address] 34346Rkboqqpesq (Bld) [Volume fraction]38.9 %Dgugri96.0-46.0[facility]'S Medical CenterComment on above:Performed By: #### [id number] #### [facility] [address] [place] [address] 38963Ynzkzypfih (Bld) [Mass/Vol]13.9 g/pLYcxiye33.0-16.0[facility]'S Medical CenterComment on above:Performed By: #### [id number] #### [facility] [address] [place] [address] 25172LHA (RBC) [Entitic mass]33.0 mlRxadja56.0-34.0[facility]'S Medical CenterComment on above:Performed By: #### [id number] #### [facility] [address] [place] [address] 81481DGCL (RBC) [Mass/Vol]35.7 g/uAJtylxt20.4-36.0[facility]'S Medical CenterComment on above:Performed By: #### [id number] #### [facility] [address] [place] [address] 30532VIK (RBC) [Entitic vol]92.3 vFLgxqut29.0-100.0[facility] Rita'S Medical CenterComment on above:Performed By: #### [id number] #### [facility] [address] [place] [address] 47054Uhiweqkt mean volume (Bld) [Entitic vol]9.9 fLNormal6.4-10.[address] Rita'S Medical CenterComment on above:Performed By: #### [id number] #### [facility] [address], [place] [address]Bhukjipwg (Bld) [#/Vol]155.0 E9/AXojtdl887.0-500.0[facility] Rita'S Medical CenterComment on above:Performed By: #### [id number] #### [facility] [address], [place] [address]JDN (Bld) [#/Vol]4.2 E12/LLow4.3-5.9[facility] Comment on above:Performed By: #### [id number] #### [facility] [address], [place] [address]KUW corrected for nucl RBC Auto (Bld) [#/Vol]11.2 E9/LHigh 4.0-11.0[facility]'S Medical CenterComment on above:Performed By: #### [id number] #### [facility] [address], [place] [address]Wyzovnrh Note-Physicianon 59-91-9578Tdayjdtj Note-Physician Patient: FEMI KRAMER Age: 24 years [...] Oral, q6hr PRN Pain 1-3, Routine, Start date05/29/20 15:37:00 EST acetaminophen-codeine 300 mg-30 mg Tab: 2 tab(s), Tab, Oral, q6hr PRN Pain 4-7, Routine, Start date05/29/20 15:37:00 EST benzocaine-menthol 20%-0.5% topical spray: 1 spray(s), [place], Topical, q4hr PRN Pain, Routine, Start date [...] volume (mL): 500, Titrate to control bleeding afterdelivery of placenta., 76.8 kg, 1.86, m2 simethicone [...] Daily, 90 tab(s), Refill(s) 4, ANY VITAMIN, [facility], 163, cm, 11/07/19 8:38:00 EDT, Height/Length Measured, 71.9, kg, 11/07/19 8:38:00EDT, Weight Measured valacyclovir 500 mg Tab: 500 mg = 1 tab(s), Oral, q12hr, # 30 tab(s), Refills(s) 1, Pharmacy: [facility], 163, cm, 04/25/20 11:47:00 EST, Height/Length [...] wks PP 3. Anticipate (more content not included)...[facility] Comment on above:Result Comment: Electronically Signed By: Ludivina GARDNER MD\.br\Date and Time Signed: 05/30/20 17:52 ESTProgress Note-PhysicianPatient: FEMI KRAMER Age: 24 years Sex: Female [...] Oral, q6hr PRN Pain 1-3, Routine, Start date05/29/20 15:37:00 EST acetaminophen-codeine 300 mg-30 mg Tab: 2 tab(s), Tab, Oral, q6hr PRN Pain 4-7, Routine, Start date05/29/20 15:37:00 EST benzocaine-menthol 20%-0.5% topical spray: 1 spray(s), [place], Topical, q4hr PRN Pain, Routine, Start date [...] Daily, 90 tab(s), Refill(s) 4, ANY VITAMIN, [facility], 163, cm, 11/07/19 8:38:00 EDT, Height/Length Measured, 71.9, kg, 11/07/19 8:38:00EDT, Weight Measured valacyclovir 500 mg Tab: 500 mg = 1 tab(s), Oral, q12hr, # 30 tab(s), Refills(s) 1, Pharmacy: [facility], 163, cm, 04/25/20 11:47:00 EST, Height/Length [...] PP 3. Anticipate d/c tomorrow. Ludivina Gardner MDWadsworth-Rittman HospitalComment on above:Result Comment: Electronically Signed By: TAWANDA SARMIENTO, Ludivina Kat.br\Date and Time Signed: 05/30/20 17:55 ESTABO/Rhon 67-56-7478BOY/RhPositiveInvalid Interpretation Code [facility]S Medical CenterComment on above:Performed By: #### [id number], [id number], [id number], [id number] ####[facility] [address] [place], [place] [address]MJQ/Rh History Checkon 52-29-1700OPK/Rh History CheckVerified Hx Blood TypeNoMarymount HospitalComment on above: Performed By: #### [id number], [id number], [id number], [id number] ####[place] [address] [place], [place] [address]VQMFcy 52-27-4942NQEB Gel InterpNegativeNoMarymount HospitalComment on above:Performed By: #### [id number], [id number], [id number], [id number] ####[place] [address] [place], [place] [address]Fzhyc Bank ID#on [id number]# [id number] Interpretation CodeMercy Health St. Rita'S Medical CenterComment on above: Performed By: #### [id number], [id number], [id number], [id number] ####[place] [address] [place], [place] [address]JNT w/Indiceson 00-82-7204Rnmmeajanhw distribution width (RBC) [Ratio]12.6 %Xnzpas82.9-14.[address] [facility]'S Medical CenterComment on above:Performed By: #### [id number] #### [facility] [address] [place], [place] [address]Qxunsibpds (Bld) [Volume fraction]41.6 %Jaucno14.0-46.0[facility]'S Medical CenterComment on above:Performed By: #### [id number] #### [facility] [address] [place] [address] 56[address]Uhzujbjdid (Bld) [Mass/Vol]14.4 g/uUZkelqm06.0-16.0[facility]'S Medical CenterComment on above:Performed By: #### [id number] #### [facility] [address] [place] [address] 48402BMB (RBC) [Entitic mass]32.3 jbYtkvjd76.0-34.0[facility]'S Medical CenterComment on above:Performed By: #### [id number] #### [facility] [address] [place] [address] 938[address]GFXN (RBC) [Mass/Vol]34.6 g/sWEylpqb60.4-36.0[facility]'S Medical CenterComment on above:Performed By: #### [id number] #### [facility] [address] [place] [address] 43307VIS (RBC) [Entitic vol]93.5 xHQvzykh79.0-100.0[facility]'S Medical CenterComment on above:Performed By: #### [id number] #### [facility] [address] [place] [address] 999[address]Avoymjwz mean volume (Bld) [Entitic vol]10.1 fLNormal6.4-10.[address] [facility]'S Medical CenterComment on above:Performed By: #### [id number] #### [facility] [address] [place] [address] 79[address]Hixrsovds (Bld) [#/Vol]191.0 E9/YSksufn757.0-500.0[facility]'S Medical CenterComment on above:Performed By: #### [id number] #### [facility] [address] [place] [address] 82551TLV (Bld) [#/Vol]4.4 E12/LNormal4.3-5.9[facility]S Medical CenterComment on above:Performed By: #### [id number] #### [facility] [address], [place] [address]WRH corrected for nucl RBC Auto (Bld) [#/Vol]9.8 E9/LNormal 4.0-11.0[facility]S Medical CenterComment on above:Performed By: #### [id number] #### [facility] [address], [place] [address]Eohwrrjvt 36-02-3270Rvnmdma [id number]#1.00CD:127NoMarymount HospitalConsent for Procedure/Surgeryon 59-35-4222Jqxcsmk for Procedure/Surgery [id number]#1.00CD:127[facility]man HospitalConsent for Procedure/Surgery [id number]#1.00CD:127[facility]man HospitalConsent for Treatmenton 58-64-9593Xzcdsgl for Treatment [id number]#1.00CD:127NoMarymount HospitalConsent for [id number]#1.00CD:127 [facility] HospitalDelivery Summaryon 95-31-3451Aqovmsnx Summary Patient: FEMI KRAMER Age: 24 years Sex: Female : 1995 Associated Diagnoses: None Author: TAWANDA SARMIENTO, Ludivina Phillip Basic Information Gestational Age: Gestational Age (EGA) [...] appearance of fluid clear, amniotomy. Delivery of infant: time of 05/29/2020 14:48:00, uneventful, umbilical cord clamped and cut, RACHELE presentation, with right shoulder anterior, left shoulder posterior. Tight nuchal cord x1 reducedafter delivery of body. Status of Viable Gender: [...] condition: Stable. Maternal condition: Stable. Ludivina Gardner MDWadsworth-Rittman HospitalComment on above:Result Comment: Electronically Signed By: Ludivina GARDNER MD\.br\Date and Time Signed: 05/29/20 17:01 ESTDischarge Instructionson 26-82-0713Aemvzfcnh Instructions [id number]#1.00CD:127[facility] Grow Referralon 34-79-7772Fwby Me Grow Referral [id number]#1.00CD:127[facility] HospitalProgress Note-Physicianon 38-64-7802Pxlwtqan Note-PhysicianPatient: EFMI KRAMER Age: 24 years Sex: Female : [...] mL/hr, Routine, Start date 05/29/20 7:14:00 EST, 8hour(s), Total volume (mL): 1,000, 78.6 kg, May [...] in Lactated Ringers Premix 500 mL: 500 mL,IV, 1 mL/hr, Routine, Start date 05/29/20 7:14:00 EST, 500 hour(s), Total volume (mL): 500, Titrateper protocol, 78.6 kg, 1.89, m2 ropivacaine 0.2% injectable solution 10 mL: 18 mg, 9 mL, Injection, Epidural, Once PRN Other (see comment), Routine, Start date 05/29/20 9:53:00 EST Prescriptions Prescribed PNV oral tablet: 1 tab(s), Oral, Daily, 90 tab(s), Refill(s) 4, ANY VITAMIN, [facility], 163, cm, 11/07/19 8:38:00 EDT, Height/Length Measured, 71.9, kg, 11/07/19 8:38:00EDT, Weight Measured valacyclovir 500 mg Tab: 500 mg = 1 tab(s), Oral, q12hr, # 30 tab(s), Refills(s) 1, Pharmacy: [facility], 163, cm, 04/25/20 11:47:00 EST, Height/Length Dosing, 78.1, kg, 04/25/20 11:47:00 EST, Weight Dosing Problem list: All Problems Supervision of normal in third trimester / SNOMED CT 538105592 / Confirmed Depression during , antepartum / SNOMED CT 3997127893 / Confirmed 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 Resolved on 04/12/2017 at 21 years. Family History: Hypertension Grandparent Diabetes mellitus type 1 Grandparent Procedure history: Tonsillectomy (876170560). 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 PATIENT DENIED ANY SIGNS OR SY MPTOMS OF INTRAVASCULAR OR INTRATHECAL INJECTION, THEN AN EPIDURAL CAR RENTAL AGENT WAS INITIATED AND MAINTAINEDAT 10 ML/HR. INFUSION TO BE DISCONTINUED AT THE EMERGENCY MANAGEMENT DIRECTOR'S REQUEST.. Procedure tolerated: well. Complications: NO APPARENT COMPLICATIONS AT THE END OF THE PROCEDURE. 12S/ 5S Impression and PlanNormalMercy Health St. Rita'S Medical CenterComment on above:Result Comment: Electronically Signed By: Hernando Matos JR, DO\.br\Date and Time Signed: 05/29/20 10:56 ESTUA With Cult Reflexon 28-46-0264Dppgdfir LM Ql (Urine sed)TRACENormalTraceMercy Health St. Rita'S Medical CenterComment on above:Order Comment: Urinary Catheter Insertion triggered Urinalysis With Culture Reflex order by opal.Performed By: #### [id number] ####[facility] [address] [place], [place] [address]Pegppigwk Ql (U)NegativeNormal NegativeMercy Health St. Rita'S Medical CenterComment on above:Order Comment: Urinary Catheter Insertion triggered Urinalysis With Culture Reflex order by opal. Performed By: #### [id number] ####[facility] [address] [place], [place] [address]Zacjtdj (U)CLEARNormalClearMercy Health St. Rita'S Medical CenterComment on above:Order Comment: Urinary Catheter Insertion triggered Urinalysis With Culture Reflex order by opal.Performed By: #### [id number] ####[address] [address]Xktvr (U)YELLOWNormalYellowMercy Health St. Rita'S Medical CenterComment on above:Order Comment: Urinary Catheter Insertion triggered Urinalysis With Culture Reflex order by discern.Performed By: #### [id number] ####[address] [address]Iszmbcnmmp cells.squamous LM.HPF (Urine sed) [#/Area]3-2Kfvdaa7-2HnjayaSouthern Ohio Medical CenterComment on above: Order Comment: Urinary Catheter Insertion triggered Urinalysis With Culture Reflex order by discern.Performed By: #### [id number] ####[address] [address]Yywuhtg Test strip (U) [Mass/Vol]NegativeNormalNegativeMercy Health St. Rita'S Medical CenterComment on above: Order Comment: Urinary Catheter Insertion triggered Urinalysis With Culture Reflex order by discern.Performed By: #### [id number] ####[address] [address]Ecaomxzyeq Ql (U)TRACEAbnormal NegativeMercy Health St. Rita'S Medical CenterComment on above:Order Comment: Urinary Catheter Insertion triggered Urinalysis With Culture Reflex order by discern. Performed By: #### [id number] ####[address] [address]Aqfswbj (U) [Mass/Vol]NegativeNormalNegativeMercy Health St. Rita'S Medical CenterComment on above:Order Comment: Urinary Catheter Insertion triggered Urinalysis With Culture Reflex order by discern.Performed By: #### [id number] ####[address] [address]Rquwjwy.plasma/Quitaque.RBC (Bld) [Mass ratio]0-0Gqggsj5-1QlktvgSouthern Ohio Medical CenterComment on above:Order Comment: Urinary Catheter Insertion triggered Urinalysis With Culture Reflex order by discern.Performed By: #### [id number] ####[address] [address]Lkpxtdv Ql (U)NegativeNormalNegativeMercy Health St. Rita'S Medical CenterComment on above:Order Comment: Urinary Catheter Insertion triggered Urinalysis With Culture Reflex order by discern.Performed By: #### [id number] ####[address] [address]rF (U)7.0 [pH]Invalid Interpretation Code5.0-9.0[facility]'S Medical CenterComment on above:Order Comment: Urinary Catheter Insertion triggered Urinalysis With Culture Reflex order by discern.Performed By: #### [id number] ####[address] [address]Bwlsovu (U) [Mass/Vol]NegativeNormal NegativeMercy Health St. Rita'S Medical CenterComharbor beach community hospital on above:Order Comment: Urinary Catheter Insertion triggered Urinalysis With Culture Reflex order by discern. Performed By: #### [id number] ####[address] [address]Tytgtwpy gravity (U) [Rel density]1.015Invalid Interpretation Code1.005-1.030[facility] Rita'S Medical CenterComment on above:Order Comment: Urinary Catheter Insertion triggered Urinalysis With Culture Reflex order by discern.Performed By: #### [id number] ####[address] [address]JM Spec DescFoleyNormFlower HospitalComment on above:Order Comment: Urinary Catheter Insertion triggered Urinalysis With Culture Reflex order by discern.Performed By: #### [id number] ####[address] [address]Nmxxdkujdxwz Qn (U)0.2 {Damien'U}/dLNormal0.0-1.0[facility]'S Medical CenterComment on above:Order Comment: Urinary Catheter Insertion triggered Urinalysis With Culture Reflex order by discern.Performed By: #### [id number] ####[address] [address]NRQ Auto Ql (U)NegativeNormalNegativeMercy Health St. Rita'S Medical CenterComment on above: Order Comment: Urinary Catheter Insertion triggered Urinalysis With Culture Reflex order by discern.Performed By: #### [id number] ####[facility] [address] [place], [place] [address]OQU LM.HPF (Urine sed) [#/Area]8-2Brvzqm7-9InsmjqSouthern Ohio Medical CenterComment on above:Order Comment: Urinary Catheter Insertion triggered Urinalysis With Culture Reflex order by discern.Performed By: #### [id number] ####[facility] [address] [place], [place] [address]Nbtadknhqaajxs 07-74-0261Vhhypehpcgbg [id number]#1.00CD:127[facility]ittman [id number]#1.00CD:127Normal [facility]'S Medical CenterCoding Summary.on 47-23-0713Jnpbkd Summary.CODING DATE: 05/25/2020 FINAL [facility] DSC STATUS: Home (Routine DC) PAYOR: [...] By: Shakila Peter Date Saved: 05/25/2020 05:[address] Rita'S Medical CenterConsent for Procedure/Surgeryon [id number] for Procedure/Surgery [id number]:127NoMarymount HospitalFormson 20-14-6824Ebexf [id number]:127NormalFisher Anthony Medical CenterAmbulatory Clinical Summaryon [id number] Clinical Summary {[id number]}CD:[id number] [facility] Pratt HospitalObstetrics Office/Clinic Noteon [id number] Office/Clinic NoteChief Complaint OB 37w 6d, baby moving, ROJAS and nausea increase hip and back pain Obstetric History History (0,0,0,1) # 1 Baby 1 Outcome Date: 04/12/2017 Outcome: Live Outcome or Result: Vaginal Gender: Female Gest Age: 37 weeks Wt: 3033 g Hospital: [facility] Labor: -- Child's Name: -- Baby's [...] @ 0700. BPP today due to decr FM. 1. Supervision of normal in third trimester (Z34.93: Encounter for supervision of normal , unspecified, third trimester) Ordered: Office Visit Level 4 Est 55818 TH US Biophysical Profile w/o N-Str 2. Genital herpes simplex virus (HSV) infection in mother affecting (O98.319: Other infections with a predominantly sexual mode of transmission complicating , unspecified trimester) Ordered: Office Visit Level 4 Est 35123 TH US Biophysical Profile w/o N-Str 3. Depression during , antepartum (O99.340: Other mental disorders complicating ,unspecified trimester) Ordered: Office Visit Level 4 Est 65178 TH US Biophysical Profile w/o N-Str 4. 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 Never Smokeless Tobacco Use:., 05/13/2020 Family History Diabetes mellitus type 1: Grandparent. Hypertension: Grandparent. Lab Results Ambulatory Point of Care Results Glucose Urine Dipstick: Negative (05/21/20 09:40:00) Protein Urine Dipstick: Negative (05/21/20 09:40:00)[facility]ittman HospitalComment on above:Result Comment: Electronically Signed By: TAWANDA SARMIENTO, Ludivina Kat.br\Date and Time Signed: 05/21/20 10:57 ESTPatient Educationon 18-65-1732Mjqqjoc EducationApgar Score The score is a number given to a baby at 1 and 5 minutes after . The 1 minute score tells how well the baby survived the process. The 5 minute score tells how the baby is adapting tobeing outside of the womb. It is a standard way to exam babies before they leave the delivery room.The test is scored on 10 points. The [...] Document Reviewed: 09/13/2008 ExitCare? Patient Information [facility] [facility]. Family Medicine Score The score is a number given to a baby at 1 and 5 minutes after . The 1 minute score tells how well the baby survived the process. The 5 minute score tells how the baby is adapting tobeing outside of the womb. It is a standard way to exam babies before they leave the delivery room.The test is scored on 10 points. The [...] Document Reviewed: 09/13/2008 ExitCare? Patient Information ?2013 [employer].[facility]ittman HospitalUS Biophysical Profile w/o N-Stron [id number] Biophysical Profile w/o N-StrExam Date/Time: 05/21/2020 11:11 EST Reason for Exam: [...] 8 FINAL REPORT Dictated: 05/21/2020 2:26 pm [place] Pato SARMIENTO Signed (Electronic Signature): 05/21/2020 2:26 pm Signed by: Pato Orta MD Transcribed by: LUIS Technologist: MIKEY Technical Comments LMP : 08/30/19 LETY 06/05/20 LETY Obtained LETY by LMP GA 37w6d History 2 Para 1 Technical Comments Transabdominal Ultrasound Performed Placenta Location posterior, fundal Placenta Grade 2 Positioning Vertex Amniotic Fluid Volume Normal Biophysical Profile Total Score out of 8 8[facility] Ambulatory Clinical Summaryon [id number] Clinical Summary {[id number]}CD:[id number]-Rittman HospitalObstetrics Office/Clinic Noteon 89-89-2751Qrkecpvnrl Office/Clinic NoteChief Complaint OB 36w 5d, baby moving, had cramping and sharp pain down through vagina, GBS done last visit Obstetric History History (0,0,0,1) # 1 Baby 1 Outcome Date: 04/12/2017 Outcome: Live Outcome or Result: Vaginal Gender: Female Gest Age: 37 weeks Wt: 3033 g Hospital: [facility] Labor: -- Child's Name: -- Baby's [...] trimester) Ordered: Office Visit Level 4 Est 64255 2. Genital herpes simplex virus (HSV) infection in mother affecting (O98.319: Other infections with a predominantly sexual mode of transmission complicating , unspecified trimester) Ordered: Office Visit Level 4 Est 20762 3. Depression during , antepartum (O99.340: Other mental disorders complicating ,unspecified trimester) Ordered: Office Visit Level 4 Est 49395 TH 4. 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 Never Smokeless Tobacco Use:., 05/13/2020 Family History Diabetes mellitus type 1: Grandparent. Hypertension: Grandparent. Lab Results Ambulatory Point of Care Results Glucose Urine Dipstick: Negative (05/13/20 13:18:00) Protein Urine Dipstick: Negative (05/13/20 13:18:00)[facility]ittman HospitalComment on above:Result Comment: Electronically Signed By: TAWANDA SARMIENTO, Ludivina Kat.portillo\Date and Time Signed: 05/13/20 13:59 ESTPatient Educationon 15-25-8827Isirxec EducationFamily Medicine Score The score is a number given to a baby at 1 and 5 minutes after . The 1 minute score tells how well the baby survived the process. The 5 minute score tells how the baby is adapting tobeing outside of the womb. It is a standard way to exam babies before they leave the delivery room.The test is scored on 10 points. The [...] Document Reviewed: 09/13/2008 ExitCare? Patient Information ?2013 [employer] Follow Upon [id number] Follow UpExam Date/Time: 05/08/2020 09:19 EST Reason for Exam: [...] Signed by: Ishaan Fonseca M.D. Transcribed by: [facility] Technologist: MIKEY Technical Comments LMP : 08/30/19 LETY 06/05/20 LETY Obtained LETY by LMP GA 36w0d History 2 Para 1 Transabdominal Ultrasound Performed Placenta Location posterior, fundal Placenta Grade 2 Amniotic Fluid Volume High NormalNormalMercy Health St. Rita'S Medical CenterGroup B Strep by PCRon 63-43-8977Mvjgl B Strep by PCRSpecimen Negative for Group B Streptococcus by DNA amplification.NormalNegCommunity Regional Medical Center Comment on above:Performed By: #### SARS-CoV-2, TASNEEM, [id number] #### [facility] [address], [place] [address]Saeuc B Strep colonization by PCRNegativeNormalNegCommunity Regional Medical CenterComment on above:Performed By: #### SARS-CoV-2, TASNEEM, [id number] #### [facility] [address], [place] [address]Eytrxwcdtg Clinical Summaryon [id number] Clinical Summary{[id number]}CD:[id number]-Rittman HospitalAmbulatory Clinical Summary {[id number]}CD:[id number]-Rittman HospitalObstetrics Office/Clinic Noteon 65-27-9734Zhonabuvmz Office/Clinic NoteChief Complaint OB visit 36 weeks, headaches, Frakes Carballo, GBS today. Obstetric History History (0,0,0,1) # 1 Baby 1 Outcome Date: 04/12/2017 Outcome: Live Outcome or Result: Vaginal Gender: Female Gest Age: 37 weeks Wt: 3033 g Hospital: [facility] Labor: -- Child's Name: -- Baby's [...] here for appt following growth US. Per ham stringer: FHR 125, SHANTELLE 19.9, EFW 66%, 6lbs 8oz, AC 90%. She has been having mago carballo contractions. Frequency varies. She has some at least once a day,feels like severe period cramp. She feels like [...] , antepartum (O99.340: Other mental disorders complicating ,unspecified trimester) Stable. Ordered: Office Visit Level 3 Est 16067 2. Supervision of normal in third trimester (Z34.93: Encounter for supervision of normal , unspecified, third trimester) Follow up in [address] Gardner. Ordered: Group B Streptococcus colonization by PCR Office Visit Level 3 Est 22818 3. 36 weeks gestation of (Z3A.36: 36 weeks gestation of ) Ordered: Office Visit Level 3 Est 74402 4. Genital herpes simplex virus (HSV) infection in mother affecting (O98.319: Other infections with a predominantly sexual mode of transmission complicating , unspecified trimester) Start on antivirals. 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 Never Smokeless Tobacco Use:., 05/08/2020 Family History Diabetes mellitus type 1: Grandparent. Hypertension: Grandparent. Lab Results Ambulatory Point of Care Results Glucose Urine Dipstick: Negative (05/08/20 08:57:00) Protein Urine Dipstick: Negative (05/08/20 08:57:00)[facility]ittman HospitalComment on above:Result Comment: Electronically Signed By: Silvia MURDOCK\.portillo\Date and Time Signed: 05/08/20 10:11 ESTPatient Educationon 71-36-0043Mgbykom EducationFamily Medicine How a Baby Grows During begins [...] called estimated date of confinement (EDC) or estimateddate of delivery (LETY). GROWTH OF THE BABY MONTH BY MONTH 1. First Month: The fertilized egg attaches to the inside of the uterus and certain cells will formthe placenta and others will develop into the fetus. The arms, legs, brain, spinal cord, lungs, andheart begin to develop. At the end of [...] legs at this point. The fetus weighs alittle more than an ounce (0.03 kg) and is 3? inches (8.89cm) long. 4. Fourth Month: The placenta is completely formed. The external sex organs, neck, outer ear, eyebrows, eyelids and fingernails are formed. The fetus can hear, swallow, flex its arms and legs and thekidney begins to produce urine. The skin is [...] for the brain to grow. The fetus weighs5 pounds (2.27kg) and is 18 inches (45.75cm) [...] The fetus weighs 6 to 9 pounds (2.72to 4.08kg) and is 20 inches (50.8cm) long. [...] Document Reviewed: 11/23/2008 ExitCare? Patient Information ?2013 [employer].[facility] HospitalAmbulatory Clinical Summaryon [id number] Clinical Summary {[id number]}CD:[id number] Health St. Rita'S Medical CenterObstetrics Office/Clinic Noteon 72-14-5921Cdiyncstvh Office/Clinic NoteChief Complaint OB visit 34 weeks 1 day, Obstetric History History (0,0,0,1) # 1 Baby 1 Outcome Date: 04/12/2017 Outcome: Live Outcome or Result: Vaginal Gender: Female Gest Age: 37 weeks Wt: 3033 g Hospital: [facility] Labor: -- Child's Name: -- Baby's [...] , antepartum (O99.340: Other mental disorders complicating ,unspecified trimester) Stable. Ordered: Office Visit Level 3 Est 42300 TH 2. Supervision of normal in third trimester (Z34.93: Encounter for supervision of normal , unspecified, third trimester) Follow up in 2 weeks for appt and growth US. Ordered: Office Visit Level 3 Est 52067 Follow Up 3. 34 weeks gestation of (Z3A.34: 34 weeks gestation of ) Ordered: Office Visit Level 3 Est 03961 TH 4. Genital herpes simplex virus (HSV) infection in mother affecting (O98.319: Other infections with a predominantly sexual mode of transmission complicating , unspecified trimester) Plan to start antivirals @ 36 wks. 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 Never Smokeless Tobacco Use:., 04/25/2020 Family History Diabetes mellitus type 1: Grandparent. Hypertension: Grandparent. Lab Results Ambulatory Point of Care Results Glucose Urine Dipstick: Negative (04/25/20 12:04:51) Protein Urine Dipstick: Negative (04/25/20 12:04:51)[facility]ittman HospitalComment on above:Result Comment: Electronically Signed By: Silvia MURDOCK\.portillo\Date and Time Signed: 04/25/20 12:07 ESTPatient Educationon 31-48-1215Ypeqzrd EducationFamily Medicine How a Baby Grows During begins [...] called estimated date of confinement (EDC) or estimateddate of delivery (LETY). GROWTH OF THE BABY MONTH BY MONTH 1. First Month: The fertilized egg attaches to the inside of the uterus and certain cells will formthe placenta and others will develop into the fetus. The arms, legs, brain, spinal cord, lungs, andheart begin to develop. At the end of [...] legs at this point. The fetus weighs alittle more than an ounce (0.03 kg) and is 3? inches (8.89cm) long. 4. Fourth Month: The placenta is completely formed. The external sex organs, neck, outer ear, eyebrows, eyelids and fingernails are formed. The fetus can hear, swallow, flex its arms and legs and thekidney begins to produce urine. The skin is [...] for the brain to grow. The fetus weighs5 pounds (2.27kg) and is 18 inches (45.75cm) [...] The fetus weighs 6 to 9 pounds (2.72to 4.08kg) and is 20 inches (50.8cm) long. [...] Document Reviewed: 11/23/2008 ExitCare? Patient Information ?2013 [employer].[facility]ittman HospitalUS Follow Upon [id number] Follow UpExam Date/Time: 04/11/2020 10:21 EDT Reason for Exam: [...] 1 Positioning Vertex Amniotic Fluid Volume High NormalNormalMercy Health St. Rita'S Medical CenterAmbulatory Clinical Summaryon [id number] Clinical Summary {[id number]}CD:[id number] Health St. Rita'S Medical CenterObstetrics Office/Clinic Noteon [id number] Office/Clinic NoteChief Complaint OB 32w 1d, baby moving, swelling fingers Obstetric History History (0,0,0,1) # 1 Baby 1 Outcome Date: 04/12/2017 Outcome: Live Outcome or Result: Vaginal Gender: Female Gest Age: 37 weeks Wt: 3033 g Hospital: [facility] Labor: -- Child's Name: -- Baby's [...] trimester) Ordered: Office Visit Level 3 Est 85081 TH 2. Genital herpes simplex virus (HSV) infection in mother affecting (O98.319: Other infections with a predominantly sexual mode of transmission complicating , unspecified trimester) Ordered: Office Visit Level 3 Est 48027 TH 3. Depression during , antepartum (O99.340: Other mental disorders complicating ,unspecified trimester) Ordered: Office Visit Level 3 Est 96537 TH 4. 32 weeks gestation of (Z3A.32: 32 weeks gestation of ) Ordered: Office Visit Level 3 Est 47792 TH Follow-up With When Contact Information TAWANDA SARMIENTO, Ludivina Phillip In [address] [place] [address]- Additional Instructions: Problem List/Past Medical History Ongoing Depression during , antepartum Genital herpes simplex virus (HSV) infection in mother affecting Supervision of normal in third trimester Historical Procedure/Surgical History Tonsillectomy. 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 Never Smokeless Tobacco Use:., 04/11/2020 Family History Diabetes mellitus type 1: Grandparent. Hypertension: Grandparent. Lab Results Ambulatory Point of Care Results Glucose Urine Dipstick: Negative (04/11/20 10:13:00) Protein Urine Dipstick: Negative (04/11/20 10:13:00)[facility]ittman HospitalComment on above:Result Comment: Electronically Signed By: Ludivina GARDNER MD.portillo\Date and Time Signed: 04/11/20 10:48 EDTPatient Educationon 74-67-1279Zqbyolb EducationFamily Medicine How a Baby Grows During begins [...] called estimated date of confinement (EDC) or estimateddate of delivery (LETY). GROWTH OF THE BABY MONTH BY MONTH 1. First Month: The fertilized egg attaches to the inside of the uterus and certain cells will formthe placenta and others will develop into the fetus. The arms, legs, brain, spinal cord, lungs, andheart begin to develop. At the end of [...] legs at this point. The fetus weighs alittle more than an ounce (0.03 kg) and is 3? inches (8.89cm) long. 4. Fourth Month: The placenta is completely formed. The external sex organs, neck, outer ear, eyebrows, eyelids and fingernails are formed. The fetus can hear, swallow, flex its arms and legs and thekidney begins to produce urine. The skin is [...] for the brain to grow. The fetus weighs5 pounds (2.27kg) and is 18 inches (45.75cm) [...] The fetus weighs 6 to 9 pounds (2.72to 4.08kg) and is 20 inches (50.8cm) long. [...] Document Reviewed: 11/23/2008 ExitCare? Patient Information ?2013 [employer].[facility]ittman HospitalAmbulatory Clinical Summaryon [id number] Clinical Summary {[id number]}CD:[id number] HospitalObstetrics Office/Clinic Noteon [id number] Office/Clinic NoteChief Complaint OB 30w 1d, baby moving, nausea Obstetric History History (0,0,0,1) # 1 Baby 1 Outcome Date: 04/12/2017 Outcome: Live Outcome or Result: Vaginal Gender: Female Gest Age: 37 weeks Wt: 3033 g Hospital: [facility] Labor: -- Child's Name: -- Baby's [...] trimester) Ordered: Office Visit Level 3 Est 90165 2. Genital herpes simplex virus (HSV) infection in mother affecting (O98.319: Other infections with a predominantly sexual mode of transmission complicating , unspecified trimester) Needs suppression at 36 wks Ordered: Office Visit Level 3 Est 87948 3. Depression during , antepartum (O99.340: Other mental disorders complicating ,unspecified trimester) Stable Ordered: Office Visit Level 3 Est 97464 4. 30 weeks gestation of (Z3A.30: 30 weeks gestation of ) Ordered: Office Visit Level 3 Est 62737 Follow-up With When Contact Information Ludivina GARDNER MD In [address] [place] [address]- Additional Instructions: Problem List/Past Medical History Ongoing Depression during , antepartum Genital herpes simplex virus (HSV) infection in mother affecting Supervision of normal in third trimester Historical Procedure/Surgical History Tonsillectomy. 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 Never Smokeless Tobacco Use:., 03/28/2020 Family History Diabetes mellitus type 1: Grandparent. Hypertension: Grandparent. Lab Results Ambulatory Point of Care Results Glucose Urine Dipstick: Negative (03/28/20 09:43:00) Protein Urine Dipstick: Negative (03/28/20 09:43:00)[facility]ittman HospitalComment on above:Result Comment: Electronically Signed By: Ludivina GARDNER MD\.br\Date and Time Signed: 03/28/20 10:04 EDTPatient Educationon 47-00-3809Czgqgre EducationFamily Medicine How a Baby Grows During begins [...] called estimated date of confinement (EDC) or estimateddate of delivery (LETY). GROWTH OF THE BABY MONTH BY MONTH 1. First Month: The fertilized egg attaches to the inside of the uterus and certain cells will formthe placenta and others will develop into the fetus. The arms, legs, brain, spinal cord, lungs, andheart begin to develop. At the end of [...] legs at this point. The fetus weighs alittle more than an ounce (0.03 kg) and is 3? inches (8.89cm) long. 4. Fourth Month: The placenta is completely formed. The external sex organs, neck, outer ear, eyebrows, eyelids and fingernails are formed. The fetus can hear, swallow, flex its arms and legs and thekidney begins to produce urine. The skin is [...] for the brain to grow. The fetus weighs5 pounds (2.27kg) and is 18 inches (45.75cm) [...] The fetus weighs 6 to 9 pounds (2.72to 4.08kg) and is 20 inches (50.8cm) long. [...] Document Reviewed: 11/23/2008 ExitCare? Patient Information ?[facility] [employer]itt[facility] HospitalAmbulatory Clinical Summaryon 65-72-2942Zolrcjdudy Clinical Summary {[id number]}CD:[id number] Health St. Rita'S Medical CenterObstetrics Office/Clinic Noteon [id number] Office/Clinic NoteChief Complaint OB 26w 1d, baby moving, nausea Obstetric History History (0,0,0,1) # 1 Baby 1 Outcome Date: 04/12/2017 Outcome: Live Outcome or Result: Vaginal Gender: Female Gest Age: 37 weeks Wt: 3033 g Hospital: [facility] Labor: -- Child's Name: -- Baby's [...] second trimester (Z34.92: Encounter for supervision of normalpregnancy, unspecified, second trimester) Ordered: Office Visit Level 3 Est 49540 TH Follow Up 2. Genital herpes simplex virus (HSV) infection in mother affecting (O98.319: Other infections with a predominantly sexual mode of transmission complicating , unspecified trimester) Ordered: Office Visit Level 3 Est 30362 TH Follow Up 3. Depression during , antepartum (O99.340: Other mental disorders complicating ,unspecified trimester) Ordered: Office Visit Level 3 Est 45219 TH Follow Up 4. 26 weeks gestation of (Z3A.26: 26 weeks gestation of ) Ordered: Office Visit Level 3 Est 97512 TH Follow Up Follow-up With When Contact Information TAWANDA SARMIENTO, Ludivina Phillip In [address] [place] [address]- Additional Instructions: Problem List/Past Medical History Ongoing Depression during , antepartum Genital herpes simplex virus (HSV) infection in mother affecting Supervision of normal in second trimester Historical Procedure/Surgical History Tonsillectomy. 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 Never Smokeless Tobacco Use:., 02/29/2020 Family History Diabetes mellitus type 1: Grandparent. Hypertension: Grandparent. Lab Results Ambulatory Point of Care Results Glucose Urine Dipstick: Negative (02/29/20 09:41:00) Protein Urine Dipstick: Negative (02/29/20 09:41:00)[facility]ittman HospitalComment on above:Result Comment: Electronically Signed By: TAWANDA SARMIENTO, Ludivina Medina\Date and Time Signed: 02/29/20 10:02 EDTCoding Summary.on 80-07-3306Dnqjvb Summary.CODING DATE: 02/20/2020 FINAL [facility] DSC STATUS: Home (Routine DC) PAYOR: [...] Falguni Baez CphT Date Saved: 02/20/2020 03:[address] Rita'S Medical CenterABO/Rhon 14-10-5596AVH/RhPositiveInvalid Interpretation [facility] Comment on above:Performed By: #### [id number], [id number] ####[facility] [address] [place], [place] [address]ORSDqj 60-74-0030NHWY Gel InterpNegativeNormalMercy Health St. Rita'S Medical CenterComment on above:Performed By: #### [id number], [id number] ####[facility] [address] [place], [place] [address]PXS w/Indiceson 96-15-8402Mlxvfzujfgu distribution width (RBC) [Ratio]13.5 %Kroyyz90.9-14.2FSouthern Ohio Medical CenterComment on above: Performed By: #### [id number], [id number] #### [facility] Laboratory [address] [place], [place] [address]Qgvfsmwilv (Bld) [Volume fraction]37.6 %Slxbbv01.0-46.0[facility] Rita'S Medical CenterComment on above:Performed By: #### [id number], [id number] #### [facility] Laboratory [address] [place] [address]Zrliruyuib (Bld) [Mass/Vol]13.4 g/kLKaypoh42.0-16.0[facility] Rita'S Medical CenterComment on above:Performed By: #### [id number], [id number] #### [facility] Laboratory [address] [place] [address]MXZ (RBC) [Entitic mass]33.2 svVjbnfu89.0-34.0[facility] Rita'S Medical CenterComment on above:Performed By: #### [id number], [id number] #### [facility] Laboratory [address] [place] [address]GDBA (RBC) [Mass/Vol]35.7 g/wZTwmldq30.4-36.0[facility] Rita'S Medical CenterComment on above:Performed By: #### [id number], [id number] #### [facility] Laboratory [address] [place] [address]80[address]LAC (RBC) [Entitic vol]92.8 nYJhcszr73.0-100.0[facility] Rita'S Medical CenterComment on above:Performed By: #### [id number], [id number] #### [facility] Laboratory [address] [place] [address]Dzmahotk mean volume (Bld) [Entitic vol]8.5 fLNormal6.4-10.[address] Rita'S Medical CenterComment on above:Performed By: #### [id number], [id number] #### [facility] Laboratory [address] [place] [address]Iejzrhrjn (Bld) [#/Vol]157.0 E9/PGmspdd403.0-500.0[facility] Rita'S Medical CenterComment on above:Performed By: #### [id number], [id number] #### [facility] Laboratory [address], [place] [address]DGH (Bld) [#/Vol]4.0 E12/LLow4.3-5.9[facility] Comment on above:Performed By: #### [id number], [id number] #### [facility] Laboratory [address], [place] [address]VVM corrected for nucl RBC Auto (Bld) [#/Vol]6.9 E9/LNormal 4.0-11.0[facility] Rita'S Medical CenterComment on above:Performed By: #### [id number], [id number] #### [facility] Laboratory [address], [place] [address]Qewktre for Treatmenton 52-56-2227Agnmpsm for Treatment [id number]#1.00CD:127NoMarymount HospitalGest Scr Glu 1 Hron 58-98-7683Nsxbubb [Mass/Vol]116 mg/pMJqiwpg80-[address] Rita'S Medical CenterComment on above:Result Comment: Positive Screen =1 HR > 140mg/dLPerformed By: #### [id number], [id number] ####[facility] [address] [place], [place] [address]Wjjrsdzbpm Clinical Summaryon 26-74-0789Rcnvwztfmg Clinical Summary {68-21-38-26-y6-v5-46-76-89-6x-2e-64-15-7b-7b-ea}CD:011543YfmvehUlusvtMarymount HospitalObstetrics Office/Clinic Noteon 74-32-2878Ipudtnmbcy Office/Clinic NoteChief Complaint OB 22w 1d, baby moving Obstetric History History (0,0,0,1) # 1 Baby 1 Outcome Date: 04/12/2017 Outcome: Live Outcome or Result: Vaginal Gender: Female Gest Age: 37 weeks Wt: 3033 g Hospital: [facility] Labor: -- Child's Name: -- Baby's [...] second trimester (Z34.92: Encounter for supervision of normalpregnancy, unspecified, second trimester) Ordered: Office Visit Level 4 Est 16325 TH 2. Genital herpes simplex virus (HSV) infection in mother affecting (O98.319: Other infections with a predominantly sexual mode of transmission complicating , unspecified trimester) Ordered: Office Visit Level 4 Est 04806 TH 3. Depression during , antepartum (O99.340: Other mental disorders complicating ,unspecified trimester) Ordered: Office Visit Level 4 Est 23602 TH 4. 22 weeks gestation of (Z3A.22: 22 weeks gestation of ) Ordered: ABO/Rh Antibody Screen CBC w/ Indices Gestational Screen Glucose 1 Hour Office Visit Level 4 Est 34939 TH Follow-up With When Contact Information Ludivina GARDNER MD In [address] [place] [address]- Additional Instructions: Problem List/Past Medical History Ongoing Depression during , antepartum Genital herpes simplex virus (HSV) infection in mother affecting Supervision of normal in second trimester Historical Procedure/Surgical History Tonsillectomy. 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 Never Smokeless Tobacco Use:., 02/01/2020 Family History Diabetes mellitus type 1: Grandparent. Hypertension: Grandparent. Lab Results Ambulatory Point of Care Results Glucose Urine Dipstick: Negative (02/01/20 09:32:00) Protein Urine Dipstick: Negative (02/01/20 09:32:00)[facility]ittman HospitalComment on above:Result Comment: Electronically Signed By: Ludivina GARDNER MD\.br\Date and Time Signed: 02/01/20 09:52 EDTAmbulatory Clinical Summaryon 76-69-6535Kaawdesnnw Clinical Summary {94-0e-58-90-l9-um-9o-2r-5n-b7-k9-6y-3f-cc-f1-9f}CD:048323AuwlakYbrluqMarymount HospitalObstetrics Office/Clinic Noteon 46-58-2375Ahytoszigt Office/Clinic NoteChief Complaint OB 18w 5d, feeling flutters, vaginal [...] Age: 37 weeks Wt: 3033 g Hospital: [facility] Labor: -- Child's Name: -- Baby's [...] second trimester (Z34.92: Encounter for supervision of normalpregnancy, unspecified, second trimester) Ordered: Office Visit Level 3 Est 13731 TH 2. Genital herpes simplex virus (HSV) infection in mother affecting (O98.319: Other infections with a predominantly sexual mode of transmission complicating , unspecified trimester) Ordered: Office Visit Level 3 Est 90670 TH 3. Depression during , antepartum (O99.340: Other mental disorders complicating ,unspecified trimester) Ordered: Office Visit Level 3 Est 55139 TH 4. 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 [employer] 12/13/2016 Substance Abuse - Denies Substance Abuse, [...] Protein Urine Dipstick: Trace (01/08/20 10:26:00) Specific [place] Urine Dipstick: 1.020 (01/08/20 10:26:00) Urine Appea (more content not included)...[facility] Comment on above:Result Comment: Electronically Signed By: TAWANDA SARMIENTO, Ludivina Kat.portillo\Date and Time Signed: 01/08/20 10:36 EDTUS After 1st Trimesteron 94-10-6909ND After 1st TrimesterExam Date/Time: 01/03/2020 08:52 EDT Reason for Exam: [...] Spine Normal Extremities Normal Diaphragm Normal ACI NormalNoMarymount HospitalAmbulatory Clinical Summaryon 89-43-7540Zbgpzijyvk Clinical Summary {p1-3c-lu-62-m6-5y-91-30-1d-0x-y8-89-a7-ec-50-79}CD:966078MetrwfFfznlpMarymount HospitalObstetrics Office/Clinic Noteon 17-84-5531Umslmoznbl Office/Clinic NoteChief Complaint OB visit 18 weeks, headaches less than last appointment, Obstetric History History (0,0,0,1) # 1 Baby 1 Outcome Date: 04/12/2017 Outcome: Live Outcome or Result: Vaginal Gender: Female Gest Age: 37 weeks Wt: 3033 g Hospital: [facility] Labor: -- Child's Name: -- Baby's [...] here for visit following anatomy US. Per ham stringer: anatomy WNL, FHR 155, variable position, cx [...] , antepartum (O99.340: Other mental disorders complicating ,unspecified trimester) Stable. Ordered: Office Visit Level 3 Est 20657 TH 2. Supervision of normal in second trimester (Z34.92: Encounter for supervision of normalpregnancy, unspecified, second trimester) Recommend Magnesium 500mg daily for headaches. Let pt know her sequentil screen is complete and lowrisk. Discussed first OB lab results. Follow up in 4 weeks. Ordered: Office Visit Level 3 Est 33272 TH 3. 18 weeks gestation of (Z3A.18: 18 weeks gestation of ) Ordered: Office Visit Level 3 Est 07434 TH 4. 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 Never Smokeless Tobacco Use:., 01/03/2020 Family History Diabetes mellitus type 1: Grandparent. Hypertension: Grandparent. Lab Results Ambulatory Point of Care Results Glucose Urine Dipstick: Negative (01/03/20 08:52:00) Protein Urine Dipstick: Negative (01/03/20 08:52:00)[facility]ittman HospitalComment on above:Result Comment: Electronically Signed By: LAKEShadia LANGFORD.portillo\Date and Time Signed: 01/03/20 09:17 EDTSequential Screen, Second Trimesteron 74-74-9936Qrwccrejno Screen 2see [facility]Comhar[facility] on above:Order Comment: (Sendout facility name if possible): [facility] with accompanying paperwork.Result Comment: Screen negative - detailed report to follow Testing Performed: [facility] [address] [place], [place] [address]Oihlsrrrc By: #### SEQ2 #### [address] [address] Noyjrpiibe Screen, First Trimesteron 02-52-4541Kxummpklfc Screen 1 see [facility] HospitalComhar[facility] on above:Order Comment: (Sendout facility name if possible): [facility] with accompanying paperwork.Result Comment: Final Results pending second trimester sample - detailed report to follow Testing Performed: [facility] [address] [place], [place] [address]Kkrttjdvj By: #### SEQ1 #### [address] [address] Ayapfcnlmlopj Lab Procedureon 84-83-9159GXPP LAB TESTNoMcKitrick HospitalComharbor beach community hospital on above:Order Comment: Test(s) Ordered: Comment: Test Ordered: IGP, rfx Aptima HPV ASCUInterpretation:NEGATIVE FOR INTRAEPITHELIAL LESION AND MALIGNANCYPREDOMINANCE OF COCCOBACILLI CONSISTENT WITH SHIFT INVAGINAL LUCY IS PRESENTPathologist Provided ICD Codes:R87.5Specimen Adequacy:Satisfactory for evaluation. Endocervical and/or s quamousmetaplastic cells (endocervical component) are present.Comments:The pap smear is a screeningtest designated to aid in thedetection of pre-malignant and malignant conditions of theuterine cervix. It is not a diagnostic procedure and shouldnot be used as the sole means of detecting cervical cancer.Both false- positive and false-negative reports do occur.This liquid based ThinPrep(R) pap testwas screened with theuse of an image guided system.Performed by Deborah Arias It Generalist ([facility])The HPV DNA reflex criteria were not met with this specimenresult therefore, no HPV testing was p erformed. TESTING PERFORMED AT [facility]. ORIGINAL REPORT ON FILE IN LAB CONTAINS ADDITIONAL TEST SITE INFORMATION. Performed By: #### L801.1541 ####[facility] [address] [facility] [place], [address] Discharge Instructionon 78-11-2954Ehxmhtxla InstructionWPROTESTANT HOSPITALMedical Records [address] [place], [place] [address]Iihxngjjfciv forHome/Discharge Oiytnmaspjvo05/24/17 2115MR#: [id number] Acct: [id number]: FEMI KRAMER R Rep #: [id number]: 1995 21 From: [facility]imee Castelan [facility]ACP: Status: ADM INDischarge Diet: No RestrictionsDischarge Activity: Return to Normal Activity, May not drive while taking narcotic painmedications., May ShowerMay resume sexual activity in: 4-6 weeksAdditional Activity Instructions:: Nothingin the vagina for 4-6 weeks. You may [...] had elevated BloodPressure or 4th degree laceration youwill need to be seen in 2 weeks.04/13/172114 Date Aimee Castelan [facility] HospitalOperative Reporton 38-22-8670Ezttdxtcy ReportWPROTESTANT HOSPITALMedical Records [address] [place], [place] [address]Zckekisan Yrddpq86/24/17 0031MR#: [id number] Acct: [id number]: FEMI KRAMER R Rep #: [id number]: 1995 21 From: Aimee Castelan MDPCP: Status: ADM IN YLocation: WP [id number] DeliveryMaternal Presentation: Active Labor, Spontaneous Rupture of Hyxpctzfp38 yo @ 37w1d presents IAL SROM clear flu id, 3-4 cm dilated.Amniotic Membrane Rupture Type: Spontaneous at homeAmniotic Fluid Description: ClearFinal LETY: 05/02/17Gestational age: 37 Weeks and 2 DaysDate of Procedure: 04/12/17Pre-Operative Diagnosis: ial sromPost-Operative Diagnosis: sameSurgery/ Procedure Performed: Spontaneous Vaginal DeliveryType of Anesthesia: EpiduralDescription of Procedure:delivered uncomplicated loose nuchalx 1 easily reduced over the head and rest of infantdleivered. delayed cord clamping 30 sec. 1st degree perineal laceration repaired in the usualfashion. 200cc ebl. placenta delivered itnact immediately following. Presentation: LOAPlacental Delivery Description: SpontaneousPlacenta Disposition:Women's PavilionCord Entanglement: Around neck x 1, looseEstimated Blood Loss: 200Infant A gender: FemaleLaceration: Perineal Extension/lac, 1st degreeMedications given after delivery: IV PitocinComplications: None04/13/17 0033 Date Aimee Castelan MDCC: Aimee Castelan MD SignedNoMcKitrick Hospital([facility]) Rupture Of Membraneson 04-12-2017 ROMPositiveHighNegativePaulding County HospitalComment on above:Result Comment: Amniotic fluid present indicates rupture of Membranes.RESULTS [facility] TO [facility] 04/12/17 1618 Brittni Sandoval.REPORT READ BACK BY SAME . Performed By: #### L205.1000 ####[facility] [address] [place], [place], [phone]-Nvswmvva Blood Cnt No Diffon 04-12-2017 Erythrocyte distribution width Auto Ratio (RBC)12.3 %Vbmdgm68.6-14.6Paul[facility] County HospitalComment on above:Performed By: #### L100.0500 ####[facility] [address] [place], [address] Erythrocytes (RBC)4.56 M/gl7Buuypj8.2-5.4Paul[facility] County HospitalComment on above:Performed By: #### L100.0500 ####[facility] [address] [place], [address] Hematocrit (HCT)40.0 %Nugfop09-58 [facility] HospitalComment on above:Performed By: #### L100.0500 ####[facility] [address] [place], [address] Hemoglobin mass conc (Bld)13.8 g/kTRtjwxy09.0-15.0WSt. Mary's Medical Center, Ironton CampusComment on above:Performed By: #### L100.0500 ####[facility] [address] [place], [address] MCH 30.3 ovVtyzuz94.0-32.0WSt. Mary's Medical Center, Ironton CampusComment on above:Performed By: #### L100.0500 ####[facility] [address] [place], [address] MCHC mass conc (RBC)34.5 g/bsHvezzm10-14IpvqcsnSt. Mary's Medical Center, Ironton CampusComment on above:Performed By: #### L100.0500 ####[facility] [address] [place], [address] CCN44.7 fL Srobad29-60UhnmefoSt. Mary's Medical Center, Ironton CampusComment on above:Performed By: #### L100.0500 ####[facility] [address] [place], [address] Platelet mean volume (PMV)11.4 fLNormal6.2-12.0WSt. Mary's Medical Center, Ironton CampusComment on above:Performed By: #### L100.0500 ####[facility] [address] [place], [address] Olcrdhyiv391 10*3/hAQjmwsv648-913XlxvwcjSt. Mary's Medical Center, Ironton CampusComment on above: Performed By: #### L100.0500 ####[facility] [address] [place], [address] RDW SD38.7 mdLoczyk45.1-43.9WSt. Mary's Medical Center, Ironton CampusComment on above:Performed By: #### L100.0500 ####[facility] [address] [place], [address] WBC (Leukocytes)11.6 10*3/uLHigh4.4-11.0WSt. Mary's Medical Center, Ironton CampusComment on above: Performed By: #### L100.0500 ####[facility] [address] [place], [address] History and Physical Examon 04-12-2017 History and Physical ExamWPROTESTANT HOSPITALMedical Records [address] [facility] [place], [place] [address]Grqvvpw and Rollbdpl85/23/17 1732#: [id number] Acct: [id number]: FEMI KRAMER Rep #: [id number]: 1995 21 From: [facility]imee Castelan [facility]ACP: Status: ADM IN YLocation: WP OX237-0Clhqryj and PhysicalDate of Admission: 04/12/17History of Present [...] OBHeight: 64 inches/ minFlowsheet View for Follow-up VisitEstimatedweeks ofgestation: 37 1/7Review of SystemsGUComplains of abnormal vaginal discharge.Denies vaginal itching or burning, urinary incontinence, urinary urgency, urinaryfrequency and bloody urine.Except as noted in the HPI, the review of systems is negative for General and GI. Lab Monitoring, En try, and TrackingInitial Lab:TEST VALUE DATE REVIEWEDD (Rh) Type: posAntibody screen: negativeRubella: immuneVDRL: negativeHBsAg: negativeHIV: negativePhysical ExaminationVital Signs:Last Ht: 64 (03/15/2017)General Exam:Constitutional:alert, no acute distress, well hydrated, well developedand well nourished.Abdomen:gravid, nontender, no guarding, normal BS, no hepatosplenomegaly and no hernias.Pelvic Exam:Vulva:normal appearance, normal hair distribution and no lesions or masses.Urethra:no masses, non-tender and no discharge.Bladder:no masses, non-tender and non-distended.Vagina:normal, rugated, physiologic discharge, no lesions, no masses, no cystocele and adequatepelvic support.Cervix:normal, no motion tenderness and no lesions. /- clear fluidUterus:gravid, size c/w dates, softened, anteverted, anteflexed, mobile and non-tender.Adnexa:normal, no masses, mobile and nonten donna.Rectum:normal and no masses.fhts 130s moderate variability reactive no decels. toco q 2-3 minutesA/P:21 yo @ 37w1d IAL srom clear fluidadmit IAL routine care gbs negative epi PRN1 1736 Date Aimee Castelan [facility] – [place]ULSAosigner Signature (if applicable): Date CC: Aimee Castelan MD SignedNoMcKitrick HospitalType AND Screenon 92-16-6739Lhmpbije ScreenNegativeNoMcKitrick HospitalComment on above:Order Comment: Reason for Type AND Screen/Red Cells: ROUTINEPerformed By: #### B101.7450 ####[facility] [address] [place], [address] BLOOD TYPE GELPositiveNormalPaulding County Hospital Comment on above:Order Comment: Reason for Type AND Screen/Red Cells: ROUTINE Performed By: #### B101.7450 ####[facility] [address] [place], [address] Culture, Group B Streptococcuson 04-08-2017 CUGRBROB Culture Group B Beta Streptococcus is not isolated.[facility] Comment on above:Performed By: #### M100.1800 ####[facility] [address] [place], [address] Group B Strep DNA By PCRon 03-24-4000DSH TEST RESULTNegativeSpringfieldNegativePaulding County Hospital Comment on above:Order Comment: NO COLLECTION INFORMATION GIVENSource: Vaginal Performed By: #### L8200.0000 ####[facility] [address] [place], [place],[address] CBC with Diffon 74-55-2081Ykhuuqwok Auto #/vol (Bld)0.0 K/mcLNormal0-0.2[facility] Comment on above:Performed By: #### CBCDIF, GHASSAN CURRIE ####Unless otherwise noted, all testing performed by [address] [id number]: [id number] Director: Jr Alcantara M.D.Basophils/100 WBC Auto (Bld)0.2 %[facility] Medical CenterComment on above:Performed By: #### CBCDIF, CMET, GHASSAN ####Unless otherwise noted, all testing performed by [address] [phone]: [id number] Director: Jr Quinton, M.D.Eosinophils 0.0 K/mcLNormal0-0.5[facility] on above: Performed By: #### CBCDIF, CMET, [place] ####Unless otherwise noted, all testing performed by [address] [phone]: [id number] Director: Jr Alcantara M.D.Eosinophils/100 leukocytes0.0 %NormalHenry County Hospital on above:Performed By: #### CBCDIF, CMET, [place] ####Unless otherwise noted, all testing performed by [address] [phone] 15CLIA: [id number] Director: Jr Alcantara M.D.Erythrocyte distribution width Auto Ratio (RBC)13.4 %Odfebe61-23.4[facility] CenterComharbor beach community hospital on above:Performed By: #### CBCDIF, CMET, [place] ####Unless otherwise noted, all testing performed by [place] [phone] 15CLIA: [id number] Director: Jr Alcantara M.D.Erythrocytes (RBC)4.23 M/mcLNormal3.7-5.0[facility] on above: Performed By: #### CBCDIF, CMET, [place] ####Unless otherwise noted, all testing performed by [address] [phone]: [id number] Director: Jr Alcantara M.D.Hematocrit (HCT)37.7 %Xsytuk86.4-44.8[facility] on above:Performed By: #### CBCDIF, CMET, [place] ####Unless otherwise noted, all testing performed by [address] [phone] 15CLIA: [id number] Director: Jr Alcantara M.D.Hemoglobin mass conc (Bld) 13.4 g/iGJwbyux09.6-15.4[facility] Medical CenterComment on above:Performed By: #### CBCDIF, CMET, [place] ####Unless otherwise noted, all testing performed by [address] [phone]: [id number] Director: Jr Alcantara M.D.Lymphocytes0.8 K/mcLLow1.0-3.7OhFulton County Health CenterComment on above:Performed By: #### CBCDIF, CMET, [place] ####Unless otherwise noted, all testing performed by [address] [phone]: [id number] Director: Jr Alcantara M.D. Lymphocytes/100 rhntjepscn15.3 %NormalOhFulton County Health Center Comment on above:Performed By: #### CBCDIF, CMET, [place] ####Unless otherwise noted, all testing performed by [address] [phone]: [id number] Director: Jr Alcantara M.D.MCH31.6 cfFgpoyp56.9-33.9OhFulton County Health CenterComment on above:Performed By: #### CBCDIF, CMET, [place] ####Unless otherwise noted, all testing performed by [address] [phone] 15CLIA: [id number] Director: Jr Alcantara M.D.MCHC mass conc (RBC)35.5 g/uYSfwe06.1-35.1[facility] on above: Performed By: #### CBCDIF, CMET, GHASSAN ####Unless otherwise noted, all testing performed by [address] [phone]: [id number] Director: Jr Alcantara M.D.MCV89.1 [address]q41.6-[address] [place], [place] [address] on above:Performed By: #### CBCDIF, CMET, GHASSAN ####Unless otherwise noted, all testing performed by [place] [id number] 15CLIA: [id number] Director: Jr Alcantara M.D.Monocytes0.3 K/mcLNormal 0.1-0.6[facility] on above:Performed By: #### CBCDIF, CMET, GHASSAN ####Unless otherwise noted, all testing performed by [address] [phone]: [id number] Director: Jr Alcantara M.D.Monocytes/100 leukocytes5.4 %NormalTrumbull Regional Medical CenterComharbor beach community hospital on above:Performed By: #### CBCDIF, CMET, [place] ####Unless otherwise noted, all testing performed by [address] [phone] 15CLIA: [id number] Director: Jr Alcantara M.D.Neutrophils4.0 K/mcLNormal 1.2-6.9[facility] on above:Performed By: #### CBCDIF, CMET, [place] ####Unless otherwise noted, all testing performed by [address] [phone]: [id number] Director: Jr Alcantara M.D.Platelet mean volume (PMV)8.3 fLNormal7.0-10.6[facility] Regional Medical CenterComment on above:Performed By: #### CBCDIF, CMET, [place] ####Unless otherwise noted, all testing performed by [address] [phone] 15CLIA: [id number] Director: Jr Alcantara M.D.Llrfnognt993 K/mcLLow 162-402OhFulton County Health CenterComment on above:Performed By: #### CBCDIF, CMET, [place] ####Unless otherwise noted, all testing performed by [address] [phone]: [id number] Director: Jr Alcantara M.D.Segmented Neut %78.1 %NormalTrumbull Regional Medical Center Comment on above:Performed By: #### CBCDIF, CMET, [place] ####Unless otherwise noted, all testing performed by [address] [phone]: [id number] Director: Jr Alcantara M.D.WBC (Leukocytes)5.1 K/mcLNormal3.4-10.6[facility] Regional Medical CenterComment on above:Performed By: #### CBCDIF, CMET, [place] ####Unless otherwise noted, all testing performed by [address] [phone]: [id number] Director: Jr Alcantara M.D. Comprehensive Metabolic Panelon 24-85-3165Npsuoss aminotransferase (ALT)62 U/L Byjkqs98-76OwybPiccmgTrumbull Regional Medical CenterComment on above:Performed By: #### CBCDIF, KRISTINET, GHASSAN ####Unless otherwise noted, all testing performed by [address] [phone]: [id number] Director: Jr Alcantara M.D.Albumin3.5 g/dLNormal3.2-5.2[facility] on above:Performed By: #### CBCDIF, CMET, GHASSAN ####Unless otherwise noted, all testing performed by [address] [phone]: [id number] Director: Jr Alcantara M.D.Alkaline phosphatase (ALP)72 U/GNddhge55-867 [facility] CenterComharbor beach community hospital on above:Performed By: #### CBCDIKUSH Iraheta, GHASSAN ####Unless otherwise noted, all testing performed by [address] [phone]: [id number] Director: Jr Alcantara M.D.Aspartate aminotransferase (AST)51 U/LHigh0-45[facility] Medical CenterComment on above:Performed By: #### CBCDIF, CMET, GHASSAN ####Unless otherwise noted, all testing performed by [address] [phone] 15CLIA: [id number] Director: Jr Alcantara M.D.Bilirubin (total)0.6 mg/dL Normal0.3-1.2[facility] Regional Medical CenterComment on above:Performed By: #### CBCDIF, CMET, [place] ####Unless otherwise noted, all testing performed by [address] [phone]: [id number] Director: Jr Alcantara M.D.Calcium8.7 mg/dLNormal8.4-10.2[facility] Medical CenterComment on above:Performed By: #### CBCDIF, CMET, [place] ####Unless otherwise noted, all testing performed by [address] [phone] 15CLIA: [id number] Director: Jr Alcantara M.D.Ymdsykwd918 mmol/LNormal 98-108OhFulton County Health CenterComment on above:Performed By: #### CBCDIF, CMET, [place] ####Unless otherwise noted, all testing performed by [address] [phone]: [id number] Director: rJ Alcantara M.D.CO225 mmol/TPqfwpw89-84NdomXrwhyxFulton County Health Center Comment on above:Performed By: #### CBCDIF, CMET, [place] ####Unless otherwise noted, all testing performed by [address] [phone]: [id number] Director: Jr Alcantara M.D.Creatinine0.52 mg/dLNormal0.50-1.00[facility] Medical CenterComment on above:Performed By: #### CBCDIF, CMET, [place] ####Unless otherwise noted, all testing performed by [address] [phone]: [id number] Director: Jr Alcantara M.D.eGFR (black)mL/min/{1.73_m2}[facility] CenterComment on above:Result Comment: GFR CalcPerformed By: #### RACHELFKRISTINET, GHASSAN ####Unless otherwise noted, all testing performed by [address] [phone]: [id number] Director: Jr Alcantara M.D.eGFR (non-black)mL/min/{1.73_m2}[facility] Comment on above:Result Comment: Non- GFR CalceGFR is an estimated Glomerular Filtration Rate based on the valueof the patient's serum creatinine. In outpatients, eGFR should be usedas a helpful tool in screening for CKD. In inpatients or patients withacute renal failure, eGFR represents the GFR at the moment of the drawand should be used with caution.Performed By: #### KUSH PAYNE [place] ####Unless otherwise noted, all testing performed by [address] [phone]: [id number] Director: Jr Alcantara M.D.Glucose mass conc94 mg/vRXpngrb79-84BhgaJpmazoTrumbull Regional Medical CenterComment on above:Performed By: #### CBCDIF, KRISTINET, GHASSAN ####Unless otherwise noted, all testing performed by [address] [phone] 15CLIA: [id number] Director: Jr Alcantara M.D.Potassium molar conc3.2 mmol/LLow3.5-5.1[facility] Medical CenterComment on above: Performed By: #### CBCDIF, CMET, [place] ####Unless otherwise noted, all testing performed by [address] [phone]: [id number] Director: Jr Alcantara M.D.Protein7.1 g/dLNormal6.0-8.0[facility] Medical CenterComment on above:Performed By: #### CBCDIF, KRISTINET, GHASSAN ####Unless otherwise noted, all testing performed by [address] [phone] 15CLIA: [id number] Director: Jr Alcantara M.D.Wgjydq737 mmol/LNormal 135-145[facility] Medical CenterComment on above:Performed By: #### CBCDIF, CMET, GHASSAN ####Unless otherwise noted, all testing performed by [address] [phone]: [id number] Director: Jr Alcantara M.D.Urea nitrogen4 mg/dLLow8-25OhFulton County Health Center Comment on above:Performed By: #### CBCDIF, CMET, GHASSAN ####Unless otherwise noted, all testing performed by [address] [phone]: [id number] Director: Jr Alcantara M.D.Culture, [facility] 38-28-1284Dclhuhm, BloodTest Name: Culture, Blood Culture Status: Final Culture Report: No Growth - Day 5 Micro Source: ....[facility] Medical CenterComment on above:Performed By: #### BC ####Unless otherwise noted, all testing performed by [address] [phone]: [id number] Director: Jr Alcantara M.D.Culture, BloodTest Name: Culture, Blood Culture Status: Final Culture Report: No Growth - Day 5 Micro Source: ....[facility] Medical CenterComment on above:Performed By: #### BC ####Unless otherwise noted, all testing performed by [address] [phone]: [id number] Director: Jr Alcnatara M.D.Culture, Urineon 23-26-7040Erzxzsc, UrineTest Name: Culture, Urine Culture Status: Final Culture Report: No significant growth. Micro Source: ....[facility] Medical CenterComment on above:Performed By: #### URCUL ####Unless otherwise noted, all testing performed by [address] [phone]: [id number] Director: Jr Alcantara M.D.Lactic Acidon 43-77-0945Gcswoyu1.7 mmol/LNormal0.6-2.0 [facility] CenterComment on above:Performed By: #### CBCDIF, CMET, [place] ####Unless otherwise noted, all testing performed by [address] [phone]: [id number] Director: Jr Alcantara M.D.Urine with Indicated Cultureon 96-68-3494Eskjfppfa,UrineSmallAbnormal NEG;NEGATIVETrumbull Regional Medical CenterComment on above:Performed By: #### UIC ####Unless otherwise noted, all testing performed by [address] [phone]: [id number] Director: Jr Alcantara M.D. Blood,UrineNegativeNormalNEG;NEGATIVETrumbull Regional Medical Center Comment on above:Performed By: #### UIC ####Unless otherwise noted, all testing performed by [address] [phone]: [id number] Director: Jr Alcantara M.D.Ketone,Urine>= 160NormalOhiCOealth [facility] on above:Performed By: #### UIC ####Unless otherwise noted, all testing performed by [address] [phone]: [id number] Director: Jr Alcantara M.D.Leuk.Esterase,UrineTraceAbnormalNegativeTrumbull Regional Medical CenterComharbor beach community hospital on above:Performed By: #### UIC ####Unless otherwise noted, all testing performed by [address] [phone]: [id number] Director: Jr Alcantara M.D.Mucus, UrineModerateAbnormalNone SeenTrumbull Regional Medical CenterComharbor beach community hospital on above:Performed By: #### UIC ####Unless otherwise noted, all testing performed by [address] [phone]: [id number] Director: Jr Alcantara M.D.Nitrite,UrineNegativeNormalNEG;NEGATIVETrumbull Regional Medical CenterComharbor beach community hospital on above:Performed By: #### UIC ####Unless otherwise noted, all testing performed by [address] [phone]: [id number] Director: Jr Alcantara M.D.Protein,UrineTraceAbnormalNEGATIVE;NEG [facility] on above:Performed By: #### UIC ####Unless otherwise noted, all testing performed by [facility] [address], [place] [phone]: [id number] Director: Jr Alcantara M.D.Specific [place],Urine1.106Eeoprx2.003-1.029[facility] Comment on above:Performed By: #### UIC ####Unless otherwise noted, all testing performed by [address], [place] [phone]: [id number] Director: Jr Alcantara M.D.Squamous Zbpdejdxfd2-82Qqprvrlg0-2+;NSTrumbull Regional Medical CenterComment on above:Performed By: #### UIC ####Unless otherwise noted, all testing performed by [address], [place] [phone]: [id number] Director: Jr Alcantara M.D.Urine, bacteria in sedimentRareNormal NS;RARETrumbull Regional Medical CenterComment on above:Performed By: #### UIC ####Unless otherwise noted, all testing performed by [address] [phone]: [id number] Director: Jr Alcantara M.D.Urine, characterClearNoAvita Health System Galion HospitalComment on above: Performed By: #### UIC ####Unless otherwise noted, all testing performed by [address], [place] [phone]: [id number] Director: Jr Alcantara M.D.Urine, colorYellowSouthview Medical Center Comment on above:Performed By: #### UIC ####Unless otherwise noted, all testing performed by [address], [place] [phone]: [id number] Director: Jr Alcantara M.D.Urine, glucose presenceNegativeNormalNEG;NEGATIVEOhFulton County Health CenterComment on above:Performed By: #### UIC ####Unless otherwise noted, all testing performed by [address] [phone]: [id number] Director: Jr Alcantara M.D.Urine, leukocytes in -05Ivvnystt9-6+;3-5+;NSOhFulton County Health CenterComment on above:Performed By: #### UIC ####Unless otherwise noted, all testing performed by [address] [phone]: [id number] Director: Jr Alcantara M.D.Urine, pH7.0 [pH]Normal4.5-8.0[facility] Medical CenterComment on above:Performed By: #### UIC ####Unless otherwise noted, all testing performed by [address] [phone]: [id number] Director: Jr Alcantara M.D. Urobilinogen,Urine1.0 EU/dLHigh0.2[facility] Comment on above:Performed By: #### UIC ####Unless otherwise noted, all testing performed by [address] [phone]: [id number] Director: Jr Alcantara M.D. Vital Signs Date TimeVital SignValuePerforming KwrpxfesiBxmbriqx59-89-3732 20:18-5994AlX6% (BldA) [Mass fraction]99 %Mauricio Funes MD Work Phone: [phone] SecPeer.im Peoples HospitalUiryqo37-17-5011 20:13-0400Heart rate90 /minMauricio Funes MD Work Phone: [phone] [facility]06-25-2025 20:13-0400 Respiratory rate18 /minMauricio Funes MD Work Phone: [phone] [facility]06-25-2025 20:11-0400Body oygnpkyuegj94.29 [degF]Mauricio Funes MD Work Phone: [phone] [facility]06-25-2025 20:11-0400Diastolic blood xutypwlm03 mm[Hg]Mauricio Funes MD Work Phone: [phone] [facility] CenterPeer.im Peoples HospitalOzjpsj19-06-4761 20:11-0400Systolic blood qeeqlvqi728 mm[Hg]Mauricio Funes MD Work Phone: [phone] [facility]06-25-2025 17:37-0400Body kqidjv556.6 cmMauricio Funes MD Work Phone: [phone] [facility]06-25-2025 17:37-0400Body mass index (BMI) [Ratio]21.63 kg/x2UnsziuMauricio Funes MD Work Phone: [phone] [facility] CenterPeer.im Peoples HospitalYrwzpr52-08-1728 17:37-0400Body kqucin59.15 kgMauricio Funes MD Work Phone: [phone] [facility] CenterPeer.im Peoples HospitalFjqrxo16-06-6005 14:39-0400Body mass index (BMI) [Ratio]21.63 kg/f6Kfous Maryana DO Work Phone: [facility] SouthPhkkdodvzl72-40-4255 14:39-0400Body wnmwje54.15 kgCorey Maryana DO Work Phone: [facility]OM[facility] CenterKdoxsibbhu79-71-0301 14:39-0400Diastolic blood zgdhdunn69 mm[Hg]Ellis Maryana DO Work Phone: [facility] SouthIrwtnpgqmr78-16-2189 14:39-0400Systolic blood lbkjnuzz914 mm[Hg]Ellis Mijares DO Work Phone: [facility] SouthTdykautyen67-95-5528 12:36-0400Body jbbyrx548.6 Maulik Louise MD Work Phone: Bon [facility]05-26-2025 12:36-0400Body mass index (BMI) [Ratio]22.31 kg/m7QanyvytaeezDeysi Louise MD Work Phone: Bon [facility]05-26-2025 12:36-0400Body rbfrcwfijmx72.8 [degF]Deysi Louise MD Work Phone: [facility]05-26-2025 12:36-0400Body .97 kgDeysi Louise MD Work Phone: [facility]05-26-2025 12:36-0400Diastolic blood xtskcgep20 mm[Hg]Deysi Louise MD Work Phone: Bon [facility]05-26-2025 12:36-0400Heart rate88 /Fatemeh Louise MD Work Phone: Bon [facility]05-26-2025 12:36-0400 Respiratory rate18 /Fatemeh Louise MD Work Phone: [facility]05-26-2025 12:36-2072JsP8% (BldA) [Mass fraction]98 %Deysi Louise MD Work Phone: Bon [facility]05-26-2025 12:36-0400Systolic blood mvaclggx772 mm[Hg]Deysi Louise MD Work Phone: Bon [facility]05-21-2025 14:07-0400Body femkck710.6 cmCcorey Mijares DO Work Phone: [facility] SouthEgggaacwys32-86-5654 14:07-0400Body mass index (BMI) [Ratio]23 kg/d4Wzies Maryana DO Work Phone: [phone] [place], [place] [address]Glxhaeeplh75-93-2314 14:07-0400Body jdbabe04.78 kgCorey Maryana DO Work Phone: [phone] [place], [place] [address]Wjihfngxfh43-02-7189 14:07-0400Diastolic blood gtuykanh04 mm[Hg]Ellis Maryana DO Work Phone: [phone] [place], [place] [address]Gvgbixowcb54-35-4366 14:07-0400Systolic blood slxcungv095 mm[Hg]Ellis Maryana DO Work Phone: [phone] [place], [place] 1375705-13-2025 13:33-0400Body mass index (BMI) [Ratio]22.83 kg/s7Mqgsw Maryana DO Work Phone: [phone] [place], [place] [address]Xoieldqads04-87-0008 13:33-0400Body .33 kgCorey Maryana DO Work Phone: [phone] [place], [place] [address]Vipivccigj58-79-1654 13:33-0400Diastolic blood trvajnfw35 mm[Hg]Ellis Maryana DO Work Phone: [phone] [place], [place] [address]Vxcezjpgvf88-89-6277 13:33-0400Systolic blood wzuwgymn612 mm[Hg]Ellis Maryana DO Work Phone: [phone] [place], [place] 1375704-29-2025 09:03-0400Body mass index (BMI) [Ratio]22.49 kg/x9Gwexa Maryana DO Work Phone: [phone] [place], [place] 1375704-29-2025 09:03-0400Body .42 kgCorey Maryana DO Work Phone: [phone])[address] [place] [address]-29-2025 09:03-0400Diastolic blood lakfchez29 mm[Hg]Ellis Maryana DO Work Phone: [phone])[address] [place], [place] 1375704-29-2025 09:03-0400Systolic blood cfmticqo867 mm[Hg]Ellis Maryana DO Work Phone: [phone])[facility] [place] [address] Healthcare Encounters Encounter DateEncounter TypeCare ProviderFacilityStart: 12-18-2024 End: 50-29-7798Doloykqkm Result EncounterCorey Maryana DO Work Phone: [facility] External Department UnsolicitedStart: 12-18-2024 End: 34-42-5207Yrkronbez Result EncounterCorey Maryana DO Work Phone: [facility] External Department UnsolicitedStart: 12-18-2024 End: 08-10-0904Jceztjfd Result EncounterCorey Maryana DO Work Phone: noms External Department UnsolicitedStart: 12-15-2024 End: 81-10-7738Huypjspss Result EncounterCorey Maryana DO Work Phone: noms External Department UnsolicitedStart: 12-15-2024 End: 80-67-4756Wnxdtqrmw Result EncounterCorey Maryana DO Work Phone: noms External Department UnsolicitedStart: 12-13-2024 End: 13-58-5371Ayddbumqz department patient visitMauricio Funes MD Work Phone: [facility] Emergency DepartmentComment on above: Symptomatic anemia (Primary Dx); History of metrorrhagia; Menorrhagia with irregular cycleStart: 12-13-2024 End: 51-16-2002doquecysgmLNCOB FAZIONot AvailableStart: 12-13-2024 End: 96-49-2977Yjwkah outpatient visit 15 minutesCorey Maryana DO Work Phone: [facility] OBComment on above:Pre-op examination; Menorrhagia with regular cycle; Abnormal uterine bleeding (AUB); Pelvic painStart: 12-13-2024 End: 29-35-3773Kabmzdxincyse examination doneCorey Maryana DO Work Phone: noMS HealthcareStart: 12-13-2024 End: 05-19-9042Gxymqd flowsheetCorey Maryana DO Work Phone: noms BCP OBStart: 12-13-2024 End: 94-09-4952Cwdlbk flowsheetCorey Maryana DO Work Phone: noms BCP OBStart: 12-13-2024 End: 00-54-3162Wrzhbsqqv Result EncounterCorey Maryana DO Work Phone: [facility]oms External Department UnsolicitedStart: 11-13-2024 End: 39-80-8321Udldoenwh department patient visitChelizabeth Louise MD Work Phone: [facility] Emergency DepartmentComment on above: Nonspecific syndrome suggestive of viral illness (Primary Dx)Start: 11-08-2024 End: 41-26-6888Ybdknxcw Result EncounterCorey Maryana DO Work Phone: noms External Department UnsolicitedStart: 11-08-2024 End: 48-56-8619Gtdpjijw Result EncounterCorey Maryana DO Work Phone: noms External Department UnsolicitedStart: 11-08-2024 End: 74-71-7620Zjlanbt encounter procedureCorey Maryana DO Work Phone: NOOY BCP OBComment on above:ASCUS with positive high risk HPV cervicalStart: 11-08-2024 End: 64-81-5946frocpghjzqGCLEJ FAZIONot AvailableStart: 10-31-2024 End: 48-30-8924Nvvhpvym Result EncounterCorey Maryana DO Work Phone: n[facility] External Department UnsolicitedStart: 10-31-2024 End: 24-18-4037Zgbzjtdt Result EncounterCorey Maryana DO Work Phone: noms External Department UnsolicitedStart: 10-31-2024 End: 67-65-8172Iwfdlhv encounter procedureCorey Maryana DO Work Phone: noMS BCP OBComment on above:Pre-op evaluation; Menorrhagia with regular cycleStart: 10-31-2024 End: 27-28-9369Xuvpdsuhruxnw examination doneCorey Maryana DO Work Phone: [facility] HealthcareStart: 10-31-2024 End: 75-81-2994gfhgprdybcPAUNZ FAZIONot AvailableStart: 10-17-2024 End: 06-09-6581Urlvun flowsheetCorey Maryana DO Work Phone: noMS BCP OBStart: 10-17-2024 End: 42-59-3408Vvqyjv flowsheetCorey Maryana DO Work Phone: noms BCP OBStart: 10-17-2024 End: 35-63-0591Shnvnhjuq Result EncounterCorey Maryana DO Work Phone: n[facility] External Department UnsolicitedStart: 10-17-2024 End: 48-58-4953Cstvkuz encounter procedureCorey Maryana DO Work Phone: [facility] Work Phone: Start: 10-17-2024 End: 43-90-4700Nlytzmaa preventive med est patient 18-39 yrsCorey Maryana DO Work Phone: noms BCP OBComment on above:Well woman exam with routine gynecological exam; Menorrhagia with regular cycleStart: 10-17-2024 End: 10-96-2301xvaxryaxzoTZBFF FAZIONot AvailableStart: 10-07-2022 End: 33-12-7615recxajkinwTH DOCTOR MISCFacility:B7Mhqla: 07-27-2022 End: 33-03-9513nkzpaxumygXC DOCTOR MISCFacility:Z0Mvnhc: 07-31-2021 End: 94-66-3857Ykiyaoluyb hospital visit by physicianMwh Covid19 Pat Screening ScheduleMWHZ PRE ADMITComment on above:Suspected 2019-nCoV infectionStart: 48-59-5276DugwwyxdcoAulzcc MarcanthonyFacility:[facility] Centertart: 74-40-5489OdnhmrvybwTwqptq MarcanthonyFacility:[facility] Centertart: 04-12-2017 End: 55-55-8213Zuynqlaive and management of inpatientSpaul Castelan Facility:[facility]ertart: 63-62-5918LuovljwyxvZhifswTonja Castelan Facility:[facility]ertart: 02-01-2017 End: 39-87-3079WdjxofyzjaYZISPS MODIRiverside Synagogue HospitalStart: 12-16-2016 End: 26-46-9953Beqwxyhha department patient Paul AzulFacility:[place] Procedures DateProcedureProcedure DetailPerforming ClinicianStart: 65-33-6018QVZFTHXBU REQUEST FOR LAB CORPCorey Maryana DO Work Phone: Start: 73-10-9298KQY CBC WITH AUTO DIFFCorey Maryana DO Work Phone: Start: 94-15-2289NH PELVIS W/ TRANSVAGINALCorey Maryana DO Work Phone: Start: 95-07-1000OM CHEST 2VCorey Maryana DO Work Phone: Start: 13-69-6219Zbgfoycp screenCorey Maryana DO Work Phone: Start: 84-70-6941EOS TYPE AND SCREENCorey Maryana DO Work Phone: Start: 12-13-2024 End: 96-52-5474Kmtpswhnzlq of packed red blood cellsMauricio Funes MD Work Phone: Start: 57-36-5106Ziq routine ecg w/least 12 lds w/i&r Mauricio Funes MD Work Phone: Start: 78-03-1268Jdzrn metabolic panel calcium total Mauricio Funes MD Work Phone: Start: 26-33-3312Twhhd typing serologic Marlo Funes MD Work Phone: Start: 66-10-6472EEG HEMOGLOBIN I3PEqhhe Maryana DO Work Phone: Start: 82-90-8655Rsrxzqlvra exam chest 2 views Deysi Louise MD Work Phone: Start: 54-39-7142BGFUDDXHRMKulkc Maryana DO Work Phone: Start: 11-08-2024 End: 88-49-7199Xmpic dip stick/tablet rgnt non-auto w/o micrscpCorey Maryana DO Work Phone: Start: 49-35-5587NLSVHLDCJ REQUEST FOR LAB CORPCorey Maryana DO Work Phone: Start: 82-07-0960Pymon dip stick/tablet rgnt non-auto w/o micrscpCorey Maryana DO Work Phone: Start: 19-24-0874TIBXOIFUO REQUEST FOR LAB CORPCorey Maryana DO Work Phone: Start: 48-44-7998ITR,APTIMA HPV,AGE GDLNCorey Maryana DO Work Phone: Start: 68-37-2604Klnp cerv/vag auto thin layer prep mnl screenCorey Maryana DO Work Phone: Start: 71-07-8497SWLBC-19, RAPIDJessica L Hoda DO Work Phone: start: 72-35-4121Ijhcbgyjauy observation [Identifier] in Cervix by Cyto stainMwh Schedule Plan of Treatment DateCare ActivityDetailAuthorStart: 20-87-2952BKxD/Tdap/Td vaccine (9 - Td or Tdap)DTaP/Tdap/Td vaccine (9 - Td or Tdap)[facility]Start: 05-[facility]2025 End: 68-27-3876Dwxzkeo encounter hykviecjz27/25/2025 2:00 PM EST Procedure Visit [facility] [address] [place] [address] Ellis Mijares, DO [address] [place] [address] [facility] OBStart: 62-39-5395Cqahnvxwq vaccinationNOMS HealthcareStart: 01-23-2025 End: 94-92-5268Zdiqcjw encounter dloccjacl85/05/2025 1:30 PM EDT Office Visit [facility] [address] [place] [id number] Day Reid PA [address] [place], [place] [id number] [facility] BCP OBStart: 84-05-1681Dkcehaxgj vaccinationFlu vaccine (Season Ended)[facility]Start: 12-06-2024 End: 54-84-0239Oxxdcdx encounter qvldvujak74/18/2025 1:30 PM EDT Office Visit [facility] [address] [place] [address] Day Reid PA [address] [place], [place] [id number] [facility] BCP OBStart: 11-08-2024 End: 70-50-0764HfytaphphoSzsmkvqtfo Procedures Routine ASCUS with positive high risk HPV cervical Expected: 11/08/2024 (Approximate), Expires: [facility]25[facility] Work Phone: comment on above:Expected: 11/08/2024 (Approximate), Expires: 11/08/2025Start: 11-08-2024 End: 81-02-1362Pyrhqrz encounter dszmoqbsx86/21/2025 1:30 PM EDT Procedure Visit [facility] [address] [place] [address] Ellis Mijares, DO [address] [place] [address] [facility] BCP OBStart: 10-31-2024 End: 14-65-8743Sfiintq encounter eijmkddxs12/13/2025 1:30 PM EDT Procedure Visit [facility] OB [address] [place] [address] Ellis Mijares, DO [address] [place], [place] [id number] [facility] BCP OBStart: 10-17-2024 End: 57-02-5383bOZE in Blood by Coagulation assayAPTT Lab Routine Menorrhagia with regular cycle Expected: 10/17/2024 (Approximate), Expires: 10/17/2025NONM HealthcareComment on above:Expected: 10/17/2024 (Approximate), Expires: 10/17/2025Start: 10-17-2024 End: 80-66-8194YL PelvisUS Pelvis w/ TV Imaging Routine Menorrhagia with regular cycle Expected: 10/17/2024, Expires: 10/17/2025NOMS HealthcareComment on above: Expected: 10/17/2024, Expires: 10/17/2025Start: 10-17-2024 End: 17-46-3964Jafjmru encounter eucfiaakg58/29/2025 9:00 AM EDT Office Visit [facility] OB [address] [place] [phone] Ellis Mijares, DO [address] [place] [address] ArrivedNOADVENTIST HEALTH VALLEJO OBComment on above:ArrivedStart: 18-33-8564Uchjzodcby ScreenDepression ScreenBon [facility]: 43-52-9431WPHWK-19 Vaccine ( season)COVID-19 Vaccine ( season)Bon [facility]: 63-48-2790Bvlouqcxh for malignant neoplasm of cervixPap smearK[facility]tering [facility]: 72-57-5855Stajsnuyc vaccinationFlu vaccine (#1)[facility]: 66-72-3475Vjcmpzsma C screeningHepatitis C screenBon [facility]: 32-27-4335GHQ screeningHIV screenKettering Health [facility]: 19-06-8614Xlkaoyknki ScreenDepression ScreenKettering Health [facility]: 24-98-7902RQC vaccine (1 - 2-dose series)HPV vaccine (1 - 2-dose series)[facility]: 78-47-0441EOYES-19 Vaccine (1)COVID-19 Vaccine (1)[facility]: 04-06-2000 Varicella vaccine (2 of 2 - 2-dose childhood series)Varicella vaccine (2 of 2 - 2-dose childhood series)[facility]: 36-46-9677Nuuohyaef C screening Hepatitis C screenUniversity Hospitals [facility] HealthB[facility] W Auto Differential panel - BloodCBC and differential Lab Routine Menorrhagia with regular cycle Ordered: 10/17/2024[facility] SouthComment on above:Ordered: 10/17/2024ytology Cervical or vaginal smear or scraping studyPap Smear Pathology and Cytology Routine Well woman exam with routine gynecological exam Ordered: 10/17/2024[facility] Work Phone: comment on above:Ordered: 10/17/2024EKG 12 Lead (Chest Pain)EKG 12 Lead (Chest Pain) ECG STAT 12/13/2024 6:23 PM EDTBMartinsville Memorial HospitalEndometrial biopsyEndometrial biopsy Procedures Routine Menorrhagia with regular cycle Ordered: 10/31/2024[facility] Healthcare Work Phone: comment on above:Ordered: 10/31/2024hCG, quantitative, pregnancyhCG, quantitative, Lab Routine Menorrhagia with regular cycle Ordered: 10/17/2024[facility] SouthComment on above:Ordered: 10/17/2024 Hemoglobin A1c/Hemoglobin.total in BloodHemoglobin A1c Lab Routine Menorrhagia with regular cycle Ordered: 10/17/2024[facility] SouthComment on above:Ordered: 10/17/2024 End: 43-69-3437Xdkggtukwu and HematocritHemoglobin and Hematocrit Lab Routine Post Transfusion Post Transfusion Post Transfustion until discontinued starting 12/13/2024[facility] on above:Post Transfusion Post Transfusion Post Transfustion until discontinued starting 12/13/2024 End: 44-66-1061PIRZLFM RBC (CROSSMATCH), 1 UnitsPREPARE RBC (CROSSMATCH), 1 Units Blood Bank Routine Once for 1 Occurrences starting 12/13/2024 until 12/13/2024[facility] on above:Once for 1 Occurrences starting 12/13/2024 until 12/13/2024Prothrombin time (PT) in Blood by Coagulation assayProtime-INR Lab Routine Menorrhagia with regular cycle Ordered: 10/17/2024[facility] HealthcareComment on above:Ordered: 10/17/2024Thyrotropin [Units/volume] in Serum or PlasmaTSH Lab Routine Menorrhagia with regular cycle Ordered: 10/17/2024[facility] HealthcareComment on above:Ordered: 10/17/2024Thyroxine (T4) free [Mass/volume] in Serum or PlasmaT4, free Lab Routine Menorrhagia with regular cycle Ordered: 10/17/2024[facility] HealthcareComment on above:Ordered: 10/17/2024TYPE AND SCREENTYPE AND SCREEN Blood Bank STAT 12/13/2024 5:37 PM EDT [facility] Immunizations Immunization DateImmunizationNotesCare TdsheuezWvuuepgd68-49-8381Uerasy Christopher Davis MD Work Phone: bon [facility] SystemRjdlmq39-97-9885jgliszg toxoid, reduced diphtheria toxoid, and acellular pertussis vaccine, adsorbedDeysi Louise MD Work Phone: bon [facility] SystemTnclbh23-69-6089gvnqqmoey virus vaccine, unspecified formulationOhiohealth Riverside Methodist Hospitalmojgan Maryanashazia CHOUDHURY Work Phone: [facility] SouthVistyovoku20-67-3984rtujpzr toxoid, reduced diphtheria toxoid, and acellular pertussis vaccine, adsorbedDeysi Louise MD Work Phone: bon [facility] SystemWrxkkr02-42-4507lxfxvxbhw virus vaccine, unspecified formulationDeysi Louise MD Work Phone: bon [facility] SystemZucgyt13-78-5028jqnyjsv toxoid, reduced diphtheria toxoid, and acellular pertussis vaccine, adsorbedMwh Schedule Peoples HospitalBtswob68-86-5979kpvqeblfdm, tetanus toxoids and acellular pertussis vaccine, unspecified formulationDeysi Louise MD Work Phone: bon [facility] SystemVytxdh03-72-1242mywtjii, mumps and rubella virus vaccineChelizabeth Louise MD Work Phone: bon [facility] SystemRqbypa66-96-9661kogxaldji poliovirus vaccine, live, oralChelizabeth Louise MD Work Phone: Bon [facility] SystemVdgjht47-77-2830umpumvcid virus vaccineDeysi Louise MD Work Phone: Bon [facility] SystemPsfzui67-00-5282zdtsmoiqjv, tetanus toxoids and acellular pertussis vaccine, unspecified formulationDeysi Louise MD Work Phone: Bon [facility] SystemKqmdss82-82-4286tqyrptgezev influenzae type b vaccine, conjugate unspecified formulationDeysi Louise MD Work Phone: Bon [facility] SystemKkphcj97-72-2796ivuadxu, mumps and rubella virus vaccineChrissuki Louise MD Work Phone: Bon [facility] SystemFslhmb25-14-9894CHD-Srpqcpjuqin influenzae type b conjugate vaccineChelizabeth Louise MD Work Phone: Bon [facility] SystemRiyooa39-10-2934imosdehpp B vaccine, pediatric or pediatric/adolescent dosageChelizabeth Louise MD Work Phone: Bon [facility] SystemCvfuog83-30-5387bttvpinay poliovirus vaccine, live, oralDeysi Louise MD Work Phone: Bon [facility] SystemNxmuxh62-52-1256TJW-Dcxtevrulzi influenzae type b conjugate vaccineDeysi Louise MD Work Phone: Bon [facility] SystemEzhula44-89-2478betscehzg poliovirus vaccine, live, oralChelizabeth Louise MD Work Phone: Bon [facility] SystemBaovcf34-13-7839IYR-Xbfmktdivtf influenzae type b conjugate vaccineDeysi Louise MD Work Phone: Bon [facility] SystemJzsbiy66-78-2241duwrtmrte B vaccine, pediatric or pediatric/adolescent dosageChelizabeth Louise MD Work Phone: Bon [facility] SystemNkaqdn62-58-1624bmhlszudh poliovirus vaccine, live, oralChelizabeth Louise MD Work Phone: Bon [facility] SystemHwodzg87-96-5212femmwofqg B vaccine, pediatric or pediatric/adolescent dosageChelizabeth Louise MD Work Phone: [facility] Payers DatePayer CategoryPayerPolicy [id number] MEDICAID [id number] [employer] [place] MEDICAID [id number] 2017-Present [phone] [address] [place] [id number] 2.0.1.882148.3.57[id number] 2.840.1.679225.3.57[id number] 2.16840.1.280080.3.57[id number] 2.16840.1.191251.3.57[id number] 2.16840.1.069882.3.57[id number] 2.840.1.236270.3.57[id number] [id number] Social History DateTypeDetailFacilityStart: 75-28-8538Dgnaeww smoking status NHISNever smoked tobaccoUniversity Hospitals Cleveland Medical Center [employer] Work Phone: start: 12-06-2019 End: 71-50-4663Jxvyfpr intakeCurrent non-drinker of alcohol (finding)[facility] [employer] Work Phone: start: 95-52-1882Qqzwgxa SDOH Lounfvzzi7Lagur [employer] Work Phone: start: 29-88-7241Zdpyriq SDOH Food Bllys1Fhdhr [employer] Work Phone: start: 66-05-1894Yhb Assigned At BirthNot on [facility] [employer] Work Phone: Tobacc smoking status NHISTobacco smoking consumption [facility] HealthcareStart: 63-70-9290Dax assigned at birthFeMassachusetts General Hospital HealthcareStart: 35-71-1127Dgfsuv identityIdentifies as female gender (finding) [facility] HealthcareStart: 11-13-2024 End: 57-87-4308Ybxisb orientationNot on [facility] HealthcareStart: 05-10-2023 Tobacco use and exposureSmokeless tobacco non-userBon [facility] CenterPeer.im Peoples HospitalStart: 11-13-2024 End: 48-40-8629Nlawiub of Social functionBon [facility] CenterPeer.im [facility] HospitalBCB Medical HealthHow often to you have a drink containing alcohol?NeverBon [facility] CenterPrizeBox™ HealthHow many standard drinks containing alcohol do you have on a typical day?Patient does not drinkBon [facility] CenterPrizeBox™ Health(I/We) worried whether (my/our) food would run out before (I/we) got money to buy more.Never trueBon [facility] CenterPeer.im [facility] HospitalBCB Medical [facility] HospitalStart: 71-76-7318EbnMrbgwp (finding)[facility] MontgomeryTalkTo Functional Status DateAssessmentResultFacilityCentra [facility] HealthBon [facility] Clinical Notes 02-01-2020 to 12-13-2024 Note Date & PwstYpewRrjnclcv77-08-1634 History of Present illness Narrative* Shawna Nassar - 12/13/2024 2:10 PM EDT Reason for Appointment: Patient ID: Femi Kramer is a 29 y.o. female who presents for Pre-op Visit Patient presents today for Pre Op appointment. Patient is scheduled to undergo Endometrial Ablationwith Ana on 01-11-[address] Mijares at [facility]. MEDICATIONS No current outpatient [...] nursing note reviewed. Exam conducted with a management tech present. Vitals: Estimated body mass index is [...] reviewed, and patient is to proceed to [facility]. Follow Up: Patient is to follow up between 1-2 weeks post op to assess proper healing and recovery from procedure. Documented by Kimberly Resendiz LPN on behalf of: day reid, pac documented in this encounterCox SouthAchhrkuhli17-02-0886 History of Present illness Narrative* Kimberly Resendiz LPN - 11/08/2024 1:30 PM EDTAssociated Order(s): Colposcopy Post-Procedure Diagnose(s): ASCUS with positive high risk HPV cervical Reason for Appointment: Patient ID: Femi Kramer is a 29 y.o. female who presents for Abnormal Pap Smear (Pt present todaya Colposcopy procedure. Pt had an abnormal pap [...] nursing note reviewed. Exam conducted with a management tech present. Vitals: Estimated body mass index is [...] of: Ellis Mijares DO documented in this encounterCox SouthAccnyyizhu91-45-8863 History of Present illness Narrative* Kimberly Resendiz LPN - 10/31/2024 1:30 PM EDT Reason for Appointment: Patient ID: Femi Kramer is a 29 y.o. female who presents for No chief complaint on file. Patient presents today for Pre Op/Endometrial Biopsy appointment. Patient is scheduled to undergo Endometrial Ablation with Ana on 11/24/[address] Mijares at [facility]. MEDICATIONS No current outpatient [...] nursing note reviewed. Exam conducted with a management tech present. Vitals: Estimated body mass index is [...] reviewed, and patient is to proceed to [facility]. Follow Up: Patient is to follow up between 1-2 weeks post operative to assess proper healing and recovery fromprocedure. Documented by Kimberly Resendiz LPN on behalf of: Ellis Mijares DO documented in this encounterCox SouthPzbgeribbq05-54-8207 History of Present illness Narrative* Shruthi Arredondo LPN - 10/17/2024 9:00 AM EDT Reason for Appointment: Patient ID: Femi Kramer [...] of: Ellis Mijares DO documented in this encounterCox SouthYjrsypgbsg69-09-2411 NoteThe following Patient Education Materials have been given to the patient: [facility]12-11-2020 NotePatient: FEMI KRAMER Age: 24 years Sex: Female [...] Oral, q6hr PRN Pain 1-3, Routine, Start date05/29/20 15:37:00 EST acetaminophen-codeine 300 mg-30 mg Tab: 2 tab(s), Tab, Oral, q6hr PRN Pain 4-7, Routine, Start date05/29/20 15:37:00 EST benzocaine-menthol 20%-0.5% topical spray: 1 spray(s), [place], Topical, q4hr PRN Pain, Routine, Start date [...] 8:38:00 EDT, Height/Length Measured, 71.9, kg, 11/07/19 8:38:00EDT, Weight Measured valacyclovir 500 mg Tab: 500 mg = 1 tab(s), Oral, q12hr, # 30 tab(s), Refills(s) 1, Pharmacy: [facility], 163, cm, 04/25/20 11:47:00 EST, Height/Length [...] of motion. Normal strengt (more content not included)...[facility]S Medical CenterComment on above:Result Comment: Electronically Signed By: Ludivina GARDNER MD\.br\Date and Time Signed: 05/31/20 06:54 [id number] NotePatient: FEMI KRAMER Age: 24 years Sex: Female [...] normal in third trimester / SNOMED CT 720722299 / Confirmed / SNOMED CT 843568064 / Confirmed Genital herpes simplex virus (HSV) infection in mother affecting / SNOMED CT 0185452405 /Confirmed Depression during , antepartum / SNOMED CT 8105021716 / Confirmed Histories History History (0,0,0,1) # 1 Baby 1 Outcome Date: 04/12/2017 Outcome: Live Outcome or Result: Vaginal Gender: Female Gest Age: 37 weeks Wt: 3033 g Hospital: [facility] Labor: -- Child's Name: -- Baby's Father: -- Comment: Tenzin Family History: Hypertension Grandparent Diabetes mellitus type 1 Grandparent Procedure history: Tonsillectomy (272466318). 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 Substance Abuse Denies Substance Abuse (11/07/2019) DENIES [...] evidence of descent -3, membrane status ruptured artificially,amniotic fluid (moderate amount, clear fluid). Musculoskeletal Normal range of motion. Normal strength. Integumentary: Warm, Dry. Neurologic: Alert, Oriented. Psychiatric: Cooperative, Appropriate mood & affect. Impression and Plan 24 yo @ 39 wga with h/o depression and HSV 1. Admitted, previously consented 2. Pitocin for induction 3. AROM performed - clear fluid 4. Epidural prn Ludivina Gardner MDMercy Health St. Rita'S Medical CenterComment on above:Result Comment: Electronically Signed By: Ludivina GARDNER MD\.br\Date and Time Signed: 05/29/20 16:56 [id number] NoteAllergy and Immunology Immunizations and Immunizations can help keep you [...] immunizations are up-to-date before becoming . Before yourpregnancy, it is safe and important for you [...] your caregiver at least 4 to 6 weeksbefore your trip. Discuss precautions or vaccine options. [...] disease exposure for international travelers include: ? Montserratian encephalitis (JE). ? Meningococcal meningitis (MPSV4 or MCV4). ? Pneumococcal polysaccharide (PPSV23). ? IPV. ? Rabies. ? Typhoid. ? YF. Immunizations that should not be given to international travelers include: ? BCG tuberculosis. ? MMR. ? MMRV. ? Human papillomavirus (HPV4 or HPV2). ? CORNELIA. ? LAIV. Document Released: 06/26/2008 Document Revised: 08/29/2012 Document Reviewed: 07/21/2012 ExitCare? Patient Information ?2013 [employer].[facility] 02-01-2020 NoteAllergy and Immunology Immunizations and Immunizations can help keep you [...] immunizations are up-to-date before becoming . Before yourpregnancy, it is safe and important for you [...] your caregiver at least 4 to 6 weeksbefore your trip. Discuss precautions or vaccine options. [...] disease exposure for international travelers include: ? Montserratian encephalitis (JE). ? Meningococcal meningitis (MPSV4 or MCV4). ? Pneumococcal polysaccharide (PPSV23). ? IPV. ? Rabies. ? Typhoid. ? YF. Immunizations that should not be given to international travelers include: ? BCG tuberculosis. ? MMR. ? MMRV. ? Human papillomavirus (HPV4 or HPV2). ? CORNELIA. ? LAIV. Document Released: 06/26/2008 Document Revised: 08/29/2012 Document Reviewed: 07/21/2012 ExitCare? Patient Information ?[address] [facility] Evaluation note* Diagnosis Suspected 2019-nCoV infection documented in this encounter [facility] HospitalForter Phone: evaluation note* Diagnosis Well woman exam with routine gynecological exam Routine gynecological examination Menorrhagia with regular cycle documented in this encounter [facility] HealthcareEvaluation note* Diagnosis Pre-op evaluation Menorrhagia with regular cycle documented in this encounter [facility] HealthcareEvaluation note* Diagnosis ASCUS with positive high risk HPV cervical documented in this encounter [facility] HealthcareEvaluation note* Diagnosis Nonspecific syndrome suggestive of viral illness- Primary documented in this encounter [facility] note* Diagnosis Symptomatic anemia- Primary History of metrorrhagia Personal history of other genital system and obstetric disorders Menorrhagia with irregular cycle Excessive or frequent menstruation documented in this encounter [facility] note* Diagnosis Pre-op examination Menorrhagia with regular cycle Abnormal uterine bleeding (AUB) Pelvic pain [facility] in [facility] encounter [facility]* Attachments The following attachments cannot be sent through Care Everywhere. * Viral Infections (Cymro) [facility] Dis[facility]* Attachments The following attachments cannot be sent through Care Everywhere. * Blood Transfusions: General Info (Cymro) * Hysterectomy: Vaginal: Pre op (Cymro) [facility] in this encounterBon [facility] Summary Purpose Family History No Family History Records FoundNo Family History Records FoundNo Family History Records FoundNo Family History Records FoundNo Family History Records FoundNo Family History Records FoundNo Family History Records FoundNo Family History Records FoundNo Family History Records Found Advance Directives TypeDate RecordedPatient RepresentativeExplanationACP-Advance DirectiveACP-Power of AttorneyCode StatusDate ActivatedDate InactivatedCommentsFull Code04/22/2016 9:51 PM04/23/2016 1:04 PMDate ActivatedDate IltrhgwhtajGxtxnkdo69/2/2016 9:51 PM 04/23/2016 1:04 PM Additional Source Comments INFORMATION SOURCE (unrecogn ized section and content) DATE CREATED AUTHOR 12/10/2017 [facility] DATE CREATED AUTHOR AUTHOR'S MANASA STALLWORTH 12/15/2017 [facility] DATE CREATED AUTHOR AUTHOR'S ORGANIZ ATION 12/15/2017 [facility] DATE CREATED AUTHOR AUTHOR'S ORGANIZ ATION 01/11/2020 [facility] DATE CREATED AUTHOR AUTHOR'S ORGANIZ ATION 2020 [facility] DATE CREATED AUTHOR AUTHOR'S ORGANIZ ATION 01/01/[address] [facility] DATE CREATED AUTHOR AUTHOR'S ORGANIZ ATION 10/16/2022 [facility] DATE CREATED AUTHOR AUTHOR'S ORGANIZ ATION 12/14/2024 [facility] DATE CREATED AUTHOR AUTHOR'S ORGANIZ ATION 12/18/2024 [facility] Care Teams (unrecognized sec tion and content) Team MemberRelationshipSpecialtyStart DateEnd Date Giuliana Mckee DO [address] [place] [address] PCP - Vttxdjg19/2/16Team MemberRelationshipSpecialtyStart DateEnd Date Giuliana Mckee DO [address] [place] [address] PCP - GeneralInternal Medicine10/14/23 Ellis Mijares, DO [facility] [place] [address] PCP - [facility]09/20/23Team MemberRelationshipSpecialtyStart DateEnd Date Giuliana Mckee, [address] [place] [address] [facility]10/14/23 Ellis Mijares, DO [facility] [place] [address] PCP - [facility]09/20/23Team MemberRelationshipSpecialtyStart DateEnd Date Giuliana Mckee DO [address] [place] [address] [facility] - [facility]10/14/23 Ellis Mijares, DO [address] [place] [address] PCP - [facility]09/20/23Team MemberRelationshipSpecialtyStart DateEnd Date Giuliana Mckee, [address] [place], [phone] [facility] - [facility]10/14/23 Ellis Mijares, DO [address] [place], [facility]11 [facility] - [facility]09/20/23Team MemberRelationshipSpecialtyStart DateEnd Date Giuliana Mckee, [address] [place] [address] PCP - [facility]10/14/23 Ellis Mijares, DO [address] [place] [address] PCP - [facility]09/20/23Team MemberRelationshipSpecialtyStart DateEnd Date Giuliana Mckee DO [address] [place] [address] PCP - Deaoqbt33/2/16Team MemberRelationshipSpecialtyStart DateEnd Date Giuliana Mckee DO [address] [place] [phone] PCP - Yyfasis04/2/16Team MemberRelationshipSpecialtyStart DateEnd Date Giuliana Mckee DO [address] [place] [address] [facility] - [facility]23 Maryana Ellis, DO [address] [place] [address] [address] [place], [place] [id number] PCP - [facility]09/20/23 Reason for Visit (unrecogniz ed section and content) ReasonCommentsWell Women VisitReasonCommentsAbnormal Pap SmearPt present today a Colposcopy procedure. Pt had an abnormal pap smear ASCUS HPV+ on 10/17/2024. ReasonCommentsCold SymptomsCough, runny nose, chills started on . No medications taken.ReasonCommentsIrregular MensesPatient sent from OB doctor after having blood drawn today for low HGB. Patient stated she has irregular menses that are often heavy in nature. Denies . Had tubal. Denies any symptoms.ReasonCommentsPre-op Visit Ordered Prescriptions (unrec ognized section and content) PrescriptionSigDispense QuantityRefillsLast FilledStart DateEnd Date loratadine (CLARITIN) 10 MG tablet Take 1 tablet by mouth daily 30 tablet Xmpagrvxthtksbf-MR-GR 60-15-400 MG TABS Take 1 tablet by [...] BE BASED ON THE PRIMARY CLINICAL RECORDS. [facility]. provides no warranty or guarantee of the accuracy or completeness of information in this document.
== END 2025-05-15 19:43 | disposition home or self-care (01) ==
LOC: LAB 19:42
PROVIDERS: PCP Student in an Organized Health Care Education/Training Program; Visit Provider Obstetrics & Gynecology
DX: R87.610 Atypical squamous cells of undetermined significance on cytologic smear of cervix (ASC-US) (principal)
CPT/HCPCS: 88175